=== PATIENT | female | born 1945 | race Caucasian/White ===

== ENCOUNTER → 2016-10-15 | Outpatient (CLI) | payer MEDICARE ==
[2016-10-15 08:30] LABS: Basophils % (A) 1 %; CHCM 31.8; Eosinophils # (A) 0.1 k/uL (0-0.7); Eosinophils % (A) 3 %; HCT 41.1 % (34.0-46.0); HDW 2.19; HGB 12.6 gm/dL (11.4-16.0); Luc # (Auto) 0.13; Luc % (Auto) 3; Lymphocytes # (A) 1.2 k/uL (1.0-4.8); Lymphocytes % (A) 24 %; MCH 29.2 pg (25.0-35.0); MCHC 30.8 g/dL (31.0-37.0); MCV 94.8 fL (80.0-100.0); Mean Platelet Volume 7.6; Monocytes # (A) 0.4 k/uL (0-1.0); Monocytes % (A) 7 %; Neutrophils # (A) 3.2 k/uL (1.3-7.7); Neutrophils % (A) 63 %; RBC 4.33 m/uL (3.80-5.40); RDW 13.6 % (11.5-15.5); WBC 5.1 k/uL (3.8-10.6); WBC (Perox) 5.31
[2016-10-15 08:39] LABS: ALT 37 U/L (9-52); AST 23 U/L (14-36); Alkaline Phosphatase 74 U/L (38-126); Anion Gap 9 mmol/L; Blood Urea Nitrogen 19 mg/dL (7-17); Calcium 9.3 mg/dL (8.4-10.2); Carbon Dioxide 28 mmol/L (22-30); Chloride 104 mmol/L (98-107); Glucose 100 mg/dL (74-99); Non-African American GFR(MDRD) 55 (>60 ml/min/1.73 sqM); Potassium 4.3 mmol/L (3.5-5.1); Sodium 141 mmol/L (137-145); Total Bilirubin 0.9 mg/dL (0.2-1.3); Total Protein 6.5 g/dL (6.3-8.2)
[2016-10-15 10:33] LABS: Prealbumin 21 mg/dL (18-36)
--- NOTE | 2016-10-15 11:41 | CT ---
EXAMINATION TYPE: CT abdomen pelvis w con DATE OF EXAM: 10/15/2016 9:22 AM COMPARISON: 10/11/2015 INDICATION: intraductal papillary mucinous neoplasm DLP: 1630 mGycm, Automated exposure control for dose reduction was used. CONTRAST: 100 ml mL of Visipaque 320. Study performed with Oral Contrast TECHNIQUE: Axial images were obtained from above the diaphragm to the pubic rami in the axial plane a t 5 mm thick sections. Reconstructed images are reviewed on the computer in the coronal plane. Prein travenous contrast imaging was performed through the abdomen. FINDINGS: Limited CT sections are obtained the lung bases. There is a calcification at the posterior lateral l eft lung base with some mild soft tissue surrounding. This appears central and likely is a 0.5 cm gra nuloma. Following stability over the course of 2 years is recommended. Lung bases are otherwise clear .. Small hiatal hernia is present. CT ABDOMEN: There is an anterior abdominal wall hernia containing mesenteric fat with an opening 1.3 cm. Series 8 image 35. Liver: There is mild diminished density within the liver compared to the spleen compatible with mild to moderate fatty infiltration of the liver. No discrete masses or cysts are evident Spleen: Normal Pancreas: Within the inferior posterior head of the pancreas at the uncinate process of the pancreas is hypodense measuring 1.8 x 1.3 cm in size. This is slightly larger than the comparison of 2016 ic h measured 1.0 x 1.3 cm . An additional area measuring 1.3 x 1.1 cm at the inferior uncinate process . This area is essentially stable from the comparison. An additional subtle hypodensities measuring 0 .7 cm within the proximal body posteriorly within the pancreas. The second area is less well visualiz ed on the precontrast images. This could be volume averaging with some fatty infiltration. This does appear to be persistent on the delayed images suggesting this may be a real and new finding. Adrenal glands: The adrenal glands are normal. Gallbladder: Normal Kidneys: No masses are evident. No hydronephrosis is present. No cysts are present. Delayed images were obtained through the kidneys, which remain unremarkable. Aorta: Vascular calcification is within the aorta. Inferior vena cava: Normal. CT PELVIS: Loops of bowel within the abdomen and pelvis are normal. There are loops of bowel which are incom pletely distended or lack oral contrast limiting their evaluation. Fecal debris is through the colon. Appendix: Not visualized. Surgical clip may be present. Correlate with the surgical history. Urinary bladder: Normal. Genitourinary structures: Uterus and ovaries are not identified. Phleboliths are within the pelvis. Osseous structures: No suspicious lytic or sclerotic lesions. Facet degenerative changes are present. IMPRESSIONS: 1. There appear to be 2 hypodensities within the head of the pancreas, the larger at 1.8 x 1.3 cm so mewhat increased in size from prior study. A new hypodensity may be within the proximal body of the p ancreas is well. 2. Probable granuloma within the left lung base, present 10/11/2015
== END ==
LOC: RADCTMAIN 07:51
PROVIDERS: ATTEND Surgery
DX: D49.0 Neoplasm of unspecified behavior of digestive system (principal)
CPT/HCPCS: 84134; 80053; 85025; 86301; 74150; 74177; 36415; Q9967

== ENCOUNTER 2016-10-21 11:45 | Emergency (ER) | payer MEDICARE ==
[2016-10-21 11:56] VITALS: RESP 16
[2016-10-21] MEDS ORDERED: ACETAMINOPHEN IV (For NPO) 1,000 MG in SALINE 100 100ML.BAG IVPB STA (13:22)
[2016-10-21] MEDS ORDERED: SODIUM CHLORIDE 0.9% 1,000 ML IV STA (13:22)
[2016-10-21 13:46] LABS: Basophils % (A) 0 %; CH 29.8; Eosinophils # (A) 0.2 k/uL (0-0.7); Eosinophils % (A) 5 %; HDW 2.26; HGB 12.5 gm/dL (11.4-16.0); Luc # (Auto) 0.19; Luc % (Auto) 4; Lymphocytes # (A) 1.4 k/uL (1.0-4.8); Lymphocytes % (A) 30 %; MCH 30.1 pg (25.0-35.0); MCHC 32.2 g/dL (31.0-37.0); MCV 93.6 fL (80.0-100.0); Monocytes # (A) 0.3 k/uL (0-1.0); Monocytes % (A) 6 %; Neutrophils # (A) 2.5 k/uL (1.3-7.7); Neutrophils % (A) 54 %; RBC 4.16 m/uL (3.80-5.40); RDW 13.5 % (11.5-15.5); WBC 4.5 k/uL (3.8-10.6); WBC (Perox) 4.64
[2016-10-21 13:51] LABS: Appearance,Urine Clear (Clear); Bilirubin,Urine Negative (Negative); Glucose,Urine (UA) Negative (Negative); Ketones,Urine Negative (Negative); Leukocyte Esterase,Urine Small (Negative); Mucus,Urine Rare /hpf; Nitrite,Urine Negative (Negative); PH, Urine 5.5 (5.0-8.0); Particle Count 1658; Protein,Urine Negative (Negative); RBC,Urine 1 /hpf (0-5); Specific Gravity,Urine 1.008 (1.001-1.035); Squamous Epithelial Cell,Urine 2 /hpf (0-4); UA Billing (MACRO vs. MICRO) MICRO; Urobilinogen,Urine <2.0 mg/dL (<2.0); WBC,Urine 7 /hpf (0-5)
--- NOTE | 2016-10-21 13:51 | ED ---
General Adult HPI - General Chief complaint: Abdominal Pain Stated complaint: Rt flank pain Time Seen by Provider: 10/21/16 13:14 Source: patient, RN notes reviewed, old records reviewed Mode of arrival: ambulatory Limitations: no limitations - History of Present Illness Initial comments: Patient 71-year-old female who presents emergency room today chief complaint of lower abdominal pain but certain 6 days ago. Does admit to pain right lower quadrant. States it's worse with movements. States worse when she goes to sit up. Patient denies any particular pain. Denies any bowel or bladder incontinence retention. Denies any saddle anesthesia. Patient does not that she had a CT performed approximate 5 days ago when his symptoms started. Patient denies any other complains are associated symptoms at this time. Patient denies any recent fever, chills, shortness of breath, chest pain, back pain, nausea or vomiting, numbness or tingling, dysuria or hematuria, constipation or diarrhea, headaches or visual changes, or any other complaints. - Related Data Home Medications Medication Instructions Recorded Confirmed Isosorbide Mononitrate ER [Imdur] 30 mg PO DAILY 02/10/14 10/21/16 Levothyroxine Sodium [Synthroid] 75 mcg PO DAILY 02/10/14 10/21/16 Nitroglycerin Sl Tabs [Nitrostat] 0.4 mg SUBLINGUAL Q5M PRN 02/10/14 10/21/16 Cholecalciferol [Vitamin D3] 2,000 unit PO DAILY 06/13/15 10/21/16 Baclofen [Lioresal] 10 mg PO TID PRN 08/03/15 10/21/16 Citalopram Hydrobromide [CeleXA] 20 mg PO DAILY 10/21/16 10/21/16 Cyclobenzaprine [Flexeril] 10 mg PO HS 10/21/16 10/21/16 Diltiazem HCl [Diltiazem 24Hr ER] 180 mg PO Q24H 10/21/16 10/21/16 [place]-3 Fatty Acids/Fish Oil [Fish 1 cap PO DAILY 10/21/16 10/21/16 Oil 1,000 mg Softgel] Previous Rx's Medication Instructions Recorded Sulfamethox-Tmp 800-160Mg [Bactrim 1 tab PO Q12HR #14 tab 10/21/16 DS 800-160 mg] Allergies Allergy/AdvReac Type Severity Reaction Status Date / Time cat pelt standardized Allergy Unknown Verified 10/21/16 11:57 allergenic ex clindamycin Allergy Rash/Hives Verified 10/21/16 11:57 atorvastatin calcium AdvReac LEG CRAMPS Verified 10/21/16 11:57 [From Lipitor] morphine AdvReac Nausea & Verified 10/21/16 11:57 Vomiting niacin AdvReac LEG CRAMPS Verified 10/21/16 11:57 Review of Systems ROS Statement: Those systems with pertinent positive or pertinent negative responses have been documented in the HPI. ROS Other: All systems not noted in ROS Statement are negative. Past Medical History Past Medical History: Chest Pain / Angina, GERD/Reflux, Hyperlipidemia, Hypertension, Osteoarthritis (OA), Skin Disorder, Thyroid Disorder Additional Past Medical History / Comment(s): Hx. pancreatitis with pancreatic cysts-dr. williamson, psoriasis, changes in bowel habits, having dysphagia w/ solids, estimate angina, hypertension, hyperlipidemia, vitamin D deficiency, degenerative disc disease of the lumbar spine and cervical spine status post multiple laminectomies. History of Any Multi-Drug Resistant Organisms: MRSA Date of last positivie culture/infection: 2013 MDRO Source:: spider bite on leg Past Surgical History: Adenoidectomy, Back Surgery, Bowel Resection, Cholecystectomy, Hysterectomy, Orthopedic Surgery, Tonsillectomy Additional Past Surgical History / Comment(s): Anterior cervical discectomy with fusion , lumbar fusion 3, R hip surgery, left 1st rib removal, hiatal hernia surg., recent EGD/colonoscopy, hysterectomy, cholecystectomy, lateral cataract surgery with lens implant. Past Anesthesia/Blood Transfusion Reactions: No Reported Reaction Past Psychological History: No Psychological Hx Reported Smoking Status: Never smoker Past Alcohol Use History: None Reported Past Drug Use History: None Reported - Past Family History Father History Unknown: Yes Family Medical History: Coronary Artery Disease (CAD) (Father at age of 72 from aneurysm and his heart) Additional Family Medical History / Comment(s): aortic aneurysm at 72 Mother Family Medical History: CVA/TIA (Mother at age of 80 from CVA) Brother(s) Family Medical History: No Reported History (Patient has 2 brothers no major medical problems) Sister(s) Family Medical History: Vascular Disorder (Patient has 6 sisters one of her sisters was diagnosed abdominal aortic aneurysm and she lost a kidney because of that) Son(s) Family Medical History: No Reported History (Patient has a son no major medical problems.) Daughter(s) Family Medical History: Unable to Obtain (Patient has adopted daughter) General Exam - General Exam Comments Initial Comments: General: The patient is awake and alert, in no distress, and does not appear acutely ill. Eye: Pupils are equal, round and reactive to light, extra-ocular movements are intact. No nystagmus. There is normal conjunctiva bilaterally. No signs of icterus. Ears, nose, mouth and throat: There are moist mucous membranes and no oral lesions. Neck: The neck is supple, there is no tenderness or JVD. Cardiovascular: There is a regular rate and rhythm. No murmur, rub or gallop is appreciated. Respiratory: Lungs are clear to auscultation, respirations are non-labored, breath sounds are equal. No wheezes, stridor, rales, or rhonchi. Gastrointestinal: Normal appearance of abdomen. Normal bowel sounds. Abdomen soft on palpation. Patient does have mild tenderness right lower quadrant. No rebound tenderness. No guarding. No CVA tenderness. Pain reproducible she sits up. No hernias appreciated. Musculoskeletal: Normal ROM, no tenderness. Strength 5/5. Sensation intact. Pulses equal bilaterally 2+. Neurological: A&O x 3. CN II-XII intact, There are no obvious motor or sensory deficits. Coordination appears grossly intact. Speech is normal. Skin: Skin is warm and dry and no rashes or lesions are noted. Psychiatric: Cooperative, appropriate mood & affect, normal judgment. Limitations: no limitations Course Vital Signs 10/21/16 11:51 Temperature 97.3 F L Pulse Rate 55 L Respiratory 16 Rate Blood Pressure 133/60 O2 Sat by Pulse 97 Oximetry Medical Decision Making - Medical Decision Making Case discussed in detail with attending physician Dr. Wilkinson. Patient reexamined at this time shows no signs of distress. Patient's labs been reviewed does show [address] performed on 10/15/2016 reviewed and does show 1. There appeared to be 2 hypodensities within the head of the pancreas, the larger at 1.81.3 cm somewhat increased in size from prior study. A new hypertensive may be within proximal body of the pancreas as well. 2. Probable granuloma within the left lung base, present on 10/11/2015 as read by radiologist Dr. Deleon. Patient's urinalysis reviewed and does show 7 white cells. Will be treated for urinary tract infection. Advised follow-up the family doctor for further evaluation of hypodensities in the pancreas as long with a repeat urinalysis. Advised return if any symptoms increase or worsen. - Lab Data Result diagrams: 10/21/16 13:10 10/21/16 13:10 Lab Results 10/21/16 10/21/16 10/21/16 Range/Units 13:10 13:10 13:10 WBC 4.5 (3.8-10.6) k/uL RBC 4.16 (3.80-5.40) m/uL Hgb 12.5 (11.4-16.0) gm/dL Hct 39.0 (34.0-46.0) % MCV 93.6 (80.0-100.0) fL MCH 30.1 (25.0-35.0) pg MCHC 32.2 (31.0-37.0) g/dL RDW 13.5 (11.5-15.5) % Plt Count 245 (150-450) k/uL Neutrophils % 54 % Lymphocytes % 30 % Monocytes % 6 % Eosinophils % 5 % Basophils % 0 % Neutrophils # 2.5 (1.3-7.7) k/uL Lymphocytes # 1.4 (1.0-4.8) k/uL Monocytes # 0.3 (0-1.0) k/uL Eosinophils # 0.2 (0-0.7) k/uL Basophils # 0.0 (0-0.2) k/uL Sodium 141 (137-145) mmol/L Potassium 4.5 (3.5-5.1) mmol/L Chloride 104 (98-107) mmol/L Carbon Dioxide 28 (22-30) mmol/L Anion Gap 9 mmol/L BUN 18 H (7-17) mg/dL Creatinine 1.00 (0.52-1.04) mg/dL Est GFR (MDRD) Af Amer >60 (>60 ml/min/1.73 sqM) Est GFR (MDRD) Non-Af 55 (>60 ml/min/1.73 sqM) Glucose 83 (74-99) mg/dL Calcium 9.3 (8.4-10.2) mg/dL Total Bilirubin 0.7 (0.2-1.3) mg/dL AST 25 (14-36) U/L ALT 40 (9-52) U/L Alkaline Phosphatase 77 (38-126) U/L Total Protein 6.5 (6.3-8.2) g/dL Albumin 4.0 (3.5-5.0) g/dL Amylase <30 L (30-110) U/L Lipase 72 (23-300) U/L Urine Color Light Yellow Urine Appearance Clear (Clear) Urine pH 5.5 (5.0-8.0) Ur Specific [place] 1.008 (1.001-1.035) Urine Protein Negative (Negative) Urine Glucose (UA) Negative (Negative) Urine Ketones Negative (Negative) Urine Blood Trace H (Negative) Urine Nitrate Negative (Negative) Urine Bilirubin Negative (Negative) Urine Urobilinogen <2.0 (<2.0) mg/dL Ur Leukocyte Esterase Small H (Negative) Urine RBC 1 (0-5) /hpf Urine WBC 7 H (0-5) /hpf Ur Squamous Epith Cells 2 (0-4) /hpf Urine Mucus Rare H (None) /hpf Disposition Clinical Impression: UTI (urinary tract infection), Pancreatic mass, Abdominal pain Disposition: HOME SELF-CARE Condition: Good Instructions: Abdominal Pain (ED), Urinary Tract Infection in Women (ED) Additional Instructions: Please follow-up the family doctor and discuss about hypodensities seen within the pancreas. Please use antibiotic as prescribed. Please return to emergency room if any fever, increase or worsening symptoms or any other concerns as discussed. Prescriptions: Sulfamethox-Tmp 800-160Mg [Bactrim DS 800-160 mg] 1 tab PO Q12HR #14 tab Time of Disposition: 14:29
[2016-10-21 13:57] LABS: ALT 40 U/L (9-52); AST 25 U/L (14-36); Alkaline Phosphatase 77 U/L (38-126); Amylase <30 U/L (30-110); Anion Gap 9 mmol/L; Blood Urea Nitrogen 18 mg/dL (7-17); Calcium 9.3 mg/dL (8.4-10.2); Carbon Dioxide 28 mmol/L (22-30); Chloride 104 mmol/L (98-107); Glucose 83 mg/dL (74-99); Non-African American GFR(MDRD) 55 (>60 ml/min/1.73 sqM); Potassium 4.5 mmol/L (3.5-5.1); Sodium 141 mmol/L (137-145); Total Bilirubin 0.7 mg/dL (0.2-1.3); Total Protein 6.5 g/dL (6.3-8.2)
--- NOTE | 2016-10-21 14:04 | XR ---
Abdomen HISTORY: Nausea and vomiting, right flank pain Frontal view of the abdomen correlated to prior CT abdomen 15 October 2016 There is retained contrast material present within the colon. Postoperative changes are again noted. No bowel obstruction or pneumoperitoneum is evident. Probable vascular calcifications within the pelv is. IMPRESSION: Transit of contrast into the colon.
[2016-10-21 14:45] VITALS: BP 124/59; PULSE 62; TEMP 97.9
== END 2016-10-21 15:15 | disposition home or self-care (01) ==
LOC: EC 11:45
DX: N39.0 Urinary tract infection, site not specified (principal); K86.9 Disease of pancreas, unspecified; E07.9 Disorder of thyroid, unspecified; E78.5 Hyperlipidemia, unspecified; K21.9 Gastro-esophageal reflux disease without esophagitis; I10 Essential (primary) hypertension; Z79.899 Other long term (current) drug therapy; Z88.1 Allergy status to other antibiotic agents; Z88.5 Allergy status to narcotic agent; Z88.8 Allergy status to other drugs, medicaments and biological substances; E55.9 Vitamin D deficiency, unspecified
CPT/HCPCS: 36415; 80053; 82150; 83690; 85025; 81001; 74000; 99284; 96365; J0131

== ENCOUNTER → 2016-11-21 | Outpatient (CLI) | payer MEDICARE ==
--- NOTE | 2016-11-25 06:45 | MM ---
Reason for exam: screening (asymptomatic). Last mammogram was performed 1 year ago. History: Patient is postmenopausal. Family history of breast cancer in maternal cousin at age 38. Took estrogen for 1 year beginning at age 54. Physical Findings: A clinical breast exam by your physician is recommended on an annual basis and results should be correlated with mammographic findings. MG 3D Screening Mammo W/Cad Bilateral CC and MLO view(s) were taken. Prior study comparison: November 20, 2015, bilateral MG screening mammo w CAD. October 23, 2014, bilateral MG screening mammo w CAD. March 22, 2014, left breast MG diagnostic mammo LT w CAD. September 21, 2013, bilateral digital screening mammo w/CAD. The breast tissue is heterogeneously dense. This may lower the sensitivity of mammography. There is chronic nodularity in the left breast. No significant changes when compared with prior studies. ASSESSMENT: Negative, BI-RAD 1 RECOMMENDATION: Routine screening mammogram of both breasts in 1 year.
== END | disposition home or self-care (01) ==
LOC: RADMAMWWP 13:38
PROVIDERS: ATTEND Family Medicine
DX: Z12.31 Encounter for screening mammogram for malignant neoplasm of breast (principal)
CPT/HCPCS: 77063; G0202

== ENCOUNTER → 2017-02-26 | Outpatient (CLI) | payer MEDICARE, OTHER ==
[2017-02-26 09:31] LABS: ALT 29 U/L (9-52); AST 21 U/L (14-36); Blood Urea Nitrogen 23 mg/dL (7-17); Cholesterol 223 mg/dL (<200); HDL Cholesterol 89 mg/dL (40-60); Non-African American GFR(MDRD) 57 (>60 ml/min/1.73 sqM); Triglycerides 81 mg/dL (<150)
== END | disposition home or self-care (01) ==
LOC: LABWHC1 08:38
PROVIDERS: ATTEND Internal Medicine Interventional Cardiology
DX: Z01.812 Encounter for preprocedural laboratory examination (principal); R51 Headache; R68.89 Other general symptoms and signs; M54.2 Cervicalgia; E78.2 Mixed hyperlipidemia; R29.818 Other symptoms and signs involving the nervous system
CPT/HCPCS: 36415; 80061; 82565; 84450; 84460; 84520

== ENCOUNTER → 2017-02-28 | Outpatient (CLI) | payer MEDICARE, OTHER ==
--- NOTE | 2017-02-28 14:42 | MR ---
MR brain without contrast and MRI cervical spine with and without contrast HISTORY: Muscle spasms left-sided head, neck and arm Multiplanar multisequence and postcontrast images through the brain and cervical spine following 15 c c MultiHance IV Correlation to CT brain 29 June 2016 Brain MRI: Periventricular hyperintensities are present on inversion recovery and T2-weighted sequenc es, approximately 5-10 lesions. Mild cortical atrophy is noted. There is no hemorrhage or hydrocephal us. Pituitary, corpus callosum, cervical medullary junction, cerebellopontine angles are unremarkable . There is no restricted diffusion to suggest subacute ischemia. There are normal vascular flow voids . Mild mucosal disease present within the maxillary sinuses. IMPRESSION: Nonspecific white matter demyelination may represent chronic small vessel ischemia. Age-r elated atrophy. Cervical spine MRI: Correlation to CT cervical spine dated 26 Feb 2014 Status post fusion of C5 C6-7 is again noted. Cervical cord signal is normal. Cervical vertebral bodi es show preserved height and alignment. No evident central canal stenosis. C2-3: Unremarkable C3-4: There is bilateral foraminal encroachment due to uncovertebral joint hypertrophy facet arthropa thy. Small posterior broad-based disc bulge causes minimal anterior mass effect on the thecal sac C4-5: Unremarkable C5-6: There may be some left-sided foraminal encroachment. C6-7: No evident foraminal encroachment. C7-T1: Unremarkable No abnormal enhancement following contrast administration. IMPRESSION: Postop changes. Multilevel foraminal encroachment. Cervical cord signal is normal.
--- NOTE | 2017-02-28 17:21 | MR ---
EXAMINATION TYPE: MR angio head wo con DATE OF EXAM: 02/28/2017 COMPARISON: MR brain same date HISTORY: Muscle spasms on left side head, neck, and arm, Headaches, Family hx of aneurysm TECHNIQUE: Time of flight images focusing on the [place] were performed without contrast. FINDINGS: Vertebrobasilar system, internal carotid arteries are patent. There is no evident aneurysm or significant vasculitis, no stenosis or abnormal filling defect. No vascular malformation. IMPRESSION: Normal [place] MRA
== END ==
LOC: RADMRIMAIN 12:57
PROVIDERS: ATTEND Nurse Practitioner Acute Care
DX: M99.71 Connective tissue and disc stenosis of intervertebral foramina of cervical region (principal); R90.89 Other abnormal findings on diagnostic imaging of central nervous system; R51 Headache; G31.1 Senile degeneration of brain, not elsewhere classified; Z98.890 Other specified postprocedural states
CPT/HCPCS: 70544; 70553; 72156; A9577

== ENCOUNTER → 2017-03-19 | Outpatient (CLI) | payer MEDICARE, OTHER ==
[2017-03-19 08:56] LABS: Blood Urea Nitrogen 21 mg/dL (7-17); Non-African American GFR(MDRD) >60 (>60 ml/min/1.73 sqM)
--- NOTE | 2017-03-19 10:36 | CT ---
EXAMINATION TYPE: CT abdomen pelvis w con DATE OF EXAM: 03/19/2017 HISTORY: Pancreatic cyst CT DLP: 876.7mGycm Automated Exposure Control for Dose Reduction was Utilized. CONTRAST: CT scan of the abdomen and pelvis is performed with oral and with IV Contrast, patient injected with 100 mL of Omnipaque 300. COMPARISON: CT abdomen October 15, 2016. Older studies back 3 January 04, 2012. FINDINGS: LUNG BASES: There is calcified 9 mm subpleural nodule left lung base on axial image 6. LIVER/GB: Cholecystectomy clips are redemonstrated. PANCREAS: There is stable 1.4 x 1.3 cm low dense lesion inferior uncinate process of pancreas seen be st image 49 series 4 not significantly changed from September 2013. There is 6 mm hypodense lesion val[place] creatic body inferiorly on coronal image 31 series 10 not significantly changed from most recent stud y, not as well seen on the remote exams. There is a stable 1.8 x 1.3 cm low dense lesion in the uncin ate junction near the portable vein confluence on axial image 37 unchanged in appearance from prior s tudy. SPLEEN: No significant abnormality is seen. ADRENALS: No significant abnormality is seen. KIDNEYS: A circumaortic left renal vein is redemonstrated. BOWEL: Some diverticula are redemonstrated in the left colon. Postsurgical changes near diaphragmatic hiatus are redemonstrated. There is persistent small hiatal hernia. Sutures in sigmoid colon are pre sent. Scattered diverticula are present in left and sigmoid colon. LYMPH NODES: No greater than 1cm abdominal lymph nodes are appreciated. OSSEOUS STRUCTURES: Ossific fusion of posterior elements in the lower lumbar spine is redemonstrated. There is facet arthropathy in mid to lower lumbar levels. Disk space narrowing lumbosacral junction is noted. OTHER: No significant additional abnormality is seen. IMPRESSION: Stable nonspecific low dense lesions throughout the pancreas from most recent study. No new masses or ductal dilatation is present.
== END | disposition home or self-care (01) ==
LOC: RADCTMAIN 08:18
PROVIDERS: ATTEND Family Medicine
DX: K86.9 Disease of pancreas, unspecified (principal)
CPT/HCPCS: 82565; 84520; 74177; 36415; Q9967

== ENCOUNTER → 2017-04-29 | Outpatient (CLI) | payer MEDICARE, OTHER ==
[2017-04-29 09:38] LABS: Basophils # (A) 0.1 k/uL (0-0.2); Basophils % (A) 1 %; Eosinophils # (A) 0.2 k/uL (0-0.7); Eosinophils % (A) 3 %; HCT 39.8 % (34.0-46.0); HDW 2.17; HGB 13.2 gm/dL (11.4-16.0); Luc # (Auto) 0.17; Luc % (Auto) 3; Lymphocytes # (A) 1.5 k/uL (1.0-4.8); Lymphocytes % (A) 26 %; MCH 31.2 pg (25.0-35.0); MCHC 33.1 g/dL (31.0-37.0); MCV 94.3 fL (80.0-100.0); Mean Platelet Volume 7.4; Monocytes # (A) 0.3 k/uL (0-1.0); Monocytes % (A) 5 %; Neutrophils # (A) 3.6 k/uL (1.3-7.7); Neutrophils % (A) 62 %; RBC 4.22 m/uL (3.80-5.40); RDW 13.6 % (11.5-15.5); WBC 5.8 k/uL (3.8-10.6); WBC (Perox) 6.22
[2017-04-29 10:52] LABS: Erythrocyte Sedimentation Rate 10 mm/hr (0-20)
== END | disposition home or self-care (01) ==
LOC: LABWHC1 09:02
PROVIDERS: ATTEND Physical Medicine & Rehabilitation
DX: M54.2 Cervicalgia (principal); R20.2 Paresthesia of skin; Z98.1 Arthrodesis status
CPT/HCPCS: 36415; 85025; 85652; 86140

== ENCOUNTER → 2017-06-05 | Outpatient (CLI) | payer MEDICARE, OTHER ==
--- NOTE | 2017-06-05 09:24 | FL ---
EXAMINATION TYPE: FL barium swallow DATE OF EXAM: 06/05/2017 COMPARISON: NONE HISTORY: Dysphasia TECHNIQUE: A double contrast UGI study is performed. FINDINGS: Contrast passes from the distal esophagus through the Dylon fundoplication with out hesita ncy. No extravasation of contrast is evident. Postsurgical changes are evident. Presbyesophagus is present with secondary and tertiary contraction s. There is incomplete stripping of the esophageal bolus during the horizontal drinking position. No intraluminal or extramural defects are evident. Overhead radiographs were obtained. IMPRESSIONS: 1. Presbyesophagus. 2. These on fundoplication is widely patent some mild slippage of the gastric region as a hiatal max ia may be present.
== END ==
LOC: RADFLMAIN 08:01
PROVIDERS: ATTEND Family Medicine
DX: K22.8 Other specified diseases of esophagus (principal)
CPT/HCPCS: 74220

== ENCOUNTER 2017-06-29 09:06 | Day surgery (SDC) | payer MEDICARE, OTHER ==
[2017-06-29] MEDS ORDERED: LACTATED RINGERS 1,000 ML IV SCH (09:40)
[2017-06-29] MEDS ORDERED: LIDOCAINE 1% 20 ML VIAL (10MG/ML) FOR IV START INTRADERMA PRN (09:40)
[2017-06-29] MEDS ORDERED: PROPOFOL 10 MG/ML 20 ML VIAL IV ONE (10:24)
[2017-06-29] MEDS ORDERED: LIDOCAINE 1% INJ 10MG/ML (20 ML MDV) ONE (10:24)
--- NOTE | 2017-06-29 10:27 | P.GSHP ---
History of Present Illness H&P Date: 06/29/17 Chief Complaint: GERD, screening colonoscopy Is a 72-year-old female.. She presents today for EGD. She also presents for screening colonoscopy. Her last colonoscopy was over 4 years ago. She has a history of diverticulosis. Past Medical History Past Medical History: Chest Pain / Angina, GERD/Reflux, Hyperlipidemia, Hypertension, Osteoarthritis (OA), Skin Disorder, Thyroid Disorder Additional Past Medical History / Comment(s): Hx. pancreatitis with pancreatic cysts-dr. williamson, psoriasis, changes in bowel habits, having dysphagia w/ solids, estimate angina, hypertension, hyperlipidemia, vitamin D deficiency, degenerative disc disease of the lumbar spine and cervical spine status post multiple laminectomies. History of Any Multi-Drug Resistant Organisms: MRSA Date of last positivie culture/infection: 2013 MDRO Source:: spider bite on leg Past Surgical History: Adenoidectomy, Back Surgery, Bowel Resection, Cholecystectomy, Hysterectomy, Orthopedic Surgery, Tonsillectomy Additional Past Surgical History / Comment(s): Anterior cervical discectomy with fusion , lumbar fusion 3, R hip surgery, left 1st rib removal, hiatal hernia surg., recent EGD/colonoscopy, hysterectomy, cholecystectomy, lateral cataract surgery with lens implant. Past Anesthesia/Blood Transfusion Reactions: No Reported Reaction Past Psychological History: No Psychological Hx Reported Smoking Status: Never smoker Past Alcohol Use History: None Reported Past Drug Use History: None Reported - Past Family History Father History Unknown: Yes Family Medical History: Coronary Artery Disease (CAD) Additional Family Medical History / Comment(s): aortic aneurysm at 72 Mother Family Medical History: CVA/TIA Brother(s) Family Medical History: No Reported History Sister(s) Family Medical History: Vascular Disorder Son(s) Family Medical History: No Reported History Daughter(s) Family Medical History: Unable to Obtain Medications and Allergies Home Medications Medication Instructions Recorded Confirmed Type Isosorbide Mononitrate ER [Imdur] 30 mg PO DAILY 02/10/14 06/29/17 History Levothyroxine Sodium [Synthroid] 75 mcg PO DAILY 02/10/14 06/29/17 History Nitroglycerin Sl Tabs [Nitrostat] 0.4 mg SUBLINGUAL Q5M PRN 02/10/14 06/29/17 History Cholecalciferol [Vitamin D3] 2,000 unit PO DAILY 06/13/15 06/29/17 History Baclofen [Lioresal] 10 mg PO TID PRN 08/03/15 06/29/17 History Citalopram Hydrobromide [CeleXA] 20 mg PO DAILY 10/21/16 06/29/17 History Cyclobenzaprine [Flexeril] 10 mg PO HS 10/21/16 06/29/17 History Diltiazem HCl [Diltiazem 24Hr ER] 180 mg PO Q24H 10/21/16 06/29/17 History [place]-3 Fatty Acids/Fish Oil [Fish 1 cap PO DAILY 10/21/16 06/29/17 History Oil 1,000 mg Softgel] Sulfamethox-Tmp 800-160Mg [Bactrim 1 tab PO Q12HR #14 tab 10/21/16 06/29/17 Rx DS 800-160 mg] Allergies Allergy/AdvReac Type Severity Reaction Status Date / Time cat pelt standardized Allergy Unknown Verified 10/21/16 11:57 allergenic ex clindamycin Allergy Rash/Hives Verified 10/21/16 11:57 atorvastatin calcium AdvReac LEG CRAMPS Verified 10/21/16 11:57 [From Lipitor] morphine AdvReac Nausea & Verified 10/21/16 11:57 Vomiting niacin AdvReac LEG CRAMPS Verified 10/21/16 11:57 Surgical - Exam Vital Signs Temp Pulse Resp BP Pulse Ox 98.1 F 57 L 16 133/76 98 06/29/17 09:44 06/29/17 09:44 06/29/17 09:44 06/29/17 09:44 06/29/17 09:44 - General well developed, no distress - Eyes PERRL - ENT normal pinna - Neck no masses - Respiratory normal expansion - Cardiovascular Rhythm: regular - Abdomen Abdomen: soft, non tender Assessment and Plan Plan: GERD we'll perform EGD. We'll also perform screening colonoscopy.
[2017-06-29] MEDS ORDERED: ALBUTEROL NEBULIZED 2.5 MG/3 ML INHALATION ONE (10:33)
--- NOTE | 2017-06-29 10:47 | P.OP ---
Date of Procedure: 06/29/17 Preoperative Diagnosis: GERD Left lower quadrant pain Postoperative Diagnosis: Diverticulosis Transverse colon polyp Esophagitis Possible slipped fundoplication Procedure(s) Performed: EGD Colonoscopy Anesthesia: MAC Surgeon: Deng Camara Pathology: other (Antrum, esophagus) Condition: stable Disposition: PACU Description of Procedure: The patient's placed on the endoscopy table in the lateral position. She received IV sedation. The gastroscope placed oropharynx passed in the esophagus and stomach. Scope was then placed through the pylorus. The first and second portion of the duodenum appeared normal. Scope was then brought back the antrum and this appeared mildly inflamed a biopsies performed. The scope was then retroflexed meters some appeared normal. Patient appeared to have a small hiatal hernia. The fundoplication wrap appeared to have slipped distally and the stomach just below the GE junction. The distal esophagus was examined. The GE junction was at the 7 is. The distal esophagus. Inflamed and a biopsies performed. The proximal esophagus appeared normal. Scope was withdrawn for patient. Digital rectal exam was performed which revealed no abnormalities. Flexible colonoscope was then placed patient anus passed throughout the entire colon. The ileocecal valve was visualized. The cecum appeared normal. The ascending colon appeared normal. In the transverse colon was a small polyp seen. This was removed forcep. The remainder of the transverse colon appeared normal. In the descending and sigmoid colon there is moderate diverticular changes. There is no active diverticulitis. The scope was then brought back to the rectum and this appeared normal. Scope was withdrawn for patient.
[2017-06-29 11:18] VITALS: TEMP 97.6
[2017-06-29 12:53] VITALS: BP 126/58; PULSE 72; RESP 16
--- NOTE | 2017-06-29 12:56 | XR ---
EXAMINATION TYPE: XR chest 1V DATE OF EXAM: 06/29/2017 COMPARISON: NONE HISTORY: Cough possible aspiration TECHNIQUE: Single frontal view of the chest is obtained. FINDINGS: Linear density left upper lobe is most typical discoid atelectasis. No pneumothorax or ple ural effusion. Arthropathy of the shoulders. No overt failure. Atherosclerotic change aorta. IMPRESSION: 1. Subsegmental changes left upper lobe most typical of atelectasis.
== END 2017-06-29 13:15 | disposition home or self-care (01) ==
LOC: ORWHC2ENDO 09:06
PROVIDERS: ATTEND Surgery
DX: K29.50 Unspecified chronic gastritis without bleeding (principal); K21.0 Gastro-esophageal reflux disease with esophagitis; D12.3 Benign neoplasm of transverse colon; K57.30 Diverticulosis of large intestine without perforation or abscess without bleeding; I10 Essential (primary) hypertension; E78.5 Hyperlipidemia, unspecified; M19.90 Unspecified osteoarthritis, unspecified site; E07.9 Disorder of thyroid, unspecified; E55.9 Vitamin D deficiency, unspecified; Z79.899 Other long term (current) drug therapy; Z79.2 Long term (current) use of antibiotics; Z88.1 Allergy status to other antibiotic agents; Z88.5 Allergy status to narcotic agent; Z88.8 Allergy status to other drugs, medicaments and biological substances; Z91.09 Other allergy status, other than to drugs and biological substances
CPT/HCPCS: 88305; 88312; 88342; 71010; 45380; 43239; J2001; J2704; 45385

== ENCOUNTER → 2017-11-10 | Outpatient (CLI) | payer MEDICARE, OTHER ==
[2017-11-10 17:24] LABS: Blood Urea Nitrogen 21 mg/dL (7-17)
--- NOTE | 2017-11-10 21:54 | CT ---
EXAMINATION TYPE: CT abdomen w con DATE OF EXAM: 11/10/2017 HISTORY: Follow up for pancreatic cyst. CT DLP: 636.5mGycm Automated Exposure Control for Dose Reduction was Utilized. CONTRAST: CT scan of the abdomen is performed with oral and with IV Contrast, patient injected with 80ml mL of Visipaque 320. COMPARISON: CT abdomen and pelvis March 19, 2017 and older studies back to May 26, 2011. FINDINGS: LUNG BASES: There is stable calcified 9 x 6 mm subpleural left lower lobe nodule or granuloma axial i mage 6. LIVER/GB: Cholecystectomy clips are redemonstrated. PANCREAS: Pancreas is stable and normal in size. There is stable thin-walled cyst or cystic lesion ne ar head level measuring 1.2 x 0.8 cm axial image 26. Inferior to this in the medial aspect of uncinat e process there is 1.0 x 0.9 cm thin-walled cystic lesion axial image 33 redemonstrated. Finally ther e is heterogeneity with suspected 5 mm mm low dense lesion pancreatic body axial image 26 redemonstra ardha. No new suspicious solid or cystic masses are identified. No ductal dilatation or glandular calci fications noted. SPLEEN: No significant abnormality is seen. ADRENALS: No significant abnormality is seen. KIDNEYS: A circumaortic left renal vein is redemonstrated. BOWEL: Surgical changes from [place] fundoplication surgery at and just above diaphragm are redemonstr ated without significant change from most recent recent. The oral contrast does not reach colonic lev el. There is prominence of fecal material in the right and transverse colon. There is no suspicious s mall or large bowel dilatation. LYMPH NODES: No greater than 1cm abdominal lymph nodes are appreciated. OSSEOUS STRUCTURES: There is some postsurgical change in the lower lumbar spine redemonstrated. Some ossific fusion of posterior elements is again seen. OTHER: There is mild calcified plaque of the aorta redemonstrated. IMPRESSION: 3 thin-walled cystic lesions scattered throughout pancreas not significantly changed from most recent CT. No new solid or cystic masses identified.
== END | disposition home or self-care (01) ==
LOC: RADCTMAIN 16:36
PROVIDERS: ATTEND Internal Medicine Critical Care Medicine
DX: K86.2 Cyst of pancreas (principal)
CPT/HCPCS: 82565; 84520; 74160; 36415; Q9967

== ENCOUNTER 2017-11-14 12:44 | Emergency (ER) | payer MEDICARE, OTHER ==
[2017-11-14] MEDS ORDERED: SODIUM CHLORIDE 0.9% 1,000 ML IV STA (13:34)
[2017-11-14] MEDS ORDERED: METOCLOPRAMIDE 5 MG/ML 2 ML VIAL IVP STA (13:34)
[2017-11-14] MEDS ORDERED: FAMOTIDINE 20 MG/2 ML VIAL IV STA (13:35)
--- NOTE | 2017-11-14 14:10 | ED ---
Abdominal Pain HPI - General Chief Complaint: Abdominal Pain Stated Complaint: Vomiting, abdominal pain Time Seen by Provider: 11/14/17 13:25 Source: patient, RN notes reviewed Mode of arrival: ambulatory Limitations: no limitations - History of Present Illness Initial Comments: This a 72-year-old female presents emergency Department chief complaint nausea vomiting epigastric discomfort. Patient states been present last to 3 days. Patient believes this is from not having her normal stomach months. She states that she ran out. Patient denies fever, chills, chest pain or shortness of breath. Patient states she is currently being treated for dental infection which is improving. Patient states she was given Augmentin states that she is ALLERGIC reaction to clindamycin switched to Augmentin by Dr. Montgomery. Patient denies any diarrhea constipation this time denies any dysuria or hematuria. Patient also states that she has a hiatal hernia and pancreatic cyst though she had CT within last week which showed no changes. - Related Data Home Medications Medication Instructions Recorded Confirmed Levothyroxine Sodium [Synthroid] 75 mcg PO DAILY 02/10/14 11/14/17 Nitroglycerin Sl Tabs [Nitrostat] 0.4 mg SUBLINGUAL Q5M PRN 02/10/14 11/14/17 Cholecalciferol [Vitamin D3] 2,000 unit PO DAILY 06/13/15 11/14/17 Baclofen [Lioresal] 10 mg PO TID PRN 08/03/15 11/14/17 Citalopram Hydrobromide [CeleXA] 20 mg PO DAILY 10/21/16 11/14/17 Cyclobenzaprine [Flexeril] 10 mg PO HS 10/21/16 11/14/17 [place]-3 Fatty Acids/Fish Oil [Fish 1 cap PO DAILY 10/21/16 11/14/17 Oil 1,000 mg Softgel] Amoxic-Pot Clav 875-125Mg 1 tab PO Q12HR 11/14/17 11/14/17 [Augmentin 875-125] Clindamycin HCl 300 mg PO Q12HR 11/14/17 11/14/17 Ludent Fluoride 1mg 1 tab PO DAILY 11/14/17 11/14/17 Magnesium Citrate 125 mg PO DAILY 11/14/17 11/14/17 Oxybutynin Chloride [Ditropan XL] 10 mg PO DAILY 11/14/17 11/14/17 Previous Rx's Medication Instructions Recorded Ondansetron Odt [Zofran Odt] 4 mg PO Q8HR PRN #20 tab 11/14/17 Allergies Allergy/AdvReac Type Severity Reaction Status Date / Time cat pelt standardized Allergy Unknown Verified 11/14/17 13:58 allergenic ex clindamycin Allergy Rash/Hives Verified 11/14/17 13:58 atorvastatin calcium AdvReac LEG CRAMPS Verified 11/14/17 13:58 [From Lipitor] morphine AdvReac Nausea & Verified 11/14/17 13:58 Vomiting niacin AdvReac LEG CRAMPS Verified 11/14/17 13:58 Review of Systems ROS Statement: Those systems with pertinent positive or pertinent negative responses have been documented in the HPI. ROS Other: All systems not noted in ROS Statement are negative. Past Medical History Past Medical History: Chest Pain / Angina, GERD/Reflux, Hyperlipidemia, Hypertension, Osteoarthritis (OA), Skin Disorder, Thyroid Disorder Additional Past Medical History / Comment(s): Hx. pancreatitis with pancreatic cysts- monitoring, psoriasis, changes in bowel habits, having dysphagia w/ solids, estimate angina, hypertension, hyperlipidemia, vitamin D deficiency, degenerative disc disease of the lumbar spine and cervical spine status post multiple laminectomies. History of Any Multi-Drug Resistant Organisms: MRSA Date of last positivie culture/infection: 2013 MDRO Source:: spider bite on leg Past Surgical History: Adenoidectomy, Back Surgery, Bowel Resection, Cholecystectomy, Hysterectomy, Orthopedic Surgery, Tonsillectomy Additional Past Surgical History / Comment(s): Anterior cervical discectomy with fusion , lumbar fusion 3, R hip surgery, left 1st rib removal, hiatal hernia surg., recent EGD/colonoscopy, hysterectomy, cholecystectomy, lateral cataract surgery with lens implant. Past Anesthesia/Blood Transfusion Reactions: No Reported Reaction Past Psychological History: No Psychological Hx Reported Smoking Status: Never smoker Past Alcohol Use History: None Reported Past Drug Use History: None Reported - Past Family History Father History Unknown: Yes Family Medical History: Coronary Artery Disease (CAD) Additional Family Medical History / Comment(s): aortic aneurysm at 72 Mother Family Medical History: CVA/TIA Brother(s) Family Medical History: No Reported History Sister(s) Family Medical History: Vascular Disorder Son(s) Family Medical History: No Reported History Daughter(s) Family Medical History: Unable to Obtain General Exam Limitations: no limitations General appearance: alert, in no apparent distress Head exam: Present: atraumatic, normocephalic, normal inspection Eye exam: Present: normal appearance, PERRL, EOMI. Absent: scleral icterus, conjunctival injection, periorbital swelling ENT exam: Present: normal exam, normal oropharynx, mucous membranes moist Neck exam: Present: normal inspection, full ROM. Absent: tenderness, meningismus, lymphadenopathy Respiratory exam: Present: normal lung sounds bilaterally. Absent: respiratory distress, wheezes, rales, rhonchi, stridor Cardiovascular Exam: Present: regular rate, normal rhythm, normal heart sounds. Absent: systolic murmur, diastolic murmur, rubs, gallop, clicks GI/Abdominal exam: Present: soft, tenderness (Mild epigastric), normal bowel sounds. Absent: distended, guarding, rebound, rigid Back exam: Absent: CVA tenderness (R), CVA tenderness (L) Course Vital Signs 11/14/17 13:13 Temperature 97.0 F L Pulse Rate 71 Respiratory 20 Rate Blood Pressure 128/65 O2 Sat by Pulse 99 Oximetry Medical Decision Making - Medical Decision Making 72-year-old female presented for epigastric summer nausea vomiting. Patient states she feels improved after IV fluids and antiemetics. This may be related to taking Augmentin currently. Also the related to her medication that she ran out. Patient will be discharged with Zofran she is advised call her physician on Thursday and return for any worsening symptoms. She was updated on lab results which are unremarkable. - Lab Data Result diagrams: 11/14/17 13:55 11/14/17 13:55 Lab Results 11/14/17 11/14/17 11/14/17 Range/Units 13:55 13:55 13:55 WBC 9.1 (3.8-10.6) k/uL RBC 4.33 (3.80-5.40) m/uL Hgb 13.0 (11.4-16.0) gm/dL Hct 39.6 (34.0-46.0) % MCV 91.6 (80.0-100.0) fL MCH 30.0 (25.0-35.0) pg MCHC 32.7 (31.0-37.0) g/dL RDW 13.3 (11.5-15.5) % Plt Count 307 (150-450) k/uL Neutrophils % 70 % Lymphocytes % 16 % Monocytes % 6 % Eosinophils % 5 % Basophils % 0 % Neutrophils # 6.4 (1.3-7.7) k/uL Lymphocytes # 1.5 (1.0-4.8) k/uL Monocytes # 0.5 (0-1.0) k/uL Eosinophils # 0.5 (0-0.7) k/uL Basophils # 0.0 (0-0.2) k/uL Sodium 132 L (137-145) mmol/L Potassium 3.9 (3.5-5.1) mmol/L Chloride 96 L (98-107) mmol/L Carbon Dioxide 28 (22-30) mmol/L Anion Gap 8 mmol/L BUN 19 H (7-17) mg/dL Creatinine 1.00 (0.52-1.04) mg/dL Est GFR (MDRD) Af Amer >60 (>60 ml/min/1.73 sqM) Est GFR (MDRD) Non-Af 54 (>60 ml/min/1.73 sqM) Glucose 100 H (74-99) mg/dL Plasma Lactic Acid John 0.8 (0.7-2.0) mmol/L Calcium 8.9 (8.4-10.2) mg/dL Total Bilirubin 0.7 (0.2-1.3) mg/dL AST 25 (14-36) U/L ALT 44 (9-52) U/L Alkaline Phosphatase 70 (38-126) U/L Troponin I (0.000-0.034) ng/mL Total Protein 6.2 L (6.3-8.2) g/dL Albumin 3.7 (3.5-5.0) g/dL Amylase 46 (30-110) U/L Lipase 143 (23-300) U/L Urine Color Urine Appearance (Clear) Urine pH (5.0-8.0) Ur Specific [place] (1.001-1.035) Urine Protein (Negative) Urine Glucose (UA) (Negative) Urine Ketones (Negative) Urine Blood (Negative) Urine Nitrite (Negative) Urine Bilirubin (Negative) Urine Urobilinogen (<2.0) mg/dL Ur Leukocyte Esterase (Negative) 11/14/17 11/14/17 Range/Units 13:55 13:55 WBC (3.8-10.6) k/uL RBC (3.80-5.40) m/uL Hgb (11.4-16.0) gm/dL Hct (34.0-46.0) % MCV (80.0-100.0) fL MCH (25.0-35.0) pg MCHC (31.0-37.0) g/dL RDW (11.5-15.5) % Plt Count (150-450) k/uL Neutrophils % % Lymphocytes % % Monocytes % % Eosinophils % % Basophils % % Neutrophils # (1.3-7.7) k/uL Lymphocytes # (1.0-4.8) k/uL Monocytes # (0-1.0) k/uL Eosinophils # (0-0.7) k/uL Basophils # (0-0.2) k/uL Sodium (137-145) mmol/L Potassium (3.5-5.1) mmol/L Chloride (98-107) mmol/L Carbon Dioxide (22-30) mmol/L Anion Gap mmol/L BUN (7-17) mg/dL Creatinine (0.52-1.04) mg/dL Est GFR (MDRD) Af Amer (>60 ml/min/1.73 sqM) Est GFR (MDRD) Non-Af (>60 ml/min/1.73 sqM) Glucose (74-99) mg/dL Plasma Lactic Acid John (0.7-2.0) mmol/L Calcium (8.4-10.2) mg/dL Total Bilirubin (0.2-1.3) mg/dL AST (14-36) U/L ALT (9-52) U/L Alkaline Phosphatase (38-126) U/L Troponin I <0.012 (0.000-0.034) ng/mL Total Protein (6.3-8.2) g/dL Albumin (3.5-5.0) g/dL Amylase (30-110) U/L Lipase (23-300) U/L Urine Color Yellow Urine Appearance Clear (Clear) Urine pH 6.5 (5.0-8.0) Ur Specific [place] 1.015 (1.001-1.035) Urine Protein Negative (Negative) Urine Glucose (UA) Negative (Negative) Urine Ketones Negative (Negative) Urine Blood Negative (Negative) Urine Nitrite Negative (Negative) Urine Bilirubin Negative (Negative) Urine Urobilinogen 2.0 (<2.0) mg/dL Ur Leukocyte Esterase Negative (Negative) Disposition Clinical Impression: Nausea & vomiting, Epigastric discomfort Disposition: HOME SELF-CARE Condition: Stable Instructions: Acute Nausea and Vomiting (ED) Additional Instructions: Please return to the Emergency Department if symptoms worsen or any other concerns. Prescriptions: Ondansetron Odt [Zofran Odt] 4 mg PO Q8HR PRN #20 tab PRN Reason: Nausea Referrals: Roxanna Lozano MD [Primary Care Provider] - 1-2 days Time of Disposition: 15:10
[2017-11-14 14:15] LABS: Basophils % (A) 0 %; Eosinophils # (A) 0.5 k/uL (0-0.7); Eosinophils % (A) 5 %; HCT 39.6 % (34.0-46.0); Lymphocytes # (A) 1.5 k/uL (1.0-4.8); Lymphocytes % (A) 16 %; MCHC 32.7 g/dL (31.0-37.0); MCV 91.6 fL (80.0-100.0); Mean Platelet Volume 6.9; Monocytes # (A) 0.5 k/uL (0-1.0); Monocytes % (A) 6 %; Neutrophils # (A) 6.4 k/uL (1.3-7.7); Neutrophils % (A) 70 %; Platelet Count 307 k/uL (150-450); RBC 4.33 m/uL (3.80-5.40); RDW 13.3 % (11.5-15.5); WBC 9.1 k/uL (3.8-10.6)
[2017-11-14 14:20] LABS: Appearance,Urine Clear (Clear); Bilirubin,Urine Negative (Negative); Blood,Urine Negative (Negative); Color,Urine Yellow; Glucose,Urine (UA) Negative (Negative); Ketones,Urine Negative (Negative); Leukocyte Esterase,Urine Negative (Negative); Nitrite,Urine Negative (Negative); PH, Urine 6.5 (5.0-8.0); Protein,Urine Negative (Negative); Specific Gravity,Urine 1.015 (1.001-1.035)
[2017-11-14 14:29] LABS: ALT 44 U/L (9-52); AST 25 U/L (14-36); Albumin 3.7 g/dL (3.5-5.0); Alkaline Phosphatase 70 U/L (38-126); Amylase 46 U/L (30-110); Anion Gap 8 mmol/L; Blood Urea Nitrogen 19 mg/dL (7-17); Calcium 8.9 mg/dL (8.4-10.2); Carbon Dioxide 28 mmol/L (22-30); Chloride 96 mmol/L (98-107); Glucose 100 mg/dL (74-99); Lipase 143 U/L (23-300); Potassium 3.9 mmol/L (3.5-5.1); Sodium 132 mmol/L (137-145); Total Bilirubin 0.7 mg/dL (0.2-1.3); Total Protein 6.2 g/dL (6.3-8.2)
--- NOTE | 2017-11-14 14:31 | XR ---
EXAMINATION TYPE: XR chest 2V DATE OF EXAM: 11/14/2017 COMPARISON: June 29, 2017 HISTORY: Shortness of breath, abdominal pain. TECHNIQUE: Frontal and lateral views of the chest are obtained. FINDINGS: Nodular opacity at the left lung base is again noted which has been previously identified and appears relatively stable when compared to previous study from January 26, 2011. No pneumothorax pl eural effusion or airspace disease is identified. The cardiac silhouette size is within normal limits . No definite free intraperitoneal air is seen. The osseous structures are intact. IMPRESSION: No acute cardiopulmonary process.
--- NOTE | 2017-11-14 14:36 | XR ---
EXAMINATION TYPE: XR KUB DATE OF EXAM: 11/14/2017 2:23 PM CLINICAL HISTORY: Abdominal pain TECHNIQUE: 2 upright views the abdomen were obtained. COMPARISON: CT of the abdomen obtained on November 10.. FINDINGS: Surgical clips are identified in the gallbladder fossa. There is opacified colon from prior CT examination. A screw is seen at the level of L4-5 interspace. There is no evidence of a bowel obs truction or free intraperitoneal air. There is a lucency in the peritoneal fat planes bilaterally which is felt to be due to patient's meredith gerson as these correlate with peritoneal fat on the recent CT scan. IMPRESSION: No significant findings.
[2017-11-14 15:29] VITALS: BP 118/65; PULSE 60; RESP 16; TEMP 97.3
== END 2017-11-14 15:40 | disposition home or self-care (01) ==
LOC: EC 12:44
DX: R11.2 Nausea with vomiting, unspecified (principal); R10.13 Epigastric pain; E07.9 Disorder of thyroid, unspecified; Z86.14 Personal history of Methicillin resistant Staphylococcus aureus infection; Z90.49 Acquired absence of other specified parts of digestive tract; Z98.890 Other specified postprocedural states; Z87.19 Personal history of other diseases of the digestive system; Z91.09 Other allergy status, other than to drugs and biological substances; Z88.1 Allergy status to other antibiotic agents; Z88.5 Allergy status to narcotic agent; Z88.8 Allergy status to other drugs, medicaments and biological substances; Z79.899 Other long term (current) drug therapy
CPT/HCPCS: 99284; 96374; 96375; 96361; 36415; 80053; 82150; 83605; 83690; 84484; 85025; 81003; 71046; 74018; J2765

== ENCOUNTER → 2017-12-22 | Outpatient (CLI) | payer MEDICARE, OTHER ==
--- NOTE | 2017-12-23 13:00 | MM ---
Reason for exam: screening (asymptomatic). Last mammogram was performed 1 year and 1 month ago. History: Patient is postmenopausal. Family history of breast cancer in maternal cousin at age 38. Took estrogen for 1 year beginning at age 54. Physical Findings: A clinical breast exam by your physician is recommended on an annual basis and results should be correlated with mammographic findings. MG 3D Screening Mammo W/Cad Bilateral CC and MLO view(s) were taken. Prior study comparison: November 21, 2016, bilateral MG 3d screening mammo w/cad. November 20, 2015, bilateral MG screening mammo w CAD. The breast tissue is heterogeneously dense. This may lower the sensitivity of mammography. Finding: There are typically benign round calcifications in both breasts. There is a chronic nodularity in the left breast. There is no discrete abnormality. ASSESSMENT: Benign, BI-RAD 2 RECOMMENDATION: Routine screening mammogram of both breasts in 1 year.
== END | disposition home or self-care (01) ==
LOC: RADMAMWWP 09:35
PROVIDERS: ATTEND Family Medicine
DX: Z12.31 Encounter for screening mammogram for malignant neoplasm of breast (principal)
CPT/HCPCS: 77063; 77067

== ENCOUNTER 2018-01-26 08:51 | Emergency (ER) | payer MEDICARE, OTHER ==
[2018-01-26 08:56] VITALS: TEMP 97.6
[2018-01-26] MEDS ORDERED: traMADol 50 MG TAB PO STA (09:07)
--- NOTE | 2018-01-26 09:35 | XR ---
EXAMINATION TYPE: XR Hip LT and AP Pelvis DATE OF EXAM: 01/26/2018 COMPARISON: NONE HISTORY: Fall injury several weeks ago with persistent pelvic and left hip pain. TECHNIQUE: A single AP view of the pelvis is obtained. Two views of the left hip are obtained. FINDINGS: Osseous structures are demineralized. There is no acute fracture/dislocation evident in th e pelvis. There is mild to moderate axial joint space loss and right hip. Left hip joint is maintain ed. Sacroiliac joints are intact. There is well-defined deformity superior medial left iliac bone lik rickie from prior bone grafting. There are prominent bony projections laterally from the iliac bones pos sible osteochondromas as they are broad-based. Scattered pelvic phleboliths are seen. Surgical suture s overlie the left lower sacrum. Fixating screw right L5 level is noted. Pubic symphysis is intact. Two views of left hip show no acute fracture or dislocation. No focal lytic or sclerotic lesion seen in the proximal left femur. The overlying soft tissue is unremarkable. IMPRESSION: There is no acute fracture or dislocation in the pelvis or left hip.
--- NOTE | 2018-01-26 09:56 | US ---
EXAMINATION TYPE: US venous doppler duplex LE LT DATE OF EXAM: 01/26/2018 9:44 AM COMPARISON: NONE CLINICAL HISTORY: Pain. left thigh pain SIDE PERFORMED: Left TECHNIQUE: The lower extremity deep venous system is examined utilizing real time linear array sonog rogelio with graded compression, doppler sonography and color-flow sonography. VESSELS IMAGED: External Iliac Vein (EIV) Common Femoral Vein Deep Femoral Vein Greater Saphenous Vein * Femoral Vein Popliteal Vein Proximal Calf Veins (* superficial vessels) Nodes noted left groin. Left Leg: Negative for DVT IMPRESSION: 1. No diagnostic evidence of DVT.
--- NOTE | 2018-01-26 09:57 | ED ---
Lower Extremity Injury HPI - General Chief Complaint: Extremity Injury, Lower Stated Complaint: LEFT LEG AND SIDE PAIN Time Seen by Provider: 01/26/18 08:58 Source: patient, RN notes reviewed Mode of arrival: wheelchair Limitations: no limitations - History of Present Illness Initial Comments: This is a 72-year-old female presents emergency Department with chief complaint of left leg and left hip pain. Patient states his pain has been present for 1 week states that she fell approximately a week and half to 2 weeks ago. She did admit that she fell on her left hip region and was mechanical fall. Patient denies any abdominal pain, back pain. She states she feels a deep into her left hip and there is some pain that relates on her leg. Patient states that she had not seen her primary care physician for this she did call office in which he advised to come emergency department. Patient's had no prior DVTs. Denies any discoloration to her left leg. Patient denies any paresthesias or saddle anesthesias. Patient states she takes Aleve at home for pain which has not been helping much. - Related Data Home Medications Medication Instructions Recorded Confirmed Levothyroxine Sodium [Synthroid] 75 mcg PO DAILY 02/10/14 11/14/17 Nitroglycerin Sl Tabs [Nitrostat] 0.4 mg SUBLINGUAL Q5M PRN 02/10/14 11/14/17 Cholecalciferol [Vitamin D3] 2,000 unit PO DAILY 06/13/15 11/14/17 Baclofen [Lioresal] 10 mg PO TID PRN 08/03/15 11/14/17 Citalopram Hydrobromide [CeleXA] 20 mg PO DAILY 10/21/16 11/14/17 Cyclobenzaprine [Flexeril] 10 mg PO HS 10/21/16 11/14/17 [place]-3 Fatty Acids/Fish Oil [Fish 1 cap PO DAILY 10/21/16 11/14/17 Oil 1,000 mg Softgel] Amoxic-Pot Clav 875-125Mg 1 tab PO Q12HR 11/14/17 11/14/17 [Augmentin 875-125] Clindamycin HCl 300 mg PO Q12HR 11/14/17 11/14/17 [place] Fluoride 1mg 1 tab PO DAILY 11/14/17 11/14/17 Magnesium Citrate 125 mg PO DAILY 11/14/17 11/14/17 Oxybutynin Chloride [Ditropan XL] 10 mg PO DAILY 11/14/17 11/14/17 Previous Rx's Medication Instructions Recorded Ondansetron Odt [Zofran Odt] 4 mg PO Q8HR PRN #20 tab 11/14/17 traMADol HCl [Ultram] 50 mg PO Q6H PRN #12 tab 01/26/18 Allergies Allergy/AdvReac Type Severity Reaction Status Date / Time cat pelt standardized Allergy Unknown Verified 01/26/18 08:56 allergenic ex clindamycin Allergy Rash/Hives Verified 01/26/18 08:56 atorvastatin calcium AdvReac LEG CRAMPS Verified 01/26/18 08:56 [From Lipitor] morphine AdvReac Nausea & Verified 01/26/18 08:56 Vomiting niacin AdvReac LEG CRAMPS Verified 01/26/18 08:56 Review of Systems ROS Statement: Those systems with pertinent positive or pertinent negative responses have been documented in the HPI. ROS Other: All systems not noted in ROS Statement are negative. Past Medical History Past Medical History: Chest Pain / Angina, GERD/Reflux, Hyperlipidemia, Hypertension, Osteoarthritis (OA), Skin Disorder, Thyroid Disorder Additional Past Medical History / Comment(s): Hx. pancreatitis with pancreatic cysts-dr. williamson, psoriasis, changes in bowel habits, having dysphagia w/ solids, estimate angina, hypertension, hyperlipidemia, vitamin D deficiency, degenerative disc disease of the lumbar spine and cervical spine status post multiple laminectomies. History of Any Multi-Drug Resistant Organisms: MRSA Date of last positivie culture/infection: 2013 MDRO Source:: spider bite on leg Past Surgical History: Adenoidectomy, Back Surgery, Bowel Resection, Cholecystectomy, Hysterectomy, Orthopedic Surgery, Tonsillectomy Additional Past Surgical History / Comment(s): Anterior cervical discectomy with fusion , lumbar fusion 3, R hip surgery, left 1st rib removal, hiatal hernia surg., recent EGD/colonoscopy, hysterectomy, cholecystectomy, lateral cataract surgery with lens implant. Past Anesthesia/Blood Transfusion Reactions: No Reported Reaction Past Psychological History: No Psychological Hx Reported Smoking Status: Never smoker Past Alcohol Use History: None Reported Past Drug Use History: None Reported - Past Family History Father History Unknown: Yes Family Medical History: Coronary Artery Disease (CAD) Additional Family Medical History / Comment(s): aortic aneurysm at 72 Mother Family Medical History: CVA/TIA Brother(s) Family Medical History: No Reported History Sister(s) Family Medical History: Vascular Disorder Son(s) Family Medical History: No Reported History Daughter(s) Family Medical History: Unable to Obtain General Exam Limitations: no limitations General appearance: alert, in no apparent distress Head exam: Present: atraumatic, normocephalic, normal inspection Respiratory exam: Present: normal lung sounds bilaterally. Absent: respiratory distress, wheezes, rales, rhonchi, stridor Cardiovascular Exam: Present: regular rate, normal rhythm, normal heart sounds. Absent: systolic murmur, diastolic murmur, rubs, gallop, clicks GI/Abdominal exam: Present: soft, normal bowel sounds. Absent: distended, tenderness, guarding, rebound, rigid Extremities exam: Present: other (Tenderness palpation of the left hip, left thigh region the leg is neurovascular intact with equal pedal pulses and cap refill less than 2 seconds there is no calf tenderness there is no discrepancy in color or temperature. Patient has pain with range of motion the left hip passive and active) Back exam: Present: full ROM. Absent: tenderness, paraspinal tenderness, vertebral tenderness Neurological exam: Present: reflexes normal. Absent: motor sensory deficit Skin exam: Present: warm, dry, intact, normal color. Absent: rash Course Vital Signs 01/26/18 01/26/18 08:52 10:07 Temperature 97.6 F Pulse Rate 64 61 Respiratory 18 20 Rate Blood Pressure 139/65 130/63 O2 Sat by Pulse 97 99 Oximetry Medical Decision Making - Medical Decision Making 72-year-old female presented for left hip and groin pain. Patient's symptoms present for over a week. She did have a mechanical fall. Patient had ultrasound, x-ray and CT. There is no evidence of DVT CT does not reveal any acute fracture. Patient leg is neurovascular intact. Patient does feel some improvement of the tramadol here. This will follow-up with on-call orthopedics Dr. Juarez for left hip pain. Patient agrees this plan. All questions were answered this time. Disposition Clinical Impression: Groin strain, Left hip pain Disposition: HOME SELF-CARE Condition: Stable Instructions: Hip Pain (ED) Additional Instructions: Follow-up with your primary care physician and orthopedics.Please return to the Emergency Department if symptoms worsen or any other concerns. Prescriptions: traMADol HCl [Ultram] 50 mg PO Q6H PRN #12 tab PRN Reason: Pain Is patient prescribed a controlled substance at d/c from ED?: Yes If prescribed controlled substance>3 days was MAPS reviewed?: No When asked, does pt state using other controlled substances?: No Referrals: Roxanna Lozano MD [Primary Care Provider] - 1-2 days Isiah Juarez MD [Medical Doctor] - 1-2 days Time of Disposition: 10:48
--- NOTE | 2018-01-26 10:38 | CT ---
EXAMINATION TYPE: CT hip LT wo con DATE OF EXAM: 01/26/2018 COMPARISON: Pelvic and left hip x-ray from earlier today. CT abdomen and pelvis March 19, 2017 HISTORY: Fall several weeks ago, Lt hip pain CT DLP: 403.2 mGycm Automated exposure control for dose reduction was used. FINDINGS: Osseous structures are demineralized. There is no acute fracture or dislocation in the visualized pel vis or in the left hip. There is asymmetric moderate to severe posterior joint space loss redemonstra radha. No suspicious soft tissue ill-defined fluid or fluid collection is present. Muscle bulk is prese rved. No suspicious adenopathy is identified. There is partial visualization of sutures at sigmoid rectal colon level axial image 6 redemonstrated. Uterus is surgically absent. A few scattered pelvic phleboliths are seen. IMPRESSION: NO ACUTE FRACTURE OR DISLOCATION IN LEFT HIP IS IDENTIFIED. NO SIGNIFICANT SOFT TISSUE HEMATOMA NOTED .
[2018-01-26 10:54] VITALS: BP 134/62; PULSE 56; RESP 18
== END 2018-01-26 10:57 | disposition home or self-care (01) ==
LOC: EC 08:51
DX: S39.011A Strain of muscle, fascia and tendon of abdomen, initial encounter (principal); M25.552 Pain in left hip; M79.605 Pain in left leg; E07.9 Disorder of thyroid, unspecified; Z79.899 Other long term (current) drug therapy; Z88.1 Allergy status to other antibiotic agents; Z88.5 Allergy status to narcotic agent; Z88.8 Allergy status to other drugs, medicaments and biological substances; Z91.048 Other nonmedicinal substance allergy status; Z86.14 Personal history of Methicillin resistant Staphylococcus aureus infection; Z90.49 Acquired absence of other specified parts of digestive tract; W19.XXXA Unspecified fall, initial encounter
CPT/HCPCS: 73502; 99284

== ENCOUNTER 2018-01-29 09:42 | Inpatient (IN) | payer MEDICARE, OTHER ==
[2018-01-29] MEDS ORDERED: HYDROcodone/APAP 7.5-325MG 1 EACH TAB PO ONE (10:32)
[2018-01-29] MEDS ORDERED: METHOCARBAMOL 500 MG TAB PO STA (10:34)
--- NOTE | 2018-01-29 10:34 | ED ---
Lower Extremity Injury HPI - General Chief Complaint: Extremity Injury, Lower Stated Complaint: fall, lt leg pain Time Seen by Provider: 01/29/18 10:12 Source: patient Mode of arrival: wheelchair Limitations: no limitations - History of Present Illness Initial Comments: Patient is a 72-year-old female presenting for left hip pain. She states that she was seen her on January 26 and had multiple images completed including computed tomography scan as well as x-ray. She has seen her primary care doctor as well as an orthopedics who recommended rehab. She says that yesterday , she fell proximally 7 times but denies any kind of head injury. She states that she also did not injure her hip or knee but states that there is a fairly constant sharp pain radiating from the left hip into her left thigh. When she falls, and this is because the hip gives out and she falls forward. Again, there is no loss of consciousness and she denies any other trauma including back pain or chest pain or abdominal pain. - Related Data Home Medications Medication Instructions Recorded Confirmed Levothyroxine Sodium [Synthroid] 75 mcg PO DAILY 02/10/14 01/29/18 Nitroglycerin Sl Tabs [Nitrostat] 0.4 mg SUBLINGUAL Q5M PRN 02/10/14 01/29/18 Cholecalciferol [Vitamin D3] 2,000 unit PO DAILY 06/13/15 01/29/18 Citalopram Hydrobromide [CeleXA] 20 mg PO DAILY 10/21/16 01/29/18 [place]-3 Fatty Acids/Fish Oil [Fish 1 cap PO DAILY 10/21/16 01/29/18 Oil 1,000 mg Softgel] Magnesium Citrate 125 mg PO DAILY 11/14/17 01/29/18 Oxybutynin Chloride [Ditropan XL] 10 mg PO DAILY 11/14/17 01/29/18 Isosorbide Mononitrate ER [Imdur] 30 mg PO DAILY 01/29/18 01/29/18 Methocarbamol [Robaxin] 750 mg PO BID PRN 01/29/18 01/29/18 Naproxen [Naprosyn] 500 mg PO BID 01/29/18 01/29/18 Omeprazole [PriLOSEC] 40 mg PO DAILY 01/29/18 01/29/18 Sodium Fluoride [Fluoride] 1 mg PO DAILY 01/29/18 01/29/18 methylPREDNISolone Dose Pack See Taper PO DIRECTED 01/29/18 01/29/18 [Medrol Dose Pack] Previous Rx's Medication Instructions Recorded traMADol HCl [Ultram] 50 mg PO Q6H PRN #12 tab 01/26/18 Allergies Allergy/AdvReac Type Severity Reaction Status Date / Time cat pelt standardized Allergy Unknown Verified 01/29/18 11:00 allergenic ex clindamycin Allergy Rash/Hives Verified 01/29/18 11:00 atorvastatin calcium AdvReac LEG CRAMPS Verified 01/29/18 11:00 [From Lipitor] morphine AdvReac Nausea & Verified 01/29/18 11:00 Vomiting niacin AdvReac LEG CRAMPS Verified 01/29/18 11:00 Review of Systems ROS Statement: Those systems with pertinent positive or pertinent negative responses have been documented in the HPI. Constitutional: Negative for chills, fatigue and fever. HENT: Negative for congestion. Respiratory: Negative for chest tightness, shortness of breath and wheezing. Cardiovascular: Negative for chest pain and palpitations. Gastrointestinal: Negative for abdominal pain. Negative for abdominal distention , diarrhea, nausea and vomiting. Genitourinary: Negative for dysuria. Musculoskeletal: Negative for back pain, neck pain and neck stiffness. Positive for left hip pain Skin: Negative for color change. Neurological: Negative for dizziness, speech difficulty, weakness and light- headedness. Psychiatric/Behavioral: Negative for agitation and confusion. The patient is not nervous/anxious. ROS Other: All systems not noted in ROS Statement are negative. Past Medical History Past Medical History: Chest Pain / Angina, GERD/Reflux, Hyperlipidemia, Hypertension, Osteoarthritis (OA), Skin Disorder, Thyroid Disorder Additional Past Medical History / Comment(s): Hx. pancreatitis with pancreatic cysts-dr. williamson, psoriasis, changes in bowel habits, having dysphagia w/ solids, estimate angina, hypertension, hyperlipidemia, vitamin D deficiency, degenerative disc disease of the lumbar spine and cervical spine status post multiple laminectomies. History of Any Multi-Drug Resistant Organisms: MRSA Date of last positivie culture/infection: 2013 MDRO Source:: spider bite on leg Past Surgical History: Adenoidectomy, Back Surgery, Bowel Resection, Cholecystectomy, Hysterectomy, Orthopedic Surgery, Tonsillectomy Additional Past Surgical History / Comment(s): Anterior cervical discectomy with fusion , lumbar fusion 3, R hip surgery, left 1st rib removal, hiatal hernia surg., recent EGD/colonoscopy, hysterectomy, cholecystectomy, lateral cataract surgery with lens implant. Past Anesthesia/Blood Transfusion Reactions: No Reported Reaction Past Psychological History: No Psychological Hx Reported Smoking Status: Never smoker Past Alcohol Use History: None Reported Past Drug Use History: None Reported - Past Family History Father History Unknown: Yes Family Medical History: Coronary Artery Disease (CAD) Additional Family Medical History / Comment(s): aortic aneurysm at 72 Mother Family Medical History: CVA/TIA Brother(s) Family Medical History: No Reported History Sister(s) Family Medical History: Vascular Disorder Son(s) Family Medical History: No Reported History Daughter(s) Family Medical History: Unable to Obtain General Exam - General Exam Comments Initial Comments: Physical Exam Constitutional: Pt is oriented to person, place, and time. Pt appears well- developed and well-nourished. No distress. HENT: Head: Normocephalic and atraumatic. Eyes: EOM are normal. Neck: Normal range of motion. Neck supple. Cardiovascular: Normal rate, regular rhythm, S1 normal, S2 normal and normal heart sounds. Exam reveals no gallop and no friction rub. No murmur heard. Pulmonary/Chest: Effort normal and breath sounds normal. No tachypnea and no bradypnea. No respiratory distress. No wheezes or rales noted. Abdominal: Soft. Bowel sounds are normal. Pt exhibits no shifting dullness, no distension, no pulsatile liver, no fluid wave, no abdominal bruit and no ascites. There is no tenderness. There is no rigidity, no rebound, no guarding, no tenderness at McBurney's point and negative Gaitan's sign. Musculoskeletal: Normal range of motion with significant pain. No point tenderness to the left hip. Muscle strength 5 out of 5 of bilateral lower extremities. No tenderness to C-spine, L-spine, T-spine. Neurological: Pt is alert and oriented to person, place, and time. No cranial nerve deficit. Skin: Skin is warm and dry. No rash noted. Pt is not diaphoretic. No erythema. No pallor. Psychiatric: Pt has a normal mood and affect. Pt behavior is normal. Thought content normal. Limitations: no limitations Course Vital Signs 01/29/18 01/29/18 09:59 12:44 Temperature 98.3 F 97.5 F L Pulse Rate 75 62 Respiratory 16 18 Rate Blood Pressure 147/72 166/75 O2 Sat by Pulse 98 96 Oximetry Medical Decision Making - Medical Decision Making Etiology of the pain is unclear but this could be possibly related to transient synovitis. Repeat x-ray showed no evidence of acute pathology. Case is discussed with primary care physician and it was agreed upon that the patient likely needed some sort of physical therapy. Because the patient is a significant fall risk, it is felt that it is unsafe for the patient to be sent home as she does not have good care. Therefore the patient will be placed in observation for possible placement to an outpatient or inpatient rehab. Explained all labs and diagnostic test results and that we will admit patient to hospital. Pt is agreeable to plan and case has been discussed with Dr. Acosta and they agree to accept the pt. Disposition Clinical Impression: Hip pain, left, Intractable pain Disposition: ADMITTED IP TO THIS [facility] Condition: Fair Referrals: Roxanna Lozano MD [Primary Care Provider] - 1-2 days Decision to Admit Reason: Admit from EC Decision Date: 01/29/18 Decision Time: 13:34
--- NOTE | 2018-01-29 11:57 | XR ---
EXAMINATION TYPE: XR Hip Complete LT, XR femur LT DATE OF EXAM: 01/29/2018 CLINICAL HISTORY: Repeated falls with pain. TECHNIQUE: AP and frogleg views of the left femur and hip are obtained. COMPARISON: CT left hip and pelvic with left hip x-ray from 3 days ago. FINDINGS: There is no acute fracture/dislocation evident in the left hip. The joint space in the le ft hip appears within normal limits. Osseous structures are demineralized. Left-sided pelvic phleboli ths and surgical sutures and pelvis are redemonstrated. Images of left hip show no acute fracture or dislocation mid to distal aspects. Left knee joint is fe lt within normal limits. Overlying soft tissue is unremarkable. IMPRESSION: There is no acute fracture or dislocation in the left femur or hip.
[2018-01-29] MEDS ORDERED: MORPHINE SULFATE 4 MG/0.8 ML SYRINGE (INJ) IVP STA (13:29)
[2018-01-29] MEDS ORDERED: NALOXONE 0.4 MG/ML 1 ML VIAL IV PRN (13:35)
[2018-01-29] MEDS ORDERED: ONDANSETRON 4 MG/2 ML VIAL IVP STA (14:06)
[2018-01-29] MEDS ORDERED: traMADol 50 MG TAB PO PRN (17:48)
[2018-01-29] MEDS ORDERED: METHOCARBAMOL 750 MG TAB PO PRN (17:48)
[2018-01-29] MEDS ORDERED: NITROGLYCERIN SL TABS 0.4 MG TAB SUBLINGUAL PRN (17:48)
--- NOTE | 2018-01-29 22:23 | HP ---
HISTORY AND PHYSICAL CHIEF COMPLAINTS: Fall and left leg pain. HISTORY OF PRESENT ILLNESS: This 72-year-old woman with a past medical history of multiple medical problems, including history of GERD, hypertension, hyperlipidemia, history of MRSA, history of adenoidectomy, being followed by Dr. Lozano in the outpatient setting, recently had a fall, and subsequently the patient was evaluated. Multiple images did not show any acute abnormality. At that time rehab was recommended. The patient fell about 7 times. The patient is still complaining of left hip pain and was admitted for further evaluation. The patient also reports right knee pain and right knee giving out , also. There is no history of any fever, rigor or chills. No history of headache, loss of consciousness, seizures. PAST MEDICAL HISTORY: 1. GERD. 2. Hypertension. 3. Hyperlipidemia. 4. History of DJD. HOME MEDICATIONS: 1. Ultram 50 mg q.6 p.r.n. 2. Medrol Dosepak. 3. Fluoride 1 p.o. daily. 4. Ditropan XL 10 mg p.o. daily. 5. Prilosec 40 mg p.o. daily. 6. [place]-3 fatty acids 1 p.o. daily. 7. Nitrostat 0.4 sublingually p.r.n. 8. Naprosyn 500 mg b.i.d. 9. Robaxin 750 p.o. b.i.d. p.r.n. 10.Magnesium citrate 120 mg p.o. daily. 11.Synthroid 70 mcg p.o. daily. 12.Imdur 30 mg p.o. daily. 13.Celexa 20 mg daily. 14.Vitamin D3 2000 p.o. daily. ALLERGIES: 1. CAT PELT DANDER. 2. CLINDAMYCIN. 3. ATORVASTATIN. 4. MORPHINE. 5. NIACIN. FAMILY HISTORY: History of coronary artery disease. History of aortic aneurysm. SOCIAL HISTORY: No history of smoking. No history of alcohol. REVIEW OF SYSTEMS: ENT: No diminished hearing. No diminished vision. CARDIOVASCULAR SYSTEM: No angina, palpitations. RESPIRATORY SYSTEM: As mentioned earlier. GI: As mentioned earlier. : No dysuria or retention. NERVOUS SYSTEM: No numbness, weakness. ALLERGY/IMMUNOLOGY: No asthma, hayfever. MUSCULOSKELETAL: As mentioned earlier. HEMATOLOGY/ONCOLOGY: No history of anemia. ENDOCRINE: Hypothyroidism. CONSTITUTIONAL: As mentioned earlier. DERMATOLOGY: Negative. RHEUMATOLOGY: Negative. PSYCHIATRY: As mentioned earlier. PHYSICAL EXAMINATION: Alert, oriented x3. Pulse 56, blood pressure 132/58, respiration 16, temperature 97.6, pulse ox 94% on room air. HEENT: Conjunctivae normal. Oral mucosa moist. NECK: No jugular venous distention. No carotid bruit. No lymph node enlargement. CARDIOVASCULAR SYSTEM: S1, S2 muffled. RESPIRATORY SYSTEM: Breath sounds diminished at the bases. No rhonchi. No crackles. ABDOMEN: Soft, non-tender. No mass palpable. LEGS: left knee joint is painful. Right knee swelling also present. NERVOUS SYSTEM: No focal deficit. LABS: Current labs are not available. ASSESSMENT: 1. Left hip pain and possible degenerative joint disease. 2. Right knee pain. 3. Gait dysfunction. 4. History of gastroesophageal reflux disease. 5. Hypertension. 6. Hyperlipidemia. 7. History of pancreatitis with a pancreatic cyst. 8. History of adenoidectomy. 9. History of back surgery. RECOMMENDATIONS AND DISCUSSION: In this 72-year-old woman who presented with multiple complex medical issues, at this time I recommend to continue current medications, continue symptomatic treatment. Otherwise at this time resume the home medications. PT/OT evaluation. I would also recommend orthopedic evaluation. Continue to monitor. Possibility of rehab also will be explored at this time. DVT prophylaxis. Proton pump inhibitors. Guarded prognosis because of multiple complex medical issues. Further recommendations to follow. Ultram will be initiated. MMODL / IJN: [id number] / MTDD
[2018-01-29] MEDS: HEPARIN SODIUM,PORCINE 5,000 UNIT/ML 1 ML VIAL SQ SCH (22:39)
[2018-01-29] MEDS: NAPROXEN 250 MG TAB PO SCH (22:39)
[2018-01-29] MEDS: traMADol 50 MG TAB PO PRN (22:40)
[2018-01-30] MEDS: LEVOTHYROXINE 75 MCG TAB PO SCH (05:37)
[2018-01-30] MEDS: traMADol 50 MG TAB PO PRN ×3 (05:37→19:44)
[2018-01-30 06:05] LABS: Appearance,Urine Clear (Clear); Bilirubin,Urine Negative (Negative); Blood,Urine Negative (Negative); Color,Urine Yellow; Glucose,Urine (UA) Negative (Negative); Hyaline Casts,Urine 3 /lpf (0-2); Ketones,Urine Negative (Negative); Leukocyte Esterase,Urine Trace (Negative); Mucus,Urine Occasional /hpf; Nitrite,Urine Negative (Negative); PH, Urine 5.5 (5.0-8.0); Protein,Urine Negative (Negative); RBC,Urine 2 /hpf (0-5); Specific Gravity,Urine 1.018 (1.001-1.035); Squamous Epithelial Cell,Urine 1 /hpf (0-4); WBC,Urine 5 /hpf (0-5)
[2018-01-30] MEDS: PANTOPRAZOLE 40 MG TABLET PO SCH (07:27)
[2018-01-30 07:49] LABS: Basophils % (A) 1 %; Eosinophils # (A) 0.1 k/uL (0-0.7); Eosinophils % (A) 1 %; HCT 37.4 % (34.0-46.0); HGB 12.1 gm/dL (11.4-16.0); Lymphocytes # (A) 2.1 k/uL (1.0-4.8); Lymphocytes % (A) 32 %; MCH 29.1 pg (25.0-35.0); MCHC 32.5 g/dL (31.0-37.0); MCV 89.5 fL (80.0-100.0); Mean Platelet Volume 7.1; Monocytes # (A) 0.3 k/uL (0-1.0); Monocytes % (A) 5 %; Neutrophils # (A) 3.9 k/uL (1.3-7.7); Neutrophils % (A) 60 %; Platelet Count 270 k/uL (150-450); RBC 4.18 m/uL (3.80-5.40); RDW 13.1 % (11.5-15.5); WBC 6.5 k/uL (3.8-10.6)
[2018-01-30 08:12] LABS: Potassium 4.3 mmol/L (3.5-5.1)
[2018-01-30] MEDS: HEPARIN SODIUM,PORCINE 5,000 UNIT/ML 1 ML VIAL SQ SCH ×2 (08:13→22:14)
[2018-01-30] MEDS: ISOSORBIDE MONONITRATE ER 30 MG TAB.ER.24H PO SCH (08:13)
[2018-01-30] MEDS: OXYBUTYNIN 10 MG TAB.ER.24 PO SCH (08:14)
[2018-01-30] MEDS: NAPROXEN 250 MG TAB PO SCH ×2 (08:14→22:13)
[2018-01-30] MEDS ORDERED: SODIUM FLUORIDE PO SCH (09:00)
[2018-01-30] MEDS ORDERED: NON-FORMULARY DRUG (Omega-3 Fatty Acids/Fish Oil [Fish Oil 1,000 Mg Softgel] 1 CAP) PO SCH (09:00)
[2018-01-30] MEDS ORDERED: MAGNESIUM CITRATE 125 MG PO SCH (09:00)
[2018-01-30] MEDS: CHOLECALCIFEROL 1,000 UNIT TAB PO SCH (09:13)
[2018-01-30] MEDS: CITALOPRAM HYDROBROMIDE 20 MG TAB PO SCH (09:13)
--- NOTE | 2018-01-30 11:12 | CT ---
EXAMINATION TYPE: CT lumbar spine wo con DATE OF EXAM: 01/30/2018 10:58 AM COMPARISON: NONE HISTORY: Lumbar pain, radiculopathy. S/P Fusion CT DLP: 587.20 mGycm Automated exposure control for dose reduction was used. Unenhanced CT of the lumbar spine was performed. Bone and soft tissue window settings are submitted as well as coronal and sagittal reconstructions. FINDINGS: There has been a previous sigmoid resection. There is mild atheromatous calcification of th e visualized arterial tree. The gallbladder is been removed. There is been a previous bony fusion at L4, L5 and S1. A metallic screw is present on the right at L5 -S1 fusing the facet. Vertebral body height and alignment otherwise maintained. No fractures are seen . T12-L1: Normal disc space height. No disc herniation protrusion or central stenosis. No facet joint arthropathy. No evidence for foraminal encroachment. L1-2: Disc space loss. No disc herniation protrusion or central stenosis. No facet joint arthropath y. No evidence for foraminal encroachment. L2-3: The intervertebral foramina are well maintained. There is a diffuse disc displacement. This hyp ertrophic change in the facets. There is mild central canal stenosis. L3-4: There is a diffuse disc displacement. Intervertebral foramina appear well maintained. This hype rtrophic change in the facets. L4-5: This level is fused. The intervertebral foramina are reasonably well-maintained. There is no si gnificant compressive discopathy. The central canal is maintained. L5-S1: This level is fused. Intervertebral foramina appear well maintained. There is no significant c ompressive discopathy. There is no significant central canal stenosis. IMPRESSION: 1. POSTSURGICAL CHANGE. 2. DEGENERATIVE DISC DISEASE EXTENDING FROM L1-2 THROUGH L5-S1 3. VARYING DEGREES OF CENTRAL CANAL STENOSIS, MOST MARKED AT L2-3. 4. DIFFUSE FACET ARTHROPATHY.
--- NOTE | 2018-01-30 11:22 | XR ---
EXAMINATION TYPE: XR lumbar spine with bend/flex , 5 VIEWS DATE OF EXAM ORDERED: 01/30/2018 HISTORY: lumbar radiculopathy s/p fusion. COMPARISON: Previous study dated 05/27/2011. FINDINGS: The gallbladder has been removed. There is been a transection facet fusion on the right L5-S1. Vertebral body height is maintained. There is a mild retrograde listhesis of L1 on L2 and L2 on L3. T here is no abnormal motion of the spine in flexion or extension. There is degenerative disc space los s most marked at L1-2 and L2-3. IMPRESSION: 1. NO ACUTE OSSEOUS LESION. 2. DEGENERATIVE CHANGE. 3. POSTSURGICAL CHANGE.
--- NOTE | 2018-01-30 12:52 | P.PN ---
Subjective Progress Note Date: 01/30/18 Progress note being dictated for Dr. Lilly. Interval history: This a 72-year-old female admitted with left hip pain, left knee pain, multiple falls and multiple other medical issues. Patient reports her legs gave out , causing the falls-reports 9 falls. Orthopedics consult in place with recommendations pending. Evaluated by physical therapy with subacute rehab recommended at discharge. Denies chest pain, palpitations or increasing shortness of breath. Denies lightheadedness dizziness or focal deficits. Afebrile. Creatinine 1.06. Objective - Vital Signs Vital signs: Vital Signs Temp 98.5 F 01/30/18 07:32 Pulse 71 01/30/18 10:36 Resp 16 01/30/18 10:36 BP 154/83 01/30/18 07:32 Pulse Ox 95 01/30/18 07:32 Intake & Output 01/29/18 01/30/18 01/30/18 18:59 06:59 18:59 Intake Total 400 400 Balance 400 400 Weight 71.5 kg Intake: Oral 400 400 Other: Voiding Method Toilet Toilet Toilet # Voids 1 - Exam PHYSICAL EXAM: VITAL SIGNS: As above GENERAL: Sitting up in bed, no acute distress HEENT: Conjunctivae normal. eyes normal. Oral mucosa moist NECK: No JVD. No thyroid enlargement. No LNs CARDIOVASCULAR: S1, S2 muffled. No murmur RESPIRATION: Breath sounds diminished in the bases. No rhonchi or crackles. No bronchial breathing. ABDOMEN: Soft, nontender . No guarding. no masses palpable.Bowel sounds heard. LEGS: Left knee tender, right knee edema PSYCHIATRY: Alert and oriented -3, mood and affect normal. NERVOUS SYSTEM: Cranial N 2-12 grossly normal. Moves all 4 limbs. Diffuse weakness No focal deficits. Skin: no ulcer no rash Lymphatic system. No LN neck axilla or groin. - Labs CBC & Chem 7: 01/30/18 06:51 01/30/18 06:51 Labs: Abnormal Lab Results - Last 24 Hours (Table) 01/30/18 01/30/18 Range/Units 05:45 06:51 BUN 23 H (7-17) mg/dL Creatinine 1.06 H (0.52-1.04) mg/dL Ur Leukocyte Esterase Trace H (Negative) Hyaline Casts 3 H (0-2) /lpf Urine Mucus Occasional H (None) /hpf Assessment and Plan Assessment: 1. Left hip pain and bilateral knee pain, possible degenerative joint disease 2. Gait dysfunction 3. Gastroesophageal reflux disease 4. History of back surgery Plan: Continue on current medication regime ,monitoring and symptomatic treatment. PT/OT. Orthopedics recommendations pending. Close monitoring of renal function with repeat labs ordered for a.m. Discharge planning in progress for subacute rehab. The impression and plan of care has been dictated as directed. : I performed a history and examination of this patient, discussed the same with the dictator. I agree with the dictator's note ,documented as a scribe. Any additional findings or plans will be noted.
[2018-01-31] MEDS: traMADol 50 MG TAB PO PRN ×3 (05:51→18:07)
[2018-01-31] MEDS: LEVOTHYROXINE 75 MCG TAB PO SCH (05:51)
[2018-01-31 07:35] LABS: Basophils % (A) 1 %; Eosinophils # (A) 0.2 k/uL (0-0.7); Eosinophils % (A) 3 %; HCT 37.9 % (34.0-46.0); HGB 12.3 gm/dL (11.4-16.0); Lymphocytes # (A) 2.2 k/uL (1.0-4.8); Lymphocytes % (A) 37 %; MCH 29.3 pg (25.0-35.0); MCHC 32.4 g/dL (31.0-37.0); MCV 90.3 fL (80.0-100.0); Mean Platelet Volume 6.8; Monocytes # (A) 0.4 k/uL (0-1.0); Monocytes % (A) 6 %; Neutrophils # (A) 3.1 k/uL (1.3-7.7); Neutrophils % (A) 51 %; Platelet Count 272 k/uL (150-450); RBC 4.19 m/uL (3.80-5.40); RDW 12.9 % (11.5-15.5); WBC 6.1 k/uL (3.8-10.6)
[2018-01-31 07:59] LABS: Potassium 4.4 mmol/L (3.5-5.1)
[2018-01-31] MEDS: CHOLECALCIFEROL 1,000 UNIT TAB PO SCH (09:37)
[2018-01-31] MEDS: OXYBUTYNIN 10 MG TAB.ER.24 PO SCH (09:37)
[2018-01-31] MEDS: NAPROXEN 250 MG TAB PO SCH ×2 (09:37→21:22)
[2018-01-31] MEDS: PANTOPRAZOLE 40 MG TABLET PO SCH (09:37)
[2018-01-31] MEDS: CITALOPRAM HYDROBROMIDE 20 MG TAB PO SCH (09:37)
[2018-01-31] MEDS: ISOSORBIDE MONONITRATE ER 30 MG TAB.ER.24H PO SCH (09:37)
[2018-01-31] MEDS: HEPARIN SODIUM,PORCINE 5,000 UNIT/ML 1 ML VIAL SQ SCH ×2 (09:38→21:23)
--- NOTE | 2018-01-31 11:26 | P.CNOR ---
History of Present Illness - [facility] Consult date: 01/31/18 Consult reason: other (Left lower extremity pain and inability to ambulate) History of present illness: Patient's pleasant 72-year-old female who has been having severe pain and difficulty ambulating over the past week. She said this all started newly in the past 2 weeks where she was having increasing pain toward her left thigh. She denies any specific trauma or incident. She denies any fevers or chills. She says she did have multiple falls especially last week on where she says she fell 9 times and fell on her porch and had crawl back into the house and she was unable to get up. She presented to the hospital that point. She feels she continues to have pain at her left lower extremity mainly over her left anterior thigh and medial thigh. She has some symptoms toward her right thigh as well but not nearly as severe. She is able to get up on her own is in fear that she'll fall. She has history of possible issues in her spine. She had 3 surgeries in the 1970s with Dr. Clinton at her lumbar spine including fusion surgery. She's also had multiple surgeries on her cervical spine past. Review of Systems Denies any fevers or chills. Denies any night sweats. Multiple falls at home. She says that she was walking better a month ago but in the past 2 weeks has had more difficulty with walking and ambulation due to her left leg pain denies any specific trauma or injury. Past Medical History Past Medical History: Chest Pain / Angina, GERD/Reflux, Hyperlipidemia, Hypertension, Musculoskeletal Disorder (History of multiple surgeries and her lumbar and cervical spine in the ), Osteoarthritis (OA), Skin Disorder, Thyroid Disorder Additional Past Medical History / Comment(s): Hx. pancreatitis with pancreatic cysts-dr. williamson, psoriasis lt ankle, angina, vitamin D deficiency, degenerative disc disease of the lumbar spine and cervical spine status post multiple back/neck sx pt states unable to lift anything over 10# or stand for long periods of time..diverticulitis, bronchits,lt lung nodule dr watching.past uterin fibroids. falls, using walker when up History of Any Multi-Drug Resistant Organisms: MRSA Year Discovered:: 2013 in [place] [facility] MDRO Source:: spider bite on lt leg Past Surgical History: Adenoidectomy, Back Surgery, Bowel Resection, Cholecystectomy, Hysterectomy, Orthopedic Surgery, Tonsillectomy Additional Past Surgical History / Comment(s): Anterior cervical discectomy with fusion(toal 3 sx has wire in neck) , lumbar fusion 3-screws in back, R hip surgery, left 1st rib removal r/t thoracic outlet syndrome, hiatal hernia surg., recent EGD/colonoscopy, hysterectomy, cholecystectomy,bilateral cataract surgery with lens implant.lt elbow tendon release,sx on gums d/t infection, dental implant Past Anesthesia/Blood Transfusion Reactions: No Reported Reaction Additional Past Anesthesia/Blood Transfusion Reaction / Comm: blood transfusion in 1970-no reaction Smoking Status: Never smoker - Past Family History Father History Unknown: Yes Family Medical History: Coronary Artery Disease (CAD) Additional Family Medical History / Comment(s): aortic aneurysm at 72 Mother Family Medical History: CVA/TIA Brother(s) Family Medical History: No Reported History Sister(s) Family Medical History: Vascular Disorder Son(s) Family Medical History: No Reported History Daughter(s) Family Medical History: Unable to Obtain Medications and Allergies Home Medications Medication Instructions Recorded Confirmed Type Levothyroxine Sodium [Synthroid] 75 mcg PO DAILY 02/10/14 01/29/18 History Nitroglycerin Sl Tabs [Nitrostat] 0.4 mg SUBLINGUAL Q5M PRN 02/10/14 01/29/18 History Cholecalciferol [Vitamin D3] 2,000 unit PO DAILY 06/13/15 01/29/18 History Citalopram Hydrobromide [CeleXA] 20 mg PO DAILY 10/21/16 01/29/18 History [place]-3 Fatty Acids/Fish Oil [Fish 1 cap PO DAILY 10/21/16 01/29/18 History Oil 1,000 mg Softgel] Magnesium Citrate 125 mg PO DAILY 11/14/17 01/29/18 History Oxybutynin Chloride [Ditropan XL] 10 mg PO DAILY 11/14/17 01/29/18 History traMADol HCl [Ultram] 50 mg PO Q6H PRN #12 tab 01/26/18 01/29/18 Rx Isosorbide Mononitrate ER [Imdur] 30 mg PO DAILY 01/29/18 01/29/18 History Methocarbamol [Robaxin] 750 mg PO BID PRN 01/29/18 01/29/18 History Naproxen [Naprosyn] 500 mg PO BID 01/29/18 01/29/18 History Omeprazole [PriLOSEC] 40 mg PO DAILY 01/29/18 01/29/18 History Sodium Fluoride [Fluoride] 1 mg PO DAILY 01/29/18 01/29/18 History methylPREDNISolone Dose Pack See Taper PO DIRECTED 01/29/18 01/29/18 History [Medrol Dose Pack] Allergies Allergy/AdvReac Type Severity Reaction Status Date / Time cat pelt standardized Allergy Unknown Verified 01/29/18 11:00 allergenic ex clindamycin Allergy Rash/Hives Verified 01/29/18 11:00 atorvastatin calcium AdvReac LEG CRAMPS Verified 01/29/18 11:00 [From Lipitor] morphine AdvReac Nausea & Verified 01/29/18 11:00 Vomiting niacin AdvReac LEG CRAMPS Verified 01/29/18 11:00 Physical Examination Osteopathic Statement: *. No significant issues noted on an osteopathic structural exam other than those noted in the History and Physical/Consult. - L Spine: dermatomal strength & reflexes bilateral Strength: hip flexion: 4/5 (At her back she has well-healed midline incision and iliac crest incisions. There is no erythema there is no evidence of any infection in her back. At her leg she actually has good motion at her bilateral hips. She is able to lift her legs up off the bed independently. There is no pain with internal rotation her hips. She is good flexion and extension at her knees bilaterally. She has good dorsal flexion plantarflexion her ankles and toes. She has some weakness with hip flexion on the left about 4 out of 5 locally but is difficult to determine if this is due to pain or specific weakness. She does not have any hyperreflexia. Calves and thighs soft nontender.) Results - Labs Labs: Abnormal Lab Results - Last 24 Hours (Table) 01/31/18 Range/Units 06:50 BUN 27 H (7-17) mg/dL Creatinine 1.23 H (0.52-1.04) mg/dL H & H 01/30/18 01/31/18 Range/Units 06:51 06:50 Hgb 12.1 12.3 (11.4-16.0) gm/dL Hct 37.4 37.9 (34.0-46.0) % Result Diagrams: 01/31/18 06:50 01/31/18 06:50 - Diagnostic results CT Scan - lumbar: report reviewed, image reviewed (She had imaging of her left hip and femur which show well-maintained joint space at her left hip joint. There is no evidence of fracture at her left hip or femur. At her lumbar spine she's had obvious prior surgery with evidence of fusion L4 to S1. There is I screw at L5-S1 and significant bone mass L4 to S1. She is significant disc degeneration L2-3 and L3 4. She has some SI joint arthrosis as well. Her computed tomography scan shows consistency with the above findings of her x-ray as well as evidence of stenosis at L23 and possibly at L3 4. There is a partial lami laminectomy at L3 4. There is evidence disc protrusion at L1-2 and L2-3 and L3 4. There is evidence of stenosis at those levels.) Assessment and Plan Plan: 1. Left lower extremity pain with inability to ambulate and multiple falls The left lower extremity symptoms seem to stem significant weight from her lumbar spine. Her x-rays of her hip and femur appeared to be essentially negative for acute problem or fracture and she is able to move her left hip and knee quite well. Her thigh and calf are soft. She has significant history of issues with her lumbar spine and may have had irritation on her nerve root to cause her left lower extremity symptoms significant. She is not having severe pain at her back but does have evidence of prior issues at her lumbar spine with multiple surgeries and fusion from L4 to S1. She has significant stenosis particularly at L2-3 and L3 4 and the skin correlate with the pattern of the symptoms at her left lower extremity. I think that she could have improvement with Neurontin as ordered as well as oral steroid which orders well. I would like physical therapy to see her in regards to trying to have her mobilize and to determine her safety with her ambulation and increase her mobilization. At this point I do not plan any acute surgical intervention for her spine or leg. She could have some benefit with interventional pain management in the form of epidural steroid injections and we'll consult interventional pain management for her for this consideration.
[2018-01-31] MEDS: predniSONE 20 MG TAB PO SCH (11:55)
[2018-01-31] MEDS: GABAPENTIN 300 MG CAP PO SCH ×2 (11:56→21:23)
--- NOTE | 2018-01-31 14:02 | P.CNOR ---
History of Present Illness - [facility] Consult date: 01/30/18 Requesting physician: Lise Kruger Consult reason: joint pain History of present illness: Patient is a 72 yo female seen at bedside for consult for left hip and leg pain. She states that she has had weakness and as well as numbness at the left leg ranging from the left anterior thigh to the front of the lower leg. She denies foot or toe involvement. She denies any recent trauma. The symptoms have exacerbated over the past week or so. She denies any low back pain currently. She does state that she had a previous lumbar spine surgery in the "70's" including a fusion. She has no right leg symptoms, bowel/bladder loss, or saddle anesthesia. Review of Systems All systems: negative Constitutional: Denies chills, Denies fever Eyes: denies blurred vision, denies pain Ears, nose, mouth and throat: Denies headache, Denies sore throat Cardiovascular: Denies chest pain, Denies shortness of breath Respiratory: Denies cough Gastrointestinal: Denies abdominal pain, Denies diarrhea, Denies nausea, Denies vomiting Genitourinary: Denies dysuria, Denies hematuria Musculoskeletal: Denies myalgias Integumentary: Denies pruritus, Denies rash Neurological: Denies numbness, Denies weakness Psychiatric: Denies anxiety, Denies depression Endocrine: Denies fatigue, Denies weight change Past Medical History Past Medical History: Chest Pain / Angina, GERD/Reflux, Hyperlipidemia, Hypertension, Osteoarthritis (OA), Skin Disorder, Thyroid Disorder Additional Past Medical History / Comment(s): Hx. pancreatitis with pancreatic cysts-dr. williamson, psoriasis lt ankle, angina, vitamin D deficiency, degenerative disc disease of the lumbar spine and cervical spine status post multiple back/neck sx pt states unable to lift anything over 10# or stand for long periods of time..diverticulitis, bronchits,lt lung nodule dr watching.past uterin fibroids. falls, using walker when up History of Any Multi-Drug Resistant Organisms: MRSA Year Discovered:: 2013 in [place] [facility] MDRO Source:: spider bite on lt leg Past Surgical History: Adenoidectomy, Back Surgery, Bowel Resection, Cholecystectomy, Hysterectomy, Orthopedic Surgery, Tonsillectomy Additional Past Surgical History / Comment(s): Anterior cervical discectomy with fusion(toal 3 sx has wire in neck) , lumbar fusion 3-screws in back, R hip surgery, left 1st rib removal r/t thoracic outlet syndrome, hiatal hernia surg., recent EGD/colonoscopy, hysterectomy, cholecystectomy,bilateral cataract surgery with lens implant.lt elbow tendon release,sx on gums d/t infection, dental implant Past Anesthesia/Blood Transfusion Reactions: No Reported Reaction Additional Past Anesthesia/Blood Transfusion Reaction / Comm: blood transfusion in 1970-no reaction Smoking Status: Never smoker - Past Family History Father History Unknown: Yes Family Medical History: Coronary Artery Disease (CAD) Additional Family Medical History / Comment(s): aortic aneurysm at 72 Mother Family Medical History: CVA/TIA Brother(s) Family Medical History: No Reported History Sister(s) Family Medical History: Vascular Disorder Son(s) Family Medical History: No Reported History Daughter(s) Family Medical History: Unable to Obtain Medications and Allergies Home Medications Medication Instructions Recorded Confirmed Type Levothyroxine Sodium [Synthroid] 75 mcg PO DAILY 02/10/14 01/29/18 History Nitroglycerin Sl Tabs [Nitrostat] 0.4 mg SUBLINGUAL Q5M PRN 02/10/14 01/29/18 History Cholecalciferol [Vitamin D3] 2,000 unit PO DAILY 06/13/15 01/29/18 History Citalopram Hydrobromide [CeleXA] 20 mg PO DAILY 10/21/16 01/29/18 History [place]-3 Fatty Acids/Fish Oil [Fish 1 cap PO DAILY 10/21/16 01/29/18 History Oil 1,000 mg Softgel] Magnesium Citrate 125 mg PO DAILY 11/14/17 01/29/18 History Oxybutynin Chloride [Ditropan XL] 10 mg PO DAILY 11/14/17 01/29/18 History traMADol HCl [Ultram] 50 mg PO Q6H PRN #12 tab 01/26/18 01/29/18 Rx Isosorbide Mononitrate ER [Imdur] 30 mg PO DAILY 01/29/18 01/29/18 History Methocarbamol [Robaxin] 750 mg PO BID PRN 01/29/18 01/29/18 History Naproxen [Naprosyn] 500 mg PO BID 01/29/18 01/29/18 History Omeprazole [PriLOSEC] 40 mg PO DAILY 01/29/18 01/29/18 History Sodium Fluoride [Fluoride] 1 mg PO DAILY 01/29/18 01/29/18 History methylPREDNISolone Dose Pack See Taper PO DIRECTED 01/29/18 01/29/18 History [Medrol Dose Pack] Allergies Allergy/AdvReac Type Severity Reaction Status Date / Time cat pelt standardized Allergy Unknown Verified 01/29/18 11:00 allergenic ex clindamycin Allergy Rash/Hives Verified 01/29/18 11:00 atorvastatin calcium AdvReac LEG CRAMPS Verified 01/29/18 11:00 [From Lipitor] morphine AdvReac Nausea & Verified 01/29/18 11:00 Vomiting niacin AdvReac LEG CRAMPS Verified 01/29/18 11:00 Physical Examination Left Hip: Benign to inspection. Mild tenderness at the trochanteric bursa. Painless passive and free ROM with Hip flexion/extension, internal rotation and external rotation. Knee exam benign as well with no deformity, tenderness or limitation with ROM. Lumbar Spine: shows benign well healed surgical wounds. No erythema, edema or stepoff. She has tight hamstrings. No true straight leg raising. She has weakness in the left hip flexors being approximately. 3/5. There is some hypoesthesia along the left anterior leg along the L3 dermatome. Otherwise normal exam with 5/5 strength at L2-S1 myotomes bilaterally and L2-S1 dermatomes are intact to light touch. Reflexes are 1+ at Knee jerks and ankle jerks bilaterally. No clonus and negative babinski. Results Hip xrays are negative for fractures or lesions. Mild degenerative changes - Labs Labs: Abnormal Lab Results - Last 24 Hours (Table) 01/31/18 Range/Units 06:50 BUN 27 H (7-17) mg/dL Creatinine 1.23 H (0.52-1.04) mg/dL H & H 01/30/18 01/31/18 Range/Units 06:51 06:50 Hgb 12.1 12.3 (11.4-16.0) gm/dL Hct 37.4 37.9 (34.0-46.0) % Result Diagrams: 01/31/18 06:50 01/31/18 06:50 - Diagnostic results Hip x-ray: report reviewed, image reviewed Assessment and Plan (1) Left hip pain Narrative/Plan: Suspect that her symptoms are arising from her lumbar spine and not her hip. Will order x-rays of lumbar spine and CT to assess her prior fusion as well as possible causes of her current symptoms. Will consider adding prednisone for inflammation and neurontin for nerve pain relief. Should also continue with PT and pain management. Will make further recommendations as appropriate. Thank you Current Visit: Yes Status: Acute Priority: Medium Code(s): M25.552 - PAIN IN LEFT HIP SNOMED Code(s): 05399940 Time with Patient: Less than 30
--- NOTE | 2018-01-31 19:25 | CT ---
EXAMINATION TYPE: CT brain wo con DATE OF EXAM: 01/31/2018 COMPARISON: June 29, 2016 HISTORY: Falls, posterior head injury. CT DLP: 782.6 mGycm Automated exposure control for dose reduction was used. FINDINGS: No acute hemorrhage or major vessel territorial infarct is seen. There is no mass, mass effect, or mi dline shift. There are no abnormal intra or extra-axial fluid collections. Calvarium and paranasal si nuses appear unremarkable. The mastoid air cells are well aerated. IMPRESSION: NO ACUTE INTRACRANIAL ABNORMALITY.
[2018-01-31] MEDS ORDERED: GABAPENTIN 300 MG CAP PO SCH (21:00)
[2018-02-01] MEDS: SODIUM CHLORIDE 0.9% 1,000 ML IV SCH ×2 (03:07→17:23)
[2018-02-01] MEDS: LEVOTHYROXINE 75 MCG TAB PO SCH (06:04)
[2018-02-01] MEDS: PANTOPRAZOLE 40 MG TABLET PO SCH (07:56)
[2018-02-01] MEDS: ISOSORBIDE MONONITRATE ER 30 MG TAB.ER.24H PO SCH (07:56)
[2018-02-01] MEDS: CITALOPRAM HYDROBROMIDE 20 MG TAB PO SCH (07:56)
[2018-02-01] MEDS: predniSONE 20 MG TAB PO SCH (07:57)
[2018-02-01] MEDS: OXYBUTYNIN 10 MG TAB.ER.24 PO SCH (07:57)
[2018-02-01] MEDS: CHOLECALCIFEROL 1,000 UNIT TAB PO SCH (07:57)
[2018-02-01] MEDS: GABAPENTIN 300 MG CAP PO SCH ×2 (07:57→20:56)
[2018-02-01] MEDS: NAPROXEN 250 MG TAB PO SCH ×2 (07:57→20:55)
[2018-02-01] MEDS: HEPARIN SODIUM,PORCINE 5,000 UNIT/ML 1 ML VIAL SQ SCH ×2 (07:58→20:57)
[2018-02-01] MEDS ORDERED: predniSONE 20 MG TAB PO SCH (09:00)
[2018-02-01 09:17] LABS: HGB 12.3 gm/dL (11.4-16.0); RBC 4.27 m/uL (3.80-5.40); WBC 7.8 k/uL (3.8-10.6)
[2018-02-01 09:18] LABS: Basophils % (A) 0 %; Eosinophils % (A) 0 %; HCT 38.7 % (34.0-46.0); Lymphocytes # (A) 1.9 k/uL (1.0-4.8); Lymphocytes % (A) 24 %; MCH 28.8 pg (25.0-35.0); MCHC 31.8 g/dL (31.0-37.0); MCV 90.6 fL (80.0-100.0); Mean Platelet Volume 7.1; Monocytes # (A) 0.4 k/uL (0-1.0); Monocytes % (A) 6 %; Neutrophils # (A) 5.2 k/uL (1.3-7.7); Neutrophils % (A) 67 %; Platelet Count 299 k/uL (150-450); RDW 13.1 % (11.5-15.5)
[2018-02-01 09:48] LABS: Calcium 9.3 mg/dL (8.4-10.2); Potassium 4.7 mmol/L (3.5-5.1)
--- NOTE | 2018-02-01 09:58 | P.CONS ---
History of Present Illness - Reason for Consult Consult date: 02/01/18 - History of Present Illness This is 72 years old female, she was admitted to [facility], secondary to severe low back pain with radiation to the left hip and lower extremity, started 2 weeks ago, she denies any initiating event no history of trauma or accident or heavy lifting, and is constant, intensity of the pain is 10 over 10, and she feels that her left lower extremity weaker than the right side and this caused her multiple falls, the pain is constant radiated from the back towards the left hip and the anteriormedial aspect of the left thigh , she denies any fever or chills she denies any night sweats , patient reported that she had 3 lumbar surgery , and the last surgery was more than 20 years ago , she was a fusion from L4 to S1 , Past Medical History Past Medical History: Chest Pain / Angina, GERD/Reflux, Hyperlipidemia, Hypertension, Osteoarthritis (OA), Skin Disorder, Thyroid Disorder Additional Past Medical History / Comment(s): Hx. pancreatitis with pancreatic cysts-dr. williamson, psoriasis lt ankle, angina, vitamin D deficiency, degenerative disc disease of the lumbar spine and cervical spine status post multiple back/neck sx pt states unable to lift anything over 10# or stand for long periods of time..diverticulitis, bronchits,lt lung nodule dr olamide.past uterin fibroids. falls, using walker when up History of Any Multi-Drug Resistant Organisms: MRSA Year Discovered:: 2013 in [facility] MDRO Source:: spider bite on lt leg Past Surgical History: Adenoidectomy, Back Surgery, Bowel Resection, Cholecystectomy, Hysterectomy, Orthopedic Surgery, Tonsillectomy Additional Past Surgical History / Comment(s): Anterior cervical discectomy with fusion(toal 3 sx has wire in neck) , lumbar fusion 3-screws in back, R hip surgery, left 1st rib removal r/t thoracic outlet syndrome, hiatal hernia surg., recent EGD/colonoscopy, hysterectomy, cholecystectomy,bilateral cataract surgery with lens implant.lt elbow tendon release,sx on gums d/t infection, dental implant Past Anesthesia/Blood Transfusion Reactions: No Reported Reaction Additional Past Anesthesia/Blood Transfusion Reaction / Comm: blood transfusion in 1970-no reaction Smoking Status: Never smoker - Past Family History Father History Unknown: Yes Family Medical History: Coronary Artery Disease (CAD) Additional Family Medical History / Comment(s): aortic aneurysm at 72 Mother Family Medical History: CVA/TIA Brother(s) Family Medical History: No Reported History Sister(s) Family Medical History: Vascular Disorder Son(s) Family Medical History: No Reported History Daughter(s) Family Medical History: Unable to Obtain Medications and Allergies Home Medications Medication Instructions Recorded Confirmed Type Levothyroxine Sodium [Synthroid] 75 mcg PO DAILY 02/10/14 01/29/18 History Nitroglycerin Sl Tabs [Nitrostat] 0.4 mg SUBLINGUAL Q5M PRN 02/10/14 01/29/18 History Cholecalciferol [Vitamin D3] 2,000 unit PO DAILY 06/13/15 01/29/18 History Citalopram Hydrobromide [CeleXA] 20 mg PO DAILY 10/21/16 01/29/18 History [place]-3 Fatty Acids/Fish Oil [Fish 1 cap PO DAILY 10/21/16 01/29/18 History Oil 1,000 mg Softgel] Magnesium Citrate 125 mg PO DAILY 11/14/17 01/29/18 History Oxybutynin Chloride [Ditropan XL] 10 mg PO DAILY 11/14/17 01/29/18 History traMADol HCl [Ultram] 50 mg PO Q6H PRN #12 tab 01/26/18 01/29/18 Rx Isosorbide Mononitrate ER [Imdur] 30 mg PO DAILY 01/29/18 01/29/18 History Methocarbamol [Robaxin] 750 mg PO BID PRN 01/29/18 01/29/18 History Naproxen [Naprosyn] 500 mg PO BID 01/29/18 01/29/18 History Omeprazole [PriLOSEC] 40 mg PO DAILY 01/29/18 01/29/18 History Sodium Fluoride [Fluoride] 1 mg PO DAILY 01/29/18 01/29/18 History methylPREDNISolone Dose Pack See Taper PO DIRECTED 01/29/18 01/29/18 History [Medrol Dose Pack] Allergies Allergy/AdvReac Type Severity Reaction Status Date / Time cat pelt standardized Allergy Unknown Verified 01/29/18 11:00 allergenic ex clindamycin Allergy Rash/Hives Verified 01/29/18 11:00 atorvastatin calcium AdvReac LEG CRAMPS Verified 01/29/18 11:00 [From Lipitor] morphine AdvReac Nausea & Verified 01/29/18 11:00 Vomiting niacin AdvReac LEG CRAMPS Verified 01/29/18 11:00 Physical Exam Vitals: Vital Signs Temp Pulse Resp BP Pulse Ox 02/01/18 07:30 97.3 F L 72 18 158/73 95 01/31/18 21:05 97.9 F 79 16 113/59 93 L 01/31/18 14:44 97.6 F 85 16 123/63 92 L Intake and Output 01/31/18 02/01/18 02/01/18 22:59 06:59 14:59 Other: Voiding Method Toilet Toilet Bedside Commode Bedside Commode # Voids 1 2 Physical Examinations : 1-Constitutiona : Cooperative , not in acute distress . 2-HEENT : nech ; supple , no Lymphadenopathy , normal thyroid size . eyes : no ptosis , no icterus, no photophobia . ENT : normal of hearing , normal oropharynx , no Thrush . 3- Respiratory : Chest clear to auscultations Bilaterally , no wheezing , no Rhonchi . 4- Cardiovascular : regular rate and rhythem , S1 , S2 , no S3 , no S4. 5- Gastrointestinal : abdomen soft no tenderness , bowel sounds positive all four quadrents , no organomegally . 6- Genitourinary : Defferred . 7- neurologic : Cranial nerve II to XII intact , no focal neurological deffecit . 8-psychatric : alert , oriented X 3 , appropriate affect , intact judgment and insight . 9-Lymphatic : no Lymphadenopathy . 10- musculoskeltal : , Lumber spine = moter stegnth lower extremities ,thigh and legs .4/ 5 left side , 5/5 right side , hypoesthesia anterior ,medial aspect left thigh deep tendon reflexes : normal Knee Jerk , normal ankle Jerk . lumber facet Loading Test positive strait leg raising test positive at 60 degree Right , positve at 30 degree Left Fabere test positive Right and positive Left Sever tenderness over the trochanteric bursa Left side Results CBC & Chem 7: 02/01/18 07:47 01/31/18 06:50 Comments: Computed tomography scan of the lumbar spine reviewed and it showed multilevel lumbar degenerative disc disease, and lumbar facet hypertrophy and previous fusion surgery Assessment and Plan Plan: Assessment and plan=1- failed back surgeries in the lumbar area, 2-lumbar degenerative disc disease . 3-lumbar facet arthropathy. 4-left trochanteric bursitis. Patient could benefit from interventional pain management/, epidural steroid injection with lysis of epidural adhesions, which will be done under fluoroscopy guidance tomorrow morning because patient had food this morning Also patient could benefit from left trochanteric bursa steroid injection, procedure risk, and benefits ,and alternatives discussed with the patient and she agreed with proceeding Time with Patient: Greater than 30
[2018-02-01] MEDS: traMADol 50 MG TAB PO PRN ×2 (12:11→18:04)
--- NOTE | 2018-02-01 23:46 | P.PN ---
Subjective Progress Note Date: 01/31/18 Principal diagnosis: Left hip pain Mrs. Grijalva is a 72-year-old female with a past medical history of hypertension , hyperlipidemia, osteoarthritis, thyroid disorder , chronic low back pain status post lumbar spinal fusion coming in with a chief complaint of left hip and leg pain. Patient states that she has been feeling weak and also numbness of the left leg on the left lateral anterior side of the thigh to the front of her lower leg for the past 5-7 days. She denies having any recent falls. Patient has history of lumbar spine fusion in the 70s. Patient denies having any loss of control of bowels or bladder or any tingling or numbness in her feet. She is admitted for acute on chronic left hip pain. Orthopedic services have been consulted who did evaluate the patient and suggested that she might be benefited from an epidural steroid injection for which pain services have been consulted today. Currently the patient is sitting up in the bed appears to be in no acute distress she states that her left hip pain and left thigh pain is still the same. No new complaints. Review of systems: Constitutional: Denies chills, Denies fever Eyes: denies blurred vision, denies pain Ears, nose, mouth and throat: Denies headache, Denies sore throat Cardiovascular: Denies chest pain, Denies shortness of breath Respiratory: Denies cough Gastrointestinal: Denies abdominal pain, Denies diarrhea, Denies nausea, Denies vomiting Genitourinary: Denies dysuria, Denies hematuria Objective - Vital Signs Vital signs: Vital Signs Temp 98.0 F 01/31/18 07:50 Pulse 82 01/31/18 07:50 Resp 18 01/31/18 07:50 BP 120/59 01/31/18 07:50 Pulse Ox 95 01/31/18 07:50 Intake & Output 01/30/18 01/31/18 01/31/18 18:59 06:59 18:59 Intake Total 1040 Output Total 500 Balance 1040 -500 Weight 71.5 kg Intake: Oral 1040 Output: Urine 500 Other: Voiding Method Toilet Toilet Bedside Commode # Voids 1 1 2 - Exam GENERAL EXAM GENERAL: Sitting up in bed, no acute distress HEENT: Conjunctivae normal. eyes normal. Oral mucosa moist NECK: No JVD. No thyroid enlargement. No LNs CARDIOVASCULAR: S1, S2 muffled. No murmur RESPIRATION: Breath sounds diminished in the bases. No rhonchi or crackles. No bronchial breathing. ABDOMEN: Soft, nontender . No guarding. no masses palpable.Bowel sounds heard. LEGS: Left knee tender, right knee edema PSYCHIATRY: Alert and oriented -3, mood and affect normal. NERVOUS SYSTEM: Cranial N 2-12 grossly normal. Moves all 4 limbs. Diffuse weakness No focal deficits. Skin: no ulcer no rash Lymphatic system. No LN neck axilla or groin. - Labs CBC & Chem 7: 01/31/18 06:50 01/31/18 06:50 Labs: Abnormal Lab Results - Last 24 Hours (Table) 01/31/18 Range/Units 06:50 BUN 27 H (7-17) mg/dL Creatinine 1.23 H (0.52-1.04) mg/dL Assessment and Plan Plan: ASSESSMENT 1. Left hip pain and bilateral knee pain, possible degenerative joint disease 2. Gait dysfunction 3. Gastroesophageal reflux disease 4. History of back surgery PLAN Patient has been started on prednisone 20 mg and Neurontin today by orthopedic services. As suggested by them pain services have been consulted for possible epidural injections. We'll continue with the rest of her home medication regimen. Further recommendations to follow depending on the progress the patient.
--- NOTE | 2018-02-01 23:46 | P.PN ---
Subjective Progress Note Date: 02/01/18 Principal diagnosis: Left hip pain Mrs. Grijalva is a 72-year-old female with a past medical history of hypertension , hyperlipidemia, osteoarthritis, thyroid disorder , chronic low back pain status post lumbar spinal fusion coming in with a chief complaint of left hip and leg pain. Patient states that she has been feeling weak and also numbness of the left leg on the left lateral anterior side of the thigh to the front of her lower leg for the past 5-7 days. She denies having any recent falls. Patient has history of lumbar spine fusion in the 70s. Patient denies having any loss of control of bowels or bladder or any tingling or numbness in her feet. She is admitted for acute on chronic left hip pain. Orthopedic services have been consulted who did evaluate the patient and suggested that she might be benefited from an epidural steroid injection for which pain services have been consulted today. On 01/31/18- patient is sitting up in the bed appears to be in no acute distress she states that her left hip pain and left thigh pain is still the same. No new complaints. On 02/01/2018 - last night the patient had a fall in the bathroom and hit her head. She noticed a small bump on the posterior side of the head in the occipital region. No bleeding or process. Patient did not have loss of consciousness, her knee gave away and she had this fall. Computed tomography scan of the head was done last night which was within normal limits. Patient was evaluated by pain services and she is scheduled for an epidural steroid injection for tomorrow morning. Patient to be Nothing by mouth tonight for the procedure. Review of systems: Constitutional: Denies chills, Denies fever HEENT : Ears, nose, mouth and throat: Denies headache, Denies sore throat Cardiovascular: Denies chest pain, Denies shortness of breath Respiratory: Denies cough Gastrointestinal: Denies abdominal pain, Denies diarrhea, Denies nausea, Denies vomiting Genitourinary: Denies dysuria, Denies hematuria Objective - Vital Signs Vital signs: Vital Signs Temp 97.3 F L 02/01/18 07:30 Pulse 72 02/01/18 07:30 Resp 18 02/01/18 07:30 BP 158/73 02/01/18 07:30 Pulse Ox 95 02/01/18 07:30 Intake & Output 01/31/18 02/01/18 02/01/18 18:59 06:59 18:59 Other: Voiding Method Toilet Toilet Bedside Commode Bedside Commode # Voids 2 2 - Exam GENERAL EXAM GENERAL: Sitting up in bed, no acute distress HEENT: posterior side of the head - small bump noticed, Conjunctivae normal. eyes normal. Oral mucosa moist NECK: No JVD. No thyroid enlargement. No LNs CARDIOVASCULAR: S1, S2 muffled. No murmur RESPIRATION: Breath sounds diminished in the bases. No rhonchi or crackles. No bronchial breathing. ABDOMEN: Soft, nontender . No guarding. no masses palpable.Bowel sounds heard. LEGS: Left knee tender, bilateral lower extremity varicose veins noted PSYCHIATRY: Alert and oriented -3, mood and affect normal. NERVOUS SYSTEM: Cranial N 2-12 grossly normal. Moves all 4 limbs. Diffuse weakness No focal deficits. Skin: no ulcer no rash Lymphatic system. No LN neck axilla or groin. - Labs CBC & Chem 7: 02/01/18 07:47 02/01/18 07:47 Labs: Abnormal Lab Results - Last 24 Hours (Table) 02/01/18 Range/Units 07:47 Sodium 135 L (137-145) mmol/L BUN 27 H (7-17) mg/dL Glucose 127 H (74-99) mg/dL Assessment and Plan Plan: ASSESSMENT 1. Left hip pain and bilateral knee pain, possible degenerative joint disease 2. Gait dysfunction 3. Gastroesophageal reflux disease 4. History of back surgery 5. Mechanical fall last night PLAN Patient has been started on prednisone 20 mg and Neurontin today by orthopedic services. As suggested by them pain services have been consulted for possible epidural injections- scheduled for the procedure tomorrow morning. Patient to be kept nothing by mouth tonight. We'll continue with the rest of her home medication regimen. Further recommendations to follow depending on the progress the patient.
[2018-02-02] MEDS: LEVOTHYROXINE 75 MCG TAB PO SCH (06:12)
[2018-02-02] MEDS: SODIUM CHLORIDE 0.9% 1,000 ML IV SCH (06:12)
[2018-02-02] MEDS ORDERED: LACTATED RINGERS 1,000 ML IV SCH (08:22)
[2018-02-02 08:35] LABS: Basophils % (A) 0 %; Eosinophils # (A) 0.1 k/uL (0-0.7); Eosinophils % (A) 2 %; HGB 11.2 gm/dL (11.4-16.0); Lymphocytes # (A) 2.7 k/uL (1.0-4.8); Lymphocytes % (A) 33 %; MCH 28.7 pg (25.0-35.0); MCV 89.5 fL (80.0-100.0); Mean Platelet Volume 7.3; Monocytes # (A) 0.5 k/uL (0-1.0); Monocytes % (A) 5 %; Neutrophils # (A) 4.8 k/uL (1.3-7.7); Neutrophils % (A) 58 %; Platelet Count 262 k/uL (150-450); RBC 3.91 m/uL (3.80-5.40); RDW 13.4 % (11.5-15.5); WBC 8.4 k/uL (3.8-10.6)
--- NOTE | 2018-02-02 08:41 | P.PCN ---
Date of Procedure: 02/02/18 Procedure(s) Performed: PREOP DIAGNOSIS: 1- Lumbar postlaminectomy syndrome. 2-left trochanteric bursitis. 3-lumbar facet arthropathy POSTOP DIAGNOSIS:1- Lumbar postlaminectomy syndrome. 2-left trochanteric bursitis 3-lumbar facet arthropathy . PROCEDURE: 1-Caudal epidural steroid injection with epidurolysis and epidurogram under fluoroscopic guidance. 2- Left trochanteric bursa steroid injection under fluoroscopy guidance. ANESTHESIA: Local with 1% lidocaine 3 ml ,and moderate sedation, with Versed 1 mg and fentanyl 50 g EBL: Minimal. PROCEDURE INDICATION: The patient with post-laminectomy syndrome with low back pain and radiculopathy radiating down in both legs, here for a caudal epidural steroid injection with epidurolysis. PROCEDURE DESCRIPTION: The patient was seen and identified in the preoperative area. Risks, benefits, complications, and alternatives were discussed with the patient. The patient agreed to proceed with the procedure and signed the consent. IV was started, and vital signs were stable. Patient was taken to the OR and time out was completed. The patient was placed in the prone position on procedure table and a pillow was placed under the abdomen to reduce lumbar lordosis. The lumbosacral area was prepped and draped in the usual sterile fashion. Vital signs were closely monitored during the procedure. lateral view and the anterior-posterior plates of the sacrum were identified with infiltration of the area overlying the sacral hiatus with 1% lidocaine .A 17 gauge RK epidural needle was used to advance through the sacral hiatus into the caudal epidural space. Omnipaque 180 dye. 2cc was injected and the position of the needle was verified to be in the midline. A Racz catheter was introduced into the epidural space and was advanced towards the L2-3 interspace under direct fluoroscopic guidance. Multiple passes were made with the catheter for lysis of epidural adhesions. Dexamethasone 10 mg with 3ml of preservative free Lidocaine 1% and 5 ml of preservative free normal saline was injected slowly. Additional spread was seen to L2 under fluoroscopy. The needle and the catheter were withdrawn intact. EPIDUROGRAM: Isoview 200 mg dye 2 ml was injected with spread of the dye into the caudal epidural space and with spread cutoff at L4 prior to epidurolysis. Post epidurolysis dye 2 ml was injected and spread was seen to L2-3.There was further spread of the solution together with the dye above the L2. Then after that the left trochanteric bursa area prepped with Betadine 3 and using 22-gauge quickie time needle, after local infiltration of the skin and subcutaneous tissue with lidocaine 1% 2 mL then 22-gauge Quincke Needle advanced slowly under fluoroscopy and placed in the left trochanteric bursa area , needle placement confirmed with AP and lateral view then after negative aspiration Marcaine 0.5% 5 ML and 5 mg of dexamethasone injected in the left trochanteric bursa after negative aspiration patient tolerated the procedure well without any complications. DISPOSITION / PLANS: The patient was placed in a supine position and transferred to the recovery area in a stable condition for observation and was discharged from the recovery room after meeting discharge criteria. Home discharge instructions given to the patient by the staff. The patient was reexamined prior to discharge. The patient will schedule a follow up in the clinic in 2-4 weeks.
[2018-02-02] MEDS: ISOSORBIDE MONONITRATE ER 30 MG TAB.ER.24H PO SCH (08:54)
[2018-02-02] MEDS: NAPROXEN 250 MG TAB PO SCH (08:54)
[2018-02-02] MEDS: CITALOPRAM HYDROBROMIDE 20 MG TAB PO SCH (09:01)
[2018-02-02] MEDS: predniSONE 20 MG TAB PO SCH (09:01)
[2018-02-02] MEDS: PANTOPRAZOLE 40 MG TABLET PO SCH (09:01)
[2018-02-02] MEDS: OXYBUTYNIN 10 MG TAB.ER.24 PO SCH (09:01)
[2018-02-02] MEDS: GABAPENTIN 300 MG CAP PO SCH (09:01)
[2018-02-02] MEDS: CHOLECALCIFEROL 1,000 UNIT TAB PO SCH (09:01)
[2018-02-02 09:02] LABS: Calcium 8.7 mg/dL (8.4-10.2); Potassium 4.2 mmol/L (3.5-5.1)
[2018-02-02 09:38] VITALS: BP 155/73; PULSE 61; RESP 18; TEMP 97.5
[2018-02-02] MEDS: traMADol 50 MG TAB PO PRN (10:40)
--- NOTE | 2018-02-02 11:06 | FL ---
EXAMINATION TYPE: FL guided pain mgmt statistic DATE OF EXAM: 02/02/2018 FLUOROSCOPY Fluoroscopy time of 7 seconds was used during caudal epidural injection with lysis and left greater t rochanteric injection. 4 image/s document/s the procedure.
[2018-02-02] MEDS ORDERED: HEPARIN SODIUM,PORCINE 5,000 UNIT/ML 1 ML VIAL SQ SCH (21:00)
--- NOTE | 2018-02-03 22:31 | P.DS ---
Providers Date of admission: 01/30/18 12:48 Expected date of discharge: 02/02/18 Attending physician: Gerardo Acosta Consults: 01/29/18 17:50 Consult Physician Routine Consulting Provider: Lise Kruger Consult Reason/Comments: hip pain Do you want consulting provider notified?: Yes 01/31/18 11:16 Consult to Anesthesia Routine Consulting Provider: Anesthesia,Services Consult Reason/Comments: Interventional pain management possible epidural steroid injection Primary care physician: Roxanna Beth David Hospital Course: Mrs. Grijalva is a 72-year-old female with a past medical history of hypertension , hyperlipidemia, osteoarthritis, thyroid disorder , chronic low back pain status post lumbar spinal fusion coming in with a chief complaint of left hip and leg pain. Patient has been feeling weak and also numbness of the left leg on the left lateral anterior side of the thigh to the front of her lower leg for the past 5-7 days. She denied having any recent falls. Patient has history of lumbar spine fusion in the 70s. Patient denied having any loss of control of bowels or bladder or any tingling or numbness in her feet. She is admitted for acute on chronic left hip pain. Orthopedic services have been consulted who did evaluate the patient and suggested that she might be benefited from an epidural steroid injection for which pain services have been consulted . On 01/31/18- patient is sitting up in the bed appears to be in no acute distress she states that her left hip pain and left thigh pain is still the same. No new complaints. On 02/01/2018 - last night the patient had a fall in the bathroom and hit her head. She noticed a small bump on the posterior side of the head in the occipital region. No bleeding or process. Patient did not have loss of consciousness, her knee gave away and she had this fall. Computed tomography scan of the head was done last night which was within normal limits. Patient was evaluated by pain services and she is scheduled for an epidural steroid injection for tomorrow morning. Patient to be Nothing by mouth tonight for the procedure. On 02/02/18 - Pt received epidural steroid injection and later by noon, she has relief of symptoms and was ready to go home. DISCHARGE DIAGONSIS 1. Left hip pain and bilateral knee pain, possible degenerative joint disease 2. Gait dysfunction 3. Gastroesophageal reflux disease 4. History of back surgery 5. Mechanical fall Patient Condition at Discharge: Fair Plan - Discharge Summary Discharge Rx Participant: Yes New Discharge Prescriptions: New Gabapentin [Neurontin] 300 mg PO BID #30 cap Continue Nitroglycerin Sl Tabs [Nitrostat] 0.4 mg SUBLINGUAL Q5M PRN PRN Reason: Chest Pain Levothyroxine Sodium [Synthroid] 75 mcg PO DAILY Cholecalciferol [Vitamin D3] 2,000 unit PO DAILY [place]-3 Fatty Acids/Fish Oil [Fish Oil 1,000 mg Softgel] 1 cap PO DAILY Citalopram Hydrobromide [CeleXA] 20 mg PO DAILY Oxybutynin Chloride [Ditropan XL] 10 mg PO DAILY Magnesium Citrate 125 mg PO DAILY traMADol HCl [Ultram] 50 mg PO Q6H PRN #12 tab PRN Reason: Pain Isosorbide Mononitrate ER [Imdur] 30 mg PO DAILY Methocarbamol [Robaxin] 750 mg PO BID PRN PRN Reason: Muscle Spasm methylPREDNISolone Dose Pack [Medrol Dose Pack] See Taper PO DIRECTED Naproxen [Naprosyn] 500 mg PO BID Omeprazole [PriLOSEC] 40 mg PO DAILY Sodium Fluoride [Fluoride] 1 mg PO DAILY Discharge Medication List Levothyroxine Sodium [Synthroid] 75 mcg PO DAILY 02/10/14 [History] Nitroglycerin Sl Tabs [Nitrostat] 0.4 mg SUBLINGUAL Q5M PRN 02/10/14 [History] Cholecalciferol [Vitamin D3] 2,000 unit PO DAILY 06/13/15 [History] Citalopram Hydrobromide [CeleXA] 20 mg PO DAILY 10/21/16 [History] [place] Fatty Acids/Fish Oil [Fish Oil 1,000 mg Softgel] 1 cap PO DAILY [History] Magnesium Citrate 125 mg PO DAILY 11/14/17 [History] Oxybutynin Chloride [Ditropan XL] 10 mg PO DAILY 11/14/17 [History] traMADol HCl [Ultram] 50 mg PO Q6H PRN #12 tab 01/26/18 [Rx] Isosorbide Mononitrate ER [Imdur] 30 mg PO DAILY 01/29/18 [History] Methocarbamol [Robaxin] 750 mg PO BID PRN 01/29/18 [History] Naproxen [Naprosyn] 500 mg PO BID 01/29/18 [History] Omeprazole [PriLOSEC] 40 mg PO DAILY 01/29/18 [History] Sodium Fluoride [Fluoride] 1 mg PO DAILY 01/29/18 [History] methylPREDNISolone Dose Pack [Medrol Dose Pack] See Taper PO DIRECTED [History] Gabapentin [Neurontin] 300 mg PO BID #30 cap 02/02/18 [Rx] Follow up Appointment(s)/Referral(s): Roxanna Lozano MD [Primary Care Provider] - 1-2 days (Patient to call and schedule follow up appointment. The office is closed at time of discharge.) Austin Alfonso PAC [PHYSICIAN [employer]] - As Needed (Patient may follow-up with Austin Alfonso PA-C or Dr. Richard Kruger at [facility] on an as needed basis.) Patient Instructions/Handouts: Gabapentin (By mouth), Hip Pain (GEN) Discharge Disposition: HOME SELF-CARE
--- NOTE | 2018-02-19 08:14 | CDI ---
Last Revision, September 2017 Documentation Clarification Form Date: 02/19/18 From: Matilda Recinos Phone: If you have a question regarding this query, please contact Zahida Cadena at [phone] between 8am and 5pm Admit Date: 01/30/2018 12:48:00 PM Patient Name: Celeste Grijalva Visit Number: [id number] Discharge Date: 02/02/18 ATTENTION: The Clinical Documentation Specialists (CDI) and [facility] Coding Staff appreciate your assistance in clarifying documentation. Please respond to the clarification below the line at the bottom and electronically sign. The CDI & [facility] Coding staff will review the response and follow-up if needed. Please note: Queries are made part of the Legal Health Record. If you have any questions, please contact the author of this message via ITS. Dr. Romeo Dubose Conflicting documentation has been found in the medical record. In your discharge summary, you document that the patient has left hip and bilateral knee pain, possible degenerative joint disease. Dr. Tijerina stated that the patient had lumbar postlaminectomy syndrome, left trochanteric bursitis and lumbar facet arthropathy. He also documents in his assessment in this consult note that the patient has failed back surgeries in the lumbar area, lumbar degenerative disc disease, lumbar facet arthropathy and left trochanteric bursitis. History/Risk Factors: The patient presented for left hip pain after several falls and right knee pain. Patient states that she has had weakness as well as numbness at the left leg ranging from the left anterior thigh to the front of the lower leg. She is denying low back pain. She had previous lumbar fusion in the 70s. Clinical Indicators: Pain in the left hip and bilateral knees and falling. Treatment: Epidural steroid injection with epidurolysis and a left trochanteric bursa steroid injection. In your opinion what is the most clinically appropriate diagnosis for this patient? 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
== END 2018-02-02 17:05 | disposition home or self-care (01) | DRG 552 ==
LOC: EC 09:42 → 5MS5E 13:35 → OBSVTOIN 01-30 12:48
PROVIDERS: ADMIT Hospitalist; ATTEND Hospitalist
PROC: 3E0R3BZ Introduction of Anesthetic Agent into Spinal Canal, Percutaneous Approach (ICD-10-PCS; 2018-02-02)
PROC: 00HU33Z Insertion of Infusion Device into Spinal Canal, Percutaneous Approach (ICD-10-PCS; 2018-02-02)
PROC: 3E0U33Z Introduction of Anti-inflammatory into Joints, Percutaneous Approach (ICD-10-PCS; 2018-02-02)
PROC: 3E0U3BZ Introduction of Anesthetic Agent into Joints, Percutaneous Approach (ICD-10-PCS; 2018-02-02)
PROC: 3E0R33Z Introduction of Anti-inflammatory into Spinal Canal, Percutaneous Approach (ICD-10-PCS; principal; 2018-02-02 07:30)
PROC: B01BZZZ Fluoroscopy of Spinal Cord (ICD-10-PCS; 2018-02-02 07:30)
DX: M96.1 Postlaminectomy syndrome, not elsewhere classified (principal); K86.2 Cyst of pancreas; E78.5 Hyperlipidemia, unspecified; G89.29 Other chronic pain; I10 Essential (primary) hypertension; K21.9 Gastro-esophageal reflux disease without esophagitis; M46.96 Unspecified inflammatory spondylopathy, lumbar region; M70.62 Trochanteric bursitis, left hip; R29.6 Repeated falls; E55.9 Vitamin D deficiency, unspecified; L40.9 Psoriasis, unspecified; M25.561 Pain in right knee; M25.562 Pain in left knee; R13.10 Dysphagia, unspecified; M50.30 Other cervical disc degeneration, unspecified cervical region; R91.1 Solitary pulmonary nodule; K57.90 Diverticulosis of intestine, part unspecified, without perforation or abscess without bleeding; M17.0 Bilateral primary osteoarthritis of knee; S09.8XXA Other specified injuries of head, initial encounter; E07.9 Disorder of thyroid, unspecified; M16.12 Unilateral primary osteoarthritis, left hip; Z79.899 Other long term (current) drug therapy; Z79.890 Hormone replacement therapy; Z88.1 Allergy status to other antibiotic agents; Z88.5 Allergy status to narcotic agent; Z88.8 Allergy status to other drugs, medicaments and biological substances; Z91.048 Other nonmedicinal substance allergy status; Z98.42 Cataract extraction status, left eye; Z98.41 Cataract extraction status, right eye; Z98.1 Arthrodesis status; Z96.1 Presence of intraocular lens; Z90.710 Acquired absence of both cervix and uterus; Z86.14 Personal history of Methicillin resistant Staphylococcus aureus infection; Z90.49 Acquired absence of other specified parts of digestive tract; Z82.3 Family history of stroke; Z83.2 Family history of diseases of the blood and blood-forming organs and certain disorders involving the immune mechanism; Y83.8 Other surgical procedures as the cause of abnormal reaction of the patient, or of later complication, without mention of misadventure at the time of the procedure; W18.30XA Fall on same level, unspecified, initial encounter; Y92.002 Bathroom of unspecified non-institutional (private) residence as the place of occurrence of the external cause
CPT/HCPCS: 20610; 62264; 70450; 72114; 72131; 73502; 80048; 81001; 85025; 96374; 96375; 99152; 99284

== ENCOUNTER → 2018-02-05 | Outpatient (CLI) | payer MEDICARE, OTHER ==
[2018-02-05 09:54] LABS: Albumin 3.2 g/dL (3.5-5.0); Calcium 8.9 mg/dL (8.4-10.2); Potassium 4.3 mmol/L (3.5-5.1); Total Bilirubin 0.5 mg/dL (0.2-1.3); Total Protein 5.4 g/dL (6.3-8.2)
== END | disposition home or self-care (01) ==
LOC: LABWHC1 09:04
PROVIDERS: ATTEND Internal Medicine Interventional Cardiology
DX: E78.2 Mixed hyperlipidemia (principal)
CPT/HCPCS: 36415; 80053; 80061

== ENCOUNTER → 2018-02-24 | Outpatient (CLI) | payer MEDICARE, OTHER ==
--- NOTE | 2018-02-24 13:50 | BD ---
EXAMINATION TYPE: Axial Bone Density DATE OF EXAM: 02/24/2018 COMPARISON: NONE CLINICAL HISTORY: Z78.0 POST MENOPAUSAL Height: 60 Weight: 160.1 FRAX RISK QUESTIONS: Alcohol (3 or more units per day): no Family History (Parent hip fracture): no Glucocorticoids (More than 3mos): no (Ex: prednisone, prednisolone, methylprednisolone, dexamethasone, and hydrocortisone). History of Fracture in Adulthood: no Secondary Osteoporosis: 1. Type 1 Diabetes: no 2. Hyperthyroidism: no 3. Menopause before 45: yes 4. Malnutrition: no 5. Chronic liver disease: no Rheumatoid Arthritis: no Current Tobacco Use: no RISK FACTORS HISTORY OF: Surgery to Spine/Hip(right/left)/Wrist (right/left): l-spine When: 1970 Family History of Osteoporosis: yes Active: yes Diet low in dairy products/other sources of calcium: yes Postmenopausal woman: 1981 Lost more than 2 inches in height since high school: no Frequent falls: yes MEDICATIONS: omeprazole, citalopram, nitroglycerol, isosorbrmono, Ditropan, tizanidine Thyroid Medications: thyroid How Long: since 1959 Additional History: EXAM MEASUREMENTS: Bone mineral densitometry was performed using the AQUA PURE System. Bone mineral density about the R hip (g/cm2): 0.857 Bone mineral density about the L hip (g/cm2): 0.832 T Score values are as follows: -----R Neck: -1.3 -----L Neck: -1.5 -----R Total: -0.4 -----L Total: -0.6 Bone mineral density has: decreased -5.9 % since study of: 08.29.2011 IMPRESSION: No evidence for osteoporosis or osteopenia. NOTE: T-SCORE=SD OF THE YOUNG ADULT MEAN.
== END | disposition home or self-care (01) ==
LOC: RADBDWWP 09:15
PROVIDERS: ATTEND Family Medicine
DX: Z78.0 Asymptomatic menopausal state (principal)
CPT/HCPCS: 77080

== ENCOUNTER 2018-03-06 08:15 | Emergency (ER) | payer MEDICARE, OTHER ==
--- NOTE | 2018-03-06 08:41 | ED ---
Fall HPI - General Chief Complaint: Fall Stated Complaint: Fell facial injury Time Seen by Provider: 03/06/18 08:26 Source: patient, RN notes reviewed Mode of arrival: wheelchair Limitations: no limitations - History of Present Illness Initial Comments: This is a 72-year-old female presents emergency Department chief complaint of a fall. Patient states she fell on . She states that she went outside without her knee brace on her left knee and states that her knee gave out causing her to fall. She did strike her head on the concrete. Patient states that she did not lose consciousness but she had a large hematoma. She states that she also injured her right wrist and which there is bruising noted. She denies any neck, back or any other extremity injury. Patient states that she is concerned that she woke up night and could not feel her left eye because of the swelling she's had to has improved now and she has no blurred vision or double vision. Patient has a mild headache denies any dizziness, chest pain, shortness breath, fever, chills. - Related Data Home Medications Medication Instructions Recorded Confirmed Levothyroxine Sodium [Synthroid] 75 mcg PO DAILY 02/10/14 01/29/18 Nitroglycerin Sl Tabs [Nitrostat] 0.4 mg SUBLINGUAL Q5M PRN 02/10/14 01/29/18 Cholecalciferol [Vitamin D3] 2,000 unit PO DAILY 06/13/15 01/29/18 Citalopram Hydrobromide [CeleXA] 20 mg PO DAILY 10/21/16 01/29/18 [place]-3 Fatty Acids/Fish Oil [Fish 1 cap PO DAILY 10/21/16 01/29/18 Oil 1,000 mg Softgel] Magnesium Citrate 125 mg PO DAILY 11/14/17 01/29/18 Oxybutynin Chloride [Ditropan XL] 10 mg PO DAILY 11/14/17 01/29/18 Isosorbide Mononitrate ER [Imdur] 30 mg PO DAILY 01/29/18 01/29/18 Methocarbamol [Robaxin] 750 mg PO BID PRN 01/29/18 01/29/18 Naproxen [Naprosyn] 500 mg PO BID 01/29/18 01/29/18 Omeprazole [PriLOSEC] 40 mg PO DAILY 01/29/18 01/29/18 Sodium Fluoride [Fluoride] 1 mg PO DAILY 01/29/18 01/29/18 methylPREDNISolone Dose Pack See Taper PO DIRECTED 01/29/18 01/29/18 [Medrol Dose Pack] Previous Rx's Medication Instructions Recorded traMADol HCl [Ultram] 50 mg PO Q6H PRN #12 tab 01/26/18 Gabapentin [Neurontin] 300 mg PO BID #30 cap 02/02/18 Allergies Allergy/AdvReac Type Severity Reaction Status Date / Time cat pelt standardized Allergy Unknown Verified 03/06/18 08:25 allergenic ex clindamycin Allergy Rash/Hives Verified 03/06/18 08:25 atorvastatin calcium AdvReac LEG CRAMPS Verified 03/06/18 08:25 [From Lipitor] morphine AdvReac Nausea & Verified 03/06/18 08:25 Vomiting niacin AdvReac LEG CRAMPS Verified 03/06/18 08:25 Review of Systems ROS Statement: Those systems with pertinent positive or pertinent negative responses have been documented in the HPI. ROS Other: All systems not noted in ROS Statement are negative. Past Medical History Past Medical History: Chest Pain / Angina, GERD/Reflux, Hyperlipidemia, Hypertension, Osteoarthritis (OA), Skin Disorder, Thyroid Disorder Additional Past Medical History / Comment(s): Hx. pancreatitis with pancreatic cysts- monitoring, psoriasis lt ankle, angina, vitamin D deficiency, degenerative disc disease of the lumbar spine and cervical spine status post multiple back/neck sx pt states unable to lift anything over 10# or stand for long periods of time..diverticulitis, bronchits,lt lung nodule dr watching.past uterin fibroids. falls, using walker when up History of Any Multi-Drug Resistant Organisms: MRSA Date of last positivie culture/infection: 2013 in [facility] MDRO Source:: spider bite on lt leg Past Surgical History: Adenoidectomy, Back Surgery, Bowel Resection, Cholecystectomy, Hysterectomy, Orthopedic Surgery, Tonsillectomy Additional Past Surgical History / Comment(s): Anterior cervical discectomy with fusion(toal 3 sx has wire in neck) , lumbar fusion 3-screws in back, R hip surgery, left 1st rib removal r/t thoracic outlet syndrome, hiatal hernia surg., recent EGD/colonoscopy, hysterectomy, cholecystectomy,bilateral cataract surgery with lens implant.lt elbow tendon release,sx on gums d/t infection, dental implant Past Anesthesia/Blood Transfusion Reactions: No Reported Reaction Additional Past Anesthesia/Blood Transfusion Reaction / Comment(s): blood transfusion in 1970-no reaction Past Psychological History: No Psychological Hx Reported Smoking Status: Never smoker Past Alcohol Use History: None Reported Past Drug Use History: None Reported - Past Family History Father History Unknown: Yes Family Medical History: Coronary Artery Disease (CAD) Additional Family Medical History / Comment(s): aortic aneurysm at 72 Mother Family Medical History: CVA/TIA Brother(s) Family Medical History: No Reported History Sister(s) Family Medical History: Vascular Disorder Son(s) Family Medical History: No Reported History Daughter(s) Family Medical History: Unable to Obtain General Exam Limitations: no limitations General appearance: alert, in no apparent distress Head exam: Present: atraumatic, normocephalic, normal inspection Eye exam: Present: PERRL, EOMI, periorbital swelling (Left with ecchymosis), periorbital tenderness (Left superior aspect). Absent: normal appearance, scleral icterus, conjunctival injection ENT exam: Present: normal exam, normal oropharynx, mucous membranes moist, TM's normal bilaterally, normal external ear exam Neck exam: Present: normal inspection, full ROM. Absent: tenderness, meningismus, lymphadenopathy Respiratory exam: Present: normal lung sounds bilaterally. Absent: respiratory distress, wheezes, rales, rhonchi, stridor Cardiovascular Exam: Present: regular rate, normal rhythm, normal heart sounds. Absent: systolic murmur, diastolic murmur, rubs, gallop, clicks Extremities exam: Present: other (Right wrist there is mild ecchymosis, tenderness with palpation mild discomfort with range of motion neurovascular intact there is no hand tenderness) Back exam: Present: full ROM. Absent: tenderness, muscle spasm, paraspinal tenderness, vertebral tenderness Neurological exam: Present: alert, oriented X3, CN II-XII intact, reflexes normal, other (Finger to nose intact bilaterally without overshooting). Absent : motor sensory deficit Skin exam: Present: warm, dry, intact, normal color. Absent: rash Course Vital Signs 03/06/18 08:20 Temperature 97.7 F Pulse Rate 62 Respiratory 18 Rate Blood Pressure 135/64 O2 Sat by Pulse 97 Oximetry Medical Decision Making - Medical Decision Making 72-year-old female presents from for chief complaint of fall. Patient has some ecchymosis noted to the left periorbital region. CT was performed there is no acute fracture or intracranial bleed. Patient had x-ray of her right wrist which is negative for acute fracture. Patient has a facial contusion, right wrist sprain. Return parameters were discussed. Disposition Clinical Impression: Fall, Facial contusion, Wrist sprain, Head injury Disposition: HOME SELF-CARE Condition: Stable Instructions: Facial Contusion (ED), Head Injury (ED) Additional Instructions: Please return to the Emergency Department if symptoms worsen or any other concerns. Is patient prescribed a controlled substance at d/c from ED?: No Referrals: Roxanna Lozano MD [Primary Care Provider] - 1-2 days Time of Disposition: 10:16
--- NOTE | 2018-03-06 09:41 | XR ---
EXAMINATION TYPE: XR wrist complete RT DATE OF EXAM: 03/06/2018 CLINICAL HISTORY: pain TECHNIQUE: Frontal, lateral and oblique images of the right wrist are obtained. Navicular view also obtained. COMPARISON: None. FINDINGS: There is no acute fracture/dislocation evident. The joint spaces appear within normal limits. The o verlying soft tissue appears unremarkable. IMPRESSION: There is no acute fracture or dislocation seen. ICD 10 NO FRACTURE, INITIAL EVALUATION
--- NOTE | 2018-03-06 09:50 | CT ---
EXAMINATION TYPE: CT brain marlee chow con DATE OF EXAM: 03/06/2018 COMPARISON: NONE HISTORY: Fall, Lt eye swelling CT DLP: 1434.[address] of the brain was performed. The ventricles, basal cisterns and sulci overlying the cerebral convexities demonstrate mild enlargem ent. There is no evidence for intracranial hemorrhage or sulcal effacement. There is decreased attenuatio n about the periventricular white matter and deep white matter of both cerebral hemispheres, compatib le with chronic small vessel ischemia. No mass effects are seen. If symptoms persist consider MRI. Osseous calvarium is intact. IMPRESSION: 1. Age related atrophic and chronic small vessel ischemic change without acute intracranial process seen at this time. CT Cervical Spine: Unenhanced CT of the cervical spine was performed with bone and soft tissue window settings submitted . Coronal and sagittal reconstruction is obtained. There is normal alignment and prevertebral soft tissues. No evidence for acute cervical fracture . P ostoperative changes of fusion mid cervical spine. Scattered degenerative disc disease and spondylosi s. Biapical scarring. IMPRESSION: 1. No evidence for acute fracture or subluxation of the cervical spine.
[2018-03-06 10:26] VITALS: BP 161/66; PULSE 61; RESP 16; TEMP 97.2
== END 2018-03-06 10:27 | disposition home or self-care (01) ==
LOC: EC 08:15
DX: S63.501A Unspecified sprain of right wrist, initial encounter (principal); S00.12XA Contusion of left eyelid and periocular area, initial encounter; K21.9 Gastro-esophageal reflux disease without esophagitis; E07.9 Disorder of thyroid, unspecified; E55.9 Vitamin D deficiency, unspecified; M19.90 Unspecified osteoarthritis, unspecified site; M51.36 Other intervertebral disc degeneration, lumbar region; Z86.14 Personal history of Methicillin resistant Staphylococcus aureus infection; Z79.1 Long term (current) use of non-steroidal anti-inflammatories (NSAID); Z79.52 Long term (current) use of systemic steroids; Z79.899 Other long term (current) drug therapy; Z91.048 Other nonmedicinal substance allergy status; Z88.1 Allergy status to other antibiotic agents; Z88.8 Allergy status to other drugs, medicaments and biological substances; Z88.5 Allergy status to narcotic agent; W01.10XA Fall on same level from slipping, tripping and stumbling with subsequent striking against unspecified object, initial encounter
CPT/HCPCS: 70450; 72125; 99284

== ENCOUNTER → 2018-05-28 | Outpatient (CLI) | payer MEDICARE, OTHER ==
--- NOTE | 2018-05-28 16:46 | CT ---
EXAMINATION TYPE: CT abdomen pelvis w con DATE OF EXAM: 05/28/2018 HISTORY: Constipation and feeling full after eating small amounts. CT DLP: 1126mGycm Automated Exposure Control for Dose Reduction was Utilized. CONTRAST: CT scan of the abdomen and pelvis is performed with IV Contrast, patient injected with 100 mL of Isov ue M300. COMPARISON: CT abdomen and pelvis March 19, 2017 FINDINGS: LUNG BASES: There is redemonstration of 1.0 cm calcified subpleural left lower lobe nodule or granulo ma axial image 7. LIVER/GB: Cholecystectomy clips are redemonstrated. Liver is diffusely low dense consistent with fatt y infiltration. PANCREAS: Fairly stable low dense lesion uncinate process of pancreas measures 1.3 x 0.8 cm axial alisha ge 32 possible pseudocyst. SPLEEN: No significant abnormality is seen. ADRENALS: No significant abnormality is seen. KIDNEYS: No significant abnormality is seen. BOWEL: There is postsurgical change from Dylon fundoplication surgery redemonstrated near diaphragma tic hiatus with persistent small to moderate size hiatal hernia. Surgical sutures at sigmoid colon ax ial image 67 in the left pelvis are redemonstrated. Oral contrast reaches level of the hepatic flexur e. There is no suspicious small or large bowel dilatation. UTERUS/ADNEXA: Uterus is surgically absent. LYMPH NODES: No greater than 1cm abdominal or pelvic lymph nodes are appreciated. OSSEOUS STRUCTURES: Postsurgical change lumbosacral junction is redemonstrated. Slight grade 1 valeriy listhesis of L3 on L4 is redemonstrated. Facet arthropathy lower lumbar levels is again seen. OTHER: Mild calcified plaque of aorta extends into branch vessels. IMPRESSION: No significant new or acute finding is seen to account for patient's clinical symptoms. N o bowel obstruction is present.
== END | disposition home or self-care (01) ==
LOC: RADCTMAIN 14:22
PROVIDERS: ATTEND Family Medicine
DX: R68.81 Early satiety (principal)
CPT/HCPCS: 74177; Q9967

== ENCOUNTER → 2018-08-30 | Outpatient (CLI) | payer MEDICARE, OTHER ==
--- NOTE | 2018-08-30 11:22 | EST ---
EXERCISE STRESS DATE OF SERVICE: 08/30/2018 AGE: 73 SEX: Female HT: 5'0" WT: 150 pounds PROTOCOL: Cardiolite Dallin STAGE: I DURATION OF EXERCISE: 5 minutes 30 seconds HEART RATE REST: 58 BLOOD PRESSURE REST: 151/66 MAXIMUM HEART RATE ACHIEVED: 124 MAXIMUM BLOOD PRESSURE: 204/61 85% MPHR: 124 100% MPHR: 146 METS: 6.1 INDICATIONS: Chest pain. CLINICAL INFORMATION: Baseline rhythm is sinus mechanism, rate 58, normal axis and intervals, minor nonspecific ST-T wave changes. Baseline blood pressure 151/66 mmHg. Patient exercised on Dallin protocol for 5 minutes 30 seconds achieved peak rate of 124 beats per minute which is equal to 85% maximum predicted heart rate. Peak blood pressure are 204/61 mmHg. Test was terminated secondary to fatigue. Patient had mild chest discomfort and dyspnea at peak exercise. Electrocardiograph monitoring revealed occasional PVCs. There was no evidence of diagnostic ischemic ST deviation. Cardiolite was injected at peak exercise. CONCLUSION: 1. Good exercise tolerance with normal electrocardiograph response to exercise. 2. Chest discomfort at peak exercise of unclear etiology. 3. Nuclear images will be reported separately. MMODL / IJN: [id number] /
--- NOTE | 2018-08-30 13:04 | NM ---
EXAMINATION TYPE: NM stress cardiolite complete DATE OF EXAM: 08/30/2018 COMPARISON: 02/04/2016 HISTORY: Chest pain TECHNIQUE: After the intravenous administration of 9.87 mCi Tc 99m Sestamibi - Rest images obtained 45 minutes post injection. The patient exercised using a ELIZA protocol and 1 minute prior to peak exercise was injected with 25.2 mCi Tc 99m Sestamibi - Stress images obtained 10 minutes post injecti on. FINDINGS: Targeted heart rate was achieved during performance of the study. Review of stress and rest SPECT alisha ges demonstrates no distinct perfusion abnormality. Gated analysis shows normal wall motion with an estimated left ventricular ejection fraction of 73 %. IMPRESSION: No scintigraphic evidence for reversible ischemia
== END | disposition home or self-care (01) ==
LOC: RADNMMAIN 08:06
PROVIDERS: ATTEND Family Medicine
DX: R07.89 Other chest pain (principal)
CPT/HCPCS: 93017; 78452; A9500

== ENCOUNTER → 2018-09-01 | Outpatient (CLI) | payer MEDICARE, OTHER | END | disposition home or self-care (01) | LOC: LABWHC1 15:47 | PROVIDERS: ATTEND Physical Medicine & Rehabilitation | DX: N28.9 Disorder of kidney and ureter, unspecified (principal) | CPT/HCPCS: 36415; 82565; 84520 ==

== ENCOUNTER → 2018-09-22 | Outpatient (CLI) | payer MEDICARE, OTHER ==
--- NOTE | 2018-09-22 14:15 | CT ---
EXAMINATION TYPE: CT iac w con DATE OF EXAM: 09/22/2018 COMPARISON: 03/06/2018 CT brain HISTORY: left ear hearing loss. CT DLP: 150 mGycm Automated exposure control for dose reduction was used. CONTRAST: CT scan of the IACs is performed with IV Contrast, patient injected with 100 mL of Isovue 300. FINDINGS: There is cerumen impaction within the external auditory canal on the left. There is a thin linear opacity within Prussak's space on image 97 however there is no significant blunting of the scu nighat. The epitympanum, mesotympanum and hypotympanum are well aerated on the left. On the right there is soft tissue density within Prussak's space on image 86 with blunting of the scutum. This measures approximately 2 mm. Bilateral semicircular canals, vestibules, and internal auditory canals are symmetric and unremarkabl e. Right external auditory canal is patent. Mastoid air cells are well aerated bilaterally. Minimal m ucosal thickening is seen within the left maxillary sinus and ethmoid sinuses. Remaining visualized p aranasal sinuses are well aerated. Carotid canals are unremarkable. Porus acusticus demonstrate symme try bilaterally. Evaluation of the intracranial structures is limited given technique although there is presence of peripheral sulcal prominence likely on the basis of mild age-related volume loss. IMPRESSION: 1. On the right there is a 2 mm focal density within Prussak's space and slight blunting of the scutu m suspicious for a small cholesteatoma. 2. Cerumen impaction of the left external auditory canal. Otherwise unremarkable left IAC exam. 3. Minimal ethmoid and left maxillary mucosal thickening.
--- NOTE | 2018-09-22 14:27 | CT ---
EXAMINATION TYPE: CT soft tissue neck w con DATE OF EXAM: 09/22/2018 HISTORY: Neck mass COMPARISON: CT cervical spine dated March 06, 2018 CT DLP: 283.9 mGycm. Automated Exposure Control for Dose Reduction was Utilized. TECHNIQUE: CT scan of the neck is performed with IV Contrast, patient injected with 100 mL of Isovue 300, axial images are obtained, coronal and sagittal reformatted images are reviewed. FINDINGS: Airway: Fossa of Rosenmuller are unremarkable. Posterior nasopharynx is also unremarkable. Uvula, manjinder lecula, and piriform sinuses are unremarkable. There appears to be thickening of the false focal cord s that could relate to secretions along the false vocal cords. Parotid/submandibular glands: Parotid and submandibular glands are symmetric without identifiable les ion or surrounding inflammatory change. Carotid/Vascular Structures: There is a conventional three-vessel branch pattern of the aortic arch. No hemodynamically significant stenosis is seen in the common carotid arteries, carotid bulbs, or vis ualized portion of the internal carotid arteries. Osseous Structures: There are postsurgical changes of the posterior elements of the cervical spine wi th osseous fusion of C5-C7. Moderate multilevel degenerative disc disease of the cervical spine is se en. Osseous structures are grossly intact. Other: Lung apices are well aerated. No abnormal adenopathy of the neck is seen. No prevertebral soft tissue swelling is identified IMPRESSION: No suspicious mass is identified. There is slight thickening of the false vocal cords that could rela te to secretions. Direct visualization could be performed if there is further clinical concern.
== END | disposition home or self-care (01) ==
LOC: RADCTMAIN 10:48
PROVIDERS: ATTEND Otolaryngology
DX: J38.3 Other diseases of vocal cords (principal); H61.22 Impacted cerumen, left ear; K21.9 Gastro-esophageal reflux disease without esophagitis
CPT/HCPCS: 82565; 84520; 70481; 70491; 36415; Q9967

== ENCOUNTER → 2018-09-23 | Outpatient (CLI) | payer MEDICARE, OTHER ==
--- NOTE | 2018-09-23 12:58 | FL ---
ESOPHOGRAM. HISTORY: Dysphagia Esophagram was performed per the air contrast technique. The patient swallowed barium and effervesce nt crystals without difficulty or delay. Esophageal peristalsis and motility appear to be within normal limits. There is no evidence for filling defect, mass or diverticulum. Small reducible sliding type hiatal hernia noted. Subsequently single contrast cervical esophagram was performed which fails demonstrate evidence for a spiration penetration or mass. IMPRESSION: Small reducible sliding type hiatal hernia noted.
== END | disposition home or self-care (01) ==
LOC: RADFLWHC 09:56
PROVIDERS: ATTEND Otolaryngology
DX: K44.9 Diaphragmatic hernia without obstruction or gangrene (principal); K21.9 Gastro-esophageal reflux disease without esophagitis
CPT/HCPCS: 74220

== ENCOUNTER 2018-11-20 11:38 | Observation (INO) | payer MEDICARE, OTHER ==
[2018-11-20] MEDS ORDERED: NITROGLYCERIN SL TABS 0.4 MG TAB SUBLINGUAL STA ×3 (12:49)
[2018-11-20] MEDS ORDERED: ASPIRIN 81 MG PO STA (12:49)
--- NOTE | 2018-11-20 13:02 | ED ---
Chest Pain HPI - General Chief Complaint: Chest Pain Stated Complaint: chest pain Time Seen by Provider: 11/20/18 12:13 Source: patient, RN notes reviewed Mode of arrival: ambulatory Limitations: no limitations - History of Present Illness Initial Comments: Patient is a pleasant 73-year-old female presenting to the emergency Department with complaints of chest discomfort. Patient states she does frequently gets symptoms like this however today was worse than normal and more centralized in her chest. Discomfort is sharp. Patient did have some associated dyspnea and nausea earlier however none at this time. Patient did take one nitroglycerin with improvement of symptoms. Discomfort is currently 4-5/10. Patient is unclear if she has had a previous heart attack or not. Symptoms do worsen with exertion. No radiation. - Related Data Home Medications Medication Instructions Recorded Confirmed Levothyroxine Sodium [Synthroid] 75 mcg PO DAILY 02/10/14 11/20/18 Nitroglycerin Sl Tabs [Nitrostat] 0.4 mg SUBLINGUAL Q5M PRN 02/10/14 11/20/18 Cholecalciferol [Vitamin D3] 2,000 unit PO DAILY 06/13/15 11/20/18 [place]-3 Fatty Acids/Fish Oil [Fish 1 cap PO DAILY 10/21/16 11/20/18 Oil 1,000 mg Softgel] Omeprazole [PriLOSEC] 40 mg PO DAILY 01/29/18 11/20/18 Aspirin EC [Ecotrin Low Dose] 81 mg PO DAILY 11/20/18 11/20/18 Citalopram Hydrobromide [CeleXA] 40 mg PO DAILY 11/20/18 11/20/18 Docusate [Colace] 100 mg PO DAILY 11/20/18 11/20/18 Niacin 500 mg PO DAILY PRN 11/20/18 11/20/18 Allergies Allergy/AdvReac Type Severity Reaction Status Date / Time cat pelt standardized Allergy Unknown Verified 11/20/18 12:06 allergenic ex clindamycin Allergy Rash/Hives Verified 11/20/18 12:06 atorvastatin calcium AdvReac LEG CRAMPS Verified 11/20/18 12:06 [From Lipitor] morphine AdvReac Nausea & Verified 11/20/18 12:06 Vomiting niacin AdvReac LEG CRAMPS Verified 11/20/18 12:06 Review of Systems ROS Statement: Those systems with pertinent positive or pertinent negative responses have been documented in the HPI. ROS Other: All systems not noted in ROS Statement are negative. Constitutional: Denies: fever Eyes: Denies: eye pain ENT: Denies: ear pain Respiratory: Reports: as per HPI. Denies: cough Cardiovascular: Reports: as per HPI, chest pain Endocrine: Denies: fatigue Gastrointestinal: Reports: nausea. Denies: abdominal pain, vomiting Genitourinary: Denies: dysuria Musculoskeletal: Denies: back pain Skin: Denies: rash Neurological: Denies: weakness EKG Findings - EKG Comments: EKG Findings:: Sinus bradycardia 55. MN 198. QRS 72. QT 474. QTC 453. Normal axis. Normal QRS. No acute ST change. Past Medical History Past Medical History: Chest Pain / Angina, GERD/Reflux, Hyperlipidemia, Hypertension, Osteoarthritis (OA), Skin Disorder, Thyroid Disorder Additional Past Medical History / Comment(s): Hx. pancreatitis with pancreatic cysts- monitoring, psoriasis lt ankle, angina, vitamin D deficiency, degenerative disc disease of the lumbar spine and cervical spine status post multiple back/neck sx pt states unable to lift anything over 10# or stand for long periods of time..diverticulitis, bronchits,lt lung nodule dr watching.past uterin fibroids. falls, using walker when up hiatal hernia History of Any Multi-Drug Resistant Organisms: MRSA Date of last positivie culture/infection: 2013 in [facility] MDRO Source:: spider bite on lt leg Past Surgical History: Adenoidectomy, Back Surgery, Bowel Resection, Cholecystectomy, Hernia Repair, Hysterectomy, Orthopedic Surgery, Tonsillectomy Additional Past Surgical History / Comment(s): Anterior cervical discectomy with fusion(toal 3 sx has wire in neck) , lumbar fusion 3-screws in back, R hip surgery, left 1st rib removal r/t thoracic outlet syndrome, hiatal hernia surg., recent EGD/colonoscopy, hysterectomy, cholecystectomy,bilateral cataract surgery with lens implant.lt elbow tendon release,sx on gums d/t infection, dental implant Past Anesthesia/Blood Transfusion Reactions: No Reported Reaction Additional Past Anesthesia/Blood Transfusion Reaction / Comment(s): blood transfusion in 1970-no reaction Past Psychological History: No Psychological Hx Reported Smoking Status: Never smoker Past Alcohol Use History: None Reported Past Drug Use History: None Reported - Past Family History Father History Unknown: Yes Family Medical History: Coronary Artery Disease (CAD) Additional Family Medical History / Comment(s): aortic aneurysm at 72 Mother Family Medical History: CVA/TIA Brother(s) Family Medical History: No Reported History Sister(s) Family Medical History: Vascular Disorder Son(s) Family Medical History: No Reported History Daughter(s) Family Medical History: Unable to Obtain General Exam Limitations: no limitations General appearance: alert, in no apparent distress Head exam: Present: atraumatic Eye exam: Present: normal appearance, PERRL ENT exam: Present: normal oropharynx Neck exam: Present: normal inspection Respiratory exam: Present: normal lung sounds bilaterally. Absent: chest wall tenderness Cardiovascular Exam: Present: regular rate, normal rhythm Expanded Peripheral pulses: 2+: Radial (R), Radial (L), Posterior Tibialis (R), Posterior Tibialis (L), Dorsalis Pedis (R), Dorsalis Pedis (L) GI/Abdominal exam: Present: soft. Absent: tenderness Extremities exam: Present: normal inspection. Absent: pedal edema, calf tenderness Neurological exam: Present: alert Psychiatric exam: Present: normal affect, normal mood Skin exam: Present: normal color Course Vital Signs 11/20/18 11/20/18 11/20/18 11:52 12:27 13:00 Temperature 98.0 F Pulse Rate 60 52 L Respiratory 17 29 H 22 Rate Blood Pressure 109/71 125/69 O2 Sat by Pulse 97 98 Oximetry 11/20/18 11/20/18 14:00 15:00 Temperature Pulse Rate 51 L 52 L Respiratory 15 16 Rate Blood Pressure 122/64 120/59 O2 Sat by Pulse 96 96 Oximetry - Reevaluation(s) Reevaluation #1: 11/20/18 14:26 Chest x-ray shows no acute process. I did review the films. 11/20/18 15:05 Patient reevaluated and resting comfortably in bed. Patient and family updated on results and plan. Dr. Acosta has been paged for admission for Dr. Perez. Disposition Clinical Impression: Chest pain Disposition: ADMITTED IP TO THIS HOSP Is patient prescribed a controlled substance at d/c from ED?: No Referrals: Roxanna Lozano MD [Primary Care Provider] - 1-2 days Decision Time: 15:10
[2018-11-20 13:11] LABS: Basophils % (A) 1 %; Eosinophils # (A) 0.1 k/uL (0-0.7); Eosinophils % (A) 2 %; HCT 37.2 % (34.0-46.0); HGB 12.2 gm/dL (11.4-16.0); Lymphocytes # (A) 1.7 k/uL (1.0-4.8); Lymphocytes % (A) 24 %; MCHC 32.8 g/dL (31.0-37.0); MCV 88.6 fL (80.0-100.0); Mean Platelet Volume 6.9; Monocytes # (A) 0.4 k/uL (0-1.0); Monocytes % (A) 6 %; Neutrophils # (A) 4.7 k/uL (1.3-7.7); Neutrophils % (A) 66 %; Platelet Count 231 k/uL (150-450); RDW 13.6 % (11.5-15.5); WBC 7.1 k/uL (3.8-10.6)
[2018-11-20 13:19] LABS: INR 0.9 (<1.2); Prothrombin Time 10.1 sec (9.0-12.0)
[2018-11-20 13:22] LABS: Albumin 3.8 g/dL (3.5-5.0); Calcium 9.7 mg/dL (8.4-10.2); Magnesium 1.8 mg/dL (1.6-2.3); Potassium 4.3 mmol/L (3.5-5.1); Total Bilirubin 0.6 mg/dL (0.2-1.3); Total Protein 6.3 g/dL (6.3-8.2)
[2018-11-20 13:26] LABS: Partial Thromboplastin Time 21.9 sec (22.0-30.0)
--- NOTE | 2018-11-20 13:30 | XR ---
EXAMINATION TYPE: XR chest 2V DATE OF EXAM: 11/20/2018 COMPARISON: 11/14/2017 HISTORY: Shortness of breath TECHNIQUE: Frontal and lateral views of the chest are obtained. FINDINGS: Scattered senescent parenchymal changes noted. Hyperinflation compatible with COPD. No evidence for infiltrate. No evidence for atelectasis. Heart size is stable. Mediastinal structures are stable and grossly unremarkable. No evidence for hilar prominence. Degenerative changes dorsal spine. IMPRESSION: 1. No evidence for acute pulmonary disease.
[2018-11-20 13:34] LABS: Creatine Kinase 50 U/L (30-135)
[2018-11-20 13:45] LABS: Creatine Kinase MB 0.4 ng/mL (0.0-2.4); Troponin I <0.012 ng/mL (0.000-0.034)
[2018-11-20 14:15] LABS: Amylase <30 U/L (30-110); Lipase 107 U/L (23-300)
[2018-11-20] MEDS ORDERED: NITROGLYCERIN SL TABS 0.4 MG TAB SUBLINGUAL PRN (15:15)
[2018-11-20] MEDS: NITROGLYCERIN OINT 1 INCH/GM PACKET TOPICAL SCH (18:06)
[2018-11-20] MEDS ORDERED: ACETAMINOPHEN TAB 500 MG TAB PO PRN (18:12)
[2018-11-20] MEDS ORDERED: TEMAZEPAM 15 MG CAP PO PRN (18:12)
[2018-11-20] MEDS ORDERED: ALPRAZolam 0.25 MG TAB PO PRN (18:12)
[2018-11-20 19:30] LABS: Creatine Kinase 46 U/L (30-135)
[2018-11-20 19:44] LABS: Creatine Kinase MB 0.4 ng/mL (0.0-2.4); Troponin I <0.012 ng/mL (0.000-0.034)
[2018-11-20] MEDS ORDERED: traMADol 50 MG TAB PO PRN (20:25)
--- NOTE | 2018-11-20 22:25 | HP ---
HISTORY AND PHYSICAL CHIEF COMPLAINT: Chest pain. HISTORY OF PRESENT ILLNESS: This 73-year-old woman with a past medical history of multiple medical problems including history of GERD, hypertension, hyperlipidemia, history of DJD, history of back surgery, history of adenoidectomy, being followed by Dr. Lozano in the outpatient setting also had a hiatal hernia surgery apparently previously by Dr. Camara. Currently the patient is complaining of chest pain which is felt in the lower part of chest pain and also radiating upwards which was rather sharp in character and it was also associated with some dyspnea and some nausea. The patient came to [facility] and admitted to the hospital for further evaluation and treatment. Nitroglycerin did improve symptoms. The initial EKG did not show any acute abnormality. Creatinine is 1.15. Troponins are negative also. Cardiology evaluation in progress. PAST MEDICAL HISTORY: History of chest pain and angina, history of GERD , hypertension, hyperlipidemia , history of DJD, history of pancreatitis with pancreatic cyst, history of adenoidectomy. MEDICATIONS: Prior to admission include home medications are: 1. Ultram 50 mg daily p.r.n. 2. Niacin 500 mg. 3. Prilosec 40 mg daily. 4. Fish oil 1 p.o. daily. 5. Nitrostat 0.4 sublingual p.r.n. 6. Synthroid 75 mcg p.o. daily. 7. Colace 100 mg p.o. daily. 8. Celexa 40 mg. 9. Vitamin D3 2000 daily. 10.Ecotrin 81 mg p.o. daily. ALLERGIES: CAT, CLINDAMYCIN LIPITOR, MORPHINE, NIACIN. FAMILY HISTORY: History of coronary artery disease and aortic aneurysm in the family. SOCIAL HISTORY: No history of smoking. No history of alcohol intake. REVIEW OF SYSTEMS: ENT: No diminished hearing or vision. CARDIOVASCULAR: As mentioned earlier. RESPIRATORY: As mentioned earlier. GI no nausea or vomiting. : No dysuria. NERVOUS SYSTEM: No numbness or weakness. ALLERGY/IMMUNOLOGY: No asthma or hayfever. MUSCULOSKELETAL: As mentioned earlier. HEMATOLOGY/ONCOLOGY: No history of anemia. ENDOCRINE: No history of diabetes or hypothyroidism. CONSTITUTIONAL: As mentioned. Dermatology: Negative. Rheumatology: Negative. Psychiatry: As mentioned earlier. PHYSICAL EXAMINATION: Alert, oriented x3. Pulse 56, blood pressure 161/82, respiration 16, temperature 98.4, pulse ox 98% on room air. HEENT conjunctivae normal. Oral mucosa moist. Neck is no jugular venous distention. No carotid bruit. No lymph node enlargement. Cardiovascular system: S1, S2 muffled. Respiratory: Breath sounds diminished in the bases. No rhonchi. No crackles. ABDOMEN: Soft. Mild diffuse tenderness in the epigastrium. Otherwise, no guarding, no rigidity. No mass palpable. Legs: No edema. No swelling. NERVOUS SYSTEM: Higher functions as mentioned earlier. Moves all 4 limbs. No focal motor or sensory deficits. SKIN: No ulcer, rash or bleeding. Lymphatics: No lymph nodes palpable in the neck, axillae or groin. Joints: No active deforming arthropathy. LABS: CBC within normal limits. Sodium 136, creatinine 1.15. ASSESSMENT: 1. Chest pain possible unstable angina. 2. Possible GERD or hiatal hernia. 3. Increased creatinine with mild acute renal failure possibly prerenal renal failure. 4. Mild hyponatremia. 5. History of gastroesophageal reflux disease. 6. Hypertension. 7. Hyperlipidemia. 8. History of degenerative joint disease. 9. History of hypothyroidism. 10.History of pancreatitis with pancreatic pseudocyst. 11.History of vitamin D deficiency. 12.History of degenerative joint disease. 13.History of MRSA. 14.History of cholecystectomy. RECOMMENDATIONS AND DISCUSSION: In this 73-year-old woman who presented with multiple complex medical issues, we will monitor the patient closely. Continue the current medications, management and symptomatic treatment. Otherwise, at this time, I recommend resume the home medications. Cardiology consultation to rule out myocardial infarction. Otherwise, proton pump inhibitors. Guarded prognosis because of multiple complex medical issues. further recommendations to follow. Home medications are reconciled. MMODL / IJN: [id number] / MTDD
[2018-11-21 00:47] LABS: Creatine Kinase 49 U/L (30-135)
[2018-11-21] MEDS: NITROGLYCERIN OINT 1 INCH/GM PACKET TOPICAL SCH ×5 (00:55→23:19)
[2018-11-21 01:00] LABS: Creatine Kinase MB 0.5 ng/mL (0.0-2.4); Troponin I <0.012 ng/mL (0.000-0.034)
[2018-11-21] MEDS: LEVOTHYROXINE 75 MCG TAB PO SCH (04:50)
[2018-11-21 07:20] LABS: Basophils % (A) 1 %; Eosinophils # (A) 0.2 k/uL (0-0.7); Eosinophils % (A) 4 %; HGB 12.1 gm/dL (11.4-16.0); Lymphocytes # (A) 1.5 k/uL (1.0-4.8); Lymphocytes % (A) 37 %; MCH 29.5 pg (25.0-35.0); MCHC 32.6 g/dL (31.0-37.0); MCV 90.5 fL (80.0-100.0); Mean Platelet Volume 6.8; Monocytes # (A) 0.2 k/uL (0-1.0); Monocytes % (A) 5 %; Neutrophils # (A) 2.1 k/uL (1.3-7.7); Neutrophils % (A) 49 %; Platelet Count 215 k/uL (150-450); RBC 4.08 m/uL (3.80-5.40); RDW 13.7 % (11.5-15.5); WBC 4.2 k/uL (3.8-10.6)
[2018-11-21] MEDS ORDERED: PANTOPRAZOLE 40 MG TABLET PO SCH (07:30)
[2018-11-21 07:32] LABS: Calcium 9.2 mg/dL (8.4-10.2); Potassium 4.9 mmol/L (3.5-5.1)
[2018-11-21] MEDS ORDERED: ASPIRIN 325 MG TAB PO SCH (09:00)
--- NOTE | 2018-11-21 10:19 | P.CRDCN ---
History of Present Illness Consult date: 11/21/18 Requesting physician: Gerardo Acosta Consult reason: chest pain Chief complaint: Chest pain History of present illness: This is a pleasant 73-year-old female with history of borderline diabetes, hypotension, hyperlipidemia, states that she has taken statins in the past but developed severe muscle aching, anxiety, hypothyroidism, history of hiatal hernia for which she underwent surgery approximately a year ago. He presents to the hospital with symptoms of discomfort in her epigastric area , she also states that she had discomfort a little higher up on the sternal bone. Patient did take a sublingual nitroglycerin which she had been taking in the past for hiatal hernia, she states that normally gives her relief of symptoms but on this occasion it did not, for this reason she came in for further evaluation and treatment. Patient also states that she had multiple episodes of vomiting. Patient follows with Dr. Sherwood in the office. Patient did undergo cardiac cath in 2012, which did not reveal any obstructive coronary artery disease. She was instructed at that time to take sublingual nitroglycerin with the thought it may be vasospasm. She states that she most recently underwent a stress test in the office at the end of September or beginning of October which was reported to her to be normal. Her EKG on arrival here showed a sinus bradycardia with no acute changes. Chest x-ray did not reveal any acute changes. Blood pressure 119/70 with a heart rate in the 50s, 97% on room air. CBC is normal, sodium 137, potassium 4.9, BUN 20 and creatinine 1.1, magnesium 1.8. Troponins are negative 3. Cholesterol 202, LDL 120, HDL 62, triglycerides 98. Past Medical History Past Medical History: Chest Pain / Angina, GERD/Reflux, Hyperlipidemia, Hypertension, Osteoarthritis (OA), Skin Disorder, Thyroid Disorder Additional Past Medical History / Comment(s): Hx. pancreatitis with pancreatic cysts- monitoring, psoriasis lt ankle, angina, vitamin D deficiency, degenerative disc disease of the lumbar spine and cervical spine status post multiple back/neck sx pt states unable to lift anything over 10# or stand for long periods of time..diverticulitis, bronchits,lt lung nodule dr olamide.past uterin fibroids. falls, using walker when up hiatal hernia History of Any Multi-Drug Resistant Organisms: MRSA, Other MDRO Date of last positivie culture/infection: 2013 in [facility] MDRO Source:: spider bite on lt leg Past Surgical History: Adenoidectomy, Back Surgery, Bowel Resection, Cholecystectomy, Hernia Repair, Hysterectomy, Orthopedic Surgery, Tonsillectomy Additional Past Surgical History / Comment(s): Anterior cervical discectomy with fusion(toal 3 sx has wire in neck) , lumbar fusion 3-screws in back, R hip surgery, left 1st rib removal r/t thoracic outlet syndrome, hiatal hernia surg., recent EGD/colonoscopy, hysterectomy, cholecystectomy,bilateral cataract surgery with lens implant.lt elbow tendon release,sx on gums d/t infection, dental implant Past Anesthesia/Blood Transfusion Reactions: No Reported Reaction Additional Past Anesthesia/Blood Transfusion Reaction / Comment(s): blood transfusion in 1969-no reaction Past Psychological History: No Psychological Hx Reported Additional Psychological History / Comment(s): pt is a but lives with someone she has known for 35 years who is a . no home care services. has a walker and back brace Smoking Status: Never smoker Past Alcohol Use History: None Reported Past Drug Use History: None Reported - Past Family History Father History Unknown: Yes Family Medical History: Coronary Artery Disease (CAD) Additional Family Medical History / Comment(s): aortic aneurysm at 72 Mother Family Medical History: CVA/TIA Brother(s) Family Medical History: No Reported History Sister(s) Family Medical History: Vascular Disorder Son(s) Family Medical History: No Reported History Daughter(s) Family Medical History: Unable to Obtain Medications and Allergies Home Medications Medication Instructions Recorded Confirmed Type Levothyroxine Sodium [Synthroid] 75 mcg PO DAILY 02/10/14 11/20/18 History Nitroglycerin Sl Tabs [Nitrostat] 0.4 mg SUBLINGUAL Q5M PRN 02/10/14 11/20/18 History Cholecalciferol [Vitamin D3] 2,000 unit PO DAILY 06/13/15 11/20/18 History [place]-3 Fatty Acids/Fish Oil [Fish 1 cap PO DAILY 10/21/16 11/20/18 History Oil 1,000 mg Softgel] Omeprazole [PriLOSEC] 40 mg PO DAILY 01/29/18 11/20/18 History Aspirin EC [Ecotrin Low Dose] 81 mg PO DAILY 11/20/18 11/20/18 History Citalopram Hydrobromide [CeleXA] 40 mg PO DAILY 11/20/18 11/20/18 History Docusate [Colace] 100 mg PO DAILY 11/20/18 11/20/18 History Niacin 500 mg PO DAILY 11/20/18 11/20/18 History traMADol HCL [Ultram] 50 mg PO DAILY PRN 11/20/18 11/20/18 History Allergies Allergy/AdvReac Type Severity Reaction Status Date / Time cat pelt standardized Allergy Unknown Verified 11/20/18 12:06 allergenic ex clindamycin Allergy Rash/Hives Verified 11/20/18 12:06 atorvastatin calcium AdvReac LEG CRAMPS Verified 11/20/18 12:06 [From Lipitor] morphine AdvReac Nausea & Verified 11/20/18 12:06 Vomiting niacin AdvReac LEG CRAMPS Verified 11/20/18 12:06 Physical Exam Vitals: Vital Signs Temp Pulse Pulse Resp BP BP Pulse Ox 11/21/18 08:00 98.2 F 57 L 16 119/70 97 11/21/18 07:47 14 11/21/18 04:00 97.8 F 57 L 14 128/67 96 11/21/18 00:00 97.8 F 60 14 104/52 97 11/20/18 20:00 14 11/20/18 18:48 97.6 F 58 L 14 115/54 98 11/20/18 16:54 97.8 F 11/20/18 16:00 98.5 F 52 L 56 L 16 121/55 161/82 99 11/20/18 15:00 52 L 16 120/59 96 11/20/18 14:00 51 L 15 122/64 96 11/20/18 13:00 52 L 22 125/69 98 11/20/18 12:27 29 H 11/20/18 11:52 98.0 F 60 17 109/71 97 Intake and Output 11/20/18 11/21/18 11/21/18 22:59 06:59 14:59 Other: Voiding Method Toilet Toilet Toilet # Voids 2 2 PHYSICAL EXAMINATION: GENERAL: 73-year-old female in no acute distress at the time of my dictation HEENT: Head is atraumatic, normocephalic. Pupils equal, round. Sclera anicteric. Conjunctiva are clear. Mucous membranes of the mouth are moist. Neck is supple. There is no elevated jugular venous pressure. No carotid bruit is heard. HEART EXAMINATION: Heart S1, S2 normal. No murmur or gallop heard. CHEST EXAMINATION: Lungs are clear to auscultation and precussion. Positive chest wall tenderness is noted on palpation . ABDOMEN: Soft, nontender. Bowel sounds are heard. No organomegaly noted. EXTREMITIES: 2+ peripheral pulses with no evidence of peripheral edema and no calf tenderness noted. NEUROLOGIC patient is awake, alert and oriented 3 . . Results 11/21/18 06:57 11/21/18 06:57 Cardiac Enzymes 11/20/18 11/20/18 11/20/18 Range/Units 12:31 12:31 18:50 AST 25 (14-36) U/L CK-MB (CK-2) 0.4 0.4 (0.0-2.4) ng/mL Troponin I <0.012 <0.012 (0.000-0.034) ng/mL 11/20/18 Range/Units 23:54 AST (14-36) U/L CK-MB (CK-2) 0.5 (0.0-2.4) ng/mL Troponin I <0.012 (0.000-0.034) ng/mL Coagulation 11/20/18 Range/Units 12:31 PT 10.1 (9.0-12.0) sec APTT 21.9 L (22.0-30.0) sec Lipids 11/21/18 Range/Units 06:57 Triglycerides 98 (<150) mg/dL Cholesterol 202 H (<200) mg/dL HDL Cholesterol 62 H (40-60) mg/dL CBC 11/20/18 11/21/18 Range/Units 12:31 06:57 WBC 7.1 4.2 (3.8-10.6) k/uL RBC 4.20 4.08 (3.80-5.40) m/uL Hgb 12.2 12.1 (11.4-16.0) gm/dL Hct 37.2 37.0 (34.0-46.0) % Plt Count 231 215 (150-450) k/uL Comprehensive Metabolic Panel 11/20/18 11/21/18 Range/Units 12:31 06:57 Sodium 136 L 137 (137-145) mmol/L Potassium 4.3 4.9 (3.5-5.1) mmol/L Chloride 103 106 (98-107) mmol/L Carbon Dioxide 26 26 (22-30) mmol/L BUN 20 H 20 H (7-17) mg/dL Creatinine 1.15 H 1.15 H (0.52-1.04) mg/dL Glucose 94 100 H (74-99) mg/dL Calcium 9.7 9.2 (8.4-10.2) mg/dL AST 25 (14-36) U/L ALT 34 (9-52) U/L Alkaline Phosphatase 66 (38-126) U/L Total Protein 6.3 (6.3-8.2) g/dL Albumin 3.8 (3.5-5.0) g/dL Current Medications Generic Name Dose Route Start Last Admin Trade Name Freq PRN Reason Stop Dose Admin Acetaminophen 500 mg 11/20/18 18:12 Tylenol Tab PO Q6HR PRN Fever and/ or Pain Alprazolam 0.25 mg 11/20/18 18:12 Xanax PO TID PRN Anxiety Aspirin 325 mg 11/21/18 09:00 Aspirin PO DAILY [facility] Aspirin 81 mg 11/21/18 09:00 Aspirin PO DAILY [facility] Cholecalciferol 2,000 unit 11/21/18 09:00 Vitamin D3 PO DAILY [facility] Citalopram Hydrobromide 40 mg 11/21/18 09:00 Celexa PO DAILY [facility] Docusate Sodium 100 mg 11/21/18 09:00 Colace PO DAILY [facility] Levothyroxine Sodium 75 mcg 11/21/18 06:30 11/21/18 04:50 Synthroid PO Not Given DAILY@0630 [facility] Niacin 500 mg 11/21/18 09:00 Niacin Tr PO DAILY [facility] Nitroglycerin 1 inch 11/20/18 18:00 11/21/18 04:49 Nitro-Bid Oint TOPICAL Not Given Q6HR [facility] Nitroglycerin 0.4 mg 11/20/18 15:15 Nitrostat SUBLINGUAL Q5M PRN Chest Pain Fish Oil 1000mg 1 cap 11/21/18 09:00 PO DAILY [facility] Pantoprazole Sodium 40 mg 11/21/18 07:30 Protonix PO AC-BRKFST YULY Sodium Chloride 10 ml 11/20/18 21:00 11/21/18 01:08 Saline Flush IV 10 ml BID YULY Administration Temazepam 15 mg 11/20/18 18:12 Restoril PO HS PRN Insomnia Tramadol HCl 50 mg 11/20/18 20:25 Ultram PO DAILY PRN Pain Intake and Output 11/20/18 11/21/18 11/21/18 22:59 06:59 14:59 Other: Voiding Method Toilet Toilet Toilet # Voids 2 2 11/21/18 06:57 11/21/18 06:57 EKG Interpretations (text) EKG shows a sinus bradycardia with nonspecific ST-T wave changes Assessment and Plan Plan: Assessment and plan #1 chest pain, atypical for acute coronary syndrome, located in the midepigastric area, significant chest wall tenderness on palpation. Troponins are negative 3. EKG shows normal sinus rhythm with no acute changes. #2 hyperlipidemia, intolerant to Lipitor in the past. #3 borderline diabetes #4 history of hiatal hernia with prior repair year ago #5 prior heart cath in 2012 negative for obstructive CAD Plan We will obtain an echocardiogram with Doppler study. We will also obtain a copy of the stress test is performed in October of this year. Start the patient on Crestor. Obtain a vitamin D level. Plan for possible discharge home in 24 hours if stable. DNP note has been reviewed, I agree with a documented findings and plan of care. Patient was seen and examined.
[2018-11-21] MEDS: FISH OIL 1000MG PO SCH (10:28)
[2018-11-21] MEDS: NIACIN TR 500 MG CAPLET PO SCH (10:31)
[2018-11-21] MEDS: DOCUSATE 100 MG CAP PO SCH (10:31)
[2018-11-21] MEDS: PANTOPRAZOLE 40 MG TABLET PO SCH (10:31)
[2018-11-21] MEDS: CHOLECALCIFEROL 1,000 UNIT TAB PO SCH (10:32)
[2018-11-21] MEDS: ASPIRIN 81 MG PO SCH (10:32)
[2018-11-21] MEDS: CITALOPRAM HYDROBROMIDE 20 MG TAB PO SCH (10:32)
--- NOTE | 2018-11-21 16:23 | PN ---
PROGRESS NOTE DATE OF SERVICE: 11/21/2018 This 73 -year-old woman was admitted with chest pain and also had a possible hiatal hernia, GERD. Cardiology is following the patient closely. EXAM: Alert and oriented x2. Pulse 57, blood pressure 119/70, respirations 16, temperature 98.2, pulse ox 97% on room air. HEENT: Conjunctivae normal. NECK: No jugular venous distention. CARDIOVASCULAR: S1, S2 muffled. RESPIRATORY: Breath sounds diminished at the bases. Scattered rhonchi. Abdomen is soft, nontender. Nervous system: No focal deficits. LABS: Creatinine 1.15, glucose is 202, LDL is 120. ASSESSMENT: 1. Chest pain possible unstable angina possible gastroesophageal reflux disease. 2. History of hiatal hernia. 3. Increased creatinine with mild acute renal failure with acute renal failure. 4. Mild hyponatremia. 5. History of gastroesophageal reflux disease. 6. Hypertension. 7. Hyperlipidemia. 8. History of degenerative joint disease. 9. Hypothyroidism. 10.History of pancreatitis with a pancreatic pseudocyst. 11.History of vitamin D deficiency. 12.History of MRSA. 13.History of cholecystectomy. RECOMMENDATIONS AND DISCUSSION: Recommend to continue current medication, continue to monitor. Symptomatic treatment. Otherwise, continue to follow up closely with Cardiology. Proton pump inhibitors. Further recommendations to follow. MMODL / IJN: [id number] / MTDD
[2018-11-21 19:57] VITALS: RESP 18
[2018-11-22] MEDS: NITROGLYCERIN OINT 1 INCH/GM PACKET TOPICAL SCH (05:39)
[2018-11-22] MEDS: LEVOTHYROXINE 75 MCG TAB PO SCH (06:03)
[2018-11-22 06:05] LABS: Basophils # (A) 0.1 k/uL (0-0.2); Basophils % (A) 1 %; Eosinophils # (A) 0.2 k/uL (0-0.7); Eosinophils % (A) 4 %; HCT 37.5 % (34.0-46.0); HGB 12.3 gm/dL (11.4-16.0); Lymphocytes # (A) 2.1 k/uL (1.0-4.8); Lymphocytes % (A) 45 %; MCH 29.5 pg (25.0-35.0); MCHC 32.8 g/dL (31.0-37.0); MCV 89.9 fL (80.0-100.0); Mean Platelet Volume 6.2; Monocytes # (A) 0.3 k/uL (0-1.0); Monocytes % (A) 7 %; Neutrophils # (A) 1.9 k/uL (1.3-7.7); Neutrophils % (A) 41 %; Platelet Count 230 k/uL (150-450); RBC 4.17 m/uL (3.80-5.40); RDW 13.7 % (11.5-15.5); WBC 4.7 k/uL (3.8-10.6)
[2018-11-22 06:14] LABS: Calcium 9.4 mg/dL (8.4-10.2); Potassium 4.4 mmol/L (3.5-5.1)
[2018-11-22 06:59] VITALS: PULSE 59
[2018-11-22] MEDS: CITALOPRAM HYDROBROMIDE 20 MG TAB PO SCH (09:06)
[2018-11-22] MEDS: NIACIN TR 500 MG CAPLET PO SCH (09:06)
[2018-11-22] MEDS: DOCUSATE 100 MG CAP PO SCH (09:06)
[2018-11-22] MEDS: PANTOPRAZOLE 40 MG TABLET PO SCH (09:06)
[2018-11-22] MEDS: CHOLECALCIFEROL 1,000 UNIT TAB PO SCH (09:06)
[2018-11-22] MEDS: FISH OIL 1000MG PO SCH (09:06)
[2018-11-22] MEDS: ASPIRIN 81 MG PO SCH (09:06)
--- NOTE | 2018-11-22 11:12 | ECHOF ---
Referral Reason:chest pain MEASUREMENTS -------- HEIGHT: 152.4 cm WEIGHT: 68.9 kg BP: 104/59 RVIDd: 2.8 cm (< 3.3) IVSd: 1.0 cm (0.6 - 1.1) LVIDd: 3.6 cm (3.9 - 5.3) LVPWd: 1.0 cm (0.6 - 1.1) IVSs: 1.4 cm LVIDs: 2.6 cm LVPWs: 1.4 cm LA Diam: 2.9 cm (2.7 - 3.8) LAESV Index (A-L): 14.58 ml/m Ao Diam: 3.0 cm (2.0 - 3.7) AV Cusp: 2.0 cm (1.5 - 2.6) MV EXCURSION: 15.792 mm (> 18.000) MV EF SLOPE: 19 mm/s (70 - 150) EPSS: 0.6 cm MV E Fercho: 0.58 m/s MV DecT: 300 ms MV A Fercho: 0.86 m/s MV E/A Ratio: 0.67 AR PHT: 599 ms RAP: 5.00 mmHg RVSP: 15.73 mmHg FINDINGS -------- Sinus rhythm. This was a technically good study. The left ventricular size is normal. Left ventricular wall thickness is normal. Overall left vent ricular systolic function is normal with, an EF between 60 - 65 %. The right ventricle is normal in size. Normal LA size by volume 22+/-6 ml/m2. The right atrium is normal in size. The aortic valve is trileaflet and appears structurally normal. There is mild aortic regurgitation. Mild mitral regurgitation is present. Mild tricuspid regurgitation present. Right ventricular systolic pressure is normal at < 35 mmHg. Trace/mild (physiologic) pulmonic regurgitation. The aortic root size is normal. Normal inferior vena cava with normal inspiratory collapse consistent with estimated right atrial pre ssure of 5 mmHg. There is no pericardial effusion. CONCLUSIONS -------- 1. Sinus rhythm. 2. This was a technically good study. 3. The left ventricular size is normal. 4. Left ventricular wall thickness is normal. 5. Overall left ventricular systolic function is normal with, an EF between 60 - 65 %. 6. The right ventricle is normal in size. 7. Normal LA size by volume 22+/-6 ml/m2. 8. The right atrium is normal in size. 9. The aortic valve is trileaflet and appears structurally normal. 10. There is mild aortic regurgitation. 11. Mild mitral regurgitation is present. 12. Mild tricuspid regurgitation present. 13. Right ventricular systolic pressure is normal at < 35 mmHg. 14. Trace/mild (physiologic) pulmonic regurgitation. 15. The aortic root size is normal. 16. Normal inferior vena cava with normal inspiratory collapse consistent with estimated right atrial pressure of 5 mmHg. 17. There is no pericardial effusion. CORRECTIONS SERGEANT: Florencia Andino RDCS
--- NOTE | 2018-11-22 11:24 | P.PN ---
Subjective This is a pleasant 73-year-old female past medical history significant for dyslididemia, hypothyroidism, hiatal hernia and hypotension in the past. She follows in the office with Dr. Sherwood. In August of last year she underwent a Cardiolyte stress test that was normal, also in 2012 she underwent cardiac catheterization that revealed normal coronary arteries. Echocardiogram obtained reveals preserved left ventricular systolic function with ejection fraction 60-65%, mild aortic regurgitation and mild mitral regurgitation noted. She is seen and examined laying flat in bed in no acute distress. She denies any further symptoms of chest pain. Blood pressure 92/59 heart rate 59 afebrile maintaining oxygen saturation on room air. Laboratory data reviewed, WBC 4.7, hemoglobin 12.3, platelets 230, sodium 134, potassium 4.4, creatinine 1.16. Currently maintained on aspirin 81 mg daily and niacin. She states she is intolerant to stains in the past. GENERAL: Well-appearing, well-nourished and in no acute distress. NECK: Supple without JVD or thyromegaly. LUNGS: Breath sounds clear to auscultation bilaterally. Respiration equal and unlabored. No wheezes, rales or rhonchi. HEART: Regular rate and rhythm with systolic ejection murmur at the left sternal border, no rubs or gallops. S1 and S2 heard. EXTREMITIES: Normal range of motion, no edema. No clubbing or cyanosis. Peripheral pulses intact. ASSESSMENT Chest pain, atypical. An acute coronary event has been ruled out. Symptoms suggestive of possible reflux. Dyslipidemia, intolerant to statins in the past PLAN Echocardiogram has been obtained and reviewed. Stress test performed August 2018 is negative for reversible ischemia. Stable for discharge from cardiac perspective. Follow up with Dr. Sherwood in 2-3 weeks. Nurse Practitioner note has been reviewed, I agree with a documented findings and plan of care. Patient was seen and examined. Objective - Vital Signs Vital signs: Vital Signs Temp 98 F 11/22/18 06:58 Pulse 59 L 11/22/18 06:58 Resp 18 11/22/18 06:58 BP 92/59 11/22/18 06:58 Pulse Ox 97 11/22/18 06:58 Intake & Output 11/21/18 11/22/18 11/22/18 18:59 06:59 18:59 Other: Voiding Method Toilet Toilet # Voids 1 - Labs CBC & Chem 7: 11/22/18 05:37 11/22/18 05:37 Labs: Abnormal Lab Results - Last 24 Hours (Table) 11/22/18 Range/Units 05:37 Sodium 134 L (137-145) mmol/L BUN 19 H (7-17) mg/dL Creatinine 1.16 H (0.52-1.04) mg/dL Glucose 106 H (74-99) mg/dL
[2018-11-22 12:50] VITALS: BP 113/57; TEMP 98.4
--- NOTE | 2018-11-23 07:15 | DS ---
DISCHARGE SUMMARY FINAL DIAGNOSES: 1. Chest pain, possible unstable angina, possible gastroesophageal reflux disease. 2. History of hiatal hernia. 3. Increased creatinine with mild acute renal failure. 4. Mild hyponatremia. 5. History of gastroesophageal reflux disease. 6. Hypertension. 7. History of degenerative joint disease. 8. History of hypothyroidism. 9. History of pancreatitis with pancreatic cirrhosis. 10.History of vitamin D deficiency. 11.History of methicillin-resistant Staphylococcus aureus. 12.History of cholecystectomy. 13.Hyperlipidemia. DISCHARGE DISPOSITION: The patient will be discharged in stable condition with guarded prognosis. HISTORY OF PRESENT ILLNESS: This is a 73-year-old woman who was admitted with chest pain, myocardial infarction ruled out. Cardiology saw the patient. A 2D echo with Doppler was also done which showed no acute abnormality. Ejection fraction 60% to 65%. Recommend outpatient follow up. Patient apparently had many hiatal hernia, also On exam, vitals are stable. CARDIOVASCULAR SYSTEM: S1, S2. ABDOMEN: Soft. NERVOUS SYSTEMS: No focal deficits. FOLLOWUP: Follow up with Dr. Lozano in 2 to 3 days; follow up with Cardiology as recommended. MEDICATIONS: 1. Ecotrin 81 mg. 2. Vitamin D3 two thousand. 3. Celexa 40 mg daily. 4. Colace 100 mg daily. 5. Synthroid 75 mcg. 6. Niacin 500 mg. 7. Nitrostat 0.473 p.r.n. 8. Prilosec 40 mg daily. 9. [place]-3 fatty acid 1 p.o. daily. 10.Ultram 50 mg daily p.r.n. 11.Lipitor 10 mg p.o. q.h.s. Once again, the patient discharged in a stable condition with a guarded prognosis. Discontinue the Lipitor. MMODL / IJN: [id number] /
== END 2018-11-22 13:50 | disposition home or self-care (01) ==
LOC: EC 11:38 → 1SOBS 15:15
PROVIDERS: ADMIT Hospitalist; ATTEND Hospitalist
DX: R07.89 Other chest pain (principal); N17.9 Acute kidney failure, unspecified; E87.1 Hypo-osmolality and hyponatremia; K21.9 Gastro-esophageal reflux disease without esophagitis; I10 Essential (primary) hypertension; K86.89 Other specified diseases of pancreas; E07.9 Disorder of thyroid, unspecified; K86.3 Pseudocyst of pancreas; R11.0 Nausea; R06.00 Dyspnea, unspecified; E03.9 Hypothyroidism, unspecified; E55.9 Vitamin D deficiency, unspecified; E78.5 Hyperlipidemia, unspecified; M19.90 Unspecified osteoarthritis, unspecified site; L40.9 Psoriasis, unspecified; M51.36 Other intervertebral disc degeneration, lumbar region; K57.90 Diverticulosis of intestine, part unspecified, without perforation or abscess without bleeding; R91.1 Solitary pulmonary nodule; R73.03 Prediabetes; F41.9 Anxiety disorder, unspecified; R00.1 Bradycardia, unspecified; Z79.890 Hormone replacement therapy; Z79.82 Long term (current) use of aspirin; Z79.899 Other long term (current) drug therapy; Z88.1 Allergy status to other antibiotic agents; Z88.5 Allergy status to narcotic agent; Z88.8 Allergy status to other drugs, medicaments and biological substances; Z91.048 Other nonmedicinal substance allergy status; Z87.19 Personal history of other diseases of the digestive system; Z86.14 Personal history of Methicillin resistant Staphylococcus aureus infection; Z98.1 Arthrodesis status; Z90.49 Acquired absence of other specified parts of digestive tract; Z98.42 Cataract extraction status, left eye; Z98.41 Cataract extraction status, right eye; Z96.1 Presence of intraocular lens; Z91.81 History of falling; Z82.49 Family history of ischemic heart disease and other diseases of the circulatory system; Z82.3 Family history of stroke
CPT/HCPCS: 99285; 36415; 93005; 93306; 80061; 80053; 80048 ×2; 82150; 82550; 82553; 83690; 83735; 84484; 85025 ×3; 85610; 85730; 82306; 71046; G0378 ×3

== ENCOUNTER → 2018-12-03 | Outpatient (CLI) | payer MEDICARE, OTHER ==
--- NOTE | 2018-12-03 10:53 | CT ---
EXAMINATION TYPE: CT iac w con DATE OF EXAM: 12/03/2018 COMPARISON: 09/22/1980 CT HISTORY: increased left side hearing loss CT DLP: 214 mGycm Automated exposure control for dose reduction was used. CONTRAST: CT scan of the IACs is performed with IV Contrast, patient injected with 80 mL of Isovue 300. FINDINGS: The external auditory canals are patent bilaterally. Mastoid air cells show no evidence of abnormal opacification bilaterally. However, there is hypoaeration the mastoid air cells particularl y on the right suggestive of chronic mastoiditis. The middle ear ossicles are symmetric and unremarka ble. There is no evidence of suspicious surrounding soft tissue density to suggest cholesteatoma. The scutum is preserved bilaterally. The cochlea and the semicircular canals are symmetric and unrem arkable. Vestibular aqueduct and internal carotid canal appear unremarkable. Temporomandibular join ts are maintained bilaterally. Visualized intracranial structures are symmetric. Intraorbital structures have a normal appearance. V isualized paranasal sinuses are clear. Visualized nasopharynx and oropharynx symmetric. IMPRESSION: 1. Correlate for chronic mastoiditis. 2. No diagnostic evidence of cholesteatoma.
== END ==
LOC: RADCTMAIN 09:39
PROVIDERS: ATTEND Otolaryngology
DX: H71.92 Unspecified cholesteatoma, left ear (principal)
CPT/HCPCS: 82565; 84520; 70481; 36415; Q9967

== ENCOUNTER → 2018-12-08 | Outpatient (CLI) | payer MEDICARE, OTHER ==
--- NOTE | 2018-12-08 10:36 | FL ---
EXAMINATION TYPE: FL UGI w esophagus DATE OF EXAM: 12/08/2018 COMPARISON: CT abdomen pelvis May 28, 2018. Most recent esophagram September 23, 2018 HISTORY: History of Dylon fundoplication surgery roughly 2 years ago presents with recurrent epigast viktor pain and reflux-like symptoms suspected hiatal hernia. TECHNIQUE: A single contrast UGI study is performed due to history of prior surgery. A total of 32 s econds of fluoroscopic time was utilized during procedure. 47 images are saved. FINDINGS: Conference Director image of the abdomen shows overall nonobstructive bowel gas pattern. Cholecystectomy clips are redemonstrated including displaced clip into right pelvis. There are surgical change right L5 level redemonstrated. Surgical clips at gastroesophageal junction with sutures are again seen. The esophagus shows satisfactory motility and emptying into the stomach. There is cerclage wire in th e lower cervical spine redemonstrated. Recurrent small sliding-type hiatal hernia is redemonstrated w hich correlates with most recent esophagram. No significant gastroesophageal reflux seen during real- time performance of study. The stomach shows no large ulcer. Evaluation is suboptimal due to single contrast technique because of prior surgery. The duodenal bulb, sweep, and proximal small bowel loops are unremarkable. Ligament of Treitz normal in position. IMPRESSION: Small sliding-type hiatal hernia noted without significant change from most recent esopha gram.
== END ==
LOC: RADFLWHC 09:12
PROVIDERS: ATTEND Surgery
DX: K44.9 Diaphragmatic hernia without obstruction or gangrene (principal)
CPT/HCPCS: 74240

== ENCOUNTER → 2019-01-05 | Outpatient (CLI) | payer MEDICARE, OTHER ==
[2019-01-05 18:25] LABS: LDL Cholesterol,Calculated 79.2 mg/dL (0.0-131.0); VLDL Calculation 22.8 mg/dL (5.00-40.00)
== END ==
LOC: LABWHC1 09:58
PROVIDERS: ATTEND Nurse Practitioner Adult Health
DX: E78.2 Mixed hyperlipidemia (principal)
CPT/HCPCS: 36415; 80061; 84450; 84460

== ENCOUNTER → 2019-03-24 | Outpatient (CLI) | payer MEDICARE, OTHER ==
--- NOTE | 2019-03-29 09:35 | MM ---
Reason for exam: screening (asymptomatic). Last mammogram was performed 1 year and 3 months ago. History: Patient is postmenopausal. Family history of breast cancer in maternal cousin at age 38. Took estrogen for 1 year beginning at age 54. Physical Findings: A clinical breast exam by your physician is recommended on an annual basis and results should be correlated with mammographic findings. MG 3D Screening Mammo W/Cad Bilateral CC and MLO view(s) were taken. Prior study comparison: December 22, 2017, bilateral MG 3d screening mammo w/cad. November 21, 2016, bilateral MG 3d screening mammo w/cad. The breast tissue is heterogeneously dense. This may lower the sensitivity of mammography. Benign appearing bilateral calcifications. No suspicious abnormality. No significant changes when compared with prior studies. ASSESSMENT: Benign, BI-RAD 2 RECOMMENDATION: Routine screening mammogram of both breasts in 1 year.
== END | disposition home or self-care (01) ==
LOC: RADMAMWWP 12:02
PROVIDERS: ATTEND Family Medicine
DX: Z12.31 Encounter for screening mammogram for malignant neoplasm of breast (principal)
CPT/HCPCS: 77063; 77067

== ENCOUNTER → 2019-06-02 | Outpatient (CLI) | payer MEDICARE, OTHER ==
--- NOTE | 2019-06-02 17:48 | ECHOF ---
Referral Reason:R06.09 dyspnea MEASUREMENTS -------- HEIGHT: 152.4 cm WEIGHT: 73.5 kg BP: RVIDd: 2.6 cm (< 3.3) IVSd: 1.0 cm (0.6 - 1.1) LVIDd: 4.4 cm (3.9 - 5.3) LVPWd: 1.1 cm (0.6 - 1.1) IVSs: 1.4 cm LVIDs: 3.0 cm LVPWs: 0.9 cm LAESV Index (A-L): 35.43 ml/m Ao Diam: 2.5 cm (2.0 - 3.7) AV Cusp: 1.7 cm (1.5 - 2.6) LA Diam: 3.4 cm (2.7 - 3.8) MV E Fercho: 0.73 m/s MV DecT: 149 ms MV A Fercho: 0.69 m/s MV E/A Ratio: 1.05 AR PHT: 583 ms RAP: 5.00 mmHg RVSP: 25.05 mmHg FINDINGS -------- Sinus rhythm. This was a technically adequate study. The left ventricular size is normal. There is borderline concentric left ventricular hypertrophy. Overall left ventricular systolic function is normal with, an EF between 55 - 60 %. The diastolic filling pattern is normal for the age of the patient. The right ventricle is normal in size. Left atrium is moderately dilated by volume. The right atrial size is normal. Interatrial and interventricular septum intact. Aortic valve is trileaflet and is mildly thickened. There is [id number] aortic regurgitation. There is no evidence of aortic stenosis. Mild mitral annular calcification present. Moderate mitral regurgitation is present. Mild tricuspid regurgitation present. There is no evidence of pulmonary hypertension. The right v entricular systolic pressure, as measured by Doppler, is 25.05mmHg. Trace/mild (physiologic) pulmonic regurgitation. The aortic root size is normal. The inferior vena cava was not well visualized. There is no pericardial effusion. CONCLUSIONS -------- 1. Sinus rhythm. 2. This was a technically adequate study. 3. The left ventricular size is normal. 4. There is borderline concentric left ventricular hypertrophy. 5. Overall left ventricular systolic function is normal with, an EF between 55 - 60 %. 6. The diastolic filling pattern is normal for the age of the patient. 7. The right ventricle is normal in size. 8. Left atrium is moderately dilated by volume. 9. The right atrial size is normal. 10. Interatrial and interventricular septum intact. 11. Aortic valve is trileaflet and is mildly thickened. 12. There is [id number] aortic regurgitation. 13. There is no evidence of aortic stenosis. 14. Mild mitral annular calcification present. 15. Moderate mitral regurgitation is present. 16. Mild tricuspid regurgitation present. 17. There is no evidence of pulmonary hypertension. 18. The right ventricular systolic pressure, as measured by Doppler, is 25.05mmHg. 19. Trace/mild (physiologic) pulmonic regurgitation. 20. The aortic root size is normal. 21. The inferior vena cava was not well visualized. 22. There is no pericardial effusion. VP [employer]: Maddison Matias RDCS
== END | disposition home or self-care (01) ==
LOC: RADECHMAIN 13:28
PROVIDERS: ATTEND Family Medicine
DX: I08.3 Combined rheumatic disorders of mitral, aortic and tricuspid valves (principal)
CPT/HCPCS: 93306

== ENCOUNTER → 2019-08-09 | Outpatient (CLI) | payer MEDICARE, OTHER | LOC: CPPFTMAIN 08:15 | PROVIDERS: ATTEND Internal Medicine Critical Care Medicine | DX: J44.9 Chronic obstructive pulmonary disease, unspecified (principal); R94.2 Abnormal results of pulmonary function studies | CPT/HCPCS: 94060; 94726; 94729 ==

== ENCOUNTER 2019-08-10 13:07 | Day surgery (SDC) | payer MEDICARE, OTHER ==
[2019-08-08 08:55] VITALS: BMI 30.2
[~2019-08-10 13:07] MED LIST: LACTATED RINGERS 1,000 ML IV SCH; LIDOCAINE 1% 20 ML VIAL (10MG/ML) FOR IV START INTRADERMA PRN
[2019-08-10 13:43] VITALS: RESP 16; TEMP 97.7
[2019-08-10] MEDS ORDERED: fentaNYL (PF) 50 MCG/ML 2 ML AMP ONE (15:18)
[2019-08-10] MEDS ORDERED: PROPOFOL 10 MG/ML 20 ML VIAL IV ONE (15:18)
[2019-08-10] MEDS ORDERED: LIDOCAINE 1% INJ 10MG/ML (20 ML MDV) ONE (15:18)
[2019-08-10] MEDS ORDERED: MIDAZOLAM 2 MG/2 ML VIAL ONE (15:18)
--- NOTE | 2019-08-10 15:19 | P.GSHP ---
History of Present Illness H&P Date: 08/10/19 Chief Complaint: Gastritis This is a 74-year-old female she's had complaints of epigastric pain and gastritis. Patient rents today for EGD. Past Medical History Past Medical History: Chest Pain / Angina, GERD/Reflux, Hyperlipidemia, H ypertension, Osteoarthritis (OA), Skin Disorder, Thyroid Disorder Additional Past Medical History / Comment(s): HAS BEEN HAVING SOB WITH ACTIVITY SINCE APRIL. Hx. pancreatitis with pancreatic cysts-dr. williamson, psoriasis lt ankle, angina, vitamin D deficiency, degenerative disc disease of the lumbar spine and cervical spine status post multiple back/neck sx pt states unable to lift anything over 10# or stand for long periods of time..diverticulitis, bronchits,lt lung nodule dr olamide.past uterine fibroids. falls, using walker when up , hiatal hernia History of Any Multi-Drug Resistant Organisms: MRSA, Other MDRO Date of last positivie culture/infection: 2013 in [facility] MDRO Source:: spider bite on lt leg Past Surgical History: Adenoidectomy, Back Surgery, Bowel Resection, Cholecystectomy, Hernia Repair, Hysterectomy, Orthopedic Surgery, Tonsillectomy Additional Past Surgical History / Comment(s): Anterior cervical discectomy with fusion(toal 3 sx has wire in neck) , lumbar fusion 3-screws in back, R hip surgery, left 1st rib removal r/t thoracic outlet syndrome, hiatal hernia surg., recent EGD/colonoscopy, hysterectomy, cholecystectomy,bilateral cataract surgery with lens implant.lt elbow tendon release,sx on gums d/t infection, dental implant Past Anesthesia/Blood Transfusion Reactions: No Reported Reaction Additional Past Anesthesia/Blood Transfusion Reaction / Comment(s): blood transfusion in 1969-no reaction Smoking Status: Never smoker - Past Family History Father History Unknown: Yes Family Medical History: Coronary Artery Disease (CAD) Additional Family Medical History / Comment(s): aortic aneurysm at 72 Mother Family Medical History: CVA/TIA Brother(s) Family Medical History: No Reported History Sister(s) Family Medical History: Vascular Disorder Son(s) Family Medical History: No Reported History Daughter(s) Family Medical History: Unable to Obtain Medications and Allergies Home Medications Medication Instructions Recorded Confirmed Type Levothyroxine Sodium [Synthroid] 75 mcg PO DAILY 02/10/14 08/10/19 History Nitroglycerin Sl Tabs [Nitrostat] 0.4 mg SUBLINGUAL Q5M PRN 02/10/14 08/10/19 History Cholecalciferol [Vitamin D3 (25 2,000 unit PO DAILY 06/13/15 08/10/19 History Mcg = 1000 Iu)] [place]-3 Fatty Acids/Fish Oil [Fish 1 cap PO DAILY 10/21/16 08/10/19 History Oil 1,000 mg Softgel] Omeprazole [PriLOSEC] 40 mg PO DAILY 01/29/18 08/10/19 History Aspirin EC [Ecotrin Low Dose] 81 mg PO DAILY 11/20/18 08/10/19 History Citalopram Hydrobromide [CeleXA] 40 mg PO DAILY 11/20/18 08/10/19 History Docusate [Colace] 100 mg PO DAILY 11/20/18 08/10/19 History traMADol HCL [Ultram] 50 mg PO DAILY PRN 11/20/18 08/10/19 History Rosuvastatin Calcium 5 mg PO SUWE 08/08/19 08/10/19 History Allergies Allergy/AdvReac Type Severity Reaction Status Date / Time clindamycin Allergy Rash/Hives Verified 08/10/19 13:40 atorvastatin calcium AdvReac LEG CRAMPS Verified 08/10/19 13:40 [From Lipitor] morphine AdvReac Nausea & Verified 08/10/19 13:40 Vomiting Surgical - Exam Vital Signs Temp Pulse Resp BP Pulse Ox 97.7 F 61 16 152/70 93 L 08/10/19 13:41 08/10/19 13:41 08/10/19 13:41 08/10/19 13:41 08/10/19 13:41 - General well developed, well nourished, no distress - Eyes PERRL - ENT normal pinna - Neck no masses - Respiratory normal expansion - Cardiovascular Rhythm: regular - Abdomen Abdomen: soft, non tender Assessment and Plan Assessment: History of gastritis. We'll perform EGD.
[2019-08-10 15:56] VITALS: BP 144/74; PULSE 55
--- NOTE | 2019-08-23 17:01 | P.OP ---
Date of Procedure: 08/10/19 Preoperative Diagnosis: GERD Postoperative Diagnosis: Mild antral gastritis Esophageal biopsy pathology pending Procedure(s) Performed: EGD Anesthesia: MAC Surgeon: Deng Camara Pathology: other (Antrum, esophagus) Condition: stable Disposition: PACU Description of Procedure: The patient's placed on the endoscopy table in the lateral position. She received IV sedation. The gastroscope placed oropharynx and passed in the esophagus and into the stomach. The scope was then placed through the pylorus. The first and second portion of the duodenum appeared normal. Scope was then brought back the antrum and this was mildly inflamed. A biopsies performed. Scope was unretroflexed and remainder stomach appeared normal. There is no significant hiatal hernia. The GE junction was at 40 cm the distal esophagus appeared minimally inflamed a biopsies performed. The proximal esophagus. Normal. Scope withdrawn for patient.
== END 2019-08-10 16:19 | disposition home or self-care (01) ==
LOC: ORWHC2ENDO 13:07
PROVIDERS: ATTEND Surgery
DX: K29.70 Gastritis, unspecified, without bleeding (principal); K31.9 Disease of stomach and duodenum, unspecified; K21.9 Gastro-esophageal reflux disease without esophagitis; I25.10 Atherosclerotic heart disease of native coronary artery without angina pectoris; I10 Essential (primary) hypertension; E78.5 Hyperlipidemia, unspecified; E55.9 Vitamin D deficiency, unspecified; E07.9 Disorder of thyroid, unspecified; L40.9 Psoriasis, unspecified; M19.90 Unspecified osteoarthritis, unspecified site; Z79.82 Long term (current) use of aspirin; Z88.5 Allergy status to narcotic agent; Z88.1 Allergy status to other antibiotic agents; Z88.8 Allergy status to other drugs, medicaments and biological substances; Z79.899 Other long term (current) drug therapy; Z79.890 Hormone replacement therapy; Z87.19 Personal history of other diseases of the digestive system; Z98.890 Other specified postprocedural states; Z86.14 Personal history of Methicillin resistant Staphylococcus aureus infection; Z90.710 Acquired absence of both cervix and uterus; Z90.89 Acquired absence of other organs; Z90.49 Acquired absence of other specified parts of digestive tract; Z98.1 Arthrodesis status; Z98.41 Cataract extraction status, right eye; Z98.42 Cataract extraction status, left eye; Z82.49 Family history of ischemic heart disease and other diseases of the circulatory system
CPT/HCPCS: 88305; 43239; J2250; J2001; J3010; J2704

== ENCOUNTER → 2019-09-22 | Outpatient (CLI) | payer MEDICARE, OTHER ==
--- NOTE | 2019-09-22 10:01 | US ---
EXAMINATION TYPE: US abdomen complete DATE OF EXAM: 09/22/2019 COMPARISON: CT 05/28/18 CLINICAL HISTORY: R10.30 LOWER ABD PAIN. EXAM MEASUREMENTS: Liver Length: 14.7 cm Gallbladder Wall: Surgically absent cm CBD: 0.5 cm Spleen: 10.2 cm Right Kidney: 10.2 x 5.3 x 4.9 cm Left Kidney: 10.8 x 5.1 x 4.9 cm Pancreas: Tail, head obscured by overlying bowel gas Liver: There is increased echogenicity of the hepatic parenchyma with diminished visualization of th e portal triads most commonly relating to hepatic steatosis and limiting evaluation for underlying he patic masses. Gallbladder: Surgically absent Evidence for sonographic Gaitan's sign: No CBD: wnl Spleen: wnl Right Kidney: No hydronephrosis or masses seen Left Kidney: No hydronephrosis or masses seen Upper IVC: wnl Abd Aorta: wnl The intrahepatic portion of the IVC and proximal abdominal aorta are within normal limits. There is no evidence of cholelithiasis. Common bile duct is unremarkable. The visualized portions of the valencia creas are homogenous. The spleen is unremarkable. Kidneys are symmetric and free of hydronephrosis. No renal lesions are seen. IMPRESSION: Sonographic findings most commonly related to hepatic steatosis. Correlate with liver function tests.
--- NOTE | 2019-09-22 11:01 | US ---
EXAMINATION TYPE: US pelvic complete DATE OF EXAM: 09/22/2019 COMPARISON: CT 05/28/18 CLINICAL HISTORY: R10.30 LOWER ABD PAIN. TECHNIQUE: Transabdominal (TA). Transabdominal sonographic images of the pelvis were acquired. Date of LMP: Post menopausal. EXAM MEASUREMENTS: Uterus: Surgically absent cm Endometrial Stripe: Surgically absent cm Right Ovary: Surgically absent cm Left Ovary: Surgically absent cm 1. Uterus: Surgically absent 2. Endometrium: Surgically absent 3. Right Ovary: Surgically absent 4. Left Ovary: Surgically absent 5. Bilateral Adnexa: wnl, active bowel noted. 6. Posterior cul-de-sac: wnl, active bowel noted. Urinary bladder is suboptimally visualized and incompletely distended. IMPRESSION: Surgical absence of the ovaries and uterus. Bowel is seen within the adnexa. No suspiciou s mass is identified. Urinary bladder is incompletely distended.
== END | disposition home or self-care (01) ==
LOC: RADUSWWP 08:31
PROVIDERS: ATTEND Family Medicine
DX: N32.89 Other specified disorders of bladder (principal); Z90.710 Acquired absence of both cervix and uterus; Z90.722 Acquired absence of ovaries, bilateral
CPT/HCPCS: 76700; 76857

== ENCOUNTER → 2019-12-05 | Outpatient (CLI) | payer MEDICARE, OTHER ==
--- NOTE | 2019-12-05 15:42 | FL ---
EXAMINATION TYPE: FL UGI air w esophagus DATE OF EXAM: 12/05/2019 COMPARISON: Prior upper GI study August 22, 2015. HISTORY: Dysphasia. Discomfort near stomach after eating. TECHNIQUE: A double contrast UGI study is performed. Total of 52 seconds fluoroscopic time used for procedure. 61 spot images saved to PACS system. FINDINGS: Window Repairer image of the abdomen shows overall nonobstructive bowel gas pattern. Moderate proxim al colonic fecal stasis. Cholecystectomy clips. Surgical clips and sutures epigastric region from dhara or Dylon fundoplication surgery. Fixating screw right lumbosacral junction. Scattered pelvic phlebol iths. Surgical sutures overlie the pelvis. The esophagus shows satisfactory motility and emptying into the stomach. Some areas of fine nodular g ranular appearance mid to distal esophagus are present. There is recurrent small sized hiatal hernia. The stomach shows distensibility and peristalsis. Mild prominence of mucosal folds throughout is seen with more moderate to severe prominence in the fundus extending into the hiatal hernia . No evidence of any suspicious intraluminal mass or irregular pooled ulcer. Some gastroesophageal reflux was iden tified during real-time performance of study extending past the gregorio into the proximal aspect one t hird esophagus. The duodenal bulb, sweep, and proximal small bowel loops are unremarkable. IMPRESSION: Mild diffuse gastritis with more moderate to severe fundal gastritis extending into the s mall to moderate size recurrent hiatal hernia with mild to moderate gastroesophageal reflux to the pr oximal esophagus level and mild evidence of reflux esophagitis distal esophagus.
== END | disposition home or self-care (01) ==
LOC: RADUSWWP 14:15
PROVIDERS: ATTEND Surgery
DX: K44.9 Diaphragmatic hernia without obstruction or gangrene (principal); K21.0 Gastro-esophageal reflux disease with esophagitis; K29.70 Gastritis, unspecified, without bleeding
CPT/HCPCS: 74246

== ENCOUNTER → 2020-05-09 | Outpatient (CLI) | payer MEDICARE, OTHER ==
--- NOTE | 2020-05-09 16:40 | XR ---
EXAMINATION TYPE: XR Hip RT and AP Pelvis DATE OF EXAM: 05/09/2020 COMPARISON: Pelvic radiograph 01/30/2018. Bilateral hip radiograph 05/22/2011. Nuclear medicine bone sc anning 06/03/2011. HISTORY: Recent falls. Twisting. Pain of posterior right hip. Multiple spinal surgeries. TECHNIQUE: A single AP view of the pelvis is obtained. Two views of the right hip are obtained. FINDINGS: There is no acute fracture/dislocation evident in the pelvis. There is redemonstrated well-corticated osseous irregularity of the left iliac crest. The sacroiliac joints appear symmetric and unremarkab le. There is mild superior acetabular right hip joint space narrowing. Left hip normal. The overlying soft tissue appears unremarkable. Screw overlying the right L5 vertebral body likely facet fusion. R ight-sided surgical clips. Pelvic phleboliths. Two views of right hip show no acute fracture or dislocation. There is mild right superior acetabula r joint space narrowing. There is a redemonstrated 1 cm sclerotic lesion of the right proximal femora l diaphysis, unchanged versus 2011 radiograph with no activity on 2011 bone scan, most likely benign. No new focal lytic or sclerotic lesion seen in the proximal right femur. The overlying soft tissue is unremarkable. IMPRESSION: 1. No acute fracture or dislocation in the pelvis or right hip. 2. Mild right hip joint space narrowing.
--- NOTE | 2020-05-09 16:44 | XR ---
EXAMINATION TYPE: XR lumbar spine 2 or 3V DATE OF EXAM: 05/09/2020 CLINICAL HISTORY: Recent falls with twisting. Posterior right hip pain. History of multiple spinal rojas rgeries. TECHNIQUE: Frontal and lateral images of the lumbar spine obtained. COMPARISON: Lumbar radiograph 01/30/2018 FINDINGS: Screw overlying the right L5-S1 facet joint. L4-L5 and L5-S1 facet arthropathy. There is d isc space narrowing worst at L1-L2, L2-L3, and L5-S1. Sclerotic endplates of and L2. Multilevel anter ior osteophytic spurring. Grade 1 anterolisthesis of L3 on L4. There are 5 lumbar type vertebral bodi es identified. The lumbar spine shows satisfactory alignment without evidence of acute fracture or d islocation. Surgical clips. Vascular calcifications. Unchanged well-corticated osseous irregularity o f the left iliac crest. IMPRESSION: 1. No acute fracture or dislocation is seen in the lumbar spine. 2. Degenerative changes as above.
== END | disposition home or self-care (01) ==
LOC: RADXRMAIN 10:22
PROVIDERS: ATTEND Family Medicine
DX: M47.816 Spondylosis without myelopathy or radiculopathy, lumbar region (principal); M47.817 Spondylosis without myelopathy or radiculopathy, lumbosacral region; M25.851 Other specified joint disorders, right hip; M16.11 Unilateral primary osteoarthritis, right hip
CPT/HCPCS: 72100; 73502

== ENCOUNTER → 2020-05-23 | Outpatient (CLI) | payer MEDICARE, OTHER ==
[2020-05-23 18:04] LABS: Chol/HDL Ratio 2.29; LDL Cholesterol,Calculated 68.6 mg/dL (0.0-131.0); VLDL Calculation 20.4 mg/dL (5.00-40.00)
== END | disposition home or self-care (01) ==
LOC: LABWHC1 09:41
PROVIDERS: ATTEND Nurse Practitioner Adult Health
DX: E78.2 Mixed hyperlipidemia (principal)
CPT/HCPCS: 36415; 80061

== ENCOUNTER → 2020-07-03 | Outpatient (CLI) | payer MEDICARE, OTHER ==
--- NOTE | 2020-07-03 11:01 | MM ---
Reason for exam: screening (asymptomatic). Last mammogram was performed 1 year and 3 months ago. History: Patient is postmenopausal. Family history of breast cancer in maternal cousin at age 38. Took estrogen for 1 year beginning at age 54. Physical Findings: A clinical breast exam by your physician is recommended on an annual basis and results should be correlated with mammographic findings. MG 3D Screening Mammo W/Cad Bilateral CC and MLO view(s) were taken. Prior study comparison: March 24, 2019, bilateral MG 3d screening mammo w/cad. December 22, 2017, bilateral MG 3d screening mammo w/cad. The breast tissue is heterogeneously dense. This may lower the sensitivity of mammography. Benign appearing bilateral calcifications. No significant changes when compared with prior studies. ASSESSMENT: Benign, BI-RAD 2 RECOMMENDATION: Routine screening mammogram of both breasts in 1 year.
== END | disposition home or self-care (01) ==
LOC: RADMAMWWP 07:53
PROVIDERS: ATTEND Family Medicine
DX: Z12.31 Encounter for screening mammogram for malignant neoplasm of breast (principal)
CPT/HCPCS: 77063; 77067

== ENCOUNTER → 2020-11-27 | Outpatient (CLI) | payer MEDICARE ==
[2020-11-27 18:00] LABS: Chol/HDL Ratio 2.01; LDL Cholesterol,Calculated 70.6 mg/dL (0.0-131.0); VLDL Calculation 12.4 mg/dL (5.00-40.00)
[2020-11-27 18:01] LABS: Albumin 3.7 g/dL (3.80-4.90); Albumin/Globulin Ratio 1.68 (1.60-3.17); Anion Gap 6.7 mmol/L (4.00-12.00); BUN/Creat Ratio 26.67 Ratio (12.00-20.00); Calcium 9.6 mg/dL (8.7-10.3); Carbon Dioxide 29.3 mmol/L (21.6-31.8); Globulin 2.2 g/dL (1.6-3.3); Non-African American GFR(CKD) 62.1 (60.0-200.0); Potassium 3.8 mmol/L (3.5-5.5); Total Bilirubin 0.5 mg/dL (0.3-1.2); Total Protein 5.9 g/dL (6.2-8.2)
== END | disposition home or self-care (01) ==
LOC: LABWHC1 09:03
PROVIDERS: ATTEND Internal Medicine Interventional Cardiology
DX: E78.2 Mixed hyperlipidemia (principal)
CPT/HCPCS: 36415; 80053; 80061

== ENCOUNTER 2021-05-20 09:41 | Day surgery (SDC) | payer MEDICARE ==
[~2021-05-20 09:41] MED LIST changes: +LIDOCAINE 1% (10MG/ML) FOR IV START INTRADERMA PRN; -LIDOCAINE 1% 20 ML VIAL (10MG/ML) FOR IV START INTRADERMA PRN
[2021-05-20 12:05] VITALS: TEMP 97.4
[2021-05-20] MEDS ORDERED: LACTATED RINGERS 1,000 ML IV ONE (12:06)
[2021-05-20] MEDS ORDERED: PROPOFOL 10 MG/ML 20 ML VIAL IV ONE (12:48)
--- NOTE | 2021-05-20 12:54 | P.GSHP ---
History of Present Illness H&P Date: 05/20/21 Chief Complaint: Diarrhea Cyst 76-year-old female who's had complaints of chronic diarrhea. Patient presents today for colonoscopy. Past Medical History Past Medical History: Chest Pain / Angina, GERD/Reflux, Hyperlipidemia, Hypertension, Osteoarthritis (OA), Skin Disorder, Thyroid Disorder Additional Past Medical History / Comment(s): Hx. pancreatitis with pancreatic CYSTS. PSORIASISlt ankle. angina, vitamin D deficiency, degenerative disc disease of the CERIVAL AND lumbar spine unable to lift anything over 10# or stand for long periods of time. Diverticulitis. Bronchits. UTERINE fibroids. Falls. Hiatal hernia History of Any Multi-Drug Resistant Organisms: MRSA, Other MDRO Date of last positivie culture/infection: 2013 in [facility] MDRO Source:: spider bite on lt leg Past Surgical History: Adenoidectomy, Back Surgery, Bowel Resection, Cholecystectomy, Hernia Repair, Hysterectomy, Orthopedic Surgery, Tonsillectomy Additional Past Surgical History / Comment(s): Anterior cervical discectomy with fusion(toal 3 sx has wire in neck) , lumbar fusion 3-screws in back. R hip surgery(NOT A HIP REPLACEMENT). Left 1st rib removal r/t thoracic outlet syndrome. Hiatal hernia surg. Bilateral cataract surgery with lens implant Lt elbow tendon release. Sx on gums d/t infection. Dental implant Past Anesthesia/Blood Transfusion Reactions: No Reported Reaction Additional Past Anesthesia/Blood Transfusion Reaction / Comment(s): blood transfusion in 1969-no reaction Past Psychological History: No Psychological Hx Reported Additional Psychological History / Comment(s): pt is a but lives with someone she has known for 35 years who is a . no home care services. has a walker and back brace Smoking Status: Never smoker Past Alcohol Use History: None Reported Past Drug Use History: None Reported - Past Family History Father History Unknown: Yes Family Medical History: Coronary Artery Disease (CAD) Additional Family Medical History / Comment(s): aortic aneurysm at 72 Mother Family Medical History: CVA/TIA Brother(s) Family Medical History: No Reported History Sister(s) Family Medical History: Vascular Disorder Son(s) Family Medical History: No Reported History Daughter(s) Family Medical History: Unable to Obtain Medications and Allergies Home Medications Medication Instructions Recorded Confirmed Type Nitroglycerin Sl Tabs [Nitrostat] 0.4 mg SUBLINGUAL Q5M PRN 02/10/14 05/17/21 History Cholecalciferol [Vitamin D3 (25 2,000 unit PO DAILY 06/13/15 05/17/21 History Mcg = 1000 Iu)] Aspirin EC [Ecotrin Low Dose] 81 mg PO DAILY 11/20/18 05/17/21 History Rosuvastatin Calcium 5 mg PO SUWE 08/08/19 05/17/21 History Oxybutynin Chloride [Oxybutynin 10 mg PO QAM 05/17/21 05/17/21 History Chloride ER] amLODIPine [Norvasc] 2.5 mg PO QAM 05/17/21 05/17/21 History Allergies Allergy/AdvReac Type Severity Reaction Status Date / Time clindamycin Allergy Rash/Hives Verified 05/17/21 08:33 atorvastatin calcium AdvReac LEG CRAMPS Verified 05/17/21 08:33 [From Lipitor] morphine AdvReac Nausea & Verified 05/17/21 08:33 Vomiting Surgical - Exam Vital Signs Temp Pulse Resp BP Pulse Ox 97.4 F L 68 18 150/67 100 05/20/21 12:04 05/20/21 12:04 05/20/21 12:04 05/20/21 12:04 05/20/21 12:04 - General well developed, well nourished, no distress - Eyes PERRL - ENT normal pinna - Neck no masses - Respiratory normal expansion - Cardiovascular Rhythm: regular - Abdomen Abdomen: soft, non tender Assessment and Plan Assessment: Diarrhea. We'll perform colonoscopy
[2021-05-20 13:09] VITALS: RESP 16
--- NOTE | 2021-05-20 13:09 | P.OP ---
Date of Procedure: 05/20/21 Preoperative Diagnosis: Diarrhea Postoperative Diagnosis: Sigmoid colon polyp Rectal biopsy pathology pending Procedure(s) Performed: Colonoscopy Anesthesia: MAC Surgeon: Deng Camara Pathology: other (Sigmoid colon polyp, rectal biopsy) Condition: stable Disposition: PACU Description of Procedure: The patient's placed on the endoscopy table in the lateral position she received IV sedation. Digital rectal exam was performed which revealed no abnormalities. Flexible colonoscope is placed patient anus passed throughout the entire colon. The ileocecal valve was visualized. The cecum, ascending and transverse colon appeared normal. In the sigmoid colon was a few scattered diverticula. There was a peduncular polyp seen this removed with the cold forcep. Scope was then brought back the rectum. Due to the patient's symptoms of diarrhea a random rectal biopsy performed. There is no evidence of a significant colitis. Scope was withdrawn from patient.
[2021-05-20 13:23] VITALS: BP 126/82; PULSE 51
== END 2021-05-20 13:39 | disposition home or self-care (01) ==
LOC: ORWHC2ENDO 09:41
PROVIDERS: ATTEND Surgery
DX: R19.7 Diarrhea, unspecified (principal); D12.5 Benign neoplasm of sigmoid colon; K21.9 Gastro-esophageal reflux disease without esophagitis; E78.5 Hyperlipidemia, unspecified; I10 Essential (primary) hypertension; M19.90 Unspecified osteoarthritis, unspecified site; Z79.899 Other long term (current) drug therapy; Z88.1 Allergy status to other antibiotic agents; M50.30 Other cervical disc degeneration, unspecified cervical region; M51.36 Other intervertebral disc degeneration, lumbar region; K57.90 Diverticulosis of intestine, part unspecified, without perforation or abscess without bleeding; E55.9 Vitamin D deficiency, unspecified
CPT/HCPCS: 88305; 45380; J2704

== ENCOUNTER → 2021-06-04 | Outpatient (CLI) | payer MEDICARE ==
--- NOTE | 2021-06-04 16:43 | ECHOF ---
Referral Reason:R06.09 Other forms of dyspnea MEASUREMENTS -------- HEIGHT: 152.4 cm WEIGHT: 56.7 kg BP: IVSd: 1.2 cm (0.6 - 1.1) LVIDd: 3.2 cm (3.9 - 5.3) LVPWd: 1.2 cm (0.6 - 1.1) EDV(Teich): 40 ml IVSs: 1.5 cm LVIDs: 2.2 cm LVPWs: 1.6 cm %IVS Thck: 28 % ESV(Teich): 17 ml EF(Teich): 59 % %FS: 30 % SV(Teich): 24 ml RVIDd: 3.2 cm (< 3.3) LALs A4C: 4.2 cm LAAs A4C: 11.6 cm LAESV A-L A4C: 27 ml LAESV MOD A4C: 25 ml LALs A2C: 5.1 cm LAAs A2C: 16.3 cm LAESV A-L A2C: 45 ml LAESV MOD A2C: 43 ml LAESV(A-L): 38 ml LAESV Index (A-L): 24.99 ml/m Ao Diam: 2.7 cm (2.0 - 3.7) LA Diam: 3.5 cm (2.7 - 3.8) AV Cusp: 1.7 cm (1.5 - 2.6) EPSS: 1.1 cm MV E [place]: 0.58 m/s MV DecT: 192 ms MV Dec [place]: 3.0 m/s MV A [place]: 0.66 m/s MV E/A Ratio: 0.88 MV PHT: 56 ms LVOT Vmax: 1.01 m/s LVOT maxP.06 mmHg AV Vmax: 1.27 m/s AV maxP.43 mmHg AR Vmax: 4.28 m/s AR maxP.26 mmHg AR PHT: 614 ms AR Dec Time: 2117 ms AR Dec [place]: 2.0 m/s TR Vmax: 1.93 m/s TR maxP.92 mmHg RAP: 5.00 mmHg RVSP: 19.92 mmHg MV EF SLOPE: 74.80 mm/s (70 - 150) MV EXCURSION: 19.44 mm (> 18.000) FINDINGS -------- Sinus rhythm. This was a technically adequate study. The left ventricular size is normal. There is borderline concentric left ventricular hypertrophy. Overall left ventricular systolic function is normal with, an EF between 55 - 60 %. The diastolic filling pattern is normal for the age of the patient 7.14. The right ventricle is normal in size. Normal LA size by volume 22+/-6 ml/m2. The right atrial size is normal. Interatrial and interventricular septum intact. The aortic valve is trileaflet and appears structurally normal. There is mild aortic regurgitation. There is no evidence of aortic stenosis. Mild mitral regurgitation is present. Mild tricuspid regurgitation present. There is no evidence of pulmonary hypertension. The right v entricular systolic pressure, as measured by Doppler, is 19.92mmHg. Trace/mild (physiologic) pulmonic regurgitation. The aortic root size is normal. IVC Not well visulized. There is no pericardial effusion. CONCLUSIONS -------- 1. The left ventricular size is normal. 2. There is borderline concentric left ventricular hypertrophy. 3. Overall left ventricular systolic function is normal with, an EF between 55 - 60 %. 4. The diastolic filling pattern is normal for the age of the patient 7.14 5. There is mild aortic regurgitation. 6. Mild mitral regurgitation is present. 7. Mild tricuspid regurgitation present. 8. Trace/mild (physiologic) pulmonic regurgitation. RESEARCH AND DEVELOPMENT SPECIALIST: Florencia Andino RDCS
== END ==
LOC: RADECHMAIN 13:19
PROVIDERS: ATTEND Family Medicine
DX: I08.8 Other rheumatic multiple valve diseases (principal)
CPT/HCPCS: 93306

== ENCOUNTER 2021-06-29 17:54 | Inpatient (IN) | payer MEDICARE ==
[2021-06-29] MEDS ORDERED: SODIUM CHLORIDE 0.9% 1,000 ML IV STA (19:35)
[2021-06-29] MEDS ORDERED: ONDANSETRON 4 MG/2 ML VIAL IVP STA (19:35)
--- NOTE | 2021-06-29 19:37 | ED ---
Abdominal Pain HPI - General Chief Complaint: Abdominal Pain Stated Complaint: Abd Pain/Vomiting Time Seen by Provider: 06/29/21 19:05 Source: patient Mode of arrival: ambulatory Limitations: no limitations - History of Present Illness Initial Comments: 76-year-old female presents to emergency department with a chief complaint of abdominal pain. Patient reports she has been having difficulties with passing stool for the past month. States about 2 weeks ago she had a colonoscopy performed by and was found to have 2 polyps. Patient reports she was then discharged with lactulose for the constipation issues. States this was been working relatively okay but today she began to have nausea and multiple episodes of nonbloody is nonbloody vomiting. She also reports abdominal pain in the periumbilical region without any significant radiation. Surgical history of cholecystectomy. Denies any urinary or vaginal symptoms. Last bowel movement was yesterday. Denies any chest pain or shortness of breath. Denies any fevers but does report chills. - Related Data Home Medications Medication Instructions Recorded Confirmed Nitroglycerin Sl Tabs [Nitrostat] 0.4 mg SUBLINGUAL Q5M PRN 02/10/14 06/29/21 Cholecalciferol [Vitamin D3 (25 1,000 unit PO DAILY 06/13/15 06/29/21 Mcg = 1000 Iu)] Rosuvastatin Calcium 5 mg PO SUWE 08/08/19 06/29/21 amLODIPine [Norvasc] 2.5 mg PO DAILY 05/17/21 06/29/21 Lactulose 20 gm PO DAILY 06/29/21 06/29/21 Levothyroxine Sodium [Euthyrox] 75 mcg PO DAILY 06/29/21 06/29/21 calcium polycarbophiL [Fibercon] 625 mg PO DAILY 06/29/21 06/29/21 Allergies Allergy/AdvReac Type Severity Reaction Status Date / Time clindamycin Allergy Rash/Hives Verified 06/29/21 22:18 atorvastatin calcium AdvReac LEG CRAMPS Verified 06/29/21 22:18 [From Lipitor] morphine AdvReac Nausea & Verified 06/29/21 22:18 Vomiting Review of Systems ROS Statement: Those systems with pertinent positive or pertinent negative responses have been documented in the HPI. ROS Other: All systems not noted in ROS Statement are negative. Past Medical History Past Medical History: Chest Pain / Angina, GERD/Reflux, Hyperlipidemia, Hypertension, Osteoarthritis (OA), Skin Disorder, Thyroid Disorder Additional Past Medical History / Comment(s): Hx. pancreatitis with pancreatic CYSTS. PSORIASISlt ankle. angina, vitamin D deficiency, degenerative disc disease of the CERIVAL AND lumbar spine unable to lift anything over 10# or stand for long periods of time. Diverticulitis. Bronchits. UTERINE fibroids. Falls. Hiatal hernia History of Any Multi-Drug Resistant Organisms: MRSA, Other MDRO Date of last positivie culture/infection: 2013 in [facility] MDRO Source:: spider bite on lt leg Past Surgical History: Adenoidectomy, Back Surgery, Bowel Resection, Cholecystectomy, Hernia Repair, Hysterectomy, Orthopedic Surgery, Tonsillectomy Additional Past Surgical History / Comment(s): Anterior cervical discectomy with fusion(toal 3 sx has wire in neck) , lumbar fusion 3-screws in back. R hip surgery(NOT A HIP REPLACEMENT). Left 1st rib removal r/t thoracic outlet syndrome. Hiatal hernia surg. Bilateral cataract surgery with lens implant Lt elbow tendon release. Sx on gums d/t infection. Dental implant Past Anesthesia/Blood Transfusion Reactions: No Reported Reaction Additional Past Anesthesia/Blood Transfusion Reaction / Comment(s): blood transfusion in 1969-no reaction Past Psychological History: No Psychological Hx Reported Smoking Status: Never smoker Past Alcohol Use History: None Reported Past Drug Use History: None Reported - Past Family History Father History Unknown: Yes Family Medical History: Coronary Artery Disease (CAD) Additional Family Medical History / Comment(s): aortic aneurysm at 72 Mother Family Medical History: CVA/TIA Brother(s) Family Medical History: No Reported History Sister(s) Family Medical History: Vascular Disorder Son(s) Family Medical History: No Reported History Daughter(s) Family Medical History: Unable to Obtain General Exam Limitations: no limitations General appearance: alert, in no apparent distress Head exam: Present: atraumatic, normocephalic, normal inspection Eye exam: Present: normal appearance, PERRL, EOMI Pupils: Present: normal accommodation ENT exam: Present: normal exam, normal oropharynx, mucous membranes moist Neck exam: Present: normal inspection, full ROM. Absent: tenderness Respiratory exam: Present: normal lung sounds bilaterally. Absent: respiratory distress, wheezes, rales, rhonchi, stridor, chest wall tenderness Cardiovascular Exam: Present: regular rate, normal rhythm, normal heart sounds. Absent: systolic murmur GI/Abdominal exam: Present: soft, tenderness (Left lower quadrant tenderness). Absent: distended, guarding, rebound, rigid Extremities exam: Present: normal inspection, full ROM, normal capillary refill. Absent: tenderness, pedal edema, joint swelling Back exam: Present: normal inspection, full ROM. Absent: tenderness, CVA tenderness (R), CVA tenderness (L) Neurological exam: Present: alert, oriented X3 Psychiatric exam: Present: normal affect, normal mood Skin exam: Present: warm, dry, intact, normal color Course Vital Signs 06/29/21 06/29/21 18:35 20:29 Temperature 98 F Pulse Rate 58 L 61 Respiratory 18 20 Rate Blood Pressure 135/80 139/56 O2 Sat by Pulse 100 100 Oximetry Medical Decision Making - Medical Decision Making 76-year-old female presents to emergency department with a chief complaint of abdominal pain. On physical examination, left lower quadrant tenderness. Patient did have vomiting episode emergency department. Patient was given IV fluids, antiemetics. CBC shows leukocytosis of 17,000 which could be reactive secondary to the vomiting. CT of abdomen and pelvis reveals a proximal small bowel obstruction. Patient recommended that I speak to who is her surgeon. I spoke with him and he recommended inpatient admission with IV fluids and NG tube. Case discussed with Dr. Chawla - Lab Data Result diagrams: 06/29/21 19:52 06/29/21 19:52 Lab Results 06/29/21 06/29/21 06/29/21 Range/Units 19:52 19:52 19:52 WBC 17.1 H (3.8-10.6) k/uL RBC 4.26 (3.80-5.40) m/uL Hgb 13.1 (11.4-16.0) gm/dL Hct 37.9 (34.0-46.0) % MCV 89.1 (80.0-100.0) fL MCH 30.9 (25.0-35.0) pg MCHC 34.7 (31.0-37.0) g/dL RDW 13.6 (11.5-15.5) % Plt Count 308 (150-450) k/uL MPV 7.8 Neutrophils % 84 % Lymphocytes % 9 % Monocytes % 4 % Eosinophils % 0 % Basophils % 0 % Neutrophils # 14.5 H (1.3-7.7) k/uL Lymphocytes # 1.6 (1.0-4.8) k/uL Monocytes # 0.7 (0-1.0) k/uL Eosinophils # 0.0 (0-0.7) k/uL Basophils # 0.0 (0-0.2) k/uL Sodium 128 L (137-145) mmol/L Potassium 4.0 (3.5-5.1) mmol/L Chloride 94 L (98-107) mmol/L Carbon Dioxide 20 L (22-30) mmol/L Anion Gap 14 mmol/L BUN 17 (7-17) mg/dL Creatinine 0.76 (0.52-1.04) mg/dL Est GFR (CKD-EPI)AfAm 88 (>60 ml/min/1.73 sqM) Est GFR (CKD-EPI)NonAf 76 (>60 ml/min/1.73 sqM) Glucose 144 H (74-99) mg/dL Calcium 10.1 (8.4-10.2) mg/dL Total Bilirubin 0.7 (0.2-1.3) mg/dL AST 30 (14-36) U/L ALT 15 (4-34) U/L Alkaline Phosphatase 75 (38-126) U/L Troponin I <0.012 (0.000-0.034) ng/mL Total Protein 6.9 (6.3-8.2) g/dL Albumin 4.5 (3.5-5.0) g/dL Amylase 42 (30-110) U/L Lipase 85 (23-300) U/L Urine Color Urine Appearance (Clear) Urine pH (5.0-8.0) Ur Specific [place] (1.001-1.035) Urine Protein (Negative) Urine Glucose (UA) (Negative) Urine Ketones (Negative) Urine Blood (Negative) Urine Nitrite (Negative) Urine Bilirubin (Negative) Urine Urobilinogen (<2.0) mg/dL Ur Leukocyte Esterase (Negative) Urine RBC (0-5) /hpf Urine WBC (0-5) /hpf Ur Squamous Epith Cells (0-4) /hpf Amorphous Sediment (None) /hpf Urine Mucus (None) /hpf 06/29/21 Range/Units 21:50 WBC (3.8-10.6) k/uL RBC (3.80-5.40) m/uL Hgb (11.4-16.0) gm/dL Hct (34.0-46.0) % MCV (80.0-100.0) fL MCH (25.0-35.0) pg MCHC (31.0-37.0) g/dL RDW (11.5-15.5) % Plt Count (150-450) k/uL MPV Neutrophils % % Lymphocytes % % Monocytes % % Eosinophils % % Basophils % % Neutrophils # (1.3-7.7) k/uL Lymphocytes # (1.0-4.8) k/uL Monocytes # (0-1.0) k/uL Eosinophils # (0-0.7) k/uL Basophils # (0-0.2) k/uL Sodium (137-145) mmol/L Potassium (3.5-5.1) mmol/L Chloride (98-107) mmol/L Carbon Dioxide (22-30) mmol/L Anion Gap mmol/L BUN (7-17) mg/dL Creatinine (0.52-1.04) mg/dL Est GFR (CKD-EPI)AfAm (>60 ml/min/1.73 sqM) Est GFR (CKD-EPI)NonAf (>60 ml/min/1.73 sqM) Glucose (74-99) mg/dL Calcium (8.4-10.2) mg/dL Total Bilirubin (0.2-1.3) mg/dL AST (14-36) U/L ALT (4-34) U/L Alkaline Phosphatase (38-126) U/L Troponin I (0.000-0.034) ng/mL Total Protein (6.3-8.2) g/dL Albumin (3.5-5.0) g/dL Amylase (30-110) U/L Lipase (23-300) U/L Urine Color Light Yellow Urine Appearance Cloudy H (Clear) Urine pH 8.0 (5.0-8.0) Ur Specific [place] 1.031 (1.001-1.035) Urine Protein Trace H (Negative) Urine Glucose (UA) Trace H (Negative) Urine Ketones 2+ H (Negative) Urine Blood Negative (Negative) Urine Nitrite Negative (Negative) Urine Bilirubin Negative (Negative) Urine Urobilinogen <2.0 (<2.0) mg/dL Ur Leukocyte Esterase Negative (Negative) Urine RBC 2 (0-5) /hpf Urine WBC 2 (0-5) /hpf Ur Squamous Epith Cells 1 (0-4) /hpf Amorphous Sediment Few H (None) /hpf Urine Mucus Rare H (None) /hpf - EKG Data EKG Comments: Sinus bradycardia with first-degree AV block Symmetrical rate 58, AL 210, QRS 74, QTC 467. Disposition Clinical Impression: Small bowel obstruction Disposition: ADMITTED IP TO THIS HOSP Condition: Fair Is patient prescribed a controlled substance at d/c from ED?: No Referrals: Roxanna Lozano MD [Primary Care Provider] - 1-2 days Time of Disposition: 22:40
[2021-06-29 20:14] LABS: Basophils % (A) 0 %; Eosinophils % (A) 0 %; HCT 37.9 % (34.0-46.0); HGB 13.1 gm/dL (11.4-16.0); Lymphocytes # (A) 1.6 k/uL (1.0-4.8); Lymphocytes % (A) 9 %; MCH 30.9 pg (25.0-35.0); MCHC 34.7 g/dL (31.0-37.0); MCV 89.1 fL (80.0-100.0); Mean Platelet Volume 7.8; Monocytes # (A) 0.7 k/uL (0-1.0); Monocytes % (A) 4 %; Neutrophils # (A) 14.5 k/uL (1.3-7.7); Neutrophils % (A) 84 %; Platelet Count 308 k/uL (150-450); RBC 4.26 m/uL (3.80-5.40); RDW 13.6 % (11.5-15.5); WBC 17.1 k/uL (3.8-10.6)
[2021-06-29 20:46] LABS: Albumin 4.5 g/dL (3.5-5.0); Calcium 10.1 mg/dL (8.4-10.2); Total Bilirubin 0.7 mg/dL (0.2-1.3); Total Protein 6.9 g/dL (6.3-8.2)
--- NOTE | 2021-06-29 21:46 | CT ---
EXAMINATION TYPE: CT abdomen pelvis w con DATE OF EXAM: 06/29/2021 COMPARISON: 05/28/2018 HISTORY: constipation CT DLP: 662.5 mGycm Automated exposure control for dose reduction was used. CONTRAST: Performed with IV Contrast, patient injected with 100 mL of Isovue 300. Images obtained from the diaphragm to the floor the pelvis with IV contrast. Lung bases are clear of infiltrate. There is no pleural effusion. Heart size is normal. There is no p ericardial effusion. There is small hiatal hernia. There are clips at the gastroesophageal junction. Liver spleen stomach pancreas appear intact. Bile ducts are not dilated. There are clips from cholecy stectomy. Delayed images show normal renal excretion. There is no adrenal mass. There is normal contr ast opacification of the kidneys. There is no hydronephrosis. There is no retroperitoneal adenopathy. Ureters are not dilated. Bladder distends smoothly. There are multiple dilated small bowel loops in the upper abdomen. Distal small bowel is not dilated. Transition point not identified. Appendix is not seen. There is no sign of thickened appendix. The lumbar vertebra have fairly normal alignment. There is L3-4 4 mm anterior subluxation deformity. There is no lumbar compression fracture. The bony pelvis is intact. There is no evidence of free air. There is no ascites. There is no mesenteric edema. IMPRESSION: Dilated proximal small bowel suggestive of partial mechanical small bowel obstruction. This appears n ew compared to old exam.
[2021-06-29 22:15] LABS: Amorphous Sediment,Urine Few /hpf; Appearance,Urine Cloudy (Clear); Bilirubin,Urine Negative (Negative); Blood,Urine Negative (Negative); Color,Urine Light Yellow; Glucose,Urine (UA) Trace (Negative); Ketones,Urine 2+ (Negative); Leukocyte Esterase,Urine Negative (Negative); Mucus,Urine Rare /hpf; Nitrite,Urine Negative (Negative); Protein,Urine Trace (Negative); RBC,Urine 2 /hpf (0-5); Specific Gravity,Urine 1.031 (1.001-1.035); Squamous Epithelial Cell,Urine 1 /hpf (0-4); Urobilinogen,Urine <2.0 mg/dL (<2.0); WBC,Urine 2 /hpf (0-5)
[2021-06-29] MEDS ORDERED: NALOXONE 0.4 MG/ML 1 ML VIAL IV PRN (23:15)
[2021-06-29] MEDS ORDERED: ONDANSETRON 4 MG/2 ML VIAL IVP PRN (23:15)
[2021-06-30] MEDS: SODIUM CHLORIDE 0.9% 1,000 ML IV SCH ×2 (02:25→20:01)
[2021-06-30] MEDS ORDERED: HYDROmorphone 1 MG/ML 1 ML SYRINGE IVP PRN (11:11)
--- NOTE | 2021-06-30 11:14 | P.GSHP ---
History of Present Illness H&P Date: 06/30/21 Chief Complaint: Small bowel obstruction 76-year-old female came to the ER yesterday with complaints of abdominal pain. Patient states she underwent a colonoscopy one month ago. Began experiencing upper abdominal pain 2-3 days ago. He had a small bowel movement yesterday morning. She had episodes of nausea and vomiting in the ER. Patient says her pain is much improved currently. No history of similar events. Patient with history of chronic constipation. Underwent CT abdomen and pelvis which showed findings suggestive of small bowel obstruction or ileus. White blood cell count elevated at 17,000. Denies fevers. No sick contacts. - Review of Systems Comment: The patient denies any acute changes in vision or hearing, no dysphagia or odynophagia, no chest pain or shortness of breath, no dysuria or hematuria, no headache, no runny nose, no rectal bleeding or melena, no unexplained weight loss Past Medical History Past Medical History: Chest Pain / Angina, GERD/Reflux, Hyperlipidemia, Hypertension, Osteoarthritis (OA), Skin Disorder, Thyroid Disorder Additional Past Medical History / Comment(s): Hx. pancreatitis with pancreatic CYSTS. PSORIASISlt ankle. angina, vitamin D deficiency, degenerative disc disease of the CERIVAL AND lumbar spine unable to lift anything over 10# or stand for long periods of time. Diverticulitis. Bronchits. UTERINE fibroids. Falls. Hiatal hernia History of Any Multi-Drug Resistant Organisms: MRSA, Other MDRO Date of last positivie culture/infection: 2013 in [facility] MDRO Source:: spider bite on lt leg Past Surgical History: Adenoidectomy, Back Surgery, Bowel Resection, Cholecystectomy, Hernia Repair, Hysterectomy, Orthopedic Surgery, Tonsillectomy Additional Past Surgical History / Comment(s): Anterior cervical discectomy with fusion(toal 3 sx has wire in neck) , lumbar fusion 3-screws in back. R hip surgery(NOT A HIP REPLACEMENT). Left 1st rib removal r/t thoracic outlet syndrome. Hiatal hernia surg. Bilateral cataract surgery with lens implant Lt elbow tendon release. Sx on gums d/t infection. Dental implant Past Anesthesia/Blood Transfusion Reactions: No Reported Reaction Additional Past Anesthesia/Blood Transfusion Reaction / Comment(s): blood transfusion in 1970-no reaction Past Psychological History: No Psychological Hx Reported Additional Psychological History / Comment(s): lives alone, senior center, cane at times used Smoking Status: Never smoker Past Alcohol Use History: None Reported Past Drug Use History: None Reported - Past Family History Father History Unknown: Yes Family Medical History: Coronary Artery Disease (CAD) Additional Family Medical History / Comment(s): aortic aneurysm at 72 Mother Family Medical History: CVA/TIA Brother(s) Family Medical History: No Reported History Sister(s) Family Medical History: Vascular Disorder Son(s) Family Medical History: No Reported History Daughter(s) Family Medical History: Unable to Obtain Medications and Allergies Home Medications Medication Instructions Recorded Confirmed Type Nitroglycerin Sl Tabs [Nitrostat] 0.4 mg SUBLINGUAL Q5M PRN 02/10/14 06/29/21 History Cholecalciferol [Vitamin D3 (25 1,000 unit PO DAILY 06/13/15 06/29/21 History Mcg = 1000 Iu)] Rosuvastatin Calcium 5 mg PO SUWE 08/08/19 06/29/21 History amLODIPine [Norvasc] 2.5 mg PO DAILY 05/17/21 06/29/21 History Lactulose 20 gm PO DAILY 06/29/21 06/29/21 History Levothyroxine Sodium [Euthyrox] 75 mcg PO DAILY 06/29/21 06/29/21 History calcium polycarbophiL [Fibercon] 625 mg PO DAILY 06/29/21 06/29/21 History Allergies Allergy/AdvReac Type Severity Reaction Status Date / Time clindamycin Allergy Rash/Hives Verified 06/29/21 22:18 atorvastatin calcium AdvReac LEG CRAMPS Verified 06/29/21 22:18 [From Lipitor] morphine AdvReac Nausea & Verified 06/29/21 22:18 Vomiting Surgical - Exam Vital Signs Temp Pulse Resp BP Pulse Ox 98 F 58 L 18 135/80 100 06/29/21 18:35 06/29/21 18:35 06/29/21 18:35 06/29/21 18:35 06/29/21 18:35 Physical exam: General: Well-developed, well-nourished HEENT: Normocephalic, sclerae nonicteric Abdomen: Mild mid abdominal tenderness, nondistended Extremities: No edema Neuro: Alert and oriented Results - Labs 06/29/21 19:52 06/29/21 19:52 Abnormal Lab Results - Last 24 Hours (Table) 06/29/21 06/29/21 06/29/21 Range/Units 19:52 19:52 21:50 WBC 17.1 H (3.8-10.6) k/uL Neutrophils # 14.5 H (1.3-7.7) k/uL Sodium 128 L (137-145) mmol/L Chloride 94 L (98-107) mmol/L Carbon Dioxide 20 L (22-30) mmol/L Glucose 144 H (74-99) mg/dL Urine Appearance Cloudy H (Clear) Urine Protein Trace H (Negative) Urine Glucose (UA) Trace H (Negative) Urine Ketones 2+ H (Negative) Amorphous Sediment Few H (None) /hpf Urine Mucus Rare H (None) /hpf Diabetes panel 06/29/21 Range/Units 19:52 Sodium 128 L (137-145) mmol/L Potassium 4.0 (3.5-5.1) mmol/L Chloride 94 L (98-107) mmol/L Carbon Dioxide 20 L (22-30) mmol/L BUN 17 (7-17) mg/dL Creatinine 0.76 (0.52-1.04) mg/dL Glucose 144 H (74-99) mg/dL Calcium 10.1 (8.4-10.2) mg/dL AST 30 (14-36) U/L ALT 15 (4-34) U/L Alkaline Phosphatase 75 (38-126) U/L Total Protein 6.9 (6.3-8.2) g/dL Albumin 4.5 (3.5-5.0) g/dL Calcium panel 06/29/21 Range/Units 19:52 Calcium 10.1 (8.4-10.2) mg/dL Albumin 4.5 (3.5-5.0) g/dL Pituitary panel 06/29/21 Range/Units 19:52 Sodium 128 L (137-145) mmol/L Potassium 4.0 (3.5-5.1) mmol/L Chloride 94 L (98-107) mmol/L Carbon Dioxide 20 L (22-30) mmol/L BUN 17 (7-17) mg/dL Creatinine 0.76 (0.52-1.04) mg/dL Glucose 144 H (74-99) mg/dL Calcium 10.1 (8.4-10.2) mg/dL Adrenal panel 06/29/21 Range/Units 19:52 Sodium 128 L (137-145) mmol/L Potassium 4.0 (3.5-5.1) mmol/L Chloride 94 L (98-107) mmol/L Carbon Dioxide 20 L (22-30) mmol/L BUN 17 (7-17) mg/dL Creatinine 0.76 (0.52-1.04) mg/dL Glucose 144 H (74-99) mg/dL Calcium 10.1 (8.4-10.2) mg/dL Total Bilirubin 0.7 (0.2-1.3) mg/dL AST 30 (14-36) U/L ALT 15 (4-34) U/L Alkaline Phosphatase 75 (38-126) U/L Total Protein 6.9 (6.3-8.2) g/dL Albumin 4.5 (3.5-5.0) g/dL Assessment and Plan (1) Small bowel obstruction Narrative/Plan: 76-year-old female with small bowel obstruction. Apparently the ER spoke with Dr. Camara yesterday afternoon. She was admitted to his service. We'll recheck labs. Keep nasogastric tube to suction. Repeat abdominal x-rays tomorrow. Continue bowel rest. Current Visit: Yes Status: Acute Code(s): K56.609 - UNSP INTESTNL OBST, UNSP TO PARTIAL VERSUS COMPLETE OBST SNOMED Code(s): 247620007
[2021-06-30] MEDS: KETOROLAC 15 MG/ML 1 ML VIAL IVP SCH ×2 (12:18→16:59)
[2021-06-30] MEDS ORDERED: ENALAPRILAT 1.25 MG/ML 1 ML VIAL IVP PRN (12:33)
--- NOTE | 2021-06-30 15:50 | XR ---
EXAMINATION TYPE: XR chest 1V portable DATE OF EXAM: 06/30/2021 COMPARISON: 05/14/2020 HISTORY: Short of breath TECHNIQUE: FINDINGS: Heart and mediastinum are normal. Lungs are clear. Diaphragm is normal. There is small calc ified granuloma in the left lower lobe. There is nasogastric tube in the stomach. There are clips fro m cholecystectomy. IMPRESSION: No active cardiopulmonary disease. Normal heart. No change.
[2021-06-30] MEDS: HEPARIN SODIUM,PORCINE/PF 5,000 UNIT/0.5 ML SYRINGE SQ SCH (16:59)
[2021-06-30] MEDS: FAMOTIDINE 20 MG/2 ML VIAL IV SCH (20:00)
[2021-06-30] MEDS: PANTOPRAZOLE 40 MG/10 ML VIAL IVP SCH (20:00)
--- NOTE | 2021-06-30 21:19 | CONS ---
CONSULTATION DATE OF SERVICE: 06/30/2021 REASON FOR CONSULTATION: Advice regarding hypertension, hyperlipidemia and multiple medical issues, requested by Surgery. HISTORY OF PRESENT ILLNESS: This 76-year-old woman with a past medical history of GERD, hypertension, hyperlipidemia, history of DJD, hypothyroidism, being followed by Dr. Lozano in the outpatient setting, was admitted with abdominal pain. The patient apparently underwent colonoscopy a month ago by Dr. Camara. The pain was situated mostly in the upper abdomen for the last 2-3 days. The patient had some bowel movements but the patient also had episodes of nausea and vomiting, and the patient came to [facility] Emergency Room for further evaluation and treatment. White count was elevated at [address] scan of the abdomen and pelvis was done, which I reviewed personally. It showed dilated proximal small bowel suggestive of partial mechanical small-bowel obstruction, which is new compared to old. Dr. Kimble is evaluating the patient. There is no history of any fever, rigor or chills at this time. PAST MEDICAL HISTORY: History of recent colonoscopy, GERD, hypertension, hyperlipidemia, history of DJD, history of adenoidectomy and back surgery. HOME MEDICATIONS: 1. FiberCon 620 mg p.o. daily. 2. Norvasc 2.5 mg p.o. daily. 3. Rosuvastatin 5 mg Thursday, Thursday. 4. Nitrostat 0.4 sublingually p.r.n. 5. Levothyroxine 75 mcg p.o. daily. 6. Lactulose 20 grams p.o. daily. 7. Vitamin D3 1000 daily. ALLERGIES: CLINDAMYCIN, LIPITOR, MORPHINE. FAMILY HISTORY: History of CAD, aortic aneurysm in the family. SOCIAL HISTORY: No history of smoking. No history of alcohol intake. REVIEW OF SYSTEMS: ENT: No diminished hearing. No diminished vision. CARDIOVASCULAR SYSTEM: No angina, palpitations. RESPIRATORY SYSTEM: No cough, hemoptysis. GI: As mentioned earlier. : No dysuria. NERVOUS SYSTEM: No numbness, weakness. ALLERGY/IMMUNOLOGY: No asthma or hay fever. MUSCULOSKELETAL: As mentioned earlier. HEMATOLOGY/ONCOLOGY: No history of anemia. ENDOCRINE: No history of diabetes or hypothyroidism. CONSTITUTIONAL: As mentioned earlier. DERMATOLOGY: Negative. RHEUMATOLOGY: Negative. PSYCHIATRY: As mentioned earlier. PHYSICAL EXAMINATION: Patient alert and oriented x3. Pulse 56, blood pressure 133/57, respirations 16, temperature 97.5, pulse ox 98% on room air. HEENT: Conjunctivae normal. Oral mucosa moist. NECK: No jugular venous distention. No carotid bruit. No lymph node enlargement. CARDIOVASCULAR: S1, S2 muffled. No S3. No S4. RESPIRATION: Breath sounds diminished at the bases. No rhonchi. No crackles. ABDOMEN: Soft. Mild diffuse tenderness diffusely in the upper abdomen basically. No guarding. No rigidity. No mass palpable. LEGS: No edema. No swelling. NERVOUS SYSTEM: Higher functions as mentioned earlier. Moves all 4 limbs. No focal motor or sensory deficit. LYMPHATICS: No lymph node palpable in neck, axillae or groin. JOINTS: No active deforming arthropathy. LABS: Labs at this time show WBC 17, hemoglobin 13, sodium 128. Other labs are noted. ASSESSMENT: 1. Abdominal pain, possibly partial small bowel obstruction, possible mechanical obstruction. 2. Hyponatremia. 3. Increased white count. 4. History of chest pain, angina. 5. History of gastroesophageal reflux disease. 6. Hypertension. 7. Hyperlipidemia. 8. History of degenerative joint disease. 9. History of hypothyroidism. 10.History of pancreatitis with pancreatic cyst. 11.History of psoriasis. 12.Lumbar degenerative joint disease. 13.History of MRSA. 14.History of adenoidectomy. 15.History of back surgery. 16.History of tonsillectomy. 17.FULL CODE. RECOMMENDATIONS AND DISCUSSION: In this 76-year-old woman who presented with multiple complex medical issues, we will monitor the patient closely, continue the current medication, continue symptomatic treatment. I would recommend resuming the home medications and otherwise continue the current medications, continue symptomatic treatment. I would recommend to follow with Dr. Kimble, and once the patient is p.o., home medication may be resumed. DVT prophylaxis. See orders for details. Further recommendations to follow. A copy of this dictation is being forwarded to Dr. Lozano, who is the primary physician. MMODL / IJN: [id number] /
[2021-07-01] MEDS: KETOROLAC 15 MG/ML 1 ML VIAL IVP SCH ×5 (01:12→23:10)
[2021-07-01] MEDS: HEPARIN SODIUM,PORCINE/PF 5,000 UNIT/0.5 ML SYRINGE SQ SCH ×4 (01:13→23:10)
[2021-07-01] MEDS: SODIUM CHLORIDE 0.9% 1,000 ML IV SCH ×2 (01:19→15:25)
[2021-07-01] MEDS: PANTOPRAZOLE 40 MG/10 ML VIAL IVP SCH ×2 (07:27→19:51)
--- NOTE | 2021-07-01 08:47 | XR ---
2 view abdomen HISTORY: Follow-up small bowel obstruction 2 views the abdomen correlated to CT scan 06/29/[address] is in place, side-port of the NG tube is proximal to the gastroesophageal junction level. The re is no evident pneumoperitoneum. There are air-fluid levels are evident. Postop changes noted to th e lumbar spine and gastroesophageal junction level, bowel. Multiple phleboliths are present within th e pelvis. IMPRESSION: Nonspecific bowel gas pattern. Postop changes. NG tube as described.
[2021-07-01] MEDS: IOPAMIDOL CONTRAST (ORAL USE) VIAL PO PRN ×2 (09:42→10:42)
[2021-07-01 10:51] LABS: African American GFR (CKD) 96.9 (60.0-200.0); Anion Gap 14.2 mmol/L (4.00-12.00); Calcium 8.1 mg/dL (8.7-10.3); Carbon Dioxide 14.8 mmol/L (21.6-31.8); Non-African American GFR(CKD) 83.6 (60.0-200.0); Potassium 3.7 mmol/L (3.5-5.5)
[2021-07-01 10:53] LABS: Basophils # (A) 0.02 X 10*3/uL (0.00-0.10); Basophils % (A) 0.4 %; Eosinophils # (A) 0.15 X 10*3/uL (0.04-0.35); HCT 32.3 % (37.2-46.3); HGB 10.2 g/dL (12.0-15.0); Lymphocytes # (A) 1.73 X 10*3/uL (0.90-5.00); Lymphocytes % (A) 34.1 %; MCH 30.3 pg (27.0-32.0); MCHC 31.6 g/dL (32.0-37.0); MCV 95.8 fL (80.0-97.0); Mean Platelet Volume 10.1 fL (9.5-12.2); Monocytes # (A) 0.35 X 10*3/uL (0.20-1.00); Monocytes % (A) 6.9 %; Neutrophils % (A) 55.2 %; Platelet Count 174 X 10*3/uL (140-440); RBC 3.37 X 10*6/uL (4.10-5.20); RDW 13.4 % (11.5-14.5); WBC 5.07 X 10*3/uL (4.50-10.00)
--- NOTE | 2021-07-01 11:26 | P.PN ---
Subjective Progress Note Date: 07/01/21 CHIEF COMPLAINT: Small bowel obstruction HISTORY OF PRESENT ILLNESS: Patient is being followed for her small bowel obstruction. She has NG tube in place. No bowel movement or flatus. She reports that her abdominal pain showing improvement. Her nausea is slightly better. She has prior history of constipation as well as bowel resection, cholecystectomy and hysterectomy. Abdominal x-ray shows nonspecific bowel gas pattern. Postop changes. She is afebrile. WBC 5.07 hemoglobin 10.2 PHYSICAL EXAM: VITAL SIGNS: Reviewed. GENERAL: Well-developed in no acute distress. HEENT: No sclera icterus. Extraocular movements grossly intact. Moist buccal mucosa. Head is atraumatic, normocephalic. ABDOMEN: Soft. Nondistended. NEUROLOGIC: Alert and oriented. Cranial nerves II through XII grossly intact. ASSESSMENT: 1. Small bowel obstruction PLAN: -Keep NG tube in for decompression -Computed tomography scan of the abdomen and pelvis with oral contrast has been ordered for further evaluation of small bowel obstruction -Further recommendations forthcoming depending on CAT scan results Physician Blister Pack Operator note has been reviewed by physician. Signing provider agrees with the documented findings, assessment, and plan of care. Objective - Vital Signs Vital signs: Vital Signs Temp 97.4 F L 07/01/21 08:00 Pulse 60 07/01/21 08:00 Resp 18 07/01/21 08:00 BP 153/56 07/01/21 08:00 Pulse Ox 95 07/01/21 08:00 Intake & Output 06/30/21 07/01/21 07/01/21 18:59 06:59 18:59 Intake Total 600 Output Total 200 Balance 400 Intake: Intake, IV Titration 600 Amount Sodium Chloride 0.9% 1, 600 000 ml @ 75 mls/hr IV . [id number] [facility] Rx#:[id number] Output: Gastric Drainage 200 Other: # Voids 3 3 - Labs CBC & Chem 7: 07/01/21 06:08 07/01/21 06:08 Labs: Abnormal Lab Results - Last 24 Hours (Table) 07/01/21 07/01/21 Range/Units 06:08 06:08 RBC 3.37 L (4.10-5.20) X 10*6/uL Hgb 10.2 L (12.0-15.0) g/dL Hct 32.3 L (37.2-46.3) % MCHC 31.6 L (32.0-37.0) g/dL Absolute Nucleated RBC 0.02 H (0.00-0.00) X 10*3/uL NRBC/100 WBC Diff 0.4 H (0.0-0.0) /100 WBCS Carbon Dioxide 14.8 L (21.6-31.8) mmol/L Anion Gap 14.20 H (4.00-12.00) mmol/L Calcium 8.1 L (8.7-10.3) mg/dL
--- NOTE | 2021-07-01 11:41 | CT ---
EXAMINATION TYPE: CT abdomen pelvis wo con DATE OF EXAM: 07/01/2021 HISTORY: PAIN, SBO CT DLP: 399.5 mGycm. Automated Exposure Control for Dose Reduction was Utilized. TECHNIQUE: CT scan of the abdomen and pelvis is performed with oral but without IV contrast. COMPARISON: CT abdomen and pelvis 2 days ago FINDINGS: Within the limitations of a non-contrast study, the following observations are made. LUNG BASES: There is 6mm calcified nodule or benign granuloma left lung base axial image 1. LIVER/GB: Cholecystectomy clips are redemonstrated. PANCREAS: No significant abnormality is seen. SPLEEN: No significant abnormality is seen. ADRENALS: No significant abnormality is seen. KIDNEYS: No renal stones or hydronephrosis is seen bilaterally. BOWEL: Oral contrast reaches level of distal transverse colon. No suspicious small or large bowel dil atation currently. Surgical sutures sigmoid rectal colon left pelvis axial image 101 are redemonstrat ed. Marked improvement in dilated fluid-filled small bowel loops throughout the left and lower abdome n into the pelvis. . GENITAL ORGANS: Uterus surgically absent. Scattered bilateral pelvic phleboliths. LYMPH NODES: No greater than 1cm abdominal or pelvic lymph nodes are appreciated. OSSEOUS STRUCTURES: Moderate disc space narrowing lumbosacral junction. Moderate disc space narrowing and vacuum disc phenomenon near thoracolumbar junction redemonstrated. Prominent posterior spur disc complex T12-L1 level. OTHER: Anterior midline vertical scar redemonstrated. IMPRESSION: Interval resolution of partial small bowel obstruction. No new or acute findings evident.
--- NOTE | 2021-07-01 15:52 | P.PN ---
Subjective Progress Note Date: 07/01/21 This is a pleasant 76-year-old female who was recently admitted with abdominal pain associated with nausea and vomiting admitted under surgical services and being closely monitored. Patient is being treated for partial mechanical small bowel obstruction and surgery following closely. Patient continues with NG tube which has been clamped throughout most the day and no further episodes of vomiting noted. Patient continues with some abdominal discomfort and reports to passing gas and is having bowel movements. White count improved at 5.07, hemoglobin is stable at 10.2, sodium is 137 with a potassium of 3.7 current creatinine is 0.7. Vital signs are stable. Patient is afebrile. Review of systems: Constitutional: No reports of fatigue, fever, or chills Cardiovascular: No reports of chest pain or palpitations Respiratory: No reports of shortness of breath or cough GI: No reports of nausea, vomiting, or diarrhea, report some abdominal discomfort : No reports of dysuria or retention Neurovascular: No reports of weakness or numbness All medications have been reviewed Active Medications Enalaprilat (Enalaprilat 1.25 Mg/Ml 1 Ml Vial) 2.5 mg IVP Q6HR PRN PRN Reason: Blood Pressure - High Famotidine (Famotidine 20 Mg/2 Ml Vial) 20 mg IV HS [facility] Last Admin: 06/30/21 20:00 Dose: 20 mg Documented by: Heparin Sodium (Porcine) (Heparin Sodium,Porcine/Pf 5,000 Unit/0.5 Ml Syringe) 5,000 unit SQ Q8HR [facility] Last Admin: 07/01/21 15:26 Dose: 5,000 unit Documented by: Hydromorphone HCl (Hydromorphone 1 Mg/Ml 1 Ml Syringe) 1 mg IVP Q3HR PRN PRN Reason: Pain Sodium Chloride (Saline 0.9%) 1,000 mls @ 75 mls/hr IV .[id number] [facility] Last Admin: 07/01/21 15:25 Dose: 75 mls/hr Documented by: Ketorolac Tromethamine (Ketorolac 15 Mg/Ml 1 Ml Vial) 15 mg IVP Q6HR [facility] Stop: 07/05/21 12:01 Last Admin: 07/01/21 11:43 Dose: 15 mg Documented by: Naloxone HCl (Naloxone 0.4 Mg/Ml 1 Ml Vial) 0.2 mg IV Q2M PRN PRN Reason: Opioid Reversal Ondansetron HCl (Ondansetron 4 Mg/2 Ml Vial) 4 mg IVP Q8HR PRN PRN Reason: Nausea And Vomiting Pantoprazole Sodium (Pantoprazole 40 Mg/10 Ml Vial) 40 mg IVP BID [facility] Last Admin: 07/01/21 07:27 Dose: 40 mg Documented by: Physical exam: Gen: This is a 76-year-old female awake, alert and oriented 3, well-developed, well-nourished. HEENT: Head is atraumatic, normocephalic. Pupils equal, round. Sclerae is anicteric. NECK: Supple. No JVD. No lymphadenopathy. No thyromegaly. LUNGS: Clear to auscultation. No wheezes or rhonchi. No intercostal retractions. HEART: Regular rate and rhythm. No murmur. ABDOMEN: Soft. Bowel sounds are present. No masses. No tenderness. EXTREMITIES: No pedal edema. No calf tenderness. NEUROLOGICAL: Patient is awake, alert and oriented x3. Cranial nerves 2 through 12 are grossly intact. Assessment: Abdominal pain, possibly partial small bowel obstruction, possible mechanical obstruction Hyponatremia, improved Increased white count History of gastroesophageal reflux disease Hypertension Hyperlipidemia History of pancreatitis with pancreatic cyst GI prophylaxis DVT prophylaxis Full code Plan: Recommend continue with current medications and current management. Patient had abdominal x-ray today which shows nonspecific bowel gas pattern with air-fluid levels that are evident with no evident pneumoperitoneum. Abdomen pelvis CT was also ordered showing interval resolution of partial small bowel obstruction with no new or acute findings evident. Patient to be started on clear liquids with possibility of removing NG tube. Will monitor for tolerance. Will need to follow along closely with surgery during hospitalization. Thank you for this consultation. Objective - Vital Signs Vital signs: Vital Signs Temp 97.4 F L 07/01/21 08:00 Pulse 60 07/01/21 08:00 Resp 18 07/01/21 08:00 BP 153/56 07/01/21 08:00 Pulse Ox 95 07/01/21 08:00 Intake & Output 06/30/21 07/01/21 07/01/21 18:59 06:59 18:59 Intake Total 600 Output Total 200 Balance 400 Intake: Intake, IV Titration 600 Amount Sodium Chloride 0.9% 1, 600 000 ml @ 75 mls/hr IV . [id number] [facility] Rx#:[id number] Output: Gastric Drainage 200 Other: # Voids 3 3 - Labs CBC & Chem 7: 07/01/21 06:08 07/01/21 06:08
[2021-07-01] MEDS: FAMOTIDINE 20 MG/2 ML VIAL IV SCH (19:52)
[2021-07-02 06:56] VITALS: BP 127/70; PULSE 64; RESP 18; TEMP 98.5
[2021-07-02] MEDS: KETOROLAC 15 MG/ML 1 ML VIAL IVP SCH ×2 (06:57→10:50)
[2021-07-02] MEDS: SODIUM CHLORIDE 0.9% 1,000 ML IV SCH (06:57)
[2021-07-02] MEDS: HEPARIN SODIUM,PORCINE/PF 5,000 UNIT/0.5 ML SYRINGE SQ SCH (07:01)
[2021-07-02] MEDS: PANTOPRAZOLE 40 MG/10 ML VIAL IVP SCH (07:01)
--- NOTE | 2021-07-02 11:05 | P.DS ---
Providers Date of admission: 06/29/21 22:13 Expected date of discharge: 07/02/21 Attending physician: Deng Camara Consults: 06/30/21 12:39 Consult Physician Urgent Consulting Provider: Gerardo Acosta Consult Reason/Comments: Medical management Do you want consulting provider notified?: Already Contacted Primary care physician: Roxanna Marta [facility] Course: Discharge diagnosis 1. Partial small bowel obstruction treated conservatively Hospital course 76-year-old female came to the ER yesterday with complaints of abdominal pain. Patient states she underwent a colonoscopy one month ago. Began experiencing upper abdominal pain 2-3 days ago. He had a small bowel movement yesterday morning. She had episodes of nausea and vomiting in the ER. Patient says her pain is much improved currently. No history of similar events. Patient with history of chronic constipation. Underwent CT abdomen and pelvis which showed findings suggestive of small bowel obstruction or ileus. White blood cell count elevated at 17,000. Patient was having flatus. A repeat computed tomography scan of abdomen was completed showing interval resolution of partial small bowel obstruction. No new or acute findings evident. Patient is having bowel movements. She's tolerating clear liquid diet. Her partial small bowel dissection was treated conservatively. Her pain has resolved. She is stable for discharge. She will continue a full liquid diet until seen by surgeon next week. She is afebrile. She is up and ambulating. She is stable for discharge. Please refer to chart for any further details. Physician Plant Controls Specialist note has been reviewed by physician. Signing provider agrees with the documented findings, assessment, and plan of care. Patient Condition at Discharge: Stable Plan - Discharge Summary Discharge Rx Participant: Yes New Discharge Prescriptions: Continue Nitroglycerin Sl Tabs [Nitrostat] 0.4 mg SUBLINGUAL Q5M PRN PRN Reason: Chest Pain Cholecalciferol [Vitamin D3 (25 Mcg = 1000 Iu)] 1,000 unit PO DAILY Rosuvastatin Calcium 5 mg PO SUWE Lactulose 20 gm PO DAILY amLODIPine [Norvasc] 2.5 mg PO DAILY calcium polycarbophiL [Fibercon] 625 mg PO DAILY Levothyroxine Sodium [Euthyrox] 75 mcg PO DAILY Discharge Medication List Nitroglycerin Sl Tabs [Nitrostat] 0.4 mg SUBLINGUAL Q5M PRN 02/10/14 [History] Cholecalciferol [Vitamin D3 (25 Mcg = 1000 Iu)] 1,000 unit PO DAILY 06/13/15 [History] Rosuvastatin Calcium 5 mg PO SUWE 08/08/19 [History] amLODIPine [Norvasc] 2.5 mg PO DAILY 05/17/21 [History] Lactulose 20 gm PO DAILY 06/29/21 [History] Levothyroxine Sodium [Euthyrox] 75 mcg PO DAILY 06/29/21 [History] calcium polycarbophiL [Fibercon] 625 mg PO DAILY 06/29/21 [History] Follow up Appointment(s)/Referral(s): Roxanna Lozano MD [Primary Care Provider] - 1-2 days Deng Camara MD [STAFF PHYSICIAN] - 1 Week Activity/Diet/Wound Care/Special Instructions: Patient to continue a full liquid diet at home until seen by surgeon Discharge Disposition: HOME SELF-CARE
--- NOTE | 2021-07-02 11:19 | P.PN ---
Subjective Progress Note Date: 07/02/21 This is a pleasant 76-year-old female who was recently admitted with abdominal pain associated with nausea and vomiting admitted under surgical services and being closely monitored. Patient is being treated for partial mechanical small bowel obstruction and surgery following closely. Patient continues with NG tube which has been clamped throughout most the day and no further episodes of vomiting noted. Patient continues with some abdominal discomfort and reports to passing gas and is having bowel movements. White count improved at 5.07, hemoglobin is stable at 10.2, sodium is 137 with a potassium of 3.7 current creatinine is 0.7. Vital signs are stable. Patient is afebrile. 07/02/2021 Patient is seen and evaluated and follow-up had the NG tube removed and is tolerating clear liquids and has had multiple bowel movements and is passing gas. Patient tolerating diet and requesting information to go home with about what diet to follow and information will be provided. Patient denies any abdominal discomfort. She will follow closely with in the outpatient setting in 1 week. Encouraged to follow-up with primary care provider Dr. Lozano upon discharge. Notified the patient a copy of this documentation will be sent to primary care provider. Review of systems: Constitutional: No reports of fatigue, fever, or chills Cardiovascular: No reports of chest pain or palpitations Respiratory: No reports of shortness of breath or cough GI: No reports of nausea, vomiting, or diarrhea, reports passing gas and having bowel movements : No reports of dysuria or retention Neurovascular: No reports of weakness or numbness All medications have been reviewed Active Medications Enalaprilat (Enalaprilat 1.25 Mg/Ml 1 Ml Vial) 2.5 mg IVP Q6HR PRN PRN Reason: Blood Pressure - High Famotidine (Famotidine 20 Mg/2 Ml Vial) 20 mg IV HS [facility] Last Admin: 07/01/21 19:52 Dose: 20 mg Documented by: Heparin Sodium (Porcine) (Heparin Sodium,Porcine/Pf 5,000 Unit/0.5 Ml Syringe) 5,000 unit SQ Q8HR [facility] Last Admin: 07/02/21 07:01 Dose: 5,000 unit Documented by: Hydromorphone HCl (Hydromorphone 1 Mg/Ml 1 Ml Syringe) 1 mg IVP Q3HR PRN PRN Reason: Pain Sodium Chloride (Saline 0.9%) 1,000 mls @ 75 mls/hr IV .[id number] [facility] Last Admin: 07/02/21 06:57 Dose: 75 mls/hr Documented by: Ketorolac Tromethamine (Ketorolac 15 Mg/Ml 1 Ml Vial) 15 mg IVP Q6HR [facility] Stop: 07/05/21 12:01 Last Admin: 07/02/21 10:50 Dose: Not Given Documented by: Naloxone HCl (Naloxone 0.4 Mg/Ml 1 Ml Vial) 0.2 mg IV Q2M PRN PRN Reason: Opioid Reversal Ondansetron HCl (Ondansetron 4 Mg/2 Ml Vial) 4 mg IVP Q8HR PRN PRN Reason: Nausea And Vomiting Pantoprazole Sodium (Pantoprazole 40 Mg/10 Ml Vial) 40 mg IVP BID [facility] Last Admin: 07/02/21 07:01 Dose: 40 mg Documented by: Physical exam: Gen: This is a 76-year-old female awake, alert and oriented 3, well-developed, well-nourished. HEENT: Head is atraumatic, normocephalic. Pupils equal, round. Sclerae is anicteric. NECK: Supple. No JVD. No lymphadenopathy. No thyromegaly. LUNGS: Clear to auscultation. No wheezes or rhonchi. No intercostal retractions. HEART: Regular rate and rhythm. No murmur. ABDOMEN: Soft. Bowel sounds are present. No masses. No tenderness. EXTREMITIES: No pedal edema. No calf tenderness. NEUROLOGICAL: Patient is awake, alert and oriented x3. Cranial nerves 2 through 12 are grossly intact. Assessment: Abdominal pain, possibly partial small bowel obstruction, possible mechanical obstruction Hyponatremia, improved Increased white count, resolved possibly reactive History of gastroesophageal reflux disease Hypertension Hyperlipidemia History of pancreatitis with pancreatic cyst GI prophylaxis DVT prophylaxis Full code Plan: Recommend continue with current medications and current management. Patient had NG tube removed and started on clear liquids and tolerating with no reports of abdominal discomfort noted. Patient is passing gas and having bowel movements and is anticipating being discharged today. Patient requesting informational pamphlets on diet to follow and this was discussed with nursing staff. Patient encouraged to follow-up with primary care provider Dr. Austen Lozano upon discharge. Will continue to follow along closely with surgery during hospitalization. Thank you for this consultation. Anticipating discharge today. Objective - Vital Signs Vital signs: Vital Signs Temp 98.5 F 07/02/21 06:54 Pulse 64 07/02/21 06:54 Resp 18 07/02/21 08:00 BP 127/70 07/02/21 06:54 Pulse Ox 98 07/02/21 06:54 Intake & Output 07/01/21 07/02/21 07/02/21 18:59 06:59 18:59 Intake Total 1380 Output Total 50 Balance 1330 Intake: IV 900 Sodium Chloride 0.9% 1, 900 000 ml @ 75 mls/hr IV . [id number] [facility] Rx#:[id number] Oral 480 Output: Gastric Drainage 50 Other: # Voids 4 3 # Bowel Movements 4 - Labs CBC & Chem 7: 07/01/21 06:08 07/01/21 06:08 Labs: Abnormal Lab Results - Last 24 Hours (Table) 07/01/21 07/01/21 Range/Units 06:08 06:08 RBC 3.37 L (4.10-5.20) X 10*6/uL Hgb 10.2 L (12.0-15.0) g/dL Hct 32.3 L (37.2-46.3) % MCHC 31.6 L (32.0-37.0) g/dL Absolute Nucleated RBC 0.02 H (0.00-0.00) X 10*3/uL NRBC/100 WBC Diff 0.4 H (0.0-0.0) /100 WBCS Carbon Dioxide 14.8 L (21.6-31.8) mmol/L Anion Gap 14.20 H (4.00-12.00) mmol/L Calcium 8.1 L (8.7-10.3) mg/dL
== END 2021-07-02 11:47 | disposition home or self-care (01) | DRG 389 ==
LOC: EC 17:54 → 4SSUR 22:13
PROVIDERS: ADMIT Surgery; ATTEND Surgery
DX: K56.690 Other partial intestinal obstruction (principal); E87.1 Hypo-osmolality and hyponatremia; Z16.24 Resistance to multiple antibiotics; K86.2 Cyst of pancreas; I10 Essential (primary) hypertension; D72.829 Elevated white blood cell count, unspecified; E03.9 Hypothyroidism, unspecified; E78.5 Hyperlipidemia, unspecified; Z79.890 Hormone replacement therapy; Z79.899 Other long term (current) drug therapy; Z82.49 Family history of ischemic heart disease and other diseases of the circulatory system; Z86.14 Personal history of Methicillin resistant Staphylococcus aureus infection; Z90.49 Acquired absence of other specified parts of digestive tract; Z90.710 Acquired absence of both cervix and uterus; Z96.1 Presence of intraocular lens; Z98.41 Cataract extraction status, right eye; Z98.42 Cataract extraction status, left eye; M47.816 Spondylosis without myelopathy or radiculopathy, lumbar region; K21.9 Gastro-esophageal reflux disease without esophagitis; K44.9 Diaphragmatic hernia without obstruction or gangrene; M19.90 Unspecified osteoarthritis, unspecified site; L40.9 Psoriasis, unspecified; D25.9 Leiomyoma of uterus, unspecified; K59.09 Other constipation; E55.9 Vitamin D deficiency, unspecified; M51.36 Other intervertebral disc degeneration, lumbar region
CPT/HCPCS: 36415; 71045; 74019; 74176; 74177; 80048; 80053; 81001; 82150; 83690; 84484; 85025; 87635; 93005; 96361; 96374; 99285

== ENCOUNTER → 2021-07-08 | Outpatient (CLI) | payer MEDICARE ==
[2021-07-08 15:55] LABS: African American GFR (CKD) 80.2 (60.0-200.0); Albumin 4.1 g/dL (3.8-4.9); Albumin/Globulin Ratio 2.21 (1.60-3.17); Anion Gap 11.6 mmol/L (4.00-12.00); BUN/Creat Ratio 8.91 Ratio (12.00-20.00); Blood Urea Nitrogen 7.3 mg/dL (9.0-27.0); Calcium 9.4 mg/dL (8.7-10.3); Carbon Dioxide 21.1 mmol/L (21.6-31.8); Chol/HDL Ratio 1.84 Ratio; Globulin 1.9 g/dL (1.6-3.3); HDL Cholesterol 83.6 mg/dL (40.00-60.00); LDL Cholesterol,Calculated 55.1 mg/dL (0.0-131.0); Non-African American GFR(CKD) 69.2 (60.0-200.0); Potassium 4.6 mmol/L (3.5-5.5); Total Bilirubin 0.4 mg/dL (0.30-1.20); Total Protein 5.9 g/dL (6.2-8.2); Triglycerides 76.5 mg/dL (0.00-149.00); VLDL Calculation 15.3 mg/dL (5.00-40.00)
== END | disposition home or self-care (01) ==
LOC: LABWHC1 08:13
PROVIDERS: ATTEND Nurse Practitioner Adult Health
DX: I10 Essential (primary) hypertension (principal); E78.2 Mixed hyperlipidemia
CPT/HCPCS: 36415; 80053; 80061

== ENCOUNTER 2021-07-20 00:19 | Inpatient (IN) | payer MEDICARE ==
--- NOTE | 2021-07-20 00:54 | ED ---
General Adult HPI - General Chief complaint: Abdominal Pain Stated complaint: Abdominal Pain, constipation Time Seen by Provider: 07/20/21 00:43 Source: patient, RN notes reviewed Mode of arrival: ambulatory - History of Present Illness Initial comments: 76-year-old female with a past medical history of pancreatitis, pancreatic cyst, hyperlipidemia, hypertension, diverticulitis, bowel obstruction presents to the emergency room for a chief complaint of constipation. Patient reports that she only had one bowel movement yesterday. States she was unable to have a bowel movement at a despite taking Metamucil 3 times. Patient has had mild upper abdominal pain since noon. Patient states that she recently was admitted for an obstruction and she was told that if she had any abdominal pain and was not able to have a bowel movement she needed to come back to the ER. Patient has no other complaints at this time including shortness of breath, chest pain, nausea or vomiting, headache, or visual changes. - Related Data Home Medications Medication Instructions Recorded Confirmed Nitroglycerin Sl Tabs [Nitrostat] 0.4 mg SUBLINGUAL Q5M PRN 02/10/14 06/29/21 Cholecalciferol [Vitamin D3 (25 1,000 unit PO DAILY 06/13/15 06/29/21 Mcg = 1000 Iu)] Rosuvastatin Calcium 5 mg PO SUWE 08/08/19 06/29/21 amLODIPine [Norvasc] 2.5 mg PO DAILY 05/17/21 06/29/21 Lactulose 20 gm PO DAILY 06/29/21 06/29/21 Levothyroxine Sodium [Euthyrox] 75 mcg PO DAILY 06/29/21 06/29/21 calcium polycarbophiL [Fibercon] 625 mg PO DAILY 06/29/21 06/29/21 Allergies Allergy/AdvReac Type Severity Reaction Status Date / Time clindamycin Allergy Rash/Hives Verified 07/20/21 00:32 atorvastatin calcium AdvReac LEG CRAMPS Verified 07/20/21 00:32 [From Lipitor] morphine AdvReac Nausea & Verified 07/20/21 00:32 Vomiting Review of Systems ROS Statement: Those systems with pertinent positive or pertinent negative responses have been documented in the HPI. ROS Other: All systems not noted in ROS Statement are negative. Past Medical History Past Medical History: Chest Pain / Angina, GERD/Reflux, Hyperlipidemia, Hypertension, Osteoarthritis (OA), Skin Disorder, Thyroid Disorder Additional Past Medical History / Comment(s): Hx. pancreatitis with pancreatic CYSTS. PSORIASISlt ankle. angina, vitamin D deficiency, degenerative disc disease of the CERIVAL AND lumbar spine unable to lift anything over 10# or stand for long periods of time. Diverticulitis. Bronchits. UTERINE fibroids. Falls. Hiatal hernia History of Any Multi-Drug Resistant Organisms: MRSA, Other MDRO Date of last positivie culture/infection: 2013 in [place] [facility] MDRO Source:: spider bite on lt leg Past Surgical History: Adenoidectomy, Back Surgery, Bowel Resection, Cholecystectomy, Hernia Repair, Hysterectomy, Orthopedic Surgery, Tonsillectomy Additional Past Surgical History / Comment(s): Anterior cervical discectomy with fusion(toal 3 sx has wire in neck) , lumbar fusion 3-screws in back. R hip surgery(NOT A HIP REPLACEMENT). Left 1st rib removal r/t thoracic outlet syndrome. Hiatal hernia surg. Bilateral cataract surgery with lens implant Lt elbow tendon release. Sx on gums d/t infection. Dental implant Past Anesthesia/Blood Transfusion Reactions: No Reported Reaction Additional Past Anesthesia/Blood Transfusion Reaction / Comment(s): blood transfusion in 1969-no reaction Past Psychological History: No Psychological Hx Reported Smoking Status: Never smoker Past Alcohol Use History: None Reported Past Drug Use History: None Reported - Past Family History Father History Unknown: Yes Family Medical History: Coronary Artery Disease (CAD) Additional Family Medical History / Comment(s): aortic aneurysm at 72 Mother Family Medical History: CVA/TIA Brother(s) Family Medical History: No Reported History Sister(s) Family Medical History: Vascular Disorder Son(s) Family Medical History: No Reported History Daughter(s) Family Medical History: Unable to Obtain General Exam General appearance: alert, in no apparent distress Head exam: Present: atraumatic Eye exam: Present: normal appearance, PERRL, EOMI. Absent: scleral icterus, conjunctival injection ENT exam: Present: normal exam, mucous membranes moist Neck exam: Present: normal inspection, full ROM. Absent: tenderness Respiratory exam: Present: normal lung sounds bilaterally. Absent: respiratory distress, wheezes Cardiovascular Exam: Present: regular rate, normal rhythm, normal heart sounds GI/Abdominal exam: Present: soft, tenderness (mild epigastric abdominal tenderness), normal bowel sounds. Absent: distended Neurological exam: Present: alert Course Vital Signs 07/20/21 07/20/21 00:33 02:34 Temperature 97.9 F Pulse Rate 62 51 L Respiratory 18 18 Rate Blood Pressure 131/78 138/70 O2 Sat by Pulse 97 99 Oximetry Medical Decision Making - Medical Decision Making vitals are stable. pt has minimal epigastric abdominal tenderness on exam. XR KUB was obtained and patient does seem to have significant amount of stool. No obstruction. CBC unremarkable, wbc is normal. cmp however did reveal hyponatremia of 121. At this time patient will be admitted for further workup and replacement. - Lab Data Result diagrams: 07/20/21 01:31 07/20/21 01:31 Lab Results 07/20/21 07/20/21 07/20/21 Range/Units 01:31 01:31 01:31 WBC 8.9 (3.8-10.6) k/uL RBC 4.30 (3.80-5.40) m/uL Hgb 12.7 (11.4-16.0) gm/dL Hct 38.1 (34.0-46.0) % MCV 88.4 (80.0-100.0) fL MCH 29.5 (25.0-35.0) pg MCHC 33.4 (31.0-37.0) g/dL RDW 13.0 (11.5-15.5) % Plt Count 260 (150-450) k/uL MPV 7.1 Neutrophils % 74 % Lymphocytes % 18 % Monocytes % 6 % Eosinophils % 1 % Basophils % 0 % Neutrophils # 6.5 (1.3-7.7) k/uL Lymphocytes # 1.6 (1.0-4.8) k/uL Monocytes # 0.5 (0-1.0) k/uL Eosinophils # 0.1 (0-0.7) k/uL Basophils # 0.0 (0-0.2) k/uL Sodium 121 L (137-145) mmol/L Potassium 3.8 (3.5-5.1) mmol/L Chloride 90 L (98-107) mmol/L Carbon Dioxide 23 (22-30) mmol/L Anion Gap 8 mmol/L BUN 9 (7-17) mg/dL Creatinine 0.69 (0.52-1.04) mg/dL Est GFR (CKD-EPI)AfAm >90 (>60 ml/min/1.73 sqM) Est GFR (CKD-EPI)NonAf 84 (>60 ml/min/1.73 sqM) Glucose 116 H (74-99) mg/dL Calcium 10.0 (8.4-10.2) mg/dL Total Bilirubin 0.8 (0.2-1.3) mg/dL AST 28 (14-36) U/L ALT 15 (4-34) U/L Alkaline Phosphatase 61 (38-126) U/L Total Protein 6.5 (6.3-8.2) g/dL Albumin 4.2 (3.5-5.0) g/dL Lipase 142 (23-300) U/L Urine Color Light Yellow Urine Appearance Clear (Clear) Urine pH 6.5 (5.0-8.0) Ur Specific [place] 1.004 (1.001-1.035) Urine Protein Negative (Negative) Urine Glucose (UA) Negative (Negative) Urine Ketones Negative (Negative) Urine Blood Trace H (Negative) Urine Nitrite Negative (Negative) Urine Bilirubin Negative (Negative) Urine Urobilinogen <2.0 (<2.0) mg/dL Ur Leukocyte Esterase Negative (Negative) Urine RBC <1 (0-5) /hpf Urine WBC 1 (0-5) /hpf Ur Squamous Epith Cells 1 (0-4) /hpf Disposition Clinical Impression: Hyponatremia, Constipation Disposition: ADMITTED IP TO THIS HOSP Is patient prescribed a controlled substance at d/c from ED?: No Referrals: Roxanna Lozano MD [Primary Care Provider] - 1-2 days Time of Disposition: 02:43
[2021-07-20] MEDS ORDERED: ONDANSETRON 4 MG/2 ML VIAL IVP STA (00:55)
--- NOTE | 2021-07-20 01:24 | XR ---
EXAMINATION TYPE: XR KUB DATE OF EXAM: 07/20/2021 COMPARISON: 07/01/2021 HISTORY: Abdominal pain TECHNIQUE: 2 views upright FINDINGS: There are clips from cholecystectomy. There is no sign of intestinal obstruction or pneumop eritoneum. Fecal pattern is fairly normal. Lung bases are clear. There is no evidence of abdominal ma ss. There is apparent previous surgery in the lumbar spine with metal pin on the right side at L5 lev el. There are no calcifications over the kidneys. IMPRESSION: Nonacute abdomen. No evidence of a bowel obstruction. No change.
[2021-07-20 01:58] LABS: Basophils % (A) 0 %; Eosinophils # (A) 0.1 k/uL (0-0.7); Eosinophils % (A) 1 %; HCT 38.1 % (34.0-46.0); HGB 12.7 gm/dL (11.4-16.0); Lymphocytes # (A) 1.6 k/uL (1.0-4.8); Lymphocytes % (A) 18 %; MCH 29.5 pg (25.0-35.0); MCHC 33.4 g/dL (31.0-37.0); MCV 88.4 fL (80.0-100.0); Mean Platelet Volume 7.1; Monocytes # (A) 0.5 k/uL (0-1.0); Monocytes % (A) 6 %; Neutrophils # (A) 6.5 k/uL (1.3-7.7); Neutrophils % (A) 74 %; Platelet Count 260 k/uL (150-450); WBC 8.9 k/uL (3.8-10.6)
[2021-07-20 02:06] LABS: Appearance,Urine Clear (Clear); Bilirubin,Urine Negative (Negative); Blood,Urine Trace (Negative); Color,Urine Light Yellow; Glucose,Urine (UA) Negative (Negative); Ketones,Urine Negative (Negative); Leukocyte Esterase,Urine Negative (Negative); Nitrite,Urine Negative (Negative); PH, Urine 6.5 (5.0-8.0); Protein,Urine Negative (Negative); RBC,Urine <1 /hpf (0-5); Specific Gravity,Urine 1.004 (1.001-1.035); Squamous Epithelial Cell,Urine 1 /hpf (0-4); Urobilinogen,Urine <2.0 mg/dL (<2.0); WBC,Urine 1 /hpf (0-5)
[2021-07-20 02:16] LABS: ALT 15 U/L (4-34); AST 28 U/L (14-36); African American GFR (CKD) >90 (>60 ml/min/1.73 sqM); Albumin 4.2 g/dL (3.5-5.0); Alkaline Phosphatase 61 U/L (38-126); Anion Gap 8 mmol/L; Blood Urea Nitrogen 9 mg/dL (7-17); Carbon Dioxide 23 mmol/L (22-30); Chloride 90 mmol/L (98-107); Glucose 116 mg/dL (74-99); Lipase 142 U/L (23-300); Non-African American GFR(CKD) 84 (>60 ml/min/1.73 sqM); Potassium 3.8 mmol/L (3.5-5.1); Sodium 121 mmol/L (137-145); Total Bilirubin 0.8 mg/dL (0.2-1.3); Total Protein 6.5 g/dL (6.3-8.2)
[2021-07-20] MEDS ORDERED: SODIUM CHLORIDE 0.9% 500 ML 500 ML IV STA (02:19)
[2021-07-20] MEDS ORDERED: NALOXONE 0.4 MG/ML 1 ML VIAL IV PRN (02:40)
[2021-07-20] MEDS ORDERED: ACETAMINOPHEN TAB 325 MG TAB PO PRN (02:40)
[2021-07-20] MEDS ORDERED: ONDANSETRON 4 MG/2 ML VIAL IVP PRN (02:40)
[2021-07-20] MEDS ORDERED: MAGNESIUM CITRATE 296 ML BOTTLE PO STA (02:41)
[2021-07-20] MEDS: SODIUM CHLORIDE 0.9% 1,000 ML IV SCH ×2 (02:54→17:35)
[2021-07-20 03:10] LABS: Uric Acid 2.8 mg/dL (3.7-7.4)
[2021-07-20 04:38] LABS: T4, Free (Free Thyroxine) 1.88 ng/dL (0.78-2.19)
[2021-07-20 14:11] LABS: African American GFR (CKD) >90 (>60 ml/min/1.73 sqM); Anion Gap 8 mmol/L; Blood Urea Nitrogen 6 mg/dL (7-17); Calcium 9.2 mg/dL (8.4-10.2); Carbon Dioxide 21 mmol/L (22-30); Chloride 98 mmol/L (98-107); Glucose 111 mg/dL (74-99); Non-African American GFR(CKD) 87 (>60 ml/min/1.73 sqM); Potassium 4.3 mmol/L (3.5-5.1); Sodium 127 mmol/L (137-145)
[2021-07-20] MEDS: LACTULOSE 20 GM/30 ML CUP PO SCH ×2 (17:31→21:12)
[2021-07-21] MEDS: LEVOTHYROXINE 100 MCG TAB PO SCH (05:42)
[2021-07-21] MEDS: SODIUM CHLORIDE 0.9% 1,000 ML IV SCH ×2 (05:42→20:16)
[2021-07-21] MEDS: LACTULOSE 20 GM/30 ML CUP PO SCH ×2 (08:49→20:15)
[2021-07-21] MEDS: amLODIPine 2.5 MG TAB PO SCH (08:50)
[2021-07-21] MEDS ORDERED: LEVOTHYROXINE 75 MCG TAB PO SCH (09:00)
[2021-07-21 09:45] LABS: Basophils # (A) 0.04 X 10*3/uL (0.00-0.10); Basophils % (A) 0.7 %; Eosinophils # (A) 0.13 X 10*3/uL (0.04-0.35); Eosinophils % (A) 2.2 %; HCT 32.2 % (37.2-46.3); HGB 10.8 g/dL (12.0-15.0); Lymphocytes # (A) 1.56 X 10*3/uL (0.90-5.00); MCH 30.1 pg (27.0-32.0); MCHC 33.5 g/dL (32.0-37.0); MCV 89.7 fL (80.0-97.0); Mean Platelet Volume 9.7 fL (9.5-12.2); Monocytes # (A) 0.61 X 10*3/uL (0.20-1.00); Monocytes % (A) 10.2 %; Neutrophils # (A) 3.64 X 10*3/uL (1.80-7.70); Neutrophils % (A) 60.6 %; Platelet Count 221 X 10*3/uL (140-440); RBC 3.59 X 10*6/uL (4.10-5.20); RDW 13.2 % (11.5-14.5)
[2021-07-21 10:50] LABS: African American GFR (CKD) 86.9 (60.0-200.0); BUN/Creat Ratio 6.68 Ratio (12.00-20.00); Blood Urea Nitrogen 5.1 mg/dL (9.0-27.0); Calcium 8.4 mg/dL (8.7-10.3); Carbon Dioxide 17.1 mmol/L (21.6-31.8)
--- NOTE | 2021-07-21 16:58 | P.HPIM ---
History of Present Illness H&P Date: 07/20/21 Chief Complaint: Abdominal pain/constipation 76-year-old female with a past medical history of pancreatitis, pancreatic cyst, hyperlipidemia, hypertension, diverticulitis, bowel obstruction presents to the emergency room for a chief complaint of constipation. Patient reports that she only had one bowel movement yesterday. States she was unable to have a bowel movement at a despite taking Metamucil 3 times. Patient has had mild upper abdominal pain since noon. Patient states that she recently was admitted for an obstruction and she was told that if she had any abdominal pain and was not able to have a bowel movement she needed to come back to the ER. Patient has no other complaints at this time including shortness of breath, chest pain, nausea or vomiting, headache, or visual changes. Blood work completed in ED revealed sodium level of 121, potassium 3.8, BU N/creatinine of 19/0.69 and blood glucose of 116, WBC 8.9, hemoglobin 12.7 and platelet count of 260 XR KUB was obtained and patient does seem to have significant amount of stool. No obstruction. Review of Systems REVIEW OF SYSTEMS: CONSTITUTIONAL: No fever, no malaise, no fatigue. HEENT: No recent visual problems or hearing problems. Denied any sore throat. CARDIOVASCULAR: No chest pain, orthopnea, PND, no palpitations, no syncope. PULMONARY: No shortness of breath, no cough, no hemoptysis. GASTROINTESTINAL: No diarrhea, no nausea, no vomiting, no abdominal pain. NEUROLOGICAL: No headaches, no weakness, no numbness. HEMATOLOGICAL: Denies any bleeding or petechiae. GENITOURINARY: Denies any burning micturition, frequency, or urgency. MUSCULOSKELETAL/RHEUMATOLOGICAL: Denies any joint pain, swelling, or any muscle pain. ENDOCRINE: Denies any polyuria or polydipsia. The rest of the 14-point review of systems is negative. Past Medical History Past Medical History: Chest Pain / Angina, GERD/Reflux, Hyperlipidemia, Hypertension, Osteoarthritis (OA), Skin Disorder, Thyroid Disorder Additional Past Medical History / Comment(s): Hx. pancreatitis with pancreatic CYSTS. PSORIASISlt ankle. angina, vitamin D deficiency, degenerative disc disease of the CERIVAL AND lumbar spine unable to lift anything over 10# or stand for long periods of time. Diverticulitis. Bronchits. UTERINE fibroids. Falls. Hiatal hernia History of Any Multi-Drug Resistant Organisms: MRSA, Other MDRO Date of last positivie culture/infection: 2013 in [place] [facility] MDRO Source:: spider bite on lt leg Past Surgical History: Adenoidectomy, Back Surgery, Bowel Resection, Cholecystectomy, Hernia Repair, Hysterectomy, Orthopedic Surgery, Tonsillectomy Additional Past Surgical History / Comment(s): Anterior cervical discectomy with fusion(toal 3 sx has wire in neck) , lumbar fusion 3-screws in back. R hip surgery(NOT A HIP REPLACEMENT). Left 1st rib removal r/t thoracic outlet syndrome. Hiatal hernia surg. Bilateral cataract surgery with lens implant Lt elbow tendon release. Sx on gums d/t infection. Dental implant Past Anesthesia/Blood Transfusion Reactions: No Reported Reaction Additional Past Anesthesia/Blood Transfusion Reaction / Comment(s): blood transfusion in 1969-no reaction Past Psychological History: No Psychological Hx Reported Additional Psychological History / Comment(s): lives alone, senior center, cane at times used Smoking Status: Never smoker Past Alcohol Use History: None Reported Past Drug Use History: None Reported - Past Family History Father History Unknown: Yes Family Medical History: Coronary Artery Disease (CAD) Additional Family Medical History / Comment(s): aortic aneurysm at 72 Mother Family Medical History: CVA/TIA Brother(s) Family Medical History: No Reported History Sister(s) Family Medical History: Vascular Disorder Son(s) Family Medical History: No Reported History Daughter(s) Family Medical History: Unable to Obtain Medications and Allergies Home Medications Medication Instructions Recorded Confirmed Type Nitroglycerin Sl Tabs [Nitrostat] 0.4 mg SL Q5M PRN 02/10/14 07/20/21 History Cholecalciferol [Vitamin D3 (25 25 mcg PO DAILY 06/13/15 07/20/21 History Mcg = 1000 Iu)] Rosuvastatin Calcium 5 mg PO SUWE 08/08/19 07/20/21 History amLODIPine [Norvasc] 2.5 mg PO DAILY 05/17/21 07/20/21 History Levothyroxine Sodium [Euthyrox] 75 mcg PO DAILY 06/29/21 07/20/21 History calcium polycarbophiL [Fibercon] 625 mg PO DAILY 06/29/21 07/20/21 History Oxybutynin Chloride [Ditropan XL] 10 mg PO DAILY 07/20/21 07/20/21 History Allergies Allergy/AdvReac Type Severity Reaction Status Date / Time clindamycin Allergy Rash/Hives Verified 07/20/21 00:32 atorvastatin calcium AdvReac LEG CRAMPS Verified 07/20/21 00:32 [From Lipitor] morphine AdvReac Nausea & Verified 07/20/21 00:32 Vomiting Physical Exam Vitals: Vital Signs Temp Pulse Pulse Resp BP BP BP 07/20/21 07:00 97.8 F 64 18 152/70 07/20/21 03:54 97.9 F 58 L 18 147/66 07/20/21 03:17 56 L 18 101/65 07/20/21 02:34 51 L 18 138/70 07/20/21 00:33 97.9 F 62 18 131/78 Pulse Ox 07/20/21 07:00 99 07/20/21 03:54 99 07/20/21 03:17 98 07/20/21 02:34 99 07/20/21 00:33 97 Intake and Output 07/19/21 07/20/21 07/20/21 22:59 06:59 14:59 Intake Total 118 Balance 118 Intake: Oral 118 Other: Voiding Method Toilet # Voids 2 Weight 56.245 kg PHYSICAL EXAMINATION: GENERAL: The patient is alert and oriented x3, not in any acute distress. Well developed, well nourished. HEENT: Pupils are round and equally reacting to light. EOMI. No scleral icterus. No conjunctival pallor. Normocephalic, atraumatic. No pharyngeal erythema. No thyromegaly. CARDIOVASCULAR: S1 and S2 present. No murmurs, rubs, or gallops. PULMONARY: Chest is clear to auscultation, no wheezing or crackles. ABDOMEN: Soft, nontender, nondistended, normoactive bowel sounds. No palpable organomegaly. MUSCULOSKELETAL: No joint swelling or deformity. EXTREMITIES: No cyanosis, clubbing, or pedal edema. NEUROLOGICAL: Gross neurological examination did not reveal any focal deficits. SKIN: No rashes. Results CBC & Chem 7: 07/21/21 05:25 07/21/21 05:25 Labs: Abnormal Lab Results - Last 24 Hours (Table) 07/20/21 07/20/21 07/20/21 Range/Units 01:31 01:31 01:31 Sodium 121 L (137-145) mmol/L Chloride 90 L (98-107) mmol/L Glucose 116 H (74-99) mg/dL Osmolality 254 L (280-301) mosm/kg Uric Acid 2.8 L (3.7-7.4) mg/dL TSH 5.270 H (0.465-4.680) mIU/L Urine Blood Trace H (Negative) Thrombosis Risk Factor Assmnt - Choose All That Apply Each Risk Factor Represents 3 Points: Age 75 years or older Thrombosis Risk Factor Assessment Total Risk Factor Score: 3 Thrombosis Risk Factor Assessment Level: Moderate Risk Assessment and Plan Assessment: 1. Abdominal pain/constipation; patient has had multiple admissions recently for constipation; reports she does not follow-up with or PCP at home and prefers to come to ED; I have started patient on lactulose 20 g by mouth twice a day with plans to maintain her on a 20 g daily dose with further adjustments as needed 2. Marked hyponatremia; start patient on normal saline at 75 mL an hour; monitor strict SAMANTHA's and renal function with electrolytes; we will restrict oral fluids if sodium levels don't improve 3. Hypothyroidism; patient is clinically hypothyroid; labs completed in ED reveals a TSH of 5.27 and free T4 of 1.88; patient is clinically hypothyroid; we will increase levothyroxine 200 MCG daily and recommend repeat TSH and free T4 levels in 4-6 weeks 4. Hypertension; amlodipine 2.5 mg daily 5. Hyperlipidemia; continue Crestor 5 mg as directed DVT prophylaxis; SCDs CODE STATUS; full code
--- NOTE | 2021-07-21 17:00 | P.PN ---
Subjective Progress Note Date: 07/21/21 Principal diagnosis: Hypothyroidism Constipation secondary to hypothyroidism Abdominal pain 76-year-old female with a past medical history of pancreatitis, pancreatic cyst, hyperlipidemia, hypertension, diverticulitis, bowel obstruction presents to the emergency room for a chief complaint of constipation. Patient reports that she only had one bowel movement yesterday. States she was unable to have a bowel movement at a despite taking Metamucil 3 times. Patient has had mild upper abdominal pain since noon. Patient states that she recently was admitted for an obstruction and she was told that if she had any abdominal pain and was not able to have a bowel movement she needed to come back to the ER. Patient has no other complaints at this time including shortness of breath, chest pain, nausea or vomiting, headache, or visual changes. Blood work completed in ED revealed sodium level of 121, potassium 3.8, BUN/creatinine of 19/0.69 and blood glucose of 116, WBC 8.9, hemoglobin 12.7 and platelet count of 260 XR KUB was obtained and patient does seem to have significant amount of stool. No obstruction. Objective - Vital Signs Vital signs: Vital Signs Temp 98.0 F 07/21/21 07:00 Pulse 62 07/21/21 07:00 Resp 18 07/21/21 07:00 BP 105/49 07/21/21 07:00 Pulse Ox 98 07/21/21 07:00 Intake & Output 07/20/21 07/21/21 07/21/21 18:59 06:59 18:59 Intake Total 118 Output Total 1 Balance 117 Intake: Oral 118 Output: Emesis 1 Other: Voiding Method Toilet Toilet # Voids 4 3 # Bowel Movements 0 1 - Exam PHYSICAL EXAMINATION: GENERAL: The patient is alert and oriented x3, not in any acute distress. Well developed, well nourished. HEENT: Pupils are round and equally reacting to light. EOMI. No scleral icterus. No conjunctival pallor. Normocephalic, atraumatic. No pharyngeal erythema. No thyromegaly. CARDIOVASCULAR: S1 and S2 present. No murmurs, rubs, or gallops. PULMONARY: Chest is clear to auscultation, no wheezing or crackles. ABDOMEN: Soft, nontender, nondistended, normoactive bowel sounds. No palpable organomegaly. MUSCULOSKELETAL: No joint swelling or deformity. EXTREMITIES: No cyanosis, clubbing, or pedal edema. NEUROLOGICAL: Gross neurological examination did not reveal any focal deficits. SKIN: No rashes. - Labs CBC & Chem 7: 07/21/21 05:25 07/21/21 05:25 Labs: Abnormal Lab Results - Last 24 Hours (Table) 07/20/21 07/20/21 07/21/21 Range/Units 01:31 13:35 05:25 RBC 3.59 L (4.10-5.20) X 10*6/uL Hgb 10.8 L (12.0-15.0) g/dL Hct 32.2 L (37.2-46.3) % Sodium 127 L (137-145) mmol/L Carbon Dioxide 21 L (22-30) mmol/L BUN 6 L (7-17) mg/dL Glucose 111 H (74-99) mg/dL Ur Random Sodium <20 L (40-220) mmol/L Assessment and Plan Assessment: 1. Abdominal pain/constipation; patient has had multiple admissions recently for constipation; reports she does not follow-up with or PCP at home and prefers to come to ED; I have started patient on lactulose 20 g by mouth twice a day with plans to maintain her on a 20 g daily dose with further adjustments as needed 2. Marked hyponatremia; start patient on normal saline at 75 mL an hour; monitor strict SAMANTHA's and renal function with electrolytes; we will restrict oral fluids if sodium levels don't improve 3. Hypothyroidism; patient is clinically hypothyroid; labs completed in ED reveals a TSH of 5.27 and free T4 of 1.88; patient is clinically hypothyroid; we will increase levothyroxine 200 MCG daily and recommend repeat TSH and free T4 levels in 4-6 weeks 4. Hypertension; amlodipine 2.5 mg daily 5. Hyperlipidemia; continue Crestor 5 mg as directed DVT prophylaxis; SCDs CODE STATUS; full code
[2021-07-22] MEDS: LEVOTHYROXINE 100 MCG TAB PO SCH (08:35)
[2021-07-22] MEDS: SODIUM CHLORIDE 0.9% 1,000 ML IV SCH (08:36)
[2021-07-22] MEDS: amLODIPine 2.5 MG TAB PO SCH (08:36)
[2021-07-22] MEDS: LACTULOSE 20 GM/30 ML CUP PO SCH ×2 (08:36→09:25)
[2021-07-22 11:37] LABS: African American GFR (CKD) 96.9 (60.0-200.0); Anion Gap 11.8 mmol/L (4.00-12.00); BUN/Creat Ratio 11.43 Ratio (12.00-20.00); Calcium 8.6 mg/dL (8.7-10.3); Carbon Dioxide 18.2 mmol/L (21.6-31.8); Non-African American GFR(CKD) 83.6 (60.0-200.0); Potassium 4.1 mmol/L (3.5-5.5)
[2021-07-22 11:57] VITALS: BP 157/70; PULSE 67; RESP 14; TEMP 97.5
== END 2021-07-22 16:58 | disposition home or self-care (01) | DRG 644 ==
LOC: EC 00:19 → 6NMEDSUR 02:31 → OBSVTOIN 08:18
PROVIDERS: ADMIT Hospitalist; ATTEND Hospitalist
DX: E03.9 Hypothyroidism, unspecified (principal); K86.1 Other chronic pancreatitis; K86.2 Cyst of pancreas; E87.1 Hypo-osmolality and hyponatremia; K59.00 Constipation, unspecified; E78.5 Hyperlipidemia, unspecified; I10 Essential (primary) hypertension; K21.9 Gastro-esophageal reflux disease without esophagitis; M19.90 Unspecified osteoarthritis, unspecified site; L98.9 Disorder of the skin and subcutaneous tissue, unspecified; M51.36 Other intervertebral disc degeneration, lumbar region; G54.0 Brachial plexus disorders; D25.9 Leiomyoma of uterus, unspecified; E55.9 Vitamin D deficiency, unspecified; L40.9 Psoriasis, unspecified; R29.6 Repeated falls; Z79.899 Other long term (current) drug therapy; Z79.890 Hormone replacement therapy; Z20.822 Contact with and (suspected) exposure to COVID-19; Z90.710 Acquired absence of both cervix and uterus; Z96.1 Presence of intraocular lens; Z98.41 Cataract extraction status, right eye; Z98.42 Cataract extraction status, left eye; Z88.1 Allergy status to other antibiotic agents; Z88.8 Allergy status to other drugs, medicaments and biological substances; Z88.5 Allergy status to narcotic agent; Z87.19 Personal history of other diseases of the digestive system; Z90.49 Acquired absence of other specified parts of digestive tract; Z86.14 Personal history of Methicillin resistant Staphylococcus aureus infection; Z91.81 History of falling
CPT/HCPCS: 36415; 74018; 80048; 80053; 81001; 83690; 83930; 83935; 84300; 84439; 84443; 84550; 85025; 87635; 96374; 99285

== ENCOUNTER → 2021-07-29 | Outpatient (CLI) | payer MEDICARE ==
--- NOTE | 2021-07-30 13:51 | MM ---
Reason for exam: screening (asymptomatic). Last mammogram was performed 1 year and 1 month ago. History: Patient is postmenopausal. Family history of breast cancer in maternal cousin at age 38. Took estrogen for 1 year beginning at age 54. Physical Findings: A clinical breast exam by your physician is recommended on an annual basis and results should be correlated with mammographic findings. MG 3D Screening Mammo W/Cad Bilateral CC and MLO view(s) were taken. Prior study comparison: July 03, 2020, bilateral MG 3d screening mammo w/cad. March 24, 2019, bilateral MG 3d screening mammo w/cad. December 22, 2017, bilateral MG 3d screening mammo w/cad. The breast tissue is heterogeneously dense. This may lower the sensitivity of mammography. Possible faint large group versus regional calcifications 12 o'clock anterior left breast. Further magnification views recommended. ASSESSMENT: Incomplete: need additional imaging evaluation, BI-RAD 0 RECOMMENDATION: Special view mammogram of the left breast. (magnification) If lesion persists on supplemental views, image directed ultrasound is recommended. [facility] will attempt to contact patient to return for supplemental views and ultrasound if indicated.
== END | disposition home or self-care (01) ==
LOC: RADMAMWWP 09:00
PROVIDERS: ATTEND Family Medicine
DX: Z12.31 Encounter for screening mammogram for malignant neoplasm of breast (principal); Z80.3 Family history of malignant neoplasm of breast; Z78.0 Asymptomatic menopausal state
CPT/HCPCS: 77063; 77067

== ENCOUNTER → 2021-08-01 | Outpatient (CLI) | payer MEDICARE ==
--- NOTE | 2021-08-01 12:49 | MM ---
Reason for exam: additional evaluation requested from abnormal screening. Last mammogram was performed less than 1 month ago. History: Patient is postmenopausal. Family history of breast cancer in maternal cousin at age 38. Took estrogen for 1 year beginning at age 54. Physical Findings: Nurse did not find any significant physical abnormalities on exam. MG 3D Work Up W/Cad LT CC with magnification, LM with magnification, and LM view(s) were taken of the left breast. Prior study comparison: July 29, 2021, bilateral MG 3d screening mammo w/cad. July 03, 2020, bilateral MG 3d screening mammo w/cad. The breast tissue is heterogeneously dense. This may lower the sensitivity of mammography. Scattered benign appearing calcifications. These results were verbally communicated with the patient and result sheet given to the patient on 08/01/21. ASSESSMENT: Benign, BI-RAD 2 RECOMMENDATION: Return to routine screening mammogram schedule for both breasts.
== END | disposition home or self-care (01) ==
LOC: RADMAMWWP 08:37
PROVIDERS: ATTEND Family Medicine
DX: R92.8 Other abnormal and inconclusive findings on diagnostic imaging of breast (principal); Z78.0 Asymptomatic menopausal state; Z80.3 Family history of malignant neoplasm of breast
CPT/HCPCS: 77065; G0279; 77061

== ENCOUNTER → 2022-04-02 | Outpatient (CLI) | payer MEDICARE ==
--- NOTE | 2022-04-02 10:09 | XR ---
EXAMINATION TYPE: XR wrist complete BILATERAL DATE OF EXAM: 04/02/2022 COMPARISON: NONE HISTORY: Pain TECHNIQUE: Four views submitted. FINDINGS: The osseous structures are intact. There is narrowing of the radiocarpal joint bilaterally. Narrowing of the first carpometacarpal joint bilaterally greater on the left. Mild diffuse osteopenia. And the re is no acute fracture or dislocation. IMPRESSION: 1. Arthropathy with severe changes seen involving the first carpometacarpal joint on the left. Correl ate for osteoarthritis.
--- NOTE | 2022-04-02 10:10 | XR ---
EXAMINATION TYPE: XR hand complete bilateral DATE OF EXAM: 04/02/2022 COMPARISON: NONE HISTORY: Pain TECHNIQUE: Three views are submitted of each hand. FINDINGS: Right hand: There is narrowing of all DIP joints with erosive changes involving the fourth fifth digi ts. Diffuse osteopenia. Narrowing of the radiocarpal joint and mild narrowing of the first carpometac arpal joint. Left hand: There is severe narrowing of the DIP joints most noted involving the third through fifth d igits with central erosion of the third and fifth digits. Diffuse osteopenia. Severe narrowing of the first carpometacarpal joint. Narrowing of the radiocarpal joint. IMPRESSION: 1. Correlate for erosive osteoarthritis.
== END | disposition home or self-care (01) ==
LOC: RADXRMAIN 08:23
PROVIDERS: ATTEND Family Medicine
DX: M18.11 Unilateral primary osteoarthritis of first carpometacarpal joint, right hand (principal)

== ENCOUNTER 2022-04-20 14:57 | Observation (INO) | payer MEDICARE ==
[2022-04-20 15:35] LABS: Appearance,Urine Clear (Clear); Bacteria,Urine Rare /hpf; Bilirubin,Urine Negative (Negative); Blood,Urine Trace (Negative); Color,Urine Yellow; Glucose,Urine (UA) Negative (Negative); Hyaline Casts,Urine 1 /lpf (0-2); Ketones,Urine Negative (Negative); Leukocyte Esterase,Urine Trace (Negative); Mucus,Urine Occasional /hpf; Nitrite,Urine Negative (Negative); Protein,Urine Negative (Negative); RBC,Urine 3 /hpf (0-5); Specific Gravity,Urine 1.015 (1.001-1.035); Squamous Epithelial Cell,Urine 1 /hpf (0-4); Urobilinogen,Urine <2.0 mg/dL (<2.0); WBC,Urine 1 /hpf (0-5)
[2022-04-20 15:38] LABS: Basophils # (A) 0.1 k/uL (0-0.2); Basophils % (A) 1 %; Eosinophils # (A) 0.1 k/uL (0-0.7); Eosinophils % (A) 1 %; HCT 33.7 % (34.0-46.0); HGB 10.9 gm/dL (11.4-16.0); Lymphocytes # (A) 1.9 k/uL (1.0-4.8); Lymphocytes % (A) 27 %; MCH 29.5 pg (25.0-35.0); MCHC 32.2 g/dL (31.0-37.0); MCV 91.6 fL (80.0-100.0); Mean Platelet Volume 7.6; Monocytes # (A) 0.4 k/uL (0-1.0); Monocytes % (A) 6 %; Neutrophils # (A) 4.4 k/uL (1.3-7.7); Neutrophils % (A) 61 %; Platelet Count 293 k/uL (150-450); RBC 3.68 m/uL (3.80-5.40); RDW 13.2 % (11.5-15.5); WBC 7.1 k/uL (3.8-10.6)
[2022-04-20 15:45] LABS: ALT 11 U/L (4-34); AST 21 U/L (14-36); African American GFR (CKD) >90 (>60 ml/min/1.73 sqM); Albumin 3.6 g/dL (3.5-5.0); Alkaline Phosphatase 66 U/L (38-126); Amylase 39 U/L (30-110); Anion Gap 6 mmol/L; Blood Urea Nitrogen 20 mg/dL (7-17); Carbon Dioxide 25 mmol/L (22-30); Chloride 104 mmol/L (98-107); Glucose 164 mg/dL (74-99); Lipase 167 U/L (23-300); Non-African American GFR(CKD) 82 (>60 ml/min/1.73 sqM); Sodium 135 mmol/L (137-145); Total Bilirubin 0.3 mg/dL (0.2-1.3)
--- NOTE | 2022-04-20 15:57 | XR ---
EXAMINATION TYPE: XR KUB DATE OF EXAM: 04/20/2022 COMPARISON: 07/20/2021 HISTORY: Pain TECHNIQUE: Single view upright FINDINGS: The bowel gas pattern is normal. No sign of intestinal obstruction or pneumoperitoneum. Fec al pattern is normal. Lung bases are clear. There are clips from cholecystectomy. No evidence of a ma ss. IMPRESSION: Nonacute abdomen. No adverse change.
[2022-04-20] MEDS ORDERED: HYDROmorphone 0.5 MG/0.5 ML SYRINGE IVP STA (16:10)
--- NOTE | 2022-04-20 16:14 | ED ---
General Adult HPI - General Chief complaint: Abdominal Pain Stated complaint: Abd Pain Time Seen by Provider: 04/20/22 15:44 Source: patient Mode of arrival: wheelchair Limitations: no limitations - History of Present Illness Initial comments: Dictation was produced using [employer] dictation software. please excuse any grammatical, word or spelling errors. Chief Complaint: 76-year-old female presents to the emergency department for epi gastric abdominal pain History of Present Illness: Patient is a 76-year-old female she has past medical history of pancreatic cysts, hypertension dyslipidemia chronic pain. She presents to the emergency department for severe epigastric pain starting this morning. Patient denies any associated nausea. No vomiting. No diarrhea. Patient denies any constitutional symptoms. Patient she's had similar symptoms in the past though not this severe. She has a history of multiple spinal surgeries. She does not take anticoagulation medications. Patient has history of partial small bowel obstruction. Patient states the pain is severe. It radiates up and down the abdomen. The ROS documented in this emergency department record has been reviewed and confirmed by me. Those systems with pertinent positive or negative responses have been documented in the HPI. All other systems are other negative and/or noncontributory. PHYSICAL EXAM: General Impression: Alert and oriented x3, not in acute distress HEENT: Normocephalic atraumatic, extra-ocular movements intact, pupils equal and reactive to light bilaterally, mucous membranes moist. Cardiovascular: Heart regular rate and rhythm Chest: Able to complete full sentences, no retractions, no tachypnea Abdomen: abdomen soft, palpatory tenderness to the epigastric area, non- distended, no organomegaly Musculoskeletal: Pulses present and equal in all extremities, no peripheral edema Motor: no focal deficits noted Neurological: CN II-XII grossly intact, no focal motor or sensory deficits noted Skin: Intact with no visualized rashes Psych: Normal affect and mood ED course: 76-year-old female presents to the emergency Department for reported severe acute epigastric abdominal pain. Patient's well-appearing at the bedside. He has reproducible palpatory tenderness in the epigastric area. Vital signs upon arrival are within acceptable limits. Patient is a CT from June of last year that showed resolution of bowel obstruction. No other abnormalities noted in the body of the report regarding the abdomen. Laboratory evaluation obtained per it CBC unremarkable. Metabolic panel is negative. Urinalysis is negative. KUB ordered by triage nurse per advanced triage protocol followed be unremarkable. Computed tomography scan of the abdomen and pelvis was obtained because patient is complaining of severe pain despite well-appearing nature at the bedside. CT shows dilated small bowel in the lower abdomen suggestive of mechanical obstruction. Patient reevaluated bedside and is agreeable for hospitalization with consultation to surgeon. Patient has established care with Dr. Camara. [facility]. EKG interpretation: Ventricular rate 52, sinus bradycardia, NM interval 200, QS 86, QTC 442. No NM prolongation, no QTC prolongation, no ST or T-wave changes noted. EKG compared to 06/29/2021 showing no changes. Overall, this EKG is unremarkable - Related Data Home Medications Medication Instructions Recorded Confirmed Rosuvastatin Calcium 5 mg PO SUWE 08/08/19 04/20/22 amLODIPine [Norvasc] 2.5 mg PO DAILY 05/17/21 04/20/22 Cholecalciferol [Vitamin D3 (25 25 mcg PO DAILY 04/20/22 04/20/22 Mcg = 1000 Iu)] Diclofenac Sodium Gel [Voltaren 1 applic TOPICAL QID 04/20/22 04/20/22 Gel] Previous Rx's Medication Instructions Recorded Levothyroxine Sodium [Synthroid] 100 mcg PO DAILY@0630 #30 tab 07/22/21 Sertraline HCl [Zoloft] 25 mg PO DAILY #30 tab 07/22/21 Allergies Allergy/AdvReac Type Severity Reaction Status Date / Time clindamycin Allergy Rash/Hives Verified 04/20/22 16:35 atorvastatin calcium AdvReac LEG CRAMPS Verified 04/20/22 16:35 [From Lipitor] morphine AdvReac Nausea & Verified 04/20/22 16:35 Vomiting Review of Systems ROS Statement: Those systems with pertinent positive or pertinent negative responses have been documented in the HPI. ROS Other: All systems not noted in ROS Statement are negative. Past Medical History Past Medical History: Chest Pain / Angina, GERD/Reflux, Hyperlipidemia, Hypertension, Osteoarthritis (OA), Skin Disorder, Thyroid Disorder Additional Past Medical History / Comment(s): Hx. pancreatitis with pancreatic CYSTS. PSORIASISlt ankle. angina, vitamin D deficiency, degenerative disc disease of the CERIVAL AND lumbar spine unable to lift anything over 10# or stand for long periods of time. Diverticulitis. Bronchits. UTERINE fibroids. Falls. Hiatal hernia History of Any Multi-Drug Resistant Organisms: MRSA, Other MDRO Date of last positivie culture/infection: 2013 in [place] [facility] MDRO Source:: spider bite on lt leg Past Surgical History: Adenoidectomy, Back Surgery, Bowel Resection, Cholecystectomy, Hernia Repair, Hysterectomy, Orthopedic Surgery, Tonsillectomy Additional Past Surgical History / Comment(s): Anterior cervical discectomy with fusion(toal 3 sx has wire in neck) , lumbar fusion 3-screws in back. R hip surgery(NOT A HIP REPLACEMENT). Left 1st rib removal r/t thoracic outlet syndrome. Hiatal hernia surg. Bilateral cataract surgery with lens implant Lt elbow tendon release. Sx on gums d/t infection. Dental implant Past Anesthesia/Blood Transfusion Reactions: No Reported Reaction Additional Past Anesthesia/Blood Transfusion Reaction / Comment(s): blood transfusion in 1969-no reaction Past Psychological History: No Psychological Hx Reported Smoking Status: Never smoker Past Alcohol Use History: None Reported Past Drug Use History: None Reported - Past Family History Father History Unknown: Yes Family Medical History: Coronary Artery Disease (CAD) Additional Family Medical History / Comment(s): aortic aneurysm at 72 Mother Family Medical History: CVA/TIA Brother(s) Family Medical History: No Reported History Sister(s) Family Medical History: Vascular Disorder Son(s) Family Medical History: No Reported History Daughter(s) Family Medical History: Unable to Obtain General Exam Limitations: no limitations Course Vital Signs 04/20/22 15:03 Temperature 97.7 F Pulse Rate 56 L Respiratory 18 Rate Blood Pressure 94/51 O2 Sat by Pulse 100 Oximetry Medical Decision Making - Lab Data Result diagrams: 04/20/22 15:28 04/20/22 15:28 Lab Results 04/20/22 04/20/22 04/20/22 Range/Units 15:28 15:28 15:28 WBC 7.1 (3.8-10.6) k/uL RBC 3.68 L (3.80-5.40) m/uL Hgb 10.9 L (11.4-16.0) gm/dL Hct 33.7 L (34.0-46.0) % MCV 91.6 (80.0-100.0) fL MCH 29.5 (25.0-35.0) pg MCHC 32.2 (31.0-37.0) g/dL RDW 13.2 (11.5-15.5) % Plt Count 293 (150-450) k/uL MPV 7.6 Neutrophils % 61 % Lymphocytes % 27 % Monocytes % 6 % Eosinophils % 1 % Basophils % 1 % Neutrophils # 4.4 (1.3-7.7) k/uL Lymphocytes # 1.9 (1.0-4.8) k/uL Monocytes # 0.4 (0-1.0) k/uL Eosinophils # 0.1 (0-0.7) k/uL Basophils # 0.1 (0-0.2) k/uL Sodium 135 L (137-145) mmol/L Potassium 4.0 (3.5-5.1) mmol/L Chloride 104 (98-107) mmol/L Carbon Dioxide 25 (22-30) mmol/L Anion Gap 6 mmol/L BUN 20 H (7-17) mg/dL Creatinine 0.72 (0.52-1.04) mg/dL Est GFR (CKD-EPI)AfAm >90 (>60 ml/min/1.73 sqM) Est GFR (CKD-EPI)NonAf 82 (>60 ml/min/1.73 sqM) Glucose 164 H (74-99) mg/dL Calcium 9.0 (8.4-10.2) mg/dL Total Bilirubin 0.3 (0.2-1.3) mg/dL AST 21 (14-36) U/L ALT 11 (4-34) U/L Alkaline Phosphatase 66 (38-126) U/L Troponin I <0.012 (0.000-0.034) ng/mL Total Protein 6.0 L (6.3-8.2) g/dL Albumin 3.6 (3.5-5.0) g/dL Amylase 39 (30-110) U/L Lipase 167 (23-300) U/L Urine Color Urine Appearance (Clear) Urine pH (5.0-8.0) Ur Specific [place] (1.001-1.035) Urine Protein (Negative) Urine Glucose (UA) (Negative) Urine Ketones (Negative) Urine Blood (Negative) Urine Nitrite (Negative) Urine Bilirubin (Negative) Urine Urobilinogen (<2.0) mg/dL Ur Leukocyte Esterase (Negative) Urine RBC (0-5) /hpf Urine WBC (0-5) /hpf Ur Squamous Epith Cells (0-4) /hpf Urine Bacteria (None) /hpf Hyaline Casts (0-2) /lpf Urine Mucus (None) /hpf 04/20/22 Range/Units 15:28 WBC (3.8-10.6) k/uL RBC (3.80-5.40) m/uL Hgb (11.4-16.0) gm/dL Hct (34.0-46.0) % MCV (80.0-100.0) fL MCH (25.0-35.0) pg MCHC (31.0-37.0) g/dL RDW (11.5-15.5) % Plt Count (150-450) k/uL MPV Neutrophils % % Lymphocytes % % Monocytes % % Eosinophils % % Basophils % % Neutrophils # (1.3-7.7) k/uL Lymphocytes # (1.0-4.8) k/uL Monocytes # (0-1.0) k/uL Eosinophils # (0-0.7) k/uL Basophils # (0-0.2) k/uL Sodium (137-145) mmol/L Potassium (3.5-5.1) mmol/L Chloride (98-107) mmol/L Carbon Dioxide (22-30) mmol/L Anion Gap mmol/L BUN (7-17) mg/dL Creatinine (0.52-1.04) mg/dL Est GFR (CKD-EPI)AfAm (>60 ml/min/1.73 sqM) Est GFR (CKD-EPI)NonAf (>60 ml/min/1.73 sqM) Glucose (74-99) mg/dL Calcium (8.4-10.2) mg/dL Total Bilirubin (0.2-1.3) mg/dL AST (14-36) U/L ALT (4-34) U/L Alkaline Phosphatase (38-126) U/L Troponin I (0.000-0.034) ng/mL Total Protein (6.3-8.2) g/dL Albumin (3.5-5.0) g/dL Amylase (30-110) U/L Lipase (23-300) U/L Urine Color Yellow Urine Appearance Clear (Clear) Urine pH 7.0 (5.0-8.0) Ur Specific [place] 1.015 (1.001-1.035) Urine Protein Negative (Negative) Urine Glucose (UA) Negative (Negative) Urine Ketones Negative (Negative) Urine Blood Trace H (Negative) Urine Nitrite Negative (Negative) Urine Bilirubin Negative (Negative) Urine Urobilinogen <2.0 (<2.0) mg/dL Ur Leukocyte Esterase Trace H (Negative) Urine RBC 3 (0-5) /hpf Urine WBC 1 (0-5) /hpf Ur Squamous Epith Cells 1 (0-4) /hpf Urine Bacteria Rare H (None) /hpf Hyaline Casts 1 (0-2) /lpf Urine Mucus Occasional H (None) /hpf Disposition Clinical Impression: Bowel obstruction Disposition: ADMITTED IP TO THIS HOSP Condition: Fair Referrals: Roxanna Lozano MD [Primary Care Provider] - 1-2 days Decision Time: 17:56
[2022-04-20] MEDS ORDERED: ONDANSETRON 4 MG/2 ML VIAL IVP STA (16:30)
--- NOTE | 2022-04-20 17:35 | CT ---
EXAMINATION TYPE: CT abdomen pelvis w con DATE OF EXAM: 04/20/2022 COMPARISON: 07/01/2021 HISTORY: Severe epigastric pain, vomiting CT DLP: 610.8 mGycm Automated exposure control for dose reduction was used. CONTRAST: Performed with IV Contrast, patient injected with 100 mL of Isovue 300. The lung bases are clear of consolidation. There is mild subsegmental atelectasis left lung base. The re is previous surgery at the gastroesophageal junction. Liver and spleen are intact. There are clips from cholecystectomy. There is mild ectasia of the biliary tree. The common bile duct measures 1.5 c m. No obstructing mass seen. No evidence of pancreatic mass. The stomach is intact. There is no adrenal mass. Kidneys show satisfactory contrast opacification. There is no hydronephrosi s. Ureters are not dilated. There is no retroperitoneal adenopathy. Urinary bladder is almost empty. No pelvic mass. No free fluid in the pelvis. Multiple distended fluid-filled small bowel loops in the lower abdomen. Small bowel dilated up to 3.1 cm. Transition point not seen. The lumbar vertebra show a mild degenerative first-degree L3-4 spondylolisthesis. There is no lumbar compression fracture. Mu ltilevel mild degenerative disc space narrowing. The bony pelvis is intact. The hip joints are intact . IMPRESSION: Dilated small bowel in the lower abdomen suggestive of partial mechanical obstruction. Transition poi nt not seen. Distal small bowel not dilated. Abnormality appears new compared to old exam. There is a mildly dilated biliary tree which is new compared to old exam. Distal common bile duct obs truction should be considered and MRCP or ultrasound exam might be helpful for further evaluation if clinically indicated.
[2022-04-20] MEDS ORDERED: HYDROmorphone 1 MG/ML 1 ML SYRINGE IVP PRN (17:54)
[2022-04-20] MEDS ORDERED: NALOXONE 0.4 MG/ML 1 ML VIAL IV PRN (17:54)
[2022-04-20] MEDS ORDERED: ONDANSETRON 4 MG/2 ML VIAL IVP PRN (17:54)
[2022-04-20] MEDS: SODIUM CHLORIDE 0.9% 1,000 ML IV SCH (18:30)
[2022-04-21] MEDS: SODIUM CHLORIDE 0.9% 1,000 ML IV SCH ×2 (11:42→16:22)
--- NOTE | 2022-04-21 11:53 | P.HPIM ---
History of Present Illness Patient was on 6-year-old female came in with complaints of her severe epigastric abdominal pain found to have a partial small bowel obstruction probably ileus without any transition point. Patient presently doesn't have any NG tube nausea improved patient does have bowel sounds in past gas yet didn't move her bowel yet. General surgery was consulted patient was subsequently admitted. Patient had a similar symptoms in the past. REVIEW OF SYSTEMS: CONSTITUTIONAL: No fever, no malaise, no fatigue. HEENT: No recent visual problems or hearing problems. Denied any sore throat. CARDIOVASCULAR: No chest pain, orthopnea, PND, no palpitations, no syncope. PULMONARY: No shortness of breath, no cough, no hemoptysis. GASTROINTESTINAL: As mentioned in HPI NEUROLOGICAL: No headaches, no weakness, no numbness. HEMATOLOGICAL: Denies any bleeding or petechiae. GENITOURINARY: Denies any burning micturition, frequency, or urgency. MUSCULOSKELETAL/RHEUMATOLOGICAL: Denies any joint pain, swelling, or any muscle pain. ENDOCRINE: Denies any polyuria or polydipsia. The rest of the 14-point review of systems is negative. PHYSICAL EXAMINATION: GENERAL: The patient is alert and oriented x3, not in any acute distress. Well developed, well nourished. HEENT: Pupils are round and equally reacting to light. EOMI. No scleral icterus. No conjunctival pallor. Normocephalic, atraumatic. No pharyngeal erythema. No thyromegaly. CARDIOVASCULAR: S1 and S2 present. No murmurs, rubs, or gallops. PULMONARY: Chest is clear to auscultation, no wheezing or crackles. ABDOMEN: Soft, nontender, nondistended, normoactive bowel sounds. No palpable organomegaly. MUSCULOSKELETAL: No joint swelling or deformity. EXTREMITIES: No cyanosis, clubbing, or pedal edema. NEUROLOGICAL: Gross neurological examination did not reveal any focal deficits. SKIN: No rashes. Assessment and plan -Ileus: Improved symptoms patient remains nothing by mouth probably can be started on clear liquid diet does have bowel sounds in pass gas yet -Mild hyponatremia probably secondary to hypervolemia patient will be continued on IV fluids -Possibility of gastritis patient will be started on IV Protonix -Hypertension and patient is on amlodipine because of low normal blood pressures this will be held -Hyperlipidemia patient will be resumed on the rosuvastatin Hypothyroidism patient will be resumed on levothyroxine DVT prophylaxis: Lovenox Past Medical History Past Medical History: Chest Pain / Angina, GERD/Reflux, Hyperlipidemia, Hypertension, Osteoarthritis (OA), Skin Disorder, Thyroid Disorder Additional Past Medical History / Comment(s): Hx. pancreatitis with pancreatic CYSTS. PSORIASISlt ankle. angina, vitamin D deficiency, degenerative disc disease of the CERIVAL AND lumbar spine unable to lift anything over 10# or stand for long periods of time. Diverticulitis. Bronchits. UTERINE fibroids. Falls. Hiatal hernia History of Any Multi-Drug Resistant Organisms: MRSA, Other MDRO Date of last positivie culture/infection: 2013 in [place] [facility] MDRO Source:: spider bite on lt leg Past Surgical History: Adenoidectomy, Back Surgery, Bowel Resection, Ch olecystectomy, Hernia Repair, Hysterectomy, Orthopedic Surgery, Tonsillectomy Additional Past Surgical History / Comment(s): Anterior cervical discectomy with fusion(toal 3 sx has wire in neck) , lumbar fusion 3-screws in back. R hip surgery(NOT A HIP REPLACEMENT). Left 1st rib removal r/t thoracic outlet syndrome. Hiatal hernia surg. Bilateral cataract surgery with lens implant Lt elbow tendon release. Sx on gums d/t infection. Dental implant Past Anesthesia/Blood Transfusion Reactions: No Reported Reaction Additional Past Anesthesia/Blood Transfusion Reaction / Comment(s): blood transfusion in 1969-no reaction Past Psychological History: No Psychological Hx Reported Additional Psychological History / Comment(s): lives alone, senior center, cane at times used Smoking Status: Never smoker Past Alcohol Use History: None Reported Past Drug Use History: None Reported - Past Family History Father History Unknown: Yes Family Medical History: Coronary Artery Disease (CAD) Additional Family Medical History / Comment(s): aortic aneurysm at 72 Mother Family Medical History: CVA/TIA Brother(s) Family Medical History: No Reported History Sister(s) Family Medical History: Vascular Disorder Son(s) Family Medical History: No Reported History Daughter(s) Family Medical History: Unable to Obtain Medications and Allergies Home Medications Medication Instructions Recorded Confirmed Type Rosuvastatin Calcium 5 mg PO SUWE 08/08/19 04/20/22 History amLODIPine [Norvasc] 2.5 mg PO DAILY 05/17/21 04/20/22 History Levothyroxine Sodium [Synthroid] 100 mcg PO DAILY@0630 #30 tab 07/22/21 04/20/22 Rx Sertraline HCl [Zoloft] 25 mg PO DAILY #30 tab 07/22/21 04/20/22 Rx Cholecalciferol [Vitamin D3 (25 25 mcg PO DAILY 04/20/22 04/20/22 History Mcg = 1000 Iu)] Diclofenac Sodium Gel [Voltaren 1 applic TOPICAL QID 04/20/22 04/20/22 History Gel] Allergies Allergy/AdvReac Type Severity Reaction Status Date / Time clindamycin Allergy Rash/Hives Verified 04/20/22 16:35 atorvastatin calcium AdvReac LEG CRAMPS Verified 04/20/22 16:35 [From Lipitor] morphine AdvReac Nausea & Verified 04/20/22 16:35 Vomiting Physical Exam Vitals: Vital Signs Temp Pulse Pulse Resp BP BP Pulse Ox 04/21/22 07:27 97.5 F L 57 L 16 110/60 98 04/21/22 02:24 97.7 F 63 18 108/46 97 04/20/22 22:30 97.6 F 63 17 125/63 99 04/20/22 20:56 97 F L 63 18 121/53 98 04/20/22 18:32 58 L 16 122/50 97 04/20/22 15:03 97.7 F 56 L 18 94/51 100 Intake and Output 04/20/22 04/21/22 04/21/22 22:59 06:59 14:59 Other: Voiding Method Bedpan # Voids 0 1 1 Weight 49.895 kg Results CBC & Chem 7: 04/20/22 15:28 04/20/22 15:28 Labs: Abnormal Lab Results - Last 24 Hours (Table) 04/20/22 04/20/22 04/20/22 Range/Units 15:28 15:28 15:28 RBC 3.68 L (3.80-5.40) m/uL Hgb 10.9 L (11.4-16.0) gm/dL Hct 33.7 L (34.0-46.0) % Sodium 135 L (137-145) mmol/L BUN 20 H (7-17) mg/dL Glucose 164 H (74-99) mg/dL Total Protein 6.0 L (6.3-8.2) g/dL Urine Blood Trace H (Negative) Ur Leukocyte Esterase Trace H (Negative) Urine Bacteria Rare H (None) /hpf Urine Mucus Occasional H (None) /hpf
[2022-04-21] MEDS: SERTRALINE 25 MG TAB PO SCH (12:32)
[2022-04-21] MEDS: PANTOPRAZOLE 40 MG/10 ML VIAL IVP SCH (12:32)
--- NOTE | 2022-04-21 14:32 | P.GSCN ---
History of Present Illness Consult date: 04/21/22 History of present illness: Patient seen and examined at 9 AM this morning CHIEF COMPLAINT: Abdominal pain HISTORY OF PRESENT ILLNESS: This is a 76-year-old female presented to the hospital with complaints of epigastric abdominal pain and lower abdominal pain. Patient reports the pain started yesterday. She does report having bowel movements yesterday and flatus. She also had presented with nausea and vomiting and this has now resolved. Computed tomography scan abdomen and pelvis was completed showing concerns for partial mechanical small bowel obstruction. Patient has had prior bowel obstruction that was treated conservatively. She does have past surgical history which includes repair of a hiatal hernia, lysis of adhesions, bowel resection and cholecystectomy. She denies any fever, chills or sweats. This morning the nausea and vomiting have resolved. Patient seen and examined with Dr. huffman PAST MEDICAL HISTORY: Hypertension, hyperlipidemia, osteoarthritis, hypothyroidism, pancreatic cysts with pancreatitis, degenerative disc disease of the cervical and lumbar spine with previous surgical intervention PAST SURGICAL HISTORY: See list. MEDICATIONS: See list. ALLERGIES: See list. SOCIAL HISTORY: No illicit drug use. REVIEW OF SYSTEMS: CONSTITUTIONAL: Denies fever or chills. HEENT: Denies blurred vision, vision changes, or eye pain. Denies hemoptysis CARDIOVASCULAR: Denies chest pain or pressure. RESPIRATORY: No shortness of breath. GASTROINTESTINAL: See HPI for pertinent findings HEMATOLOGIC: Denies bleeding disorders. GENITOURINARY: Denies any blood in urine or increased urinary frequency. SKIN: Denies pruitis. Denies rash. PHYSICAL EXAM: VITAL SIGNS: Reviewed GENERAL: Well-developed in no acute distress. HEENT: No sclera icterus. Extraocular movements grossly intact. Moist buccal mucosa. Head is atraumatic, normocephalic. No nasal drainage. ABDOMEN: Soft. Nondistended. Tenderness with palpation of the epigastric area and across the lower abdomen NEUROLOGIC: Alert and oriented. Cranial nerves II through XII grossly intact. LABORATORY DATA: WBC is 7.1 Hgb 10.9 platelets 293 Sodium 135 potassium is 4.0 creatinine 0.72 LFTs normal lipase 167 IMAGING: Computed tomography scan abdomen and pelvis dilated small bowel in the lower abdomen suggestive partial mechanical obstruction. Transition point not seen. Distal small bowel not dilated. Abnormality appears new compared to old exam. There is mildly dilated biliary tree which is new compared to old exam. Distal common bile duct obstruction should be considered an MRCP or ultrasound exam height be helpful for further evaluation indicated. ASSESSMENT: 1. Abdominal pain 2. Possible partial mechanical small bowel obstruction now resolved PLAN: -Start full liquid diet -Continue IV fluids -Continue supportive care -We will observe Thank you for this consultation Physician Hazmat Cdl Driver note has been reviewed by physician. Signing provider agrees with the documented findings, assessment, and plan of care. Past Medical History Past Medical History: Chest Pain / Angina, GERD/Reflux, Hyperlipidemia, Hypertension, Osteoarthritis (OA), Skin Disorder, Thyroid Disorder Additional Past Medical History / Comment(s): Hx. pancreatitis with pancreatic CYSTS. PSORIASISlt ankle. angina, vitamin D deficiency, degenerative disc disease of the CERIVAL AND lumbar spine unable to lift anything over 10# or stand for long periods of time. Diverticulitis. Bronchits. UTERINE fibroids. Falls. Hiatal hernia History of Any Multi-Drug Resistant Organisms: MRSA, Other MDRO Year Discovered:: 2013 in [place] [facility] MDRO Source:: spider bite on lt leg Past Surgical History: Adenoidectomy, Back Surgery, Bowel Resection, Cholecystectomy, Hernia Repair, Hysterectomy, Orthopedic Surgery, Tonsillectomy Additional Past Surgical History / Comment(s): Anterior cervical discectomy with fusion(toal 3 sx has wire in neck) , lumbar fusion 3-screws in back. R hip surgery(NOT A HIP REPLACEMENT). Left 1st rib removal r/t thoracic outlet syndrome. Hiatal hernia surg. Bilateral cataract surgery with lens implant Lt elbow tendon release. Sx on gums d/t infection. Dental implant Past Anesthesia/Blood Transfusion Reactions: No Reported Reaction Additional Past Anesthesia/Blood Transfusion Reaction / Comm: blood transfusion in 1970-no reaction Past Psychological History: No Psychological Hx Reported Additional Psychological History / Comment(s): lives alone, senior center, cane at times used Smoking Status: Never smoker Past Alcohol Use History: None Reported Past Drug Use History: None Reported - Past Family History Father History Unknown: Yes Family Medical History: Coronary Artery Disease (CAD) Additional Family Medical History / Comment(s): aortic aneurysm at 72 Mother Family Medical History: CVA/TIA Brother(s) Family Medical History: No Reported History Sister(s) Family Medical History: Vascular Disorder Son(s) Family Medical History: No Reported History Daughter(s) Family Medical History: Unable to Obtain Medications and Allergies Home Medications Medication Instructions Recorded Confirmed Type Rosuvastatin Calcium 5 mg PO SUWE 08/08/19 04/20/22 History amLODIPine [Norvasc] 2.5 mg PO DAILY 05/17/21 04/20/22 History Levothyroxine Sodium [Synthroid] 100 mcg PO DAILY@0630 #30 tab 07/22/21 04/20/22 Rx Sertraline HCl [Zoloft] 25 mg PO DAILY #30 tab 07/22/21 04/20/22 Rx Cholecalciferol [Vitamin D3 (25 25 mcg PO DAILY 04/20/22 04/20/22 History Mcg = 1000 Iu)] Diclofenac Sodium Gel [Voltaren 1 applic TOPICAL QID 04/20/22 04/20/22 History Gel] Allergies Allergy/AdvReac Type Severity Reaction Status Date / Time clindamycin Allergy Rash/Hives Verified 04/20/22 16:35 atorvastatin calcium AdvReac LEG CRAMPS Verified 04/20/22 16:35 [From Lipitor] morphine AdvReac Nausea & Verified 04/20/22 16:35 Vomiting Surgical - Exam Vital Signs Temp Pulse Resp BP Pulse Ox 97.7 F 56 L 18 94/51 100 04/20/22 15:03 04/20/22 15:03 04/20/22 15:03 04/20/22 15:03 04/20/22 15:03 Results - Labs 04/20/22 15:28 04/20/22 15:28 Abnormal Lab Results - Last 24 Hours (Table) 04/20/22 04/20/22 04/20/22 Range/Units 15:28 15:28 15:28 RBC 3.68 L (3.80-5.40) m/uL Hgb 10.9 L (11.4-16.0) gm/dL Hct 33.7 L (34.0-46.0) % Sodium 135 L (137-145) mmol/L BUN 20 H (7-17) mg/dL Glucose 164 H (74-99) mg/dL Total Protein 6.0 L (6.3-8.2) g/dL Urine Blood Trace H (Negative) Ur Leukocyte Esterase Trace H (Negative) Urine Bacteria Rare H (None) /hpf Urine Mucus Occasional H (None) /hpf Diabetes panel 04/20/22 Range/Units 15:28 Sodium 135 L (137-145) mmol/L Potassium 4.0 (3.5-5.1) mmol/L Chloride 104 (98-107) mmol/L Carbon Dioxide 25 (22-30) mmol/L BUN 20 H (7-17) mg/dL Creatinine 0.72 (0.52-1.04) mg/dL Glucose 164 H (74-99) mg/dL Calcium 9.0 (8.4-10.2) mg/dL AST 21 (14-36) U/L ALT 11 (4-34) U/L Alkaline Phosphatase 66 (38-126) U/L Total Protein 6.0 L (6.3-8.2) g/dL Albumin 3.6 (3.5-5.0) g/dL Calcium panel 04/20/22 Range/Units 15:28 Calcium 9.0 (8.4-10.2) mg/dL Albumin 3.6 (3.5-5.0) g/dL Pituitary panel 04/20/22 Range/Units 15:28 Sodium 135 L (137-145) mmol/L Potassium 4.0 (3.5-5.1) mmol/L Chloride 104 (98-107) mmol/L Carbon Dioxide 25 (22-30) mmol/L BUN 20 H (7-17) mg/dL Creatinine 0.72 (0.52-1.04) mg/dL Glucose 164 H (74-99) mg/dL Calcium 9.0 (8.4-10.2) mg/dL Adrenal panel 04/20/22 Range/Units 15:28 Sodium 135 L (137-145) mmol/L Potassium 4.0 (3.5-5.1) mmol/L Chloride 104 (98-107) mmol/L Carbon Dioxide 25 (22-30) mmol/L BUN 20 H (7-17) mg/dL Creatinine 0.72 (0.52-1.04) mg/dL Glucose 164 H (74-99) mg/dL Calcium 9.0 (8.4-10.2) mg/dL Total Bilirubin 0.3 (0.2-1.3) mg/dL AST 21 (14-36) U/L ALT 11 (4-34) U/L Alkaline Phosphatase 66 (38-126) U/L Total Protein 6.0 L (6.3-8.2) g/dL Albumin 3.6 (3.5-5.0) g/dL
[2022-04-21] MEDS: traMADol 50 MG TAB PO SCH ×2 (17:23→23:22)
[2022-04-22] MEDS: traMADol 50 MG TAB PO SCH ×2 (05:38→14:23)
[2022-04-22] MEDS ORDERED: LEVOTHYROXINE 100 MCG TAB PO SCH (06:30)
[2022-04-22] MEDS ORDERED: ENOXAPARIN 40 MG/0.4 ML SYRINGE SQ SCH (09:00)
[2022-04-22] MEDS: SERTRALINE 25 MG TAB PO SCH (09:25)
[2022-04-22] MEDS: PANTOPRAZOLE 40 MG/10 ML VIAL IVP SCH (09:25)
--- NOTE | 2022-04-22 12:25 | P.PN ---
Subjective Progress Note Date: 04/22/22 CHIEF COMPLAINT: Abdominal pain HISTORY OF PRESENT ILLNESS: Patient reports her abdominal pain has resolved. She denies any nausea or vomiting. She is having flatus and diarrhea through the night. She did have a bowel movement formed late this morning. She tolerated full liquids. Afebrile. No new labs Patient seen and examined with Dr. huffman PHYSICAL EXAM: VITAL SIGNS: Reviewed. GENERAL: Well-developed in no acute distress. HEENT: No sclera icterus. Extraocular movements grossly intact. Moist buccal mucosa. Head is atraumatic, normocephalic. ABDOMEN: Soft. Nondistended. Minimal tenderness with palpation lower abdomen NEUROLOGIC: Alert and oriented. Cranial nerves II through XII grossly intact. ASSESSMENT: 1. Abdominal pain 2. Possible partial mechanical small bowel obstruction now resolved PLAN: -Advance diet to low fiber -Patient can be discharged from surgical standpoint when medically cleared -Follow up with Dr. huffman in 1 week outpatient Physician Film Composer note has been reviewed by physician. Signing provider agrees with the documented findings, assessment, and plan of care. Objective - Vital Signs Vital signs: Vital Signs Temp 97.5 F L 04/22/22 07:36 Pulse 63 04/22/22 07:36 Resp 16 04/22/22 07:36 BP 120/63 04/22/22 07:36 Pulse Ox 98 04/22/22 07:36 FiO2 Intake & Output 04/21/22 04/22/22 04/22/22 18:59 06:59 18:59 Intake Total 900 Balance 900 Intake: Intake, IV Titration 900 Amount Sodium Chloride 0.9% 1, 900 000 ml @ 75 mls/hr IV . [id number] [facility] Rx#:[id number] Other: Voiding Method Toilet # Voids 1 2 1 # Bowel Movements 1 - Labs CBC & Chem 7: 04/20/22 15:28 04/20/22 15:28
[2022-04-22 14:36] VITALS: BP 129/73; PULSE 70; RESP 18; TEMP 97.8
[2022-04-23] MEDS ORDERED: NON FORMULARY DRUG (Rosuvastatin Calcium [Rosuvastatin Calcium] 5 MG Tablet) PO SCH (09:00)
--- NOTE | 2022-04-28 06:36 | P.DS ---
Providers Date of admission: 04/20/22 17:54 Expected date of discharge: 04/22/22 Attending physician: Gerardo Acosta Consults: 04/20/22 17:53 Consult Physician Routine Consulting Provider: Deng Camara Consult Reason/Comments: bowel obstruction Do you want consulting provider notified?: Yes Primary care physician: Roxanna Lozano Hospital Course: Final diagnosis -Ileus: Improved -Mild hyponatremia probably secondary to hypervolemia -Possibility of gastritis -Hypertension -Hyperlipidemia -Hypothyroidism -DVT prophylaxis Discharge disposition Patient is being discharged in a stable condition with guarded prognosis to home. Patient will follow-up with Dr. Lozano in the outpatient setting upon discharge. Total time taken is greater than 35 minutes. Hospital course This is a 76-year-old female who was recently admitted with ileus vs partial small bowel obstruction. Surgery evaluated the patient recommending conservative management. Patient did have a bowel movement and is tolerating diet. Currently no reports of chest pain, shortness of breath, or palpitations. Patient is afebrile. No reports of nausea or vomiting and patient is tolerating diet. Patient will be discharged home today. Guarded prognosis Physical exam: Gen: This is a 76 year old awake alert and oriented x3. thin built HEENT: Head is atraumatic, normocephalic. Pupils equal, round. Sclerae is anicteric. NECK: Supple. No JVD. No lymphadenopathy. No thyromegaly. LUNGS: Clear to auscultation. No wheezes or rhonchi. No intercostal retractions. HEART: Regular rate and rhythm. No murmur. ABDOMEN: Soft. Bowel sounds are present. No masses. No tenderness. EXTREMITIES: No pedal edema. No calf tenderness. NEUROLOGICAL: Patient is awake, alert and oriented x3. Cranial nerves 2 through 12 are grossly intact. Please refer to medication reconciliation sheet for a list of medications. The impression and plan of care has been dictated by Yessi Rogers, Nurse Practitioner as directed. Dr. Vijaya MD I have performed a history and examination and MDM of this patient, discussed the same with the dictator, and agree with the dictator's assessment and plan as written ,documented as a scribe. Based on total visit time, I have performed more than 50% of the visit. Patient Condition at Discharge: Fair Plan - Discharge Summary New Discharge Prescriptions: New traMADol HCl [Ultram] 50 mg PO Q6HR PRN #6 tab PRN Reason: Pain Continue Rosuvastatin Calcium 5 mg PO SUWE Levothyroxine Sodium [Synthroid] 100 mcg PO DAILY@0630 #30 tab Sertraline HCl [Zoloft] 25 mg PO DAILY #30 tab Cholecalciferol [Vitamin D3 (25 Mcg = 1000 Iu)] 25 mcg PO DAILY amLODIPine [Norvasc] 2.5 mg PO DAILY Diclofenac Sodium Gel [Voltaren Gel] 1 applic TOPICAL QID Discharge Medication List Rosuvastatin Calcium 5 mg PO SUWE 08/08/19 [History] amLODIPine [Norvasc] 2.5 mg PO DAILY 05/17/21 [History] Levothyroxine Sodium [Synthroid] 100 mcg PO DAILY@0630 #30 tab 07/22/21 [Rx] Sertraline HCl [Zoloft] 25 mg PO DAILY #30 tab 07/22/21 [Rx] Cholecalciferol [Vitamin D3 (25 Mcg = 1000 Iu)] 25 mcg PO DAILY 04/20/22 [History] Diclofenac Sodium Gel [Voltaren Gel] 1 applic TOPICAL QID 04/20/22 [History] traMADol HCl [Ultram] 50 mg PO Q6HR PRN #6 tab 04/22/22 [Rx] Follow up Appointment(s)/Referral(s): Roxanna Lozano MD [Primary Care Provider] - 1-2 days Deng Camara MD [STAFF PHYSICIAN] - 1 Week Patient Instructions/Handouts: Chest Pain (DC), Bowel Obstruction (DC) Activity/Diet/Wound Care/Special Instructions: Activity Limited until follow-up Patient is to follow-up with primary care provider on discharge Follow-up with hand specialist as discussed Continue current diet Continue taking medications as prescribed Discharge Disposition: HOME SELF-CARE
== END 2022-04-22 15:34 | disposition home or self-care (01) ==
LOC: EC 14:57 → 4SSUR 17:54 → INTOOBSV 17:54 → 6NMEDSUR 20:28 → UNDODISIN 04-22 15:34
PROVIDERS: ADMIT Hospitalist; ATTEND Hospitalist
DX: K56.7 Ileus, unspecified (principal); E87.1 Hypo-osmolality and hyponatremia; I10 Essential (primary) hypertension; E78.5 Hyperlipidemia, unspecified; E03.9 Hypothyroidism, unspecified; L40.9 Psoriasis, unspecified; M19.90 Unspecified osteoarthritis, unspecified site; M50.30 Other cervical disc degeneration, unspecified cervical region; M51.36 Other intervertebral disc degeneration, lumbar region; E55.9 Vitamin D deficiency, unspecified; G89.29 Other chronic pain; Z79.890 Hormone replacement therapy; Z79.899 Other long term (current) drug therapy; Z87.19 Personal history of other diseases of the digestive system; Z88.1 Allergy status to other antibiotic agents; Z88.5 Allergy status to narcotic agent; Z88.8 Allergy status to other drugs, medicaments and biological substances; Z90.49 Acquired absence of other specified parts of digestive tract; Z90.710 Acquired absence of both cervix and uterus; Z86.14 Personal history of Methicillin resistant Staphylococcus aureus infection; Z91.81 History of falling; Z98.41 Cataract extraction status, right eye; Z98.42 Cataract extraction status, left eye; Z96.1 Presence of intraocular lens; Z98.1 Arthrodesis status; Z98.890 Other specified postprocedural states; Z82.3 Family history of stroke; Z82.49 Family history of ischemic heart disease and other diseases of the circulatory system
CPT/HCPCS: 96376 ×2; 96361 ×3; 96372; 96374; 96375; 99285; 36415; 93005; 80053; 82150; 83690; 84484; 85025; 81001; 74018; 74177; G0378 ×4; J2405; J1650; J1170 ×2; C9113 ×2; Q9967

== ENCOUNTER 2022-05-10 09:14 | Emergency (ER) | payer MEDICARE ==
[2022-05-10 09:24] VITALS: RESP 16; TEMP 98.6
[2022-05-10] MEDS ORDERED: KETOROLAC 15 MG/ML 1 ML VIAL IM STA (09:32)
--- NOTE | 2022-05-10 09:34 | ED ---
General Adult HPI - General Chief complaint: Extremity Problem,Nontraumatic Stated complaint: right leg pain Source: patient, EMS, RN notes reviewed, old records reviewed Mode of arrival: EMS Limitations: no limitations - History of Present Illness Initial comments: This is a 77-year-old female who presents emergency Department complaining of chronic right hip pain. Patient states she got up this morning and it is worse today than it was just seen she's having difficulty in breathing so she wanted to come in and be checked out. She states she stopped her primary medical care doctor about this in the past and she is set up for physical therapy on Thursday. Patient states she's had no recent injury to the hip that she knows of. Patient states it's the lateral aspect of the right hip that hurts. Patient denies any swelling redness. Patient denies any fever. Patient denies any calf pain. - Related Data Home Medications Medication Instructions Recorded Confirmed Rosuvastatin Calcium 5 mg PO SUWE 08/08/19 04/20/22 amLODIPine [Norvasc] 2.5 mg PO DAILY 05/17/21 04/20/22 Cholecalciferol [Vitamin D3 (25 25 mcg PO DAILY 04/20/22 04/20/22 Mcg = 1000 Iu)] Diclofenac Sodium Gel [Voltaren 1 applic TOPICAL QID 04/20/22 04/20/22 Gel] Previous Rx's Medication Instructions Recorded Levothyroxine Sodium [Synthroid] 100 mcg PO DAILY@0630 #30 tab 07/22/21 Sertraline HCl [Zoloft] 25 mg PO DAILY #30 tab 07/22/21 traMADol HCl [Ultram] 50 mg PO Q6HR PRN #6 tab 04/22/22 Allergies Allergy/AdvReac Type Severity Reaction Status Date / Time clindamycin Allergy Rash/Hives Verified 05/10/22 09:24 atorvastatin calcium AdvReac LEG CRAMPS Verified 05/10/22 09:24 [From Lipitor] morphine AdvReac Nausea & Verified 05/10/22 09:24 Vomiting Review of Systems ROS Statement: Those systems with pertinent positive or pertinent negative responses have been documented in the HPI. ROS Other: All systems not noted in ROS Statement are negative. Past Medical History Past Medical History: Chest Pain / Angina, GERD/Reflux, Hyperlipidemia, Hypertension, Osteoarthritis (OA), Skin Disorder, Thyroid Disorder Additional Past Medical History / Comment(s): Hx. pancreatitis with pancreatic CYSTS. PSORIASISlt ankle. angina, vitamin D deficiency, degenerative disc disease of the CERIVAL AND lumbar spine unable to lift anything over 10# or stand for long periods of time. Diverticulitis. Bronchits. UTERINE fibroids. Falls. Hiatal hernia History of Any Multi-Drug Resistant Organisms: MRSA, Other MDRO Date of last positivie culture/infection: 2013 in [facility] MDRO Source:: spider bite on lt leg Past Surgical History: Adenoidectomy, Back Surgery, Bowel Resection, Cholecystectomy, Hernia Repair, Hysterectomy, Orthopedic Surgery, Tonsillectomy Additional Past Surgical History / Comment(s): Anterior cervical discectomy with fusion(toal 3 sx has wire in neck) , lumbar fusion 3-screws in back. R hip surgery(NOT A HIP REPLACEMENT). Left 1st rib removal r/t thoracic outlet syndrome. Hiatal hernia surg. Bilateral cataract surgery with lens implant Lt elbow tendon release. Sx on gums d/t infection. Dental implant Past Anesthesia/Blood Transfusion Reactions: No Reported Reaction Additional Past Anesthesia/Blood Transfusion Reaction / Comment(s): blood transfusion in 1969-no reaction Past Psychological History: Depression Smoking Status: Never smoker Past Alcohol Use History: None Reported Past Drug Use History: None Reported - Past Family History Father History Unknown: Yes Family Medical History: Coronary Artery Disease (CAD) Additional Family Medical History / Comment(s): aortic aneurysm at 72 Mother Family Medical History: CVA/TIA Brother(s) Family Medical History: No Reported History Sister(s) Family Medical History: Vascular Disorder Son(s) Family Medical History: No Reported History Daughter(s) Family Medical History: Unable to Obtain General Exam - General Exam Comments Initial Comments: GENERAL: Patient is well-developed and well-nourished. Patient is nontoxic and well- hydrated and is in mild distress. ENT: Neck is soft and supple. No significant lymphadenopathy is noted. Oropharynx is clear. Moist mucous membranes. Neck has full range of motion without eliciting any pain. EYES: The sclera were anicteric and conjunctiva were pink and moist. Extraocular movements were intact and pupils were equal round and reactive to light. Eyelids were unremarkable. PULMONARY: Unlabored respirations. Good breath sounds bilaterally. No audible rales rhonchi or wheezing was noted. CARDIOVASCULAR: There is a regular rate and rhythm without any murmurs gallops or rubs. ABDOMEN: Soft and nontender with normal bowel sounds. SKIN: Skin is clear with no lesions or rashes and otherwise unremarkable. NEUROLOGIC: Patient is alert and oriented x3. Cranial nerves II through XII are grossly intact. Motor and sensory are also intact. Normal speech, volume and content. Symmetrical smile. MUSCULOSKELETAL: Normal extremities with adequate strength and full range of motion. Patient has tenderness to the lateral aspect of her right hip. There is no swelling to the area there is no redness to the area patient has no leg swelling or calf tenderness LYMPHATICS: No significant lymphadenopathy is noted PSYCHIATRIC: Normal psychiatric evaluation. Limitations: no limitations Course Vital Signs 05/10/22 09:19 Temperature 98.6 F Pulse Rate 71 Respiratory 16 Rate Blood Pressure 144/66 O2 Sat by Pulse 99 Oximetry Medical Decision Making - Medical Decision Making X-ray shows no acute abnormality. Disposition Clinical Impression: Greater trochanteric bursitis Disposition: HOME SELF-CARE Condition: Good Instructions (If sedation given, give patient instructions): Hip Bursitis (ED) Additional Instructions: Patient should take Aleve twice a day Is patient prescribed a controlled substance at d/c from ED?: No Referrals: Roxanna Lozano MD [Primary Care Provider] - 1-2 days Time of Disposition: 10:49
--- NOTE | 2022-05-10 10:12 | XR ---
EXAMINATION TYPE: XR Hip RT and AP Pelvis DATE OF EXAM: 05/10/2022 9:56 AM INDICATION: Patient age:Female; 77 years old; Reason for study: Right hip pain. COMPARISON: 07/01/2021 CT abdomen pelvis TECHNIQUE: The right hip was examined in the frontal and lateral projections and a AP pelvis. FINDINGS: No evidence for acute process, joint dislocation or significant soft tissue swelling. Scatt ered pelvic lymph nodes are present. Metallic screw projects over the spine. Mild osteophyte formatio n of the right acetabulum with CAM deformity of the femoral head. IMPRESSION: 1. No acute process. 2. 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
[2022-05-10 11:07] VITALS: BP 132/70; PULSE 73
== END 2022-05-10 11:06 | disposition home or self-care (01) ==
LOC: EC 09:14
DX: M70.61 Trochanteric bursitis, right hip (principal); F32.A Depression, unspecified; E78.5 Hyperlipidemia, unspecified; I10 Essential (primary) hypertension; M19.90 Unspecified osteoarthritis, unspecified site; Z88.1 Allergy status to other antibiotic agents; Z88.8 Allergy status to other drugs, medicaments and biological substances; Z88.5 Allergy status to narcotic agent; Z79.899 Other long term (current) drug therapy
CPT/HCPCS: 73502; 99283; 96372; J1885

== ENCOUNTER → 2022-07-09 | Outpatient (CLI) | payer MEDICARE ==
--- NOTE | 2022-07-09 15:48 | XR ---
EXAMINATION TYPE: XR ribs RT DATE OF EXAM: 07/09/2022 COMPARISON: NONE HISTORY: Pain TECHNIQUE: 4 views submitted. FINDINGS: AC joint arthropathy noted. Mild diffuse osteopenia. Surgical clips gallbladder fossa. Rib cage is grossly intact. IMPRESSION: No acute displaced rib fracture.
== END | disposition home or self-care (01) ==
LOC: RADXRMAIN 15:26
PROVIDERS: ATTEND Family Medicine
DX: R07.81 Pleurodynia (principal)

== ENCOUNTER → 2022-09-08 | Outpatient (CLI) | payer MEDICARE ==
--- NOTE | 2022-09-09 10:31 | MM ---
Reason for Exam: Screening (asymptomatic). Last mammogram was performed 1 year(s) and 2 month(s) ago. Patient History: Menarche at age 10. First Full-Term at age 17. Left ovary removed at age 47. Right ovary removed at age 51. Hysterectomy at age 47. Postmenopausal. Estrogen for 1 year from age 54 until age 55. Maternal cousin had breast cancer, age 38. Risk Values: Padmaja 5 year model risk: 1.4%. NCI Lifetime model risk: 2.5%. Prior Study Comparison: 07/03/2020 Bilateral Screening Mammogram, [facility]. 07/29/2021 Bilateral Screening Mammogram, [facility]. 08/01/2021 Left Diagnostic Mammogram, [facility]. Tissue Density: The breast tissue is heterogeneously dense. This may lower the sensitivity of mammography. Findings: Analyzed By CAD. There is no suspicious group of microcalcifications or new suspicious mass in either breast. Benign-appearing bilateral calcifications. No significant change from prior exams. Overall Assessment: Benign, BI-RAD 2 Management: Screening Mammogram of both breasts in 1 year. A clinical breast exam by your physician is recommended on an annual basis and results should be correlated with mammographic findings. Electronically signed and approved by: Ti Orozco D.O.
== END | disposition home or self-care (01) ==
LOC: RADMAMWWP 09:50
PROVIDERS: ATTEND Family Medicine
DX: Z12.31 Encounter for screening mammogram for malignant neoplasm of breast (principal); Z78.0 Asymptomatic menopausal state; Z80.3 Family history of malignant neoplasm of breast
CPT/HCPCS: 77063; 77067

== ENCOUNTER 2022-09-16 15:41 | Emergency (ER) | payer MEDICARE ==
[2022-09-16 17:01] VITALS: BP 166/67; PULSE 69; RESP 16; TEMP 98.6
[2022-09-16 17:26] LABS: Basophils # (A) 0.1 k/uL (0-0.2); Basophils % (A) 1 %; Eosinophils # (A) 0.1 k/uL (0-0.7); Eosinophils % (A) 1 %; HCT 39.5 % (34.0-46.0); HGB 12.9 gm/dL (11.4-16.0); Lymphocytes # (A) 1.3 k/uL (1.0-4.8); Lymphocytes % (A) 16 %; MCH 29.2 pg (25.0-35.0); MCHC 32.6 g/dL (31.0-37.0); MCV 89.4 fL (80.0-100.0); Mean Platelet Volume 7.7; Monocytes # (A) 0.4 k/uL (0-1.0); Monocytes % (A) 5 %; Neutrophils # (A) 6.2 k/uL (1.3-7.7); Neutrophils % (A) 76 %; Platelet Count 241 k/uL (150-450); RBC 4.42 m/uL (3.80-5.40); RDW 13.9 % (11.5-15.5); WBC 8.2 k/uL (3.8-10.6)
[2022-09-16 17:41] LABS: INR 0.9 (<1.2); Prothrombin Time 9.7 sec (9.0-12.0)
[2022-09-16 17:48] LABS: Partial Thromboplastin Time 19.4 sec (22.0-30.0)
[2022-09-16 18:10] LABS: ALT 16 U/L (4-34); AST 23 U/L (14-36); African American GFR (CKD) >90 (>60 ml/min/1.73 sqM); Albumin 4.2 g/dL (3.5-5.0); Alkaline Phosphatase 83 U/L (38-126); Anion Gap 7 mmol/L; Blood Urea Nitrogen 32 mg/dL (7-17); Calcium 9.7 mg/dL (8.4-10.2); Carbon Dioxide 26 mmol/L (22-30); Chloride 107 mmol/L (98-107); Glucose 139 mg/dL (74-99); Magnesium 2.1 mg/dL (1.6-2.3); Non-African American GFR(CKD) 86 (>60 ml/min/1.73 sqM); Potassium 3.8 mmol/L (3.5-5.1); Sodium 140 mmol/L (137-145); Total Bilirubin 0.5 mg/dL (0.2-1.3); Total Protein 6.9 g/dL (6.3-8.2)
[2022-09-16] MEDS ORDERED: ONDANSETRON ODT 4 MG TAB PO STA (18:20)
--- NOTE | 2022-09-16 18:25 | ED ---
SOB HPI - General Chief Complaint: Shortness of Breath Stated Complaint: Chills, Vomiting Time Seen by Provider: 09/16/22 17:37 Source: patient, RN notes reviewed Mode of arrival: ambulatory Limitations: no limitations - History of Present Illness Initial Comments: This is a 77-year-old female who presents to the emergency department for nausea, vomiting, and shortness of breath. States that she was at lunch earlier today, when this occurred suddenly. She felt like she was shaking with the chills and was also very nauseous. She then proceeded to throw up. She was eating at [employer], and states that she had a ham and cheese sandwich, salad, and fruit. She has no chest pain and she has not had any similar symptoms in the past. She is unsure if it was something she ate. Denies any fevers, sore throat, cough, chest pain, palpitations, abdominal pain, diarrhea, back pain, or headaches. MD Complaint: shortness of breath - Related Data Home Medications Medication Instructions Recorded Confirmed Rosuvastatin Calcium 5 mg PO SUWE 08/08/19 04/20/22 amLODIPine [Norvasc] 2.5 mg PO DAILY 05/17/21 04/20/22 Cholecalciferol [Vitamin D3 (25 25 mcg PO DAILY 04/20/22 04/20/22 Mcg = 1000 Iu)] Diclofenac Sodium Gel [Voltaren 1 applic TOPICAL QID 04/20/22 04/20/22 Gel] Previous Rx's Medication Instructions Recorded Levothyroxine Sodium [Synthroid] 100 mcg PO DAILY@0630 #30 tab 07/22/21 Sertraline HCl [Zoloft] 25 mg PO DAILY #30 tab 07/22/21 traMADol HCl [Ultram] 50 mg PO Q6HR PRN #6 tab 04/22/22 Allergies Allergy/AdvReac Type Severity Reaction Status Date / Time clindamycin Allergy Rash/Hives Verified 05/10/22 09:24 atorvastatin calcium AdvReac LEG CRAMPS Verified 05/10/22 09:24 [From Lipitor] morphine AdvReac Nausea & Verified 05/10/22 09:24 Vomiting Review of Systems ROS Statement: Those systems with pertinent positive or pertinent negative responses have been documented in the HPI. ROS Other: All systems not noted in ROS Statement are negative. Past Medical History Past Medical History: Chest Pain / Angina, GERD/Reflux, Hyperlipidemia, Hypertension, Osteoarthritis (OA), Skin Disorder, Thyroid Disorder Additional Past Medical History / Comment(s): Hx. pancreatitis with pancreatic CYSTS. PSORIASISlt ankle. angina, vitamin D deficiency, degenerative disc disease of the CERIVAL AND lumbar spine unable to lift anything over 10# or stand for long periods of time. Diverticulitis. Bronchits. UTERINE fibroids. Falls. Hiatal hernia History of Any Multi-Drug Resistant Organisms: MRSA, Other MDRO Date of last positivie culture/infection: 2013 in [facility] MDRO Source:: spider bite on lt leg Past Surgical History: Adenoidectomy, Back Surgery, Bowel Resection, Cholecystectomy, Hernia Repair, Hysterectomy, Orthopedic Surgery, Tonsillectomy Additional Past Surgical History / Comment(s): Anterior cervical discectomy with fusion(toal 3 sx has wire in neck) , lumbar fusion 3-screws in back. R hip surgery(NOT A HIP REPLACEMENT). Left 1st rib removal r/t thoracic outlet syndrome. Hiatal hernia surg. Bilateral cataract surgery with lens implant Lt elbow tendon release. Sx on gums d/t infection. Dental implant Past Anesthesia/Blood Transfusion Reactions: No Reported Reaction Additional Past Anesthesia/Blood Transfusion Reaction / Comment(s): blood transfusion in 1969-no reaction Past Psychological History: Depression Smoking Status: Never smoker Past Alcohol Use History: None Reported Past Drug Use History: None Reported - Past Family History Father History Unknown: Yes Family Medical History: Coronary Artery Disease (CAD) Additional Family Medical History / Comment(s): aortic aneurysm at 72 Mother Family Medical History: CVA/TIA Brother(s) Family Medical History: No Reported History Sister(s) Family Medical History: Vascular Disorder Son(s) Family Medical History: No Reported History Daughter(s) Family Medical History: Unable to Obtain General Exam Limitations: no limitations General appearance: alert, in no apparent distress Head exam: Present: atraumatic, normocephalic, normal inspection Respiratory exam: Present: normal lung sounds bilaterally. Absent: respiratory distress, wheezes, rales, rhonchi, stridor Cardiovascular Exam: Present: regular rate, normal rhythm, normal heart sounds. Absent: systolic murmur, diastolic murmur, rubs, gallop, clicks Neurological exam: Present: alert, oriented X3, CN II-XII intact Psychiatric exam: Present: normal affect, normal mood Skin exam: Present: warm, dry, intact, normal color. Absent: rash Course Vital Signs 09/16/22 16:57 Temperature 98.6 F Pulse Rate 69 Respiratory 16 Rate Blood Pressure 166/67 O2 Sat by Pulse 98 Oximetry Medical Decision Making - Medical Decision Making This is a 77-year-old female who presents to the emergency department for shortness of breath and nausea. Lab work obtained and found to be nonactionable. My interpretation of the chest x-ray reveals no localized consolidations or infiltrates. Patient requested Zofran for nausea, which she states helped significantly. She denies any shortness of breath upon reevaluation and states that she has never had any chest pain. Overall, she states that she feels much better and is stable for discharge home. Starter pack for Zofran provided. Physical examination, vital signs, and laboratory findings are not consistent with an acute coronary syndrome or pulmonary embolus. She was given very strict return parameters that if she develops increasing chest pain or shortness of breath, she should return immediately. Patient expresses understanding and wishes to be discharged home. Return precautions reviewed in depth, the patient is instructed to return to the emergency department with any new, worsening, or concerning symptoms. Patient verbalized understanding. This case was discussed in detail with the attending ED physician. Presentation, findings, and treatment plan discussed in detail as well. - Lab Data Result diagrams: 09/16/22 17:17 09/16/22 17:17 Lab Results 09/16/22 09/16/22 09/16/22 Range/Units 17:17 17:17 17:17 WBC 8.2 (3.8-10.6) k/uL RBC 4.42 (3.80-5.40) m/uL Hgb 12.9 (11.4-16.0) gm/dL Hct 39.5 (34.0-46.0) % MCV 89.4 (80.0-100.0) fL MCH 29.2 (25.0-35.0) pg MCHC 32.6 (31.0-37.0) g/dL RDW 13.9 (11.5-15.5) % Plt Count 241 (150-450) k/uL MPV 7.7 Neutrophils % 76 % Lymphocytes % 16 % Monocytes % 5 % Eosinophils % 1 % Basophils % 1 % Neutrophils # 6.2 (1.3-7.7) k/uL Lymphocytes # 1.3 (1.0-4.8) k/uL Monocytes # 0.4 (0-1.0) k/uL Eosinophils # 0.1 (0-0.7) k/uL Basophils # 0.1 (0-0.2) k/uL PT 9.7 (9.0-12.0) sec INR 0.9 (<1.2) APTT 19.4 L (22.0-30.0) sec Sodium 140 (137-145) mmol/L Potassium 3.8 (3.5-5.1) mmol/L Chloride 107 (98-107) mmol/L Carbon Dioxide 26 (22-30) mmol/L Anion Gap 7 mmol/L BUN 32 H (7-17) mg/dL Creatinine 0.65 (0.52-1.04) mg/dL Est GFR (CKD-EPI)AfAm >90 (>60 ml/min/1.73 sqM) Est GFR (CKD-EPI)NonAf 86 (>60 ml/min/1.73 sqM) Glucose 139 H (74-99) mg/dL Calcium 9.7 (8.4-10.2) mg/dL Magnesium 2.1 (1.6-2.3) mg/dL Total Bilirubin 0.5 (0.2-1.3) mg/dL AST 23 (14-36) U/L ALT 16 (4-34) U/L Alkaline Phosphatase 83 (38-126) U/L Troponin I (0.000-0.034) ng/mL Total Protein 6.9 (6.3-8.2) g/dL Albumin 4.2 (3.5-5.0) g/dL Urine Color Urine Appearance (Clear) Urine pH (5.0-8.0) Ur Specific [place] (1.001-1.035) Urine Protein (Negative) Urine Glucose (UA) (Negative) Urine Ketones (Negative) Urine Blood (Negative) Urine Nitrite (Negative) Urine Bilirubin (Negative) Urine Urobilinogen (<2.0) mg/dL Ur Leukocyte Esterase (Negative) Urine RBC (0-5) /hpf Urine WBC (0-5) /hpf Ur Squamous Epith Cells (0-4) /hpf Amorphous Sediment (None) /hpf Urine Mucus (None) /hpf Influenza Type A (PCR) (Not Detectd) Influenza Type B (PCR) (Not Detectd) RSV (PCR) (Not Detectd) SARS-CoV-2 (PCR) (Not Detectd) 09/16/22 09/16/22 09/16/22 Range/Units 17:17 17:17 18:20 WBC (3.8-10.6) k/uL RBC (3.80-5.40) m/uL Hgb (11.4-16.0) gm/dL Hct (34.0-46.0) % MCV (80.0-100.0) fL MCH (25.0-35.0) pg MCHC (31.0-37.0) g/dL RDW (11.5-15.5) % Plt Count (150-450) k/uL MPV Neutrophils % % Lymphocytes % % Monocytes % % Eosinophils % % Basophils % % Neutrophils # (1.3-7.7) k/uL Lymphocytes # (1.0-4.8) k/uL Monocytes # (0-1.0) k/uL Eosinophils # (0-0.7) k/uL Basophils # (0-0.2) k/uL PT (9.0-12.0) sec INR (<1.2) APTT (22.0-30.0) sec Sodium (137-145) mmol/L Potassium (3.5-5.1) mmol/L Chloride (98-107) mmol/L Carbon Dioxide (22-30) mmol/L Anion Gap mmol/L BUN (7-17) mg/dL Creatinine (0.52-1.04) mg/dL Est GFR (CKD-EPI)AfAm (>60 ml/min/1.73 sqM) Est GFR (CKD-EPI)NonAf (>60 ml/min/1.73 sqM) Glucose (74-99) mg/dL Calcium (8.4-10.2) mg/dL Magnesium (1.6-2.3) mg/dL Total Bilirubin (0.2-1.3) mg/dL AST (14-36) U/L ALT (4-34) U/L Alkaline Phosphatase (38-126) U/L Troponin I <0.012 (0.000-0.034) ng/mL Total Protein (6.3-8.2) g/dL Albumin (3.5-5.0) g/dL Urine Color Yellow Urine Appearance Turbid H (Clear) Urine pH 8.0 (5.0-8.0) Ur Specific [place] 1.024 (1.001-1.035) Urine Protein 1+ H (Negative) Urine Glucose (UA) Trace H (Negative) Urine Ketones Negative (Negative) Urine Blood Trace H (Negative) Urine Nitrite Negative (Negative) Urine Bilirubin Negative (Negative) Urine Urobilinogen <2.0 (<2.0) mg/dL Ur Leukocyte Esterase Negative (Negative) Urine RBC 6 H (0-5) /hpf Urine WBC 2 (0-5) /hpf Ur Squamous Epith Cells 1 (0-4) /hpf Amorphous Sediment Rare H (None) /hpf Urine Mucus Rare H (None) /hpf Influenza Type A (PCR) Not Detected (Not Detectd) Influenza Type B (PCR) Not Detected (Not Detectd) RSV (PCR) Not Detected (Not Detectd) SARS-CoV-2 (PCR) Not Detected (Not Detectd) - EKG Data -: EKG Interpreted by Me EKG Comments: Sinus bradycardia. Ventricular rate 58 bpm, VT interval 190 ms, QRS duration 81 ms, QTC 433 ms. - Radiology Data Radiology results: report reviewed, image reviewed Disposition Clinical Impression: Chills, Nausea and vomiting, Shortness of breath Disposition: HOME SELF-CARE Instructions (If sedation given, give patient instructions): Acute Nausea and Vomiting (ED) Additional Instructions: Return to the emergency department with any new, worsening, or concerning symptoms. You can take the Zofran up to every 8 hours as needed for nausea and vomiting. Slowly advance your diet as tolerated and make sure that you remain well-hydrated. Follow up with your primary care provider in 1-2 days. Is patient prescribed a controlled substance at d/c from ED?: No Referrals: None,Stated [REFERRING] - 1-2 days
--- NOTE | 2022-09-16 18:41 | XR ---
EXAMINATION TYPE: XR chest 2V DATE OF EXAM: 09/16/2022 6:13 PM COMPARISON: Chest radiographs from 07/09/2022 06/30/2021 TECHNIQUE: XR chest 2V Frontal and lateral views of the chest. CLINICAL INDICATION:Female, 77 years old with history of difficulty breathing; FINDINGS: Lungs/Pleura: There is no evidence of pleural effusion, focal consolidation, or pneumothorax. Pulmonary vascularity: Unremarkable. Heart/mediastinum: Cardiomediastinal silhouette is unremarkable. Musculoskeletal: No acute osseous pathology. IMPRESSION: No acute cardiopulmonary disease/process.
[2022-09-16 19:02] LABS: Amorphous Sediment,Urine Rare /hpf; Appearance,Urine Turbid (Clear); Bilirubin,Urine Negative (Negative); Blood,Urine Trace (Negative); Color,Urine Yellow; Glucose,Urine (UA) Trace (Negative); Ketones,Urine Negative (Negative); Leukocyte Esterase,Urine Negative (Negative); Mucus,Urine Rare /hpf; Nitrite,Urine Negative (Negative); Protein,Urine 1+ (Negative); RBC,Urine 6 /hpf (0-5); Specific Gravity,Urine 1.024 (1.001-1.035); Squamous Epithelial Cell,Urine 1 /hpf (0-4); Urobilinogen,Urine <2.0 mg/dL (<2.0); WBC,Urine 2 /hpf (0-5)
[2022-09-16] MEDS ORDERED: ONDANSETRON 4 MG ODT STARTER PACK 2 TAB BTL PO STA (19:12)
== END 2022-09-16 19:56 | disposition home or self-care (01) ==
LOC: EC 15:41
DX: R68.83 Chills (without fever) (principal); R11.2 Nausea with vomiting, unspecified; R06.02 Shortness of breath; M19.90 Unspecified osteoarthritis, unspecified site; E78.5 Hyperlipidemia, unspecified; I10 Essential (primary) hypertension; F32.A Depression, unspecified; Z79.1 Long term (current) use of non-steroidal anti-inflammatories (NSAID); Z79.899 Other long term (current) drug therapy; Z20.822 Contact with and (suspected) exposure to COVID-19; Z88.1 Allergy status to other antibiotic agents; Z88.8 Allergy status to other drugs, medicaments and biological substances; Z88.5 Allergy status to narcotic agent
CPT/HCPCS: 36415; 93005; 80053; 83735; 84484; 85025; 85610; 85730; 81001; 87636; 71046; 99285; S0119

== ENCOUNTER → 2022-10-29 | Outpatient (CLI) | payer MEDICARE ==
[2022-10-29 14:43] LABS: ALT 13 U/L (8-44); AST 24 U/L (13-35); Albumin 4.3 g/dL (3.8-4.9); Albumin/Globulin Ratio 2.05 (1.60-3.17); Alkaline Phosphatase 63 U/L (41-126); BUN/Creat Ratio 27.78 Ratio (12.00-20.00); Calcium 9.9 mg/dL (8.7-10.3); Carbon Dioxide 24.4 mmol/L (20.0-27.5); Chloride 106 mmol/L (96-109); Chol/HDL Ratio 3.09 Ratio; Globulin 2.1 g/dL (1.6-3.3); Glucose 119 mg/dL (70-110); LDL Cholesterol,Calculated 135.5 mg/dL (0.0-131.0); Non-African American GFR(CKD) 61.2 (60.0-200.0); Potassium 4.4 mmol/L (3.5-5.5); Sodium 143 mmol/L (135-145); Total Protein 6.4 g/dL (6.2-8.2)
== END | disposition home or self-care (01) ==
LOC: LABWHC1 09:41
PROVIDERS: ATTEND Internal Medicine Interventional Cardiology
DX: E78.2 Mixed hyperlipidemia (principal)
CPT/HCPCS: 36415; 80053; 80061

== ENCOUNTER → 2022-12-31 | Outpatient (CLI) | payer MEDICARE ==
--- NOTE | 2023-01-01 12:15 | US ---
EXAMINATION TYPE: US arterial LE single level DATE OF EXAM: 12/31/2022 1:30 PM CLINICAL HISTORY: R09.89 SIGNS INVOLVING CIRCULATORY AND RESPIRATORY SYSTEMS. pain in rt leg History of: Smoker: No Hypertension: No Diabetic: No Hyperlipidemia: No TIA/CVA: No Previous Vascular Surgery: No CAD: No LA: No Vascular Ulcers: No Claudication: No Gangrene: No Doppler Waveforms: Right: Biphasic Left: Biphasic Right Brachial Pressure: 144 Left Brachial Pressure: 177 Ankle-Brachial Indices: Right: 1.06 Left: 1.07 Toe Brachial Indices: Right: 0.90 Left: 0.75 IMPRESSION: Normal ADAL and TBI values.
== END | disposition home or self-care (01) ==
LOC: RADUSWWP 12:43
PROVIDERS: ATTEND Family Medicine
DX: M79.604 Pain in right leg (principal); R09.89 Other specified symptoms and signs involving the circulatory and respiratory systems
CPT/HCPCS: 93922

== ENCOUNTER 2023-03-13 16:59 | Inpatient (IN) | payer MEDICARE ==
[2023-03-13] MEDS ORDERED: ONDANSETRON 4 MG/2 ML VIAL IVP STA (17:26)
[2023-03-13] MEDS ORDERED: SODIUM CHLORIDE 0.9% 1,000 ML IV STA (17:26)
[2023-03-13] MEDS ORDERED: ACETAMINOPHEN IV (For NPO) 1,000 MG in SALINE 100 100ML.BAG IVPB STA (17:32)
--- NOTE | 2023-03-13 17:35 | ED ---
Abdominal Pain HPI - General Chief Complaint: Abdominal Pain Stated Complaint: abd pain and falls Time Seen by Provider: 03/13/23 17:26 Source: family, RN notes reviewed Mode of arrival: wheelchair Limitations: no limitations - History of Present Illness Initial Comments: Patient presents with lower abdominal pain that is she is having a hard time characterizing. She states that she ate fish for lunch at about 1:00 then developed the pain in the lower abdomen. Patient had a normal bowel movement this morning. No hematochezia or melena. Patient denying any fever or chills but has had some nausea and was close to vomiting. Patient denying any problems with urination. No chest pain or shortness of breath. Patient states that the pain is quite severe. Exacerbated by palpation, no alleviating factors. MD Complaint: abdominal pain - Related Data Home Medications Medication Instructions Recorded Confirmed Rosuvastatin Calcium 5 mg PO SUWE 08/08/19 04/20/22 amLODIPine [Norvasc] 2.5 mg PO DAILY 05/17/21 04/20/22 Cholecalciferol [Vitamin D3 (25 25 mcg PO DAILY 04/20/22 04/20/22 Mcg = 1000 Iu)] Diclofenac Sodium Gel [Voltaren 1 applic TOPICAL QID 04/20/22 04/20/22 Gel] Previous Rx's Medication Instructions Recorded Levothyroxine Sodium [Synthroid] 100 mcg PO DAILY@0630 #30 tab 07/22/21 Sertraline HCl [Zoloft] 25 mg PO DAILY #30 tab 07/22/21 traMADol HCl [Ultram] 50 mg PO Q6HR PRN #6 tab 04/22/22 Allergies Allergy/AdvReac Type Severity Reaction Status Date / Time clindamycin Allergy Rash/Hives Verified 03/13/23 17:14 atorvastatin calcium AdvReac LEG CRAMPS Verified 03/13/23 17:14 [From Lipitor] morphine AdvReac Nausea & Verified 03/13/23 17:14 Vomiting Review of Systems ROS Statement: Those systems with pertinent positive or pertinent negative responses have been documented in the HPI. ROS Other: All systems not noted in ROS Statement are negative. Past Medical History Past Medical History: Chest Pain / Angina, GERD/Reflux, Hyperlipidemia, Hyperte nsion, Osteoarthritis (OA), Skin Disorder, Thyroid Disorder Additional Past Medical History / Comment(s): Hx. pancreatitis with pancreatic CYSTS. PSORIASISlt ankle. angina, vitamin D deficiency, degenerative disc disease of the CERIVAL AND lumbar spine unable to lift anything over 10# or stand for long periods of time. Diverticulitis. Bronchits. UTERINE fibroids. Falls. Hiatal hernia History of Any Multi-Drug Resistant Organisms: MRSA, Other MDRO Date of last positivie culture/infection: 2013 in [place] [facility] MDRO Source:: spider bite on lt leg Past Surgical History: Adenoidectomy, Back Surgery, Bowel Resection, Cholecystectomy, Hernia Repair, Hysterectomy, Orthopedic Surgery, Tonsillectomy Additional Past Surgical History / Comment(s): Anterior cervical discectomy with fusion(toal 3 sx has wire in neck) , lumbar fusion 3-screws in back. R hip surgery(NOT A HIP REPLACEMENT). Left 1st rib removal r/t thoracic outlet syndro me. Hiatal hernia surg. Bilateral cataract surgery with lens implant Lt elbow tendon release. Sx on gums d/t infection. Dental implant Past Anesthesia/Blood Transfusion Reactions: No Reported Reaction Additional Past Anesthesia/Blood Transfusion Reaction / Comment(s): blood transfusion in 1969-no reaction Past Psychological History: Depression Smoking Status: Never smoker Past Alcohol Use History: None Reported Past Drug Use History: None Reported - Past Family History Father History Unknown: Yes Family Medical History: Coronary Artery Disease (CAD) Additional Family Medical History / Comment(s): aortic aneurysm at 72 Mother Family Medical History: CVA/TIA Brother(s) Family Medical History: No Reported History Sister(s) Family Medical History: Vascular Disorder Son(s) Family Medical History: No Reported History Daughter(s) Family Medical History: Unable to Obtain General Exam - General Exam Comments Initial Comments: Vital signs reviewed, patient Refill is less than 2 seconds. Cranial nerves II through XII grossly intact. Patient in distress secondary to abdominal pain. Limitations: no limitations General appearance: alert, in distress Head exam: Present: atraumatic, normocephalic, normal inspection Eye exam: Present: normal appearance, PERRL, EOMI. Absent: scleral icterus, conjunctival injection, periorbital swelling ENT exam: Present: normal exam, mucous membranes moist, normal external ear exam Neck exam: Present: normal inspection, full ROM. Absent: tenderness, meningismus, lymphadenopathy Respiratory exam: Present: normal lung sounds bilaterally. Absent: respiratory distress, wheezes, rales, rhonchi, stridor, chest wall tenderness, decreased breath sounds, prolonged expiratory Cardiovascular Exam: Present: regular rate, normal rhythm, normal heart sounds. Absent: systolic murmur, diastolic murmur, rubs, gallop, clicks GI/Abdominal exam: Present: soft, tenderness (Lower abdomen), guarding, hyperactive bowel sounds. Absent: distended, normal bowel sounds Extremities exam: Present: normal inspection, full ROM, normal capillary refill. Absent: tenderness, pedal edema, joint swelling, calf tenderness Back exam: Present: normal inspection Neurological exam: Present: alert, oriented X3, CN II-XII intact Psychiatric exam: Present: normal affect, normal mood Skin exam: Present: warm, dry, intact, normal color. Absent: rash Course Vital Signs 03/13/23 17:12 Temperature 97.8 F Pulse Rate 55 L Respiratory 16 Rate Blood Pressure 126/89 O2 Sat by Pulse 100 Oximetry - Reevaluation(s) Reevaluation #1: 03/13/23 19:11 Patient reevaluated and is much improved as far as pain goes. Patient's lactic acid was elevated at 2.4. CBC was otherwise normal. Awaiting CT results. Case discussed in detail with ED attending physician. Patient endorsed to Dr. Stevens At 7:12 PM for further treatment and disposition. Medical Decision Making - Medical Decision Making Was pt. sent in by a medical professional or institution? @ -[no] Did you speak to anyone other than the patient for history? @ -[Daughter] Did you review nursing and triage notes? @ -[agree ] Were old charts reviewed? @ -[no] Differential Diagnosis? @ -[Small bowel obstruction, enteritis, less likely bowel perforation or perforative viscus, colitis, ischemic colitis, does not appear to be consistent with cardiopulmonary disease. Unlikely to be urological disease.] EKG interpreted by me (3pts min.)? @ -[none] X-rays interpreted by me (1pt min.)? @ -[none] CT interpreted by me (1pt min.)? @ -[none] U/S interpreted by me (1pt. min.)? @ -[none] What testing was considered but not performed? (CT, X-rays, U/S, labs)? Why? @ [1 view chest x-ray independently interpreted by me shows no evidence of acute pathology. Computed tomography scan independently interpreted by me shows multiple air-fluid levels consistent with small bowel obstruction. Reviewed radiology interpretation.] What meds were considered but not given? Why? @ -[Considered hydromorphone. However patient had adequate analgesia with IV acetaminophen.] Did you discuss the management of the patient with other professionals? @ -The case was discussed in detail with ED attending physician. Presentation, findings, treatment plan discussed in detail. Case discussed with the on-call surgeon who recommended NG tube, antibiotics, and hospitalist consultation. Agrees with admission. Case also discussed with the hospitalist physician for medical management consultation, Dr. Dubose Did you reconcile home meds? @ -yes Was smoking cessation discussed for >3mins.? @ -[none] Was critical care preformed (if so, how long)? @ -[none] Were there social determinants of health that impacted care today? How? (Homelessness, low income, unemployed, alcoholism, drug addiction, transportation, low edu. Level, literacy, decrease access to med. care, fpc, rehab)? @ -Elderly female. Was there de-escalation of care discussed even if they declined? (Discuss DNR or withdrawal of care, Hospice)? @ -Discussed, patient full code What co-morbidities impacted this encounter? (DM, HTN, Smoking, COPD, CAD, Cancer, CVA, Hep., AIDS, mental health diagnosis, sleep apnea, morbid obesity)? @ -Previous problems with pancreatitis. Devious intra-abdominal surgeries. Was patient admitted / discharged? @ -Patient admitted. Undiagnosed new problem with uncertain prognosis? @ -This is a new problem with uncertain prognosis. Drug Therapy requiring intensive monitoring for toxicity (Heparin, Nitro, Insulin, Cardizem)? @ -[none] Were any procedures done? @ -[none] Diagnosis/symptom? @ -Partial small bowel obstruction Acute, or Chronic, or Acute on Chronic? @ -Acute Uncomplicated (without systemic symptoms) or Complicated (systemic symptoms)? @ -Currently uncomplicated. He could progress to more systemic symptoms, threat to bodily function and life. Side effects of treatment? @ -[none] Exacerbation, Progression, or Severe Exacerbation] @ -Acute Poses a threat to life or bodily function? @ -Possibly Zosyn 3.37 g IV piggyback ordered. Patient had acetaminophen IV for pain control. NG tube ordered. - Lab Data Result diagrams: 03/13/23 17:53 03/13/23 17:53 Lab Results 03/13/23 03/13/23 03/13/23 Range/Units 17:53 17:53 17:53 WBC 8.7 (3.8-10.6) k/uL RBC 4.38 (3.80-5.40) m/uL Hgb 12.6 (11.4-16.0) gm/dL Hct 38.1 (34.0-46.0) % MCV 86.9 (80.0-100.0) fL MCH 28.8 (25.0-35.0) pg MCHC 33.1 (31.0-37.0) g/dL RDW 14.0 (11.5-15.5) % Plt Count 233 (150-450) k/uL MPV 7.8 Neutrophils % 63 % Lymphocytes % 28 % Monocytes % 4 % Eosinophils % 2 % Basophils % 0 % Neutrophils # 5.5 (1.3-7.7) k/uL Lymphocytes # 2.4 (1.0-4.8) k/uL Monocytes # 0.3 (0-1.0) k/uL Eosinophils # 0.2 (0-0.7) k/uL Basophils # 0.0 (0-0.2) k/uL Sodium 136 L (137-145) mmol/L Potassium 3.7 (3.5-5.1) mmol/L Chloride 102 (98-107) mmol/L Carbon Dioxide 22 (22-30) mmol/L Anion Gap 12 mmol/L BUN 26 H (7-17) mg/dL Creatinine 0.92 (0.52-1.04) mg/dL Est GFR (CKD-EPI)AfAm 69 (>60 ml/min/1.73 sqM) Est GFR (CKD-EPI)NonAf 60 (>60 ml/min/1.73 sqM) Glucose 120 H (74-99) mg/dL Plasma Lactic Acid John 2.4 H* (0.7-2.0) mmol/L Calcium 9.6 (8.4-10.2) mg/dL Total Bilirubin 0.5 (0.2-1.3) mg/dL AST 23 (14-36) U/L ALT 16 (4-34) U/L Alkaline Phosphatase 71 (38-126) U/L Total Protein 6.6 (6.3-8.2) g/dL Albumin 4.2 (3.5-5.0) g/dL Lipase 90 (23-300) U/L Disposition Clinical Impression: Partial small bowel obstruction Disposition: ADMITTED IP TO THIS [facility] Condition: Stable Time of Disposition: 19:16 Decision to Admit Reason: Admit from EC Decision Date: 03/13/23 Decision Time: 19:16
--- NOTE | 2023-03-13 17:52 | XR ---
EXAMINATION TYPE: XR chest 1V portable DATE OF EXAM: 03/13/2023 5:49 PM COMPARISON: Chest radiographs from 09/16/2022 TECHNIQUE: XR chest 1V portable Frontal view of the chest. CLINICAL INDICATION:Female, 77 years old with history of abdominal pain; FINDINGS: Lungs/Pleura: Prominent interstitial lung markings are seen scattered throughout the lungs with cassy ening of the diaphragm and increased lucency of the lung apices. No evidence of focal consolidation, pneumothorax or pleural effusion. Stable left midlung calcified granuloma. Pulmonary vascularity: Unremarkable. Heart/mediastinum: Cardiomediastinal silhouette is unremarkable. Atherosclerotic calcifications are seen in the aorta. Musculoskeletal: No acute osseous pathology. IMPRESSION: 1. No acute cardiopulmonary disease process. 2. COPD changes.
[2023-03-13 18:10] LABS: Basophils % (A) 0 %; Eosinophils # (A) 0.2 k/uL (0-0.7); Eosinophils % (A) 2 %; HCT 38.1 % (34.0-46.0); HGB 12.6 gm/dL (11.4-16.0); Lymphocytes # (A) 2.4 k/uL (1.0-4.8); Lymphocytes % (A) 28 %; MCH 28.8 pg (25.0-35.0); MCHC 33.1 g/dL (31.0-37.0); MCV 86.9 fL (80.0-100.0); Mean Platelet Volume 7.8; Monocytes # (A) 0.3 k/uL (0-1.0); Monocytes % (A) 4 %; Neutrophils # (A) 5.5 k/uL (1.3-7.7); Neutrophils % (A) 63 %; Platelet Count 233 k/uL (150-450); RBC 4.38 m/uL (3.80-5.40); WBC 8.7 k/uL (3.8-10.6)
[2023-03-13 18:23] LABS: ALT 16 U/L (4-34); AST 23 U/L (14-36); African American GFR (CKD) 69 (>60 ml/min/1.73 sqM); Albumin 4.2 g/dL (3.5-5.0); Alkaline Phosphatase 71 U/L (38-126); Anion Gap 12 mmol/L; Blood Urea Nitrogen 26 mg/dL (7-17); Calcium 9.6 mg/dL (8.4-10.2); Carbon Dioxide 22 mmol/L (22-30); Chloride 102 mmol/L (98-107); Glucose 120 mg/dL (74-99); Lipase 90 U/L (23-300); Non-African American GFR(CKD) 60 (>60 ml/min/1.73 sqM); Potassium 3.7 mmol/L (3.5-5.1); Sodium 136 mmol/L (137-145); Total Bilirubin 0.5 mg/dL (0.2-1.3); Total Protein 6.6 g/dL (6.3-8.2)
--- NOTE | 2023-03-13 19:12 | CT ---
EXAMINATION TYPE: CT abdomen pelvis w con CT DLP: 548 mGycm, Automated exposure control for dose reduction was used. DATE OF EXAM: 03/13/2023 6:54 PM COMPARISON: MRCP 11/18/2022, CT 04/20/2022 CLINICAL INDICATION:Female, 77 years old with history of Lower abdominal pain; lower abd pain TECHNIQUE: Axial CT of the abdomen and pelvis. Sagittal and coronal reformats were created on a [employer] [place] workstation. Contrast used:80ml mL of Isovue 300 with IV Contrast, Oral contrast used: without Oral Contrast FINDINGS: LOWER CHEST: Unremarkable ABDOMEN LIVER: Unremarkable GALLBLADDER AND BILE DUCTS: Persistent mild central biliary dilation. The gallbladder is surgically a bsent. PANCREAS: Stable pancreatic cystic changes as seen on prior MRI. SPLEEN: Unremarkable. ADRENAL GLANDS: Unremarkable. KIDNEYS AND URETERS: No evidence of hydronephrosis or renal calculus. The ureters are unremarkable. PELVIS BLADDER: Unremarkable REPRODUCTIVE: The uterus is not visualized may be surgically absent. ABDOMEN & PELVIS STOMACH AND BOWEL: Air-fluid levels are seen throughout the small bowel there is dilation of small radha wel. There is relatively nondistention of the distal small bowel. Small bowel dilation measuring up t o 3.1 cm. Surgical changes of the sigmoid colon present. Scattered colonic diverticula. Large bowel i s moderately distended with stool. The appendix is not visualized. PERITONEUM/RETROPERITONEUM: No evidence of pneumoperitoneum or free fluid. VASCULATURE: No evidence of aortic aneurysm. MUSCULOSKELETAL: No acute osseous abnormalities. Moderate disc degeneration changes are present throu ghout the thoracolumbar spine. Surgical changes throughout the spine with grade 1 anterolisthesis of L3 on L4. LYMPH NODES: No gross evidence for lymphadenopathy. SOFT TISSUE/ABDOMINAL WALL: Unremarkable 1. IMPRESSION: 2. Multiple air-fluid levels within dilated small bowel. There is relative nondistention of the term inal small bowel. Stool is seen throughout the colon however. Correlate for partial small bowel obstr uction versus ileus. No additional acute intra-abdominal changes. 3. Stable mild biliary dilation. 4. Stable cystic changes within the pancreas.
[2023-03-13] MEDS ORDERED: PIPERACILLIN-TAZOBACTAM 3.375 GM in SODIUM CHLORIDE 0.9% 100 ML IVPB STA (19:24)
[2023-03-13] MEDS ORDERED: ONDANSETRON 4 MG/2 ML VIAL IVP PRN (19:28)
[2023-03-13] MEDS ORDERED: NALOXONE 0.4 MG/ML 1 ML VIAL IV PRN (19:28)
[2023-03-13] MEDS: SODIUM CHLORIDE 0.9% 1,000 ML IV SCH (20:43)
[2023-03-13 21:39] LABS: Appearance,Urine Clear (Clear); Bilirubin,Urine Negative (Negative); Blood,Urine Negative (Negative); Color,Urine Yellow; Glucose,Urine (UA) Negative (Negative); Ketones,Urine Negative (Negative); Leukocyte Esterase,Urine Negative (Negative); Nitrite,Urine Negative (Negative); Protein,Urine Trace (Negative); Specific Gravity,Urine 1.041 (1.001-1.035); Urobilinogen,Urine <2.0 mg/dL (<2.0)
--- NOTE | 2023-03-13 21:58 | XR ---
EXAMINATION TYPE: XR KUB portable DATE OF EXAM: 03/13/2023 9:46 PM INDICATION: Patient age:Female; 77 years old; Reason for study: Confirm tube placement; [facility]. COMPARISON: CT 03/13/2023. TECHNIQUE: One radiographic view of the abdomen was obtained. FINDINGS: The distal nasogastric tube tip and side-port project over the gastroesophageal junction/di stal esophagus The bowel gas pattern is nonspecific without dilated loops of small or large bowel. Th ere is no evidence for organomegaly or pneumoperitoneum. The osseous structures are intact. No abno rmal calcifications are present. Fecal material and gas are demonstrated throughout the colon and rec nighat. Fixation changes to the spine.. IMPRESSION: Nasogastric tube distal tip and side-port near the gastroesophageal junction advancement of 10 cm is recommended for optimal placement
--- NOTE | 2023-03-14 07:03 | P.GSHP ---
History of Present Illness H&P Date: 03/14/23 Chief Complaint: Small bowel obstruction This a 69-year-old female was admitted to the hospital complaints of abdominal pain nausea. Patient states she has a 12 hour history of crampy abdominal pain. Patient's CAT scan suggestive of a small bowel obstruction. She is extensive surgical history with previous sigmoid resection. Past Medical History Past Medical History: Chest Pain / Angina, GERD/Reflux, Hyperlipidemia, Hypertension, Osteoarthritis (OA), Skin Disorder, Thyroid Disorder Additional Past Medical History / Comment(s): Hx. pancreatitis with pancreatic CYSTS. PSORIASISlt ankle. angina, vitamin D deficiency, degenerative disc disease of the CERIVAL AND lumbar spine unable to lift anything over 10# or stand for long periods of time. Diverticulitis. Bronchits. UTERINE fibroids. Falls. Hiatal hernia History of Any Multi-Drug Resistant Organisms: MRSA, Other MDRO Date of last positivie culture/infection: 2013 in [place] [facility] MDRO Source:: spider bite on lt leg Past Surgical History: Adenoidectomy, Back Surgery, Bowel Resection, Cholecystectomy, Hernia Repair, Hysterectomy, Orthopedic Surgery, Tonsillectomy Additional Past Surgical History / Comment(s): Anterior cervical discectomy with fusion(toal 3 sx has wire in neck) , lumbar fusion 3-screws in back. R hip surgery(NOT A HIP REPLACEMENT). Left 1st rib removal r/t thoracic outlet syndrome. Hiatal hernia surg. Bilateral cataract surgery with lens implant Lt elbow tendon release. Sx on gums d/t infection. Dental implant Past Anesthesia/Blood Transfusion Reactions: No Reported Reaction Additional Past Anesthesia/Blood Transfusion Reaction / Comment(s): blood transfusion in 1969-no reaction Past Psychological History: Depression Additional Psychological History / Comment(s): lives alone, senior center, cane at times used Smoking Status: Never smoker Past Alcohol Use History: None Reported Past Drug Use History: None Reported - Past Family History Father History Unknown: Yes Family Medical History: Coronary Artery Disease (CAD) Additional Family Medical History / Comment(s): aortic aneurysm at 72 Mother Family Medical History: CVA/TIA Brother(s) Family Medical History: No Reported History Sister(s) Family Medical History: Vascular Disorder Son(s) Family Medical History: No Reported History Daughter(s) Family Medical History: Unable to Obtain Medications and Allergies Home Medications Medication Instructions Recorded Confirmed Type amLODIPine [Norvasc] 2.5 mg PO DAILY@89905/17/21 03/13/23 History Aspirin EC [Ecotrin Low Dose] 81 mg PO DAILY@89903/13/23 03/13/23 History Donepezil [Aricept] 5 mg PO DAILY@89903/13/23 03/13/23 History Levothyroxine Sodium [Synthroid] 100 mcg PO DAILY@79903/13/23 03/13/23 History Oxybutynin Chloride [oxyBUTYnin 10 mg PO DAILY@89903/13/23 03/13/23 History chloride ER] Sertraline [Zoloft] 50 mg PO DAILY@89903/13/23 03/13/23 History Allergies Allergy/AdvReac Type Severity Reaction Status Date / Time clindamycin Allergy Rash/Hives Verified 03/13/23 20:16 atorvastatin calcium AdvReac LEG CRAMPS Verified 03/13/23 20:16 [From Lipitor] morphine AdvReac Nausea & Verified 03/13/23 20:16 Vomiting Surgical - Exam Vital Signs Temp Pulse Resp BP Pulse Ox 97.8 F 55 L 16 126/89 100 03/13/23 17:12 03/13/23 17:12 03/13/23 17:12 03/13/23 17:12 03/13/23 17:12 - General well developed, no distress - Eyes PERRL - ENT normal pinna - Neck no masses - Respiratory normal expansion - Abdomen Abdomen: soft, non tender Results - Labs 03/13/23 17:53 03/13/23 17:53 Abnormal Lab Results - Last 24 Hours (Table) 03/13/23 03/13/23 03/13/23 Range/Units 17:53 17:53 17:53 Sodium 136 L (137-145) mmol/L BUN 26 H (7-17) mg/dL Glucose 120 H (74-99) mg/dL Plasma Lactic Acid John 2.4 H* (0.7-2.0) mmol/L Ur Specific [place] 1.041 H (1.001-1.035) Urine Protein Trace H (Negative) Diabetes panel 03/13/23 Range/Units 17:53 Sodium 136 L (137-145) mmol/L Potassium 3.7 (3.5-5.1) mmol/L Chloride 102 (98-107) mmol/L Carbon Dioxide 22 (22-30) mmol/L BUN 26 H (7-17) mg/dL Creatinine 0.92 (0.52-1.04) mg/dL Glucose 120 H (74-99) mg/dL Calcium 9.6 (8.4-10.2) mg/dL AST 23 (14-36) U/L ALT 16 (4-34) U/L Alkaline Phosphatase 71 (38-126) U/L Total Protein 6.6 (6.3-8.2) g/dL Albumin 4.2 (3.5-5.0) g/dL Calcium panel 03/13/23 Range/Units 17:53 Calcium 9.6 (8.4-10.2) mg/dL Albumin 4.2 (3.5-5.0) g/dL Pituitary panel 03/13/23 Range/Units 17:53 Sodium 136 L (137-145) mmol/L Potassium 3.7 (3.5-5.1) mmol/L Chloride 102 (98-107) mmol/L Carbon Dioxide 22 (22-30) mmol/L BUN 26 H (7-17) mg/dL Creatinine 0.92 (0.52-1.04) mg/dL Glucose 120 H (74-99) mg/dL Calcium 9.6 (8.4-10.2) mg/dL Adrenal panel 03/13/23 Range/Units 17:53 Sodium 136 L (137-145) mmol/L Potassium 3.7 (3.5-5.1) mmol/L Chloride 102 (98-107) mmol/L Carbon Dioxide 22 (22-30) mmol/L BUN 26 H (7-17) mg/dL Creatinine 0.92 (0.52-1.04) mg/dL Glucose 120 H (74-99) mg/dL Calcium 9.6 (8.4-10.2) mg/dL Total Bilirubin 0.5 (0.2-1.3) mg/dL AST 23 (14-36) U/L ALT 16 (4-34) U/L Alkaline Phosphatase 71 (38-126) U/L Total Protein 6.6 (6.3-8.2) g/dL Albumin 4.2 (3.5-5.0) g/dL Assessment and Plan Assessment: Small bowel obstruction. Patient continue nasogastric tube decompression. She has no significant bowel function as of yet.
[2023-03-14 07:56] LABS: Basophils % (A) 0 %; Eosinophils # (A) 0.1 k/uL (0-0.7); Eosinophils % (A) 2 %; HCT 35.1 % (34.0-46.0); HGB 11.2 gm/dL (11.4-16.0); Lymphocytes # (A) 1.3 k/uL (1.0-4.8); Lymphocytes % (A) 23 %; MCH 28.8 pg (25.0-35.0); MCHC 31.8 g/dL (31.0-37.0); MCV 90.6 fL (80.0-100.0); Mean Platelet Volume 7.9; Monocytes # (A) 0.3 k/uL (0-1.0); Monocytes % (A) 5 %; Neutrophils # (A) 3.8 k/uL (1.3-7.7); Neutrophils % (A) 67 %; Platelet Count 162 k/uL (150-450); RBC 3.88 m/uL (3.80-5.40); WBC 5.7 k/uL (3.8-10.6)
[2023-03-14 08:11] LABS: ALT 13 U/L (4-34); AST 21 U/L (14-36); African American GFR (CKD) 73 (>60 ml/min/1.73 sqM); Albumin 3.2 g/dL (3.5-5.0); Alkaline Phosphatase 58 U/L (38-126); Anion Gap 6 mmol/L; Blood Urea Nitrogen 18 mg/dL (7-17); Calcium 8.2 mg/dL (8.4-10.2); Carbon Dioxide 24 mmol/L (22-30); Chloride 108 mmol/L (98-107); Glucose 100 mg/dL (74-99); Non-African American GFR(CKD) 64 (>60 ml/min/1.73 sqM); Potassium 4.3 mmol/L (3.5-5.1); Sodium 138 mmol/L (137-145); Total Bilirubin 0.6 mg/dL (0.2-1.3); Total Protein 5.4 g/dL (6.3-8.2)
[2023-03-14] MEDS: SODIUM CHLORIDE 0.9% 1,000 ML IV SCH ×3 (12:02→21:35)
--- NOTE | 2023-03-14 21:30 | P.CONS ---
History of Present Illness - Reason for Consult Consult date: 03/14/23 Medical management - Chief Complaint Abdominal pain - History of Present Illness Patient is a 77-year-old female with a known history of hypertension, hyperlipidemia, osteoarthritis, GERD, hypothyroidism, degenerative disc disease of the cervical and lumbar spine and history of ACDF, depression and history of diverticulitis, bowel resection, hernia repair and cholecystectomy presents to ER with complaints of abdominal pain, nausea and vomiting. Patient states that she ate fish at lunch around 1 PM and started having lower abdominal pain associated with nausea and able to vomit. Denies any diarrhea. Denies any hematemesis or melena. Denies any fever or chills. No complaints of chest pain or shortness of breath. Presented to ER due to severe pain. CT abdominal pelvis done in the ER showed multiple air-fluid levels within the dilated small bowel. There is related to nondistention of the terminal small bowel. Stool is seen throughout the colon however. Correlate for partial small bowel obstruction versus ileus. Stable mild biliary dilation. Stable cystic lesions within the pancreas. Chest x-ray showed no acute cardiopulmonary process. COPD changes. KUB x-ray showed nasogastric tube distal tip and sideport near the gastroesophageal junction advancement of 10 cm is recommended for optimal placement. Laboratory data showed WBC 8.7 hemoglobin 12.6 and platelets 233 Sodium 136 potassium 3.7 chloride 102 bicarb is 22 BUN 26 and creatinine 0.92 Lactic acid 2.4 on admission Urinalysis is negative for infection. Review of Systems Constitutional: Patient denies any fever or chills . no Generalized weakness. Abdomen: Abdominal pain associate with nausea. No diarrhea. Cardiovascular: Patient denies any chest pain or short of breath no palpita tions. Respiratory: patient denied any cough . no sputum production. No shortness of breath Neurologic: Patient denied any numbness or tingling headache. Musculoskeletal: Patient denies any complaints of joint swelling or deformity. Skin: Negative Psychiatric: Negative Endocrine: No heat or cold intolerance. No recent weight gain. Genitourinary: No dysuria or hematuria. All other 14 point ROS negative except the above Past Medical History Past Medical History: Chest Pain / Angina, GERD/Reflux, Hyperlipidemia, Hypertension, Osteoarthritis (OA), Skin Disorder, Thyroid Disorder Additional Past Medical History / Comment(s): Hx. pancreatitis with pancreatic CYSTS. PSORIASISlt ankle. angina, vitamin D deficiency, degenerative disc disease of the CERIVAL AND lumbar spine unable to lift anything over 10# or stand for long periods of time. Diverticulitis. Bronchits. UTERINE fibroids. Falls. Hiatal hernia History of Any Multi-Drug Resistant Organisms: MRSA, Other MDRO Year Discovered:: 2013 in [facility] MDRO Source:: spider bite on lt leg Past Surgical History: Adenoidectomy, Back Surgery, Bowel Resection, C holecystectomy, Hernia Repair, Hysterectomy, Orthopedic Surgery, Tonsillectomy Additional Past Surgical History / Comment(s): Anterior cervical discectomy with fusion(toal 3 sx has wire in neck) , lumbar fusion 3-screws in back. R hip surgery(NOT A HIP REPLACEMENT). Left 1st rib removal r/t thoracic outlet syndrome. Hiatal hernia surg. Bilateral cataract surgery with lens implant Lt elbow tendon release. Sx on gums d/t infection. Dental implant Past Anesthesia/Blood Transfusion Reactions: No Reported Reaction Additional Past Anesthesia/Blood Transfusion Reaction / Comm: blood transfusion in 1969-no reaction Past Psychological History: Depression Additional Psychological History / Comment(s): lives alone, senior center, cane at times used Smoking Status: Never smoker Past Alcohol Use History: None Reported Past Drug Use History: None Reported - Past Family History Father History Unknown: Yes Family Medical History: Coronary Artery Disease (CAD) Additional Family Medical History / Comment(s): aortic aneurysm at 72 Mother Family Medical History: CVA/TIA Brother(s) Family Medical History: No Reported History Sister(s) Family Medical History: Vascular Disorder Son(s) Family Medical History: No Reported History Daughter(s) Family Medical History: Unable to Obtain Medications and Allergies Home Medications Medication Instructions Recorded Confirmed Type amLODIPine [Norvasc] 2.5 mg PO DAILY@89905/17/21 03/13/23 History Aspirin EC [Ecotrin Low Dose] 81 mg PO DAILY@89903/13/23 03/13/23 History Donepezil [Aricept] 5 mg PO DAILY@89903/13/23 03/13/23 History Levothyroxine Sodium [Synthroid] 100 mcg PO DAILY@79903/13/23 03/13/23 History Oxybutynin Chloride [oxyBUTYnin 10 mg PO DAILY@89903/13/23 03/13/23 History chloride ER] Sertraline [Zoloft] 50 mg PO DAILY@89903/13/23 03/13/23 History Allergies Allergy/AdvReac Type Severity Reaction Status Date / Time clindamycin Allergy Rash/Hives Verified 03/13/23 20:16 atorvastatin calcium AdvReac LEG CRAMPS Verified 03/13/23 20:16 [From Lipitor] morphine AdvReac Nausea & Verified 03/13/23 20:16 Vomiting Physical Exam Vitals: Vital Signs Temp Pulse Pulse Resp BP BP Pulse Ox 03/14/23 07:44 97.4 F L 57 L 15 144/55 99 03/14/23 00:27 97.7 F 49 L 18 146/52 98 03/13/23 22:28 59 L 18 155/57 100 03/13/23 17:12 97.8 F 55 L 16 126/89 100 Intake and Output 03/13/23 03/14/23 03/14/23 22:59 06:59 14:59 Intake Total 0 Balance 0 Intake: Oral 0 Other: # Voids 1 Weight 50.802 kg 50.802 kg PHYSICAL EXAMINATION: Patient is lying in the bed comfortably, no acute distress, awake alert and oriented.. HEENT: Normocephalic. Neck is supple. Pupils reactive. Nostrils clear. Oral cavity is moist. Neck reveals no JVD, carotid bruits, or thyromegaly. CHEST EXAMINATION: Trachea is central. Symmetrical expansion. Lung resendiz clear to auscultation and percussion. CARDIAC: Normal S1, S2 with no gallops. No murmurs ABDOMEN: Soft. Bowel sounds diminished. Nontender. No organomegaly. No abdominal bruits. NG tube is present Extremities: reveal no edema. No clubbing or cyanosis Neurologically awake, alert, oriented x3 with well-coordinated movements. No focal deficits noted Skin: No rash or skin lesions. Psychiatric: Coperative. Nonsuicidal, Musculoskeletal: No joint swelling or deformity. Normal range of motion. Results CBC & Chem 7: 03/14/23 07:06 03/14/23 07:06 Labs: Abnormal Lab Results - Last 24 Hours (Table) 03/13/23 03/13/23 03/13/23 Range/Units 17:53 17:53 17:53 Hgb (11.4-16.0) gm/dL Sodium 136 L (137-145) mmol/L Chloride (98-107) mmol/L BUN 26 H (7-17) mg/dL Glucose 120 H (74-99) mg/dL Plasma Lactic Acid John 2.4 H* (0.7-2.0) mmol/L Calcium (8.4-10.2) mg/dL Total Protein (6.3-8.2) g/dL Albumin (3.5-5.0) g/dL Ur Specific [place] 1.041 H (1.001-1.035) Urine Protein Trace H (Negative) 03/14/23 03/14/23 Range/Units 07:06 07:06 Hgb 11.2 L (11.4-16.0) gm/dL Sodium (137-145) mmol/L Chloride 108 H (98-107) mmol/L BUN 18 H (7-17) mg/dL Glucose 100 H (74-99) mg/dL Plasma Lactic Acid John (0.7-2.0) mmol/L Calcium 8.2 L (8.4-10.2) mg/dL Total Protein 5.4 L (6.3-8.2) g/dL Albumin 3.2 L (3.5-5.0) g/dL Ur Specific [place] (1.001-1.035) Urine Protein (Negative) Assessment and Plan Assessment: Abdominal pain secondary to partial small bowel obstruction. Prior history of abdominal surgeries-bowel resection, cholecystectomy, hysterectomy and hernia repair. Cervical and lumbar degenerative disc disease. History of ACDF. Hypertension Hyperlipidemia GERD Hypothyroidism Depression DVT prophylaxis with heparin subcu. Plan: Patient will be continued on IV hydration and nothing by mouth. NG tube is in place. Patient will be started back on levothyroxine and Norvasc at this time and follow blood pressure closely. Continue with pain management. Follow-up BMP. Further recommendations based on clinical course. Thank you for your consult. Time with Patient: Greater than 30
[2023-03-14] MEDS: HEPARIN SODIUM,PORCINE/PF 5,000 UNIT/0.5 ML SYRINGE SQ SCH (21:35)
[2023-03-14 22:26] LABS: Glucose,Whole Blood 80 mg/dL (70-110)
[2023-03-15] MEDS ORDERED: ACETAMINOPHEN TAB 325 MG TAB PO PRN (05:33)
[2023-03-15 06:28] LABS: Glucose,Whole Blood 81 mg/dL (70-110)
[2023-03-15] MEDS: LEVOTHYROXINE 100 MCG TAB PO SCH (08:01)
[2023-03-15] MEDS: amLODIPine 2.5 MG TAB PO SCH (08:01)
[2023-03-15] MEDS: SERTRALINE 50 MG TAB PO SCH (08:01)
[2023-03-15] MEDS: HEPARIN SODIUM,PORCINE/PF 5,000 UNIT/0.5 ML SYRINGE SQ SCH ×2 (08:01→20:47)
[2023-03-15] MEDS: OXYBUTYNIN 10 MG TAB.ER.24 PO SCH (08:02)
--- NOTE | 2023-03-15 09:34 | P.PN ---
Progress Note - Text Progress Note Date: 03/15/23 Patient still has not had any significant flatus. On exam her vital signs are stable. Abdomen soft. There is no significant tenderness. Small bowel structure and was likely related to adhesions. Patient received nasogastric tube decompression and supportive care.
[2023-03-15 13:31] LABS: Glucose,Whole Blood 68 mg/dL (70-110)
[2023-03-15] MEDS: DEXTROSE 5%-0.9% NACL 1,000 ML IV SCH ×2 (13:41→20:47)
[2023-03-15] MEDS: SODIUM CHLORIDE 0.9% 1,000 ML IV SCH (16:13)
[2023-03-15 16:15] LABS: Glucose,Whole Blood 101 mg/dL (70-110)
[2023-03-15 21:24] LABS: Glucose,Whole Blood 109 mg/dL (70-110)
--- NOTE | 2023-03-15 22:28 | P.PN ---
Subjective Progress Note Date: 03/15/23 Patient is a 77-year-old female with a known history of hypertension, hyperlipidemia, osteoarthritis, GERD, hypothyroidism, degenerative disc disease of the cervical and lumbar spine and history of ACDF, depression and history of diverticulitis, bowel resection, hernia repair and cholecystectomy presents to ER with complaints of abdominal pain, nausea and vomiting. Patient states that she ate fish at lunch around 1 PM and started having lower abdominal pain associated with nausea and able to vomit. Denies any diarrhea. Denies any hematemesis or melena. Denies any fever or chills. No complaints of chest pain or shortness of breath. Presented to ER due to severe pain. CT abdominal pelvis done in the ER showed multiple air-fluid levels within the dilated small bowel. There is related to nondistention of the terminal small bowel. Stool is seen throughout the colon however. Correlate for partial small bowel obstruction versus ileus. Stable mild biliary dilation. Stable cystic lesions within the pancreas. Chest x-ray showed no acute cardiopulmonary process. COPD changes. KUB x-ray showed nasogastric tube distal tip and sideport near the gastroesophageal junction advancement of 10 cm is recommended for optimal placement. Laboratory data showed WBC 8.7 hemoglobin 12.6 and platelets 233 Sodium 136 potassium 3.7 chloride 102 bicarb is 22 BUN 26 and creatinine 0.92 Lactic acid 2.4 on admission Urinalysis is negative for infection. 03/15/2023. Patient is currently lying in the bed. Awake alert and oriented x3. NG tube is draining bilious fluid. Abdominal distention and pain is almost resolved. Patient has not passing flatus. Otherwise patient is afebrile. No complaints of chest pain or shortness of breath. Laboratory data reviewed. Currently patient is nothing by mouth. Current medications reviewed. Objective - Vital Signs Vital signs: Vital Signs Temp 98.3 F 03/15/23 13:46 Pulse 69 03/15/23 13:46 Resp 16 03/15/23 13:46 BP 133/64 03/15/23 13:46 Pulse Ox 97 03/15/23 13:46 FiO2 Intake & Output 03/14/23 03/15/23 03/15/23 18:59 06:59 18:59 Other: # Voids 6 1 4 - Exam PHYSICAL EXAMINATION: Patient is lying in the bed comfortably, no acute distress, awake alert and oriented.. HEENT: Normocephalic. Neck is supple. Pupils reactive. Nostrils clear. Oral cavity is moist. Neck reveals no JVD, carotid bruits, or thyromegaly. CHEST EXAMINATION: Trachea is central. Symmetrical expansion. Lung resendiz clear to auscultation and percussion. CARDIAC: Normal S1, S2 with no gallops. No murmurs ABDOMEN: Soft. Bowel sounds diminished. Nontender. No organomegaly. No abdominal bruits. NG tube is present Extremities: reveal no edema. No clubbing or cyanosis Neurologically awake, alert, oriented x3 with well-coordinated movements. No focal deficits noted Skin: No rash or skin lesions. Psychiatric: Coperative. Nonsuicidal, Musculoskeletal: No joint swelling or deformity. Normal range of motion. - Labs CBC & Chem 7: 03/14/23 07:06 03/14/23 07:06 Labs: Abnormal Lab Results - Last 24 Hours (Table) 03/15/23 Range/Units 13:28 POC Glucose (mg/dL) 68 L (70-110) mg/dL Microbiology - Last 24 Hours (Table) 03/13/23 20:35 Blood Culture - Preliminary Blood 03/13/23 20:20 Blood Culture - Preliminary Blood Assessment and Plan Assessment: Abdominal pain secondary to partial small bowel obstruction due to adhesions Prior history of abdominal surgeries-bowel resection, cholecystectomy, hysterectomy and hernia repair. Cervical and lumbar degenerative disc disease. History of ACDF. Hypertension Hyperlipidemia GERD Hypothyroidism Depression DVT prophylaxis with heparin subcu. Plan: Patient will be continued on IV hydration and nothing by mouth. NG tube is in place. Patient will be continued on levothyroxine and Norvasc at this time and follow blood pressure closely. Continue with pain management. Follow-up BMP. Further recommendations based on clinical course.
[2023-03-16 05:58] LABS: Glucose,Whole Blood 112 mg/dL (70-110)
[2023-03-16 08:25] LABS: African American GFR (CKD) >90 (>60 ml/min/1.73 sqM); Anion Gap 7 mmol/L; Blood Urea Nitrogen 12 mg/dL (7-17); Calcium 8.4 mg/dL (8.4-10.2); Carbon Dioxide 24 mmol/L (22-30); Chloride 106 mmol/L (98-107); Glucose 123 mg/dL (74-99); Non-African American GFR(CKD) 83 (>60 ml/min/1.73 sqM); Potassium 3.3 mmol/L (3.5-5.1); Sodium 137 mmol/L (137-145)
[2023-03-16] MEDS: HEPARIN SODIUM,PORCINE/PF 5,000 UNIT/0.5 ML SYRINGE SQ SCH ×2 (09:00→20:35)
[2023-03-16] MEDS: amLODIPine 2.5 MG TAB PO SCH (09:00)
[2023-03-16] MEDS: LEVOTHYROXINE 100 MCG TAB PO SCH (09:00)
[2023-03-16] MEDS: SERTRALINE 50 MG TAB PO SCH (09:00)
[2023-03-16] MEDS: OXYBUTYNIN 10 MG TAB.ER.24 PO SCH (09:00)
[2023-03-16] MEDS ORDERED: Potassium Replacement Protocol 1 EACH MISC MISCELLANE PRN (09:43)
[2023-03-16] MEDS: POTASSIUM CHLORIDE 10 MEQ in WATER FOR INJECTION 1 100ML.BAG IVPB SCH ×4 (10:43→15:39)
[2023-03-16] MEDS: DEXTROSE 5%-0.9% NACL 1,000 ML IV SCH (10:44)
[2023-03-16 11:14] LABS: Glucose,Whole Blood 124 mg/dL (70-110)
[2023-03-16 16:38] LABS: Glucose,Whole Blood 173 mg/dL (70-110)
--- NOTE | 2023-03-16 20:09 | P.PN ---
Subjective Progress Note Date: 03/16/23 Patient is a 77-year-old female with a known history of hypertension, hyperlipidemia, osteoarthritis, GERD, hypothyroidism, degenerative disc disease of the cervical and lumbar spine and history of ACDF, depression and history of diverticulitis, bowel resection, hernia repair and cholecystectomy presents to ER with complaints of abdominal pain, nausea and vomiting. Patient states that she ate fish at lunch around 1 PM and started having lower abdominal pain associated with nausea and able to vomit. Denies any diarrhea. Denies any hematemesis or melena. Denies any fever or chills. No complaints of chest pain or shortness of breath. Presented to ER due to severe pain. CT abdominal pelvis done in the ER showed multiple air-fluid levels within the dilated small bowel. There is related to nondistention of the terminal small bowel. Stool is seen throughout the colon however. Correlate for partial small bowel obstruction versus ileus. Stable mild biliary dilation. Stable cystic lesions within the pancreas. Chest x-ray showed no acute cardiopulmonary process. COPD changes. KUB x-ray showed nasogastric tube distal tip and sideport near the gastroesophageal junction advancement of 10 cm is recommended for optimal placement. Laboratory data showed WBC 8.7 hemoglobin 12.6 and platelets 233 Sodium 136 potassium 3.7 chloride 102 bicarb is 22 BUN 26 and creatinine 0.92 Lactic acid 2.4 on admission Urinalysis is negative for infection. 03/15/2023. Patient is currently lying in the bed. Awake alert and oriented x3. NG tube is draining bilious fluid. Abdominal distention and pain is almost resolved. Patient has not passing flatus. Otherwise patient is afebrile. No complaints of chest pain or shortness of breath. Laboratory data reviewed. Currently patient is nothing by mouth. Current medications reviewed. 03/16/2023 Patient is seen and evaluated and follow-up this morning continues with NG tube with less drainage noted and patient is passing gas and positive bowel sounds noted on exam. Patient currently nothing by mouth and awaiting general surgery to evaluate for possible advance in diet. Per nursing staff patient is having some occasional hallucinations and will review medications and also add low-dose Seroquel at night with concerns of hospital-acquired delirium. Patient is afebrile with no reports of shortness of breath or chest pain. Patient reports has been urinating with no difficulties and reports some improvement in abdominal pain. No bowel movements as of yet. Review of systems: Constitutional: No reports of fatigue, fever, or chills Cardiovascular: No reports of chest pain or palpitations Respiratory: No reports of shortness of breath or cough GI: No reports of nausea, vomiting, or diarrhea, reports passing gas : No reports of dysuria or retention Neurovascular: No reports of weakness or numbness All medications have been reviewed PHYSICAL EXAMINATION: Patient is sitting up in the bed comfortably, no acute distress, awake alert and oriented.. HEENT: Normocephalic. Neck is supple. Pupils reactive. Nostrils clear. Oral cavity is moist. Neck reveals no JVD, carotid bruits, or thyromegaly. CHEST EXAMINATION: Trachea is central. Symmetrical expansion. Lung resedniz clear to auscultation and percussion. CARDIAC: Normal S1, S2 with no gallops. No murmurs ABDOMEN: Soft. Bowel sounds diminished. Nontender. No organomegaly. No abdominal bruits. NG tube is present in the right nares Extremities: reveal no edema. No clubbing or cyanosis Neurologically awake, alert, oriented x3 with well-coordinated movements. No focal deficits noted Skin: No rash or skin lesions. Psychiatric: Cooperative. Non-suicidal, Musculoskeletal: No joint swelling or deformity. Normal range of motion. Assessment: Abdominal pain secondary to partial small bowel obstruction due to adhesions, improving Prior history of abdominal surgeries-bowel resection, cholecystectomy, hysterectomy and hernia repair. Cervical and lumbar degenerative disc disease. History of ACDF. Hypertension Hallucinations, possibly secondary to hospital-acquired delirium Hyperlipidemia GERD Hypothyroidism Depression DVT prophylaxis with heparin subcu. GI prophylaxis Full code Plan: Patient will be continued on IV hydration and NG tube is in place. Patient is having positive bowel sounds and reports the passing gas awaiting surgery evaluation to possibly initiate diet All medications reviewed and resumed as appropriate Continue with pain management. Recommend limiting narcotic and MEDICAL RECORD ASSISTANT agents Per nursing staff patient is having some hallucinations although not noted on exam and having concerns of possible hospital-acquired delirium, will add low-do se Seroquel Recommend repeat labs and will continue to follow along with general surgery. Thank you kindly for this consultation. The impression and plan of care has been dictated by Yessi Rogers, Nurse Practitioner as directed. Dr. Sedrick MD I have performed a history and examination and MDM of this patient, discussed the same with the dictator, and agree with the dictator's assessment and plan as written ,documented as a scribe. Based on total visit time, I have performed more than 50% of the visit. Objective - Vital Signs Vital signs: Vital Signs Temp 97.6 F 03/16/23 07:10 Pulse 60 03/16/23 07:10 Resp 15 03/16/23 07:10 BP 135/57 03/16/23 07:10 Pulse Ox 98 03/16/23 07:10 FiO2 Intake & Output 03/15/23 03/16/23 03/16/23 18:59 06:59 18:59 Output Total 400 Balance -400 Output: Gastric Drainage 400 Other: # Voids 4 3 - Labs CBC & Chem 7: 03/14/23 07:06 03/16/23 07:14 Labs: Abnormal Lab Results - Last 24 Hours (Table) 03/15/23 03/16/23 03/16/23 Range/Units 13:28 05:56 07:14 Potassium 3.3 L (3.5-5.1) mmol/L Glucose 123 H (74-99) mg/dL POC Glucose (mg/dL) 68 L 112 H (70-110) mg/dL Microbiology - Last 24 Hours (Table) 03/13/23 20:35 Blood Culture - Preliminary Blood 03/13/23 20:20 Blood Culture - Preliminary Blood
[2023-03-16 20:31] LABS: Glucose,Whole Blood 124 mg/dL (70-110)
[2023-03-16] MEDS: QUEtiapine 25 MG TAB PO SCH (20:34)
[2023-03-17] MEDS: DEXTROSE 5%-0.9% NACL 1,000 ML IV SCH ×2 (01:44→06:52)
[2023-03-17 06:17] LABS: Glucose,Whole Blood 133 mg/dL (70-110)
[2023-03-17 06:19] LABS: Basophils % (A) 0 %; Eosinophils # (A) 0.2 k/uL (0-0.7); Eosinophils % (A) 5 %; HCT 33.5 % (34.0-46.0); Lymphocytes # (A) 1.3 k/uL (1.0-4.8); Lymphocytes % (A) 29 %; MCH 29.4 pg (25.0-35.0); MCHC 32.9 g/dL (31.0-37.0); MCV 89.3 fL (80.0-100.0); Monocytes # (A) 0.3 k/uL (0-1.0); Monocytes % (A) 7 %; Neutrophils # (A) 2.6 k/uL (1.3-7.7); Neutrophils % (A) 56 %; Platelet Count 161 k/uL (150-450); RBC 3.75 m/uL (3.80-5.40); WBC 4.6 k/uL (3.8-10.6)
[2023-03-17 06:29] LABS: African American GFR (CKD) >90 (>60 ml/min/1.73 sqM); Anion Gap 6 mmol/L; Blood Urea Nitrogen 7 mg/dL (7-17); Calcium 8.4 mg/dL (8.4-10.2); Carbon Dioxide 24 mmol/L (22-30); Chloride 107 mmol/L (98-107); Glucose 131 mg/dL (74-99); Magnesium 1.7 mg/dL (1.6-2.3); Non-African American GFR(CKD) 84 (>60 ml/min/1.73 sqM); Potassium 3.7 mmol/L (3.5-5.1); Sodium 137 mmol/L (137-145)
--- NOTE | 2023-03-17 07:40 | P.PN ---
Progress Note - Text Progress Note Date: 03/16/23 Patient feels better. She has passed some gas. On exam vital signs are stable. Abdomen soft nontender Resolving partial small bowel structure. Patient will have her diet increased.
[2023-03-17] MEDS: LEVOTHYROXINE 100 MCG TAB PO SCH (08:40)
[2023-03-17] MEDS: HEPARIN SODIUM,PORCINE/PF 5,000 UNIT/0.5 ML SYRINGE SQ SCH ×2 (08:40→20:27)
[2023-03-17] MEDS: OXYBUTYNIN 10 MG TAB.ER.24 PO SCH (08:40)
[2023-03-17] MEDS: SERTRALINE 50 MG TAB PO SCH (08:40)
[2023-03-17] MEDS: amLODIPine 2.5 MG TAB PO SCH (08:40)
[2023-03-17] MEDS ORDERED: Magnesium Replacement Protocol 1 EACH MISC MISCELLANE PRN (09:14)
[2023-03-17] MEDS ORDERED: MAGNESIUM SULFATE-D5W PMX 1 GM in DEXTROSE/WATER 1 100ML.BAG IVPB ONE (09:30)
[2023-03-17 11:48] LABS: Glucose,Whole Blood 137 mg/dL (70-110)
--- NOTE | 2023-03-17 13:39 | P.PN ---
Subjective Progress Note Date: 03/17/23 CHIEF COMPLAINT: Small bowel obstruction HISTORY OF PRESENT ILLNESS: Patient reports improvement in her abdominal pain. She rates the pain about a 1 out of 2. She has started having flatus. The last time she passed any gas was last night. No bowel movements. Denies any nausea or vomiting. She tolerated clear liquids. Afebrile. WBC is 4.6 Hgb 11.0 platelets 161 sodium is 137 potassium 3.7 creatinine 0.68 magnesium 1.7 Patient seen and examined with Dr. huffman PHYSICAL EXAM: VITAL SIGNS: Reviewed. GENERAL: Well-developed in no acute distress. ABDOMEN: Soft. Nondistended. Nontender. NEUROLOGIC: Alert and oriented. Cranial nerves II through XII grossly intact. ASSESSMENT: 1. Partial Small bowel obstruction resolving 2. Prior history of abdominal surgery PLAN: -Advance diet to full liquids -Continue to increase activity level -Anticipate discharge possibly tomorrow Physician Manager Electrical note has been reviewed by physician. Signing provider agrees with the documented findings, assessment, and plan of care. Objective - Vital Signs Vital signs: Vital Signs Temp 97.5 F L 03/17/23 08:00 Pulse 61 03/17/23 08:00 Resp 16 03/17/23 08:00 BP 119/63 03/17/23 08:00 Pulse Ox 97 03/17/23 08:00 FiO2 Intake & Output 03/16/23 03/17/23 03/17/23 18:59 06:59 18:59 Intake Total 1100 118 Output Total 100 Balance -100 1100 118 Intake: Intake, IV Titration 1100 Amount Dextrose 5%-0.9% NaCl 1, 1100 000 ml @ 100 mls/hr IV . Q10H [facility] Rx#:[id number] Oral 118 Output: Gastric Drainage 100 Other: Voiding Method Toilet Bedside Commode # Voids 5 1 - Labs CBC & Chem 7: 03/17/23 05:57 03/17/23 05:57 Labs: Abnormal Lab Results - Last 24 Hours (Table) 03/16/23 03/16/23 03/17/23 Range/Units 16:37 20:28 05:57 RBC 3.75 L (3.80-5.40) m/uL Hgb 11.0 L (11.4-16.0) gm/dL Hct 33.5 L (34.0-46.0) % Glucose (74-99) mg/dL POC Glucose (mg/dL) 173 H 124 H (70-110) mg/dL 03/17/23 03/17/23 03/17/23 Range/Units 05:57 06:16 11:46 RBC (3.80-5.40) m/uL Hgb (11.4-16.0) gm/dL Hct (34.0-46.0) % Glucose 131 H (74-99) mg/dL POC Glucose (mg/dL) 133 H 137 H (70-110) mg/dL Microbiology - Last 24 Hours (Table) 03/13/23 20:35 Blood Culture - Preliminary Blood 03/13/23 20:20 Blood Culture - Preliminary Blood
[2023-03-17] MEDS: QUEtiapine 25 MG TAB PO SCH (20:27)
--- NOTE | 2023-03-18 06:13 | P.PN ---
Subjective Progress Note Date: 03/17/23 Patient is a 77-year-old female with a known history of hypertension, hyperlipidemia, osteoarthritis, GERD, hypothyroidism, degenerative disc disease of the cervical and lumbar spine and history of ACDF, depression and history of diverticulitis, bowel resection, hernia repair and cholecystectomy presents to ER with complaints of abdominal pain, nausea and vomiting. Patient states that she ate fish at lunch around 1 PM and started having lower abdominal pain associated with nausea and able to vomit. Denies any diarrhea. Denies any hematemesis or melena. Denies any fever or chills. No complaints of chest pain or shortness of breath. Presented to ER due to severe pain. CT abdominal pelvis done in the ER showed multiple air-fluid levels within the dilated small bowel. There is related to nondistention of the terminal small bowel. Stool is seen throughout the colon however. Correlate for partial small bowel obstruction versus ileus. Stable mild biliary dilation. Stable cystic lesions within the pancreas. Chest x-ray showed no acute cardiopulmonary process. COPD changes. KUB x-ray showed nasogastric tube distal tip and sideport near the gastroesophageal junction advancement of 10 cm is recommended for optimal placement. Laboratory data showed WBC 8.7 hemoglobin 12.6 and platelets 233 Sodium 136 potassium 3.7 chloride 102 bicarb is 22 BUN 26 and creatinine 0.92 Lactic acid 2.4 on admission Urinalysis is negative for infection. 03/15/2023. Patient is currently lying in the bed. Awake alert and oriented x3. NG tube is draining bilious fluid. Abdominal distention and pain is almost resolved. Patient has not passing flatus. Otherwise patient is afebrile. No complaints of chest pain or shortness of breath. Laboratory data reviewed. Currently patient is nothing by mouth. Current medications reviewed. 03/16/2023 Patient is seen and evaluated and follow-up this morning continues with NG tube with less drainage noted and patient is passing gas and positive bowel sounds noted on exam. Patient currently nothing by mouth and awaiting general surgery to evaluate for possible advance in diet. Per nursing staff patient is having some occasional hallucinations and will review medications and also add low-dose Seroquel at night with concerns of hospital-acquired delirium. Patient is afebrile with no reports of shortness of breath or chest pain. Patient reports has been urinating with no difficulties and reports some improvement in abdominal pain. No bowel movements as of yet. 03/17/2023 Patient is seen and evaluated in follow-up today is passing gas and NG tube was removed. Patient was tolerating clear liquids and diet is being advanced today per surgery. Magnesium slightly low at 1.7 and will replace per protocol. Recommend increased activity as tolerated. Patient is afebrile with no reports of nausea or vomiting noted. Patient denies chest pain or shortness of breath and is currently sitting up in the chair. Review of systems: Constitutional: No reports of fatigue, fever, or chills Cardiovascular: No reports of chest pain or palpitations Respiratory: No reports of shortness of breath or cough GI: No reports of nausea, vomiting, or diarrhea, reports passing gas : No reports of dysuria or retention Neurovascular: No reports of weakness or numbness All medications have been reviewed PHYSICAL EXAMINATION: Patient is sitting up in the chair comfortably, no acute distress, awake alert and oriented x2 her baseline.. HEENT: Normocephalic. Neck is supple. Pupils reactive. Nostrils clear. Oral cavity is moist. Neck reveals no JVD, carotid bruits, or thyromegaly. CHEST EXAMINATION: Trachea is central. Symmetrical expansion. Lung resendiz clear to auscultation and percussion. CARDIAC: Normal S1, S2 with no gallops. No murmurs ABDOMEN: Soft. Bowel sounds noted. Nontender. No organomegaly. No abdominal bruits. Extremities: reveal no edema. No clubbing or cyanosis Neurologically awake, alert, oriented x3 with well-coordinated movements. No focal deficits noted Skin: No rash or skin lesions. Psychiatric: Cooperative. Non-suicidal, Musculoskeletal: No joint swelling or deformity. Normal range of motion. Assessment: Abdominal pain secondary to partial small bowel obstruction due to adhesions, improving Prior history of abdominal surgeries-bowel resection, cholecystectomy, hysterectomy and hernia repair. Cervical and lumbar degenerative disc disease. History of ACDF. Hypertension Hypomagnesemia Hallucinations, possibly secondary to hospital-acquired delirium, improved History of dementia Hyperlipidemia GERD Hypothyroidism Depression DVT prophylaxis with heparin subcu. GI prophylaxis Full code Plan: Patient will be continued on clear liquids and diet slowly being advanced per surgery. NG tube was removed and patient is passing gas All medications reviewed and resumed as appropriate Continue with pain management. Recommend limiting narcotic and LENS MAKER agents Patient does have history of dementia per her niece with concerns of some hospital-acquired delirium. Recommend frequent reorientation and monitor him closely. Magnesium slightly low at 1.7 and will replace and recommend repeat labs We will continue to follow along with general surgery. Thank you kindly for this consultation. The impression and plan of care has been dictated by Yessi Rogers, Nurse Practitioner as directed. Dr. Sedrick MD I have performed a history and examination and MDM of this patient, discussed the same with the dictator, and agree with the dictator's assessment and plan as written ,documented as a scribe. Based on total visit time, I have performed more than 50% of the visit. Objective - Vital Signs Vital signs: Vital Signs Temp 97.5 F L 03/17/23 08:00 Pulse 61 03/17/23 08:00 Resp 16 03/17/23 08:00 BP 119/63 03/17/23 08:00 Pulse Ox 97 03/17/23 08:00 FiO2 Intake & Output 03/16/23 03/17/23 03/17/23 18:59 06:59 18:59 Intake Total 1100 118 Output Total 100 Balance -100 1100 118 Intake: Intake, IV Titration 1100 Amount Dextrose 5%-0.9% NaCl 1, 1100 000 ml @ 100 mls/hr IV . Q10H YULY Rx#:[id number] Oral 118 Output: Gastric Drainage 100 Other: Voiding Method Toilet Bedside Commode # Voids 5 1 - Labs CBC & Chem 7: 03/17/23 05:57 03/17/23 05:57 Labs: Abnormal Lab Results - Last 24 Hours (Table) 03/16/23 03/16/23 03/16/23 Range/Units 11:13 16:37 20:28 RBC (3.80-5.40) m/uL Hgb (11.4-16.0) gm/dL Hct (34.0-46.0) % Glucose (74-99) mg/dL POC Glucose (mg/dL) 124 H 173 H 124 H (70-110) mg/dL 03/17/23 03/17/23 03/17/23 Range/Units 05:57 05:57 06:16 RBC 3.75 L (3.80-5.40) m/uL Hgb 11.0 L (11.4-16.0) gm/dL Hct 33.5 L (34.0-46.0) % Glucose 131 H (74-99) mg/dL POC Glucose (mg/dL) 133 H (70-110) mg/dL Microbiology - Last 24 Hours (Table) 03/13/23 20:35 Blood Culture - Preliminary Blood 03/13/23 20:20 Blood Culture - Preliminary Blood
[2023-03-18 07:42] VITALS: RESP 16
[2023-03-18] MEDS: OXYBUTYNIN 10 MG TAB.ER.24 PO SCH (07:58)
[2023-03-18] MEDS: LEVOTHYROXINE 100 MCG TAB PO SCH (07:58)
[2023-03-18] MEDS: SERTRALINE 50 MG TAB PO SCH (07:58)
[2023-03-18] MEDS: amLODIPine 2.5 MG TAB PO SCH (07:58)
[2023-03-18] MEDS: HEPARIN SODIUM,PORCINE/PF 5,000 UNIT/0.5 ML SYRINGE SQ SCH (07:58)
--- NOTE | 2023-03-18 15:16 | P.DS ---
Providers Date of admission: 03/16/23 08:29 Expected date of discharge: 03/18/23 Attending physician: Deng Camara Consults: 03/13/23 19:36 Consult Physician Stat Consulting Provider: Romeo Dubose Consult Reason/Comments: Medical management Do you want consulting provider notified?: Already Contacted Primary care physician: Roxanna Lozano [facility] Course: Discharge diagnosis 1. Partial Small bowel obstruction resolved with conservative management 2. Prior history of abdominal surgery Hospital course This is a 77-year-old female who presented with abdominal pain. She was found to have evidence of partial small bowel obstruction on CT. She had NG tube placed for decompression. Patient started to have flatus. NG tube removed. She slowly tolerated advancement of diet. She is now having flatus and bowel movements. Tolerating diet. She has been up and ambulating. She's afebrile. Her pain is resolved. She is stable for discharge. Please refer to chart for any further details. Physician Sap Data Architect note has been reviewed by physician. Signing provider agrees with the documented findings, assessment, and plan of care. Patient Condition at Discharge: Stable Plan - Discharge Summary Discharge Rx Participant: Yes New Discharge Prescriptions: Continue Oxybutynin Chloride [oxyBUTYnin chloride ER] 10 mg PO DAILY@09 Donepezil [Aricept] 5 mg PO DAILY@09 Aspirin EC [Ecotrin Low Dose] 81 mg PO DAILY@09 amLODIPine [Norvasc] 2.5 mg PO DAILY@09 Sertraline [Zoloft] 50 mg PO DAILY@09 Levothyroxine Sodium [Synthroid] 100 mcg PO DAILY@0800 Discharge Medication List amLODIPine [Norvasc] 2.5 mg PO DAILY@89905/17/21 [History] Aspirin EC [Ecotrin Low Dose] 81 mg PO DAILY@89903/13/23 [History] Donepezil [Aricept] 5 mg PO DAILY@89903/13/23 [History] Levothyroxine Sodium [Synthroid] 100 mcg PO DAILY@79903/13/23 [History] Oxybutynin Chloride [oxyBUTYnin chloride ER] 10 mg PO DAILY@89903/13/23 [History] Sertraline [Zoloft] 50 mg PO DAILY@89903/13/23 [History] Follow up Appointment(s)/Referral(s): Roxanna Lozano MD [Primary Care Provider] - 1-2 days Deng Camara MD [STAFF PHYSICIAN] - 1 Week Activity/Diet/Wound Care/Special Instructions: Advance diet slowly at home Discharge Disposition: HOME SELF-CARE
[2023-03-18 16:00] VITALS: BP 119/75; PULSE 66; TEMP 97.8
--- NOTE | 2023-03-19 06:10 | P.PN ---
Subjective Progress Note Date: 03/18/23 Patient is a 77-year-old female with a known history of hypertension, hyperlipidemia, osteoarthritis, GERD, hypothyroidism, degenerative disc disease of the cervical and lumbar spine and history of ACDF, depression and history of diverticulitis, bowel resection, hernia repair and cholecystectomy presents to ER with complaints of abdominal pain, nausea and vomiting. Patient states that she ate fish at lunch around 1 PM and started having lower abdominal pain associated with nausea and able to vomit. Denies any diarrhea. Denies any hematemesis or melena. Denies any fever or chills. No complaints of chest pain or shortness of breath. Presented to ER due to severe pain. CT abdominal pelvis done in the ER showed multiple air-fluid levels within the dilated small bowel. There is related to nondistention of the terminal small bowel. Stool is seen throughout the colon however. Correlate for partial small bowel obstruction versus ileus. Stable mild biliary dilation. Stable cystic lesions within the pancreas. Chest x-ray showed no acute cardiopulmonary process. COPD changes. KUB x-ray showed nasogastric tube distal tip and sideport near the gastroesophageal junction advancement of 10 cm is recommended for optimal placement. Laboratory data showed WBC 8.7 hemoglobin 12.6 and platelets 233 Sodium 136 potassium 3.7 chloride 102 bicarb is 22 BUN 26 and creatinine 0.92 Lactic acid 2.4 on admission Urinalysis is negative for infection. 03/15/2023. Patient is currently lying in the bed. Awake alert and oriented x3. NG tube is draining bilious fluid. Abdominal distention and pain is almost resolved. Patient has not passing flatus. Otherwise patient is afebrile. No complaints of chest pain or shortness of breath. Laboratory data reviewed. Currently patient is nothing by mouth. Current medications reviewed. 03/16/2023 Patient is seen and evaluated and follow-up this morning continues with NG tube with less drainage noted and patient is passing gas and positive bowel sounds noted on exam. Patient currently nothing by mouth and awaiting general surgery to evaluate for possible advance in diet. Per nursing staff patient is having some occasional hallucinations and will review medications and also add low-dose Seroquel at night with concerns of hospital-acquired delirium. Patient is afebrile with no reports of shortness of breath or chest pain. Patient reports has been urinating with no difficulties and reports some improvement in abdominal pain. No bowel movements as of yet. 03/17/2023 Patient is seen and evaluated in follow-up today is passing gas and NG tube was removed. Patient was tolerating clear liquids and diet is being advanced today per surgery. Magnesium slightly low at 1.7 and will replace per protocol. Recommend increased activity as tolerated. Patient is afebrile with no reports of nausea or vomiting noted. Patient denies chest pain or shortness of breath and is currently sitting up in the chair. 03/18/2023 Seen in follow-up today reports to having bowel movements and tolerating diet is being advanced per surgery. Patient is for discharge home today. Patient is afebrile with reports of chest pain or shortness of breath. Patient denies any abdominal pain or nausea or vomiting. Patient is medically stable for discharge today. Follow-up magnesium improved after replacement. Encouraged oral intake. Review of systems: Constitutional: No reports of fatigue, fever, or chills Cardiovascular: No reports of chest pain or palpitations Respiratory: No reports of shortness of breath or cough GI: No reports of nausea, vomiting, or diarrhea, reports passing gas and had 2 bowel movements : No reports of dysuria or retention Neurovascular: No reports of weakness or numbness All medications have been reviewed PHYSICAL EXAMINATION: Patient is sitting up in the chair comfortably, no acute distress, awake alert and oriented x2 her baseline.. HEENT: Normocephalic. Neck is supple. Pupils reactive. Nostrils clear. Oral c avity is moist. Neck reveals no JVD, carotid bruits, or thyromegaly. CHEST EXAMINATION: Trachea is central. Symmetrical expansion. Lung resendiz clear to auscultation and percussion. CARDIAC: Normal S1, S2 with no gallops. No murmurs ABDOMEN: Soft. Bowel sounds noted. Nontender. No organomegaly. No abdominal bruits. Extremities: reveal no edema. No clubbing or cyanosis Neurologically awake, alert, oriented x3 with well-coordinated movements. No focal deficits noted Skin: No rash or skin lesions. Psychiatric: Cooperative. Non-suicidal, Musculoskeletal: No joint swelling or deformity. Normal range of motion. Assessment: Abdominal pain secondary to partial small bowel obstruction due to adhesions, improving Prior history of abdominal surgeries-bowel resection, cholecystectomy, h ysterectomy and hernia repair. Cervical and lumbar degenerative disc disease. History of ACDF. Hypertension Hypomagnesemia Hallucinations, possibly secondary to hospital-acquired delirium, improved Acute toxic encephalopathy secondary to narcotic use, improved History of dementia Hyperlipidemia GERD Hypothyroidism Depression DVT prophylaxis with heparin subcu. GI prophylaxis Full code Plan: Patient will be continued on advanced diet per surgery. Patient is tolerating with no reports of abdominal pain and is having bowel movements All medications reviewed and resumed as appropriate Continue with pain management. Recommend limiting narcotic and PACK MULE WORKER agents Patient does have history of dementia per her niece with concerns of some hospital-acquired delirium. Recommend frequent reorientation and monitor him closely. Magnesium improved after replacement and encouraged oral intake Patient anticipates discharge today. Patient is medically stable for discharge home. We will continue to follow along with general surgery. Thank you kindly for this consultation. The impression and plan of care has been dictated by Yessi Rogers, Nurse Practitioner as directed. Dr. Sedrick MD I have performed a history and examination and MDM of this patient, discussed the same with the dictator, and agree with the dictator's assessment and plan as written ,documented as a scribe. Based on total visit time, I have performed more than 50% of the visit. Objective - Vital Signs Vital signs: Vital Signs Temp 97.9 F 03/18/23 07:00 Pulse 60 03/18/23 07:00 Resp 16 03/18/23 07:58 BP 123/66 03/18/23 07:00 Pulse Ox 98 03/18/23 07:00 FiO2 Intake & Output 03/17/23 03/18/23 03/18/23 18:59 06:59 18:59 Intake Total 1014 Balance 1014 Intake: Oral 1014 Other: Voiding Method Toilet Toilet Toilet Bedside Commode # Voids 1 1 # Bowel Movements 1 - Labs CBC & Chem 7: 03/17/23 05:57 03/17/23 05:57 Labs: Abnormal Lab Results - Last 24 Hours (Table) 03/17/23 Range/Units 11:46 POC Glucose (mg/dL) 137 H (70-110) mg/dL
== END 2023-03-18 17:03 | disposition home or self-care (01) | DRG 388 ==
LOC: EC 16:59 → 4SSUR 22:51 → OBSVTOIN 03-16 08:29
PROVIDERS: ADMIT Surgery; ATTEND Surgery
PROC: 0D9670Z Drainage of Stomach with Drainage Device, Via Natural or Artificial Opening (ICD-10-PCS; principal; 2023-03-13)
DX: K56.51 Intestinal adhesions [bands], with partial obstruction (principal); G92.8 Other toxic encephalopathy; F03.92 Unspecified dementia, unspecified severity, with psychotic disturbance; F03.93 Unspecified dementia, unspecified severity, with mood disturbance; K86.2 Cyst of pancreas; J44.9 Chronic obstructive pulmonary disease, unspecified; Z28.310 Unvaccinated for COVID-19; I10 Essential (primary) hypertension; K21.9 Gastro-esophageal reflux disease without esophagitis; E03.9 Hypothyroidism, unspecified; E78.5 Hyperlipidemia, unspecified; E83.42 Hypomagnesemia; M51.36 Other intervertebral disc degeneration, lumbar region; M50.30 Other cervical disc degeneration, unspecified cervical region; M19.90 Unspecified osteoarthritis, unspecified site; K44.9 Diaphragmatic hernia without obstruction or gangrene; R07.9 Chest pain, unspecified; L40.9 Psoriasis, unspecified; Z79.82 Long term (current) use of aspirin; Z79.890 Hormone replacement therapy; Z79.899 Other long term (current) drug therapy; Z91.81 History of falling; Z98.1 Arthrodesis status; Z88.1 Allergy status to other antibiotic agents; Z88.5 Allergy status to narcotic agent; Z88.8 Allergy status to other drugs, medicaments and biological substances; Z86.14 Personal history of Methicillin resistant Staphylococcus aureus infection; Z60.2 Problems related to living alone
CPT/HCPCS: 36415; 71045; 74018; 74177; 80048; 80053; 81003; 83605; 83690; 83735; 85025; 87040; 96365; 96366; 96367; 96375; 99285

== ENCOUNTER 2023-05-02 03:36 | Emergency (ER) | payer MEDICARE ==
[2023-05-02] MEDS ORDERED: SODIUM CHLORIDE 0.9% 500 ML 500 ML IV ONE (03:42)
[2023-05-02 04:14] LABS: Glucose,Whole Blood 96 mg/dL (70-110)
--- NOTE | 2023-05-02 04:28 | ED ---
Altered Mental Status HPI - General Source: patient, EMS, RN notes reviewed, old records reviewed Mode of arrival: EMS Limitations: no limitations - History of Present Illness MD Complaint: altered mental status -: hour(s) Severity: moderate Consistency of Symptoms: waxing and waning, getting worse Context: history of similar presentation Associated Symptoms: denies other symptoms Treatments Prior to Arrival: glucose <Rolf Stevens - Last Filed: 05/02/23 06:01> <Elroy Butler - Last Filed: 05/02/23 12:42> - General Chief Complaint: Psychiatric Symptoms Stated Complaint: Hallucinations Time Seen by Provider: 05/02/23 03:41 - History of Present Illness Initial Comments: This is a 77-year-old female to the emergency department for evaluation. Patient presents today for evaluation of altered mental status patient is seeing and talking to people who aren't there. Patient denies any history of this she understands this which she is doing is an appropriate but she called EMS that she was concerned over what she was feeling and thinking. No other complaints homicidal or suicidal and denies drugs or alcohol abuse (Rolf Stevens) - Related Data Home Medications Medication Instructions Recorded Confirmed amLODIPine [Norvasc] 2.5 mg PO DAILY@89905/17/21 03/13/23 Aspirin EC [Ecotrin Low Dose] 81 mg PO DAILY@89903/13/23 03/13/23 Donepezil [Aricept] 5 mg PO DAILY@89903/13/23 03/13/23 Levothyroxine Sodium [Synthroid] 100 mcg PO DAILY@79903/13/23 03/13/23 Oxybutynin Chloride [oxyBUTYnin 10 mg PO DAILY@89903/13/23 03/13/23 chloride ER] Sertraline [Zoloft] 50 mg PO DAILY@89903/13/23 03/13/23 Allergies Allergy/AdvReac Type Severity Reaction Status Date / Time clindamycin Allergy Rash/Hives Verified 05/02/23 03:49 atorvastatin calcium AdvReac LEG CRAMPS Verified 05/02/23 03:49 [From Lipitor] morphine AdvReac Nausea & Verified 05/02/23 03:49 Vomiting Review of Systems ROS Other: All systems not noted in ROS Statement are negative. <Rolf Stevens - Last Filed: 05/02/23 06:01> ROS Other: All systems not noted in ROS Statement are negative. <LukeElroy - Last Filed: 05/02/23 12:42> ROS Statement: Those systems with pertinent positive or pertinent negative responses have been documented in the HPI. Past Medical History Past Medical History: Chest Pain / Angina, GERD/Reflux, Hyperlipidemia, Hypertension, Osteoarthritis (OA), Skin Disorder, Thyroid Disorder Additional Past Medical History / Comment(s): Hx. pancreatitis with pancreatic CYSTS. PSORIASISlt ankle. angina, vitamin D deficiency, degenerative disc disease of the CERIVAL AND lumbar spine unable to lift anything over 10# or stand for long periods of time. Diverticulitis. Bronchits. UTERINE fibroids. Falls. Hiatal hernia History of Any Multi-Drug Resistant Organisms: MRSA, Other MDRO Date of last positivie culture/infection: 2013 in [facility] MDRO Source:: spider bite on lt leg Past Surgical History: Adenoidectomy, Back Surgery, Bowel Resection, Cholecystectomy, Hernia Repair, Hysterectomy, Orthopedic Surgery, Tonsillectomy Additional Past Surgical History / Comment(s): Anterior cervical discectomy with fusion(toal 3 sx has wire in neck) , lumbar fusion 3-screws in back. R hip surgery(NOT A HIP REPLACEMENT). Left 1st rib removal r/t thoracic outlet syndrome. Hiatal hernia surg. Bilateral cataract surgery with lens implant Lt elbow tendon release. Sx on gums d/t infection. Dental implant Past Anesthesia/Blood Transfusion Reactions: No Reported Reaction Additional Past Anesthesia/Blood Transfusion Reaction / Comment(s): blood transfusion in 1970-no reaction Past Psychological History: Depression Smoking Status: Never smoker Past Alcohol Use History: None Reported Past Drug Use History: None Reported - Past Family History Father History Unknown: Yes Family Medical History: Coronary Artery Disease (CAD) Additional Family Medical History / Comment(s): aortic aneurysm at 72 Mother Family Medical History: CVA/TIA Brother(s) Family Medical History: No Reported History Sister(s) Family Medical History: Vascular Disorder Son(s) Family Medical History: No Reported History Daughter(s) Family Medical History: Unable to Obtain <Rolf Stevens - Last Filed: 05/02/23 06:01> General Exam Limitations: no limitations General appearance: alert, in no apparent distress Head exam: Present: atraumatic, normocephalic, normal inspection Eye exam: Present: normal appearance, PERRL, EOMI. Absent: scleral icterus, conjunctival injection, periorbital swelling ENT exam: Present: normal exam, mucous membranes moist Neck exam: Present: normal inspection. Absent: tenderness, meningismus, lymphadenopathy Respiratory exam: Present: normal lung sounds bilaterally. Absent: respiratory distress, wheezes, rales, rhonchi, stridor Cardiovascular Exam: Present: regular rate, normal rhythm, normal heart sounds. Absent: systolic murmur, diastolic murmur, rubs, gallop, clicks GI/Abdominal exam: Present: soft, normal bowel sounds. Absent: distended, tenderness, guarding, rebound, rigid Extremities exam: Present: normal inspection, full ROM, normal capillary refill. Absent: tenderness, pedal edema, joint swelling, calf tenderness Back exam: Present: normal inspection Neurological exam: Present: alert, oriented X3, CN II-XII intact Psychiatric exam: Present: normal affect, normal mood Skin exam: Present: warm, dry, intact, normal color. Absent: rash <Rolf Stevens - Last Filed: 05/02/23 06:01> Course <Rolf Stevens - Last Filed: 05/02/23 06:01> Vital Signs 05/02/23 05/02/23 05/02/23 03:38 06:00 07:45 Temperature 97.6 F Pulse Rate 50 L 50 L 54 L Respiratory 16 16 16 Rate Blood Pressure 114/67 127/57 117/99 O2 Sat by Pulse 98 95 99 Oximetry 05/02/23 12:20 Temperature 97.7 F Pulse Rate 63 Respiratory 20 Rate Blood Pressure 127/75 O2 Sat by Pulse 98 Oximetry - Reevaluation(s) Reevaluation #1: 05/02/23 06:03 Medical record is reviewed (Rolf Stevens) Reevaluation #2: 05/02/23 06:03 Patient has no real change in symptoms here in the ER but is lucid (Elias Stevens) Reevaluation #4: 05/02/23 06:03 Was pt. sent in by a medical professional or institution (Dr., PA, CLEANING MATRON, urgent care, hospital, or fci...) When possible be specific @ -no Did you speak to anyone other than the patient for history (EMS, parent, family, police, friend...)? What history was obtained from this source @ -no Did you review nursing and triage notes (agree or disagree)? Why? @ -agree Are old charts reviewed (outside hosp., previous admission, EMS record, old EKG, old radiological studies, urgent care reports/EKG's, fci records)? Report findings @ -yes Differential Diagnosis (chest pain, altered mental status, abdominal pain women, abdominal pain men, vaginal bleeding, weakness, fever, dyspnea, syncope, headache, dizziness, GI bleed, back pain, seizure, CVA, palpatations, mental health, musculoskeletal)? @ -prior EKG interpreted by me (3pts min.). @ -yes X-rays interpreted by me (1pt min.). @ -yes CT interpreted by me (1pt min.). @ -no U/S interpreted by me (1pt. min.). @ -no What testing was considered but not performed or refused? (CT, X-rays, U/S, labs)? Why? @ -none What meds were considered but not given or refused? Why? @ -none Did you discuss the management of the patient with other professionals (professionals i.e. MATTHIEU Flanagan, CLE[employer], lab, RT, psych nurse, secondary social studies teacher, technical operations specialist, teacher, telecommunications officer, employment evaluator/case manager)? Give summary @ -no Was smoking cessation discussed for >3mins.? @ -no Was critical care preformed (if so, how long)? @ -no Were there social determinants of health that impacted care today? How? (Homelessness, low income, unemployed, alcoholism, drug addiction, transportation, low edu. Level, literacy, decrease access to med. care, assisted, rehab)? @ -none Was there de-escalation of care discussed even if they declined (Discuss DNR or withdrawal of care, Hospice)? DNR status @ -no What co-morbidities impacted this encounter? (DM, HTN, Smoking, COPD, CAD, Cancer, CVA, ARF, Chemo, Hep., AIDS, mental health diagnosis, sleep apnea, morbid obesity)? @ -none Was patient admitted / discharged? Hospital course, mention meds given and route, prescriptions, significant lab abnormalities, going to OR and other pertinent info. @ - Undiagnosed new problem with uncertain prognosis? @ -no Drug Therapy requiring intensive monitoring for toxicity (Heparin, Nitro, Insulin, Cardizem)? @ -no Were any procedures done? @ -no Diagnosis/symptom? @ - Acute, or Chronic, or Acute on Chronic? @ -Acute Uncomplicated (without systemic symptoms) or Complicated (systemic symptoms)? @ -Complicated Side effects of treatment? @ -no Exacerbation, Progression, or Severe Exacerbation? @ -exacerbation Poses a threat to life or bodily function? How? (Chest pain, [place], VA, pneumonia, PE, COPD, DKA, ARF, appy, cholecystitis, CVA, Diverticulitis, Homicidal, Suicidal, threat to staff... and all critical care pts) @ -yes (Rolf Stevens) Medical Decision Making - Lab Data Result diagrams: 05/02/23 04:18 05/02/23 04:18 - EKG Data -: EKG Interpreted by Me (EKG is sinus bradycardic 48 OR 225 QRS 87 QTc 448) <Rolf Stevens - Last Filed: 05/02/23 06:01> - Lab Data Result diagrams: 05/02/23 04:18 05/02/23 04:18 <Elroy Butler - Last Filed: 05/02/23 12:42> - Medical Decision Making The patient was evaluated by the EPS service found to be not a risk to herself or anyone else he went home with a friend. We'll follow up outpatient. She will back to her assisted living residence. (Elroy Butler) - Lab Data Lab Results 05/02/23 05/02/23 05/02/23 Range/Units 04:12 04:18 04:18 WBC 4.6 (3.8-10.6) k/uL RBC 3.52 L (3.80-5.40) m/uL Hgb 10.6 L (11.4-16.0) gm/dL Hct 31.3 L (34.0-46.0) % MCV 88.9 (80.0-100.0) fL MCH 30.2 (25.0-35.0) pg MCHC 34.0 (31.0-37.0) g/dL RDW 13.9 (11.5-15.5) % Plt Count 183 (150-450) k/uL MPV 7.8 Neutrophils % 47 % Lymphocytes % 38 % Monocytes % 7 % Eosinophils % 5 % Basophils % 1 % Neutrophils # 2.1 (1.3-7.7) k/uL Lymphocytes # 1.7 (1.0-4.8) k/uL Monocytes # 0.3 (0-1.0) k/uL Eosinophils # 0.2 (0-0.7) k/uL Basophils # 0.0 (0-0.2) k/uL PT 10.2 (9.0-12.0) sec INR 1.0 (<1.2) APTT 23.4 (22.0-30.0) sec Sodium (137-145) mmol/L Potassium (3.5-5.1) mmol/L Chloride (98-107) mmol/L Carbon Dioxide (22-30) mmol/L Anion Gap mmol/L BUN (7-17) mg/dL Creatinine (0.52-1.04) mg/dL Est GFR (CKD-EPI)AfAm (>60 ml/min/1.73 sqM) Est GFR (CKD-EPI)NonAf (>60 ml/min/1.73 sqM) Glucose (74-99) mg/dL POC Glucose (mg/dL) 96 (70-110) mg/dL POC Glu Contract Manager DIVYA Sari Naranjo Calcium (8.4-10.2) mg/dL Phosphorus (2.5-4.5) mg/dL Magnesium (1.6-2.3) mg/dL Total Bilirubin (0.2-1.3) mg/dL AST (14-36) U/L ALT (4-34) U/L Alkaline Phosphatase (38-126) U/L Troponin I (0.000-0.034) ng/mL Total Protein (6.3-8.2) g/dL Albumin (3.5-5.0) g/dL Urine Color Urine Appearance (Clear) Urine pH (5.0-8.0) Ur Specific [place] (1.001-1.035) Urine Protein (Negative) Urine Glucose (UA) (Negative) Urine Ketones (Negative) Urine Blood (Negative) Urine Nitrite (Negative) Urine Bilirubin (Negative) Urine Urobilinogen (<2.0) mg/dL Ur Leukocyte Esterase (Negative) Urine RBC (0-5) /hpf Urine WBC (0-5) /hpf Ur Squamous Epith Cells (0-4) /hpf Urine Bacteria (None) /hpf Urine Mucus (None) /hpf Salicylates mg/dL Urine Opiates Screen (NotDetected) Ur Oxycodone Screen (NotDetected) Urine Methadone Screen (NotDetected) Ur Propoxyphene Screen (NotDetected) Acetaminophen ug/mL Ur Barbiturates Screen (NotDetected) U Tricyclic Antidepress (NotDetected) Ur Phencyclidine Scrn (NotDetected) Ur Amphetamines Screen (NotDetected) U Methamphetamines Scrn (NotDetected) U Benzodiazepines Scrn (NotDetected) Urine Cocaine Screen (NotDetected) U Marijuana (THC) Screen (NotDetected) Serum Alcohol mg/dL 05/02/23 05/02/23 05/02/23 Range/Units 04:18 04:18 04:57 WBC (3.8-10.6) k/uL RBC (3.80-5.40) m/uL Hgb (11.4-16.0) gm/dL Hct (34.0-46.0) % MCV (80.0-100.0) fL MCH (25.0-35.0) pg MCHC (31.0-37.0) g/dL RDW (11.5-15.5) % Plt Count (150-450) k/uL MPV Neutrophils % % Lymphocytes % % Monocytes % % Eosinophils % % Basophils % % Neutrophils # (1.3-7.7) k/uL Lymphocytes # (1.0-4.8) k/uL Monocytes # (0-1.0) k/uL Eosinophils # (0-0.7) k/uL Basophils # (0-0.2) k/uL PT (9.0-12.0) sec INR (<1.2) APTT (22.0-30.0) sec Sodium 134 L (137-145) mmol/L Potassium 3.7 (3.5-5.1) mmol/L Chloride 106 (98-107) mmol/L Carbon Dioxide 22 (22-30) mmol/L Anion Gap 6 mmol/L BUN 24 H (7-17) mg/dL Creatinine 0.80 (0.52-1.04) mg/dL Est GFR (CKD-EPI)AfAm 82 (>60 ml/min/1.73 sqM) Est GFR (CKD-EPI)NonAf 71 (>60 ml/min/1.73 sqM) Glucose 97 (74-99) mg/dL POC Glucose (mg/dL) (70-110) mg/dL POC Glu Contract Manager ID Calcium 8.8 (8.4-10.2) mg/dL Phosphorus 3.5 (2.5-4.5) mg/dL Magnesium 2.1 (1.6-2.3) mg/dL Total Bilirubin 0.4 (0.2-1.3) mg/dL AST 19 (14-36) U/L ALT 14 (4-34) U/L Alkaline Phosphatase 52 (38-126) U/L Troponin I <0.012 (0.000-0.034) ng/mL Total Protein 5.7 L (6.3-8.2) g/dL Albumin 3.3 L (3.5-5.0) g/dL Urine Color Light Yellow Urine Appearance Clear (Clear) Urine pH 6.0 (5.0-8.0) Ur Specific [place] 1.010 (1.001-1.035) Urine Protein Negative (Negative) Urine Glucose (UA) Negative (Negative) Urine Ketones Negative (Negative) Urine Blood Trace (Negative) Urine Nitrite Negative (Negative) Urine Bilirubin Negative (Negative) Urine Urobilinogen <2.0 (<2.0) mg/dL Ur Leukocyte Esterase Small (Negative) Urine RBC 0 (0-5) /hpf Urine WBC 0 (0-5) /hpf Ur Squamous Epith Cells 1 (0-4) /hpf Urine Bacteria NONE (None) /hpf Urine Mucus NONE (None) /hpf Salicylates <1.0 mg/dL Urine Opiates Screen Not Detected (NotDetected) Ur Oxycodone Screen Not Detected (NotDetected) Urine Methadone Screen Not Detected (NotDetected) Ur Propoxyphene Screen Not Detected (NotDetected) Acetaminophen <10.0 ug/mL Ur Barbiturates Screen Not Detected (NotDetected) U Tricyclic Antidepress Not Detected (NotDetected) Ur Phencyclidine Scrn Not Detected (NotDetected) Ur Amphetamines Screen Not Detected (NotDetected) U Methamphetamines Scrn Not Detected (NotDetected) U Benzodiazepines Scrn Not Detected (NotDetected) Urine Cocaine Screen Not Detected (NotDetected) U Marijuana (THC) Screen Not Detected (NotDetected) Serum Alcohol <10 mg/dL Disposition <Rolf Stevens - Last Filed: 05/02/23 06:01> Is patient prescribed a controlled substance at d/c from ED?: No Decision Date: 05/02/23 Decision Time: 11:00 <Elroy Butler - Last Filed: 05/02/23 12:42> Clinical Impression: Mood disorder Disposition: HOME SELF-CARE Condition: Good Instructions (If sedation given, give patient instructions): Mood Disorders (ED) Referrals: Roxanna Lozano MD [Primary Care Provider] - 1-2 days
[2023-05-02 04:38] LABS: Basophils % (A) 1 %; Eosinophils # (A) 0.2 k/uL (0-0.7); Eosinophils % (A) 5 %; HCT 31.3 % (34.0-46.0); HGB 10.6 gm/dL (11.4-16.0); Lymphocytes # (A) 1.7 k/uL (1.0-4.8); Lymphocytes % (A) 38 %; MCH 30.2 pg (25.0-35.0); MCV 88.9 fL (80.0-100.0); Mean Platelet Volume 7.8; Monocytes # (A) 0.3 k/uL (0-1.0); Monocytes % (A) 7 %; Neutrophils # (A) 2.1 k/uL (1.3-7.7); Neutrophils % (A) 47 %; Platelet Count 183 k/uL (150-450); RBC 3.52 m/uL (3.80-5.40); RDW 13.9 % (11.5-15.5); WBC 4.6 k/uL (3.8-10.6)
[2023-05-02 04:44] LABS: ALT 14 U/L (4-34); AST 19 U/L (14-36); Acetaminophen <10.0 ug/mL; African American GFR (CKD) 82 (>60 ml/min/1.73 sqM); Albumin 3.3 g/dL (3.5-5.0); Alcohol <10 mg/dL; Alkaline Phosphatase 52 U/L (38-126); Anion Gap 6 mmol/L; Blood Urea Nitrogen 24 mg/dL (7-17); Calcium 8.8 mg/dL (8.4-10.2); Carbon Dioxide 22 mmol/L (22-30); Chloride 106 mmol/L (98-107); Glucose 97 mg/dL (74-99); Magnesium 2.1 mg/dL (1.6-2.3); Non-African American GFR(CKD) 71 (>60 ml/min/1.73 sqM); Phosphorus 3.5 mg/dL (2.5-4.5); Potassium 3.7 mmol/L (3.5-5.1); Salicylate <1.0 mg/dL; Sodium 134 mmol/L (137-145); Total Bilirubin 0.4 mg/dL (0.2-1.3); Total Protein 5.7 g/dL (6.3-8.2)
[2023-05-02 04:46] LABS: Partial Thromboplastin Time 23.4 sec (22.0-30.0); Prothrombin Time 10.2 sec (9.0-12.0)
[2023-05-02 05:22] LABS: Appearance,Urine Clear (Clear); Color,Urine Light Yellow; Glucose,Urine (UA) Negative (Negative); Protein,Urine Negative (Negative)
[2023-05-02 05:23] LABS: Bilirubin,Urine Negative (Negative); Blood,Urine Trace (Negative); Ketones,Urine Negative (Negative); Leukocyte Esterase,Urine Small (Negative); Nitrite,Urine Negative (Negative); Urobilinogen,Urine <2.0 mg/dL (<2.0)
[2023-05-02 05:32] LABS: RBC,Urine 0 /hpf (0-5); Squamous Epithelial Cell,Urine 1 /hpf (0-4); WBC,Urine 0 /hpf (0-5)
[2023-05-02 05:34] LABS: Amphetamine Screen,Urine Not Detected (NotDetected); Barbiturate Screen,Urine Not Detected (NotDetected); Benzodiazepines Screen,Urine Not Detected (NotDetected); Cocaine Screen,Urine Not Detected (NotDetected); Methadone Screen, Urine Not Detected (NotDetected); Opiate Screen,Urine Not Detected (NotDetected); Oxycodone Screen, Urine Not Detected (NotDetected); Phencyclidine Screen,Urine Not Detected (NotDetected); Tricyclic Antidepressant,Urine Not Detected (NotDetected); Urn Cannabinoid Scrn Not Detected (NotDetected)
[2023-05-02 18:45] VITALS: BP 127/75; PULSE 63; RESP 20; TEMP 97.7
== END 2023-05-02 12:22 | disposition home or self-care (01) ==
LOC: EC 03:36
DX: F39 Unspecified mood [affective] disorder (principal); I10 Essential (primary) hypertension; E07.9 Disorder of thyroid, unspecified; F32.A Depression, unspecified; Z79.899 Other long term (current) drug therapy; Z79.82 Long term (current) use of aspirin; Z88.5 Allergy status to narcotic agent; Z88.6 Allergy status to analgesic agent; Z88.8 Allergy status to other drugs, medicaments and biological substances; Z79.890 Hormone replacement therapy
CPT/HCPCS: 36415; 93005; 80053; 83735; 84100; 84484; 85025; 85610; 85730; 81001; 80306; 80143; 80179; 99285; G0480; 80320

== ENCOUNTER 2023-07-16 18:17 | Inpatient (IN) | payer MEDICARE ==
[2023-07-16] MEDS ORDERED: ACETAMINOPHEN TAB 325 MG TAB PO PRN (18:26)
[2023-07-16] MEDS ORDERED: MAG HYDROX/AL HYDROX/SIMETH 30 ML CUP PO PRN (18:26)
[2023-07-16] MEDS ORDERED: MAGNESIUM HYDROXIDE 2,400 MG/30 ML CUP PO PRN (18:26)
[2023-07-16 19:29] VITALS: RESP 20
[2023-07-16] MEDS: risperiDONE 0.25 MG TAB PO SCH (21:00)
[2023-07-16] MEDS: CEFDINIR 300 MG CAP PO SCH (21:00)
[2023-07-17 05:43] VITALS: TEMP 97.2
[2023-07-17] MEDS: LEVOTHYROXINE 100 MCG TAB PO SCH (05:52)
[2023-07-17] MEDS: risperiDONE 0.25 MG TAB PO SCH ×2 (08:41→21:26)
[2023-07-17] MEDS: OXYBUTYNIN 10 MG TAB.ER.24 PO SCH (08:41)
[2023-07-17] MEDS: ASPIRIN 81 MG PO SCH (08:41)
[2023-07-17] MEDS: DONEPEZIL 5 MG TAB PO SCH (08:41)
[2023-07-17] MEDS: PANTOPRAZOLE 40 MG TABLET PO SCH (08:41)
[2023-07-17] MEDS: SERTRALINE 50 MG TAB PO SCH (08:41)
[2023-07-17] MEDS: CEFDINIR 300 MG CAP PO SCH ×2 (08:42→21:26)
[2023-07-17] MEDS: amLODIPine 2.5 MG TAB PO SCH (08:58)
--- NOTE | 2023-07-17 13:01 | P.HP ---
Psychiatric H&P - . H&P Date: 07/17/23 History & Physical: Allergies Allergy/AdvReac Type Severity Reaction Status Date / Time clindamycin Allergy Rash/Hives Verified 07/16/23 08:30 atorvastatin calcium AdvReac LEG CRAMPS Verified 07/16/23 08:30 [From Lipitor] morphine AdvReac Nausea & Verified 07/16/23 08:30 Vomiting Vital Signs Temp 97.2 F L 07/17/23 05:39 Pulse 75 07/17/23 05:39 Resp 20 07/16/23 19:24 BP 94/50 07/17/23 05:39 Pulse Ox FiO2 Intake & Output 07/16/23 07/17/23 07/17/23 18:59 06:59 18:59 Weight 45.389 kg 45.389 kg 07/17/23 12:48 This is a psychiatric assessment on Celeste Thompson who is a 78-year-old female and was the seen in a psychiatric assessment yesterday and felt to be in need of more intensive psychiatric care Patient has started to have visual hallucinations where she had seen in a man and woman behind her window on the ledge and that they were trying to get in the house Patient had been very agitated and confused disorientated and stated that she ended up calling for help Further details are discussed in detail in my consultation note from yesterday please refer to the notes for further details Patient was extremely emotionally labile agitated and restless anxious and frustrated and depressed It was felt that the patient needs further inpatient care for her safety support and treatment and to be brought to the psychiatric unit for further evaluation and treatment. Past history personal social history: Patient is retired and currently lives in a residential facility independently It's unclear if the patient is supervised and she stated that she pulled the lever to get some help Patient also has a daughter and a son-in-law who is a police manager Patient was unable to recall her previous employment when interviewed Mental status examination: General Appearance: Patient appears to be stated age is alert, directable, and cooperative. Behavior: Patient is calmly seated without any agitated behavior. Speech: Patient's speech is fluent and nonpressured. Mood/Affect: Mood is flat, affect is congruent and blunted. Suicidality/Homicidality: Patient reports no suicidal or homicidal ideation, intention, and/or plan at this time Perceptions: Patient denies any visual hallucinations and denies any auditory hallucinations Though content/process: thought process is linear and goal-directed. Patient remains confused about her experience and feels that it really did happen Intermittent visual hallucinations? 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 -Medications: As started the patient on Risperdal 0.25 mg twice a day to start within titrated to response Have discussed effects and side effects of the medications with the patient which she was able to understand -Ativan and Haldol PRN for agitation/aggression -SW on board for discharge planning. Encourage patient to participate in groups to work on coping skills. Continue safety precautions all the patient has not shown any signs of any aggression or impulsive acting out Patient will also participate in on the andrews activities individual milieu group OT RT PT and pharmacotherapy Darrell Cash M.D.
--- NOTE | 2023-07-17 16:36 | P.MDCNMH ---
History of Present Illness H&P Date: 07/17/23 This is a very pleasant 78-year-old female who was recently on the medical unit for increased confusion with altered mental status and concerns for urinary tract infection. Patient apparently was hallucinating and seeing people and things that were occurring that were not really happening and patient had gotten very agitated and confused and called for help and was brought to the emergency department. Urinalysis showed scant amount of white blood cells and patient did report symptoms of having urgency and frequency the last few weeks and was started on ceftriaxone having improvements in symptoms. Patient to continue on Cefdinir for 3 days to complete the course. Patient was evaluated by psychiatry recommending transfer to psychiatric unit for continued psychiatric evaluation and further care. Patient was voluntary admitted to [facility]. On exam patient denies any hallucinations and reports feeling well and has been compliant with medications. Patient denies any abdominal pain or further burning or frequency with urination. Patient reports has been eating with no reported nausea or vomiting. Review Of Systems: Constitutional: No fever, no chills, no night sweats. No weight change. No weakness, fatigue or lethargy. No daytime sleepiness. EENT: No headache. No blurred vision or double vision, no loss of vision. No loss of Hearing, no ringing in the ears, no dizziness. No nasal drainage or congestion. No epistaxis. No sore throat. Lungs: No shortness of breath, cough, no sputum production. No wheezing. Cardiovascular: No chest pain, no lower extremity edema. No palpitations. No paroxysmal nocturnal dyspnea. No orthopnea. No lightheadedness or dizziness. No syncopal episodes. Abdominal: No abdominal pain. No nausea, vomiting. No diarrhea. No constipation. No bloody or tarry stools.. No loss of appetite. Genitourinary: No dysuria, increased frequency, urgency. No urinary retention. Musculoskeletal: No myalgias. No muscle weakness, no gait dysfunction, no frequent falls. No back pain. No neck pain. Integumentary: No wounds, no lesions. No rash or pruritus. No unusual bruising. No change in hair or nails. Neurologic: No aphasia. No facial droop. No change in mentation. No head injury. No headache. No paralysis. No paresthesia. Psychiatric: No depression. No anxiety. No mood swings. Endocrine: No abnormal blood sugars. No weight change. No excessive sweating or thirst. No cold intolerance. PHYSICAL EXAMINATION: GENERAL: The patient is alert and oriented x3, thin built, Well developed, elderly appearing HEENT: Pupils are round and equally reacting to light. EOMI. no scleral icterus. No conjunctival pallor. Normocephalic, atraumatic. No pharyngeal erythema. No thyromegaly. CARDIOVASCULAR: S1 and S2 muffled PULMONARY: Clear to auscultation with no wheezing or rhonchi noted. ABDOMEN: soft. Nontender on exam. Thin. non-distended, normoactive bowel sounds. No palpable organomegaly. MUSCULOSKELETAL: No joint swelling or deformity. EXTREMITIES: No cyanosis, clubbing, or pedal edema. Mild bilateral lower ext remity swelling around the ankles noted NEUROLOGICAL: Gross neurological examination did not reveal any focal deficits. SKIN: No rashes. Assessment: Visual hallucinations Anxiety Hyperlipidemia GERD Hypertension Osteoarthritis History of dementia History of thyroid disorder Depression Acute urinary tract infection with frequency and urgency, just started on antibiotics on 07/16/2023, urine cultures were negative Full code Plan: Patient has been admitted voluntarily to [facility]. for further psychiatric evaluation Medications adjusted and being started by psychiatry Patient continue on antibiotics for 3 days to complete a course Encourage the patient to attend group therapy sessions Patient to follow-up with primary care provider on discharge Follow up on urine culture was negative from yesterday Thank you kindly for this consultation The impression and plan of care has been dictated by Yessi Rogers, nurse practitioner as directed. Dr. Sedrick MD I have performed a history and examination and MDM of this patient, discussed the same with the dictator, and agree with the dictator's assessment and plan as written ,documented as a scribe. Based on total visit time, I have performed more than 50% of the visit. Any additional findings or plans will be noted. Past Medical History Past Medical History: Chest Pain / Angina, GERD/Reflux, Hyperlipidemia, Hypertension, Osteoarthritis (OA), Skin Disorder, Thyroid Disorder Additional Past Medical History / Comment(s): Hx. pancreatitis with pancreatic CYSTS. PSORIASISlt ankle. angina, vitamin D deficiency, degenerative disc disease of the CERIVAL AND lumbar spine unable to lift anything over 10# or stand for long periods of time. Diverticulitis. Bronchits. UTERINE fibroids. Falls. Hiatal hernia History of Any Multi-Drug Resistant Organisms: None Reported, MRSA, Other MDRO Date of last positivie culture/infection: 2013 in [place] [facility] MDRO Source:: spider bite on lt leg Past Surgical History: Adenoidectomy, Back Surgery, Bowel Resection, Cholecystectomy, Hernia Repair, Hysterectomy, Orthopedic Surgery, Tonsillectomy Additional Past Surgical History / Comment(s): Anterior cervical discectomy with fusion(toal 3 sx has wire in neck) , lumbar fusion 3-screws in back. R hip surgery(NOT A HIP REPLACEMENT). Left 1st rib removal r/t thoracic outlet syndrome. Hiatal hernia surg. Bilateral cataract surgery with lens implant Lt elbow tendon release. Sx on gums d/t infection. Dental implant Past Anesthesia/Blood Transfusion Reactions: No Reported Reaction Additional Past Anesthesia/Blood Transfusion Reaction / Comment(s): blood transfusion in 1969-no reaction Past Psychological History: Depression Additional Psychological History / Comment(s): lives alone, senior center, cane at times used Smoking Status: Never smoker Past Alcohol Use History: None Reported Past Drug Use History: None Reported - Past Family History Father History Unknown: Yes Family Medical History: Coronary Artery Disease (CAD) Additional Family Medical History / Comment(s): aortic aneurysm at 72 Mother Family Medical History: CVA/TIA Brother(s) Family Medical History: No Reported History Sister(s) Family Medical History: Vascular Disorder Son(s) Family Medical History: No Reported History Daughter(s) Family Medical History: Unable to Obtain Medications and Allergies Home Medications Medication Instructions Recorded Confirmed Type amLODIPine [Norvasc] 2.5 mg PO DAILY 05/17/21 07/16/23 History Aspirin EC [Ecotrin Low Dose] 81 mg PO DAILY 03/13/23 07/16/23 History Donepezil [Aricept] 5 mg PO DAILY 03/13/23 07/16/23 History Levothyroxine Sodium [Synthroid] 100 mcg PO DAILY 03/13/23 07/16/23 History Oxybutynin Chloride [oxyBUTYnin 10 mg PO DAILY 03/13/23 07/16/23 History chloride ER] Sertraline [Zoloft] 50 mg PO DAILY 03/13/23 07/16/23 History Cefdinir 300 mg PO Q12HR 3 Days #6 cap 07/16/23 07/16/23 Rx Pantoprazole Sodium [Protonix] 40 mg PO DAILY 07/16/23 07/16/23 History Rosuvastatin Calcium 5 mg PO DIRECTED 07/16/23 07/16/23 History Allergies Allergy/AdvReac Type Severity Reaction Status Date / Time clindamycin Allergy Rash/Hives Verified 07/16/23 08:30 atorvastatin calcium AdvReac LEG CRAMPS Verified 07/16/23 08:30 [From Lipitor] morphine AdvReac Nausea & Verified 07/16/23 08:30 Vomiting Physical Exam Vitals: Vital Signs Temp Pulse Pulse Resp BP 07/17/23 05:39 97.2 F L 75 94/50 07/16/23 19:24 97.8 F 56 L 56 L 20 141/67 Intake and Output 07/16/23 07/17/23 07/17/23 22:59 06:59 14:59 Other: Weight 45.389 kg Cranial Nerve Examination - Cranial Nerves Cranial Nerve I- Olfactory: Intact Cranial Nerve II- Optic: Intact Cranial Nerve III- Oculomotor: Intact Cranial Nerve IV- Trochlear: Intact Cranial Nerve V- Trigeminal: Intact Cranial Nerve - Abducens: Intact Cranial Nerve VII- Facial: Intact Cranial Nerve VIII- Auditory: Intact Cranial Nerve IX- Glossopharyngeal: Intact Cranial Nerve X- Vagus: Intact Cranial Nerve XI- Accessory: Intact Cranial Nerve XII- Hypoglossal: Intact Assessment and Plan Time with Patient: Less than 30
[2023-07-17] MEDS ORDERED: NON FORMULARY DRUG (Rosuvastatin Calcium [Rosuvastatin Calcium] 5 MG Tablet) PO SCH (21:00)
[2023-07-18 02:36] LABS: Chol/HDL Ratio 2.37 Ratio; LDL Cholesterol,Calculated 81.5 mg/dL (0.0-131.0)
[2023-07-18] MEDS: LEVOTHYROXINE 100 MCG TAB PO SCH (06:11)
[2023-07-18] MEDS: ASPIRIN 81 MG PO SCH (08:43)
[2023-07-18] MEDS: SERTRALINE 50 MG TAB PO SCH (08:43)
[2023-07-18] MEDS: PANTOPRAZOLE 40 MG TABLET PO SCH (08:43)
[2023-07-18] MEDS: CEFDINIR 300 MG CAP PO SCH (08:44)
[2023-07-18] MEDS: amLODIPine 2.5 MG TAB PO SCH (08:44)
[2023-07-18] MEDS: risperiDONE 0.25 MG TAB PO SCH (08:44)
[2023-07-18] MEDS: OXYBUTYNIN 10 MG TAB.ER.24 PO SCH (08:44)
[2023-07-18] MEDS: DONEPEZIL 5 MG TAB PO SCH (08:44)
[2023-07-18 09:13] VITALS: BP 117/59; PULSE 72
--- NOTE | 2023-07-18 11:02 | P.PN ---
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 Discharge diagnosis: Same as above Patient Name: Celeste Grijalva Date of : 1945 Patient Status: Inpatient Attending Provider: Chaz Chavez Date: 07/18/23 The patient was seen for follow-up today Patient is pleasant and fairly interactive Patient denies any thoughts of wanting to hurt self or others She denies experiencing any auditory or visual hallucinations She says that she slept well She denies any racing thoughts She also requested if she could be discharged home since she has a friend who is turning 80 and that they are having a celebration at the worship She said that this is her best friend from the third grade She said that she will follow up with her treatment and recommendations with her PCP or any assigned therapist or psychiatrist Mental status examination: General Appearance: Patient appears to be stated age is alert, directable, and cooperative. Behavior: Patient is calmly seated without any agitated behavior. Speech: Patient's speech is fluent and nonpressured. Mood/Affect: Mood is flat, affect is congruent and blunted. Suicidality/Homicidality: Patient reports no suicidal or homicidal ideation, intention, and/or plan at this time Perceptions: Patient denies any visual hallucinations and denies any auditory hallucinations Though content/process: thought process is linear and goal-directed. Patient remains confused about her experience and feels that it really did happen Intermittent visual hallucinations? 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 -Medications: As started the patient on Risperdal 0.25 mg twice a day Patient has tolerated the Risperdal fairly well without any side effects Patient has not experienced any psychotic events since her hospitalization Patient has not exhibited any behavior dangerous to herself or others Have discussed effects and side effects of the medications with the patient which she was able to understand -Ativan and Haldol PRN for agitation/aggression Patient at this time appears to be where she could be treated as an outpatient for ongoing supervision and support Patient is advised to follow-up with her PCP or a local psychiatrist for outpatient follow-up and care Patient is made aware of EPS tremors tardive dyskinesia We will discharge him today with outpatient follow-up as directed Darrellvee Cash M.D. Objective - Vital Signs Vital signs: Vital Signs Temp 97.2 F L 07/17/23 05:39 Pulse 72 07/18/23 09:05 Resp 20 07/16/23 19:24 BP 117/59 07/18/23 09:05 Pulse Ox FiO2 - Labs Labs: Abnormal Lab Results - Last 24 Hours (Table) 07/17/23 Range/Units 13:01 HDL Cholesterol 79.30 H (40.00-60.00) mg/dL TSH <0.015 L (0.465-4.680) mIU/L
--- NOTE | 2023-07-18 11:04 | P.DS ---
Providers Date of admission: 07/16/23 18:56 Attending physician: Chaz Chavez MD Consults: 07/16/23 18:26 Consult Physician Routine Consulting Provider: Gerardo Acosta Consult Reason/Comments: H and P Do you want consulting provider notified?: Yes Primary care physician: Stated None - Discharge Diagnosis(es) (1) Hallucinations Current Visit: No Status: Resolved Hospital Course: Attending Provider: Chaz Chavez Date: 07/18/23 The patient was seen for follow-up today Patient is pleasant and fairly interactive Patient denies any thoughts of wanting to hurt self or others She denies experiencing any auditory or visual hallucinations She says that she slept well She denies any racing thoughts She also requested if she could be discharged home since she has a friend who is turning 80 and that they are having a celebration at the adventism She said that this is her best friend from the third grade She said that she will follow up with her treatment and recommendations with her PCP or any assigned therapist or psychiatrist Mental status examination: General Appearance: Patient appears to be stated age is alert, directable, and cooperative. Behavior: Patient is calmly seated without any agitated behavior. Speech: Patient's speech is fluent and nonpressured. Mood/Affect: Mood is flat, affect is congruent and blunted. Suicidality/Homicidality: Patient reports no suicidal or homicidal ideation, intention, and/or plan at this time Perceptions: Patient denies any visual hallucinations and denies any auditory hallucinations Though content/process: thought process is linear and goal-directed. Patient remains confused about her experience and feels that it really did happen Intermittent visual hallucinations? Memory and concentration: AOX3, impaired Judgment and insight: Impaired In continues to minimize his substance use issues Assessment Adjustment disorder with the mixed emotional features Mood disorder unspecified Anxiety disorder unspecified Major neurocognitive disorder with the behavioral disturbances Discharge diagnosis: Justman disorder with mixed emotional features resolved Mood disorder unspecified Anxiety disorder unspecified Major neurocognitive disorder with the behavioral disturbances Plan: PLAN: -Patient is admitted under voluntary status to [facility] for stabilization of psychiatric symptoms and safety. -Medications: As started the patient on Risperdal 0.25 mg twice a day Patient has tolerated the Risperdal fairly well without any side effects Patient has not experienced any psychotic events since her hospitalization Patient has not exhibited any behavior dangerous to herself or others Have discussed effects and side effects of the medications with the patient which she was able to understand -Ativan and Haldol PRN for agitation/aggression Patient at this time appears to be where she could be treated as an outpatient for ongoing supervision and support Patient is advised to follow-up with her PCP or a local psychiatrist for outpatient follow-up and care Patient is made aware of EPS tremors tardive dyskinesia We will discharge him today with outpatient follow-up as directed Darrell Cash M.D. Plan - Discharge Summary Discharge Rx Participant: No New Discharge Prescriptions: No Action Oxybutynin Chloride [oxyBUTYnin chloride ER] 10 mg PO DAILY Donepezil [Aricept] 5 mg PO DAILY Aspirin EC [Ecotrin Low Dose] 81 mg PO DAILY Cefdinir 300 mg PO Q12HR 3 Days #6 cap amLODIPine [Norvasc] 2.5 mg PO DAILY Sertraline [Zoloft] 50 mg PO DAILY Levothyroxine Sodium [Synthroid] 100 mcg PO DAILY Rosuvastatin Calcium 5 mg PO DIRECTED Pantoprazole Sodium [Protonix] 40 mg PO DAILY Discharge Medication List amLODIPine [Norvasc] 2.5 mg PO DAILY 05/17/21 [History] Aspirin EC [Ecotrin Low Dose] 81 mg PO DAILY 03/13/23 [History] Donepezil [Aricept] 5 mg PO DAILY 03/13/23 [History] Levothyroxine Sodium [Synthroid] 100 mcg PO DAILY 03/13/23 [History] Oxybutynin Chloride [oxyBUTYnin chloride ER] 10 mg PO DAILY 03/13/23 [History] Sertraline [Zoloft] 50 mg PO DAILY 03/13/23 [History] Cefdinir 300 mg PO Q12HR 3 Days #6 cap 07/16/23 [Rx] Pantoprazole Sodium [Protonix] 40 mg PO DAILY 07/16/23 [History] Rosuvastatin Calcium 5 mg PO DIRECTED 07/16/23 [History] Follow up Appointment(s)/Referral(s): Roxanna Lozano MD [STAFF PHYSICIAN] - 1 Week Patient Instructions/Handouts: Mood Disorders (DC), Anxiety (GEN) Activity/Diet/Wound Care/Special Instructions: Avoid the use of street drugs and alcohol. Take all medications as prescribed. When you are in need of refills on your medications, please contact your medical provider and/or outpatient psychiatrist/provider to have this done. Please go to your scheduled outpatient appointment for aftercare treatment. If symptoms return or become worse, call the crisis line at and/or go to the nearest emergency room for evaluation. National Suicide Hotline 364.
== END 2023-07-18 16:30 | disposition home or self-care (01) | DRG 882 ==
LOC: 3MHU 18:56
PROVIDERS: ADMIT Psychiatry & Neurology Psychiatry; ATTEND Psychiatry & Neurology Psychiatry
DX: F43.22 Adjustment disorder with anxiety (principal); F03.94 Unspecified dementia, unspecified severity, with anxiety; F03.93 Unspecified dementia, unspecified severity, with mood disturbance; F03.92 Unspecified dementia, unspecified severity, with psychotic disturbance; F91.9 Conduct disorder, unspecified
CPT/HCPCS: 80061; 83036; 84443

== ENCOUNTER 2023-08-20 17:40 | Emergency (ER) | payer MEDICARE ==
--- NOTE | 2023-08-20 17:49 | ED ---
Fall HPI - General Source: patient, EMS, RN notes reviewed Mode of arrival: EMS <Onelia Knowles - Last Filed: 08/20/23 19:21> <Merline Aguirre - Last Filed: 08/20/23 20:03> - General Stated Complaint: Fall Time Seen by Provider: 08/20/23 17:41 - History of Present Illness Initial Comments: Patient is a 78-year-old female presenting to the ER via EMS with chief compla int of a fall. Patient states she was walking out of an elevator when she tripped and fell hitting her head on the wall of the elevator. Patient states she also got really tightly onto the handlebar and the elevator. Patient is complaining of bilateral hand pain rating at a 5 out of 10. Patient denies loss of consciousness, blood thinner use, nausea vomiting, any other injuries. (Onelia Paz) - Related Data Home Medications Medication Instructions Recorded Confirmed amLODIPine [Norvasc] 2.5 mg PO DAILY 05/17/21 07/16/23 Aspirin EC [Ecotrin Low Dose] 81 mg PO DAILY 03/13/23 07/16/23 Donepezil [Aricept] 5 mg PO DAILY 03/13/23 07/16/23 Levothyroxine Sodium [Synthroid] 100 mcg PO DAILY 03/13/23 07/16/23 Oxybutynin Chloride [oxyBUTYnin 10 mg PO DAILY 03/13/23 07/16/23 chloride ER] Sertraline [Zoloft] 50 mg PO DAILY 03/13/23 07/16/23 Pantoprazole Sodium [Protonix] 40 mg PO DAILY 07/16/23 07/16/23 Rosuvastatin Calcium 5 mg PO DIRECTED 07/16/23 07/16/23 Previous Rx's Medication Instructions Recorded Cefdinir 300 mg PO Q12HR 3 Days #6 cap 07/16/23 risperiDONE [RisperDAL] 0.25 mg PO BID 30 Days #60 tab 07/18/23 Allergies Allergy/AdvReac Type Severity Reaction Status Date / Time clindamycin Allergy Rash/Hives Verified 08/20/23 17:46 atorvastatin calcium AdvReac LEG CRAMPS Verified 08/20/23 17:46 [From Lipitor] morphine AdvReac Nausea & Verified 11/16/23 17:46 Vomiting Review of Systems ROS Other: All systems not noted in ROS Statement are negative. <Onelia Knowles - Last Filed: 08/20/23 19:21> ROS Other: All systems not noted in ROS Statement are negative. <Merline Aguirre - Last Filed: 08/20/23 20:03> ROS Statement: Those systems with pertinent positive or pertinent negative responses have been documented in the HPI. Past Medical History Past Medical History: Chest Pain / Angina, GERD/Reflux, Hyperlipidemia, Hypertension, Osteoarthritis (OA), Skin Disorder, Thyroid Disorder Additional Past Medical History / Comment(s): Hx. pancreatitis with pancreatic CYSTS. PSORIASISlt ankle. angina, vitamin D deficiency, degenerative disc disease of the CERIVAL AND lumbar spine unable to lift anything over 10# or stand for long periods of time. Diverticulitis. Bronchits. UTERINE fibroids. Falls. Hiatal hernia History of Any Multi-Drug Resistant Organisms: None Reported, MRSA, Other MDRO Date of last positivie culture/infection: 2013 in [facility] MDRO Source:: spider bite on lt leg Past Surgical History: Adenoidectomy, Back Surgery, Bowel Resection, Cholecystectomy, Hernia Repair, Hysterectomy, Orthopedic Surgery, Tonsillectomy Additional Past Surgical History / Comment(s): Anterior cervical discectomy with fusion(toal 3 sx has wire in neck) , lumbar fusion 3-screws in back. R hip surgery(NOT A HIP REPLACEMENT). Left 1st rib removal r/t thoracic outlet syndrome. Hiatal hernia surg. Bilateral cataract surgery with lens implant Lt elbow tendon release. Sx on gums d/t infection. Dental implant Past Anesthesia/Blood Transfusion Reactions: No Reported Reaction Additional Past Anesthesia/Blood Transfusion Reaction / Comment(s): blood transfusion in 1969-no reaction Past Psychological History: Depression Smoking Status: Never smoker Past Alcohol Use History: None Reported Past Drug Use History: None Reported - Past Family History Father History Unknown: Yes Family Medical History: Coronary Artery Disease (CAD) Additional Family Medical History / Comment(s): aortic aneurysm at 72 Mother Family Medical History: CVA/TIA Brother(s) Family Medical History: No Reported History Sister(s) Family Medical History: Vascular Disorder Son(s) Family Medical History: No Reported History Daughter(s) Family Medical History: Unable to Obtain <Onelia Knowles - Last Filed: 08/20/23 19:21> General Exam Limitations: no limitations General appearance: alert, in no apparent distress Head exam: Present: atraumatic, normocephalic, normal inspection Eye exam: Present: normal appearance, PERRL, EOMI. Absent: scleral icterus, conjunctival injection, periorbital swelling ENT exam: Present: normal exam, mucous membranes moist Neck exam: Present: normal inspection. Absent: tenderness, meningismus, lymphadenopathy Respiratory exam: Present: normal lung sounds bilaterally. Absent: respiratory distress, wheezes, rales, rhonchi, stridor Cardiovascular Exam: Present: regular rate, normal rhythm, normal heart sounds. Absent: systolic murmur, diastolic murmur, rubs, gallop, clicks Extremities exam: Present: normal inspection, full ROM, normal capillary refill, other (No tenderness to any joint spaces. 2+ bilateral radial pulse.). Absent: tenderness, pedal edema, joint swelling, calf tenderness Neurological exam: Present: alert, oriented X3, CN II-XII intact Psychiatric exam: Present: normal affect, normal mood Skin exam: Present: warm, dry, intact, normal color. Absent: rash <Onelia Knowles - Last Filed: 08/20/23 19:21> Course Vital Signs 08/20/23 08/20/23 08/20/23 17:42 18:03 19:20 Temperature 97.7 F 97.6 F Pulse Rate 50 L 56 L 53 L Respiratory 18 18 18 Rate Blood Pressure 138/48 136/64 136/53 O2 Sat by Pulse 97 98 98 Oximetry Medical Decision Making - Radiology Data Radiology results: report reviewed, image reviewed <Onelia Knowles - Last Filed: 08/20/23 19:21> <Merline Aguirre - Last Filed: 08/20/23 20:03> - Medical Decision Making Was pt. sent in by a medical professional or institution (MATTHIEU Flanagan, FRONT END TECHNICIAN, urgent care, hospital, or jail...) When possible be specific @ -No Did you speak to anyone other than the patient for history (EMS, parent, family, police, friend...)? What history was obtained from this source @ -EMS Did you review nursing and triage notes (agree or disagree)? Why? @ -I reviewed and agree with nursing and triage notes Were old charts reviewed (outside hosp., previous admission, EMS record, old EKG, old radiological studies, urgent care reports/EKG's, jail records)? Report findings @ -No old charts were reviewed Differential Diagnosis (chest pain, altered mental status, abdominal pain women, abdominal pain men, vaginal bleeding, weakness, fever, dyspnea, syncope, headache, dizziness, GI bleed, back pain, seizure, CVA, palpatations, mental health, musculoskeletal)? @ -Differential Musculoskeletal: Muscular strain, contusion, ligament sprain, fracture, arthritis, septic arthritis, bursitis, cellulitis, muscle spasm, nerve compression, DVT, arterial occlusion, herpes zoster, electrolyte abnormality, tumor.... This is not meant to be in all inclusive list EKG interpreted by me (3pts min.). @ -None X-rays interpreted by me (1pt min.). @ -None done CT interpreted by me (1pt min.). @ -CT of brain and C-spine shows no acute processes. No intracranial hemorrhage/mass effect, fractures or dislocations are present. U/S interpreted by me (1pt. min.). @ -None done What testing was considered but not performed or refused? (CT, X-rays, U/S, labs)? Why? @ -None What meds were considered but not given or refused? Why? @ -I offered pain medication to patient but she refused. Did you discuss the management of the patient with other professionals (professionals i.e. , PA, FRONT END TECHNICIAN, lab, RT, psych nurse, foster care social worker, weapons mechanic, teacher, safety security officer, dependency case manager)? Give summary @ -No Was smoking cessation discussed for >3mins.? @ -No Was critical care preformed (if so, how long)? @ -No Were there social determinants of health that impacted care today? How? (Homelessness, low income, unemployed, alcoholism, drug addiction, transportation, low edu. Level, literacy, decrease access to med. care, correction, rehab)? @ -No Was there de-escalation of care discussed even if they declined (Discuss DNR or withdrawal of care, Hospice)? DNR status @ -No What co-morbidities impacted this encounter? (DM, HTN, Smoking, COPD, CAD, Can cer, CVA, ARF, Chemo, Hep., AIDS, mental health diagnosis, sleep apnea, morbid obesity)? @ -None Was patient admitted / discharged? Hospital course, mention meds given and route, prescriptions, significant lab abnormalities, going to OR and other pertinent info. @ -Discharge. CT brain C-spine showed no acute processes. No intracranial hem orrhage/mass effect, fractures or dislocations present. Patient will be discharged in stable condition with follow-up to PCP. I discussed return parameters with patient. Patient expressed understanding and agreement with care plan. Undiagnosed new problem with uncertain prognosis? @ -No Drug Therapy requiring intensive monitoring for toxicity (Heparin, Nitro, Insulin, Cardizem)? @ -No Were any procedures done? @ -No Diagnosis/symptom? @ -Head injury Acute, or Chronic, or Acute on Chronic? @ -Acute Uncomplicated (without systemic symptoms) or Complicated (systemic symptoms)? @ -Uncomplicated Side effects of treatment? @ -No Exacerbation, Progression, or Severe Exacerbation? @ -No Poses a threat to life or bodily function? How? (Chest pain, [place], [place], pneumonia, PE, COPD, DKA, ARF, appy, cholecystitis, CVA, Diverticulitis, Homicidal, Suicidal, threat to staff... and all critical care pts) @ -No (Onelia Knowles) She signed out to me pending CT results. Discussed results with patient. Patient stable at time of discharge. (Merline Aguirre) Disposition <Onelia Knowles - Last Filed: 08/20/23 19:21> Is patient prescribed a controlled substance at d/c from ED?: No <Merline Aguirre - Last Filed: 08/20/23 20:03> Clinical Impression: Fall Disposition: HOME SELF-CARE Condition: Stable Instructions (If sedation given, give patient instructions): Fall Prevention for Older Adults (ED) Additional Instructions: Please return to the Emergency Department if symptoms worsen or any other concerns. Referrals: Liset Turner MD [Primary Care Provider] - 1-2 days
[2023-08-20 18:04] VITALS: TEMP 97.6
--- NOTE | 2023-08-20 19:49 | CT ---
EXAMINATION TYPE: CT brain cspine wo con DATE OF EXAM: 08/20/2023 COMPARISON: 07/15/2023 HISTORY: Pt c/o fall in elevator. Pt hit by elevator door to left side of face and head. Pt denies LO C or thinners. Pt c/o head and bilat hands pain. Pt denies neck pain. CT DLP: 1234.4 mGycm. Automated Exposure Control for Dose Reduction was Utilized. TECHNIQUE: CT scan of the head and cervical spine are performed without contrast. FINDINGS: There is no acute intracranial hemorrhage, mass effect, or midline shift identified. No def inite new attenuation defect. The ventricles and sulci are within normal limits in size. No skull fra cture. Orbits are intact. The paranasal sinuses, middle ear cavities, and mastoid sinus air cells are clear. Cervical spine is visualized in its entirety from C1 through upper thoracic levels and demonstrates s atisfactory alignment without evidence of acute fracture or dislocation. Prevertebral soft tissue ap pears within normal limits. The C1-C2 articulation is unremarkable. IMPRESSION: 1. There is no acute fracture or dislocation evident in the cervical spine. 2. No acute intracranial hemorrhage, mass effect, or midline shift is seen.
[2023-08-20 20:41] VITALS: BP 152/72; PULSE 55; RESP 19
== END 2023-08-20 20:19 | disposition home or self-care (01) ==
LOC: EC 17:40
DX: M79.641 Pain in right hand (principal); M79.642 Pain in left hand; K21.9 Gastro-esophageal reflux disease without esophagitis; E78.5 Hyperlipidemia, unspecified; I10 Essential (primary) hypertension; E07.9 Disorder of thyroid, unspecified; Z79.899 Other long term (current) drug therapy; Z79.890 Hormone replacement therapy; Z88.5 Allergy status to narcotic agent; Z88.8 Allergy status to other drugs, medicaments and biological substances; Z88.1 Allergy status to other antibiotic agents; W01.198A Fall on same level from slipping, tripping and stumbling with subsequent striking against other object, initial encounter
CPT/HCPCS: 70450; 72125; 99285

== ENCOUNTER 2023-09-03 09:54 | Inpatient (IN) | payer MEDICARE ==
--- NOTE | 2023-09-03 10:59 | ED ---
Abdominal Pain HPI - General Source: patient, RN notes reviewed Mode of arrival: ambulatory Limitations: no limitations <Gael Felix - Last Filed: 09/03/23 10:58> <Evelyn Reyes - Last Filed: 09/05/23 00:37> - General Chief Complaint: Abdominal Pain Stated Complaint: Abd Pain Time Seen by Provider: 09/03/23 10:58 - History of Present Illness Initial Comments: 78-year-old female presents emergency Department with chief complaint of abdominal pain. Patient states it started last night states that she had nausea vomiting no history of diverticulitis no dysuria (Gael Felix) 78-year-old female with past medical history of pancreatitis, hypertension, hyperlipidemia, small bowel obstructions who presents to the emergency department with nausea and vomiting. States that she vomited last night and she has had lower abdominal pain today. Denies any sick contacts. Denies black or bloody stools. No diarrhea or constipation. She was recently treated with Keflex for a urinary tract infection. States that she finished her antibiotics on Thursday. Patient is a poor historian due to history of dementia. She denies any fevers. No vomiting today. 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 (Evelyn Reyes) - Related Data Home Medications Medication Instructions Recorded Confirmed amLODIPine [Norvasc] 2.5 mg PO DAILY 05/17/21 09/03/23 Aspirin EC [Ecotrin Low Dose] 81 mg PO DAILY 03/13/23 09/03/23 Donepezil [Aricept] 5 mg PO DAILY 03/13/23 09/03/23 Levothyroxine Sodium [Synthroid] 100 mcg PO DAILY 03/13/23 09/03/23 Oxybutynin Chloride [oxyBUTYnin 10 mg PO DAILY 03/13/23 09/03/23 chloride ER] Sertraline [Zoloft] 50 mg PO DAILY 03/13/23 09/03/23 Pantoprazole Sodium [Protonix] 40 mg PO DAILY 07/16/23 09/03/23 Rosuvastatin Calcium 5 mg PO DIRECTED 07/16/23 09/03/23 Previous Rx's Medication Instructions Recorded risperiDONE [RisperDAL] 0.25 mg PO BID 30 Days #60 tab 07/18/23 Allergies Allergy/AdvReac Type Severity Reaction Status Date / Time clindamycin Allergy Rash/Hives Verified 09/03/23 14:54 atorvastatin calcium AdvReac LEG CRAMPS Verified 09/03/23 14:54 [From Lipitor] morphine AdvReac Nausea & Verified 09/03/23 14:54 Vomiting Review of Systems ROS Other: All systems not noted in ROS Statement are negative. <Gael Felix - Last Filed: 09/03/23 10:58> ROS Other: All systems not noted in ROS Statement are negative. <Evelyn Reyes - Last Filed: 09/05/23 00:37> ROS Statement: Those systems with pertinent positive or pertinent negative responses have been documented in the HPI. Past Medical History Past Medical History: Chest Pain / Angina, GERD/Reflux, Hyperlipidemia, Hypertension, Osteoarthritis (OA), Skin Disorder, Thyroid Disorder Additional Past Medical History / Comment(s): Hx. pancreatitis with pancreatic CYSTS. PSORIASISlt ankle. angina, vitamin D deficiency, degenerative disc disease of the CERIVAL AND lumbar spine unable to lift anything over 10# or stand for long periods of time. Diverticulitis. Bronchits. UTERINE fibroids. Falls. Hiatal hernia History of Any Multi-Drug Resistant Organisms: None Reported, MRSA, Other MDRO Date of last positivie culture/infection: 2013 in [place] [facility] MDRO Source:: spider bite on lt leg Past Surgical History: Adenoidectomy, Back Surgery, Bowel Resection, Cholecystectomy, Hernia Repair, Hysterectomy, Orthopedic Surgery, Tonsillectomy Additional Past Surgical History / Comment(s): Anterior cervical discectomy with fusion(toal 3 sx has wire in neck) , lumbar fusion 3-screws in back. R hip s urgery(NOT A HIP REPLACEMENT). Left 1st rib removal r/t thoracic outlet syndrome. Hiatal hernia surg. Bilateral cataract surgery with lens implant Lt elbow tendon release. Sx on gums d/t infection. Dental implant Past Anesthesia/Blood Transfusion Reactions: No Reported Reaction Additional Past Anesthesia/Blood Transfusion Reaction / Comment(s): blood transfusion in 1970-no reaction Past Psychological History: Depression Smoking Status: Never smoker Past Alcohol Use History: None Reported Past Drug Use History: None Reported - Past Family History Father History Unknown: Yes Family Medical History: Coronary Artery Disease (CAD) Additional Family Medical History / Comment(s): aortic aneurysm at 72 Mother Family Medical History: CVA/TIA Brother(s) Family Medical History: No Reported History Sister(s) Family Medical History: Vascular Disorder Son(s) Family Medical History: No Reported History Daughter(s) Family Medical History: Unable to Obtain <Gael Felix - Last Filed: 09/03/23 10:58> General Exam Limitations: no limitations <IsidroGael - Last Filed: 09/03/23 10:58> General appearance: alert, in no apparent distress Head exam: Present: atraumatic, normocephalic, normal inspection Eye exam: Present: normal appearance, PERRL, EOMI. Absent: scleral icterus, conjunctival injection, periorbital swelling ENT exam: Present: normal exam, mucous membranes moist Neck exam: Present: normal inspection. Absent: tenderness, meningismus, lymphadenopathy Respiratory exam: Present: normal lung sounds bilaterally. Absent: respiratory distress, wheezes, rales, rhonchi, stridor Cardiovascular Exam: Present: regular rate, normal rhythm, normal heart sounds. Absent: systolic murmur, diastolic murmur, rubs, gallop, clicks GI/Abdominal exam: Present: soft, tenderness (generalized), normal bowel sounds. Absent: distended, guarding, rebound, rigid Extremities exam: Present: normal inspection, full ROM, normal capillary refill. Absent: tenderness, pedal edema, joint swelling, calf tenderness Back exam: Present: normal inspection Neurological exam: Present: alert, oriented X3, CN II-XII intact Psychiatric exam: Present: normal affect, normal mood Skin exam: Present: warm, dry, intact, normal color. Absent: rash <Evelyn Reyes - Last Filed: 09/05/23 00:37> - General Exam Comments Initial Comments: Visual Physical Exam Vital signs reviewed General: Well-appearing, nontoxic, no acute distress. Head: Normocephalic, atraumatic Eyes: PERRLA, EOMI ENT: Airway patent Chest: Nonlabored breathing Skin: No visual rash, normal skin tone Neuro: Alert and oriented 3 Musculoskeletal: No gross abnormalities (Gael Felix) Course Vital Signs 09/03/23 09/03/23 09/03/23 10:13 13:35 20:00 Temperature 98.8 F 98.7 F 98.3 F Pulse Rate 94 63 Pulse Rate [ 72 Pulse Oximetery ] Respiratory 16 18 18 Rate Blood Pressure 107/60 139/71 Blood Pressure 147/57 [Right Arm Sitting] O2 Sat by Pulse 98 97 99 Oximetry 09/04/23 09/04/23 09/04/23 01:31 08:00 13:43 Temperature 97.8 F 97.4 F L 98.4 F Pulse Rate Pulse Rate [ 54 L 58 L 87 Pulse Oximetery ] Respiratory 18 14 16 Rate Blood Pressure Blood Pressure 145/57 112/92 148/59 [Right Arm Sitting] O2 Sat by Pulse 96 97 97 Oximetry Medical Decision Making <Gael Felix - Last Filed: 09/03/23 10:58> - Lab Data Result diagrams: 09/04/23 07:43 09/04/23 07:43 <Evelyn Reyes - Last Filed: 09/05/23 00:37> - Medical Decision Making I completed the quick note portion of this chart signed Gael Felix PA-C (Gael Felix) Was pt. sent in by a medical professional or institution (MATTHIEU Flanagan, TAPROOM ATTENDANT, urgent care, hospital, or long-term...) When possible be specific @ -No Did you speak to anyone other than the patient for history (EMS, parent, family, police, friend...)? What history was obtained from this source @ -Patients friend Vero Did you review nursing and triage notes (agree or disagree)? Why? @ -I reviewed and agree with nursing and triage notes Were old charts reviewed (outside hosp., previous admission, EMS record, old EKG, old radiological studies, urgent care reports/EKG's, long-term records)? Report findings @ -old charts were reviewed - patient has been admitted previously for SBO Differential Diagnosis (chest pain, altered mental status, abdominal pain women, abdominal pain men, vaginal bleeding, weakness, fever, dyspnea, syncope, headache, dizziness, GI bleed, back pain, seizure, CVA, palpatations, mental health, musculoskeletal)? @ -appendicitis, colitis, cholelithiasis, constipation EKG interpreted by me (3pts min.). @ -Not done X-rays interpreted by me (1pt min.). @ -None done CT interpreted by me (1pt min.). @ -yes, demonstrates SBO U/S interpreted by me (1pt. min.). @ -None done What testing was considered but not performed or refused? (CT, X-rays, U/S, labs)? Why? @ -None What meds were considered but not given or refused? Why? @ -None Did you discuss the management of the patient with other professionals (professionals i.e. , PA, TAPROOM ATTENDANT, lab, RT, psych nurse, hospice social worker, felt hanger, teacher, loan workout officer, rn field case manager)? Give summary @ -spoke with dr. pena Was smoking cessation discussed for >3mins.? @ -No Was critical care preformed (if so, how long)? @ -No Were there social determinants of health that impacted care today? How? (Homelessness, low income, unemployed, alcoholism, drug addiction, transportation, low edu. Level, literacy, decrease access to med. care, [facility], rehab)? @ -No Was there de-escalation of care discussed even if they declined (Discuss DNR or withdrawal of care, Hospice)? DNR status @ -No What co-morbidities impacted this encounter? (DM, HTN, Smoking, COPD, CAD, Cancer, CVA, ARF, Chemo, Hep., AIDS, mental health diagnosis, sleep apnea, morbid obesity)? @ -dementia, previous sbo Was patient admitted / discharged? Hospital course, mention meds given and route, prescriptions, significant lab abnormalities, going to OR and other pertinent info. @ -Upon arrival patient was placed into hallway 28. Thorough history and physical exam was performed. Laboratory studies are conducted in CT is performed. Patient does have small bowel obstruction. Called and spoke with Dr. Pena. He will accept admission for Dr. Camara. NG tube is ordered. Patient awaiting a bed on the floor in stable condition Undiagnosed new problem with uncertain prognosis? @ -No Drug Therapy requiring intensive monitoring for toxicity (Heparin, Nitro, Insulin, Cardizem)? @ -No Were any procedures done? @ -No Diagnosis/symptom? @ -acute abd pain, acute vomiting, acute sbo Acute, or Chronic, or Acute on Chronic? @ -acute Uncomplicated (without systemic symptoms) or Complicated (systemic symptoms)? @ -complicated Side effects of treatment? @ -No Exacerbation, Progression, or Severe Exacerbation? @ -No Poses a threat to life or bodily function? How? (Chest pain, USA, NM, pneumonia, PE, COPD, DKA, ARF, appy, cholecystitis, CVA, Diverticulitis, Homicidal, Suicidal, threat to staff... and all critical care pts) @ -yes, untreated, patient could develop ischemic bowel (Michael Reyesah Krystle) - Lab Data Lab Results 09/03/23 09/03/23 09/03/23 Range/Units 11:07 11:07 11:07 WBC 4.2 (3.8-10.6) k/uL RBC 4.52 (3.80-5.40) m/uL Hgb 13.4 (11.4-16.0) gm/dL Hct 40.5 (34.0-46.0) % MCV 89.5 (80.0-100.0) fL MCH 29.5 (25.0-35.0) pg MCHC 33.0 (31.0-37.0) g/dL RDW 14.2 (11.5-15.5) % Plt Count 225 (150-450) k/uL MPV 8.9 Neutrophils % (Manual) 58 % Band Neuts % (Manual) 10 % Lymphocytes % (Manual) 15 % Monocytes % (Manual) 16 % Basophils % (Manual) 1 % Neutrophils # (Manual) 2.80 (1.3-7.7) k/uL Lymphocytes # (Manual) 0.63 L (1.0-4.8) k/uL Monocytes # (Manual) 0.67 (0-1.0) k/uL Basophils # (Manual) 0.04 (0-0.2) k/uL Nucleated RBCs 0 (0-0) /100 WBC Manual Slide Review Performed Sodium 138 (137-145) mmol/L Potassium 5.1 (3.5-5.1) mmol/L Chloride 100 (98-107) mmol/L Carbon Dioxide 23 (22-30) mmol/L Anion Gap 15 mmol/L BUN 46 H (7-17) mg/dL Creatinine 0.82 (0.52-1.04) mg/dL Est GFR (CKD-EPI)AfAm 79 (>60 ml/min/1.73 sqM) Est GFR (CKD-EPI)NonAf 68 (>60 ml/min/1.73 sqM) Glucose 158 H (74-99) mg/dL Lactic Ac Sepsis Rflx Plasma Lactic Acid John 2.2 H* (0.7-2.0) mmol/L Calcium 9.3 (8.4-10.2) mg/dL Total Bilirubin 1.2 (0.2-1.3) mg/dL AST 29 (14-36) U/L ALT 16 (4-34) U/L Alkaline Phosphatase 50 (38-126) U/L Total Protein 6.8 (6.3-8.2) g/dL Albumin 4.1 (3.5-5.0) g/dL Amylase 33 (30-110) U/L Lipase 28 (23-300) U/L Urine Color Urine Appearance (Clear) Urine pH (5.0-8.0) Ur Specific [place] (1.001-1.035) Urine Protein (Negative) Urine Glucose (UA) (Negative) Urine Ketones (Negative) Urine Blood (Negative) Urine Nitrite (Negative) Urine Bilirubin (Negative) Urine Urobilinogen (<2.0) mg/dL Ur Leukocyte Esterase (Negative) Urine RBC (0-5) /hpf Urine WBC (0-5) /hpf Ur Squamous Epith Cells (0-4) /hpf Hyaline Casts (0-2) /lpf Urine Mucus (None) /hpf 09/03/23 09/03/23 09/03/23 Range/Units 11:07 11:43 14:18 WBC (3.8-10.6) k/uL RBC (3.80-5.40) m/uL Hgb (11.4-16.0) gm/dL Hct (34.0-46.0) % MCV (80.0-100.0) fL MCH (25.0-35.0) pg MCHC (31.0-37.0) g/dL RDW (11.5-15.5) % Plt Count (150-450) k/uL MPV Neutrophils % (Manual) % Band Neuts % (Manual) % Lymphocytes % (Manual) % Monocytes % (Manual) % Basophils % (Manual) % Neutrophils # (Manual) (1.3-7.7) k/uL Lymphocytes # (Manual) (1.0-4.8) k/uL Monocytes # (Manual) (0-1.0) k/uL Basophils # (Manual) (0-0.2) k/uL Nucleated RBCs (0-0) /100 WBC Manual Slide Review Sodium (137-145) mmol/L Potassium (3.5-5.1) mmol/L Chloride (98-107) mmol/L Carbon Dioxide (22-30) mmol/L Anion Gap mmol/L BUN (7-17) mg/dL Creatinine (0.52-1.04) mg/dL Est GFR (CKD-EPI)AfAm (>60 ml/min/1.73 sqM) Est GFR (CKD-EPI)NonAf (>60 ml/min/1.73 sqM) Glucose (74-99) mg/dL Lactic Ac Sepsis Rflx Y Plasma Lactic Acid John 2.4 H* (0.7-2.0) mmol/L Calcium (8.4-10.2) mg/dL Total Bilirubin (0.2-1.3) mg/dL AST (14-36) U/L ALT (4-34) U/L Alkaline Phosphatase (38-126) U/L Total Protein (6.3-8.2) g/dL Albumin (3.5-5.0) g/dL Amylase (30-110) U/L Lipase (23-300) U/L Urine Color Yellow Urine Appearance Cloudy H (Clear) Urine pH 5.5 (5.0-8.0) Ur Specific [place] 1.038 H (1.001-1.035) Urine Protein 1+ H (Negative) Urine Glucose (UA) Trace H (Negative) Urine Ketones Trace H (Negative) Urine Blood Small H (Negative) Urine Nitrite Negative (Negative) Urine Bilirubin 1+ H (Negative) Urine Urobilinogen 2.0 (<2.0) mg/dL Ur Leukocyte Esterase Negative (Negative) Urine RBC 9 H (0-5) /hpf Urine WBC 2 (0-5) /hpf Ur Squamous Epith Cells 8 H (0-4) /hpf Hyaline Casts 2 (0-2) /lpf Urine Mucus Many H (None) /hpf Disposition <Gael Felix - Last Filed: 09/03/23 10:58> Is patient prescribed a controlled substance at d/c from ED?: No Time of Disposition: 14:08 Decision to Admit Reason: Admit from EC Decision Date: 09/03/23 Decision Time: 14:08 <Evelyn Reyes - Last Filed: 09/05/23 00:37> Clinical Impression: Small bowel obstruction, Vomiting, Abdominal pain Disposition: ADMITTED IP TO THIS [facility] Condition: Serious
[2023-09-03 11:32] LABS: ALT 16 U/L (4-34); African American GFR (CKD) 79 (>60 ml/min/1.73 sqM); Albumin 4.1 g/dL (3.5-5.0); Amylase 33 U/L (30-110); Anion Gap 15 mmol/L; Blood Urea Nitrogen 46 mg/dL (7-17); Calcium 9.3 mg/dL (8.4-10.2); Carbon Dioxide 23 mmol/L (22-30); Chloride 100 mmol/L (98-107); Glucose 158 mg/dL (74-99); Lipase 28 U/L (23-300); Non-African American GFR(CKD) 68 (>60 ml/min/1.73 sqM); Sodium 138 mmol/L (137-145); Total Bilirubin 1.2 mg/dL (0.2-1.3); Total Protein 6.8 g/dL (6.3-8.2)
[2023-09-03 11:41] LABS: AST 29 U/L (14-36); Alkaline Phosphatase 50 U/L (38-126); Potassium 5.1 mmol/L (3.5-5.1)
[2023-09-03 11:56] LABS: HCT 40.5 % (34.0-46.0); HGB 13.4 gm/dL (11.4-16.0); MCH 29.5 pg (25.0-35.0); MCV 89.5 fL (80.0-100.0); Mean Platelet Volume 8.9; Platelet Count 225 k/uL (150-450); RBC 4.52 m/uL (3.80-5.40); RDW 14.2 % (11.5-15.5); WBC 4.2 k/uL (3.8-10.6)
--- NOTE | 2023-09-03 12:37 | CT ---
EXAMINATION: CT ABDOMEN AND PELVIS WITH IV CONTRAST DATE OF EXAMINATION: 09/03/2023. COMPARISON: 03/13/2023. INDICATION: Abdominal pain. PROCEDURE: Axial CT of the abdomen and pelvis was performed with contrast and sagittal and coronal reformatted images were performed. CT dose lowering techniques were used, to include: automated expos ure control, adjustment for patient size, and/or use of iterative reconstruction. 100 mL of Isovue-30 0 was given intravenously. FINDINGS: LOWER CHEST : The visualized lung bases are clear. There are no pleural or pericardial effusions. ABDOMEN: Liver and Biliary system: Fossae. I did not say that previously I 73 the future. I told you have to work. Adrenal glands: Normal. Kidneys and ureters: Normal. Spleen: Normal. Pancreas: There is a 2 cm cystic structure within the head of the pancreas.. Gallbladder: Surgically absent. Lymph nodes, Peritoneum and mesentery: There is no mesenteric or retroperitoneal lymphadenopathy. Gastrointestinal tract: Dilated loops of small bowel are seen throughout the abdomen and pelvis with decompression of distal small bowel compatible with a small bowel obstruction. The appendix is not clearly seen. Aorta/IVC: There is mild vascular calcification throughout the abdominal aorta without evidence of aneurysmal dilation or dissection. IVC normal. Abdominal wall: Normal. PELVIS: Fluid: There is no free fluid in the pelvis. Lymph Nodes: There is no pelvic or inguinal lymphadenopathy.. Urinary bladder: Normal. BONES: There are no osseous destructive lesions.. ADDITIONAL SIGNIFICANT FINDINGS: None. IMPRESSION: 1. Small bowel obstruction. 2. Unchanged cystic structure within the head of the pancreas is favored to be benign. Was evaluated by MRI on 11/18/2022. Follow-up in one year is recommended.
[2023-09-03 12:46] LABS: Appearance,Urine Cloudy (Clear); Bilirubin,Urine 1+ (Negative); Blood,Urine Small (Negative); Color,Urine Yellow; Glucose,Urine (UA) Trace (Negative); Hyaline Casts,Urine 2 /lpf (0-2); Ketones,Urine Trace (Negative); Leukocyte Esterase,Urine Negative (Negative); Mucus,Urine Many /hpf; Nitrite,Urine Negative (Negative); PH, Urine 5.5 (5.0-8.0); Protein,Urine 1+ (Negative); RBC,Urine 9 /hpf (0-5); Specific Gravity,Urine 1.038 (1.001-1.035); Squamous Epithelial Cell,Urine 8 /hpf (0-4); WBC,Urine 2 /hpf (0-5)
[2023-09-03 13:58] LABS: Band Neutrophils % 10 %; Basophils # (M) 0.04 k/uL (0-0.2); Lymphocytes # (M) 0.63 k/uL (1.0-4.8); Monocytes # (M) 0.67 k/uL (0-1.0); Neutrophils % (M) 58 %; Nucleated Red Blood Cells 0 /100 WBC (0-0); Total Cells Counted 100
[2023-09-03] MEDS ORDERED: NALOXONE 0.4 MG/ML 1 ML VIAL IV PRN (14:19)
[2023-09-03] MEDS ORDERED: ONDANSETRON 4 MG/2 ML VIAL IVP PRN (14:19)
[2023-09-03] MEDS ORDERED: SODIUM CHLORIDE 0.9% 500 ML 500 ML IV ONE (15:15)
--- NOTE | 2023-09-03 15:17 | P.GSHP ---
History of Present Illness H&P Date: 09/03/23 CHIEF COMPLAINT: Abdominal pain HISTORY OF PRESENT ILLNESS: This is a 78-year-old female who presented to the hospital with complaints of lower abdominal pain that started last night. She also is having vomiting. She did have a bowel movement after the abdominal pain started. However, since then she's had no bowel movement and no flatus. Her abdomen is distended and firm. Patient has prior history of bowel obstructions. Last bowel obstruction in March 2023 managed conservatively. Patient does have a prior surgical history of a sigmoid bowel resection, hiatal hernia repair and cholecystectomy. PAST MEDICAL HISTORY: Chest Pain / Angina, GERD/Reflux, Hyperlipidemia, Hypertension, Osteoarthritis (OA), Skin Disorder, Thyroid Disorder,Hx. pancreatitis with pancreatic CYSTS. PSORIASISlt ankle. angina, vitamin D deficiency, degenerative disc disease of the CERIVAL AND lumbar spine unable to lift anything over 10# or stand for long periods of time. Diverticulitis. Bronchits. UTERINE fibroids. Falls. Hiatal hernia PAST SURGICAL HISTORY: adenoidectomy, Back Surgery, Bowel Resection, Cholecystectomy, Hernia Repair, Hysterectomy, Orthopedic Surgery, Tonsillectomy MEDICATIONS: See below ALLERGIES: See below SOCIAL HISTORY: No illicit drug use. REVIEW OF SYSTEMS: CONSTITUTIONAL: Denies fever or chills. HEENT: Denies blurred vision, vision changes, or eye pain. Denies hemoptysis CARDIOVASCULAR: Denies chest pain or pressure. RESPIRATORY: No shortness of breath. GASTROINTESTINAL: See HPI for pertinent findings HEMATOLOGIC: Denies bleeding disorders. GENITOURINARY: Denies any blood in urine or increased urinary frequency. SKIN: Denies pruitis. Denies rash. PHYSICAL EXAM: VITAL SIGNS: Reviewed GENERAL: Well-developed in no acute distress. ABDOMEN: Distended. Tenderness to palpation to lower abdomen. NEUROLOGIC: Alert and oriented. Cranial nerves II through XII grossly intact. LABORATORY DATA: WBC 4.2 Hgb 13.4 platelets 225 Sodium 138 potassium 5.1 creatinine 0.82 Lactic acid 2.4 LFTs normal Urinalysis negative for infection IMAGING: Computed tomography scan abdomen and pelvis small bowel obstruction. Unchanged cystic structure within the head of the pancreas is favored to be benign. ASSESSMENT: 1. Small bowel obstruction 2. History of abdominal surgeries 3. History of prior small bowel obstructions 4. Elevated lactic acid PLAN: -Place NG tube for decompression -Keep patient nothing by mouth -Consult IR service for PICC line placement for TPN -Consult dietitian to Start TPN for nutrition support -Continue IV fluids -Give 500ml fluid bolus -Continue supportive care -Continue antiemetics -Continue pain management -Medicine service consulted for medical management Physician Moisture Conditioner Operator note has been reviewed by physician. Signing provider agrees with the documented findings, assessment, and plan of care. Past Medical History Past Medical History: Chest Pain / Angina, GERD/Reflux, Hyperlipidemia, Hypertension, Osteoarthritis (OA), Skin Disorder, Thyroid Disorder Additional Past Medical History / Comment(s): Hx. pancreatitis with pancreatic CYSTS. PSORIASISlt ankle. angina, vitamin D deficiency, degenerative disc disease of the CERIVAL AND lumbar spine unable to lift anything over 10# or stand for long periods of time. Diverticulitis. Bronchits. UTERINE fibroids. Falls. Hiatal hernia History of Any Multi-Drug Resistant Organisms: None Reported, MRSA, Other MDRO Date of last positivie culture/infection: 2013 in [facility] [facility] MDRO Source:: spider bite on lt leg Past Surgical History: Adenoidectomy, Back Surgery, Bowel Resection, Cholecys tectomy, Hernia Repair, Hysterectomy, Orthopedic Surgery, Tonsillectomy Additional Past Surgical History / Comment(s): Anterior cervical discectomy with fusion(toal 3 sx has wire in neck) , lumbar fusion 3-screws in back. R hip surgery(NOT A HIP REPLACEMENT). Left 1st rib removal r/t thoracic outlet syndrome. Hiatal hernia surg. Bilateral cataract surgery with lens implant Lt elbow tendon release. Sx on gums d/t infection. Dental implant Past Anesthesia/Blood Transfusion Reactions: No Reported Reaction Additional Past Anesthesia/Blood Transfusion Reaction / Comment(s): blood transfusion in 1969-no reaction Past Psychological History: Depression Smoking Status: Never smoker Past Alcohol Use History: None Reported Past Drug Use History: None Reported - Past Family History Father History Unknown: Yes Family Medical History: Coronary Artery Disease (CAD) Additional Family Medical History / Comment(s): aortic aneurysm at 72 Mother Family Medical History: CVA/TIA Brother(s) Family Medical History: No Reported History Sister(s) Family Medical History: Vascular Disorder Son(s) Family Medical History: No Reported History Daughter(s) Family Medical History: Unable to Obtain Medications and Allergies Home Medications Medication Instructions Recorded Confirmed Type amLODIPine [Norvasc] 2.5 mg PO DAILY 05/17/21 09/03/23 History Aspirin EC [Ecotrin Low Dose] 81 mg PO DAILY 03/13/23 09/03/23 History Donepezil [Aricept] 5 mg PO DAILY 03/13/23 09/03/23 History Levothyroxine Sodium [Synthroid] 100 mcg PO DAILY 03/13/23 09/03/23 History Oxybutynin Chloride [oxyBUTYnin 10 mg PO DAILY 03/13/23 09/03/23 History chloride ER] Sertraline [Zoloft] 50 mg PO DAILY 03/13/23 09/03/23 History Pantoprazole Sodium [Protonix] 40 mg PO DAILY 07/16/23 09/03/23 History Rosuvastatin Calcium 5 mg PO DIRECTED 07/16/23 09/03/23 History risperiDONE [RisperDAL] 0.25 mg PO BID 30 Days #60 tab 07/18/23 09/03/23 Rx Allergies Allergy/AdvReac Type Severity Reaction Status Date / Time clindamycin Allergy Rash/Hives Verified 09/03/23 14:54 atorvastatin calcium AdvReac LEG CRAMPS Verified 09/03/23 14:54 [From Lipitor] morphine AdvReac Nausea & Verified 09/03/23 14:54 Vomiting Surgical - Exam Vital Signs Temp Pulse Resp BP Pulse Ox 98.8 F 94 16 107/60 98 09/03/23 10:13 09/03/23 10:13 09/03/23 10:13 09/03/23 10:13 09/03/23 10:13 Results - Labs 09/03/23 11:07 09/03/23 11:07 Abnormal Lab Results - Last 24 Hours (Table) 09/03/23 09/03/23 09/03/23 Range/Units 11:07 11:07 11:07 Lymphocytes # (Manual) 0.63 L (1.0-4.8) k/uL BUN 46 H (7-17) mg/dL Glucose 158 H (74-99) mg/dL Plasma Lactic Acid John 2.2 H* (0.7-2.0) mmol/L Urine Appearance (Clear) Ur Specific [place] (1.001-1.035) Urine Protein (Negative) Urine Glucose (UA) (Negative) Urine Ketones (Negative) Urine Blood (Negative) Urine Bilirubin (Negative) Urine RBC (0-5) /hpf Ur Squamous Epith Cells (0-4) /hpf Urine Mucus (None) /hpf 09/03/23 09/03/23 Range/Units 11:07 14:18 Lymphocytes # (Manual) (1.0-4.8) k/uL BUN (7-17) mg/dL Glucose (74-99) mg/dL Plasma Lactic Acid John 2.4 H* (0.7-2.0) mmol/L Urine Appearance Cloudy H (Clear) Ur Specific [place] 1.038 H (1.001-1.035) Urine Protein 1+ H (Negative) Urine Glucose (UA) Trace H (Negative) Urine Ketones Trace H (Negative) Urine Blood Small H (Negative) Urine Bilirubin 1+ H (Negative) Urine RBC 9 H (0-5) /hpf Ur Squamous Epith Cells 8 H (0-4) /hpf Urine Mucus Many H (None) /hpf Diabetes panel 09/03/23 Range/Units 11:07 Sodium 138 (137-145) mmol/L Potassium 5.1 (3.5-5.1) mmol/L Chloride 100 (98-107) mmol/L Carbon Dioxide 23 (22-30) mmol/L BUN 46 H (7-17) mg/dL Creatinine 0.82 (0.52-1.04) mg/dL Glucose 158 H (74-99) mg/dL Calcium 9.3 (8.4-10.2) mg/dL AST 29 (14-36) U/L ALT 16 (4-34) U/L Alkaline Phosphatase 50 (38-126) U/L Total Protein 6.8 (6.3-8.2) g/dL Albumin 4.1 (3.5-5.0) g/dL Calcium panel 09/03/23 Range/Units 11:07 Calcium 9.3 (8.4-10.2) mg/dL Albumin 4.1 (3.5-5.0) g/dL Pituitary panel 09/03/23 Range/Units 11:07 Sodium 138 (137-145) mmol/L Potassium 5.1 (3.5-5.1) mmol/L Chloride 100 (98-107) mmol/L Carbon Dioxide 23 (22-30) mmol/L BUN 46 H (7-17) mg/dL Creatinine 0.82 (0.52-1.04) mg/dL Glucose 158 H (74-99) mg/dL Calcium 9.3 (8.4-10.2) mg/dL Adrenal panel 09/03/23 Range/Units 11:07 Sodium 138 (137-145) mmol/L Potassium 5.1 (3.5-5.1) mmol/L Chloride 100 (98-107) mmol/L Carbon Dioxide 23 (22-30) mmol/L BUN 46 H (7-17) mg/dL Creatinine 0.82 (0.52-1.04) mg/dL Glucose 158 H (74-99) mg/dL Calcium 9.3 (8.4-10.2) mg/dL Total Bilirubin 1.2 (0.2-1.3) mg/dL AST 29 (14-36) U/L ALT 16 (4-34) U/L Alkaline Phosphatase 50 (38-126) U/L Total Protein 6.8 (6.3-8.2) g/dL Albumin 4.1 (3.5-5.0) g/dL
[2023-09-03] MEDS ORDERED: ACETAMINOPHEN IV (For NPO) 1,000 MG in EMPTY BAG 1 BAG IVPB PRN (15:29)
--- NOTE | 2023-09-03 16:56 | XR ---
EXAMINATION TYPE: XR chest 1V portable DATE OF EXAM: 09/03/2023 4:52 PM CLINICAL INDICATION:Female, 78 years old with history of NG placement; [facility] COMPARISON: Chest radiographs from 3. TECHNIQUE: XR chest 1V portable Frontal view of the chest. FINDINGS: Lungs/Pleura: There is flattening of the diaphragm with increased lucency of the lungs. No evidence o f pneumothorax, pleural effusion or focal consolidation. Left lower lung calcified granuloma. Pulmonary vascularity: Unremarkable. Heart/mediastinum: Cardiomediastinal silhouette is unremarkable. Atherosclerotic calcifications are seen in the aorta. Musculoskeletal: No acute osseous pathology. Other findings: None Lines/Tubes: Nasogastric tube with side-port projecting over the distal esophagus. IMPRESSION: 1. Nasogastric tube side-port at the distal esophagus consider advancement of at least 8 cm for opti mal placement. 2. COPD changes.
[2023-09-03] MEDS: SODIUM CHLORIDE 0.9% 1,000 ML IV SCH (17:30)
--- NOTE | 2023-09-03 18:07 | XR ---
EXAMINATION: XR chest 1V portable DATE AND TIME: 09/03/2023 5:56 PM CLINICAL INDICATION: [facility]; NG tube placement TECHNIQUE: Portable AP upright COMPARISON: 09/03/2023 at 4:43 PM FINDINGS: The lungs are clear. The pleural spaces are negative. NG tube courses over the expected position of the thoracic esophagus with port superimposed over the gastric fundus and with the tip of the NG tube superimposed over the expected position of the greater curvature of the body of the stomach. The cardiac silhouette is not enlarged. The remainder of the m ediastinal silhouette is unremarkable. The skeletal structures and soft tissues are negative for acute findings. IMPRESSION: No acute radiographic process.
[2023-09-04] MEDS: SODIUM CHLORIDE 0.9% 1,000 ML IV SCH (06:42)
[2023-09-04] MEDS ORDERED: hydrALAZINE HCL 20 MG/ML 1 ML VIAL IVP PRN (10:50)
[2023-09-04 10:55] LABS: Basophils # (A) 0.03 X 10*3/uL (0.00-0.10); Basophils % (A) 0.7 %; Eosinophils # (A) 0.04 X 10*3/uL (0.04-0.35); Eosinophils % (A) 0.9 %; HCT 35.2 % (37.2-46.3); HGB 11.1 g/dL (12.0-15.0); Lymphocytes # (A) 1.05 X 10*3/uL (0.90-5.00); Lymphocytes % (A) 23.8 %; MCH 28.5 pg (27.0-32.0); MCHC 31.5 g/dL (32.0-37.0); MCV 90.3 FL (80.0-97.0); Mean Platelet Volume 10.5 FL (9.5-12.2); Monocytes # (A) 0.89 X 10*3/uL (0.20-1.00); Monocytes % (A) 20.2 %; NRBC Per 100 WBC 0 X 10*3/uL (0.00-0.01); Neutrophils # (A) 2.39 X 10*3/uL (1.80-7.70); Neutrophils % (A) 54.2 %; Platelet Count 160 X 10*3/uL (140-440); RDW 14.2 % (11.5-14.5); WBC 4.41 X 10*3/uL (4.50-10.00)
--- NOTE | 2023-09-04 10:56 | P.CONS ---
History of Present Illness - Reason for Consult Consult date: 09/04/23 Medical management Requesting physician: Deng Camara - History of Present Illness This is a 78-year-old female patient of Dr. Turner presented with complaints of acute nausea vomiting and abdominal pain that has been occurring over the past week. Patient reports his symptoms started last Thursday. Patient reports minimum bowel movements. Abdomen is distended and firm. Patient has a past med ical history of previous bowel obstructions and history of sigmoid bowel resection, hiatal hernia repair and cholecystectomy. Additional medical history includes GERD, hyperlipidemia, hypertension, arthritis, thyroid disorder, pancreatitis, degenerative disc disease.CT of abdomen and pelvis completed in ER showing small bowel obstruction unchanged cystic structure with the head of the pancreas is favored to be benign was evaluated by MRI and 11/18/2022. This time patient has been admitted to surgical services NG tube placed. Patient started on IV Protonix. Currently nothing by mouth. Patient reports improvement with abdominal discomfort. Current vital signs temp 97.4, heart 58, blood pressure 112/92 with pulse ox 97% on room air Review of Systems Please refer to HPI otherwise unremarkable Past Medical History Past Medical History: Chest Pain / Angina, GERD/Reflux, Hyperlipidemia, Hypertension, Osteoarthritis (OA), Skin Disorder, Thyroid Disorder Additional Past Medical History / Comment(s): Hx. pancreatitis with pancreatic CYSTS. PSORIASISlt ankle. angina, vitamin D deficiency, degenerative disc disease of the CERIVAL AND lumbar spine unable to lift anything over 10# or stand for long periods of time. Diverticulitis. Bronchits. UTERINE fibroids. Falls. Hiatal hernia History of Any Multi-Drug Resistant Organisms: None Reported, MRSA, Other MDRO Year Discovered:: 2013 in [facility] MDRO Source:: spider bite on lt leg Past Surgical History: Adenoidectomy, Back Surgery, Bowel Resection, Cholecystectomy, Hernia Repair, Hysterectomy, Orthopedic Surgery, Tonsillectomy Additional Past Surgical History / Comment(s): Anterior cervical discectomy with fusion(toal 3 sx has wire in neck) , lumbar fusion 3-screws in back. R hip surgery(NOT A HIP REPLACEMENT). Left 1st rib removal r/t thoracic outlet syndrome. Hiatal hernia surg. Bilateral cataract surgery with lens implant Lt elbow tendon release. Sx on gums d/t infection. Dental implant Past Anesthesia/Blood Transfusion Reactions: No Reported Reaction Additional Past Anesthesia/Blood Transfusion Reaction / Comm: blood transfusion in 1969-no reaction Past Psychological History: Depression Smoking Status: Never smoker Past Alcohol Use History: None Reported Past Drug Use History: None Reported - Past Family History Father History Unknown: Yes Family Medical History: Coronary Artery Disease (CAD) Additional Family Medical History / Comment(s): aortic aneurysm at 72 Mother Family Medical History: CVA/TIA Brother(s) Family Medical History: No Reported History Sister(s) Family Medical History: Vascular Disorder Son(s) Family Medical History: No Reported History Daughter(s) Family Medical History: Unable to Obtain Medications and Allergies Home Medications Medication Instructions Recorded Confirmed Type amLODIPine [Norvasc] 2.5 mg PO DAILY 05/17/21 09/03/23 History Aspirin EC [Ecotrin Low Dose] 81 mg PO DAILY 03/13/23 09/03/23 History Donepezil [Aricept] 5 mg PO DAILY 03/13/23 09/03/23 History Levothyroxine Sodium [Synthroid] 100 mcg PO DAILY 03/13/23 09/03/23 History Oxybutynin Chloride [oxyBUTYnin 10 mg PO DAILY 03/13/23 09/03/23 History chloride ER] Sertraline [Zoloft] 50 mg PO DAILY 03/13/23 09/03/23 History Pantoprazole Sodium [Protonix] 40 mg PO DAILY 07/16/23 09/03/23 History Rosuvastatin Calcium 5 mg PO DIRECTED 07/16/23 09/03/23 History risperiDONE [RisperDAL] 0.25 mg PO BID 30 Days #60 tab 07/18/23 09/03/23 Rx Allergies Allergy/AdvReac Type Severity Reaction Status Date / Time clindamycin Allergy Rash/Hives Verified 09/03/23 14:54 atorvastatin calcium AdvReac LEG CRAMPS Verified 09/03/23 14:54 [From Lipitor] morphine AdvReac Nausea & Verified 09/03/23 14:54 Vomiting Physical Exam Vitals: Vital Signs Temp Pulse Pulse Resp BP BP Pulse Ox 09/04/23 08:00 97.4 F L 58 L 14 112/92 97 09/04/23 01:31 97.8 F 54 L 18 145/57 96 09/03/23 20:00 98.3 F 72 18 147/57 99 09/03/23 13:35 98.7 F 63 18 139/71 97 Intake and Output 09/03/23 09/04/23 09/04/23 22:59 06:59 14:59 Output Total 1000 Balance -1000 Output: Gastric Drainage 550 Urine 450 Head normocephalic Neck supple Lungs clear to auscultation bilaterally no wheezing or crackles Heart regular rate and rhythm S1-S2, no rub or gallop Abdomen slightly distended tender to touch Extremities no edema Neuro alert and orientated to 3 Results CBC & Chem 7: 09/03/23 11:07 09/03/23 11:07 Labs: Abnormal Lab Results - Last 24 Hours (Table) 09/03/23 09/03/23 09/03/23 Range/Units 11:07 11:07 11:07 Lymphocytes # (Manual) 0.63 L (1.0-4.8) k/uL BUN 46 H (7-17) mg/dL Glucose 158 H (74-99) mg/dL Plasma Lactic Acid John 2.2 H* (0.7-2.0) mmol/L Urine Appearance (Clear) Ur Specific [place] (1.001-1.035) Urine Protein (Negative) Urine Glucose (UA) (Negative) Urine Ketones (Negative) Urine Blood (Negative) Urine Bilirubin (Negative) Urine RBC (0-5) /hpf Ur Squamous Epith Cells (0-4) /hpf Urine Mucus (None) /hpf 09/03/23 09/03/23 Range/Units 11:07 14:18 Lymphocytes # (Manual) (1.0-4.8) k/uL BUN (7-17) mg/dL Glucose (74-99) mg/dL Plasma Lactic Acid John 2.4 H* (0.7-2.0) mmol/L Urine Appearance Cloudy H (Clear) Ur Specific [place] 1.038 H (1.001-1.035) Urine Protein 1+ H (Negative) Urine Glucose (UA) Trace H (Negative) Urine Ketones Trace H (Negative) Urine Blood Small H (Negative) Urine Bilirubin 1+ H (Negative) Urine RBC 9 H (0-5) /hpf Ur Squamous Epith Cells 8 H (0-4) /hpf Urine Mucus Many H (None) /hpf Assessment and Plan Assessment: 1. Nausea vomiting abdominal pain secondary to small bowel obstruction 2. Recent history of small bowel obstructions 3. History of abdominal surgeries including resection 4. Elevated lactic acid. Patient is afebrile with no elevated white blood cell count continue to monitor. 5. History of GERD 6. History of hypo-thyroidism 7. History of hyperlipidemia 8. History of essential hypertension 9. History of degenerative disc disease Thank you for this consultation we'll continue to follow patient closely throughout stay Time with Patient: Greater than 30 (Greater than 60% of the total time spent in counseling and coordination of care)
[2023-09-04 11:00] LABS: Blood Urea Nitrogen 38.5 mg/dL (9.0-27.0); Calcium 8.5 mg/dL (8.7-10.3); Carbon Dioxide 21.8 mmol/L (21.6-31.8); Chloride 106 mmol/L (96-109); Glucose 105 mg/dL (70-110); Potassium 3.6 mmol/L (3.5-5.5); Sodium 141 mmol/L (135-145)
[2023-09-04] MEDS ORDERED: IOPAMIDOL CONTRAST (ORAL USE) VIAL PO PRN (11:25)
--- NOTE | 2023-09-04 12:23 | P.PN ---
Subjective Progress Note Date: 09/04/23 CHIEF COMPLAINT: Abdominal pain HISTORY OF PRESENT ILLNESS: Patient medically with small bowel obstruction. Currently has NG tube in place 550 greenish output through the night. Patient does report abdominal pain but less than yesterday. She denies any flatus or bowel movement. Denies any nausea. Afebrile. WBC 4.41 hgb 11.1 platelets 160 sodium 141 potassium 3.6 creatinine 0.7 lactic acid down to 1.6 PHYSICAL EXAM: VITAL SIGNS: Reviewed. GENERAL: Well-developed in no acute distress. ABDOMEN: Softer. Less distended. Tenderness to palpation of the lower abdomen NEUROLOGIC: Alert and oriented. Cranial nerves II through XII grossly intact. ASSESSMENT: 1. Small bowel obstruction 2. History of abdominal surgeries 3. History of prior small bowel obstructions 4. Elevated lactic acid improved with fluids PLAN: -Continue NG tube for decompression -Keep patient nothing by mouth -Computed tomography scan abdomen and pelvis with contrast ordered for Thursday for further evaluation of small bowel obstruction -Continue IV fluids -Continue supportive care -DVT prophylaxis subcu heparin Physician Denial Management Representative note has been reviewed by physician. Signing provider agrees with the documented findings, assessment, and plan of care. Objective - Vital Signs Vital signs: Vital Signs Temp 97.4 F L 09/04/23 08:00 Pulse 58 L 09/04/23 08:00 Resp 14 09/04/23 08:00 BP 112/92 09/04/23 08:00 Pulse Ox 97 09/04/23 08:00 FiO2 Intake & Output 09/03/23 09/04/23 09/04/23 18:59 06:59 18:59 Output Total 1000 Balance -1000 Weight 49.895 kg Output: Gastric Drainage 550 Urine 450 - Labs CBC & Chem 7: 09/04/23 07:43 09/04/23 07:43 Labs: Abnormal Lab Results - Last 24 Hours (Table) 09/03/23 09/03/23 09/03/23 Range/Units 11:07 11:07 11:07 WBC (4.50-10.00) X 10*3/uL RBC (4.10-5.20) X 10*6/uL Hgb (12.0-15.0) g/dL Hct (37.2-46.3) % MCHC (32.0-37.0) g/dL Lymphocytes # (Manual) 0.63 L (1.0-4.8) k/uL Anion Gap (4.00-12.00) mmol/L BUN 46 H (7-17) mg/dL BUN/Creatinine Ratio (12.00-20.00) Ratio Glucose 158 H (74-99) mg/dL Plasma Lactic Acid John 2.2 H* (0.7-2.0) mmol/L Calcium (8.7-10.3) mg/dL Urine Appearance (Clear) Ur Specific [place] (1.001-1.035) Urine Protein (Negative) Urine Glucose (UA) (Negative) Urine Ketones (Negative) Urine Blood (Negative) Urine Bilirubin (Negative) Urine RBC (0-5) /hpf Ur Squamous Epith Cells (0-4) /hpf Urine Mucus (None) /hpf 09/03/23 09/03/23 09/04/23 Range/Units 11:07 14:18 07:43 WBC 4.41 L (4.50-10.00) X 10*3/uL RBC 3.90 L (4.10-5.20) X 10*6/uL Hgb 11.1 L (12.0-15.0) g/dL Hct 35.2 L (37.2-46.3) % MCHC 31.5 L (32.0-37.0) g/dL Lymphocytes # (Manual) (1.0-4.8) k/uL Anion Gap (4.00-12.00) mmol/L BUN (7-17) mg/dL BUN/Creatinine Ratio (12.00-20.00) Ratio Glucose (74-99) mg/dL Plasma Lactic Acid John 2.4 H* (0.7-2.0) mmol/L Calcium (8.7-10.3) mg/dL Urine Appearance Cloudy H (Clear) Ur Specific [place] 1.038 H (1.001-1.035) Urine Protein 1+ H (Negative) Urine Glucose (UA) Trace H (Negative) Urine Ketones Trace H (Negative) Urine Blood Small H (Negative) Urine Bilirubin 1+ H (Negative) Urine RBC 9 H (0-5) /hpf Ur Squamous Epith Cells 8 H (0-4) /hpf Urine Mucus Many H (None) /hpf 09/04/23 Range/Units 07:43 WBC (4.50-10.00) X 10*3/uL RBC (4.10-5.20) X 10*6/uL Hgb (12.0-15.0) g/dL Hct (37.2-46.3) % MCHC (32.0-37.0) g/dL Lymphocytes # (Manual) (1.0-4.8) k/uL Anion Gap 13.20 H (4.00-12.00) mmol/L BUN 38.5 H (7-17) mg/dL BUN/Creatinine Ratio 55.00 H (12.00-20.00) Ratio Glucose (74-99) mg/dL Plasma Lactic Acid John (0.7-2.0) mmol/L Calcium 8.5 L (8.7-10.3) mg/dL Urine Appearance (Clear) Ur Specific [place] (1.001-1.035) Urine Protein (Negative) Urine Glucose (UA) (Negative) Urine Ketones (Negative) Urine Blood (Negative) Urine Bilirubin (Negative) Urine RBC (0-5) /hpf Ur Squamous Epith Cells (0-4) /hpf Urine Mucus (None) /hpf
[2023-09-04] MEDS: HYDROmorphone 0.5 MG/0.5 ML SYRINGE IVP PRN (13:41)
[2023-09-04] MEDS ORDERED: IV FLUID CONTINUATION 1,000 ML IV ONE (14:21)
[2023-09-04] MEDS ORDERED: LIDOCAINE 1% INJ 10MG/ML (20 ML MDV) SQ ONE (14:40)
[2023-09-04 14:58] VITALS: BMI 21.4
--- NOTE | 2023-09-04 15:14 | P.OP ---
Date of Procedure: 09/04/23 Description of Procedure: Preoperative Diagnosis: Need for peripheral nutrition Postoperative Diagnosis: Same. Procedure(s) Performed: Ultrasound-guided cannulation left basilic vein. Insertion of peripherally inserted central catheter under fluoroscopic guidance. Anesthesia: local 1% lidocaine plain Surgeon: Brayden Estimated Blood Loss (ml): 5 IV fluids (ml): 0 Urine output (ml): 0 Pathology: none sent Condition: stable Disposition: no change Indications for Procedure: Patient requires peripheral nutrition therefore patient is offered a PICC line. Description of Procedure: Patient was brought to the special procedure suite. The left upper extremity sterilely prepped and draped in usual manner. Ultrasound was utilized to identify the basilic vein which was normally compressible free of visible thrombus. Permenant image was stored. 1% Xylocaine was utilized for local anesthesia tissues overlying the vein. Through this anesthetized area and with the aid of ultrasound a micropuncture needle was utilized to cannulate the vein. Once cannulated, Softip guidewire was advanced into the vein. The needle was withdrawn and a micropuncture sheath and dilator advanced over the guidewire. The guidewire was withdrawn and exchanged for the PICC guidewire and measured 40 cm to the cavoatrial junction. The catheter was cut to size and advanced into the cavoatrial junction without resistance. The sheath was peeled away. Blood was easily withdrawn through the catheter and the catheter was then flushed with heparinized saline solution and secured to the skin. Patient tolerated procedure well and was returned to their room in satisfactory and stable condition.
--- NOTE | 2023-09-04 15:39 | IR ---
EXAMINATION TYPE: IR cvc insert >=5 years DATE OF EXAM: 09/04/2023 COMPARISON: NONE HISTORY: Fluoroscopy time. Fluoroscopy was provided to the referring clinician.
[2023-09-04] MEDS ORDERED: MVI, ADULT NO.4 WITH VIT K 10 ML, TRACE (CONC-1ML/DOSE) 1 ML in AMINO ACID 5%-D15W+LYTE... IV SCH ×3 (17:00)
[2023-09-04] MEDS: FAT EMULSION 20% 250 ML IV SCH (18:38)
[2023-09-04] MEDS: HEPARIN SODIUM,PORCINE 5,000 UNIT/ML 1 ML VIAL SQ SCH (20:47)
[2023-09-05] MEDS: HYDROmorphone 0.5 MG/0.5 ML SYRINGE IVP PRN ×2 (01:53→17:28)
[2023-09-05] MEDS: HEPARIN SODIUM,PORCINE 5,000 UNIT/ML 1 ML VIAL SQ SCH ×2 (08:38→23:43)
[2023-09-05] MEDS: LEVOTHYROXINE IVP 100 MCG/5 ML VIAL IV SCH (08:38)
[2023-09-05] MEDS: PANTOPRAZOLE 40 MG/10 ML VIAL IVP SCH (08:38)
[2023-09-05 10:35] LABS: African American GFR (CKD) >90 (>60 ml/min/1.73 sqM); Anion Gap 8 mmol/L; Blood Urea Nitrogen 42 mg/dL (7-17); Carbon Dioxide 24 mmol/L (22-30); Chloride 104 mmol/L (98-107); Glucose 133 mg/dL (74-99); Non-African American GFR(CKD) 88 (>60 ml/min/1.73 sqM); Phosphorus 3.1 mg/dL (2.5-4.5); Potassium 3.5 mmol/L (3.5-5.1); Sodium 136 mmol/L (137-145)
--- NOTE | 2023-09-05 12:45 | P.PN ---
Subjective Progress Note Date: 09/05/23 Celeste Haines, is a 78-year-old female patient of Dr. Turner presented with complaints of acute nausea vomiting and abdominal pain that has been occurring over the past week. Patient reports his symptoms started last Thursday. Patient reports minimum bowel movements. Abdomen is distended and firm. Patient has a past medical history of previous bowel obstructions and history of sigmoid bowel resection, hiatal hernia repair and cholecystectomy. Additional medical history includes GERD, hyperlipidemia, hypertension, arthritis, thyroid disorder, pancreatitis, degenerative disc disease.CT of abdomen and pelvis completed in ER showing small bowel obstruction unchanged cystic structure with the head of the pancreas is favored to be benign was evaluated by MRI and 11/18/2022. This time patient has been admitted to surgical services NG tube placed. Patient started on IV Protonix. Currently nothing by mouth. Patient reports improvement with abdominal discomfort. Current vital signs temp 97.4, heart 58, blood pressure 112/92 with pulse ox 97% on room air On 09/05/2023 patient was seen and examined on the medical floor, she is alert and oriented 3 in no apparent distress NG tube is still in. abdominal pain is improving there is no nausea or vomiting no abdominal distention patient did not have any flatus or any bowel movements yet. Otherwise patient denies any complaints there is no fever or chills no headache or dizziness no chest pain no shortness of breath no cough and no urinary symptoms. Objective - Vital Signs Vital signs: Vital Signs Temp 98.2 F 09/05/23 01:30 Pulse 68 09/05/23 07:35 Resp 18 09/05/23 07:35 BP 115/51 09/05/23 01:30 Pulse Ox 98 09/05/23 01:30 FiO2 Intake & Output 09/04/23 09/05/23 09/05/23 18:59 06:59 18:59 Intake Total 900 Output Total 100 150 Balance 800 -150 Weight 49.895 kg Intake: IV 900 Sodium Chloride 0.9% 1, 900 000 ml @ 75 mls/hr IV . [id number] YULY Rx#:[id number] Output: Gastric Drainage 150 Urine 100 Other: # Voids 3 1 - Exam In general patient is alert and oriented 3 in no apparent distress Head normocephalic and atraumatic Neck supple no JVD no goiter Lungs clear to auscultation bilaterally no wheezing or crackles Heart regular rate and rhythm S1-S2, no rub or gallop Abdomen slightly distended tender to touch Extremities no edema Neuro no gross focal deficits - Labs CBC & Chem 7: 09/04/23 07:43 09/05/23 07:26 Labs: Abnormal Lab Results - Last 24 Hours (Table) 09/04/23 09/04/23 Range/Units 07:43 07:43 WBC 4.41 L (4.50-10.00) X 10*3/uL RBC 3.90 L (4.10-5.20) X 10*6/uL Hgb 11.1 L (12.0-15.0) g/dL Hct 35.2 L (37.2-46.3) % MCHC 31.5 L (32.0-37.0) g/dL Anion Gap 13.20 H (4.00-12.00) mmol/L BUN 38.5 H (9.0-27.0) mg/dL BUN/Creatinine Ratio 55.00 H (12.00-20.00) Ratio Calcium 8.5 L (8.7-10.3) mg/dL Assessment and Plan Assessment: 1. Nausea vomiting abdominal pain secondary to small bowel obstruction 2. Recent history of small bowel obstructions 3. History of abdominal surgeries including resection 4. Elevated lactic acid. Patient is afebrile with no elevated white blood cell count continue to monitor. 5. History of GERD 6. History of hypo-thyroidism 7. History of hyperlipidemia 8. History of essential hypertension 9. History of degenerative disc disease Medications reviewed and reordered IV Synthroid at half dose ordered For DVT prophylaxis subcu heparin For GI prophylaxis IV Protonix Will continue to monitor closely
--- NOTE | 2023-09-05 13:48 | P.PN ---
Subjective Progress Note Date: 09/05/23 Principal diagnosis: Small bowel obstruction Patient resting quietly, notes some lower abdominal discomfort, denies passage of flatus or BM Objective - Vital Signs Vital signs: Vital Signs Temp 98.1 F 09/05/23 07:12 Pulse 68 09/05/23 07:35 Resp 18 09/05/23 07:35 BP 122/67 09/05/23 07:12 Pulse Ox 97 09/05/23 07:12 FiO2 Intake & Output 09/04/23 09/05/23 09/05/23 18:59 06:59 18:59 Intake Total 900 Output Total 100 150 Balance 800 -150 Weight 49.895 kg Intake: IV 900 Sodium Chloride 0.9% 1, 900 000 ml @ 75 mls/hr IV . [id number] YULY Rx#:[id number] Output: Gastric Drainage 150 Urine 100 Other: # Voids 3 1 - Constitutional General appearance: Present: no acute distress - EENT Eyes: Present: PERRLA - Respiratory Respiratory: bilateral: CTA - Cardiovascular Rhythm: regular - Gastrointestinal Gastrointestinal Comment(s): Abdomen is soft, flat, mildly tender bilateral lower quadrants. - Neurologic Neurologic Comment(s): Awake and alert, oriented 2 - Labs CBC & Chem 7: 09/04/23 07:43 09/05/23 07:26 Labs: Abnormal Lab Results - Last 24 Hours (Table) 09/05/23 Range/Units 07:26 Sodium 136 L (137-145) mmol/L BUN 42 H (7-17) mg/dL Glucose 133 H (74-99) mg/dL Calcium 8.0 L (8.4-10.2) mg/dL Assessment and Plan Assessment: 78-year-old female with clinical and CT evidence of small bowel obstruction, likely secondary to adhesions Continue with IV fluids/TPN, NG decompression Repeat computed tomography scan ordered for 12 3, monitor labs, DVT prophylaxis Further recommendations pending computed tomography scan and clinical course. Time with Patient: Less than 30
[2023-09-05] MEDS: SODIUM CHLORIDE 0.9% 1,000 ML IV SCH ×3 (23:25→23:29)
[2023-09-05] MEDS: 1: MVI, ADULT NO.4 WITH VIT K 10 ML, TRACE (CONC-1ML/DOSE) 1 ML in AMINO ACID 5%-D15W+LY IV SCH ×3 (23:26)
--- NOTE | 2023-09-05 23:57 | XR ---
EXAM: XR Chest, 1 View CLINICAL HISTORY: ITS.REASON XR Reason: NG tube placement TECHNIQUE: Frontal view of the chest. COMPARISON: No relevant prior studies available. FINDINGS: Lungs: Unremarkable. No consolidation. Pleural space: Unremarkable. No pneumothorax. Heart: Unremarkable. No cardiomegaly. Mediastinum: Unremarkable. Normal mediastinal contour. Bones/joints: Unremarkable. No acute fracture. Soft tissues: Glossectomy clips. Tubes, lines and devices: Feeding tube terminates in the mid esophagus. Advancement and reimaging recommended prior to use. IMPRESSION: Feeding tube terminates in the mid esophagus. Advancement and reimaging recommended PRIOR TO USE.
[2023-09-06] MEDS: PANTOPRAZOLE 40 MG/10 ML VIAL IVP SCH (08:17)
[2023-09-06] MEDS: LEVOTHYROXINE IVP 100 MCG/5 ML VIAL IV SCH (08:17)
[2023-09-06] MEDS: IOPAMIDOL CONTRAST (ORAL USE) VIAL PO PRN ×2 (08:17→09:05)
[2023-09-06] MEDS: HEPARIN SODIUM,PORCINE 5,000 UNIT/ML 1 ML VIAL SQ SCH ×2 (08:17→21:24)
[2023-09-06 08:51] LABS: Basophils % (A) 0 %; Eosinophils # (A) 0.1 k/uL (0-0.7); Eosinophils % (A) 2 %; HCT 34.7 % (34.0-46.0); HGB 11.4 gm/dL (11.4-16.0); Lymphocytes # (A) 0.8 k/uL (1.0-4.8); Lymphocytes % (A) 14 %; MCH 29.2 pg (25.0-35.0); MCHC 32.7 g/dL (31.0-37.0); MCV 89.1 fL (80.0-100.0); Mean Platelet Volume 8.9; Monocytes # (A) 0.4 k/uL (0-1.0); Monocytes % (A) 8 %; Neutrophils # (A) 4.2 k/uL (1.3-7.7); Neutrophils % (A) 74 %; Platelet Count 150 k/uL (150-450); WBC 5.7 k/uL (3.8-10.6)
[2023-09-06 10:59] LABS: ALT 49 U/L (4-34); AST 76 U/L (14-36); African American GFR (CKD) >90 (>60 ml/min/1.73 sqM); Albumin 2.8 g/dL (3.5-5.0); Albumin/Globulin Ratio 1.2; Alkaline Phosphatase 115 U/L (38-126); Anion Gap 9 mmol/L; Blood Urea Nitrogen 34 mg/dL (7-17); Calcium 7.9 mg/dL (8.4-10.2); Carbon Dioxide 23 mmol/L (22-30); Chloride 104 mmol/L (98-107); Globulin 2.3 g/dL; Glucose 160 mg/dL (74-99); Magnesium 1.9 mg/dL (1.6-2.3); Non-African American GFR(CKD) >90 (>60 ml/min/1.73 sqM); Phosphorus 3.1 mg/dL (2.5-4.5); Potassium 3.3 mmol/L (3.5-5.1); Sodium 136 mmol/L (137-145); Total Bilirubin 0.7 mg/dL (0.2-1.3); Total Protein 5.1 g/dL (6.3-8.2)
--- NOTE | 2023-09-06 11:39 | P.PN ---
Progress Note - Text Progress Note Date: 09/06/23 Progress Note - SOAP Patient Name: Celeste Grijalva Date of : 1945 Patient Status: Inpatient Attending Provider: Deng Camara Date: 09/06/23 10:42 Initialization Date: 09/06/23 10:42 Subjective Progress Note Date: 09/06/23 Celeste Haines, is a 78-year-old female patient of Dr. Turner presented with complaints of acute nausea vomiting and abdominal pain that has been occurring over the past week. Patient reports his symptoms started last Thursday. Patient reports minimum bowel movements. Abdomen is distended and firm. Patient has a past medical history of previous bowel obstructions and history of sigmoid bowel resection, hiatal hernia repair and cholecystectomy. Additional medical history includes GERD, hyperlipidemia, hypertension, arthritis, thyroid disorder, pancreatitis, degenerative disc disease.CT of abdomen and pelvis completed in ER showing small bowel obstruction unchanged cystic structure with the head of the pancreas is favored to be benign was evaluated by MRI and 11/18/2022. This time patient has been admitted to surgical services NG tube placed. Patient started on IV Protonix. Currently nothing by mouth. Patient reports improvement with abdominal discomfort. Current vital signs temp 97.4, heart 58, blood pressure 112/92 with pulse ox 97% on room air On 09/05/2023 patient was seen and examined on the medical floor, she is alert and oriented 3 in no apparent distress NG tube is still in. abdominal pain is improving there is no nausea or vomiting no abdominal distention patient did not have any flatus or any bowel movements yet. Otherwise patient denies any complaints there is no fever or chills no headache or dizziness no chest pain no shortness of breath no cough and no urinary symptoms. On 09/06/2023 patient is alert and oriented 3. Repeat CT has been ordered per surgical services. Patient remains with NG tube. Nothing by mouth at this time. Patient is eager to have diet. Awaiting surgical recommendations. Current vital signs temp 98.0, heart rate 63, respiratory rate 18, blood pressure 151/67 with a pulse ox of 98% on room Objective - Vital Signs Vital signs: Vital Signs Temp 98.0 F 09/06/23 07:07 Pulse 63 09/06/23 07:35 Resp 18 09/06/23 07:35 BP 151/67 09/06/23 07:07 Pulse Ox 98 09/06/23 07:07 FiO2 Intake & Output 09/05/23 09/06/23 09/06/23 18:59 06:59 18:59 Other: # Voids 3 2 1 - Exam In general patient is alert and oriented 3 in no apparent distress Head normocephalic and atraumatic Neck supple no JVD no goiter Lungs clear to auscultation bilaterally no wheezing or crackles Heart regular rate and rhythm S1-S2, no rub or gallop Abdomen slightly distended tender to touch Extremities no edema Neuro no gross focal deficits - Labs CBC & Chem 7: 09/06/23 07:21 09/05/23 07:26 Labs: Abnormal Lab Results - Last 24 Hours (Table) 09/06/23 Range/Units 07:21 Lymphocytes # 0.8 L (1.0-4.8) k/uL Assessment and Plan Assessment: 1. Nausea vomiting abdominal pain secondary to small bowel obstruction 2. Recent history of small bowel obstructions 3. History of abdominal surgeries including resection 4. Elevated lactic acid. Patient is afebrile with no elevated white blood cell count continue to monitor. 5. History of GERD 6. History of hypo-thyroidism 7. History of hyperlipidemia 8. History of essential hypertension 9. History of degenerative disc disease Medications reviewed and reordered IV Synthroid at half dose ordered Repeat CT ordered for 09/06/2023 For DVT prophylaxis subcu heparin For GI prophylaxis IV Protonix Will continue to monitor closely
[2023-09-06] MEDS ORDERED: POTASSIUM CHLORIDE 20 MEQ in WATER FOR INJECTION 1 100ML.BAG IVPB ONE (12:00)
[2023-09-06] MEDS: SODIUM CHLORIDE 0.9% 1,000 ML IV SCH ×2 (12:26→23:37)
--- NOTE | 2023-09-06 15:21 | CT ---
EXAMINATION TYPE: CT abdomen pelvis w con DATE OF EXAM: 09/06/2023 COMPARISON: 09/03/2023 INDICATION: follow up on SBO DLP: 530.8 mGycm, Automated exposure control for dose reduction was used. CONTRAST: 100 mL of Isovue 300. Study performed with Oral Contrast TECHNIQUE: Axial images were obtained from above the diaphragm to the pubic rami in the axial plane a t 5 mm thick sections. Reconstructed images are reviewed on the computer in the coronal plane. FINDINGS: Limited CT sections are obtained the lung bases. The lung bases are clear. Small hiatal hernia is p resent. Contrast within the hernia. CT ABDOMEN: There are multiple air and contrast-filled small bowel loops with air-fluid levels. This extends to the pelvis. Distalmost small bowel loops are decompressed. Partial small bowel obstruction should be considered. Findings appear similar to comparison. Differential could include ileus. Loops of colon visualized appear normal. Anastomosis within the sigmoid colon appears patent. Liver: Normal Spleen: Normal Pancreas: Normal Adrenal glands: The adrenal glands are normal. Gallbladder: Surgically absent. Common bile duct appears prominent to the pancreatic head. Kidneys: No masses are evident. No hydronephrosis is present. No cysts are present. Aorta: Vascular calcification is within the aorta. Inferior vena cava: Normal. CT PELVIS: Appendix: Not identified. No dilated tubular structure or inflammatory change is evident. Urinary bladder: Normal. Genitourinary structures: Uterus and ovaries are not identified. Osseous structures: No suspicious lytic or sclerotic lesions. Fixation screws are within the lower gianluca mbar facets. IMPRESSION: 1. Dilated contrast-filled small bowel loops to the distal small bowel. Partial obstruction may yvette in present. Findings appear stable from the comparison of 09/03/2023. Air and fecal debris remained w ithin the colon.
[2023-09-06] MEDS: 1: MVI, ADULT NO.4 WITH VIT K 10 ML, TRACE (CONC-1ML/DOSE) 1 ML in AMINO ACID 5%-D15W+LY IV SCH ×6 (15:42→22:46)
--- NOTE | 2023-09-06 17:09 | P.PN ---
Subjective Progress Note Date: 09/06/23 She denies abdominal pain. CT demonstrates persistent bowel obstruction. She is passing flatus. NG tube bilious. TPN advised. Objective - Vital Signs Vital signs: Vital Signs Temp 98.2 F 09/06/23 13:57 Pulse 59 L 09/06/23 13:57 Resp 17 09/06/23 13:57 BP 134/72 09/06/23 13:57 Pulse Ox 98 09/06/23 13:57 FiO2 Intake & Output 09/05/23 09/06/23 09/06/23 18:59 06:59 18:59 Intake Total 1011 Balance 1011 Intake: Intake, IV Titration 1011 Amount Mvi, Adult No.4 with Vit 1011 K 10 ml Trace (Conc-1Ml/ Dose) 1 ml In Amino Acid 5%-D15w+Lytes*E* 1,000 ml @ 64 mls/hr IV .BY DURATION YULY Rx#: [id number] Other: # Voids 3 2 1 - Labs CBC & Chem 7: 09/06/23 07:21 09/06/23 07:21 Labs: Abnormal Lab Results - Last 24 Hours (Table) 09/06/23 09/06/23 Range/Units 07:21 07:21 Lymphocytes # 0.8 L (1.0-4.8) k/uL Sodium 136 L (137-145) mmol/L Potassium 3.3 L (3.5-5.1) mmol/L BUN 34 H (7-17) mg/dL Glucose 160 H (74-99) mg/dL Calcium 7.9 L (8.4-10.2) mg/dL AST 76 H (14-36) U/L ALT 49 H (4-34) U/L Total Protein 5.1 L (6.3-8.2) g/dL Albumin 2.8 L (3.5-5.0) g/dL
[2023-09-07] MEDS: 1: MVI, ADULT NO.4 WITH VIT K 10 ML, TRACE (CONC-1ML/DOSE) 1 ML in AMINO ACID 5%-D15W+LY IV SCH ×3 (06:33)
[2023-09-07 07:41] LABS: African American GFR (CKD) >90 (>60 ml/min/1.73 sqM); Anion Gap 7 mmol/L; Blood Urea Nitrogen 29 mg/dL (7-17); Calcium 7.6 mg/dL (8.4-10.2); Carbon Dioxide 21 mmol/L (22-30); Chloride 108 mmol/L (98-107); Glucose 137 mg/dL (74-99); Non-African American GFR(CKD) >90 (>60 ml/min/1.73 sqM); Phosphorus 3.3 mg/dL (2.5-4.5); Potassium 3.5 mmol/L (3.5-5.1); Sodium 136 mmol/L (137-145)
[2023-09-07] MEDS: HEPARIN SODIUM,PORCINE 5,000 UNIT/ML 1 ML VIAL SQ SCH ×2 (09:07→20:04)
[2023-09-07] MEDS: LEVOTHYROXINE IVP 100 MCG/5 ML VIAL IV SCH (09:52)
[2023-09-07] MEDS: PANTOPRAZOLE 40 MG/10 ML VIAL IVP SCH (09:52)
--- NOTE | 2023-09-07 10:32 | XR ---
EXAMINATION TYPE: XR chest 1V DATE OF EXAM: 09/07/2023 10:21 AM CLINICAL INDICATION:Female, 78 years old with history of NG tube advancement; [facility] COMPARISON: Chest radiographs from 09/05/2023. TECHNIQUE: XR chest 1V Frontal view of the chest. FINDINGS: Lungs/Pleura: There is no evidence of pleural effusion, focal consolidation, or pneumothorax. Pulmonary vascularity: Unremarkable. Heart/mediastinum: Cardiomediastinal silhouette is unremarkable. Musculoskeletal: No acute osseous pathology. Other findings: None Lines/Tubes: Nasogastric tube with its distal tip and side-port projecting under the diaphragm. Left-sided PICC with distal tip at the superior vena cava/brachiocephalic confluence. IMPRESSION: 1. Nasogastric tube appears in satisfactory position. 2. COPD changes. 3. Left PICC with tip in appropriate position.
[2023-09-07] MEDS: POTASSIUM CHLORIDE 20 MEQ in WATER FOR INJECTION 1 100ML.BAG IVPB SCH ×2 (11:27→13:02)
[2023-09-07] MEDS: SODIUM CHLORIDE 0.9% 1,000 ML IV SCH (11:28)
--- NOTE | 2023-09-07 15:07 | P.PN ---
Subjective Progress Note Date: 09/07/23 CHIEF COMPLAINT: Abdominal pain HISTORY OF PRESENT ILLNESS: Patient lying in bed comfortably. Patient had multiple bowel movements last night and a bowel movement on Thursday. She denies any nausea or vomiting. She reports her pain is improving in her abdomen is less distended. Afebrile. Computed tomography scan abdomen and pelvis from yesterday dilated contrast filled small bowel loops to the distal small bowel. Partial obstruction may remain present. Findings appear stable for comparison on 09/03/2023. Air and fecal debris remain within the colon. Sodium 136 potassium 3.5 creatinine 0.52. No output from NG tube PHYSICAL EXAM: VITAL SIGNS: Reviewed. GENERAL: Well-developed in no acute distress. ABDOMEN: Softer. Less distended. Minimal discomfort with palpation of lower abdomen. NEUROLOGIC: Alert and oriented. Cranial nerves II through XII grossly intact. ASSESSMENT: 1. Small bowel obstruction 2. History of abdominal surgeries 3. History of prior small bowel obstructions 4. Elevated lactic acid improved with fluids PLAN: -Discontinue NG tube -Start clear liquid diet -Continue TPN until oral intake increases -Encouraged patient to increase activity level -Consult PT -Continue IV fluids -Continue supportive care -DVT prophylaxis subcu heparin Physician [facility] Nurse Practitioner note has been reviewed by physician. Signing provider agrees with the documented findings, assessment, and plan of care. Objective - Vital Signs Vital signs: Vital Signs Temp 98.2 F 09/07/23 07:15 Pulse 64 09/07/23 07:15 Resp 18 09/07/23 07:15 BP 144/63 09/07/23 07:15 Pulse Ox 97 09/07/23 07:15 FiO2 Intake & Output 09/06/23 09/07/23 09/07/23 18:59 06:59 18:59 Intake Total 1011 950.4 Balance 1011 950.4 Intake: Intake, IV Titration 1011 950.4 Amount Mvi, Adult No.4 with Vit 1011 950.4 K 10 ml Trace (Conc-1Ml/ Dose) 1 ml In Amino Acid 5%-D15w+Lytes*E* 1,000 ml @ 64 mls/hr IV .BY DURATION YULY Rx#: [id number] Other: Voiding Method Toilet # Voids 4 2 # Bowel Movements 3 - Labs CBC & Chem 7: 09/06/23 07:21 09/07/23 05:38 Labs: Abnormal Lab Results - Last 24 Hours (Table) 09/07/23 Range/Units 05:38 Sodium 136 L (137-145) mmol/L Chloride 108 H (98-107) mmol/L Carbon Dioxide 21 L (22-30) mmol/L BUN 29 H (7-17) mg/dL Glucose 137 H (74-99) mg/dL Calcium 7.6 L (8.4-10.2) mg/dL
[2023-09-07] MEDS: FAT EMULSION 20% 250 ML IV SCH (16:42)
[2023-09-07 17:10] LABS: Glucose,Whole Blood 116 mg/dL (70-110)
--- NOTE | 2023-09-07 17:24 | P.PN ---
Subjective Progress Note Date: 09/07/23 Celeste Haines, is a 78-year-old female patient of Dr. Turner presented with complaints of acute nausea vomiting and abdominal pain that has been occurring over the past week. Patient reports his symptoms started last Thursday. Patient reports minimum bowel movements. Abdomen is distended and firm. Patient has a past medical history of previous bowel obstructions and history of sigmoid bowel resection, hiatal hernia repair and cholecystectomy. Additional medical history includes GERD, hyperlipidemia, hypertension, arthritis, thyroid disorder, pancreatitis, degenerative disc disease.CT of abdomen and pelvis completed in ER showing small bowel obstruction unchanged cystic structure with the head of the pancreas is favored to be benign was evaluated by MRI and 11/18/2022. This time patient has been admitted to surgical services NG tube placed. Patient started on IV Protonix. Currently nothing by mouth. Patient reports improvement with abdominal discomfort. Current vital signs temp 97.4, heart 58, blood pressure 112/92 with pulse ox 97% on room air On 09/05/2023 patient was seen and examined on the medical floor, she is alert and oriented 3 in no apparent distress NG tube is still in. abdominal pain is improving there is no nausea or vomiting no abdominal distention patient did not have any flatus or any bowel movements yet. Otherwise patient denies any complaints there is no fever or chills no headache or dizziness no chest pain no shortness of breath no cough and no urinary symptoms. On 09/06/2023 patient is alert and oriented 3. Repeat CT has been ordered per surgical services. Patient remains with NG tube. Nothing by mouth at this time. Patient is eager to have diet. Awaiting surgical recommendations. Current vital signs temp 98.0, heart rate 63, respiratory rate 18, blood pressure 151/67 with a pulse ox of 98% on room On 09/07/2023 patient was seen and examined on the medical floor she is alert and oriented 3 in no apparent distress. There is no fever or chills no headache or dizziness no chest pain no shortness of breath no cough no nausea or vomiting no abdominal pain no diarrhea and no urinary symptoms. NG tube was removed today by surgical services, patient was started on clear liquid diet, she is tolerating well at this time, will start physical therapy, will continue to monitor closely. Objective - Vital Signs Vital signs: Vital Signs Temp 98.2 F 09/07/23 07:15 Pulse 64 12/04/23 07:15 Resp 18 09/07/23 07:15 BP 144/63 09/07/23 07:15 Pulse Ox 97 09/07/23 07:15 FiO2 Intake & Output 09/06/23 09/07/23 09/07/23 18:59 06:59 18:59 Intake Total 1011 950.4 Balance 1011 950.4 Intake: Intake, IV Titration 1011 950.4 Amount Mvi, Adult No.4 with Vit 1011 950.4 K 10 ml Trace (Conc-1Ml/ Dose) 1 ml In Amino Acid 5%-D15w+Lytes*E* 1,000 ml @ 64 mls/hr IV .BY DURATION YULY Rx#: [id number] Other: Voiding Method Toilet # Voids 4 2 # Bowel Movements 3 - Exam In general patient is alert and oriented 3 in no apparent distress Head normocephalic and atraumatic Neck supple no JVD no goiter Lungs clear to auscultation bilaterally no wheezing or crackles Heart regular rate and rhythm S1-S2, no rub or gallop Abdomen slightly distended tender to touch Extremities no edema Neuro no gross focal deficits - Labs CBC & Chem 7: 09/06/23 07:21 09/07/23 16:48 Labs: Abnormal Lab Results - Last 24 Hours (Table) 09/07/23 Range/Units 05:38 Sodium 136 L (137-145) mmol/L Chloride 108 H (98-107) mmol/L Carbon Dioxide 21 L (22-30) mmol/L BUN 29 H (7-17) mg/dL Glucose 137 H (74-99) mg/dL Calcium 7.6 L (8.4-10.2) mg/dL Assessment and Plan Assessment: 1. Nausea vomiting abdominal pain secondary to small bowel obstruction 2. Recent history of small bowel obstructions 3. History of abdominal surgeries including resection 4. Elevated lactic acid. Patient is afebrile with no elevated white blood cell count continue to monitor. 5. History of GERD 6. History of hypo-thyroidism 7. History of hyperlipidemia 8. History of essential hypertension 9. History of degenerative disc disease Medications reviewed and reordered IV Synthroid at half dose ordered For DVT prophylaxis subcu heparin For GI prophylaxis IV Protonix Will continue to monitor closely
[2023-09-08] MEDS: SODIUM CHLORIDE 0.9% 1,000 ML IV SCH (00:13)
[2023-09-08 07:16] LABS: Phosphorus 3.8 mg/dL (2.5-4.5)
[2023-09-08] MEDS: PANTOPRAZOLE 40 MG/10 ML VIAL IVP SCH (07:54)
[2023-09-08] MEDS: HEPARIN SODIUM,PORCINE 5,000 UNIT/ML 1 ML VIAL SQ SCH ×2 (07:55→20:04)
[2023-09-08] MEDS: LEVOTHYROXINE 100 MCG TAB PO SCH (08:03)
--- NOTE | 2023-09-08 09:40 | P.PN ---
Subjective Progress Note Date: 09/08/23 Celeste Haines, is a 78-year-old female patient of Dr. Turner presented with complaints of acute nausea vomiting and abdominal pain that has been occurring over the past week. Patient reports his symptoms started last Thursday. Patient reports minimum bowel movements. Abdomen is distended and firm. Patient has a past medical history of previous bowel obstructions and history of sigmoid bowel resection, hiatal hernia repair and cholecystectomy. Additional medical history includes GERD, hyperlipidemia, hypertension, arthritis, thyroid disorder, pancreatitis, degenerative disc disease.CT of abdomen and pelvis completed in ER showing small bowel obstruction unchanged cystic structure with the head of the pancreas is favored to be benign was evaluated by MRI and 11/18/2022. This time patient has been admitted to surgical services NG tube placed. Patient started on IV Protonix. Currently nothing by mouth. Patient reports improvement with abdominal discomfort. Current vital signs temp 97.4, heart 58, blood pressure 112/92 with pulse ox 97% on room air On 09/05/2023 patient was seen and examined on the medical floor, she is alert and oriented 3 in no apparent distress NG tube is still in. abdominal pain is improving there is no nausea or vomiting no abdominal distention patient did not have any flatus or any bowel movements yet. Otherwise patient denies any complaints there is no fever or chills no headache or dizziness no chest pain no shortness of breath no cough and no urinary symptoms. On 09/06/2023 patient is alert and oriented 3. Repeat CT has been ordered per surgical services. Patient remains with NG tube. Nothing by mouth at this time. Patient is eager to have diet. Awaiting surgical recommendations. Current vital signs temp 98.0, heart rate 63, respiratory rate 18, blood pressure 151/67 with a pulse ox of 98% on room On 09/07/2023 patient was seen and examined on the medical floor she is alert and oriented 3 in no apparent distress. There is no fever or chills no headache or dizziness no chest pain no shortness of breath no cough no nausea or vomiting no abdominal pain no diarrhea and no urinary symptoms. NG tube was removed today by surgical services, patient was started on clear liquid diet, she is tolerating well at this time, will start physical therapy, will continue to monitor closely. On 09/08/2023 patient is alert and oriented 3. Patient tolerating clear liquid diet. Awaiting further recommendations from surgical services. Awaiting further recommendations from surgical services. She remains on TPN. Current vital signs temp 98.3 heart rate 64, respiratory rate 16, blood pressure 126/52 with pulse ox of 97% on room air Objective - Vital Signs Vital signs: Vital Signs Temp 98.3 F 09/08/23 07:12 Pulse 55 L 09/08/23 07:12 Resp 18 09/08/23 07:12 BP 126/57 09/08/23 07:12 Pulse Ox 96 09/08/23 07:12 FiO2 Intake & Output 09/07/23 09/08/23 09/08/23 18:59 06:59 18:59 Intake Total 2181 Output Total 100 Balance 2081 Weight 49.895 kg Intake: IV 900 Sodium Chloride 0.9% 1, 900 000 ml @ 75 mls/hr IV . [id number] [facility] Rx#:[id number] Intake, IV Titration 200 Amount Potassium Chloride 20 meq 200 In Water For Injection 1 100ml.bag @ 50 mls/hr IVPB Q2H [facility] Rx#: [id number] Oral 250 TPN/PPN 768 Sodium Chloride 0.9% 1, 768 000 ml @ 75 mls/hr IV . [id number] [facility] Rx#:[id number] Lipid 63 Sodium Chloride 0.9% 1, 63 000 ml @ 75 mls/hr IV . [id number] [facility] Rx#:[id number] Output: Urine 100 Other: Voiding Method Toilet # Voids 5 # Bowel Movements 1 - Exam In general patient is alert and oriented 3 in no apparent distress Head normocephalic and atraumatic Neck supple no JVD no goiter Lungs clear to auscultation bilaterally no wheezing or crackles Heart regular rate and rhythm S1-S2, no rub or gallop Abdomen slightly distended tender to touch Extremities no edema Neuro no gross focal deficits - Labs CBC & Chem 7: 09/06/23 07:21 09/07/23 16:48 Labs: Abnormal Lab Results - Last 24 Hours (Table) 09/07/23 Range/Units 17:09 POC Glucose (mg/dL) 116 H (70-110) mg/dL Assessment and Plan Assessment: 1. Nausea vomiting abdominal pain secondary to small bowel obstruction 2. Recent history of small bowel obstructions 3. History of abdominal surgeries including resection 4. Elevated lactic acid. Patient is afebrile with no elevated white blood cell count continue to monitor. 5. History of GERD 6. History of hypo-thyroidism 7. History of hyperlipidemia 8. History of essential hypertension 9. History of degenerative disc disease Medications reviewed and reordered IV Synthroid at half dose ordered For DVT prophylaxis subcu heparin For GI prophylaxis IV Protonix Will continue to monitor closely
[2023-09-08 10:59] LABS: Basophils # (A) 0.03 X 10*3/uL (0.00-0.10); Basophils % (A) 0.5 %; Eosinophils # (A) 0.31 X 10*3/uL (0.04-0.35); Eosinophils % (A) 5.2 %; HCT 29.2 % (37.2-46.3); HGB 9.4 g/dL (12.0-15.0); Lymphocytes # (A) 1.45 X 10*3/uL (0.90-5.00); Lymphocytes % (A) 24.5 %; MCH 28.2 pg (27.0-32.0); MCHC 32.2 g/dL (32.0-37.0); MCV 87.7 FL (80.0-97.0); Mean Platelet Volume 10.5 FL (9.5-12.2); Monocytes # (A) 0.69 X 10*3/uL (0.20-1.00); Monocytes % (A) 11.7 %; NRBC Per 100 WBC 0 X 10*3/uL (0.00-0.01); Neutrophils # (A) 3.31 X 10*3/uL (1.80-7.70); Neutrophils % (A) 55.9 %; Platelet Count 156 X 10*3/uL (140-440); RBC 3.33 X 10*6/uL (4.10-5.20); RDW 13.8 % (11.5-14.5); WBC 5.92 X 10*3/uL (4.50-10.00)
[2023-09-08 11:45] LABS: ALT 17 U/L (8-44); AST 12 U/L (13-35); Albumin 2.7 g/dL (3.8-4.9); Albumin/Globulin Ratio 1.69 Ratio (1.60-3.17); Alkaline Phosphatase 85 U/L (41-126); BUN/Creat Ratio 37.33 Ratio (12.00-20.00); Blood Urea Nitrogen 22.4 mg/dL (9.0-27.0); Calcium 8.1 mg/dL (8.7-10.3); Carbon Dioxide 21.4 mmol/L (21.6-31.8); Chloride 109 mmol/L (96-109); Globulin 1.6 g/dL (1.6-3.3); Glucose 159 mg/dL (70-110); Potassium 4.2 mmol/L (3.5-5.5); Sodium 139 mmol/L (135-145); Total Bilirubin 0.2 mg/dL (0.3-1.2); Total Protein 4.3 g/dL (6.2-8.2)
--- NOTE | 2023-09-08 11:57 | P.PN ---
Subjective Progress Note Date: 09/08/23 CHIEF COMPLAINT: Abdominal pain HISTORY OF PRESENT ILLNESS: Patient lying in bed comfortably. Patient reports having bowel movements. She denies any nausea or vomiting. She is tolerating the clear liquids. Afebrile. WBC 5.9 to Hgb 9.4 platelets 156 PHYSICAL EXAM: VITAL SIGNS: Reviewed. GENERAL: Well-developed in no acute distress. ABDOMEN: Soft. Nondistended nontender. NEUROLOGIC: Alert and oriented. Cranial nerves II through XII grossly intact. ASSESSMENT: 1. Partial Small bowel obstruction resolved with conservative management 2. History of abdominal surgeries 3. History of prior small bowel obstructions 4. Elevated lactic acid improved with fluids PLAN: -Advance diet to full liquids -Continue TPN until oral intake increases -Discontinue IV fluid -Encouraged patient to increase activity level -Continue supportive care -DVT prophylaxis subcu heparin Physician Freight Traffic Consultant note has been reviewed by physician. Signing provider agrees with the documented findings, assessment, and plan of care. Objective - Vital Signs Vital signs: Vital Signs Temp 98.3 F 09/08/23 07:12 Pulse 55 L 09/08/23 07:12 Resp 18 09/08/23 07:12 BP 126/57 09/08/23 07:12 Pulse Ox 96 09/08/23 07:12 FiO2 Intake & Output 09/07/23 09/08/23 09/08/23 18:59 06:59 18:59 Intake Total 2181 Output Total 100 Balance 2081 Weight 49.895 kg Intake: IV 900 Sodium Chloride 0.9% 1, 900 000 ml @ 75 mls/hr IV . [id number] [facility] Rx#:[id number] Intake, IV Titration 200 Amount Potassium Chloride 20 meq 200 In Water For Injection 1 100ml.bag @ 50 mls/hr IVPB Q2H [facility] Rx#: [id number] Oral 250 TPN/PPN 768 Sodium Chloride 0.9% 1, 768 000 ml @ 75 mls/hr IV . [id number] [facility] Rx#:[id number] Lipid 63 Sodium Chloride 0.9% 1, 63 000 ml @ 75 mls/hr IV . [id number] [facility] Rx#:[id number] Output: Urine 100 Other: Voiding Method Toilet # Voids 5 # Bowel Movements 1 - Labs CBC & Chem 7: 09/08/23 06:15 09/08/23 06:15 Labs: Abnormal Lab Results - Last 24 Hours (Table) 09/07/23 Range/Units 17:09 POC Glucose (mg/dL) 116 H (70-110) mg/dL
[2023-09-09] MEDS: LEVOTHYROXINE 100 MCG TAB PO SCH (05:39)
[2023-09-09] MEDS: PANTOPRAZOLE 40 MG/10 ML VIAL IVP SCH (07:55)
[2023-09-09] MEDS: HEPARIN SODIUM,PORCINE 5,000 UNIT/ML 1 ML VIAL SQ SCH ×2 (07:55→20:08)
[2023-09-09 09:40] LABS: HCT 32.7 % (34.0-46.0); HGB 10.6 gm/dL (11.4-16.0); Hypochromasia Slight; MCH 29.8 pg (25.0-35.0); MCHC 32.4 g/dL (31.0-37.0); MCV 91.9 fL (80.0-100.0); Platelet Count 160 k/uL (150-450); RBC 3.56 m/uL (3.80-5.40); RDW 14.1 % (11.5-15.5); WBC 6.7 k/uL (3.8-10.6)
[2023-09-09 10:06] LABS: African American GFR (CKD) >90 (>60 ml/min/1.73 sqM); Anion Gap 8 mmol/L; Blood Urea Nitrogen 28 mg/dL (7-17); Calcium 8.1 mg/dL (8.4-10.2); Carbon Dioxide 22 mmol/L (22-30); Chloride 106 mmol/L (98-107); Glucose 126 mg/dL (74-99); Non-African American GFR(CKD) 88 (>60 ml/min/1.73 sqM); Phosphorus 3.9 mg/dL (2.5-4.5); Potassium 4.3 mmol/L (3.5-5.1); Sodium 136 mmol/L (137-145)
--- NOTE | 2023-09-09 10:28 | P.PN ---
Subjective Progress Note Date: 09/09/23 Celeste Haines, is a 78-year-old female patient of Dr. Turner presented with complaints of acute nausea vomiting and abdominal pain that has been occurring over the past week. Patient reports his symptoms started last Thursday. Patient reports minimum bowel movements. Abdomen is distended and firm. Patient has a past medical history of previous bowel obstructions and history of sigmoid bowel resection, hiatal hernia repair and cholecystectomy. Additional medical history includes GERD, hyperlipidemia, hypertension, arthritis, thyroid disorder, pancreatitis, degenerative disc disease.CT of abdomen and pelvis completed in ER showing small bowel obstruction unchanged cystic structure with the head of the pancreas is favored to be benign was evaluated by MRI and 11/18/2022. This time patient has been admitted to surgical services NG tube placed. Patient started on IV Protonix. Currently nothing by mouth. Patient reports improvement with abdominal discomfort. Current vital signs temp 97.4, heart 58, blood pressure 112/92 with pulse ox 97% on room air On 09/05/2023 patient was seen and examined on the medical floor, she is alert and oriented 3 in no apparent distress NG tube is still in. abdominal pain is improving there is no nausea or vomiting no abdominal distention patient did not have any flatus or any bowel movements yet. Otherwise patient denies any complaints there is no fever or chills no headache or dizziness no chest pain no shortness of breath no cough and no urinary symptoms. On 09/06/2023 patient is alert and oriented 3. Repeat CT has been ordered per surgical services. Patient remains with NG tube. Nothing by mouth at this time. Patient is eager to have diet. Awaiting surgical recommendations. Current vital signs temp 98.0, heart rate 63, respiratory rate 18, blood pressure 151/67 with a pulse ox of 98% on room On 09/07/2023 patient was seen and examined on the medical floor she is alert and oriented 3 in no apparent distress. There is no fever or chills no headache or dizziness no chest pain no shortness of breath no cough no nausea or vomiting no abdominal pain no diarrhea and no urinary symptoms. NG tube was removed today by surgical services, patient was started on clear liquid diet, she is tolerating well at this time, will start physical therapy, will continue to monitor closely. On 09/08/2023 patient is alert and oriented 3. Patient tolerating clear liquid diet. Awaiting further recommendations from surgical services. Awaiting further recommendations from surgical services. She remains on TPN. Current vital signs temp 98.3 heart rate 64, respiratory rate 16, blood pressure 126/52 with pulse ox of 97% on room air On 09/09/2023 patient alert and oriented 3. Diet has been advanced to full liquid. Patient remains on TPN. Per nursing staff plan per surgical services is to continue TPN until oral intake increases. Patient denies chest pain or shortness of breath. Patient denies nausea vomiting or diarrhea. Patient denies any urinary burning or frequency Objective - Vital Signs Vital signs: Vital Signs Temp 97.8 F 09/09/23 08:00 Pulse 65 09/09/23 08:00 Resp 18 09/09/23 08:00 BP 111/66 09/09/23 08:00 Pulse Ox 98 09/09/23 08:00 FiO2 Intake & Output 09/08/23 09/09/23 09/09/23 18:59 06:59 18:59 Intake Total 955 Balance 955 Intake: Intake, IV Titration 955 Amount Sodium Acetate 20 meq 955 Potassium Acetate 10 meq In Amino Acid 5%-D15w+ Lytes*E* 1,000 ml @ 64 mls/hr IV .BY DURATION [facility] Rx#:[id number] Other: Voiding Method Toilet Toilet # Voids 8 2 # Bowel Movements 1 - Exam In general patient is alert and oriented 3 in no apparent distress Head normocephalic and atraumatic Neck supple no JVD no goiter Lungs clear to auscultation bilaterally no wheezing or crackles Heart regular rate and rhythm S1-S2, no rub or gallop Abdomen slightly distended tender to touch Extremities no edema Neuro no gross focal deficits - Labs CBC & Chem 7: 09/09/23 08:48 09/09/23 08:48 Labs: Abnormal Lab Results - Last 24 Hours (Table) 09/08/23 09/08/23 09/09/23 Range/Units 06:15 06:15 08:48 RBC 3.33 L 3.56 L (4.10-5.20) X 10*6/uL Hgb 9.4 L 10.6 L (12.0-15.0) g/dL Hct 29.2 L 32.7 L (37.2-46.3) % Sodium (137-145) mmol/L Carbon Dioxide 21.4 L (21.6-31.8) mmol/L BUN (7-17) mg/dL BUN/Creatinine Ratio 37.33 H (12.00-20.00) Ratio Glucose 159 H (70-110) mg/dL Calcium 8.1 L (8.7-10.3) mg/dL Total Bilirubin 0.2 L (0.3-1.2) mg/dL AST 12 L (13-35) U/L Total Protein 4.3 L (6.2-8.2) g/dL Albumin 2.7 L (3.8-4.9) g/dL 09/09/23 Range/Units 08:48 RBC (4.10-5.20) X 10*6/uL Hgb (12.0-15.0) g/dL Hct (37.2-46.3) % Sodium 136 L (137-145) mmol/L Carbon Dioxide (21.6-31.8) mmol/L BUN 28 H (7-17) mg/dL BUN/Creatinine Ratio (12.00-20.00) Ratio Glucose 126 H (70-110) mg/dL Calcium 8.1 L (8.7-10.3) mg/dL Total Bilirubin (0.3-1.2) mg/dL AST (13-35) U/L Total Protein (6.2-8.2) g/dL Albumin (3.8-4.9) g/dL Assessment and Plan Assessment: 1. Nausea vomiting abdominal pain secondary to small bowel obstruction 2. Recent history of small bowel obstructions 3. History of abdominal surgeries including resection 4. Elevated lactic acid. Patient is afebrile with no elevated white blood cell count continue to monitor. 5. History of GERD 6. History of hypo-thyroidism 7. History of hyperlipidemia 8. History of essential hypertension 9. History of degenerative disc disease Medications reviewed and reordered IV Synthroid at half dose ordered For DVT prophylaxis subcu heparin For GI prophylaxis IV Protonix Patient maintained on IV TPN Will continue to monitor closely
--- NOTE | 2023-09-09 11:35 | P.PN ---
Subjective Progress Note Date: 09/09/23 CHIEF COMPLAINT: Abdominal pain HISTORY OF PRESENT ILLNESS: Patient lying in bed comfortably. Patient denies any abdominal pain. She is having bowel movements. Denies any nausea or vomiting. She was able to eat all of her oatmeal this morning. Afebrile. Wbc 6.7 HGB 10.6 Plt 160 Na 136 K 4.3 cr 0.59 PHYSICAL EXAM: VITAL SIGNS: Reviewed. GENERAL: Well-developed in no acute distress. ABDOMEN: Soft. Mildly distended. nontender. NEUROLOGIC: Awake and alert ASSESSMENT: 1. Partial Small bowel obstruction resolving with conservative management 2. History of abdominal surgeries 3. History of prior small bowel obstructions 4. Elevated lactic acid improved with fluids PLAN: -Continue full liquid diet -Plan to wean TPN off today if patient's oral intake continues to improve -Encourage patient to ambulate. Physical therapy on consult -Continue supportive care -DVT prophylaxis subcu heparin Physician Boat Rental Clerk note has been reviewed by physician. Signing provider agrees with the documented findings, assessment, and plan of care. Objective - Vital Signs Vital signs: Vital Signs Temp 97.8 F 09/09/23 08:00 Pulse 65 09/09/23 08:00 Resp 18 09/09/23 08:00 BP 111/66 09/09/23 08:00 Pulse Ox 98 09/09/23 08:00 FiO2 Intake & Output 09/08/23 09/09/23 09/09/23 18:59 06:59 18:59 Intake Total 955 Balance 955 Intake: Intake, IV Titration 955 Amount Sodium Acetate 20 meq 955 Potassium Acetate 10 meq In Amino Acid 5%-D15w+ Lytes*E* 1,000 ml @ 64 mls/hr IV .BY DURATION [facility] Rx#:[id number] Other: Voiding Method Toilet # Voids 8 2 # Bowel Movements 1 - Labs CBC & Chem 7: 09/09/23 08:48 09/09/23 08:48 Labs: Abnormal Lab Results - Last 24 Hours (Table) 09/08/23 09/08/23 Range/Units 06:15 06:15 RBC 3.33 L (4.10-5.20) X 10*6/uL Hgb 9.4 L (12.0-15.0) g/dL Hct 29.2 L (37.2-46.3) % Carbon Dioxide 21.4 L (21.6-31.8) mmol/L BUN/Creatinine Ratio 37.33 H (12.00-20.00) Ratio Glucose 159 H (70-110) mg/dL Calcium 8.1 L (8.7-10.3) mg/dL Total Bilirubin 0.2 L (0.3-1.2) mg/dL AST 12 L (13-35) U/L Total Protein 4.3 L (6.2-8.2) g/dL Albumin 2.7 L (3.8-4.9) g/dL
--- NOTE | 2023-09-09 14:47 | P.DS ---
Providers Date of admission: 09/03/23 14:20 Expected date of discharge: 09/09/23 Attending physician: Deng Camara Consults: 09/03/23 14:19 Consult Physician Urgent Consulting Provider: Maria Eugenia Hooper Consult Reason/Comments: acute nausea and vomiting, acute sbo Do you want consulting provider notified?: Yes Primary care physician: Roxanna Lozano Hospital Course: Discharge diagnosis 1. Small bowel obstruction resolved with conservative management 2. History of abdominal surgeries 3. History of prior small bowel obstructions 4. Elevated lactic acid improved with fluids Hospital course This is a 78-year-old female presented to the hospital with complaints of abdominal pain with nausea and vomiting. Her computed tomography scan abdomen and pelvis had reported small bowel obstruction. Unchanged cystic structure within the head of the pancreas is favored to be benign. Patient had NG tube placed. Patient was managed conservatively with resolution of her small bowel obstruction. Patient is tolerating diet. She is having bowel movements. She has been up and ambulating. She is stable for discharge. Please refer to chart for any further details. Physician Carpet Floor Layer Apprentice note has been reviewed by physician. Signing provider agrees with the documented findings, assessment, and plan of care. Patient Condition at Discharge: Stable Plan - Discharge Summary New Discharge Prescriptions: Continue Oxybutynin Chloride [oxyBUTYnin chloride ER] 10 mg PO DAILY Donepezil [Aricept] 5 mg PO DAILY Aspirin EC [Ecotrin Low Dose] 81 mg PO DAILY amLODIPine [Norvasc] 2.5 mg PO DAILY Sertraline [Zoloft] 50 mg PO DAILY Levothyroxine Sodium [Synthroid] 100 mcg PO DAILY Rosuvastatin Calcium 5 mg PO DIRECTED Pantoprazole Sodium [Protonix] 40 mg PO DAILY risperiDONE [RisperDAL] 0.25 mg PO BID 30 Days #60 tab Discharge Medication List amLODIPine [Norvasc] 2.5 mg PO DAILY 05/17/21 [History] Aspirin EC [Ecotrin Low Dose] 81 mg PO DAILY 03/13/23 [History] Donepezil [Aricept] 5 mg PO DAILY 03/13/23 [History] Levothyroxine Sodium [Synthroid] 100 mcg PO DAILY 03/13/23 [History] Oxybutynin Chloride [oxyBUTYnin chloride ER] 10 mg PO DAILY 03/13/23 [History] Sertraline [Zoloft] 50 mg PO DAILY 03/13/23 [History] Pantoprazole Sodium [Protonix] 40 mg PO DAILY 07/16/23 [History] Rosuvastatin Calcium 5 mg PO DIRECTED 07/16/23 [History] risperiDONE [RisperDAL] 0.25 mg PO BID 30 Days #60 tab 07/18/23 [Rx] Follow up Appointment(s)/Referral(s): Roxanna Lozano MD [Primary Care Provider] - 1-2 Days [facility], [NON-STAFF] - 1-2 Days ([facility] will call you to schedule your in home nursing, physical therapy, and occupational therapy visits. ) Activity/Diet/Wound Care/Special Instructions: Advance diet as tolerated Discharge Disposition: HOME WITH HOME HEALTH SERVICES
[2023-09-10] MEDS: LEVOTHYROXINE 100 MCG TAB PO SCH (05:19)
[2023-09-10] MEDS: HEPARIN SODIUM,PORCINE 5,000 UNIT/ML 1 ML VIAL SQ SCH ×2 (08:17→20:30)
[2023-09-10] MEDS: PANTOPRAZOLE 40 MG/10 ML VIAL IVP SCH (08:17)
[2023-09-10 08:50] LABS: Basophils % (A) 1 %; Eosinophils # (A) 0.3 k/uL (0-0.7); Eosinophils % (A) 4 %; HCT 33.2 % (34.0-46.0); HGB 10.5 gm/dL (11.4-16.0); Hypochromasia Slight; Lymphocytes # (A) 1.7 k/uL (1.0-4.8); Lymphocytes % (A) 28 %; MCH 28.9 pg (25.0-35.0); MCHC 31.5 g/dL (31.0-37.0); MCV 91.5 fL (80.0-100.0); Mean Platelet Volume 8.8; Monocytes # (A) 0.4 k/uL (0-1.0); Monocytes % (A) 6 %; Neutrophils # (A) 3.8 k/uL (1.3-7.7); Neutrophils % (A) 60 %; Platelet Count 202 k/uL (150-450); RBC 3.63 m/uL (3.80-5.40); RDW 14.3 % (11.5-15.5); WBC 6.3 k/uL (3.8-10.6)
[2023-09-10 09:03] LABS: African American GFR (CKD) >90 (>60 ml/min/1.73 sqM); Anion Gap 9 mmol/L; Blood Urea Nitrogen 20 mg/dL (7-17); Calcium 8.4 mg/dL (8.4-10.2); Carbon Dioxide 23 mmol/L (22-30); Chloride 105 mmol/L (98-107); Glucose 117 mg/dL (74-99); Non-African American GFR(CKD) 84 (>60 ml/min/1.73 sqM); Phosphorus 4.5 mg/dL (2.5-4.5); Sodium 137 mmol/L (137-145)
[2023-09-10 09:07] LABS: Potassium 4.6 mmol/L (3.5-5.1)
--- NOTE | 2023-09-10 10:58 | P.PN ---
Subjective Progress Note Date: 09/10/23 CHIEF COMPLAINT: Abdominal pain HISTORY OF PRESENT ILLNESS: Patient lying in bed comfortably. Patient denies any abdominal pain. She is having bowel movements. Denies any nausea or vomiting. She is tolerating full liquids. TPN has been weaned off. Afebrile. WBC 6.3 PHYSICAL EXAM: VITAL SIGNS: Reviewed. GENERAL: Well-developed in no acute distress. ABDOMEN: Soft. Nondistended. nontender. NEUROLOGIC: Awake and alert ASSESSMENT: 1. Partial Small bowel obstruction resolved with conservative management 2. History of abdominal surgeries 3. History of prior small bowel obstructions 4. Elevated lactic acid improved with fluids PLAN: -Advance diet to low fiber -Patient was appointed a public guardian yesterday. Awaiting public guardian to review patient's case and decide on a safe discharge plan -Encouraged patient to ambulate -DVT prophylaxis subcu heparin Physician Pharmacist note has been reviewed by physician. Signing provider agrees with the documented findings, assessment, and plan of care. Objective - Vital Signs Vital signs: Vital Signs Temp 97.3 F L 09/10/23 07:07 Pulse 57 L 09/10/23 07:07 Resp 18 09/10/23 07:07 BP 148/66 09/10/23 07:07 Pulse Ox 98 09/10/23 07:07 FiO2 Intake & Output 09/09/23 09/10/23 09/10/23 18:59 06:59 18:59 Weight 49.895 kg Other: Voiding Method Toilet Toilet # Voids 3 - Labs CBC & Chem 7: 09/10/23 08:08 09/10/23 08:08 Labs: Abnormal Lab Results - Last 24 Hours (Table) 09/09/23 09/10/23 09/10/23 Range/Units 08:48 08:08 08:08 RBC 3.63 L (3.80-5.40) m/uL Hgb 10.5 L (11.4-16.0) gm/dL Hct 33.2 L (34.0-46.0) % Sodium 136 L (137-145) mmol/L BUN 28 H 20 H (7-17) mg/dL Glucose 126 H 117 H (74-99) mg/dL Calcium 8.1 L (8.4-10.2) mg/dL
--- NOTE | 2023-09-10 13:31 | P.PN ---
Subjective Progress Note Date: 09/10/23 Celeste Haines, is a 78-year-old female patient of Dr. Turner presented with complaints of acute nausea vomiting and abdominal pain that has been occurring over the past week. Patient reports his symptoms started last Thursday. Patient reports minimum bowel movements. Abdomen is distended and firm. Patient has a past medical history of previous bowel obstructions and history of sigmoid bowel resection, hiatal hernia repair and cholecystectomy. Additional medical history includes GERD, hyperlipidemia, hypertension, arthritis, thyroid disorder, pancreatitis, degenerative disc disease.CT of abdomen and pelvis completed in ER showing small bowel obstruction unchanged cystic structure with the head of the pancreas is favored to be benign was evaluated by MRI and 11/18/2022. This time patient has been admitted to surgical services NG tube placed. Patient started on IV Protonix. Currently nothing by mouth. Patient reports improvement with abdominal discomfort. Current vital signs temp 97.4, heart 58, blood pressure 112/92 with pulse ox 97% on room air On 09/05/2023 patient was seen and examined on the medical floor, she is alert and oriented 3 in no apparent distress NG tube is still in. abdominal pain is improving there is no nausea or vomiting no abdominal distention patient did not have any flatus or any bowel movements yet. Otherwise patient denies any complaints there is no fever or chills no headache or dizziness no chest pain no shortness of breath no cough and no urinary symptoms. On 09/06/2023 patient is alert and oriented 3. Repeat CT has been ordered per surgical services. Patient remains with NG tube. Nothing by mouth at this time. Patient is eager to have diet. Awaiting surgical recommendations. Current vital signs temp 98.0, heart rate 63, respiratory rate 18, blood pressure 151/67 with a pulse ox of 98% on room On 09/07/2023 patient was seen and examined on the medical floor she is alert and oriented 3 in no apparent distress. There is no fever or chills no headache or dizziness no chest pain no shortness of breath no cough no nausea or vomiting no abdominal pain no diarrhea and no urinary symptoms. NG tube was removed today by surgical services, patient was started on clear liquid diet, she is tolerating well at this time, will start physical therapy, will continue to monitor closely. On 09/08/2023 patient is alert and oriented 3. Patient tolerating clear liquid diet. Awaiting further recommendations from surgical services. Awaiting further recommendations from surgical services. She remains on TPN. Current vital signs temp 98.3 heart rate 64, respiratory rate 16, blood pressure 126/52 with pulse ox of 97% on room air On 09/09/2023 patient alert and oriented 3. Diet has been advanced to full liquid. Patient remains on TPN. Per nursing staff plan per surgical services is to continue TPN until oral intake increases. Patient denies chest pain or shortness of breath. Patient denies nausea vomiting or diarrhea. Patient denies any urinary burning or frequency On 09/10/2023 patient was seen and examined she is alert and oriented 3 in no apparent distress she is able to tolerate diet well, she states that she is having bowel movement and passing flatus, she is still having mild left lower quadrant abdominal pain otherwise she denies any complaints, there is no fever or chills no headache or dizziness no chest pain no shortness of breath no cough no nausea or vomiting no diarrhea no blood in the stools no burning with urination no frequency or urgency no hematuria. At this time patient is stable from medical standpoint for discharge, she is able to ambulate with physical therapy. finish repair worker is involved in discharge planning, apparently patient now has a guardian. Objective - Vital Signs Vital signs: Vital Signs Temp 97.3 F L 09/10/23 07:07 Pulse 57 L 09/10/23 08:17 Resp 18 09/10/23 08:17 BP 148/66 09/10/23 07:07 Pulse Ox 98 09/10/23 07:07 FiO2 Intake & Output 09/09/23 09/10/23 09/10/23 18:59 06:59 18:59 Weight 49.895 kg Other: Voiding Method Toilet Toilet Toilet # Voids 3 - Exam In general patient is alert and oriented 3 in no apparent distress Head normocephalic and atraumatic Neck supple no JVD no goiter Lungs clear to auscultation bilaterally no wheezing or crackles Heart regular rate and rhythm S1-S2, no rub or gallop Abdomen slightly distended tender to touch Extremities no edema Neuro no gross focal deficits - Labs CBC & Chem 7: 09/10/23 08:08 09/10/23 08:08 Labs: Abnormal Lab Results - Last 24 Hours (Table) 09/10/23 09/10/23 Range/Units 08:08 08:08 RBC 3.63 L (3.80-5.40) m/uL Hgb 10.5 L (11.4-16.0) gm/dL Hct 33.2 L (34.0-46.0) % BUN 20 H (7-17) mg/dL Glucose 117 H (74-99) mg/dL Assessment and Plan Assessment: 1. Nausea vomiting abdominal pain secondary to small bowel obstruction 2. Recent history of small bowel obstructions 3. History of abdominal surgeries including resection 4. Elevated lactic acid. Patient is afebrile with no elevated white blood cell count continue to monitor. 5. History of GERD 6. History of hypo-thyroidism 7. History of hyperlipidemia 8. History of essential hypertension 9. History of degenerative disc disease Medications reviewed and reordered IV Synthroid at half dose ordered For DVT prophylaxis subcu heparin For GI prophylaxis IV Protonix Will continue to monitor closely
[2023-09-11] MEDS: LEVOTHYROXINE 100 MCG TAB PO SCH (05:55)
[2023-09-11 07:16] VITALS: BP 101/50; PULSE 56; RESP 17; TEMP 98.3
[2023-09-11] MEDS: PANTOPRAZOLE 40 MG/10 ML VIAL IVP SCH (08:30)
[2023-09-11] MEDS: HEPARIN SODIUM,PORCINE 5,000 UNIT/ML 1 ML VIAL SQ SCH (08:30)
--- NOTE | 2023-09-11 10:18 | P.PN ---
Subjective Progress Note Date: 09/11/23 Celeste Haines, is a 78-year-old female patient of Dr. Turner presented with complaints of acute nausea vomiting and abdominal pain that has been occurring over the past week. Patient reports his symptoms started last Thursday. Patient reports minimum bowel movements. Abdomen is distended and firm. Patient has a past medical history of previous bowel obstructions and history of sigmoid bowel resection, hiatal hernia repair and cholecystectomy. Additional medical history includes GERD, hyperlipidemia, hypertension, arthritis, thyroid disorder, pancreatitis, degenerative disc disease.CT of abdomen and pelvis completed in ER showing small bowel obstruction unchanged cystic structure with the head of the pancreas is favored to be benign was evaluated by MRI and 11/18/2022. This time patient has been admitted to surgical services NG tube placed. Patient started on IV Protonix. Currently nothing by mouth. Patient reports improvement with abdominal discomfort. Current vital signs temp 97.4, heart 58, blood pressure 112/92 with pulse ox 97% on room air On 09/05/2023 patient was seen and examined on the medical floor, she is alert and oriented 3 in no apparent distress NG tube is still in. abdominal pain is improving there is no nausea or vomiting no abdominal distention patient did not have any flatus or any bowel movements yet. Otherwise patient denies any complaints there is no fever or chills no headache or dizziness no chest pain no shortness of breath no cough and no urinary symptoms. On 09/06/2023 patient is alert and oriented 3. Repeat CT has been ordered per surgical services. Patient remains with NG tube. Nothing by mouth at this time. Patient is eager to have diet. Awaiting surgical recommendations. Current vital signs temp 98.0, heart rate 63, respiratory rate 18, blood pressure 151/67 with a pulse ox of 98% on room On 09/07/2023 patient was seen and examined on the medical floor she is alert and oriented 3 in no apparent distress. There is no fever or chills no headache or dizziness no chest pain no shortness of breath no cough no nausea or vomiting no abdominal pain no diarrhea and no urinary symptoms. NG tube was removed today by surgical services, patient was started on clear liquid diet, she is tolerating well at this time, will start physical therapy, will continue to monitor closely. On 09/08/2023 patient is alert and oriented 3. Patient tolerating clear liquid diet. Awaiting further recommendations from surgical services. Awaiting further recommendations from surgical services. She remains on TPN. Current vital signs temp 98.3 heart rate 64, respiratory rate 16, blood pressure 126/52 with pulse ox of 97% on room air On 09/09/2023 patient alert and oriented 3. Diet has been advanced to full liquid. Patient remains on TPN. Per nursing staff plan per surgical services is to continue TPN until oral intake increases. Patient denies chest pain or shortness of breath. Patient denies nausea vomiting or diarrhea. Patient denies any urinary burning or frequency On 09/10/2023 patient was seen and examined she is alert and oriented 3 in no apparent distress she is able to tolerate diet well, she states that she is having bowel movement and passing flatus, she is still having mild left lower quadrant abdominal pain otherwise she denies any complaints, there is no fever or chills no headache or dizziness no chest pain no shortness of breath no cough no nausea or vomiting no diarrhea no blood in the stools no burning with urination no frequency or urgency no hematuria. At this time patient is stable from medical standpoint for discharge, she is able to ambulate with physical therapy. direct service worker is involved in discharge planning, apparently patient now has a guardian. On 09/11/2023 patient is alert and oriented 3. Patient is cleared for discharge from medical standpoint awaiting legal guardian decision social welfare administrator following. At this time patient denies chest pain or shortness breath. Patient denies nausea vomiting or diarrhea. Patient denies any urinary burning or frequency Objective - Vital Signs Vital signs: Vital Signs Temp 98.3 F 09/11/23 06:52 Pulse 56 L 09/11/23 06:52 Resp 17 09/11/23 06:52 BP 101/50 09/11/23 06:52 Pulse Ox 95 09/11/23 06:52 FiO2 Intake & Output 09/10/23 09/11/23 09/11/23 18:59 06:59 18:59 Intake Total 20 Balance 20 Intake: IV 20 Invasive Line 2 10 Invasive Line 3 10 Other: Voiding Method Toilet Toilet # Voids 4 1 - Exam In general patient is alert and oriented 3 in no apparent distress Head normocephalic and atraumatic Neck supple no JVD no goiter Lungs clear to auscultation bilaterally no wheezing or crackles Heart regular rate and rhythm S1-S2, no rub or gallop Abdomen slightly distended tender to touch Extremities no edema Neuro no gross focal deficits - Labs CBC & Chem 7: 09/10/23 08:08 09/10/23 08:08 Assessment and Plan Assessment: 1. Nausea vomiting abdominal pain secondary to small bowel obstruction 2. Recent history of small bowel obstructions 3. History of abdominal surgeries including resection 4. Elevated lactic acid. Patient is afebrile with no elevated white blood cell count continue to monitor. 5. History of GERD 6. History of hypo-thyroidism 7. History of hyperlipidemia 8. History of essential hypertension 9. History of degenerative disc disease Medications reviewed and reordered IV Synthroid at half dose ordered For DVT prophylaxis subcu heparin For GI prophylaxis IV Protonix Will continue to monitor closely
--- NOTE | 2023-09-11 10:58 | P.DS ---
Providers Date of admission: 09/03/23 14:20 Expected date of discharge: 09/11/23 Attending physician: Deng Camara Consults: 09/03/23 14:19 Consult Physician Urgent Consulting Provider: Maria Eugenia Hooper Consult Reason/Comments: acute nausea and vomiting, acute sbo Do you want consulting provider notified?: Yes Primary care physician: Roxanna Lozano Hospital Course: Discharge diagnosis 1. Small bowel obstruction resolved with conservative management 2. History of abdominal surgeries 3. History of prior small bowel obstructions 4. Elevated lactic acid improved with fluids Hospital course This is a 78-year-old female presented to the hospital with complaints of abdominal pain with nausea and vomiting. Her computed tomography scan abdomen and pelvis had reported small bowel obstruction. Unchanged cystic structure within the head of the pancreas is favored to be benign. Patient had NG tube placed. Patient was managed conservatively with resolution of her small bowel obstruction. Patient is tolerating diet. She is having bowel movements. She has been up and ambulating. She is stable for discharge. She has been cleared medically for discharge. Patient evaluate by physical therapy she is ambulating. She'll be discharged home with home care. Please refer to chart for any further details. Physician Park Interpreter note has been reviewed by physician. Signing provider agrees with the documented findings, assessment, and plan of care. Patient Condition at Discharge: Stable Plan - Discharge Summary Discharge Rx Participant: Yes New Discharge Prescriptions: Continue Oxybutynin Chloride [oxyBUTYnin chloride ER] 10 mg PO DAILY Donepezil [Aricept] 5 mg PO DAILY Aspirin EC [Ecotrin Low Dose] 81 mg PO DAILY amLODIPine [Norvasc] 2.5 mg PO DAILY Sertraline [Zoloft] 50 mg PO DAILY Levothyroxine Sodium [Synthroid] 100 mcg PO DAILY Rosuvastatin Calcium 5 mg PO DIRECTED Pantoprazole Sodium [Protonix] 40 mg PO DAILY risperiDONE [RisperDAL] 0.25 mg PO BID 30 Days #60 tab Discharge Medication List amLODIPine [Norvasc] 2.5 mg PO DAILY 05/17/21 [History] Aspirin EC [Ecotrin Low Dose] 81 mg PO DAILY 03/13/23 [History] Donepezil [Aricept] 5 mg PO DAILY 03/13/23 [History] Levothyroxine Sodium [Synthroid] 100 mcg PO DAILY 03/13/23 [History] Oxybutynin Chloride [oxyBUTYnin chloride ER] 10 mg PO DAILY 03/13/23 [History] Sertraline [Zoloft] 50 mg PO DAILY 03/13/23 [History] Pantoprazole Sodium [Protonix] 40 mg PO DAILY 07/16/23 [History] Rosuvastatin Calcium 5 mg PO DIRECTED 07/16/23 [History] risperiDONE [RisperDAL] 0.25 mg PO BID 30 Days #60 tab 07/18/23 [Rx] Follow up Appointment(s)/Referral(s): Roxanna Lozano MD [Primary Care Provider] - 1-2 Days [facility], [NON-STAFF] - 1-2 Days ([facility] will call you to schedule your in home nursing, physical therapy, and occupational therapy visits. ) Activity/Diet/Wound Care/Special Instructions: *Set up wheelchair van for discharge: [phone] and have it billed to the Public Guardian's office. Continue low fiber diet for the next few days Discharge Disposition: HOME WITH HOME HEALTH SERVICES
[2023-09-11] MEDS ORDERED: ROSUVASTATIN CALCIUM 5 MG PO SCH (11:00)
[2023-09-11] MEDS ORDERED: risperiDONE 0.25 MG TAB PO SCH (21:00)
[2023-09-12] MEDS ORDERED: LEVOTHYROXINE 100 MCG TAB PO SCH (06:30)
[2023-09-12] MEDS ORDERED: DONEPEZIL 5 MG TAB PO SCH (09:00)
[2023-09-12] MEDS ORDERED: SERTRALINE 50 MG TAB PO SCH (09:00)
[2023-09-12] MEDS ORDERED: ASPIRIN 81 MG PO SCH (09:00)
[2023-09-12] MEDS ORDERED: OXYBUTYNIN 10 MG TAB.ER.24 PO SCH (09:00)
[2023-09-12] MEDS ORDERED: amLODIPine 2.5 MG TAB PO SCH (09:00)
== END 2023-09-11 13:05 | disposition home health service (06) | DRG 389 ==
LOC: EC 09:54 → 4SSUR 14:20 → EEVIPCON 14:20 → 4SSUR 17:53
PROVIDERS: ADMIT Surgery; ATTEND Surgery
PROC: 3E0436Z Introduction of Nutritional Substance into Central Vein, Percutaneous Approach (ICD-10-PCS; 2023-09-04)
PROC: 02HV33Z Insertion of Infusion Device into Superior Vena Cava, Percutaneous Approach (ICD-10-PCS; principal; 2023-09-04 09:00)
PROC: 0D9670Z Drainage of Stomach with Drainage Device, Via Natural or Artificial Opening (ICD-10-PCS; 2023-09-05)
DX: K56.51 Intestinal adhesions [bands], with partial obstruction (principal); F03.93 Unspecified dementia, unspecified severity, with mood disturbance; K86.2 Cyst of pancreas; I10 Essential (primary) hypertension; E03.9 Hypothyroidism, unspecified; E78.5 Hyperlipidemia, unspecified; K21.9 Gastro-esophageal reflux disease without esophagitis; M50.30 Other cervical disc degeneration, unspecified cervical region; M19.90 Unspecified osteoarthritis, unspecified site; M51.36 Other intervertebral disc degeneration, lumbar region; Z90.49 Acquired absence of other specified parts of digestive tract; Z87.19 Personal history of other diseases of the digestive system; Z86.14 Personal history of Methicillin resistant Staphylococcus aureus infection; Z79.82 Long term (current) use of aspirin; Z79.890 Hormone replacement therapy; Z88.1 Allergy status to other antibiotic agents; Z88.8 Allergy status to other drugs, medicaments and biological substances; Z88.5 Allergy status to narcotic agent; Z79.899 Other long term (current) drug therapy
CPT/HCPCS: 36415; 36573; 71045; 74177; 80048; 80053; 81001; 82040; 82150; 82247; 82330; 83605; 83690; 83735; 84075; 84100; 84132; 84155; 84450; 84460; 84478; 85025; 85027; 96361; 96374; 99285

== ENCOUNTER 2023-10-12 05:40 | Inpatient (IN) | payer MEDICARE ==
[~2023-10-12 05:40] MED LIST changes: -LACTATED RINGERS 1,000 ML IV SCH; -LIDOCAINE 1% (10MG/ML) FOR IV START INTRADERMA PRN; +Pre Op ABX Message 1 EACH MISC MISCELLANE ONE
[2023-10-12] MEDS ORDERED: ACETAMINOPHEN TAB 500 MG TAB PO PRN (06:00)
[2023-10-12] MEDS ORDERED: HYDROmorphone 0.5 MG/0.5 ML SYRINGE IVP PRN (06:14)
[2023-10-12] MEDS ORDERED: droPERidol 5 MG/2 ML VIAL IVP PRN (06:14)
[2023-10-12] MEDS ORDERED: DEXAMETHASONE SOD PHOSPHATE 4 MG/ML 1 ML VIAL IV ONE (06:14)
[2023-10-12] MEDS ORDERED: LIDOCAINE 1% (10MG/ML) FOR IV START INTRADERMA PRN (06:14)
[2023-10-12] MEDS ORDERED: ONDANSETRON 4 MG/2 ML VIAL IVP ONE (06:14)
[2023-10-12] MEDS: LACTATED RINGERS 1,000 ML IV SCH (06:50)
[2023-10-12] MEDS ORDERED: SODIUM CHLORIDE 0.9% 100 ML BAG ONE (07:39)
[2023-10-12] MEDS ORDERED: PROPOFOL 10 MG/ML 20 ML VIAL IV ONE (07:39)
[2023-10-12] MEDS ORDERED: SUCCINYLCHOLINE CHLORIDE 200 MG/10 ML VIAL IV ONE (07:39)
[2023-10-12] MEDS ORDERED: NEOSTIGMINE 1 MG/ML 10 ML VIAL ONE (07:39)
[2023-10-12] MEDS ORDERED: ceFAZolin 1,000 MG VIAL ONE (07:39)
[2023-10-12] MEDS ORDERED: fentaNYL (PF) 50 MCG/ML 2 ML AMP ONE (07:39)
[2023-10-12] MEDS ORDERED: ROCURONIUM 10 MG/ML (5 ML VIAL) IV ONE (07:39)
[2023-10-12] MEDS ORDERED: GLYCOPYRROLATE 0.2 MG/ML 2 ML VIAL ONE (07:39)
[2023-10-12] MEDS ORDERED: KETAMINE HCL IN 0.9 % NACL 50 MG/5 ML SYRINGE ONE (07:39)
[2023-10-12] MEDS ORDERED: KETOROLAC 15 MG/ML 1 ML VIAL ONE (07:39)
[2023-10-12] MEDS ORDERED: SODIUM CHLORIDE 0.9% 50 ML IV ONE (07:39)
[2023-10-12] MEDS ORDERED: LIDOCAINE 1% INJ 10MG/ML (20 ML MDV) ONE (07:39)
[2023-10-12] MEDS ORDERED: BUPIVACAINE (PF) 0.25% 30 ML VIAL SQ ONE (08:00)
[2023-10-12] MEDS ORDERED: LACTATED RINGERS 1,000 ML IV ONE ×2 (09:14→10:59)
--- NOTE | 2023-10-12 09:42 | P.OP ---
Date of Procedure: 10/12/23 Preoperative Diagnosis: Adhesions Postoperative Diagnosis: Extensive adhesions Procedure(s) Performed: Diagnostic laparoscopy Lysis of extensive adhesions Anesthesia: CALISTA Surgeon: Deng Camara Estimated Blood Loss (ml): 25 Pathology: none sent Condition: stable Disposition: PACU Description of Procedure: The patient's placed on the operative table in the supine position. She received general endotracheal tube anesthesia. Her abdomen was prepped and draped in sterile fashion. Patient had a midline scar. Using a pair is needle in the left upper quadrant the perineal cavity is entered. And then the abdomen was then split. After adequate insufflation a 5 mm optical trocar was placed in the right lateral position. There is extensive adhesions noted in this position. Next another trochars placed in the epigastric position and extensive adhesions were noted in this area. Due to the extensive adhesions inside performed open procedure. The trochars withdrawn. The skin was incised in midline. And then adhesions were encountered in the perineal cavity. The a dhesions were quite extensive. Approximately one hour of operative time used to lyse adhesions. The small bowel was then run from the [place] to the terminal ileum. No obstruction was seen after placement adhesions. There is no bleeding seen. The abdomen was irrigated. There is no bleeding seen. The fascia was then closed loop #1 PDS suture. Skin was closed nancy. Patient tolerated the procedure well. She was sent to recovery room in stable condition.
[2023-10-12] MEDS ORDERED: METOCLOPRAMIDE 5 MG/ML 2 ML VIAL IVP PRN (10:59)
[2023-10-12] MEDS ORDERED: ONDANSETRON 4 MG/2 ML VIAL IVP PRN (10:59)
[2023-10-12] MEDS ORDERED: HYDROmorphone 1 MG/ML 1 ML SYRINGE IVP PRN (10:59)
[2023-10-12] MEDS ORDERED: NALOXONE 0.4 MG/ML 1 ML VIAL IV PRN (10:59)
[2023-10-12] MEDS ORDERED: ACETAMINOPHEN TAB 325 MG TAB PO PRN (10:59)
[2023-10-12] MEDS: HYDROmorphone 0.5 MG/0.5 ML SYRINGE IVP PRN (14:02)
[2023-10-12] MEDS ORDERED: HEPARIN SODIUM,PORCINE 5,000 UNIT/ML 1 ML VIAL SQ PRN (14:07)
[2023-10-12] MEDS: risperiDONE 0.25 MG TAB PO SCH (20:47)
[2023-10-13] MEDS: LACTATED RINGERS 1,000 ML IV SCH (00:35)
[2023-10-13] MEDS: HYDROmorphone 0.5 MG/0.5 ML SYRINGE IVP PRN ×3 (05:47→18:05)
[2023-10-13] MEDS: ENOXAPARIN 40 MG/0.4 ML SYRINGE SQ SCH (09:20)
--- NOTE | 2023-10-13 09:57 | P.CONS ---
History of Present Illness - Reason for Consult Consult date: 10/13/23 Medical management Requesting physician: Deng Huffman - History of Present Illness This is a 78-year-old female patient who presented for an elective diagnostic laparoscopic and lysis of adhesions with Dr. huffman on 10/12/2023. Patient was recently admitted and treated for small bowel obstruction in September 2023. Patient has a history of recurring small bowel obstructions with previous ab dominal surgeries and resections. Additional medical history includes hyperthyroidism, hyperlipidemia, hypertension and degenerative disc disease. During procedure patient was noted to have extensive adhesions. At this time patient is resting comfortably in bed. Patient remains nothing by mouth per surgical services. Patient denies chest pain or shortness of breath. Patient denies nausea vomiting or diarrhea. Patient denies any urinary burning or frequency. Current vital signs temp 98.4, heart rate 76, respiratory rate 18, blood pressure 103/52 with pulse ox of 95% on room air. Home medications ordered. Repeat labs ordered Review of Systems Please refer to HPI otherwise unremarkable Past Medical History Past Medical History: Chest Pain / Angina, Dementia, GERD/Reflux, Hyperlipidemia, Hypertension, Osteoarthritis (OA), Skin Disorder, Thyroid Disorder Additional Past Medical History / Comment(s): Hx. pancreatitis with pancreatic cysts, psoriasis Lt ankle, angina - none recent, vitamin D deficiency, degenerative disc disease of the cervical & lumbar spine, diverticulitis. bronchitis, uterine fibroids, falls,hiatal hernia, bowel obstructions, UTI, hallucinations, falls. History of Any Multi-Drug Resistant Organisms: None Reported, MRSA, Other MDRO Year Discovered:: 2013 in [facility] MDRO Source:: spider bite on lt. leg Past Surgical History: Adenoidectomy, Back Surgery, Bowel Resection, Cholecystectomy, Hernia Repair, Hysterectomy, Orthopedic Surgery, Tonsillectomy Additional Past Surgical History / Comment(s): Anterior cervical discectomy with fusion(total 3 sx, has wire in neck) , lumbar fusion 3-screws in back, Rt. hip surgery(not a hip replacement), Left 1st rib removal r/t thoracic outlet syndrome, Hiatal hernia surg., Bilateral cataract surgery with lens implant, Lt elbow tendon release, Sx on gums d/t infection, dental implant, sigmoid resection Past Anesthesia/Blood Transfusion Reactions: No Reported Reaction Additional Past Anesthesia/Blood Transfusion Reaction / Comm: blood transfusion in 1970-no reaction Past Psychological History: Depression Additional Psychological History / Comment(s): Lives in [facility] [place]. alone, friends assist her w/ meals,medications. Dementia is worsening and is awaiting Assisted Living Care. 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 Smoking Status: Never smoker Past Alcohol Use History: None Reported Past Drug Use History: None Reported - Past Family History Father History Unknown: Yes Family Medical History: Coronary Artery Disease (CAD) Additional Family Medical History / Comment(s): aortic aneurysm at 72 Mother Family Medical History: CVA/TIA Brother(s) Family Medical History: No Reported History Sister(s) Family Medical History: Vascular Disorder Son(s) Family Medical History: No Reported History Daughter(s) Family Medical History: Unable to Obtain Medications and Allergies Home Medications Medication Instructions Recorded Confirmed Type amLODIPine [Norvasc] 2.5 mg PO QA 05/17/21 10/08/23 History Aspirin EC [Ecotrin Low Dose] 81 mg PO DAILY 03/13/23 10/09/23 History Donepezil [Aricept] 5 mg PO QAM 03/13/23 10/08/23 History Levothyroxine Sodium [Synthroid] 100 mcg PO QA 03/13/23 10/08/23 History Oxybutynin Chloride [oxyBUTYnin 10 mg PO [facility] 03/13/23 10/08/23 History chloride ER] Sertraline [Zoloft] 50 mg PO [facility] 03/13/23 10/08/23 History Pantoprazole Sodium [Protonix] 40 mg PO [facility] 07/16/23 10/08/23 History Rosuvastatin Calcium 5 mg PO [facility] 07/16/23 10/08/23 History risperiDONE [RisperDAL] 0.25 mg PO BID 30 Days #60 tab 07/18/23 10/08/23 Rx Allergies Allergy/AdvReac Type Severity Reaction Status Date / Time clindamycin Allergy Rash/Hives Verified 10/08/23 09:32 atorvastatin calcium AdvReac LEG CRAMPS Verified 10/08/23 09:32 [From Lipitor] morphine AdvReac Nausea & Verified 10/08/23 09:32 Vomiting Physical Exam Vitals: Vital Signs Temp Pulse Pulse Resp BP Pulse Ox 10/13/23 07:35 76 18 10/13/23 07:02 98.4 F 76 18 103/52 95 10/13/23 02:00 97.4 F L 77 14 101/58 95 10/12/23 19:53 97.7 F 67 16 116/56 97 10/12/23 12:43 98.1 F 61 17 102/54 95 10/12/23 12:27 60 91/52 96 10/12/23 12:12 58 L 87/47 94 L 10/12/23 11:57 61 82/43 95 10/12/23 11:42 59 L 91/52 96 10/12/23 11:27 61 92/53 96 10/12/23 11:12 63 95/59 95 10/12/23 10:57 60 88/49 95 10/12/23 10:43 65 92/48 96 10/12/23 10:30 66 16 111/53 97 10/12/23 10:15 70 16 117/56 100 10/12/23 10:00 66 16 132/63 100 Intake and Output 10/12/23 10/13/23 10/13/23 22:59 06:59 14:59 Intake Total 500 Balance 500 Intake: Intake, IV Titration 500 Amount Lactated Ringers 1,000 ml 500 @ 125 mls/hr IV .Q8H ONE Rx#:[id number] Other: # Voids 2 Head normocephalic Neck supple Lungs clear to auscultation bilaterally no wheezing or crackles Heart regular rate and rhythm S1-S2, no rub or gallop Abdomen is soft. Dressing is clean dry and intact Extremities no edema Neuro alert and orientated to 3 Assessment and Plan Assessment: 1. Status post diagnostic laparoscopy with lysis of adhesions on 10/12/2023 2. History of small bowel obstructions most recent in September 2023 3. History of abdominal surgeries with multiple resections 4. History of GERD 5. History of hypothyroidism 6. History of hyperlipidemia 7. History of essential hypertension 8. History of degenerative disc disease Thank you for this consultation we will continue to follow patient closely throughout stay Time with Patient: Greater than 30 (Greater than 60% of the total time spent in counseling and coordination of care)
[2023-10-13] MEDS: ASPIRIN 81 MG PO SCH (10:43)
[2023-10-13] MEDS: amLODIPine 2.5 MG TAB PO SCH (10:43)
[2023-10-13] MEDS: LEVOTHYROXINE 100 MCG TAB PO SCH (10:43)
[2023-10-13] MEDS: PANTOPRAZOLE 40 MG TABLET PO SCH (10:43)
[2023-10-13] MEDS: DONEPEZIL 5 MG TAB PO SCH (10:43)
[2023-10-13] MEDS: risperiDONE 0.25 MG TAB PO SCH ×2 (10:43→20:09)
[2023-10-13] MEDS: SERTRALINE 50 MG TAB PO SCH (10:44)
[2023-10-13 10:51] LABS: Basophils # (A) 0.03 X 10*3/uL (0.00-0.10); Basophils % (A) 0.3 %; Eosinophils # (A) 0.04 X 10*3/uL (0.04-0.35); Eosinophils % (A) 0.5 %; HCT 28.2 % (37.2-46.3); Lymphocytes # (A) 0.92 X 10*3/uL (0.90-5.00); Lymphocytes % (A) 10.4 %; MCH 29.1 pg (27.0-32.0); MCHC 31.9 g/dL (32.0-37.0); MCV 91.3 FL (80.0-97.0); Mean Platelet Volume 10.8 FL (9.5-12.2); Monocytes # (A) 0.72 X 10*3/uL (0.20-1.00); Monocytes % (A) 8.1 %; NRBC Per 100 WBC 0 X 10*3/uL (0.00-0.01); Neutrophils # (A) 7.09 X 10*3/uL (1.80-7.70); Neutrophils % (A) 80.2 %; Platelet Count 183 X 10*3/uL (140-440); RBC 3.09 X 10*6/uL (4.10-5.20); RDW 14.5 % (11.5-14.5); WBC 8.84 X 10*3/uL (4.50-10.00)
[2023-10-13 11:07] LABS: ALT 13 U/L (8-44); AST 24 U/L (13-35); Albumin 3.4 g/dL (3.8-4.9); Albumin/Globulin Ratio 2.27 Ratio (1.60-3.17); Alkaline Phosphatase 60 U/L (41-126); Blood Urea Nitrogen 29.6 mg/dL (9.0-27.0); Calcium 8.7 mg/dL (8.7-10.3); Carbon Dioxide 26.2 mmol/L (21.6-31.8); Chloride 106 mmol/L (96-109); Globulin 1.5 g/dL (1.6-3.3); Glucose 127 mg/dL (70-110); Potassium 4.1 mmol/L (3.5-5.5); Sodium 140 mmol/L (135-145); Total Bilirubin 0.5 mg/dL (0.3-1.2); Total Protein 4.9 g/dL (6.2-8.2)
--- NOTE | 2023-10-13 14:58 | P.PN ---
Subjective Progress Note Date: 10/13/23 CHIEF COMPLAINT: Adhesions HISTORY OF PRESENT ILLNESS: Patient postop day #1 status post diagnostic lapar oscopy with lysis of adhesions. Patient complains of abdominal pain. She denies any nausea or vomiting. Denies any bowel activity. Afebrile. WBC is 8.8 hgb 9.0 platelets 183 sodium 140 potassium 4.1 creatinine 0.8 PHYSICAL EXAM: VITAL SIGNS: Reviewed. GENERAL: Well-developed in no acute distress. HEENT: No sclera icterus. Extraocular movements grossly intact. Moist buccal mucosa. Head is atraumatic, normocephalic. ABDOMEN: Soft. Nondistended. Nontender. NEUROLOGIC: Alert and oriented. Cranial nerves II through XII grossly intact. ASSESSMENT: 1. Partial small bowel obstruction status post diagnostic laparoscopy with lysis of adhesions PLAN: -Keep patient nothing by mouth -Continue pain management -Encourage patient to ambulate -Encouraged patient to use incentive spirometer -Continue IV fluids -DVT prophylaxis Lovenox Physician Collection Systems Modeler note has been reviewed by physician. Signing provider agrees with the documented findings, assessment, and plan of care. Objective - Vital Signs Vital signs: Vital Signs Temp 98.4 F 10/13/23 07:02 Pulse 76 10/13/23 07:35 Resp 18 10/13/23 07:35 BP 103/52 10/13/23 07:02 Pulse Ox 95 10/13/23 07:02 FiO2 Intake & Output 10/12/23 10/13/23 10/13/23 18:59 06:59 18:59 Intake Total 1600 Output Total 50 Balance 1550 Weight 46.4 kg Intake: IV 1100 Intake, IV Titration 500 Amount Lactated Ringers 1,000 ml 500 @ 125 mls/hr IV .Q8H ONE Rx#:[id number] Output: Estimated Blood Loss 50 Other: # Voids 2 - Labs CBC & Chem 7: 10/13/23 06:29 10/13/23 06:29 Labs: Abnormal Lab Results - Last 24 Hours (Table) 10/13/23 10/13/23 Range/Units 06:29 06:29 RBC 3.09 L (4.10-5.20) X 10*6/uL Hgb 9.0 L (12.0-15.0) g/dL Hct 28.2 L (37.2-46.3) % MCHC 31.9 L (32.0-37.0) g/dL BUN 29.6 H (9.0-27.0) mg/dL BUN/Creatinine Ratio 37.00 H (12.00-20.00) Ratio Glucose 127 H (70-110) mg/dL Total Protein 4.9 L (6.2-8.2) g/dL Albumin 3.4 L (3.8-4.9) g/dL Globulin 1.5 L (1.6-3.3) g/dL
[2023-10-13] MEDS: ATORVASTATIN 10 MG TAB PO SCH (19:58)
[2023-10-14] MEDS: HYDROmorphone 0.5 MG/0.5 ML SYRINGE IVP PRN ×3 (05:24→22:27)
[2023-10-14] MEDS: LACTATED RINGERS 1,000 ML IV SCH ×5 (06:07→23:39)
[2023-10-14 08:42] LABS: Basophils # (A) 0.02 X 10*3/uL (0.00-0.10); Basophils % (A) 0.3 %; Eosinophils # (A) 0.05 X 10*3/uL (0.04-0.35); Eosinophils % (A) 0.6 %; HCT 25.8 % (37.2-46.3); HGB 8.2 g/dL (12.0-15.0); Lymphocytes # (A) 0.51 X 10*3/uL (0.90-5.00); Lymphocytes % (A) 6.6 %; MCH 29.1 pg (27.0-32.0); MCHC 31.8 g/dL (32.0-37.0); MCV 91.5 FL (80.0-97.0); Mean Platelet Volume 10.8 FL (9.5-12.2); Monocytes # (A) 0.51 X 10*3/uL (0.20-1.00); Monocytes % (A) 6.6 %; NRBC Per 100 WBC 0 X 10*3/uL (0.00-0.01); Neutrophils # (A) 6.63 X 10*3/uL (1.80-7.70); Neutrophils % (A) 85.3 %; Platelet Count 140 X 10*3/uL (140-440); RBC 2.82 X 10*6/uL (4.10-5.20); RDW 14.4 % (11.5-14.5); WBC 7.77 X 10*3/uL (4.50-10.00)
[2023-10-14] MEDS: LEVOTHYROXINE 100 MCG TAB PO SCH (09:20)
[2023-10-14] MEDS: DONEPEZIL 5 MG TAB PO SCH (09:20)
[2023-10-14] MEDS: amLODIPine 2.5 MG TAB PO SCH (09:20)
[2023-10-14] MEDS: ASPIRIN 81 MG PO SCH (09:20)
[2023-10-14] MEDS: ENOXAPARIN 40 MG/0.4 ML SYRINGE SQ SCH (09:20)
[2023-10-14] MEDS: PANTOPRAZOLE 40 MG TABLET PO SCH (09:20)
[2023-10-14] MEDS: risperiDONE 0.25 MG TAB PO SCH ×2 (09:21→20:19)
[2023-10-14] MEDS: SERTRALINE 50 MG TAB PO SCH (09:35)
[2023-10-14 11:04] LABS: ALT 12 U/L (8-44); AST 19 U/L (13-35); Albumin 3.2 g/dL (3.8-4.9); Alkaline Phosphatase 65 U/L (41-126); Blood Urea Nitrogen 18.6 mg/dL (9.0-27.0); Calcium 8.5 mg/dL (8.7-10.3); Carbon Dioxide 24.4 mmol/L (21.6-31.8); Chloride 103 mmol/L (96-109); Globulin 1.6 g/dL (1.6-3.3); Glucose 119 mg/dL (70-110); Potassium 3.5 mmol/L (3.5-5.5); Sodium 138 mmol/L (135-145); Total Bilirubin 0.7 mg/dL (0.3-1.2); Total Protein 4.8 g/dL (6.2-8.2)
--- NOTE | 2023-10-14 11:05 | P.PN ---
Subjective Progress Note Date: 10/14/23 CHIEF COMPLAINT: Adhesions HISTORY OF PRESENT ILLNESS: Patient postop day #2 status post diagnostic lapar oscopy with lysis of adhesions. Patient reports her pain is improving. She denies any flatus. Denies any nausea or vomiting. Afebrile. WBC 7.7 Hgb 8.2 platelets 140 CMP pending. Afebrile PHYSICAL EXAM: VITAL SIGNS: Reviewed. GENERAL: Well-developed in no acute distress. ABDOMEN: Soft. Nondistended. Midline Incision site clean dry and intact. Right-sided incision minimal bleeding. NEUROLOGIC: Alert and oriented. Cranial nerves II through XII grossly intact. ASSESSMENT: 1. Partial small bowel obstruction status post diagnostic laparoscopy with lysis of adhesions PLAN: -Keep patient nothing by mouth -Continue pain management -Encourage patient to ambulate -Encouraged patient to use incentive spirometer -Continue IV fluids -Consult PT OT to help ambulate patient -Incisional dressing change to Optifoam -DVT prophylaxis Lovenox Physician Animal Care Specialist note has been reviewed by physician. Signing provider agrees with the documented findings, assessment, and plan of care. Objective - Vital Signs Vital signs: Vital Signs Temp 97.5 F L 10/14/23 07:19 Pulse 62 10/14/23 07:19 Resp 19 10/14/23 07:19 BP 138/60 10/14/23 07:19 Pulse Ox 96 10/14/23 07:19 FiO2 Intake & Output 10/13/23 10/14/23 10/14/23 18:59 06:59 18:59 Intake Total 900 Balance 900 Intake: Intake, IV Titration 900 Amount Lactated Ringers 1,000 ml 900 @ 125 mls/hr IV .Q8H ONE Rx#:[id number] Other: # Voids 3 - Labs CBC & Chem 7: 10/14/23 06:03 10/13/23 06:29 Labs: Abnormal Lab Results - Last 24 Hours (Table) 10/13/23 10/14/23 Range/Units 06:29 06:03 RBC 2.82 L (4.10-5.20) X 10*6/uL Hgb 8.2 L (12.0-15.0) g/dL Hct 25.8 L (37.2-46.3) % MCHC 31.8 L (32.0-37.0) g/dL Immature Gran # 0.05 H (0.00-0.04) X 10*3/uL Lymphocytes # 0.51 L (0.90-5.00) X 10*3/uL BUN 29.6 H (9.0-27.0) mg/dL BUN/Creatinine Ratio 37.00 H (12.00-20.00) Ratio Glucose 127 H (70-110) mg/dL Total Protein 4.9 L (6.2-8.2) g/dL Albumin 3.4 L (3.8-4.9) g/dL Globulin 1.5 L (1.6-3.3) g/dL
--- NOTE | 2023-10-14 11:43 | P.PN ---
Subjective Progress Note Date: 10/14/23 This is a 78-year-old female patient who presented for an elective diagnostic laparoscopic and lysis of adhesions with Dr. huffman on 10/12/2023. Patient was recently admitted and treated for small bowel obstruction in September 2023. Patient has a history of recurring small bowel obstructions with previous abdominal surgeries and resections. Additional medical history includes hyperthyroidism, hyperlipidemia, hypertension and degenerative disc disease. During procedure patient was noted to have extensive adhesions. At this time patient is resting comfortably in bed. Patient remains nothing by mouth per surgical services. Patient denies chest pain or shortness of breath. Patient denies nausea vomiting or diarrhea. Patient denies any urinary burning or frequency. Current vital signs temp 98.4, heart rate 76, respiratory rate 18, blood pressure 103/52 with pulse ox of 95% on room air. Home medications ordered. Repeat labs ordered On 10/14/2023 patient is alert and oriented 3 currently resting in bed. Will consult PT OT services. Current vital signs temp 97.5, heart rate 62, respiratory rate 18, blood pressure 130/60 with a pulse ox 96% on room air. Hemoglobin 8.2 we'll check iron studies and continue to monitor. Patient denies chest pain or shortness of breath. Patient denies nausea vomiting or diarrhea. Patient denies any urinary burning or frequency. Objective - Vital Signs Vital signs: Vital Signs Temp 97.5 F L 10/14/23 07:19 Pulse 62 10/14/23 07:19 Resp 19 10/14/23 07:19 BP 138/60 10/14/23 07:19 Pulse Ox 96 10/14/23 07:19 FiO2 Intake & Output 10/13/23 10/14/23 10/14/23 18:59 06:59 18:59 Intake Total 900 Balance 900 Intake: Intake, IV Titration 900 Amount Lactated Ringers 1,000 ml 900 @ 125 mls/hr IV .Q8H ONE Rx#:[id number] Other: # Voids 3 - Exam Head normocephalic Neck supple Lungs clear to auscultation bilaterally no wheezing or crackles Heart regular rate and rhythm S1-S2, no rub or gallop Abdomen is soft. Dressing is clean dry and intact Extremities no edema Neuro alert and orientated to 3 - Labs CBC & Chem 7: 10/14/23 06:03 10/14/23 06:03 Labs: Abnormal Lab Results - Last 24 Hours (Table) 10/14/23 10/14/23 Range/Units 06:03 06:03 RBC 2.82 L (4.10-5.20) X 10*6/uL Hgb 8.2 L (12.0-15.0) g/dL Hct 25.8 L (37.2-46.3) % MCHC 31.8 L (32.0-37.0) g/dL Immature Gran # 0.05 H (0.00-0.04) X 10*3/uL Lymphocytes # 0.51 L (0.90-5.00) X 10*3/uL BUN/Creatinine Ratio 31.00 H (12.00-20.00) Ratio Glucose 119 H (70-110) mg/dL Calcium 8.5 L (8.7-10.3) mg/dL Total Protein 4.8 L (6.2-8.2) g/dL Albumin 3.2 L (3.8-4.9) g/dL Assessment and Plan Assessment: 1. Status post diagnostic laparoscopy with lysis of adhesions on 10/12/2023 2. History of small bowel obstructions most recent in September 2023 3. History of abdominal surgeries with multiple resections 4. History of GERD 5. History of hypothyroidism 6. History of hyperlipidemia 7. History of essential hypertension 8. History of degenerative disc disease Thank you for this consultation we will continue to follow patient closely throughout stay
[2023-10-14 15:19] LABS: % Iron Saturation 7.59 (12.00-45.00)
[2023-10-15] MEDS: risperiDONE 0.25 MG TAB PO SCH ×2 (08:30→20:53)
[2023-10-15] MEDS: LEVOTHYROXINE 100 MCG TAB PO SCH (08:30)
[2023-10-15] MEDS: PANTOPRAZOLE 40 MG TABLET PO SCH (08:30)
[2023-10-15] MEDS: ASPIRIN 81 MG PO SCH (08:30)
[2023-10-15] MEDS: amLODIPine 2.5 MG TAB PO SCH (08:30)
[2023-10-15] MEDS: ENOXAPARIN 40 MG/0.4 ML SYRINGE SQ SCH (08:30)
[2023-10-15] MEDS: DONEPEZIL 5 MG TAB PO SCH (08:30)
[2023-10-15] MEDS: SERTRALINE 50 MG TAB PO SCH (08:31)
[2023-10-15 09:24] LABS: Basophils # (A) 0.01 X 10*3/uL (0.00-0.10); Basophils % (A) 0.1 %; Eosinophils % (A) 4.2 %; HCT 25.4 % (37.2-46.3); HGB 8.2 g/dL (12.0-15.0); Lymphocytes # (A) 0.66 X 10*3/uL (0.90-5.00); Lymphocytes % (A) 9.2 %; MCH 29.3 pg (27.0-32.0); MCHC 32.3 g/dL (32.0-37.0); MCV 90.7 FL (80.0-97.0); Monocytes # (A) 0.57 X 10*3/uL (0.20-1.00); Monocytes % (A) 7.9 %; NRBC Per 100 WBC 0 X 10*3/uL (0.00-0.01); Neutrophils # (A) 5.64 X 10*3/uL (1.80-7.70); Neutrophils % (A) 78.3 %; Platelet Count 149 X 10*3/uL (140-440)
[2023-10-15] MEDS: HYDROcodone/APAP 5-325MG 1 EACH TAB PO PRN ×2 (10:48→17:43)
--- NOTE | 2023-10-15 11:35 | P.PN ---
Subjective Progress Note Date: 10/15/23 CHIEF COMPLAINT: Adhesions HISTORY OF PRESENT ILLNESS: Patient postop day #3 status post diagnostic lapar oscopy with lysis of adhesions. Patient reports having flatus and bowel movement yesterday. She denies any nausea or vomiting. Afebrile. WBC 7.2 hemoglobin 8.2. Patient evaluated by PT OT and social work. Patient is to return home with support from front at discharge. PHYSICAL EXAM: VITAL SIGNS: Reviewed. GENERAL: Well-developed in no acute distress. ABDOMEN: Soft. Nondistended. Midline Incision dressing clean dry and intact. NEUROLOGIC: Alert and oriented. Cranial nerves II through XII grossly intact. ASSESSMENT: 1. Partial small bowel obstruction status post diagnostic laparoscopy with lysis of adhesions PLAN: -Advance diet to clear liquids -Add [place] for oral pain medication -Continue pain management -Encourage patient to ambulate -Encouraged patient to use incentive spirometer -Discontinue IV fluids -DVT prophylaxis Lovenox Physician Director Of Hospitality note has been reviewed by physician. Signing provider agrees with the documented findings, assessment, and plan of care. Objective - Vital Signs Vital signs: Vital Signs Temp 98.0 F 10/15/23 07:22 Pulse 63 10/15/23 07:22 Resp 19 10/15/23 07:22 BP 131/56 10/15/23 07:22 Pulse Ox 96 10/15/23 07:22 FiO2 Intake & Output 10/14/23 10/15/23 10/15/23 18:59 06:59 18:59 Intake Total 1250 Balance 1250 Intake: IV 1250 Lactated Ringers 1,000 ml 1250 @ 125 mls/hr IV .Q8H [facility] Rx#:[id number] Other: # Voids 1 3 - Labs CBC & Chem 7: 10/15/23 05:39 10/14/23 06:03 Labs: Abnormal Lab Results - Last 24 Hours (Table) 10/14/23 10/14/23 10/15/23 Range/Units 06:03 12:38 05:39 RBC 2.80 L (4.10-5.20) X 10*6/uL Hgb 8.2 L (12.0-15.0) g/dL Hct 25.4 L (37.2-46.3) % Lymphocytes # 0.66 L (0.90-5.00) X 10*3/uL BUN/Creatinine Ratio 31.00 H (12.00-20.00) Ratio Glucose 119 H (70-110) mg/dL Calcium 8.5 L (8.7-10.3) mg/dL Iron 17 L (50-170) UG/DL TIBC 224 L (228-460) UG/DL % Saturation 7.59 L (12.00-45.00) Transferrin 160.0 L (204.0-354.0) mg/dL Total Protein 4.8 L (6.2-8.2) g/dL Albumin 3.2 L (3.8-4.9) g/dL
[2023-10-15] MEDS: ATORVASTATIN 10 MG TAB PO SCH (17:44)
[2023-10-15] MEDS ORDERED: SODIUM FERRIC GLUCONAT-SUCROSE 125 MG in SODIUM CHLORIDE 0.9% 100 ML IVPB ONE (17:56)
--- NOTE | 2023-10-15 18:18 | P.PN ---
Subjective Progress Note Date: 10/15/23 This is a 78-year-old female patient who presented for an elective diagnostic laparoscopic and lysis of adhesions with Dr. huffman on 10/12/2023. Patient was recently admitted and treated for small bowel obstruction in September 2023. Patient has a history of recurring small bowel obstructions with previous abdominal surgeries and resections. Additional medical history includes hyperthyroidism, hyperlipidemia, hypertension and degenerative disc disease. During procedure patient was noted to have extensive adhesions. At this time patient is resting comfortably in bed. Patient remains nothing by mouth per surgical services. Patient denies chest pain or shortness of breath. Patient denies nausea vomiting or diarrhea. Patient denies any urinary burning or frequency. Current vital signs temp 98.4, heart rate 76, respiratory rate 18, blood pressure 103/52 with pulse ox of 95% on room air. Home medications ordered. Repeat labs ordered On 10/14/2023 patient is alert and oriented 3 currently resting in bed. Will consult PT OT services. Current vital signs temp 97.5, heart rate 62, respiratory rate 18, blood pressure 130/60 with a pulse ox 96% on room air. Hemoglobin 8.2 we'll check iron studies and continue to monitor. Patient denies chest pain or shortness of breath. Patient denies nausea vomiting or diarrhea. Patient denies any urinary burning or frequency. On 10/15/2023 patient was seen and examined on the medical floor she is alert and oriented 3 in no apparent distress there is no fever or chills no headache or dizziness no chest pain no shortness of breath no cough no nausea or vomiting no abdominal pain no diarrhea and no urinary symptoms, she is able to tolerate diet well, she is able to ambulate with walker, temperature is 97.3 pulse 61 respiration 16 blood pressure 126/58 also ox 95% on room air white blood count 7.2 hemoglobin 8.2 platelet count 149 iron level is low at 17 with low TIBC patient will be given 1 dose of IV Venofer Objective - Vital Signs Vital signs: Vital Signs Temp 98.1 F 10/15/23 13:07 Pulse 65 10/15/23 13:07 Resp 14 10/15/23 13:07 BP 133/60 10/15/23 13:07 Pulse Ox 97 10/15/23 13:07 FiO2 Intake & Output 10/14/23 10/15/23 10/15/23 18:59 06:59 18:59 Intake Total 1250 Balance 1250 Intake: IV 1250 Lactated Ringers 1,000 ml 1250 @ 125 mls/hr IV .Q8H [facility] Rx#:[id number] Other: # Voids 1 3 2 - Exam Head normocephalic Neck supple Lungs clear to auscultation bilaterally no wheezing or crackles Heart regular rate and rhythm S1-S2, no rub or gallop Abdomen is soft. Dressing is clean dry and intact Extremities no edema Neuro alert and orientated to 3 - Labs CBC & Chem 7: 10/15/23 05:39 10/14/23 06:03 Labs: Abnormal Lab Results - Last 24 Hours (Table) 10/15/23 Range/Units 05:39 RBC 2.80 L (4.10-5.20) X 10*6/uL Hgb 8.2 L (12.0-15.0) g/dL Hct 25.4 L (37.2-46.3) % Lymphocytes # 0.66 L (0.90-5.00) X 10*3/uL Assessment and Plan Assessment: 1. Status post diagnostic laparoscopy with lysis of adhesions on 10/12/2023 2. History of small bowel obstructions most recent in September 2023 3. History of abdominal surgeries with multiple resections 4. History of GERD 5. History of hypothyroidism 6. History of hyperlipidemia 7. History of essential hypertension 8. History of degenerative disc disease Thank you for this consultation we will continue to follow patient closely throughout stay
[2023-10-16] MEDS: HYDROcodone/APAP 5-325MG 1 EACH TAB PO PRN (03:43)
[2023-10-16 08:38] VITALS: BP 161/78; PULSE 64; RESP 19; TEMP 97.8
[2023-10-16] MEDS: SERTRALINE 50 MG TAB PO SCH (09:14)
[2023-10-16] MEDS: amLODIPine 2.5 MG TAB PO SCH (09:14)
[2023-10-16] MEDS: LEVOTHYROXINE 100 MCG TAB PO SCH (09:14)
[2023-10-16] MEDS: ENOXAPARIN 40 MG/0.4 ML SYRINGE SQ SCH (09:14)
[2023-10-16] MEDS: PANTOPRAZOLE 40 MG TABLET PO SCH (09:14)
[2023-10-16] MEDS: ASPIRIN 81 MG PO SCH (09:14)
[2023-10-16] MEDS: risperiDONE 0.25 MG TAB PO SCH (09:16)
[2023-10-16] MEDS: DONEPEZIL 5 MG TAB PO SCH (09:16)
--- NOTE | 2023-10-16 10:07 | P.DS ---
Providers Date of admission: 10/12/23 11:00 Expected date of discharge: 10/16/23 Attending physician: Deng Camara Consults: 10/12/23 15:08 Consult Physician Routine Consulting Provider: Maria Eugenia Hooper Consult Reason/Comments: medical management Do you want consulting provider notified?: Yes Primary care physician: Stated None Hospital Course: Discharge diagnosis 1. Partial small bowel obstruction status post diagnostic laparoscopy with lysis of adhesions Hospital course This is a 78-year-old female with a history of partial small bowel check them. She is status post diagnostic laparoscopy with lysis of adhesions. Patient tolerated surgery well. Her pain is controlled. She is having bowel movements. She's tolerating diet. She's afebrile. She has been up and ambulating. She is stable for discharge. Please refer to chart for any further details. Physician [employer] Mainframe Developer note has been reviewed by physician. Signing provider agrees with the documented findings, assessment, and plan of care. Patient Condition at Discharge: Stable Plan - Discharge Summary Discharge Rx Participant: Yes New Discharge Prescriptions: New Docusate [Colace] 100 mg PO BID #30 capsule Ibuprofen [Motrin] 600 mg PO Q8HR PRN #30 tab PRN Reason: Pain HYDROcodone/APAP 5-325MG [[place] 5-325] 1 tab PO Q6HR PRN 3 Days #12 tab PRN Reason: Pain Continue Oxybutynin Chloride [oxyBUTYnin chloride ER] 10 mg PO QAM Donepezil [Aricept] 5 mg PO QAM Aspirin EC [Ecotrin Low Dose] 81 mg PO DAILY amLODIPine [Norvasc] 2.5 mg PO QAM Sertraline [Zoloft] 50 mg PO QAM Levothyroxine Sodium [Synthroid] 100 mcg PO QAM Rosuvastatin Calcium 5 mg PO TUTH Pantoprazole Sodium [Protonix] 40 mg PO QAM risperiDONE [RisperDAL] 0.25 mg PO BID 30 Days #60 tab Discharge Medication List amLODIPine [Norvasc] 2.5 mg PO QAM 05/17/21 [History] Aspirin EC [Ecotrin Low Dose] 81 mg PO DAILY 03/13/23 [History] Donepezil [Aricept] 5 mg PO QAM 03/13/23 [History] Levothyroxine Sodium [Synthroid] 100 mcg PO QAM 03/13/23 [History] Oxybutynin Chloride [oxyBUTYnin chloride ER] 10 mg PO QAM 03/13/23 [History] Sertraline [Zoloft] 50 mg PO QAM 03/13/23 [History] Pantoprazole Sodium [Protonix] 40 mg PO QAM 07/16/23 [History] Rosuvastatin Calcium 5 mg PO TUTH 07/16/23 [History] risperiDONE [RisperDAL] 0.25 mg PO BID 30 Days #60 tab 07/18/23 [Rx] Docusate [Colace] 100 mg PO BID #30 capsule 10/16/23 [Rx] HYDROcodone/APAP 5-325MG [[place] 5-325] 1 tab PO Q6HR PRN 3 Days #12 tab 10/16/23 [Rx] Ibuprofen [Motrin] 600 mg PO Q8HR PRN #30 tab 10/16/23 [Rx] Follow up Appointment(s)/Referral(s): Deng Camara MD [STAFF PHYSICIAN] - 10/20/23 3:00 pm Activity/Diet/Wound Care/Special Instructions: No driving while taking [place] No lifting over 10 pounds Shower daily. No soaking or tub baths for 2 weeks Very light activity until you are reevaluated at your follow up appointment with your surgeon Discharge Disposition: HOME WITH HOME HEALTH SERVICES
[2023-10-16 10:15] VITALS: BMI 16.5
--- NOTE | 2023-10-16 10:52 | P.PN ---
Subjective Progress Note Date: 10/16/23 This is a 78-year-old female patient who presented for an elective diagnostic laparoscopic and lysis of adhesions with Dr. huffman on 10/12/2023. Patient was recently admitted and treated for small bowel obstruction in September 2023. Patient has a history of recurring small bowel obstructions with previous abdominal surgeries and resections. Additional medical history includes hyperthyroidism, hyperlipidemia, hypertension and degenerative disc disease. During procedure patient was noted to have extensive adhesions. At this time patient is resting comfortably in bed. Patient remains nothing by mouth per surgical services. Patient denies chest pain or shortness of breath. Patient denies nausea vomiting or diarrhea. Patient denies any urinary burning or frequency. Current vital signs temp 98.4, heart rate 76, respiratory rate 18, blood pressure 103/52 with pulse ox of 95% on room air. Home medications ordered. Repeat labs ordered On 10/14/2023 patient is alert and oriented 3 currently resting in bed. Will consult PT OT services. Current vital signs temp 97.5, heart rate 62, respiratory rate 18, blood pressure 130/60 with a pulse ox 96% on room air. Hemoglobin 8.2 we'll check iron studies and continue to monitor. Patient denies chest pain or shortness of breath. Patient denies nausea vomiting or diarrhea. Patient denies any urinary burning or frequency. On 10/15/2023 patient was seen and examined on the medical floor she is alert and oriented 3 in no apparent distress there is no fever or chills no headache or dizziness no chest pain no shortness of breath no cough no nausea or vomiting no abdominal pain no diarrhea and no urinary symptoms, she is able to tolerate diet well, she is able to ambulate with walker, temperature is 97.3 pulse 61 respiration 16 blood pressure 126/58 also ox 95% on room air white blood count 7.2 hemoglobin 8.2 platelet count 149 iron level is low at 17 with low TIBC patient will be given 1 dose of IV Venofer On 10/16/2023 patient is alert and oriented 3. Per surgical services at speed discharged today. Patient has been tolerating full liquid diet. Hemoglobin stable at 8.2. Current vital signs temp 97.8, heart rate 64, respiratory rate 19, blood pressure 161/78 with a pulse ox of 98% on room Objective - Vital Signs Vital signs: Vital Signs Temp 97.8 F 10/16/23 06:55 Pulse 64 10/16/23 06:55 Resp 19 10/16/23 06:55 BP 161/78 10/16/23 06:55 Pulse Ox 98 10/16/23 06:55 FiO2 Intake & Output 10/15/23 10/16/23 10/16/23 18:59 06:59 18:59 Intake Total 360 Balance 360 Weight 46.4 kg Intake: Oral 360 Other: # Voids 2 2 1 - Exam Head normocephalic Neck supple Lungs clear to auscultation bilaterally no wheezing or crackles Heart regular rate and rhythm S1-S2, no rub or gallop Abdomen is soft. Dressing is clean dry and intact Extremities no edema Neuro alert and orientated to 3 - Labs CBC & Chem 7: 10/15/23 05:39 10/14/23 06:03 Assessment and Plan Assessment: 1. Status post diagnostic laparoscopy with lysis of adhesions on 10/12/2023 2. History of small bowel obstructions most recent in September 2023 3. History of abdominal surgeries with multiple resections 4. History of GERD 5. History of hypothyroidism 6. History of hyperlipidemia 7. History of essential hypertension 8. History of degenerative disc disease Thank you for this consultation we will continue to follow patient closely throughout stay
[2023-10-16 11:13] LABS: Basophils # (A) 0.02 X 10*3/uL (0.00-0.10); Basophils % (A) 0.3 %; Eosinophils # (A) 0.39 X 10*3/uL (0.04-0.35); Eosinophils % (A) 5.2 %; HCT 26.4 % (37.2-46.3); HGB 8.6 g/dL (12.0-15.0); Lymphocytes # (A) 0.72 X 10*3/uL (0.90-5.00); Lymphocytes % (A) 9.5 %; MCH 29.3 pg (27.0-32.0); MCHC 32.6 g/dL (32.0-37.0); MCV 89.8 FL (80.0-97.0); Mean Platelet Volume 10.8 FL (9.5-12.2); Monocytes # (A) 0.71 X 10*3/uL (0.20-1.00); Monocytes % (A) 9.4 %; NRBC Per 100 WBC 0 X 10*3/uL (0.00-0.01); Neutrophils # (A) 5.68 X 10*3/uL (1.80-7.70); Neutrophils % (A) 75.2 %; Platelet Count 191 X 10*3/uL (140-440); RBC 2.94 X 10*6/uL (4.10-5.20); WBC 7.55 X 10*3/uL (4.50-10.00)
[2023-10-16 11:47] LABS: ALT 12 U/L (8-44); AST 14 U/L (13-35); Albumin 3.2 g/dL (3.8-4.9); Albumin/Globulin Ratio 2.13 Ratio (1.60-3.17); Alkaline Phosphatase 83 U/L (41-126); BUN/Creat Ratio 16.17 Ratio (12.00-20.00); Blood Urea Nitrogen 9.7 mg/dL (9.0-27.0); Calcium 8.3 mg/dL (8.7-10.3); Carbon Dioxide 25.9 mmol/L (21.6-31.8); Chloride 105 mmol/L (96-109); Globulin 1.5 g/dL (1.6-3.3); Glucose 112 mg/dL (70-110); Potassium 3.3 mmol/L (3.5-5.5); Sodium 141 mmol/L (135-145); Total Bilirubin 0.9 mg/dL (0.3-1.2); Total Protein 4.7 g/dL (6.2-8.2)
--- NOTE | 2023-10-21 15:27 | CDI ---
Documentation Clarification Form Date: 10/21/2023 03:15:54 PM From: Dulce Arzola RN, CCDS Email: [email or web address] Admit Date: 10/12/2023 11:00:00 AM Patient Name: Celeste Grijalva Visit Number: [id number] Discharge Date: 10/16/2023 03:58:00 PM ATTENTION: The Clinical Documentation Specialists (CDI) and [facility] Coding Staff appreciate your assistance in clarifying documentation. Please respond to the clarification below the line at the bottom and electronically sign. The CDI & [facility] Coding staff will review the response and follow-up if needed. Please note: Queries are made part of the Legal Health Record. If you have any questions, please contact the author of this message via ITS. Dr. Maria Eugenia Hooper The Patient has a documented BMI of 16.5 by the Registered Dietitian. Additional clarification is requested. History/Risk Factors: recurring small bowel obstructions with previous abdominal surgeries and resections. HTN, HLD, hyperthyroidism. Presented for elective diagnostic laparoscopic and lysis of adhesions. Clinical Indicators: Patients weight is 46.4kg Patients height is 5ft 6in Calculated BMI is 16.5 10/16 assessment: "Consumes 25-50% of his food. Underweight, inadequate energy intake." Treatments: low fiber diet. Ensure compact TID, increase po intake to 75% Dietary Consult: see above Please clarify, is there is an additional diagnosis that is clinically appropriate for this patient? [ ] Underweight [ ] Malnutrition, (further specify severity and type) [ ] Other, please specify [ ] Unable to determine MTDD
--- NOTE | 2023-10-23 10:51 | CDI ---
Documentation Clarification Form Date: 10/21/2023 03:15:00 PM From: Dulce Arzola RN, CCDS Email: [email or web address] Admit Date: 10/12/2023 11:00:00 AM Patient Name: Celeste Grijalva Visit Number: [id number] Discharge Date: 10/16/2023 03:58:00 PM ATTENTION: The Clinical Documentation Specialists (CDI) and [facility] Coding Staff appreciate your assistance in clarifying documentation. Please respond to the clarification below the line at the bottom and electronically sign. The CDI & [facility] Coding staff will review the response and follow-up if needed. Please note: Queries are made part of the Legal Health Record. If you have any questions, please contact the author of this message via ITS. Dr. Maria Eugenia Hooper The Patient has a documented BMI of 16.5 by the Registered Dietitian. Additional clarification is requested. History/Risk Factors: recurring small bowel obstructions with previous abdominal surgeries and resections. HTN, HLD, hyperthyroidism. Presented for elective diagnostic laparoscopic and lysis of adhesions. Clinical Indicators: Patients weight is 46.4kg Patients height is 5ft 6in Calculated BMI is 16.5 10/16 assessment: "Consumes 25-50% of his food. Underweight, inadequate energy intake." Treatments: low fiber diet. Ensure compact TID, increase po intake to 75% Dietary Consult: see above Please clarify, is there is an additional diagnosis that is clinically appropriate for this patient? [x ] Underweight [ ] Malnutrition, (further specify severity and type) [ ] Other, please specify [ ] Unable to determine MTDD
== END 2023-10-16 15:58 | disposition home health service (06) | DRG 336 ==
LOC: OR 05:40 → 4SSUR 09:48 → OR 10:55 → OBSVTOIN 11:00 → 4SSUR 11:00
PROVIDERS: ADMIT Surgery; ATTEND Surgery
PROC: 0DNW0ZZ Release Peritoneum, Open Approach (ICD-10-PCS; principal; 2023-10-12 07:30)
DX: K56.609 Unspecified intestinal obstruction, unspecified as to partial versus complete obstruction (principal); Z68.1 Body mass index [BMI] 19.9 or less, adult; E03.9 Hypothyroidism, unspecified; E78.5 Hyperlipidemia, unspecified; I10 Essential (primary) hypertension; F03.90 Unspecified dementia, unspecified severity, without behavioral disturbance, psychotic disturbance, mood disturbance, and anxiety; Z79.82 Long term (current) use of aspirin; Z79.890 Hormone replacement therapy; Z82.49 Family history of ischemic heart disease and other diseases of the circulatory system; Z60.2 Problems related to living alone; K21.9 Gastro-esophageal reflux disease without esophagitis; L40.9 Psoriasis, unspecified; Z98.1 Arthrodesis status; Z90.49 Acquired absence of other specified parts of digestive tract; R63.6 Underweight; E55.9 Vitamin D deficiency, unspecified; Z71.3 Dietary counseling and surveillance; Z28.310 Unvaccinated for COVID-19; Z88.1 Allergy status to other antibiotic agents; Z88.5 Allergy status to narcotic agent; Z86.14 Personal history of Methicillin resistant Staphylococcus aureus infection; Z96.641 Presence of right artificial hip joint
CPT/HCPCS: 80053; 82746; 83540; 83550; 85025

== ENCOUNTER 2023-10-17 19:19 | Inpatient (IN) | payer MEDICARE ==
[2023-10-17] MEDS ORDERED: SODIUM CHLORIDE 0.9% 500 ML 500 ML IV STA (19:42)
[2023-10-17] MEDS ORDERED: PANTOPRAZOLE 40 MG/10 ML VIAL IVP STA (19:42)
[2023-10-17] MEDS ORDERED: SODIUM CHLORIDE 0.9% 1,000 ML IV STA ×2 (19:42→23:13)
[2023-10-17] MEDS ORDERED: HYDROmorphone 0.5 MG/0.5 ML SYRINGE IVP STA (19:43)
--- NOTE | 2023-10-17 19:46 | ED ---
General Adult HPI - General Source: patient, EMS, RN notes reviewed Mode of arrival: EMS Limitations: no limitations <Benedict Dasilva - Last Filed: 10/17/23 20:20> <Thierno Valdovinos - Last Filed: 10/18/23 01:40> - General Stated complaint: Abd Pain Time Seen by Provider: 10/17/23 19:27 - History of Present Illness Initial comments: Patient is a pleasant 78-year-old female presenting to the emergency department with concerns with abdominal pain. Onset of symptoms was 3 or 4 days ago. Patient states it was after she was discharged from the hospital. A fernandez was recently in the hospital with bowel surgery with Dr. Camara. Patient is u nclear what procedure she had done. Patient does feel dry and thirsty. Patient has had decreased oral intake. Abdominal discomfort is diffuse. (Benedict Dasilva) - Related Data Home Medications Medication Instructions Recorded Confirmed amLODIPine [Norvasc] 2.5 mg PO QAM 05/17/21 10/08/23 Aspirin EC [Ecotrin Low Dose] 81 mg PO DAILY 03/13/23 10/09/23 Donepezil [Aricept] 5 mg PO QAM 03/13/23 10/08/23 Levothyroxine Sodium [Synthroid] 100 mcg PO QAM 03/13/23 10/08/23 Oxybutynin Chloride [oxyBUTYnin 10 mg PO QAM 03/13/23 10/08/23 chloride ER] Sertraline [Zoloft] 50 mg PO QAM 03/13/23 10/08/23 Pantoprazole Sodium [Protonix] 40 mg PO QAM 07/16/23 10/08/23 Rosuvastatin Calcium 5 mg PO TUTH 07/16/23 10/08/23 Previous Rx's Medication Instructions Recorded risperiDONE [RisperDAL] 0.25 mg PO BID 30 Days #60 tab 07/18/23 Docusate [Colace] 100 mg PO BID #30 capsule 10/16/23 HYDROcodone/APAP 5-325MG [[place] 1 tab PO Q6HR PRN 3 Days #12 tab 10/16/23 5-325] Ibuprofen [Motrin] 600 mg PO Q8HR PRN #30 tab 10/16/23 Allergies Allergy/AdvReac Type Severity Reaction Status Date / Time clindamycin Allergy Rash/Hives Verified 10/08/23 09:32 atorvastatin calcium AdvReac LEG CRAMPS Verified 10/08/23 09:32 [From Lipitor] morphine AdvReac Nausea & Verified 10/08/23 09:32 Vomiting Review of Systems ROS Other: All systems not noted in ROS Statement are negative. Constitutional: Denies: fever Eyes: Denies: eye pain ENT: Denies: ear pain Respiratory: Denies: cough Gastrointestinal: Reports: as per HPI, abdominal pain, nausea <Benedict Dasilva - Last Filed: 10/17/23 20:20> ROS Other: All systems not noted in ROS Statement are negative. <Thierno Valdovinos - Last Filed: 10/18/23 01:40> ROS Statement: Those systems with pertinent positive or pertinent negative responses have been documented in the HPI. Past Medical History Past Medical History: Chest Pain / Angina, Dementia, GERD/Reflux, Hyperlipidemia, Hypertension, Osteoarthritis (OA), Skin Disorder, Thyroid Disorder Additional Past Medical History / Comment(s): Hx. pancreatitis with pancreatic cysts, psoriasis Lt ankle, angina - none recent, vitamin D deficiency, degen erative disc disease of the cervical & lumbar spine, diverticulitis. bronchitis, uterine fibroids, falls,hiatal hernia, bowel obstructions, UTI, hallucinations, falls. History of Any Multi-Drug Resistant Organisms: None Reported, MRSA, Other MDRO Date of last positivie culture/infection: 2013 in [place] [facility] MDRO Source:: spider bite on lt. leg Past Surgical History: Adenoidectomy, Back Surgery, Bowel Resection, Cholecystectomy, Hernia Repair, Hysterectomy, Orthopedic Surgery, Tonsillectomy Additional Past Surgical History / Comment(s): Anterior cervical discectomy with fusion(total 3 sx, has wire in neck) , lumbar fusion 3-screws in back, Rt. hip surgery(not a hip replacement), Left 1st rib removal r/t thoracic outlet syndrome, Hiatal hernia surg., Bilateral cataract surgery with lens implant, Lt elbow tendon release, Sx on gums d/t infection, dental implant, sigmoid resection Past Anesthesia/Blood Transfusion Reactions: No Reported Reaction Additional Past Anesthesia/Blood Transfusion Reaction / Comment(s): blood transfusion in 1970-no reaction Past Psychological History: Depression Additional Psychological History / Comment(s): Lives in apt. alone, friends assist her w/ meals,medications. Dementia is worsening and is awaiting Assisted Living Care. 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 Smoking Status: Never smoker Past Alcohol Use History: None Reported Past Drug Use History: None Reported - Past Family History Father History Unknown: Yes Family Medical History: Coronary Artery Disease (CAD) Additional Family Medical History / Comment(s): aortic aneurysm at 72 Mother Family Medical History: CVA/TIA Brother(s) Family Medical History: No Reported History Sister(s) Family Medical History: Vascular Disorder Son(s) Family Medical History: No Reported History Daughter(s) Family Medical History: Unable to Obtain <Benedict Dasilva - Last Filed: 10/17/23 20:20> General Exam Limitations: no limitations General appearance: alert, in no apparent distress Head exam: Present: normocephalic Eye exam: Present: normal appearance ENT exam: Present: mucous membranes dry Neck exam: Present: normal inspection Respiratory exam: Present: normal lung sounds bilaterally Cardiovascular Exam: Present: regular rate, normal rhythm GI/Abdominal exam: Present: soft, tenderness (Mild diffuse tenderness, moderate tenderness epigastrium and left lower). Absent: distended Extremities exam: Present: normal inspection Neurological exam: Present: alert Psychiatric exam: Present: normal affect, normal mood Skin exam: Present: normal color <Benedict Dasilva - Last Filed: 10/17/23 20:20> Course Vital Signs 10/17/23 10/17/23 10/17/23 19:43 22:12 22:41 Temperature 97.0 F L 97.0 F L Pulse Rate 111 H 107 H Respiratory 20 24 Rate Blood Pressure 122/58 104/53 O2 Sat by Pulse 95 95 Oximetry 10/18/23 10/18/23 10/18/23 00:04 00:09 00:31 Temperature 97.3 F L Pulse Rate 107 H 105 H 101 H Respiratory 18 18 Rate Blood Pressure 85/54 94/53 91/51 O2 Sat by Pulse 97 97 Oximetry EKG Findings - EKG Results: EKG: interpreted by ERMD, sinus rhythm, normal axis, normal QRS, normal ST/T EKG shows: tachycardia <Benedict Dasilva - Last Filed: 10/17/23 20:20> Medical Decision Making <Benedict Dasilva - Last Filed: 10/17/23 20:20> - Lab Data Result diagrams: 10/17/23 20:15 10/17/23 20:15 <Thierno Valdovinos - Last Filed: 10/18/23 01:40> - Medical Decision Making Was pt. sent in by a medical professional or institution (MATTHIEU Flanagan, TUGGER OPERATOR, urgent care, hospital, or senior living...) When possible be specific @ -[No] Did you speak to anyone other than the patient for history (EMS, parent, family, police, friend...)? What history was obtained from this source @ -[No] Did you review nursing and triage notes (agree or disagree)? Why? @ -[I reviewed and agree with nursing and triage notes] Were old charts reviewed (outside hosp., previous admission, EMS record, old EKG, old radiological studies, urgent care reports/EKG's, senior living records)? Report findings @ -Previous admission reviewed Differential Diagnosis (chest pain, altered mental status, abdominal pain women, abdominal pain men, vaginal bleeding, weakness, fever, dyspnea, syncope, headache, dizziness, GI bleed, back pain, seizure, CVA, palpatations, mental h ealth, musculoskeletal)? @ -Differential Abdominal Pain Women: Appendicitis, Cholecystitis, diverticulosis, ischemic bowel, pancreatitis, hepatitis, UTI, gastroenteritis, AAA, incarcerated hernia, bowel obstruction, constipation, inflammatory bowel, hepatitis, peptic ulcer disease, splenic infarction, perforated viscus, vulvitis, ovarian torsion, PID, kidney stone, placenta abruption, this is not meant to be an all-inclusive list EKG interpreted by me (3pts min.). @ -[As above] X-rays interpreted by me (1pt min.). @ -[None done] CT interpreted by me (1pt min.). @ -Test is still pending at this time U/S interpreted by me (1pt. min.). @ -[None done] What testing was considered but not performed or refused? (CT, X-rays, U/S, labs)? Why? @ -[None] What meds were considered but not given or refused? Why? @ -[None] Did you discuss the management of the patient with other professionals (professionals i.e. MATTHIEU Flanagan, TUGGER OPERATOR, lab, RT, psych nurse, licensed clinical social worker, maxillofacial prosthetics dentist, teacher, chief digital officer, hospice case manager)? Give summary @ -[No] Was smoking cessation discussed for >3mins.? @ -[No] Was critical care preformed (if so, how long)? @ -[No] Were there social determinants of health that impacted care today? How? (Homeles sness, low income, unemployed, alcoholism, drug addiction, transportation, low edu. Level, literacy, decrease access to med. care, snf, rehab)? @ -[No] Was there de-escalation of care discussed even if they declined (Discuss DNR or withdrawal of care, Hospice)? DNR status @ -[No] What co-morbidities impacted this encounter? (DM, HTN, Smoking, COPD, CAD, Cancer, CVA, ARF, Chemo, Hep., AIDS, mental health diagnosis, sleep apnea, morbid obesity)? @ -[None] Was patient admitted / discharged? Hospital course, mention meds given and route, prescriptions, significant lab abnormalities, going to OR and other pertinent info. @ -Case endorsed to Dr. Valdovinos at [facility]. (Benedict Dasilva) Patient signed out to me pending results of CT imaging. Presents with abdominal pain. Recently had laparotomy with lysis of adhesions. This was done by Dr. Camara on 10/12. Presents for further pain. Patient was pending CT imaging. Labs were remarkable for a leukopenia of 3.0. Remainder of labs unremarkable. Lactic acid is 2.9. CT imaging as interpreted by myself reveals pneumoperitoneum likely secondary to recent procedure as well as postop ileus versus SBO. I evaluated the patient. NG tube will be placed. Patient empirically started on Zosyn and given additional IV fluids. Patient was in agreement this plan. I spoke with the on-call surgeon Dr. Quintana who reviewed imaging and was in agreement with the plan. Dr. Quintana recommended I admit under Dr. Camara who starts again tomorrow. Patient was in agreement this plan. Patient admitted in stable condition. Diagnosis/symptom? @ -Postop pneumoperitoneum, postop ileus versus small bowel obstruction Acute, or Chronic, or Acute on Chronic? @ -Acute Uncomplicated (without systemic symptoms) or Complicated (systemic symptoms)? @ -complicated Side effects of treatment? @ -none Exacerbation, Progression, or Severe Exacerbation] @ -no Poses a threat to life or bodily function? @ -Yes (Thierno Valdovinos) - Lab Data Lab Results 10/17/23 10/17/23 10/17/23 Range/Units 20:15 20:15 20:15 WBC 3.0 L (3.8-10.6) k/uL RBC 3.94 (3.80-5.40) m/uL Hgb 12.1 (11.4-16.0) gm/dL Hct 35.6 (34.0-46.0) % MCV 90.4 (80.0-100.0) fL MCH 30.6 (25.0-35.0) pg MCHC 33.9 (31.0-37.0) g/dL RDW 14.8 (11.5-15.5) % Plt Count 339 (150-450) k/uL MPV 8.1 Neutrophils % (Manual) 39 % Band Neuts % (Manual) 45 % Lymphocytes % (Manual) 6 % Monocytes % (Manual) 8 % Metamyelocytes % 2 % Neutrophils # (Manual) 2.50 (1.3-7.7) k/uL Lymphocytes # (Manual) 0.18 L (1.0-4.8) k/uL Monocytes # (Manual) 0.24 (0-1.0) k/uL Metamyelocytes # (Man) 0.06 H (0) k/uL Nucleated RBCs 0 (0-0) /100 WBC Manual Slide Review Performed Anisocytosis (manual) Present Ovalocytes Present Crenated Cell Present PT 10.9 (10.0-12.5) sec INR 1.0 (<1.2) APTT 24.9 (22.0-30.0) sec Sodium 135 L (137-145) mmol/L Potassium 3.8 (3.5-5.1) mmol/L Chloride 104 (98-107) mmol/L Carbon Dioxide 20 L (22-30) mmol/L Anion Gap 11 mmol/L BUN 18 H (7-17) mg/dL Creatinine 0.82 (0.52-1.04) mg/dL Est GFR (CKD-EPI)AfAm 79 (>60 ml/min/1.73 sqM) Est GFR (CKD-EPI)NonAf 68 (>60 ml/min/1.73 sqM) Glucose 236 H (74-99) mg/dL Plasma Lactic Acid John (0.7-2.0) mmol/L Calcium 8.6 (8.4-10.2) mg/dL Total Bilirubin 1.3 (0.2-1.3) mg/dL AST 23 (14-36) U/L ALT 17 (4-34) U/L Alkaline Phosphatase 91 (38-126) U/L Total Protein 4.9 L (6.3-8.2) g/dL Albumin 2.8 L (3.5-5.0) g/dL Amylase 55 (30-110) U/L Lipase 48 (23-300) U/L 10/18/23 Range/Units 00:00 WBC (3.8-10.6) k/uL RBC (3.80-5.40) m/uL Hgb (11.4-16.0) gm/dL Hct (34.0-46.0) % MCV (80.0-100.0) fL MCH (25.0-35.0) pg MCHC (31.0-37.0) g/dL RDW (11.5-15.5) % Plt Count (150-450) k/uL MPV Neutrophils % (Manual) % Band Neuts % (Manual) % Lymphocytes % (Manual) % Monocytes % (Manual) % Metamyelocytes % % Neutrophils # (Manual) (1.3-7.7) k/uL Lymphocytes # (Manual) (1.0-4.8) k/uL Monocytes # (Manual) (0-1.0) k/uL Metamyelocytes # (Man) (0) k/uL Nucleated RBCs (0-0) /100 WBC Manual Slide Review Anisocytosis (manual) Ovalocytes Crenated Cell PT (10.0-12.5) sec INR (<1.2) APTT (22.0-30.0) sec Sodium (137-145) mmol/L Potassium (3.5-5.1) mmol/L Chloride (98-107) mmol/L Carbon Dioxide (22-30) mmol/L Anion Gap mmol/L BUN (7-17) mg/dL Creatinine (0.52-1.04) mg/dL Est GFR (CKD-EPI)AfAm (>60 ml/min/1.73 sqM) Est GFR (CKD-EPI)NonAf (>60 ml/min/1.73 sqM) Glucose (74-99) mg/dL Plasma Lactic Acid John 2.9 H* (0.7-2.0) mmol/L Calcium (8.4-10.2) mg/dL Total Bilirubin (0.2-1.3) mg/dL AST (14-36) U/L ALT (4-34) U/L Alkaline Phosphatase (38-126) U/L Total Protein (6.3-8.2) g/dL Albumin (3.5-5.0) g/dL Amylase (30-110) U/L Lipase (23-300) U/L Disposition <Benedict Dasilva - Last Filed: 10/17/23 20:20> Time of Disposition: 22:52 <Thierno Valdovinos - Last Filed: 10/18/23 01:40> Clinical Impression: Abdominal pain, Small bowel obstruction, Ileus Disposition: ADMITTED IP TO THIS [facility] Condition: Stable
[2023-10-17 20:35] LABS: HCT 35.6 % (34.0-46.0); HGB 12.1 gm/dL (11.4-16.0); MCH 30.6 pg (25.0-35.0); MCHC 33.9 g/dL (31.0-37.0); MCV 90.4 fL (80.0-100.0); Mean Platelet Volume 8.1; Platelet Count 339 k/uL (150-450); RBC 3.94 m/uL (3.80-5.40); RDW 14.8 % (11.5-15.5)
[2023-10-17 20:48] LABS: ALT 17 U/L (4-34); AST 23 U/L (14-36); African American GFR (CKD) 79 (>60 ml/min/1.73 sqM); Albumin 2.8 g/dL (3.5-5.0); Alkaline Phosphatase 91 U/L (38-126); Amylase 55 U/L (30-110); Anion Gap 11 mmol/L; Blood Urea Nitrogen 18 mg/dL (7-17); Calcium 8.6 mg/dL (8.4-10.2); Carbon Dioxide 20 mmol/L (22-30); Chloride 104 mmol/L (98-107); Glucose 236 mg/dL (74-99); Lipase 48 U/L (23-300); Non-African American GFR(CKD) 68 (>60 ml/min/1.73 sqM); Potassium 3.8 mmol/L (3.5-5.1); Sodium 135 mmol/L (137-145); Total Bilirubin 1.3 mg/dL (0.2-1.3); Total Protein 4.9 g/dL (6.3-8.2)
[2023-10-17 20:54] LABS: Partial Thromboplastin Time 24.9 sec (22.0-30.0); Prothrombin Time 10.9 sec (10.0-12.5)
[2023-10-17 21:55] LABS: Anisocytosis (M) Present; Band Neutrophils % 45 %; Crenated RBC Present; Lymphocytes # (M) 0.18 k/uL (1.0-4.8); Metamyelocytes # (M) 0.06 k/uL (0); Metamyelocytes % 2 %; Monocytes # (M) 0.24 k/uL (0-1.0); Neutrophils % (M) 39 %; Nucleated Red Blood Cells 0 /100 WBC (0-0); Ovalocytes Present; Total Cells Counted 100
--- NOTE | 2023-10-17 22:19 | CT ---
EXAMINATION TYPE: CT abdomen pelvis w con DATE OF EXAM: 10/17/2023 COMPARISON: 09/06/2023 INDICATION: abdominal pain DLP: 660.7 mGycm, Automated exposure control for dose reduction was used. CONTRAST: 100 ml mL of Isovue 300. Study performed without Oral Contrast TECHNIQUE: Axial images were obtained from above the diaphragm to the pubic rami in the axial plane a t 5 mm thick sections. Reconstructed images are reviewed on the computer in the coronal plane. FINDINGS: Limited CT sections are obtained the lung bases. The lung bases are clear. Distal esophagus is dila radha with fluid. Small left pleural effusion is present. Minimal right pleural effusion is present. CT ABDOMEN: There is free air within the abdomen. This could be related to surgery. Report was called to the ER by by telephone. The case was discussed. Patient is 5 days out post surgery with adhes iolysis. Air volume appears greater than expected for this time period. Liver: Normal Spleen: Normal Pancreas: Normal Adrenal glands: The adrenal glands are normal. Gallbladder: Surgically absent Kidneys: No masses are evident. No hydronephrosis is present. No cysts are present. Delayed images were obtained through the kidneys, which remain unremarkable. Aorta: Vascular calcification is within the aorta. Inferior vena cava: Normal. CT PELVIS: There are prominent small bowel loops present. Fluid-filled loops of bowel are present. There is some thickening left lower quadrant small bowel loops. Scattered amount of free fluid is within the abdom en and pelvis. Free air is within the lower pelvis. This study is without oral contrast. Appendix: Visualized Urinary bladder: Normal. Genitourinary structures: Uterus and ovaries are not identified. Osseous structures: No suspicious lytic or sclerotic lesions. Postsurgical changes are lower lumbar s pine. IMPRESSION: 1. Pneumoperitoneum greater than expected for 5 days postop. Air is present within the pelvis centim eters in the diaphragm. Lower abdominal source is suspected. 2. Postop ileus versus small bowel obstruction.
[2023-10-17] MEDS ORDERED: PIPERACILLIN-TAZOBACTAM 3.375 GM in SODIUM CHLORIDE 0.9% 100 ML IVPB STA (23:00)
[2023-10-18] MEDS ORDERED: NALOXONE 0.4 MG/ML 1 ML VIAL IV PRN ×2 (00:15→00:17)
[2023-10-18] MEDS ORDERED: ONDANSETRON 4 MG/2 ML VIAL IVP PRN (00:17)
[2023-10-18] MEDS ORDERED: HYDROmorphone 0.5 MG/0.5 ML SYRINGE IVP PRN (00:17)
--- NOTE | 2023-10-18 00:58 | XR ---
EXAMINATION TYPE: XR chest 1V portable DATE OF EXAM: 10/18/2023 CLINICAL HISTORY: Confirm NG tube placement. TECHNIQUE: Single AP portable semiupright view of the chest is obtained. COMPARISON: Chest x-ray from September 07, 2023 FINDINGS: There is nasogastric tube terminating just above the diaphragm, recommend advancing approx imately 4 cm. Pneumoperitoneum redemonstrated below right diaphragm. Lungs remain grossly clear. Card iac silhouette size stable within normal limits. Osseous structures are intact. Cholecystectomy clips are redemonstrated. IMPRESSION: As above
--- NOTE | 2023-10-18 01:28 | XR ---
EXAMINATION TYPE: XR chest 1V portable DATE OF EXAM: 10/18/2023 CLINICAL HISTORY: Confirm NG tube placement. TECHNIQUE: Single AP portable semiupright view of the chest is obtained. COMPARISON: Chest x-ray from earlier today FINDINGS: Nasogastric tube successfully advanced below diaphragm. Other findings grossly stable. Jessie pect tiny left pleural effusion. Right-sided pneumoperitoneum redemonstrated. Lungs remain clear. IMPRESSION: As above.
[2023-10-18] MEDS ORDERED: PANTOPRAZOLE 40 MG/10 ML VIAL IV SCH (09:00)
[2023-10-18] MEDS: PIPERACILLIN-TAZOBACTAM 3.375 GM in SODIUM CHLORIDE 0.9% 100 ML IVPB SCH ×2 (10:19→17:44)
[2023-10-18] MEDS: PANTOPRAZOLE 40 MG/10 ML VIAL IV SCH ×2 (10:19→21:42)
--- NOTE | 2023-10-18 11:03 | XR ---
EXAMINATION TYPE: XR chest 1V portable DATE OF EXAM: 10/18/2023 COMPARISON: 10/18/2023 HISTORY: Repositioning NG tube TECHNIQUE: Chest is examined in frontal upright view with mobile apparatus largest portion of the abd omen is within the [id number]. FINDINGS: Heart size is normal. Pulmonary vasculature is normal. No suspicious infiltrates are eviden t. Nasogastric tube has been pulled back and has its tip within the distal esophagus. This should be adv anced 10 cm. Free air is under the diaphragm, present previously. Surgical skin nancy are in the midline IMPRESSION: 1. Nasogastric tube tip within the distal esophagus. This should be advanced 10 cm for better positi oning. 2. Pneumoperitoneum
--- NOTE | 2023-10-18 13:20 | P.GSHP ---
History of Present Illness H&P Date: 10/18/23 Has 3rd re-admission for bowel obstruction. Poor historian. Reports left lower quadrant abdominal pain, mild not severe. She is laying in stretcher with legs crossed and comfortable. NG tube present. She feels better since admission. Denies appetite. Lactic acid elevated. CT reviewed. Recommend IV fluid hydration. No acute surgical intervention at this time. Past Medical History Past Medical History: Chest Pain / Angina, Dementia, GERD/Reflux, Hyperlipide timothy, Hypertension, Osteoarthritis (OA), Skin Disorder, Thyroid Disorder Additional Past Medical History / Comment(s): Hx. pancreatitis with pancreatic cysts, psoriasis Lt ankle, angina - none recent, vitamin D deficiency, degenerative disc disease of the cervical & lumbar spine, diverticulitis. bronchitis, uterine fibroids, falls,hiatal hernia, bowel obstructions, UTI, chris lucinations, falls. History of Any Multi-Drug Resistant Organisms: None Reported, MRSA, Other MDRO Date of last positivie culture/infection: 2013 in [place] [facility] MDRO Source:: spider bite on lt. leg Past Surgical History: Adenoidectomy, Back Surgery, Bowel Resection, Cholecystectomy, Hernia Repair, Hysterectomy, Orthopedic Surgery, Tonsillectomy Additional Past Surgical History / Comment(s): Anterior cervical discectomy with fusion(total 3 sx, has wire in neck) , lumbar fusion 3-screws in back, Rt. hip surgery(not a hip replacement), Left 1st rib removal r/t thoracic outlet syndrome, Hiatal hernia surg., Bilateral cataract surgery with lens implant, Lt elbow tendon release, Sx on gums d/t infection, dental implant, sigmoid resection Past Anesthesia/Blood Transfusion Reactions: No Reported Reaction Additional Past Anesthesia/Blood Transfusion Reaction / Comment(s): blood transfusion in 1969-no reaction Past Psychological History: Depression Additional Psychological History / Comment(s): Lives in apt. alone, friends assist her w/ meals,medications. Dementia is worsening and is awaiting Assisted Living Care. 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 Smoking Status: Never smoker Past Alcohol Use History: None Reported Past Drug Use History: None Reported - Past Family History Father History Unknown: Yes Family Medical History: Coronary Artery Disease (CAD) Additional Family Medical History / Comment(s): aortic aneurysm at 72 Mother Family Medical History: CVA/TIA Brother(s) Family Medical History: No Reported History Sister(s) Family Medical History: Vascular Disorder Son(s) Family Medical History: No Reported History Daughter(s) Family Medical History: Unable to Obtain Medications and Allergies Home Medications Medication Instructions Recorded Confirmed Type amLODIPine [Norvasc] 2.5 mg PO DAILY 05/17/21 10/18/23 History Aspirin EC [Ecotrin Low Dose] 81 mg PO DAILY 03/13/23 10/18/23 History Donepezil [Aricept] 5 mg PO DAILY 03/13/23 10/18/23 History Levothyroxine Sodium [Synthroid] 100 mcg PO DAILY 03/13/23 10/18/23 History Oxybutynin Chloride [oxyBUTYnin 10 mg PO DAILY 03/13/23 10/18/23 History chloride ER] Sertraline [Zoloft] 50 mg PO DAILY 03/13/23 10/18/23 History Pantoprazole Sodium [Protonix] 40 mg PO DAILY 07/16/23 10/18/23 History Rosuvastatin Calcium 5 mg PO TUTH 07/16/23 10/18/23 History risperiDONE [RisperDAL] 0.25 mg PO BID 30 Days #60 tab 07/18/23 10/18/23 Rx Docusate [Colace] 100 mg PO BID #30 capsule 10/16/23 10/18/23 Rx HYDROcodone/APAP 5-325MG [[place] 1 tab PO Q6HR PRN 3 Days #12 tab 10/16/23 10/18/23 Rx 5-325] Ibuprofen [Motrin] 600 mg PO Q8HR PRN #30 tab 10/16/23 10/18/23 Rx Allergies Allergy/AdvReac Type Severity Reaction Status Date / Time clindamycin Allergy Rash/Hives Verified 10/08/23 09:32 atorvastatin calcium AdvReac LEG CRAMPS Verified 10/08/23 09:32 [From Lipitor] morphine AdvReac Nausea & Verified 10/08/23 09:32 Vomiting Surgical - Exam Vital Signs Temp Pulse Resp BP Pulse Ox 97.0 F L 111 H 20 122/58 95 10/17/23 19:43 10/17/23 19:43 10/17/23 19:43 10/17/23 19:43 10/17/23 19:43 Results - Labs 10/17/23 20:15 10/17/23 20:15 Abnormal Lab Results - Last 24 Hours (Table) 10/17/23 10/17/23 10/18/23 Range/Units 20:15 20:15 00:00 WBC 3.0 L (3.8-10.6) k/uL Lymphocytes # (Manual) 0.18 L (1.0-4.8) k/uL Metamyelocytes # (Man) 0.06 H (0) k/uL Sodium 135 L (137-145) mmol/L Carbon Dioxide 20 L (22-30) mmol/L BUN 18 H (7-17) mg/dL Glucose 236 H (74-99) mg/dL Plasma Lactic Acid John 2.9 H* (0.7-2.0) mmol/L Total Protein 4.9 L (6.3-8.2) g/dL Albumin 2.8 L (3.5-5.0) g/dL 10/18/23 10/18/23 10/18/23 Range/Units 02:41 05:50 09:19 WBC (3.8-10.6) k/uL Lymphocytes # (Manual) (1.0-4.8) k/uL Metamyelocytes # (Man) (0) k/uL Sodium (137-145) mmol/L Carbon Dioxide (22-30) mmol/L BUN (7-17) mg/dL Glucose (74-99) mg/dL Plasma Lactic Acid John 3.7 H* 3.3 H* 4.3 H* (0.7-2.0) mmol/L Total Protein (6.3-8.2) g/dL Albumin (3.5-5.0) g/dL 10/18/23 Range/Units 12:33 WBC (3.8-10.6) k/uL Lymphocytes # (Manual) (1.0-4.8) k/uL Metamyelocytes # (Man) (0) k/uL Sodium (137-145) mmol/L Carbon Dioxide (22-30) mmol/L BUN (7-17) mg/dL Glucose (74-99) mg/dL Plasma Lactic Acid John 3.0 H* (0.7-2.0) mmol/L Total Protein (6.3-8.2) g/dL Albumin (3.5-5.0) g/dL Diabetes panel 10/17/23 Range/Units 20:15 Sodium 135 L (137-145) mmol/L Potassium 3.8 (3.5-5.1) mmol/L Chloride 104 (98-107) mmol/L Carbon Dioxide 20 L (22-30) mmol/L BUN 18 H (7-17) mg/dL Creatinine 0.82 (0.52-1.04) mg/dL Glucose 236 H (74-99) mg/dL Calcium 8.6 (8.4-10.2) mg/dL AST 23 (14-36) U/L ALT 17 (4-34) U/L Alkaline Phosphatase 91 (38-126) U/L Total Protein 4.9 L (6.3-8.2) g/dL Albumin 2.8 L (3.5-5.0) g/dL Calcium panel 10/17/23 Range/Units 20:15 Calcium 8.6 (8.4-10.2) mg/dL Albumin 2.8 L (3.5-5.0) g/dL Pituitary panel 10/17/23 Range/Units 20:15 Sodium 135 L (137-145) mmol/L Potassium 3.8 (3.5-5.1) mmol/L Chloride 104 (98-107) mmol/L Carbon Dioxide 20 L (22-30) mmol/L BUN 18 H (7-17) mg/dL Creatinine 0.82 (0.52-1.04) mg/dL Glucose 236 H (74-99) mg/dL Calcium 8.6 (8.4-10.2) mg/dL Adrenal panel 10/17/23 Range/Units 20:15 Sodium 135 L (137-145) mmol/L Potassium 3.8 (3.5-5.1) mmol/L Chloride 104 (98-107) mmol/L Carbon Dioxide 20 L (22-30) mmol/L BUN 18 H (7-17) mg/dL Creatinine 0.82 (0.52-1.04) mg/dL Glucose 236 H (74-99) mg/dL Calcium 8.6 (8.4-10.2) mg/dL Total Bilirubin 1.3 (0.2-1.3) mg/dL AST 23 (14-36) U/L ALT 17 (4-34) U/L Alkaline Phosphatase 91 (38-126) U/L Total Protein 4.9 L (6.3-8.2) g/dL Albumin 2.8 L (3.5-5.0) g/dL
--- NOTE | 2023-10-18 14:31 | P.CONS ---
History of Present Illness - Reason for Consult Consult date: 10/18/23 Medical management - Chief Complaint Post surgery abdominal pain - History of Present Illness * 78-year-old female past medical history significant for small bowel obstruction with multiple surgeries, recent diagnostic laparoscopy with lysis of addition on 10/12/2023, gastroesophageal reflux disease, hypothyroidism, hyperlipidemia, hypertension, degenerative disc disease was discharged from the hospital post procedure on 10/16/23. Patient presents back to the emergency with complaints of worsening abdominal pain. Patient said her symptoms worsened after she was discharged from the hospital. Patient states ever since being home she had decreased oral intake and complained of diffuse abdominal discomfort. Patient was approximately home for one day * Workup initiated in ER included CBC which were WBC of 3 hemoglobin 12 platelet count of 339 INR of 1 * Serum chemistry obtained sodium 135 potassium 3.8, and Axert 20 B UN 18 creatinine 0.8-9 glucose 236 lactate of 3.3 albumin of 2.9 lipase of 48 MR is a 55 * Patient had a CT abdomen and pelvis done in ED which showed free air within the abdomen that could be related to surgery report was given to ED team. Patient is 5 days out post surgery with lysis of adhesions. Postop ileus versus small bowel obstruction suspected based on CT findings * Patient was resuscitated with IV fluid, started on IV antibiotic Zosyn and blood cultures collected and admitted under general surgery service * Internal medicine team consulted for comanagement. REVIEW OF SYSTEMS: Nausea, abdominal pain decreased appetite CONSTITUTIONAL: No fever, no malaise, no fatigue. HEENT: No recent visual problems or hearing problems. Denied any sore throat. CARDIOVASCULAR: No chest pain, orthopnea, PND, no palpitations, no syncope. PULMONARY: No shortness of breath, no cough, no hemoptysis. GASTROINTESTINAL: Nausea, abdominal pain decreased appetite NEUROLOGICAL: No headaches, no weakness, no numbness. HEMATOLOGICAL: Denies any bleeding or petechiae. GENITOURINARY: Denies any burning micturition, frequency, or urgency. MUSCULOSKELETAL/RHEUMATOLOGICAL: Denies any joint pain, swelling, or any muscle pain. ENDOCRINE: Denies any polyuria or polydipsia. PHYSICAL EXAMINATION: GENERAL: The patient is alert and oriented x3, Well developed, well nourished. , Nasogastric tube in place HEENT: Pupils are round and equally reacting to light. EOMI Normocephalic, atraumatic. CARDIOVASCULAR: S1 and S2 present. No murmurs, rubs, or gallops. PULMONARY: Chest is clear to auscultation, no wheezing or crackles. ABDOMEN: Abdomen distended, nasogastric tube in place, nancy intact MUSCULOSKELETAL: No joint swelling or deformity. EXTREMITIES: No cyanosis, clubbing, or pedal edema. NEUROLOGICAL: Gross neurological examination did not reveal any focal deficits. SKIN: No rashes. Past Medical History Past Medical History: Chest Pain / Angina, Dementia, GERD/Reflux, Hyperlipide timtohy, Hypertension, Osteoarthritis (OA), Skin Disorder, Thyroid Disorder Additional Past Medical History / Comment(s): Hx. pancreatitis with pancreatic cysts, psoriasis Lt ankle, angina - none recent, vitamin D deficiency, degenerative disc disease of the cervical & lumbar spine, diverticulitis. bronchitis, uterine fibroids, falls,hiatal hernia, bowel obstructions, UTI, chris lucinations, falls. History of Any Multi-Drug Resistant Organisms: None Reported, MRSA, Other MDRO Year Discovered:: 2013 in [facility] MDRO Source:: spider bite on lt. leg Past Surgical History: Adenoidectomy, Back Surgery, Bowel Resection, Cholecystectomy, Hernia Repair, Hysterectomy, Orthopedic Surgery, Tonsillectomy Additional Past Surgical History / Comment(s): Anterior cervical discectomy with fusion(total 3 sx, has wire in neck) , lumbar fusion 3-screws in back, Rt. 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 alone, friends assist her w/ meals,medications. Dementia is worsening and is awaiting Assisted Living Care. 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 Smoking Status: Never smoker Past Alcohol Use History: None Reported Past Drug Use History: None Reported - Past Family History Father History Unknown: Yes Family Medical History: Coronary Artery Disease (CAD) Additional Family Medical History / Comment(s): aortic aneurysm at 72 Mother Family Medical History: CVA/TIA Brother(s) Family Medical History: No Reported History Sister(s) Family Medical History: Vascular Disorder Son(s) Family Medical History: No Reported History Daughter(s) Family Medical History: Unable to Obtain Medications and Allergies Home Medications Medication Instructions Recorded Confirmed Type amLODIPine [Norvasc] 2.5 mg PO DAILY 05/17/21 10/18/23 History Aspirin EC [Ecotrin Low Dose] 81 mg PO DAILY 03/13/23 10/18/23 History Donepezil [Aricept] 5 mg PO DAILY 03/13/23 10/18/23 History Levothyroxine Sodium [Synthroid] 100 mcg PO DAILY 03/13/23 10/18/23 History Oxybutynin Chloride [oxyBUTYnin 10 mg PO DAILY 03/13/23 10/18/23 History chloride ER] Sertraline [Zoloft] 50 mg PO DAILY 03/13/23 10/18/23 History Pantoprazole Sodium [Protonix] 40 mg PO DAILY 07/16/23 10/18/23 History Rosuvastatin Calcium 5 mg PO TUTH 07/16/23 10/18/23 History risperiDONE [RisperDAL] 0.25 mg PO BID 30 Days #60 tab 07/18/23 10/18/23 Rx Docusate [Colace] 100 mg PO BID #30 capsule 10/16/23 10/18/23 Rx HYDROcodone/APAP 5-325MG [Vance 1 tab PO Q6HR PRN 3 Days #12 tab 10/16/23 10/18/23 Rx 5-325] Ibuprofen [Motrin] 600 mg PO Q8HR PRN #30 tab 10/16/23 10/18/23 Rx Allergies Allergy/AdvReac Type Severity Reaction Status Date / Time clindamycin Allergy Rash/Hives Verified 10/08/23 09:32 atorvastatin calcium AdvReac LEG CRAMPS Verified 10/08/23 09:32 [From Lipitor] morphine AdvReac Nausea & Verified 10/08/23 09:32 Vomiting Physical Exam Vitals: Vital Signs Temp Pulse Resp BP Pulse Ox 10/18/23 06:25 97.6 F 96 18 107/57 96 10/18/23 05:00 92 18 105/48 97 10/18/23 03:12 97.4 F L 83 16 95/48 97 10/18/23 01:00 100 20 106/86 95 10/18/23 00:31 101 H 18 91/51 97 10/18/23 00:09 105 H 94/53 10/18/23 00:04 97.3 F L 107 H 18 85/54 97 10/17/23 22:41 97.0 F L 10/17/23 22:12 107 H 24 104/53 95 10/17/23 19:43 97.0 F L 111 H 20 122/58 95 Intake and Output 10/17/23 10/18/23 10/18/23 22:59 06:59 14:59 Other: Weight 63.503 kg Results CBC & Chem 7: 10/17/23 20:15 10/17/23 20:15 Labs: Abnormal Lab Results - Last 24 Hours (Table) 10/17/23 10/17/23 10/18/23 Range/Units 20:15 20:15 00:00 WBC 3.0 L (3.8-10.6) k/uL Lymphocytes # (Manual) 0.18 L (1.0-4.8) k/uL Metamyelocytes # (Man) 0.06 H (0) k/uL Sodium 135 L (137-145) mmol/L Carbon Dioxide 20 L (22-30) mmol/L BUN 18 H (7-17) mg/dL Glucose 236 H (74-99) mg/dL Plasma Lactic Acid John 2.9 H* (0.7-2.0) mmol/L Total Protein 4.9 L (6.3-8.2) g/dL Albumin 2.8 L (3.5-5.0) g/dL 10/18/23 10/18/23 Range/Units 02:41 05:50 WBC (3.8-10.6) k/uL Lymphocytes # (Manual) (1.0-4.8) k/uL Metamyelocytes # (Man) (0) k/uL Sodium (137-145) mmol/L Carbon Dioxide (22-30) mmol/L BUN (7-17) mg/dL Glucose (74-99) mg/dL Plasma Lactic Acid John 3.7 H* 3.3 H* (0.7-2.0) mmol/L Total Protein (6.3-8.2) g/dL Albumin (3.5-5.0) g/dL Assessment and Plan Assessment: Assessment and plan * Postprocedure abdominal pain/ileus status post laparotomy and lysis of lesions postoperative day 6 * Sepsis likely intra-abdominal source * Metabolic acidosis secondary to sepsis * Acute hyponatremia secondary to hypovolemia * History of hypertension * History of dyslipidemia * History of hypothyroid * In regards to post procedure ileus, defer management to general surgery team. Continue with serial abdominal exams serial lactate levels continue with appropriate fluid resuscitation to lactate normal lites * In regards to sepsis, blood cultures collected continue patient on IV Zosyn, recommend infectious disease consultation * In regards to acute hyponatremia continue fluid resuscitation follow-up on basic metabolic panel * In regards to hypertension, blood pressure low normal hold home antihypertensive medications * In regards to dyslipidemia continue to hold statin, patient nothing by mouth hold Synthyroid * CODE STATUS is full code
[2023-10-18] MEDS: SODIUM CHLORIDE 0.9% 1,000 ML IV SCH ×2 (17:12→21:45)
[2023-10-19] MEDS: PIPERACILLIN-TAZOBACTAM 3.375 GM in SODIUM CHLORIDE 0.9% 100 ML IVPB SCH ×3 (00:08→17:38)
[2023-10-19 06:23] LABS: HCT 31.5 % (34.0-46.0); HGB 10.2 gm/dL (11.4-16.0); Hypochromasia Slight; MCHC 32.6 g/dL (31.0-37.0); Mean Platelet Volume 8.2; Platelet Count 289 k/uL (150-450); RBC 3.42 m/uL (3.80-5.40); RDW 14.9 % (11.5-15.5); WBC 10.6 k/uL (3.8-10.6)
[2023-10-19 06:38] LABS: African American GFR (CKD) 34 (>60 ml/min/1.73 sqM); Anion Gap 12 mmol/L; Blood Urea Nitrogen 45 mg/dL (7-17); Calcium 7.6 mg/dL (8.4-10.2); Carbon Dioxide 18 mmol/L (22-30); Chloride 112 mmol/L (98-107); Glucose 120 mg/dL (74-99); Magnesium 1.6 mg/dL (1.6-2.3); Non-African American GFR(CKD) 30 (>60 ml/min/1.73 sqM); Phosphorus 4.8 mg/dL (2.5-4.5); Potassium 3.8 mmol/L (3.5-5.1); Sodium 142 mmol/L (137-145)
[2023-10-19 06:50] LABS: Band Neutrophils % 9 %; Eosinophils # (M) 0.11 k/uL (0-0.7); Lymphocytes # (M) 1.91 k/uL (1.0-4.8); Monocytes # (M) 0.32 k/uL (0-1.0); Neutrophils % (M) 69 %; Nucleated Red Blood Cells 0 /100 WBC (0-0); Total Cells Counted 100
[2023-10-19 06:51] LABS: Crenated RBC Present
[2023-10-19] MEDS: SODIUM CHLORIDE 0.9% 1,000 ML IV SCH ×2 (08:53→13:45)
[2023-10-19 09:03] LABS: Glucose,Whole Blood 127 mg/dL (70-110)
--- NOTE | 2023-10-19 10:49 | US ---
EXAMINATION TYPE: US kidneys/renal and bladder DATE OF EXAM: 10/19/2023 COMPARISON: NONE CLINICAL INDICATION: Female, 78 years old with history of Renal failure; ICU pt with recent SBO surge ry, renal failure, pt poor historian EXAM MEASUREMENTS: Right Kidney: 8.5 x 4.2 x 4.1 cm Left Kidney: 8.1 x 3.3 x 4.2 cm Patient confused and kept trying to push US tech away from her Right Kidney: small in size, bowel loop slightly obscures, mild adjacent free fluid noted Left Kidney: small in size Bladder: wnl There is no evidence for hydronephrosis at this point in time. No nephrolithiasis is seen. No enio s are identified. The urinary bladder is anechoic. IMPRESSION: No evidence for acute abdominal process. No obstructive uropathy.
[2023-10-19] MEDS: PANTOPRAZOLE 40 MG/10 ML VIAL IV SCH ×2 (12:25→20:26)
--- NOTE | 2023-10-19 12:44 | P.PN ---
Subjective Progress Note Date: 10/19/23 CHIEF COMPLAINT: Possible ileus HISTORY OF PRESENT ILLNESS: Patient is an overflow in the ICU. She does have some lower abdominal pain. Denies any nausea vomiting. She pulled the NG tube out multiple times. Patient has had no bowel movements. Denies any flatus. WBC 10 Hgb 10 creatinine up at 1.6 for lactic acid 3 down to 2.5 PHYSICAL EXAM: VITAL SIGNS: Reviewed. GENERAL: Well-developed in no acute distress. ABDOMEN: Soft. Mildly distended lower abdomen and tender with palpation. Incision site clean dry and intact NEUROLOGIC: Mildly confused ASSESSMENT: 1. Postoperative ileus versus small bowel obstruction 2. Status post diagnostic laparoscopy and lysis of extensive adhesions on 0 10/12/2023 PLAN: -Keep patient nothing by mouth except for ice chips -Okay to keep NG tube out -Increase activity level -Continue to monitor Physician Library Services Assistant note has been reviewed by physician. Signing provider agrees with the documented findings, assessment, and plan of care. Objective - Vital Signs Vital signs: Vital Signs Temp 97.2 F L 10/19/23 08:09 Pulse 78 10/19/23 08:09 Resp 16 10/19/23 08:09 BP 127/61 10/19/23 08:09 Pulse Ox 98 10/19/23 08:09 FiO2 Intake & Output 10/18/23 10/19/23 10/19/23 18:59 06:59 18:59 Intake Total 600 Balance 600 Weight 63.503 kg Intake: Intake, IV Titration 600 Amount Piperacillin-Tazobactam 3 100 .375 gm In Sodium Chloride 0.9% 100 ml @ 25 mls/hr IVPB Q8H YULY Rx#: [id number] Sodium Chloride 0.9% 1, 500 000 ml @ 100 mls/hr IV . Q10H STA Rx#:[id number] Other: Voiding Method Diaper - Labs CBC & Chem 7: 10/19/23 06:01 10/19/23 06:01 Labs: Abnormal Lab Results - Last 24 Hours (Table) 10/18/23 10/18/23 10/18/23 Range/Units 12:33 15:31 18:37 RBC (3.80-5.40) m/uL Hgb (11.4-16.0) gm/dL Hct (34.0-46.0) % Neutrophils # (Manual) (1.3-7.7) k/uL Chloride (98-107) mmol/L Carbon Dioxide (22-30) mmol/L BUN (7-17) mg/dL Creatinine (0.52-1.04) mg/dL Glucose (74-99) mg/dL POC Glucose (mg/dL) (70-110) mg/dL Plasma Lactic Acid John 3.0 H* 4.2 H* 3.0 H* (0.7-2.0) mmol/L Calcium (8.4-10.2) mg/dL Phosphorus (2.5-4.5) mg/dL 10/18/23 10/19/23 10/19/23 Range/Units 21:40 00:31 06:01 RBC 3.42 L (3.80-5.40) m/uL Hgb 10.2 L (11.4-16.0) gm/dL Hct 31.5 L (34.0-46.0) % Neutrophils # (Manual) 8.20 H (1.3-7.7) k/uL Chloride (98-107) mmol/L Carbon Dioxide (22-30) mmol/L BUN (7-17) mg/dL Creatinine (0.52-1.04) mg/dL Glucose (74-99) mg/dL POC Glucose (mg/dL) (70-110) mg/dL Plasma Lactic Acid John 2.7 H* 3.0 H* (0.7-2.0) mmol/L Calcium (8.4-10.2) mg/dL Phosphorus (2.5-4.5) mg/dL 10/19/23 10/19/23 10/19/23 Range/Units 06:01 06:01 09:00 RBC (3.80-5.40) m/uL Hgb (11.4-16.0) gm/dL Hct (34.0-46.0) % Neutrophils # (Manual) (1.3-7.7) k/uL Chloride 112 H (98-107) mmol/L Carbon Dioxide 18 L (22-30) mmol/L BUN 45 H (7-17) mg/dL Creatinine 1.64 H (0.52-1.04) mg/dL Glucose 120 H (74-99) mg/dL POC Glucose (mg/dL) 127 H (70-110) mg/dL Plasma Lactic Acid John 2.5 H* (0.7-2.0) mmol/L Calcium 7.6 L (8.4-10.2) mg/dL Phosphorus 4.8 H (2.5-4.5) mg/dL 10/19/23 Range/Units 10:04 RBC (3.80-5.40) m/uL Hgb (11.4-16.0) gm/dL Hct (34.0-46.0) % Neutrophils # (Manual) (1.3-7.7) k/uL Chloride (98-107) mmol/L Carbon Dioxide (22-30) mmol/L BUN (7-17) mg/dL Creatinine (0.52-1.04) mg/dL Glucose (74-99) mg/dL POC Glucose (mg/dL) (70-110) mg/dL Plasma Lactic Acid John 2.2 H* (0.7-2.0) mmol/L Calcium (8.4-10.2) mg/dL Phosphorus (2.5-4.5) mg/dL
--- NOTE | 2023-10-19 14:13 | P.PN ---
Subjective Progress Note Date: 10/19/23 * 78-year-old female past medical history significant for small bowel obstruction with multiple surgeries, recent diagnostic laparoscopy with lysis of addition on 10/12/2023, gastroesophageal reflux disease, hypothyroidism, hyperlipidemia, hypertension, degenerative disc disease was discharged from the hospital post procedure on 10/16/23. Patient presents back to the emergency with complaints of worsening abdominal pain. Patient said her symptoms worsened after she was discharged from the hospital. Patient states ever since being home she had decreased oral intake and complained of diffuse abdominal discomfort. Patient was approximately home for one day * Workup initiated in ER included CBC which were WBC of 3 hemoglobin 12 platelet count of 339 INR of 1 * Serum chemistry obtained sodium 135 potassium 3.8, and Axert 20 B UN 18 creatinine 0.8-9 glucose 236 lactate of 3.3 albumin of 2.9 lipase of 48 MR is a 55 * Patient had a CT abdomen and pelvis done in ED which showed free air within the abdomen that could be related to surgery report was given to ED team. Patient is 5 days out post surgery with lysis of adhesions. Postop ileus versus small bowel obstruction suspected based on CT findings * Patient was resuscitated with IV fluid, started on IV antibiotic Zosyn and blood cultures collected and admitted under general surgery service * Internal medicine team consulted for comanagement. * 10/19/2023: Patient seen and evaluated bedside, patient had NG tube in place which patient removed herself. Abdominal distention has improved patient states nausea and abdominal pain has improved. Patient noted to have elevated creatinine, renal ultrasound ordered REVIEW OF SYSTEMS: Nausea, abdominal pain improved ,decreased appetite CONSTITUTIONAL: No fever, no malaise, no fatigue. HEENT: No recent visual problems or hearing problems. Denied any sore throat. CARDIOVASCULAR: No chest pain, orthopnea, PND, no palpitations, no syncope. PULMONARY: No shortness of breath, no cough, no hemoptysis. GASTROINTESTINAL: Nausea, abdominal pain improved , decreased appetite NEUROLOGICAL: No headaches, no weakness, no numbness. HEMATOLOGICAL: Denies any bleeding or petechiae. GENITOURINARY: Denies any burning micturition, frequency, or urgency. MUSCULOSKELETAL/RHEUMATOLOGICAL: Denies any joint pain, swelling, or any muscle pain. ENDOCRINE: Denies any polyuria or polydipsia. PHYSICAL EXAMINATION: GENERAL: The patient is alert and oriented x3, ill appearance, oral mucosa dry HEENT: Pupils are round and equally reacting to light. EOMI Normocephalic, atraumatic. CARDIOVASCULAR: S1 and S2 present. No murmurs, rubs, or gallops. PULMONARY: Chest is clear to auscultation, no wheezing or crackles. ABDOMEN: Abdomen soft, nasogastric tube removed, nancy intact, hypoactive bowel sounds MUSCULOSKELETAL: No joint swelling or deformity. EXTREMITIES: No cyanosis, clubbing, or pedal edema. NEUROLOGICAL: Gross neurological examination did not reveal any focal deficits. SKIN: No rashes. Objective - Vital Signs Vital signs: Vital Signs Temp 97.2 F L 10/19/23 08:09 Pulse 78 10/19/23 08:09 Resp 16 10/19/23 08:09 BP 127/61 10/19/23 08:09 Pulse Ox 98 10/19/23 08:09 FiO2 Intake & Output 10/18/23 10/19/23 10/19/23 18:59 06:59 18:59 Intake Total 600 Balance 600 Weight 63.503 kg Intake: Intake, IV Titration 600 Amount Piperacillin-Tazobactam 3 100 .375 gm In Sodium Chloride 0.9% 100 ml @ 25 mls/hr IVPB Q8H [facility] Rx#: [id number] Sodium Chloride 0.9% 1, 500 000 ml @ 100 mls/hr IV . Q10H STA Rx#:[id number] Other: Voiding Method Diaper - Labs CBC & Chem 7: 10/19/23 06:01 10/19/23 06:01 Labs: Abnormal Lab Results - Last 24 Hours (Table) 10/18/23 10/18/23 10/18/23 Range/Units 15:31 18:37 21:40 RBC (3.80-5.40) m/uL Hgb (11.4-16.0) gm/dL Hct (34.0-46.0) % Neutrophils # (Manual) (1.3-7.7) k/uL Chloride (98-107) mmol/L Carbon Dioxide (22-30) mmol/L BUN (7-17) mg/dL Creatinine (0.52-1.04) mg/dL Glucose (74-99) mg/dL POC Glucose (mg/dL) (70-110) mg/dL Plasma Lactic Acid John 4.2 H* 3.0 H* 2.7 H* (0.7-2.0) mmol/L Calcium (8.4-10.2) mg/dL Phosphorus (2.5-4.5) mg/dL 10/19/23 10/19/23 10/19/23 Range/Units 00:31 06:01 06:01 RBC 3.42 L (3.80-5.40) m/uL Hgb 10.2 L (11.4-16.0) gm/dL Hct 31.5 L (34.0-46.0) % Neutrophils # (Manual) 8.20 H (1.3-7.7) k/uL Chloride 112 H (98-107) mmol/L Carbon Dioxide 18 L (22-30) mmol/L BUN 45 H (7-17) mg/dL Creatinine 1.64 H (0.52-1.04) mg/dL Glucose 120 H (74-99) mg/dL POC Glucose (mg/dL) (70-110) mg/dL Plasma Lactic Acid John 3.0 H* (0.7-2.0) mmol/L Calcium 7.6 L (8.4-10.2) mg/dL Phosphorus 4.8 H (2.5-4.5) mg/dL 10/19/23 10/19/23 10/19/23 Range/Units 06:01 09:00 10:04 RBC (3.80-5.40) m/uL Hgb (11.4-16.0) gm/dL Hct (34.0-46.0) % Neutrophils # (Manual) (1.3-7.7) k/uL Chloride (98-107) mmol/L Carbon Dioxide (22-30) mmol/L BUN (7-17) mg/dL Creatinine (0.52-1.04) mg/dL Glucose (74-99) mg/dL POC Glucose (mg/dL) 127 H (70-110) mg/dL Plasma Lactic Acid John 2.5 H* 2.2 H* (0.7-2.0) mmol/L Calcium (8.4-10.2) mg/dL Phosphorus (2.5-4.5) mg/dL Microbiology - Last 24 Hours (Table) 10/17/23 23:57 Blood Culture - Preliminary Blood 10/17/23 23:40 Blood Culture - Preliminary Blood Assessment and Plan Assessment: Assessment and plan * Postprocedure abdominal pain/ileus status post laparotomy and lysis of lesions postoperative day 7 * Sepsis likely intra-abdominal source * Acute renal failure secondary to prerenal etiology * Metabolic acidosis secondary to sepsis * Acute hyponatremia secondary to hypovolemia * History of hypertension * History of dyslipidemia * History of hypothyroid * In regards to post procedure ileus, defer management to general surgery team. Continue with serial abdominal exams serial lactate levels continue with appropriate fluid resuscitation to lactate normal * In regards to sepsis, blood cultures collected continue patient on IV Zosyn, recommend infectious disease consultation * In regards to acute hyponatremia continue fluid resuscitation follow-up on basic metabolic panel * In regards to hypertension, blood pressure low normal hold home antihypertensive medications * In regards to dyslipidemia continue to hold statin, patient nothing by mouth hold Synthyroid * CODE STATUS is full code
[2023-10-19] MEDS: MAGNESIUM SULFATE-D5W PMX 1 GM in DEXTROSE/WATER 1 100ML.BAG IVPB SCH ×2 (14:29→16:21)
[2023-10-19 14:49] VITALS: BMI 25.6
[2023-10-20] MEDS: SODIUM CHLORIDE 0.9% 1,000 ML IV SCH ×3 (02:49→08:56)
[2023-10-20] MEDS: PIPERACILLIN-TAZOBACTAM 3.375 GM in SODIUM CHLORIDE 0.9% 100 ML IVPB SCH ×3 (02:50→16:03)
[2023-10-20 04:50] LABS: African American GFR (CKD) 47 (>60 ml/min/1.73 sqM); Anion Gap 7 mmol/L; Blood Urea Nitrogen 40 mg/dL (7-17); Calcium 7.2 mg/dL (8.4-10.2); Carbon Dioxide 18 mmol/L (22-30); Chloride 117 mmol/L (98-107); Glucose 99 mg/dL (74-99); Non-African American GFR(CKD) 40 (>60 ml/min/1.73 sqM); Sodium 142 mmol/L (137-145)
[2023-10-20] MEDS ORDERED: Potassium Replacement Protocol 1 EACH MISC MISCELLANE PRN (05:22)
[2023-10-20 05:37] LABS: HCT 24.7 % (34.0-46.0); Hypochromasia Slight; MCHC 31.6 g/dL (31.0-37.0); MCV 91.7 fL (80.0-100.0); Mean Platelet Volume 8.8; Platelet Count 267 k/uL (150-450); RDW 15.1 % (11.5-15.5); WBC 9.5 k/uL (3.8-10.6)
[2023-10-20 05:39] LABS: HGB 7.8 gm/dL (11.4-16.0)
[2023-10-20] MEDS: POTASSIUM CHLORIDE 10 MEQ in WATER FOR INJECTION 1 100ML.BAG IVPB SCH ×6 (05:39→13:40)
[2023-10-20 08:30] LABS: HCT 26.1 % (34.0-46.0); HGB 8.5 gm/dL (11.4-16.0); Hypochromasia Moderate; MCH 30.5 pg (25.0-35.0); MCHC 32.7 g/dL (31.0-37.0); MCV 93.2 fL (80.0-100.0); Mean Platelet Volume 8.3; Platelet Count 258 k/uL (150-450); WBC 10.4 k/uL (3.8-10.6)
[2023-10-20] MEDS: PANTOPRAZOLE 40 MG/10 ML VIAL IV SCH ×2 (08:56→20:42)
--- NOTE | 2023-10-20 12:10 | P.PN ---
Subjective Progress Note Date: 10/20/23 * 78-year-old female past medical history significant for small bowel obstruction with multiple surgeries, recent diagnostic laparoscopy with lysis of addition on 10/12/2023, gastroesophageal reflux disease, hypothyroidism, hyperlipidemia, hypertension, degenerative disc disease was discharged from the hospital post procedure on 10/16/23. Patient presents back to the emergency with complaints of worsening abdominal pain. Patient said her symptoms worsened after she was discharged from the hospital. Patient states ever since being home she had decreased oral intake and complained of diffuse abdominal discomfort. Patient was approximately home for one day * Workup initiated in ER included CBC which were WBC of 3 hemoglobin 12 platelet count of 339 INR of 1 * Serum chemistry obtained sodium 135 potassium 3.8, and Axert 20 B UN 18 creatinine 0.8-9 glucose 236 lactate of 3.3 albumin of 2.9 lipase of 48 MR is a 55 * Patient had a CT abdomen and pelvis done in ED which showed free air within the abdomen that could be related to surgery report was given to ED team. Patient is 5 days out post surgery with lysis of adhesions. Postop ileus versus small bowel obstruction suspected based on CT findings * Patient was resuscitated with IV fluid, started on IV antibiotic Zosyn and blood cultures collected and admitted under general surgery service * Internal medicine team consulted for comanagement. * 10/19/2023: Patient seen and evaluated bedside, patient had NG tube in place which patient removed herself. Abdominal distention has improved patient states nausea and abdominal pain has improved. Patient noted to have elevated creatinine, renal ultrasound ordered * 10/20/2023: Patient seen and evaluated bedside, patient alert and oriented 3, abdominal distention has improved, nancy intact hemoglobin noted to be around 8, no gross bleeding noted. Continue with fluid resuscitation general surgery team following. Dye to bleed was placed on general surgery recommendations continue patient on IV antibiotic REVIEW OF SYSTEMS: Nausea, abdominal pain improved ,decreased appetite CONSTITUTIONAL: No fever, no malaise, no fatigue. HEENT: No recent visual problems or hearing problems. Denied any sore throat. CARDIOVASCULAR: No chest pain, orthopnea, PND, no palpitations, no syncope. PULMONARY: No shortness of breath, no cough, no hemoptysis. GASTROINTESTINAL: Nausea, abdominal pain improved , decreased appetite NEUROLOGICAL: No headaches, no weakness, no numbness. HEMATOLOGICAL: Denies any bleeding or petechiae. GENITOURINARY: Denies any burning micturition, frequency, or urgency. MUSCULOSKELETAL/RHEUMATOLOGICAL: Denies any joint pain, swelling, or any muscle pain. ENDOCRINE: Denies any polyuria or polydipsia. PHYSICAL EXAMINATION: GENERAL: The patient is alert and oriented x3, ill appearance, oral mucosa dry HEENT: Pupils are round and equally reacting to light. EOMI Normocephalic, atrau matic. CARDIOVASCULAR: S1 and S2 present. No murmurs, rubs, or gallops. PULMONARY: Chest is clear to auscultation, no wheezing or crackles. ABDOMEN: Abdomen soft, nasogastric tube removed, nancy intact, hypoactive bowel sounds MUSCULOSKELETAL: No joint swelling or deformity. EXTREMITIES: No cyanosis, clubbing, or pedal edema. NEUROLOGICAL: Gross neurological examination did not reveal any focal deficits. SKIN: No rashes. Objective - Vital Signs Vital signs: Vital Signs Temp 97.4 F L 10/20/23 08:00 Pulse 77 10/20/23 08:00 Resp 20 10/20/23 08:00 BP 131/60 10/20/23 08:00 Pulse Ox 96 10/20/23 08:00 FiO2 Intake & Output 10/19/23 10/20/23 10/20/23 18:59 06:59 18:59 Intake Total 1050 2100 1000 Output Total 350 600 600 Balance 700 1500 400 Weight 63.503 kg Intake: IV 1050 2100 1000 0.9 750 1800 600 Magnesium Sulfate-D5w Pmx 100 1 gm In Dextrose/Water 1 100ml.bag @ 100 mls/hr IVPB Q1H [facility] Rx#: [id number] Piperacillin-Tazobactam 3 200 200 100 .375 gm In Sodium Chloride 0.9% 100 ml @ 25 mls/hr IVPB Q8H [facility] Rx#: [id number] Potassium Chloride 10 meq 100 300 In Water For Injection 1 100ml.bag @ 100 mls/hr IVPB Q1HR [facility] Rx#: [id number] Output: Urine 350 600 600 Other: Voiding Method Bedside Commode Bedside Commode Diaper Diaper # Voids 1 1 - Labs CBC & Chem 7: 10/20/23 08:18 10/20/23 04:04 Labs: Abnormal Lab Results - Last 24 Hours (Table) 10/20/23 10/20/23 10/20/23 Range/Units 04:04 04:04 08:18 RBC 2.70 L 2.80 L (3.80-5.40) m/uL Hgb 7.8 L D 8.5 L (11.4-16.0) gm/dL Hct 24.7 L 26.1 L (34.0-46.0) % Potassium 3.0 L (3.5-5.1) mmol/L Chloride 117 H (98-107) mmol/L Carbon Dioxide 18 L (22-30) mmol/L BUN 40 H (7-17) mg/dL Creatinine 1.27 H (0.52-1.04) mg/dL Calcium 7.2 L (8.4-10.2) mg/dL Microbiology - Last 24 Hours (Table) 10/17/23 23:57 Blood Culture - Preliminary Blood 10/17/23 23:40 Blood Culture - Preliminary Blood Assessment and Plan Assessment: Assessment and plan * Postprocedure abdominal pain/ileus status post laparotomy and lysis of lesions postoperative day 8 * Sepsis likely intra-abdominal source * Acute renal failure secondary to prerenal etiology * Metabolic acidosis secondary to sepsis * Acute hyponatremia secondary to hypovolemia * History of hypertension * History of dyslipidemia * History of hypothyroid * In regards to post procedure ileus, defer management to general surgery team. Continue with serial abdominal exams serial lactate levels continue with appropriate fluid resuscitation to lactate normal * In regards to sepsis, blood cultures collected continue patient on IV Zosyn, recommend infectious disease consultation * In regards to acute hyponatremia continue fluid resuscitation follow-up on basic metabolic panel * In regards to hypertension, blood pressure low normal hold home antihypertensive medications * In regards to acute renal failure continue with IV hydration follow-up on renal function, renal ultrasound negative * In regards to dyslipidemia continue to hold statin, patient nothing by mouth hold Synthyroid * CODE STATUS is full code
--- NOTE | 2023-10-20 13:31 | P.PN ---
Subjective Progress Note Date: 10/20/23 CHIEF COMPLAINT: Possible ileus HISTORY OF PRESENT ILLNESS: Patient is an overflow in the ICU. Patient does have some diffuse abdominal pain mostly around the incision site. No nausea or vomiting reported. No bowel movement. She did go bed yesterday. Nursing staff has reported patient having flatus. Afebrile. WBC 10.4 Hgb 10.2 down to 7.8 with repeat hemoglobin of 8.5. Hemoglobin is likely dilutional. Sodium is 142 potassium 3.0 creatinine 1.27 PHYSICAL EXAM: VITAL SIGNS: Reviewed. GENERAL: Well-developed in no acute distress. ABDOMEN: Soft. Mildly distended lower abdomen and tenderness around incision site. Incision site clean dry and intact NEUROLOGIC: Mildly confused ASSESSMENT: 1. Postoperative ileus versus small bowel obstruction 2. Status post diagnostic laparoscopy and lysis of extensive adhesions on 10/12/2023 3. Hypokalemia PLAN: -start sips of clears -Increase activity level -Continue to monitor -Potassium being replaced Physician Information Coder note has been reviewed by physician. Signing provider agrees with the documented findings, assessment, and plan of care. Objective - Vital Signs Vital signs: Vital Signs Temp 97.4 F L 10/20/23 08:00 Pulse 77 10/20/23 08:00 Resp 20 10/20/23 08:00 BP 131/60 10/20/23 08:00 Pulse Ox 96 10/20/23 08:00 FiO2 Intake & Output 10/19/23 10/20/23 10/20/23 18:59 06:59 18:59 Intake Total 1050 2100 1000 Output Total 350 600 600 Balance 700 1500 400 Weight 63.503 kg Intake: IV 1050 2100 1000 0.9 750 1800 600 Magnesium Sulfate-D5w Pmx 100 1 gm In Dextrose/Water 1 100ml.bag @ 100 mls/hr IVPB Q1H [facility] Rx#: [id number] Piperacillin-Tazobactam 3 200 200 100 .375 gm In Sodium Chloride 0.9% 100 ml @ 25 mls/hr IVPB Q8H [facility] Rx#: [id number] Potassium Chloride 10 meq 100 300 In Water For Injection 1 100ml.bag @ 100 mls/hr IVPB Q1HR [facility] Rx#: [id number] Output: Urine 350 600 600 Other: Voiding Method Bedside Commode Bedside Commode Diaper Diaper # Voids 1 1 - Labs CBC & Chem 7: 10/20/23 08:18 10/20/23 04:04 Labs: Abnormal Lab Results - Last 24 Hours (Table) 10/20/23 10/20/23 10/20/23 Range/Units 04:04 04:04 08:18 RBC 2.70 L 2.80 L (3.80-5.40) m/uL Hgb 7.8 L D 8.5 L (11.4-16.0) gm/dL Hct 24.7 L 26.1 L (34.0-46.0) % Potassium 3.0 L (3.5-5.1) mmol/L Chloride 117 H (98-107) mmol/L Carbon Dioxide 18 L (22-30) mmol/L BUN 40 H (7-17) mg/dL Creatinine 1.27 H (0.52-1.04) mg/dL Calcium 7.2 L (8.4-10.2) mg/dL Microbiology - Last 24 Hours (Table) 10/17/23 23:57 Blood Culture - Preliminary Blood 10/17/23 23:40 Blood Culture - Preliminary Blood
[2023-10-20 19:53] LABS: Ionized Calcium 4.5 mg/dL (4.5-5.3)
[2023-10-20 19:57] LABS: Potassium 3.4 mmol/L (3.5-5.1)
[2023-10-21] MEDS: PIPERACILLIN-TAZOBACTAM 3.375 GM in SODIUM CHLORIDE 0.9% 100 ML IVPB SCH ×3 (00:30→16:34)
[2023-10-21] MEDS: POTASSIUM CHLORIDE ER 20 MEQ TAB.ER PO SCH ×2 (00:32→01:42)
[2023-10-21] MEDS: PANTOPRAZOLE 40 MG/10 ML VIAL IV SCH ×2 (10:20→20:05)
[2023-10-21] MEDS: SERTRALINE 50 MG TAB PO SCH (10:20)
[2023-10-21] MEDS: DOCUSATE 100 MG CAP PO SCH ×2 (10:20→20:06)
[2023-10-21 11:05] LABS: HCT 23.5 % (37.2-46.3); HGB 7.5 g/dL (12.0-15.0); MCH 28.6 pg (27.0-32.0); MCHC 31.9 g/dL (32.0-37.0); MCV 89.7 FL (80.0-97.0); Mean Platelet Volume 10.2 FL (9.5-12.2); NRBC Per 100 WBC 0 X 10*3/uL (0.00-0.01); Platelet Count 271 X 10*3/uL (140-440); RBC 2.62 X 10*6/uL (4.10-5.20); RDW 15.5 % (11.5-14.5); WBC 8.54 X 10*3/uL (4.50-10.00)
[2023-10-21] MEDS: OXYBUTYNIN 10 MG TAB.ER.24 PO SCH (11:13)
[2023-10-21] MEDS: amLODIPine 2.5 MG TAB PO SCH (11:13)
[2023-10-21] MEDS: risperiDONE 0.25 MG TAB PO SCH ×2 (11:13→20:06)
[2023-10-21] MEDS: DONEPEZIL 5 MG TAB PO SCH (11:13)
[2023-10-21 11:16] LABS: BUN/Creat Ratio 45.71 Ratio (12.00-20.00); Calcium 7.5 mg/dL (8.7-10.3); Carbon Dioxide 19.1 mmol/L (21.6-31.8); Chloride 112 mmol/L (96-109); Glucose 114 mg/dL (70-110); Sodium 140 mmol/L (135-145)
[2023-10-21] MEDS: LEVOTHYROXINE 100 MCG TAB PO SCH (12:45)
--- NOTE | 2023-10-21 12:51 | P.PN ---
Subjective Progress Note Date: 10/21/23 * 78-year-old female past medical history significant for small bowel obstruction with multiple surgeries, recent diagnostic laparoscopy with lysis of addition on 10/12/2023, gastroesophageal reflux disease, hypothyroidism, hyperlipidemia, hypertension, degenerative disc disease was discharged from the hospital post procedure on 10/16/23. Patient presents back to the emergency with complaints of worsening abdominal pain. Patient said her symptoms worsened after she was discharged from the hospital. Patient states ever since being home she had decreased oral intake and complained of diffuse abdominal discomfort. Patient was approximately home for one day * Workup initiated in ER included CBC which were WBC of 3 hemoglobin 12 platelet count of 339 INR of 1 * Serum chemistry obtained sodium 135 potassium 3.8, and Axert 20 B UN 18 creatinine 0.8-9 glucose 236 lactate of 3.3 albumin of 2.9 lipase of 48 MR is a 55 * Patient had a CT abdomen and pelvis done in ED which showed free air within the abdomen that could be related to surgery report was given to ED team. Patient is 5 days out post surgery with lysis of adhesions. Postop ileus versus small bowel obstruction suspected based on CT findings * Patient was resuscitated with IV fluid, started on IV antibiotic Zosyn and blood cultures collected and admitted under general surgery service * Internal medicine team consulted for comanagement. * 10/19/2023: Patient seen and evaluated bedside, patient had NG tube in place which patient removed herself. Abdominal distention has improved patient states nausea and abdominal pain has improved. Patient noted to have elevated creatinine, renal ultrasound ordered * 10/20/2023: Patient seen and evaluated bedside, patient alert and oriented 3, abdominal distention has improved, nancy intact hemoglobin noted to be around 8, no gross bleeding noted. Continue with fluid resuscitation general surgery team following. Dye to bleed was placed on general surgery recommendations continue patient on IV antibiotic * 10/21/2023: Patient seen and evaluated bedside, patient denies nausea, vomiting or abdominal pain, WBC count within normal limits, continue IV antibiotic. Calcium ionized levels within normal limits REVIEW OF SYSTEMS: Nausea improved, abdominal pain improved ,decreased appetite CONSTITUTIONAL: No fever, no malaise, no fatigue. HEENT: No recent visual problems or hearing problems. Denied any sore throat. CARDIOVASCULAR: No chest pain, orthopnea, PND, no palpitations, no syncope. PULMONARY: No shortness of breath, no cough, no hemoptysis. GASTROINTESTINAL: Nausea, abdominal pain improved , decreased appetite NEUROLOGICAL: No headaches, no weakness, no numbness. HEMATOLOGICAL: Denies any bleeding or petechiae. GENITOURINARY: Denies any burning micturition, frequency, or urgency. MUSCULOSKELETAL/RHEUMATOLOGICAL: Denies any joint pain, swelling, or any muscle pain. ENDOCRINE: Denies any polyuria or polydipsia. PHYSICAL EXAMINATION: GENERAL: The patient is alert and oriented x3, ill appearance, oral mucosa dry HEENT: Pupils are round and equally reacting to light. EOMI Normocephalic, atraumatic. CARDIOVASCULAR: S1 and S2 present. No murmurs, rubs, or gallops. PULMONARY: Chest is clear to auscultation, no wheezing or crackles. ABDOMEN: Abdomen soft, nasogastric tube removed, nancy intact, bowel sounds present MUSCULOSKELETAL: No joint swelling or deformity. EXTREMITIES: No cyanosis, clubbing, or pedal edema. NEUROLOGICAL: Gross neurological examination did not reveal any focal deficits. SKIN: No rashes. Objective - Vital Signs Vital signs: Vital Signs Temp 98.2 F 10/21/23 12:33 Pulse 71 10/21/23 12:33 Resp 17 10/21/23 12:33 BP 145/65 10/21/23 12:33 Pulse Ox 96 10/21/23 12:33 FiO2 Intake & Output 10/20/23 10/21/23 10/21/23 18:59 06:59 18:59 Intake Total 1550 Output Total 850 Balance 700 Intake: IV 1550 0.9 850 Piperacillin-Tazobactam 3 200 .375 gm In Sodium Chloride 0.9% 100 ml @ 25 mls/hr IVPB Q8H [facility] Rx#: [id number] Potassium Chloride 10 meq 500 In Water For Injection 1 100ml.bag @ 100 mls/hr IVPB Q1HR [facility] Rx#: [id number] Output: Urine 850 Other: Voiding Method Bedside Commode Bedside Commode Diaper Diaper # Voids 1 1 1 # Bowel Movements 0 - Labs CBC & Chem 7: 10/21/23 06:54 10/21/23 06:54 Labs: Abnormal Lab Results - Last 24 Hours (Table) 10/20/23 10/21/23 10/21/23 Range/Units 18:45 06:54 06:54 RBC 2.62 L (4.10-5.20) X 10*6/uL Hgb 7.5 L (12.0-15.0) g/dL Hct 23.5 L (37.2-46.3) % MCHC 31.9 L (32.0-37.0) g/dL RDW 15.5 H (11.5-14.5) % Potassium 3.4 L (3.5-5.1) mmol/L Chloride 112 H (96-109) mmol/L Carbon Dioxide 19.1 L (21.6-31.8) mmol/L BUN 32.0 H (9.0-27.0) mg/dL BUN/Creatinine Ratio 45.71 H (12.00-20.00) Ratio Glucose 114 H (70-110) mg/dL Calcium 7.5 L (8.7-10.3) mg/dL Microbiology - Last 24 Hours (Table) 10/17/23 23:57 Blood Culture - Preliminary Blood 10/17/23 23:40 Blood Culture - Preliminary Blood Assessment and Plan Assessment: Assessment and plan * Postprocedure abdominal pain/ileus status post laparotomy and lysis of lesions postoperative day 9 * Sepsis likely intra-abdominal source * Acute renal failure secondary to prerenal etiology * Metabolic acidosis secondary to sepsis * Acute hyponatremia secondary to hypovolemia * History of hypertension * History of dyslipidemia * History of hypothyroid * In regards to post procedure ileus, defer management to general surgery team. Continue with serial abdominal exams serial lactate levels continue with appropriate fluid resuscitation to lactate normal, on clear liquid diet * In regards to sepsis, blood cultures collected continue patient on IV Zosyn day 3 * In regards to acute hyponatremia continue fluid resuscitation follow-up on basic metabolic panel * In regards to hypertension, blood pressure low normal hold home antihypertensive medications * In regards to acute renal failure continue with IV hydration follow-up on renal function, renal ultrasound negative * In regards to dyslipidemia , continue statin, continue Synthyroid * CODE STATUS is full code
--- NOTE | 2023-10-21 13:05 | P.PN ---
Subjective Progress Note Date: 10/21/23 CHIEF COMPLAINT: Possible ileus HISTORY OF PRESENT ILLNESS: Patient reports feeling weak. She does report having flatus. She did have a few sips of her clear liquids. Denies any nausea or vomiting. Denies any bowel movement. She does report some lower abdominal pain. WBC 8.54 hgb 7.5 plt 271 Na 140 K 3.8 PHYSICAL EXAM: VITAL SIGNS: Reviewed. GENERAL: Well-developed in no acute distress. ABDOMEN: Soft. Nondistended. Mild tenderness with palpation left lower abdomen NEUROLOGIC: Mildly confused ASSESSMENT: 1. Postoperative ileus 2. Status post diagnostic laparoscopy and lysis of extensive adhesions on 10/12/2023 3. Hypokalemia PLAN: -Advance diet to full liquids -Increase activity level -Continue to work with PT OT. -Patient may need ECF placement Physician Inspector [employer] note has been reviewed by physician. Signing provider agrees with the documented findings, assessment, and plan of care. Objective - Vital Signs Vital signs: Vital Signs Temp 98.2 F 10/21/23 12:33 Pulse 71 10/21/23 12:33 Resp 17 10/21/23 12:33 BP 145/65 10/21/23 12:33 Pulse Ox 96 10/21/23 12:33 FiO2 Intake & Output 10/20/23 10/21/23 10/21/23 18:59 06:59 18:59 Intake Total 1550 Output Total 850 Balance 700 Intake: IV 1550 0.9 850 Piperacillin-Tazobactam 3 200 .375 gm In Sodium Chloride 0.9% 100 ml @ 25 mls/hr IVPB Q8H [facility] Rx#: [id number] Potassium Chloride 10 meq 500 In Water For Injection 1 100ml.bag @ 100 mls/hr IVPB Q1HR [facility] Rx#: [id number] Output: Urine 850 Other: Voiding Method Bedside Commode Bedside Commode Diaper Diaper # Voids 1 1 1 # Bowel Movements 0 - Labs CBC & Chem 7: 10/21/23 06:54 10/21/23 06:54 Labs: Abnormal Lab Results - Last 24 Hours (Table) 10/20/23 10/21/23 10/21/23 Range/Units 18:45 06:54 06:54 RBC 2.62 L (4.10-5.20) X 10*6/uL Hgb 7.5 L (12.0-15.0) g/dL Hct 23.5 L (37.2-46.3) % MCHC 31.9 L (32.0-37.0) g/dL RDW 15.5 H (11.5-14.5) % Potassium 3.4 L (3.5-5.1) mmol/L Chloride 112 H (96-109) mmol/L Carbon Dioxide 19.1 L (21.6-31.8) mmol/L BUN 32.0 H (9.0-27.0) mg/dL BUN/Creatinine Ratio 45.71 H (12.00-20.00) Ratio Glucose 114 H (70-110) mg/dL Calcium 7.5 L (8.7-10.3) mg/dL Microbiology - Last 24 Hours (Table) 10/17/23 23:57 Blood Culture - Preliminary Blood 10/17/23 23:40 Blood Culture - Preliminary Blood
[2023-10-21] MEDS: ACETAMINOPHEN TAB 325 MG TAB PO PRN (20:06)
[2023-10-22] MEDS: PIPERACILLIN-TAZOBACTAM 3.375 GM in SODIUM CHLORIDE 0.9% 100 ML IVPB SCH ×3 (00:07→16:19)
[2023-10-22] MEDS: LEVOTHYROXINE 100 MCG TAB PO SCH (06:06)
[2023-10-22] MEDS: risperiDONE 0.25 MG TAB PO SCH ×2 (08:18→23:08)
[2023-10-22] MEDS: PANTOPRAZOLE 40 MG/10 ML VIAL IV SCH (08:18)
[2023-10-22] MEDS: OXYBUTYNIN 10 MG TAB.ER.24 PO SCH (08:18)
[2023-10-22] MEDS: amLODIPine 2.5 MG TAB PO SCH (08:18)
[2023-10-22] MEDS: SERTRALINE 50 MG TAB PO SCH (08:18)
[2023-10-22] MEDS: DOCUSATE 100 MG CAP PO SCH ×2 (08:18→23:08)
[2023-10-22] MEDS: DONEPEZIL 5 MG TAB PO SCH (08:19)
[2023-10-22 08:55] LABS: HCT 27.2 % (37.2-46.3); HGB 8.6 g/dL (12.0-15.0); MCH 28.7 pg (27.0-32.0); MCHC 31.6 g/dL (32.0-37.0); MCV 90.7 FL (80.0-97.0); Mean Platelet Volume 10.3 FL (9.5-12.2); NRBC Per 100 WBC 0 X 10*3/uL (0.00-0.01); Platelet Count 297 X 10*3/uL (140-440); RDW 15.7 % (11.5-14.5); WBC 8.22 X 10*3/uL (4.50-10.00)
[2023-10-22] MEDS ORDERED: ROSUVASTATIN CALCIUM 5 MG PO SCH (09:00)
[2023-10-22 09:29] LABS: BUN/Creat Ratio 34.17 Ratio (12.00-20.00); Blood Urea Nitrogen 20.5 mg/dL (9.0-27.0); Calcium 7.4 mg/dL (8.7-10.3); Carbon Dioxide 19.8 mmol/L (21.6-31.8); Chloride 107 mmol/L (96-109); Glucose 122 mg/dL (70-110); Magnesium 1.8 mg/dL (1.5-2.4); Potassium 3.3 mmol/L (3.5-5.5); Sodium 138 mmol/L (135-145)
[2023-10-22] MEDS ORDERED: POTASSIUM CHLORIDE ER 20 MEQ TAB.ER PO STA (10:17)
--- NOTE | 2023-10-22 12:32 | P.PN ---
Subjective Progress Note Date: 10/22/23 CHIEF COMPLAINT: Possible ileus HISTORY OF PRESENT ILLNESS: Patient sitting up in bed comfortably. She reports that her pain is doing better. She did have 2 bowel movements. She is having flatus. Denies any nausea or vomiting. Low-grade temp 100.5 last night. WBC 8.2 2HB8.6 platelets 297 sodium is 13 potassium is 3.3 creatinine 0.6 magnesium 1.8 PHYSICAL EXAM: VITAL SIGNS: Reviewed. GENERAL: Well-developed in no acute distress. ABDOMEN: Soft. Nondistended. Mild tenderness to the left lower abdomen NEUROLOGIC: Mildly confused ASSESSMENT: 1. Postoperative ileus 2. Status post diagnostic laparoscopy and lysis of extensive adhesions on 10/12/2023 3. Hypokalemia PLAN: -Continue full liquids -Increase activity level -Continue to work with PT OT. -Awaiting insurance authorization for ECF placement -Potassium being replaced -Incentive spirometer ordered due to low-grade fever -DVT prophylaxis subcu heparin Physician Invisible Braces Orthodontist note has been reviewed by physician. Signing provider agrees with the documented findings, assessment, and plan of care. Objective - Vital Signs Vital signs: Vital Signs Temp 97.5 F L 10/22/23 07:25 Pulse 64 10/22/23 07:25 Resp 20 10/22/23 07:25 BP 152/70 10/22/23 07:25 Pulse Ox 98 10/22/23 07:25 FiO2 Intake & Output 10/21/23 10/22/23 10/22/23 18:59 06:59 18:59 Other: Voiding Method Bedside Commode Diaper # Voids 1 1 # Bowel Movements 2 - Labs CBC & Chem 7: 10/22/23 05:54 10/22/23 05:54 Labs: Abnormal Lab Results - Last 24 Hours (Table) 10/21/23 10/21/23 10/22/23 Range/Units 06:54 06:54 05:54 RBC 2.62 L 3.00 L (4.10-5.20) X 10*6/uL Hgb 7.5 L 8.6 L (12.0-15.0) g/dL Hct 23.5 L 27.2 L (37.2-46.3) % MCHC 31.9 L 31.6 L (32.0-37.0) g/dL RDW 15.5 H 15.7 H (11.5-14.5) % Potassium (3.5-5.5) mmol/L Chloride 112 H (96-109) mmol/L Carbon Dioxide 19.1 L (21.6-31.8) mmol/L BUN 32.0 H (9.0-27.0) mg/dL BUN/Creatinine Ratio 45.71 H (12.00-20.00) Ratio Glucose 114 H (70-110) mg/dL Calcium 7.5 L (8.7-10.3) mg/dL 10/22/23 Range/Units 05:54 RBC (4.10-5.20) X 10*6/uL Hgb (12.0-15.0) g/dL Hct (37.2-46.3) % MCHC (32.0-37.0) g/dL RDW (11.5-14.5) % Potassium 3.3 L (3.5-5.5) mmol/L Chloride (96-109) mmol/L Carbon Dioxide 19.8 L (21.6-31.8) mmol/L BUN (9.0-27.0) mg/dL BUN/Creatinine Ratio 34.17 H (12.00-20.00) Ratio Glucose 122 H (70-110) mg/dL Calcium 7.4 L (8.7-10.3) mg/dL Microbiology - Last 24 Hours (Table) 10/17/23 23:57 Blood Culture - Preliminary Blood 10/17/23 23:40 Blood Culture - Preliminary Blood
[2023-10-22] MEDS: MAGNESIUM SULFATE-D5W PMX 1 GM in DEXTROSE/WATER 1 100ML.BAG IVPB SCH ×2 (12:41→13:58)
--- NOTE | 2023-10-22 13:06 | P.PN ---
Subjective Progress Note Date: 10/22/23 * 78-year-old female past medical history significant for small bowel obstruction with multiple surgeries, recent diagnostic laparoscopy with lysis of addition on 10/12/2023, gastroesophageal reflux disease, hypothyroidism, hyperlipidemia, hypertension, degenerative disc disease was discharged from the hospital post procedure on 10/16/23. Patient presents back to the emergency with complaints of worsening abdominal pain. Patient said her symptoms worsened after she was discharged from the hospital. Patient states ever since being home she had decreased oral intake and complained of diffuse abdominal discomfort. Patient was approximately home for one day * Workup initiated in ER included CBC which were WBC of 3 hemoglobin 12 platelet count of 339 INR of 1 * Serum chemistry obtained sodium 135 potassium 3.8, and Axert 20 B UN 18 creatinine 0.8-9 glucose 236 lactate of 3.3 albumin of 2.9 lipase of 48 MR is a 55 * Patient had a CT abdomen and pelvis done in ED which showed free air within the abdomen that could be related to surgery report was given to ED team. Patient is 5 days out post surgery with lysis of adhesions. Postop ileus versus small bowel obstruction suspected based on CT findings * Patient was resuscitated with IV fluid, started on IV antibiotic Zosyn and blood cultures collected and admitted under general surgery service * Internal medicine team consulted for comanagement. * 10/19/2023: Patient seen and evaluated bedside, patient had NG tube in place which patient removed herself. Abdominal distention has improved patient states nausea and abdominal pain has improved. Patient noted to have elevated creatinine, renal ultrasound ordered * 10/20/2023: Patient seen and evaluated bedside, patient alert and oriented 3, abdominal distention has improved, nancy intact hemoglobin noted to be around 8, no gross bleeding noted. Continue with fluid resuscitation general surgery team following. Dye to bleed was placed on general surgery recommendations continue patient on IV antibiotic * 10/21/2023: Patient seen and evaluated bedside, patient denies nausea, vomiting or abdominal pain, WBC count within normal limits, continue IV antibiotic. Calcium ionized levels within normal limits * 10/22/2023: Patient seen and evaluated bedside, in my evaluation patient is alert and oriented 3 patient seen by surgery, tolerating liquid diet, continue IV antibiotic. Blood cultures no growth to date. WBC within normal limits M lobe and 8.6 platelet count 297 potassium 3.3 replaced, magnesium 1.8 replaced REVIEW OF SYSTEMS: Nausea improved, abdominal pain improved ,decreased appetite CONSTITUTIONAL: No fever, no malaise, no fatigue. HEENT: No recent visual problems or hearing problems. Denied any sore throat. CARDIOVASCULAR: No chest pain, orthopnea, PND, no palpitations, no syncope. PULMONARY: No shortness of breath, no cough, no hemoptysis. GASTROINTESTINAL: Nausea, abdominal pain improved , decreased appetite improved NEUROLOGICAL: No headaches, no weakness, no numbness. HEMATOLOGICAL: Denies any bleeding or petechiae. GENITOURINARY: Denies any burning micturition, frequency, or urgency. MUSCULOSKELETAL/RHEUMATOLOGICAL: Denies any joint pain, swelling, or any muscle pain. ENDOCRINE: Denies any polyuria or polydipsia. PHYSICAL EXAMINATION: GENERAL: The patient is alert and oriented x3, ill appearance, oral mucosa dry HEENT: Pupils are round and equally reacting to light. EOMI Normocephalic, atraumatic. CARDIOVASCULAR: S1 and S2 present. No murmurs, rubs, or gallops. PULMONARY: Chest is clear to auscultation, no wheezing or crackles. ABDOMEN: Abdomen soft, nasogastric tube removed, nancy intact, bowel sounds present MUSCULOSKELETAL: No joint swelling or deformity. EXTREMITIES: No cyanosis, clubbing, or pedal edema. NEUROLOGICAL: Gross neurological examination did not reveal any focal deficits. SKIN: No rashes. Objective - Vital Signs Vital signs: Vital Signs Temp 97.5 F L 10/22/23 07:25 Pulse 64 10/22/23 07:25 Resp 20 10/22/23 07:25 BP 152/70 10/22/23 07:25 Pulse Ox 98 10/22/23 07:25 FiO2 Intake & Output 10/21/23 10/22/23 10/22/23 18:59 06:59 18:59 Weight 63.503 kg Other: Voiding Method Bedside Commode Bedside Commode Diaper Diaper # Voids 1 1 # Bowel Movements 2 - Labs CBC & Chem 7: 10/22/23 05:54 10/22/23 05:54 Labs: Abnormal Lab Results - Last 24 Hours (Table) 10/22/23 10/22/23 Range/Units 05:54 05:54 RBC 3.00 L (4.10-5.20) X 10*6/uL Hgb 8.6 L (12.0-15.0) g/dL Hct 27.2 L (37.2-46.3) % MCHC 31.6 L (32.0-37.0) g/dL RDW 15.7 H (11.5-14.5) % Potassium 3.3 L (3.5-5.5) mmol/L Carbon Dioxide 19.8 L (21.6-31.8) mmol/L BUN/Creatinine Ratio 34.17 H (12.00-20.00) Ratio Glucose 122 H (70-110) mg/dL Calcium 7.4 L (8.7-10.3) mg/dL Microbiology - Last 24 Hours (Table) 10/17/23 23:57 Blood Culture - Preliminary Blood 10/17/23 23:40 Blood Culture - Preliminary Blood Assessment and Plan Assessment: Assessment and plan * Postprocedure abdominal pain/ileus status post laparotomy and lysis of lesions postoperative day 10 * Sepsis likely intra-abdominal source * Acute renal failure secondary to prerenal etiology * Metabolic acidosis secondary to sepsis * Acute hyponatremia secondary to hypovolemia * History of hypertension * History of dyslipidemia * History of hypothyroid * In regards to post procedure ileus, defer management to general surgery team. Continue with serial abdominal exams serial lactate levels continue with appropriate fluid resuscitation to lactate normal, patient on liquid diet m anaged by surgery, on full liquids>> surgery team primary planning for discharge to [facility] * In regards to sepsis, blood cultures collected continue patient on IV Zosyn day 4 * In regards to acute hyponatremia continue fluid resuscitation follow-up on basic metabolic panel * In regards to hypertension, blood pressure low normal hold home antihypertensive medications * In regards to acute renal failure continue with IV hydration follow-up on renal function, renal ultrasound negative * In regards to dyslipidemia , continue statin, continue Synthyroid * CODE STATUS is full code
[2023-10-22] MEDS: HEPARIN SODIUM,PORCINE 5,000 UNIT/ML 1 ML VIAL SQ SCH (23:07)
[2023-10-23] MEDS: PANTOPRAZOLE 40 MG/10 ML VIAL IV SCH ×3 (00:05→21:40)
[2023-10-23] MEDS: PIPERACILLIN-TAZOBACTAM 3.375 GM in SODIUM CHLORIDE 0.9% 100 ML IVPB SCH ×2 (00:06→12:00)
[2023-10-23] MEDS: LEVOTHYROXINE 100 MCG TAB PO SCH (06:36)
[2023-10-23] MEDS: DOCUSATE 100 MG CAP PO SCH ×2 (08:11→21:40)
[2023-10-23] MEDS: OXYBUTYNIN 10 MG TAB.ER.24 PO SCH (08:11)
[2023-10-23] MEDS: HEPARIN SODIUM,PORCINE 5,000 UNIT/ML 1 ML VIAL SQ SCH ×2 (08:11→21:40)
[2023-10-23] MEDS: risperiDONE 0.25 MG TAB PO SCH ×2 (08:11→21:40)
[2023-10-23] MEDS: DONEPEZIL 5 MG TAB PO SCH (08:11)
[2023-10-23] MEDS: amLODIPine 2.5 MG TAB PO SCH (08:11)
[2023-10-23] MEDS: SERTRALINE 50 MG TAB PO SCH (08:12)
[2023-10-23] MEDS ORDERED: MAGNESIUM SULFATE-D5W PMX 1 GM in DEXTROSE/WATER 1 100ML.BAG IVPB SCH (09:15)
[2023-10-23 10:11] LABS: HCT 28.5 % (34.0-46.0); HGB 8.8 gm/dL (11.4-16.0); Hypochromasia Moderate; MCH 28.8 pg (25.0-35.0); MCHC 30.9 g/dL (31.0-37.0); MCV 93.1 fL (80.0-100.0); Mean Platelet Volume 8.8; Platelet Count 335 k/uL (150-450); RBC 3.06 m/uL (3.80-5.40); RDW 15.5 % (11.5-15.5); WBC 9.5 k/uL (3.8-10.6)
[2023-10-23 10:35] LABS: African American GFR (CKD) >90 (>60 ml/min/1.73 sqM); Anion Gap 6 mmol/L; Blood Urea Nitrogen 13 mg/dL (7-17); Calcium 7.5 mg/dL (8.4-10.2); Carbon Dioxide 20 mmol/L (22-30); Chloride 108 mmol/L (98-107); Glucose 102 mg/dL (74-99); Non-African American GFR(CKD) >90 (>60 ml/min/1.73 sqM); Potassium 3.6 mmol/L (3.5-5.1); Sodium 134 mmol/L (137-145)
[2023-10-23] MEDS: SODIUM CHLORIDE 0.9% 1,000 ML IV SCH (11:25)
--- NOTE | 2023-10-23 12:23 | P.PN ---
Subjective Progress Note Date: 10/23/23 * 78-year-old female past medical history significant for small bowel obstruction with multiple surgeries, recent diagnostic laparoscopy with lysis of addition on 10/12/2023, gastroesophageal reflux disease, hypothyroidism, hyperlipidemia, hypertension, degenerative disc disease was discharged from the hospital post procedure on 10/16/23. Patient presents back to the emergency with complaints of worsening abdominal pain. Patient said her symptoms worsened after she was discharged from the hospital. Patient states ever since being home she had decreased oral intake and complained of diffuse abdominal discomfort. Patient was approximately home for one day * Workup initiated in ER included CBC which were WBC of 3 hemoglobin 12 platelet count of 339 INR of 1 * Serum chemistry obtained sodium 135 potassium 3.8, and Axert 20 B UN 18 creatinine 0.8-9 glucose 236 lactate of 3.3 albumin of 2.9 lipase of 48 MR is a 55 * Patient had a CT abdomen and pelvis done in ED which showed free air within the abdomen that could be related to surgery report was given to ED team. Patient is 5 days out post surgery with lysis of adhesions. Postop ileus versus small bowel obstruction suspected based on CT findings * Patient was resuscitated with IV fluid, started on IV antibiotic Zosyn and blood cultures collected and admitted under general surgery service * Internal medicine team consulted for comanagement. * 10/19/2023: Patient seen and evaluated bedside, patient had NG tube in place which patient removed herself. Abdominal distention has improved patient states nausea and abdominal pain has improved. Patient noted to have elevated creatinine, renal ultrasound ordered * 10/20/2023: Patient seen and evaluated bedside, patient alert and oriented 3, abdominal distention has improved, nancy intact hemoglobin noted to be around 8, no gross bleeding noted. Continue with fluid resuscitation general surgery team following. Dye to bleed was placed on general surgery recommendations continue patient on IV antibiotic * 10/21/2023: Patient seen and evaluated bedside, patient denies nausea, vomiting or abdominal pain, WBC count within normal limits, continue IV antibiotic. Calcium ionized levels within normal limits * 10/22/2023: Patient seen and evaluated bedside, in my evaluation patient is alert and oriented 3 patient seen by surgery, tolerating liquid diet, continue IV antibiotic. Blood cultures no growth to date. WBC within normal limits M lobe and 8.6 platelet count 297 potassium 3.3 replaced, magnesium 1.8 replaced * 10/23/2023: Patient seen and evaluated bedside, patient is alert and oriented to person and situation during conversation patient does get confused, requested another IV line and replace, pro-calcitonin minimally elevated white blood cell count within normal limits patient afebrile we'll discontinue antibiotics and monitor patient received IV Zosyn for 6 days. Surgery team following patient continues to remain weak hence will need discharge to rehab REVIEW OF SYSTEMS: CONSTITUTIONAL: No fever, no malaise, no fatigue. HEENT: No recent visual problems or hearing problems. Denied any sore throat. CARDIOVASCULAR: No chest pain, orthopnea, PND, no palpitations, no syncope. PULMONARY: No shortness of breath, no cough, no hemoptysis. GASTROINTESTINAL: Nausea resolved, abdominal pain improved , decreased appetite improved NEUROLOGICAL: No headaches, no weakness, no numbness. HEMATOLOGICAL: Denies any bleeding or petechiae. GENITOURINARY: Denies any burning micturition, frequency, or urgency. MUSCULOSKELETAL/RHEUMATOLOGICAL: Denies any joint pain, swelling, or any muscle pain. ENDOCRINE: Denies any polyuria or polydipsia. PHYSICAL EXAMINATION: GENERAL: The patient is alert and oriented x3, ill appearance, oral mucosa dry HEENT: Pupils are round and equally reacting to light. EOMI Normocephalic, atraumatic. CARDIOVASCULAR: S1 and S2 present. No murmurs, rubs, or gallops. PULMONARY: Chest is clear to auscultation, no wheezing or crackles. ABDOMEN: Abdomen soft, nasogastric tube removed, nancy intact, bowel sounds present MUSCULOSKELETAL: No joint swelling or deformity. EXTREMITIES: No cyanosis, clubbing, or pedal edema. NEUROLOGICAL: Gross neurological examination did not reveal any focal deficits. SKIN: No rashes. Objective - Vital Signs Vital signs: Vital Signs Temp 97.9 F 10/23/23 07:53 Pulse 66 10/23/23 07:53 Resp 18 10/23/23 07:53 BP 158/58 10/23/23 07:53 Pulse Ox 97 10/23/23 07:53 FiO2 Intake & Output 10/22/23 10/23/23 10/23/23 18:59 06:59 18:59 Weight 63.503 kg Other: Voiding Method Bedside Commode Diaper Diaper Diaper External Catheter External Catheter # Voids 2 3 - Labs CBC & Chem 7: 10/23/23 06:57 10/23/23 06:49 Labs: Abnormal Lab Results - Last 24 Hours (Table) 10/23/23 10/23/23 10/23/23 Range/Units 06:49 06:57 06:57 RBC 3.06 L (3.80-5.40) m/uL Hgb 8.8 L (11.4-16.0) gm/dL Hct 28.5 L (34.0-46.0) % MCHC 30.9 L (31.0-37.0) g/dL Sodium 134 L (137-145) mmol/L Chloride 108 H (98-107) mmol/L Carbon Dioxide 20 L (22-30) mmol/L Creatinine 0.44 L (0.52-1.04) mg/dL Glucose 102 H (74-99) mg/dL Calcium 7.5 L (8.4-10.2) mg/dL Procalcitonin 1.75 H (0.02-0.09) ng/mL Assessment and Plan Assessment: Assessment and plan * Postprocedure abdominal pain/ileus status post laparotomy and lysis of lesions postoperative day 10 * Sepsis likely intra-abdominal source * Acute renal failure secondary to prerenal etiology * Metabolic acidosis secondary to sepsis * Acute hyponatremia secondary to hypovolemia * History of hypertension * History of dyslipidemia * History of hypothyroid * In regards to post procedure ileus, defer management to general surgery team. Continue with serial abdominal exams , continue with appropriate fluid resuscitation , patient on liquid diet managed by surgery, on full liquids>> surgery team primary planning for discharge to ECF * In regards to sepsis, blood cultures no growth to date, received IV Zosyn for 6 days, discontinued on 10/23. Pro-calcitonin minimally elevated continue to trend and follow up on CRP levels * In regards to acute hyponatremia continue fluid resuscitation follow-up on basic metabolic panel * In regards to hypertension, blood pressure low normal hold home antihypertensive medications * In regards to acute renal failure continue with IV hydration follow-up on renal function, renal ultrasound negative * In regards to dyslipidemia , continue statin, continue Synthyroid * CODE STATUS is full code
[2023-10-23 12:29] LABS: C Reactive Protein 15.3 mg/dL (<1.0)
--- NOTE | 2023-10-23 13:26 | P.PN ---
Subjective Progress Note Date: 10/23/23 CHIEF COMPLAINT: Ileus HISTORY OF PRESENT ILLNESS: Patient sitting at bedside chair. She appears more confused. Per nursing staff a bowel movement. No nausea or vomiting reported. Patient only a small amount of liquids. Medicine service has restarted her on IV fluids for dehydration. Afebrile. WBC is 9.5 Hgb 8.8 platelets 335 sodium is 134 potassium 3.6 creatinine 0.44. Medicine service has restarted IV fluids for dehydration. Patient only eating about 25% of her meals per nurse. PHYSICAL EXAM: VITAL SIGNS: Reviewed. GENERAL: Well-developed in no acute distress. ABDOMEN: Soft. Nondistended. nontender. Incision site clean, dry and intact NEUROLOGIC: confused ASSESSMENT: 1. Postoperative ileus 2. Status post diagnostic laparoscopy and lysis of extensive adhesions on 10/12/2023 for SBO 3. Hypokalemia improved 4. Confusion PLAN: -Continue full liquids -Increase activity level -Continue to work with PT OT. -Awaiting insurance authorization for ECF placement -Medicine services restarted IV fluids for dehydration -DVT prophylaxis subcu heparin Physician Cardboard Cutter note has been reviewed by physician. Signing provider agrees with the documented findings, assessment, and plan of care. Objective - Vital Signs Vital signs: Vital Signs Temp 97.9 F 10/23/23 07:53 Pulse 66 10/23/23 07:53 Resp 18 10/23/23 07:53 BP 158/58 10/23/23 07:53 Pulse Ox 97 10/23/23 07:53 FiO2 Intake & Output 10/22/23 10/23/23 10/23/23 18:59 06:59 18:59 Weight 63.503 kg Other: Voiding Method Bedside Commode Diaper Diaper Diaper External Catheter External Catheter # Voids 2 3 - Labs CBC & Chem 7: 10/23/23 06:57 10/23/23 06:49 Labs: Abnormal Lab Results - Last 24 Hours (Table) 10/23/23 10/23/23 10/23/23 Range/Units 06:49 06:57 06:57 RBC 3.06 L (3.80-5.40) m/uL Hgb 8.8 L (11.4-16.0) gm/dL Hct 28.5 L (34.0-46.0) % MCHC 30.9 L (31.0-37.0) g/dL Sodium 134 L (137-145) mmol/L Chloride 108 H (98-107) mmol/L Carbon Dioxide 20 L (22-30) mmol/L Creatinine 0.44 L (0.52-1.04) mg/dL Glucose 102 H (74-99) mg/dL Calcium 7.5 L (8.4-10.2) mg/dL C-Reactive Protein 15.3 H (<1.0) mg/dL Procalcitonin 1.75 H (0.02-0.09) ng/mL Microbiology - Last 24 Hours (Table) 10/17/23 23:57 Blood Culture - Final Blood 10/17/23 23:40 Blood Culture - Final Blood
[2023-10-23 14:50] LABS: VBG PH 7.5 (7.31-7.41)
[2023-10-23] MEDS: metroNIDAZOLE 500 MG TAB PO SCH ×2 (15:54→21:39)
[2023-10-23] MEDS: CEFDINIR 300 MG CAP PO SCH ×2 (15:55→21:40)
[2023-10-24] MEDS: LEVOTHYROXINE 100 MCG TAB PO SCH (05:45)
[2023-10-24 07:17] LABS: HCT 27.6 % (34.0-46.0); HGB 8.9 gm/dL (11.4-16.0); MCH 29.1 pg (25.0-35.0); MCHC 32.1 g/dL (31.0-37.0); MCV 90.5 fL (80.0-100.0); Mean Platelet Volume 8.6; Platelet Count 332 k/uL (150-450); RBC 3.05 m/uL (3.80-5.40); RDW 15.2 % (11.5-15.5); WBC 8.1 k/uL (3.8-10.6)
[2023-10-24 07:46] LABS: African American GFR (CKD) >90 (>60 ml/min/1.73 sqM); Anion Gap 5 mmol/L; Blood Urea Nitrogen 10 mg/dL (7-17); Calcium 7.1 mg/dL (8.4-10.2); Carbon Dioxide 19 mmol/L (22-30); Chloride 108 mmol/L (98-107); Glucose 79 mg/dL (74-99); Non-African American GFR(CKD) >90 (>60 ml/min/1.73 sqM); Potassium 3.4 mmol/L (3.5-5.1); Sodium 132 mmol/L (137-145)
[2023-10-24 07:59] LABS: C Reactive Protein 14.7 mg/dL (<1.0)
[2023-10-24] MEDS: amLODIPine 2.5 MG TAB PO SCH (09:27)
[2023-10-24] MEDS: DOCUSATE 100 MG CAP PO SCH ×2 (09:27→21:41)
[2023-10-24] MEDS: PANTOPRAZOLE 40 MG/10 ML VIAL IV SCH ×2 (09:27→21:41)
[2023-10-24] MEDS: ACETAMINOPHEN TAB 325 MG TAB PO PRN (09:28)
[2023-10-24] MEDS: DONEPEZIL 5 MG TAB PO SCH (09:28)
[2023-10-24] MEDS: SERTRALINE 50 MG TAB PO SCH (09:28)
[2023-10-24] MEDS: HEPARIN SODIUM,PORCINE 5,000 UNIT/ML 1 ML VIAL SQ SCH ×2 (09:28→21:41)
[2023-10-24] MEDS: metroNIDAZOLE 500 MG TAB PO SCH ×3 (09:28→21:41)
[2023-10-24] MEDS: CEFDINIR 300 MG CAP PO SCH ×2 (09:28→21:41)
[2023-10-24] MEDS: OXYBUTYNIN 10 MG TAB.ER.24 PO SCH (09:28)
[2023-10-24] MEDS: SODIUM CHLORIDE 0.9% 1,000 ML IV SCH (09:29)
[2023-10-24] MEDS: risperiDONE 0.25 MG TAB PO SCH ×2 (09:29→21:41)
[2023-10-24] MEDS ORDERED: POTASSIUM CHLORIDE ER 20 MEQ TAB.ER PO STA (10:25)
--- NOTE | 2023-10-24 13:27 | P.PN ---
Subjective Progress Note Date: 10/24/23 * 78-year-old female past medical history significant for small bowel obstruction with multiple surgeries, recent diagnostic laparoscopy with lysis of addition on 10/12/2023, gastroesophageal reflux disease, hypothyroidism, hyperlipidemia, hypertension, degenerative disc disease was discharged from the hospital post procedure on 10/16/23. Patient presents back to the emergency with complaints of worsening abdominal pain. Patient said her symptoms worsened after she was discharged from the hospital. Patient states ever since being home she had decreased oral intake and complained of diffuse abdominal discomfort. Patient was approximately home for one day * Workup initiated in ER included CBC which were WBC of 3 hemoglobin 12 platelet count of 339 INR of 1 * Serum chemistry obtained sodium 135 potassium 3.8, and Axert 20 B UN 18 creatinine 0.8-9 glucose 236 lactate of 3.3 albumin of 2.9 lipase of 48 MR is a 55 * Patient had a CT abdomen and pelvis done in ED which showed free air within the abdomen that could be related to surgery report was given to ED team. Patient is 5 days out post surgery with lysis of adhesions. Postop ileus versus small bowel obstruction suspected based on CT findings * Patient was resuscitated with IV fluid, started on IV antibiotic Zosyn and blood cultures collected and admitted under general surgery service * Internal medicine team consulted for comanagement. * 10/19/2023: Patient seen and evaluated bedside, patient had NG tube in place which patient removed herself. Abdominal distention has improved patient states nausea and abdominal pain has improved. Patient noted to have elevated creatinine, renal ultrasound ordered * 10/20/2023: Patient seen and evaluated bedside, patient alert and oriented 3, abdominal distention has improved, nancy intact hemoglobin noted to be around 8, no gross bleeding noted. Continue with fluid resuscitation general surgery team following. Dye to bleed was placed on general surgery recommendations continue patient on IV antibiotic * 10/21/2023: Patient seen and evaluated bedside, patient denies nausea, vomiting or abdominal pain, WBC count within normal limits, continue IV antibiotic. Calcium ionized levels within normal limits * 10/22/2023: Patient seen and evaluated bedside, in my evaluation patient is alert and oriented 3 patient seen by surgery, tolerating liquid diet, continue IV antibiotic. Blood cultures no growth to date. WBC within normal limits M lobe and 8.6 platelet count 297 potassium 3.3 replaced, magnesium 1.8 replaced * 10/23/2023: Patient seen and evaluated bedside, patient is alert and oriented to person and situation during conversation patient does get confused, requested another IV line and replace, pro-calcitonin minimally elevated white blood cell count within normal limits patient afebrile we'll discontinue antibiotics and monitor patient received IV Zosyn for 6 days. Surgery team following patient continues to remain weak hence will need discharge to rehab * 10/24/2023: Patient seen and evaluated bedside, patient was sleeping easily arousable, mentation seems to have improved, venous blood gas reviewed electronic panel reviewed, CRP continues to remain elevated we'll continue patient on oral antibiotic continue to monitor nutrition and advance diet as tolerated per surgery. Continue with fluid resuscitation, patient does have acute delirium continue with frequent reorientation REVIEW OF SYSTEMS: CONSTITUTIONAL: No fever, no malaise, no fatigue. HEENT: No recent visual problems or hearing problems. Denied any sore throat. CARDIOVASCULAR: No chest pain, orthopnea, PND, no palpitations, no syncope. PULMONARY: No shortness of breath, no cough, no hemoptysis. GASTROINTESTINAL: Nausea resolved, abdominal pain improved , decreased appetite improved NEUROLOGICAL: No headaches, no weakness, no numbness. HEMATOLOGICAL: Denies any bleeding or petechiae. GENITOURINARY: Denies any burning micturition, frequency, or urgency. MUSCULOSKELETAL/RHEUMATOLOGICAL: Denies any joint pain, swelling, or any muscle pain. ENDOCRINE: Denies any polyuria or polydipsia. PHYSICAL EXAMINATION: GENERAL: The patient is alert and oriented x3, ill appearance, oral mucosa dry HEENT: Pupils are round and equally reacting to light. EOMI Normocephalic, atraumatic. CARDIOVASCULAR: S1 and S2 present. No murmurs, rubs, or gallops. PULMONARY: Chest is clear to auscultation, no wheezing or crackles. ABDOMEN: Abdomen soft, nasogastric tube removed, nancy intact, bowel sounds present MUSCULOSKELETAL: No joint swelling or deformity. EXTREMITIES: No cyanosis, clubbing, or pedal edema. NEUROLOGICAL: Gross neurological examination did not reveal any focal deficits. SKIN: No rashes. Objective - Vital Signs Vital signs: Vital Signs Temp 97.5 F L 10/24/23 07:45 Pulse 70 10/24/23 07:45 Resp 19 10/24/23 07:45 BP 147/63 10/24/23 07:45 Pulse Ox 96 10/24/23 07:45 FiO2 Intake & Output 10/23/23 10/24/23 10/24/23 18:59 06:59 18:59 Other: Voiding Method Diaper Diaper External Catheter External Catheter # Voids 2 1 1 - Labs CBC & Chem 7: 10/24/23 06:35 10/24/23 06:35 Labs: Abnormal Lab Results - Last 24 Hours (Table) 10/23/23 10/24/23 10/24/23 Range/Units 14:35 06:35 06:35 RBC 3.05 L (3.80-5.40) m/uL Hgb 8.9 L (11.4-16.0) gm/dL Hct 27.6 L (34.0-46.0) % VBG pH 7.50 H (7.31-7.41) VBG pCO2 30 L (37-51) mmHg VBG HCO3 23 L (24-28) mmol/L Sodium 132 L (137-145) mmol/L Potassium 3.4 L (3.5-5.1) mmol/L Chloride 108 H (98-107) mmol/L Carbon Dioxide 19 L (22-30) mmol/L Creatinine 0.38 L (0.52-1.04) mg/dL Calcium 7.1 L (8.4-10.2) mg/dL C-Reactive Protein 14.7 H (<1.0) mg/dL Microbiology - Last 24 Hours (Table) 10/17/23 23:57 Blood Culture - Final Blood 10/17/23 23:40 Blood Culture - Final Blood Assessment and Plan Assessment: Assessment and plan * Postprocedure abdominal pain/ileus status post laparotomy and lysis of lesions postoperative day 12 * Sepsis likely intra-abdominal source * Acute renal failure secondary to prerenal etiology * Metabolic acidosis secondary to sepsis * Acute metabolic encephalopathy, with acute delirium * Acute hyponatremia secondary to hypovolemia * History of hypertension * History of dyslipidemia * History of hypothyroid * In regards to post procedure ileus, defer management to general surgery team. Continue with serial abdominal exams , continue with appropriate fluid resuscitation , patient on liquid diet managed by surgery, on full liquids>> surgery team primary planning for discharge to ECF * In regards to sepsis, blood cultures no growth to date, received IV Zosyn for 6 days, discontinued on 10/23. Pro-calcitonin minimally elevated continue to trend and follow up on CRP levels, transition to oral antibiotics on oral Ceftin and Flagyl * In regards to acute hyponatremia continue fluid resuscitation follow-up on basic metabolic panel * In regards to hypertension, blood pressure low normal hold home antihypertensive medications * In regards to acute renal failure continue with IV hydration follow-up on renal function, renal ultrasound negative * In regards to dyslipidemia , continue statin, continue Synthyroid * CODE STATUS is full code
[2023-10-24] MEDS: THIAMINE 100 MG TAB PO SCH (13:47)
--- NOTE | 2023-10-24 16:08 | P.PN ---
Subjective Progress Note Date: 10/24/23 Principal diagnosis: ilius moderat improvement, tolerating clears, no events overnight Objective - Vital Signs Vital signs: Vital Signs Temp 97.4 F L 10/24/23 14:42 Pulse 66 10/24/23 14:42 Resp 18 10/24/23 14:42 BP 152/54 10/24/23 14:42 Pulse Ox 98 10/24/23 14:42 FiO2 Intake & Output 10/23/23 10/24/23 10/24/23 18:59 06:59 18:59 Other: Voiding Method Diaper Diaper Diaper External Catheter External Catheter External Catheter # Voids 2 1 1 - Constitutional General appearance: Present: cooperative - EENT Eyes: Present: PERRLA - Neck Neck: Present: normal ROM. Absent: stridor, thyromegaly - Respiratory Respiratory: bilateral: CTA, negative: wheezing - Cardiovascular Rhythm: regular Heart sounds: normal: S1, S2 - Gastrointestinal General gastrointestinal: Present: decreased bowel sounds, soft. Absent: tenderness - Labs CBC & Chem 7: 10/24/23 06:35 10/24/23 06:35 Labs: Abnormal Lab Results - Last 24 Hours (Table) 10/24/23 10/24/23 Range/Units 06:35 06:35 RBC 3.05 L (3.80-5.40) m/uL Hgb 8.9 L (11.4-16.0) gm/dL Hct 27.6 L (34.0-46.0) % Sodium 132 L (137-145) mmol/L Potassium 3.4 L (3.5-5.1) mmol/L Chloride 108 H (98-107) mmol/L Carbon Dioxide 19 L (22-30) mmol/L Creatinine 0.38 L (0.52-1.04) mg/dL Calcium 7.1 L (8.4-10.2) mg/dL C-Reactive Protein 14.7 H (<1.0) mg/dL Microbiology - Last 24 Hours (Table) 10/17/23 23:57 Blood Culture - Final Blood 10/17/23 23:40 Blood Culture - Final Blood Assessment and Plan (1) Ileus Current Visit: Yes Status: Acute Code(s): K56.7 - ILEUS, UNSPECIFIED SNOMED Code(s): 713897119 (2) Hyponatremia Current Visit: No Status: Acute Code(s): E87.1 - HYPO-OSMOLALITY AND HYPONATREMIA SNOMED Code(s): 81933244 Plan: do not advance diet ambulate tid hydratiion DVT prophylaxix serial abdominal exam no immediate surgical intervention needed
[2023-10-25] MEDS: SODIUM CHLORIDE 0.9% 1,000 ML IV SCH ×2 (03:20→21:20)
[2023-10-25] MEDS: LEVOTHYROXINE 100 MCG TAB PO SCH (06:00)
[2023-10-25] MEDS: amLODIPine 2.5 MG TAB PO SCH (08:18)
[2023-10-25] MEDS: CEFDINIR 300 MG CAP PO SCH ×2 (08:18→21:15)
[2023-10-25] MEDS: THIAMINE 100 MG TAB PO SCH (08:18)
[2023-10-25] MEDS: metroNIDAZOLE 500 MG TAB PO SCH ×3 (08:18→21:16)
[2023-10-25] MEDS: OXYBUTYNIN 10 MG TAB.ER.24 PO SCH (08:18)
[2023-10-25] MEDS: HEPARIN SODIUM,PORCINE 5,000 UNIT/ML 1 ML VIAL SQ SCH ×2 (08:18→21:16)
[2023-10-25] MEDS: risperiDONE 0.25 MG TAB PO SCH ×2 (08:18→21:16)
[2023-10-25] MEDS: PANTOPRAZOLE 40 MG/10 ML VIAL IV SCH ×2 (08:18→21:16)
[2023-10-25] MEDS: SERTRALINE 50 MG TAB PO SCH (08:18)
[2023-10-25] MEDS: DONEPEZIL 5 MG TAB PO SCH (08:18)
[2023-10-25] MEDS: DOCUSATE 100 MG CAP PO SCH ×2 (08:18→21:16)
--- NOTE | 2023-10-25 08:28 | XR ---
KUB portable HISTORY: Follow-up bowel obstruction. COMPARISON: 03/13/2023. TECHNIQUE: Single supine portable view of the abdomen was obtained. FINDINGS: There are multiple metallic soft tissue nancy in the midline abdomen and pelvis indicating recent s urgery. There are multiple clips in the right upper quadrant. Cholecystectomy. Postsurgical changes a re also identified at the gastroesophageal junction. The bowel gas pattern is nonspecific and there is no evidence of obstruction. No suspicious abdominal or pelvic calcifications are seen. The osseous structures are grossly intact. IMPRESSION: Nonspecific abdomen without evidence of bowel obstruction or ileus.
[2023-10-25 09:10] LABS: BUN/Creat Ratio 25.75 Ratio (12.00-20.00); Blood Urea Nitrogen 10.3 mg/dL (9.0-27.0); Calcium 7.7 mg/dL (8.7-10.3); Chloride 107 mmol/L (96-109); Glucose 68 mg/dL (70-110); Potassium 3.9 mmol/L (3.5-5.5); Sodium 139 mmol/L (135-145)
[2023-10-25 09:48] LABS: HCT 24.2 % (37.2-46.3); HGB 7.7 g/dL (12.0-15.0); MCH 28.5 pg (27.0-32.0); MCHC 31.8 g/dL (32.0-37.0); MCV 89.6 FL (80.0-97.0); Mean Platelet Volume 9.9 FL (9.5-12.2); NRBC Per 100 WBC 0 X 10*3/uL (0.00-0.01); Platelet Count 433 X 10*3/uL (140-440); RDW 15.8 % (11.5-14.5); WBC 11.25 X 10*3/uL (4.50-10.00)
--- NOTE | 2023-10-25 10:55 | P.PN ---
Subjective Progress Note Date: 10/25/23 Principal diagnosis: Patient feels better. She's had some oral intake. On signs appear stable. Abdomen soft nontender. Incision is well-healed. Resolving postoperative ileus. Patient will be discharged home tomorrow hopefully. Objective - Vital Signs Vital signs: Vital Signs Temp 98.1 F 10/25/23 07:58 Pulse 85 10/25/23 08:00 Resp 16 10/25/23 07:58 BP 146/57 10/25/23 07:58 Pulse Ox 98 10/25/23 07:58 FiO2 Intake & Output 10/24/23 10/25/23 10/25/23 18:59 06:59 18:59 Intake Total 400 Balance 400 Intake: Oral 400 Other: Voiding Method Diaper Diaper Diaper External Catheter External Catheter External Catheter # Voids 2 1 1 - Labs CBC & Chem 7: 10/25/23 05:35 10/25/23 05:35 Labs: Abnormal Lab Results - Last 24 Hours (Table) 10/25/23 10/25/23 Range/Units 05:35 05:35 WBC 11.25 H (4.50-10.00) X 10*3/uL RBC 2.70 L (4.10-5.20) X 10*6/uL Hgb 7.7 L (12.0-15.0) g/dL Hct 24.2 L (37.2-46.3) % MCHC 31.8 L (32.0-37.0) g/dL RDW 15.8 H (11.5-14.5) % Carbon Dioxide 16.0 L (21.6-31.8) mmol/L Anion Gap 16.00 H (4.00-12.00) mmol/L Creatinine 0.4 L (0.6-1.5) mg/dL BUN/Creatinine Ratio 25.75 H (12.00-20.00) Ratio Glucose 68 L (70-110) mg/dL Calcium 7.7 L (8.7-10.3) mg/dL
--- NOTE | 2023-10-25 12:06 | P.PN ---
Subjective Progress Note Date: 10/25/23 * 78-year-old female past medical history significant for small bowel obstruction with multiple surgeries, recent diagnostic laparoscopy with lysis of addition on 10/12/2023, gastroesophageal reflux disease, hypothyroidism, hyperlipidemia, hypertension, degenerative disc disease was discharged from the hospital post procedure on 10/16/23. Patient presents back to the emergency with complaints of worsening abdominal pain. Patient said her symptoms worsened after she was discharged from the hospital. Patient states ever since being home she had decreased oral intake and complained of diffuse abdominal discomfort. Patient was approximately home for one day * Workup initiated in ER included CBC which were WBC of 3 hemoglobin 12 platelet count of 339 INR of 1 * Serum chemistry obtained sodium 135 potassium 3.8, and Axert 20 B UN 18 creatinine 0.8-9 glucose 236 lactate of 3.3 albumin of 2.9 lipase of 48 MR is a 55 * Patient had a CT abdomen and pelvis done in ED which showed free air within the abdomen that could be related to surgery report was given to ED team. Patient is 5 days out post surgery with lysis of adhesions. Postop ileus versus small bowel obstruction suspected based on CT findings * Patient was resuscitated with IV fluid, started on IV antibiotic Zosyn and blood cultures collected and admitted under general surgery service * Internal medicine team consulted for comanagement. * 10/19/2023: Patient seen and evaluated bedside, patient had NG tube in place which patient removed herself. Abdominal distention has improved patient states nausea and abdominal pain has improved. Patient noted to have elevated creatinine, renal ultrasound ordered * 10/20/2023: Patient seen and evaluated bedside, patient alert and oriented 3, abdominal distention has improved, nancy intact hemoglobin noted to be around 8, no gross bleeding noted. Continue with fluid resuscitation general surgery team following. Dye to bleed was placed on general surgery recommendations continue patient on IV antibiotic * 10/21/2023: Patient seen and evaluated bedside, patient denies nausea, vomiting or abdominal pain, WBC count within normal limits, continue IV antibiotic. Calcium ionized levels within normal limits * 10/22/2023: Patient seen and evaluated bedside, in my evaluation patient is alert and oriented 3 patient seen by surgery, tolerating liquid diet, continue IV antibiotic. Blood cultures no growth to date. WBC within normal limits M lobe and 8.6 platelet count 297 potassium 3.3 replaced, magnesium 1.8 replaced * 10/23/2023: Patient seen and evaluated bedside, patient is alert and oriented to person and situation during conversation patient does get confused, requested another IV line and replace, pro-calcitonin minimally elevated white blood cell count within normal limits patient afebrile we'll discontinue antibiotics and monitor patient received IV Zosyn for 6 days. Surgery team following patient continues to remain weak hence will need discharge to rehab * 10/24/2023: Patient seen and evaluated bedside, patient was sleeping easily arousable, mentation seems to have improved, venous blood gas reviewed electronic panel reviewed, CRP continues to remain elevated we'll continue patient on oral antibiotic continue to monitor nutrition and advance diet as tolerated per surgery. Continue with fluid resuscitation, patient does have acute delirium continue with frequent reorientation * 10/25/2023: Patient seen and evaluated at bedside, appreciate input from General surgery. Follow-up on inflammatory markers >> patient was on IV Zosyn for 6 days transitioned to oral antibiotics likely source intra- abdominal, follow-up x-ray KUB obtained showed resolution of her ileus. Continue on cefdinir/Flagyl for additional 4 more days. End date of 10/29/23 REVIEW OF SYSTEMS: CONSTITUTIONAL: No fever, no malaise, no fatigue. HEENT: No recent visual problems or hearing problems. Denied any sore throat. CARDIOVASCULAR: No chest pain, orthopnea, PND, no palpitations, no syncope. on NEUROLOGICAL: No headaches, no weakness, no numbness. HEMATOLOGICAL: Denies any bleeding or petechiae. GENITOURINARY: Denies any burning micturition, frequency, or urgency. MUSCULOSKELETAL/RHEUMATOLOGICAL: Denies any joint pain, swelling, or any muscle pain. ENDOCRINE: Denies any polyuria or polydipsia. PHYSICAL EXAMINATION: GENERAL: The patient is alert and oriented x 2 person and situation , ill appearance, oral mucosa dry HEENT: Pupils are round and equally reacting to light. EOMI Normocephalic, atraumatic. CARDIOVASCULAR: S1 and S2 present. No murmurs, rubs, or gallops. PULMONARY: Chest is clear to auscultation, no wheezing or crackles. ABDOMEN: Abdomen soft, nasogastric tube removed, nancy intact, bowel sounds present MUSCULOSKELETAL: No joint swelling or deformity. EXTREMITIES: No cyanosis, clubbing, or pedal edema. NEUROLOGICAL: Gross neurological examination did not reveal any focal deficits. grossly slow to respond, little forgetful however mentation has improved SKIN: No rashes. Objective - Vital Signs Vital signs: Vital Signs Temp 97.9 F 10/24/23 20:00 Pulse 69 10/24/23 20:00 Resp 15 10/24/23 20:00 BP 158/72 10/24/23 20:00 Pulse Ox 98 10/24/23 20:00 FiO2 Intake & Output 10/24/23 10/24/23 10/25/23 06:59 18:59 06:59 Intake Total 400 Balance 400 Intake: Oral 400 Other: Voiding Method Diaper Diaper Diaper External Catheter External Catheter External Catheter # Voids 1 2 - Labs CBC & Chem 7: 10/25/23 05:35 10/25/23 05:35 Labs: Abnormal Lab Results - Last 24 Hours (Table) 10/24/23 10/24/23 Range/Units 06:35 06:35 RBC 3.05 L (3.80-5.40) m/uL Hgb 8.9 L (11.4-16.0) gm/dL Hct 27.6 L (34.0-46.0) % Sodium 132 L (137-145) mmol/L Potassium 3.4 L (3.5-5.1) mmol/L Chloride 108 H (98-107) mmol/L Carbon Dioxide 19 L (22-30) mmol/L Creatinine 0.38 L (0.52-1.04) mg/dL Calcium 7.1 L (8.4-10.2) mg/dL C-Reactive Protein 14.7 H (<1.0) mg/dL Assessment and Plan Assessment: Assessment and plan * Postprocedure abdominal pain/ileus status post laparotomy and lysis of lesions postoperative day 14 * Sepsis likely intra-abdominal source * Acute renal failure secondary to prerenal etiology * Metabolic acidosis secondary to sepsis * Acute metabolic encephalopathy, with acute delirium * Acute hyponatremia secondary to hypovolemia * Impaired cognition * History of hypertension * History of dyslipidemia * History of hypothyroid * In regards to post procedure ileus, defer management to general surgery team. Continue with serial abdominal exams , continue with appropriate fluid resuscitation , patient on liquid diet managed by surgery, on full liquids>> surgery team primary planning for discharge to ECF * In regards to sepsis, blood cultures no growth to date, received IV Zosyn for 6 days, discontinued on 10/23. Pro-calcitonin minimally elevated>> continue to trend and follow up on CRP levels, transitioned to oral antibiotics on oral Ceftin and Flagyl(Total day 07/18 Antibiotics) * In regards to acute hyponatremia continue fluid resuscitation follow-up on basic metabolic panel * In regards to hypertension, blood pressure improved, resumed back on amlodipine * In regards to acute renal failure continue with IV hydration follow-up on renal function, renal ultrasound negative * In regards to dyslipidemia , continue statin, continue Synthyroid * In regards to impaired cognition continue patient on donepezil, outpatient fo llow-up with PCP recommended/acute delirium has improved * CODE STATUS is full code Time with Patient: Greater than 30
[2023-10-26] MEDS: LEVOTHYROXINE 100 MCG TAB PO SCH (06:18)
[2023-10-26 07:41] VITALS: RESP 16
[2023-10-26 09:07] LABS: HCT 24.2 % (37.2-46.3); HGB 7.9 g/dL (12.0-15.0); MCH 28.7 pg (27.0-32.0); MCHC 32.6 g/dL (32.0-37.0); Mean Platelet Volume 9.7 FL (9.5-12.2); NRBC Per 100 WBC 0 X 10*3/uL (0.00-0.01); Platelet Count 472 X 10*3/uL (140-440); RBC 2.75 X 10*6/uL (4.10-5.20); RDW 15.9 % (11.5-14.5); WBC 10.24 X 10*3/uL (4.50-10.00)
[2023-10-26] MEDS: PANTOPRAZOLE 40 MG/10 ML VIAL IV SCH (09:21)
[2023-10-26 09:24] LABS: Blood Urea Nitrogen 9.2 mg/dL (9.0-27.0); Calcium 7.5 mg/dL (8.7-10.3); Carbon Dioxide 17.7 mmol/L (21.6-31.8); Chloride 107 mmol/L (96-109); Glucose 102 mg/dL (70-110); Potassium 3.2 mmol/L (3.5-5.5); Sodium 139 mmol/L (135-145)
[2023-10-26] MEDS: metroNIDAZOLE 500 MG TAB PO SCH ×2 (09:44→15:50)
[2023-10-26] MEDS: DOCUSATE 100 MG CAP PO SCH (09:44)
[2023-10-26] MEDS: OXYBUTYNIN 10 MG TAB.ER.24 PO SCH (09:44)
[2023-10-26] MEDS: DONEPEZIL 5 MG TAB PO SCH (09:44)
[2023-10-26] MEDS: HEPARIN SODIUM,PORCINE 5,000 UNIT/ML 1 ML VIAL SQ SCH (09:44)
[2023-10-26] MEDS: amLODIPine 2.5 MG TAB PO SCH (09:44)
[2023-10-26] MEDS: risperiDONE 0.25 MG TAB PO SCH (09:44)
[2023-10-26] MEDS: SERTRALINE 50 MG TAB PO SCH (09:44)
[2023-10-26] MEDS: CEFDINIR 300 MG CAP PO SCH (09:44)
[2023-10-26] MEDS: THIAMINE 100 MG TAB PO SCH (09:44)
[2023-10-26] MEDS: POTASSIUM CHLORIDE ER 20 MEQ TAB.ER PO SCH ×2 (10:33→12:23)
[2023-10-26 12:37] VITALS: BP 150/66; PULSE 79; TEMP 98
--- NOTE | 2023-10-26 13:44 | P.DS ---
Providers Date of admission: 10/18/23 00:18 Expected date of discharge: 10/26/23 Attending physician: Deng Camara Consults: 10/18/23 00:15 Consult Physician Routine Consulting Provider: Gerardo Acosta Consult Reason/Comments: medical managment Do you want consulting provider notified?: Already Contacted Primary care physician: Stated None Hospital Course: Discharge diagnosis 1. Postoperative ileus 2. Status post diagnostic laparoscopy and lysis of extensive adhesions on 10/12/2023 for SBO 3. Hypokalemia improved Hospital course This is a 78-year-old female who presented to the hospital with increasing abdominal pain. She is status post diagnostic laparoscopy with lysis of adhesions for small bowel resection on 10/12/2023. Computed tomography scan completed showing evidence of postoperative ileus. Patient's pain has improved. She is tolerating diet. She is having bowel movements and flatus. She is afebrile. She is stable for discharge. Patient evaluated by physical therapy and will be discharged to rehab. Patient is stable for discharge. Please refer to chart for any further details. Physician Clean Out Driller Helper note has been reviewed by physician. Signing provider agrees with the documented findings, assessment, and plan of care. Patient Condition at Discharge: Stable Plan - Discharge Summary Discharge Rx Participant: Yes New Discharge Prescriptions: New Acetaminophen Tab [Tylenol Tab] 650 mg PO Q4H PRN #30 tablet PRN Reason: Pain Continue Oxybutynin Chloride [oxyBUTYnin chloride ER] 10 mg PO DAILY Donepezil [Aricept] 5 mg PO DAILY Aspirin EC [Ecotrin Low Dose] 81 mg PO DAILY Docusate [Colace] 100 mg PO BID #30 capsule amLODIPine [Norvasc] 2.5 mg PO DAILY Sertraline [Zoloft] 50 mg PO DAILY Levothyroxine Sodium [Synthroid] 100 mcg PO DAILY Rosuvastatin Calcium 5 mg PO TUTH Pantoprazole Sodium [Protonix] 40 mg PO DAILY risperiDONE [RisperDAL] 0.25 mg PO BID 30 Days #60 tab Discontinued Ibuprofen [Motrin] 600 mg PO Q8HR PRN #30 tab PRN Reason: Pain HYDROcodone/APAP 5-325MG [[place] 5-325] 1 tab PO Q6HR PRN 3 Days #12 tab PRN Reason: Pain Discharge Medication List amLODIPine [Norvasc] 2.5 mg PO DAILY 05/17/21 [History] Aspirin EC [Ecotrin Low Dose] 81 mg PO DAILY 03/13/23 [History] Donepezil [Aricept] 5 mg PO DAILY 03/13/23 [History] Levothyroxine Sodium [Synthroid] 100 mcg PO DAILY 03/13/23 [History] Oxybutynin Chloride [oxyBUTYnin chloride ER] 10 mg PO DAILY 03/13/23 [History] Sertraline [Zoloft] 50 mg PO DAILY 03/13/23 [History] Pantoprazole Sodium [Protonix] 40 mg PO DAILY 07/16/23 [History] Rosuvastatin Calcium 5 mg PO TUTH 07/16/23 [History] risperiDONE [RisperDAL] 0.25 mg PO BID 30 Days #60 tab 07/18/23 [Rx] Docusate [Colace] 100 mg PO BID #30 capsule 10/16/23 [Rx] Acetaminophen Tab [Tylenol Tab] 650 mg PO Q4H PRN #30 tablet 10/23/23 [Rx] Follow up Appointment(s)/Referral(s): None,Stated [Primary Care Provider] - 1-2 days Deng Camara MD [STAFF PHYSICIAN] - 1 Week Activity/Diet/Wound Care/Special Instructions: No lifting over 10 pounds You may shower. No soaking or tub baths for 2 weeks Very light activity until you are reevaluated at your follow up appointment with your surgeon Discharge Disposition: TRANSFER TO SNF/ECF
--- NOTE | 2023-10-26 13:54 | P.PN ---
Subjective Progress Note Date: 10/26/23 Patient is a 78-year-old female with medical history of small bowel obstruction with multiple surgeries. She was recently hospitalized from October 12 to October 16 and underwent laparoscopic lysis of adhesions. She came back in with worsening abdominal pain had an abdominal pelvis CT done showing free air within the abdomen that could be related to surgery. Patient was admitted to the hospital for ileus versus small bowel obstruction consult to surgery was placed. She received empiric antibiotics with IV Zosyn. Minimally elevated white blood cell count has been normal. Afebrile. Patient does not require antibiotics on discharge she has completed a course of IV Zosyn while inpatient.. Procalc itonin was elevated at 1.75. Her abdominal pain has improved. She is not having any nausea vomiting or diarrhea. She is on labs showing a white count of 10.24, hemoglobin stable at 7.9, sodium 139, potassium 3.2, BUN of 9.2, creatinine 0.4. Her CRP has trended down from 8.40. She continues with conservative management and a follow-up KUB which shows no bowel obstruction or ileus. He will be discharged to subacute rehab. Review of Systems Constitutional: Denied any fatigue denied any fever. Cardio vascular: denied any chest pain, palpitations Gastrointestinal: denied any nausea, vomiting, diarrhea Pulmonary: Denied any shortness of breath cough Neurologic denied any new focal deficits All inpatient medications were reviewed and appropriate changes in these medications as dictated in the interval history and assessment and plan. PHYSICAL EXAMINATION: GENERAL: The patient is alert and oriented x3, not in any acute distress. Well developed, well nourished. HEENT: Pupils are round and equally reacting to light. EOMI. No scleral icterus. No conjunctival pallor. Normocephalic, atraumatic. No pharyngeal erythema. No thyromegaly. CARDIOVASCULAR: S1 and S2 present. No murmurs, rubs, or gallops. PULMONARY: Chest is clear to auscultation, no wheezing or crackles. ABDOMEN: Soft, nontender, nondistended, normoactive bowel sounds. No palpable organomegaly. MUSCULOSKELETAL: No joint swelling or deformity. EXTREMITIES: No cyanosis, clubbing, or pedal edema. NEUROLOGICAL: Gross neurological examination did not reveal any focal deficits. SKIN: No rashes. Assessment and Plan -Postprocedure abdominal pain/ileus status post laparotomy and lysis of lesions postoperative day 14 -Sepsis likely intra-abdominal source blood cultures are negative and patient has completed a course of IV Zosyn for 6 days while in the hospital. -Acute renal failure secondary to prerenal etiology resolved -Metabolic acidosis secondary to sepsis -Acute metabolic encephalopathy, with acute delirium resolved -Acute hyponatremia secondary to hypovolemia -Impaired cognition -History of hypertension -History of dyslipidemia -History of hypothyroid Full code Dr. Vijaya MD I have performed a history and physical examination and medical decision making of this patient, discussed the same with the dictator, and agree with the dictators assessment and plan as written, documented as a scribe. Based on total visit time, I have performed more than 50% of this visit. Objective - Vital Signs Vital signs: Vital Signs Temp 98 F 10/26/23 12:20 Pulse 79 10/26/23 12:20 Resp 16 10/26/23 12:20 BP 150/66 10/26/23 12:20 Pulse Ox 96 10/26/23 12:20 FiO2 Intake & Output 10/25/23 10/26/23 10/26/23 18:59 06:59 18:59 Intake Total 600 Balance 600 Intake: Intake, IV Titration 600 Amount Sodium Chloride 0.9% 1, 600 000 ml @ 50 mls/hr IV . Q20H [facility] Rx#:[id number] Other: Voiding Method Diaper Diaper Diaper External Catheter External Catheter # Voids 2 # Bowel Movements 1 1 - Labs CBC & Chem 7: 10/26/23 05:54 10/26/23 05:54 Labs: Abnormal Lab Results - Last 24 Hours (Table) 10/26/23 10/26/23 Range/Units 05:54 05:54 WBC 10.24 H (4.50-10.00) X 10*3/uL RBC 2.75 L (4.10-5.20) X 10*6/uL Hgb 7.9 L (12.0-15.0) g/dL Hct 24.2 L (37.2-46.3) % RDW 15.9 H (11.5-14.5) % Plt Count 472 H (140-440) X 10*3/uL Potassium 3.2 L (3.5-5.5) mmol/L Carbon Dioxide 17.7 L (21.6-31.8) mmol/L Anion Gap 14.30 H (4.00-12.00) mmol/L Creatinine 0.4 L (0.6-1.5) mg/dL BUN/Creatinine Ratio 23.00 H (12.00-20.00) Ratio Calcium 7.5 L (8.7-10.3) mg/dL C-Reactive Protein 8.40 H (0.00-0.80) mg/dL Assessment and Plan Time with Patient: Less than 30
== END 2023-10-26 16:09 | DRG 388 ==
LOC: EC 19:19 → 4SSUR 10-18 00:18 → 2SICU 10-19 07:40 → 5NMEDONC 10-20 16:59
PROVIDERS: ADMIT Surgery; ATTEND Surgery
PROC: 0D9670Z Drainage of Stomach with Drainage Device, Via Natural or Artificial Opening (ICD-10-PCS; principal; 2023-10-19 12:30)
PROC: 05HA33Z Insertion of Infusion Device into Left Brachial Vein, Percutaneous Approach (ICD-10-PCS; 2023-10-19 12:30)
DX: K91.30 Postprocedural intestinal obstruction, unspecified as to partial versus complete (principal); A41.9 Sepsis, unspecified organism; G93.41 Metabolic encephalopathy; F05 Delirium due to known physiological condition; E87.1 Hypo-osmolality and hyponatremia; E87.20 Acidosis, unspecified; N17.9 Acute kidney failure, unspecified; K91.89 Other postprocedural complications and disorders of digestive system; K56.7 Ileus, unspecified; D72.819 Decreased white blood cell count, unspecified; E03.9 Hypothyroidism, unspecified; Z79.890 Hormone replacement therapy; E78.5 Hyperlipidemia, unspecified; E86.0 Dehydration; E86.1 Hypovolemia; E87.6 Hypokalemia; F32.A Depression, unspecified; I10 Essential (primary) hypertension; E55.9 Vitamin D deficiency, unspecified; M50.30 Other cervical disc degeneration, unspecified cervical region; M51.36 Other intervertebral disc degeneration, lumbar region; M19.90 Unspecified osteoarthritis, unspecified site; L40.9 Psoriasis, unspecified; Z87.19 Personal history of other diseases of the digestive system; R29.6 Repeated falls; Z86.14 Personal history of Methicillin resistant Staphylococcus aureus infection; Z79.82 Long term (current) use of aspirin; Z79.899 Other long term (current) drug therapy; Z82.49 Family history of ischemic heart disease and other diseases of the circulatory system; Z90.710 Acquired absence of both cervix and uterus; Z98.42 Cataract extraction status, left eye; Z98.41 Cataract extraction status, right eye; Z96.1 Presence of intraocular lens; Y84.8 Other medical procedures as the cause of abnormal reaction of the patient, or of later complication, without mention of misadventure at the time of the procedure
CPT/HCPCS: 36410; 36415; 71045; 74018; 74177; 76770; 76937; 80048; 80053; 82150; 82330; 82803; 83605; 83690; 83735; 84100; 84132; 84145; 85025; 85027; 85610; 85730; 86140; 87040; 93005; 96361; 96365; 96375; 96376; 99285